=== PATIENT | female | born 1945 | race Caucasian/White ===

== ENCOUNTER 2020-05-26 14:22 | Emergency (ER) | payer MEDICARE, OTHER, SELFPAY ==
--- NOTE | 2020-05-26 | XR_ITS ---
EXAMINATION: XR third finger, LEFT CLINICAL INFORMATION: Foreign body COMPARISON: None TECHNIQUE: Three views of the left third finger. FINDINGS: 3 views of the left third finger demonstrate a radiopaque metallic staple spanning the third distal phalangeal joints within the volar soft tissues and with question extension of the more distal portion of the stable into the base of the distal phalanx. The staple does not involve the joint space. No definite fracture or dislocation is evident. XR/XR finger LT min 2V IMPRESSION: Metallic staple volar aspect of the third distal interphalangeal joint with question distal portion of staple possibly penetrating the bone base of the distal phalanx.
[2020-05-26 15:29] VITALS: BP 142/67; PULSE 56; RESP 18; TEMP 37; O2SAT 96; BMI 35.9
--- NOTE | 2020-05-26 15:56 | ED.SKABFB ---
HPI - Skin/Abscess/Foreign Bdy General Chief complaint: Recheck/Abnormal Lab/Rx Stated complaint: STAPLE IN FINGER Time Seen by Provider: 05/26/20 15:56 Source: patient Mode of arrival: ambulatory Limitations: no limitations History of Present Illness HPI narrative: 74 y/o female presenting with a staple stuck in her third left finger that happened earlier today after an accident with a staple gun while she was sewing. She presents with no active bleeding. She reports discomfort. Entire staple is in her finger. She does not think there are any additional fragments or more than 1 staple. complaint: foreign body Onset (ago): hour(s) (3) Related Data Previous Rx's Medication Instructions Recorded cephalexin [Keflex] 500 mg PO QID #40 cap 05/26/20 Allergies Allergy/AdvReac Type Severity Reaction Status Date / Time levofloxacin [From LEVAQUIN] AdvReac Mild flushed Verified 05/26/20 15:29 Review of Systems Review of Systems: Constitutional: No Fever, No Chills Cardiovascular: No Chest Pain, No SOB Respiratory: No Cough, No Sputum Gastrointestinal: No Nausea, No Vomiting, No Diarrhea, No abdominal Pain Musculoskeletal: + joint pain, No Myalgias Skin: No Skin Lesions, No rash Neuro: No Weakness, No Numbness Psych: No Anxiety/Panic, No Depression Heme/Lymph: No Bruising, No Lymphadenopathy PMFSH Past Medical History Attestation statement: The following information was validated with the patient. Medical History Diabetes HTN (hypertension) Thyroid activity decreased Social History Social History Smoking Status: Never smoker Use of substances other than those prescribed or required for medical reasons: No Advance Directives: No Advance Directives Information Provided: No Physical Exam Vital Signs: Vital Signs: Last Vital Signs Temp 98.6 F 05/26/20 15:29 Pulse 56 05/26/20 15:29 Resp 18 05/26/20 15:29 BP 142/67 H 05/26/20 15:29 Pulse Ox 96 05/26/20 15:29 Body Mass Index 35.9 Appearance: Alert. Oriented X3. No acute distress. HEENT: normal inspection CVS: Normal heart rate and rhythm. Pulses normal. Respiratory: No respiratory distress. Skin: Skin warm and dry. Normal skin color. Normal skin turgor. No rashes. Extremities: volar aspect of left 3rd digit with flat edge of metallic staple parallel to the skin at the DIP joint, no active bleeding. no surrouning erythema. NV intact. Neuro: Oriented X 3. No motor deficit. No sensory deficit. Course Course Course Narrative: 74 y/o female presents with a staple in her finger. XR shows Metallic staple volar aspect of the third distal interphalangeal joint with question distal portion of staple possibly penetrating the bone base of the distal phalanx. Staple was successfully removed. Repeat imaging pending. Tdap given. Reevaluation(s) Reevaluation #1: Repeat XR shows: Stable removed. No visible fracture or bone defect remaining Mild osteoarthritis Finger was soaked in hydrogen peroxide/saline mix. Will start on Keflex to prevent infection and have her follow up with PCP. Case was discussed with ortho for possible need for f/u with them vs hand surgery and they recommended f/u with PCP for wound monitoring. Stable for discharge. Patient counseled, all questions were answered. Procedures Foreign Body Removal Time Out Performed: no Site: left Description of foreign body: other (metallic staple ) Sedation/Analgesia: none Technique: removal with forceps Confirmed by:: direct visualization and radiograph Complications: none Post-procedure exam: awake, alert Neurovascular: normal distal pulse, normal capillary fill, distal light touch sensation intact, distal motor function normal and no signs of compartment syndrome Critical Care Time Critical Care Time Critical Care Time: No Discharge Plan Discharge Clinical Impression: Foreign body finger Patient Disposition: Home, Self-Care Instructions: Soft Tissue Foreign Body (ED), Puncture Wound (ED) Additional Instructions: X-rays show the staple was removed completely and there are no bone defect or fracture. Use topical bacitracin or triple antibiotic ointment to the wound 2 times per day. Take motrin and/or tylenol as needed for discomfort. Elevate hand/finger when able to help with pain. Monitor for signs of infection including swelling, redness, worsening pain or drainage of pus. Come back to the ER if you develop these. Case was discussed with Orthopedics and it is recommended that you follow up with your doctor to monitor the wound. Follow up with your doctor early next week for wound evaluation. Prescriptions: New cephalexin [Keflex] 500 mg capsule 500 mg PO QID Qty: 40 RF: 0
--- NOTE | 2020-05-26 16:42 | XR_ITS ---
EXAMINATION: XR FINGER, LEFT CLINICAL INFORMATION: Status post foreign body removal COMPARISON: X-rays of the left finger and hand performed earlier same day 3:45 PM TECHNIQUE: 3 views of the middle finger including AP view of the hand FINDINGS: The metallic staple has been removed. I do not see a fracture or visible bone defect. There is minimal scattered osteoarthritis of the interphalangeal joints and MCP joints manifested by small subchondral cysts and/or small marginal osteophytes. XR/XR finger LT min 2V IMPRESSION: Stable removed. No visible fracture or bone defect remaining Mild osteoarthritis
--- NOTE | 2020-05-26 17:00 | PC.NURSE ---
STAPLE WAS REMOVED BY PROVIDER. LEFT 3RD FINGER SOAKED IN HYDROGEN PEROXIDE. WAITING REPEAT XRAY RESULTS.
== END 2020-05-26 18:04 | disposition home or self-care (01) ==
PROVIDERS: Emergency Provider Internal Medicine; PCP Internal Medicine
DX: S61.243A Puncture wound with foreign body of left middle finger without damage to nail, initial encounter (principal); S60.413A Abrasion of left middle finger, initial encounter; M79.645 Pain in left finger(s); I10 Essential (primary) hypertension; E11.9 Type 2 diabetes mellitus without complications; Y28.8XXA Contact with other sharp object, undetermined intent, initial encounter; Y93.9 Activity, unspecified; Y92.009 Unspecified place in unspecified non-institutional (private) residence as the place of occurrence of the external cause; Y99.9 Unspecified external cause status; Z79.899 Other long term (current) drug therapy; Z23 Encounter for immunization
CPT/HCPCS: 10120; 73140; 90471; 90715; 99284

== ENCOUNTER 2020-08-22 07:34 | Emergency (ER) | payer MEDICARE, OTHER, SELFPAY ==
--- NOTE | ~2020-08-22 | US_ITS ---
EXAMINATION: US ABDOMEN LIMITED CLINICAL INFORMATION: Abdominal pain.. COMPARISON: Previous MRI and CT of the abdomen November 2019 TECHNIQUE: Real-time imaging of the right upper quadrant abdominal viscera. FINDINGS: PANCREAS: Normal. LIVER: Normal. The liver is normal in size. The liver contour is normal. Parenchymal echogenicity is normal. No focal hepatic lesion. There is intrahepatic biliary duct dilatation. This is similar to previous exams. GALLBLADDER: Surgically removed. COMMON BILE DUCT: Slightly dilated measuring 1 -1.3 cm in diameter. RIGHT KIDNEY: The right kidney appears slightly lobulated in contour and there is right renal cortical thinning. No hydronephrosis. No renal calculi or focal parenchymal lesions. The kidney measures 11 cm in maximum dimension. FREE FLUID: None. US/US abdomen limited IMPRESSION: Intra and extrahepatic biliary duct dilatation. This does not appear appreciably changed from previous CT and MRI November 2019. No common bile duct stone is seen.
--- NOTE | 2020-08-22 07:41 | ED_ITS ---
HPI - Abdominal Pain General Chief Complaint: Abdominal Pain Stated Complaint: abd pain Time Seen by Provider: 08/22/20 07:41 Source: patient Mode of arrival: ambulatory Limitations: no limitations History of Present Illness HPI narrative: Patient with epigastric pain states it feels like her prior gallstone attack. Patient has not had anything to eat in the last 4 days. 9 months ago she had ERCP and papilotomy MD elicited complaint: abdominal pain Pertinent past history: other (cholecystitisw) Onset (ago): day(s) Pain Consistency: intermittent Location: epigastric Severity: moderate Quality: stabbing Exacerbating factors: eating Associated symptoms: nausea and vomiting Related Data Previous Rx's Medication Instructions Recorded cephalexin [Keflex] 500 mg PO QID #40 cap 05/26/20 omeprazole 20 mg PO BID #30 cap 08/22/20 Allergies Allergy/AdvReac Type Severity Reaction Status Date / Time levofloxacin [From LEVAQUIN] AdvReac Mild flushed Verified 05/26/20 15:29 Review of Systems Constitutional: Reports no additional constitutional complaints Eyes: Reports no additional eye complaints Denies dizziness Cardiovascular: Reports no additional cardiovascular complaints Respiratory: Reports as per HPI Gastrointestinal: Reports no additional gastrointestinal complaints Genitourinary: Reports no additional female genitourinary complaints Musculoskeletal: Reports no additional musculoskeletal complaints Skin/Breast: Denies rash Denies dizziness and Denies Sensory deficit (Neuro) Psychiatric: Denies anxiety Physical Exam Vital Signs: Vital Signs: Last Vital Signs Temp 98 F 08/22/20 07:53 Pulse 72 08/22/20 07:53 Resp 18 08/22/20 07:53 BP 187/90 H 08/22/20 07:53 Pulse Ox 98 08/22/20 07:53 Body Mass Index 37.0 Const: Other: elderly in pain Nutritional Appearance: obese Orien tation/consciousness: oriented to person and patient oriented x3 Limitations: no limitations HENMT: Head: Yes normal to inspection Ears: external ears normal General nose exam: Normal external nose present Mouth: Normal oral and palatal mucosa present and oropharynx normal Throat: Yes posterior oropharynx normal Eyes: General: appearance normal, both eyes and all related structures Neck: Other: supple Neck: Yes normal visual inspection Chest: Chest palpation & inspection: normal inspection of the chest Resp: Auscultation: clear to auscultation bilaterally Cardio: Jugular venous distension: no JVD Rate: regular rate Rhythm: regular rhythm Heart sounds: S1 normal heart sound present and S2 normal heart sound present GI: Other: epigastric and right upper quadrant tenderness no guarding or rebound. Palpation (GI): Soft to palpation and No hepatosplenomegaly present Auscultation: normal bowel sounds : General: Yes no CVA tenderness Back/Spine/Pelvis: Back: no CVA tenderness Skin: General skin exam: no rashes or lesions noted Neuro: General: oriented to person and patient oriented x3 Cranial nerves: Yes CN's II-XII intact bilaterally Motor exam (neuro): 5/5 motor strength present throughout Sensory Exam: No Sensory deficit (Neuro) Extrem: General: Yes normal to inspection Psych: Appearance: grossly normal Course Course Course Narrative: discussed with Dr. Kingston will increase omeprazole BID and will follow up expected to have Biliary obstruction MDM - Abdominal Pain MDM Narrative Medical decision making narrative: concerned about biliary obstruction, gastritis, hepatitis. Labs normal ultrasound shows mild biliary diliation which is expected Differential Diagnosis Differential diagnosis: Likely abdominal pain, gastritis and peptic ulcer disease Lab Data Result diagrams: 08/22/20 08:02 08/22/20 08:02 Labs: Lab Results 08/22/20 08/22/20 08/22/20 Range/Units 08:02 08:02 10:39 WBC 7.7 (4.8-10.8) X10*3/uL RBC 4.34 (4.20-5.50) X10*6/uL Hgb 13.3 (12.0-16.0) g/dl Hct 41.1 (37-47) % MCV 94.7 (80-98) fL MCH 30.6 (27.0-33.0) pg MCHC 32.4 (31.0-35.0) g/dl RDW 12.5 (11.0-16.0) % Plt Count 249 (160-400) X10*3/uL MPV 10.2 (9.4-12.3) fL Immature Gran % (Auto) 0.3 (0.0-0.4) % Neut % (Auto) 63.0 (45-73) % Lymph % (Auto) 26.4 (20-40) % [place] % (Auto) 8.5 (2-11) % Eos % (Auto) 1.4 (0-4) % Baso % (Auto) 0.4 (0-2) % Lymph # (Auto) 2.0 (1.2-4.9) X10*3/uL [place] # (Auto) 0.7 (0.1-1.2) X10*3/uL Eos # (Auto) 0.1 (0.0-0.4) X10*3/uL Baso # (Auto) 0.0 (0.0-0.2) X10*3/uL Abs Immat Gran (auto) 0.02 (0.00-0.03) X10*3/uL Absolute Neuts (auto) 4.9 (2.0-8.3) X10*3/uL Absolute Nucleated RBC 0.000 (0.0-0.012) X10*3/uL Nucleated RBC % (auto) 0.0 (0.0-0.2) /100WBC Sodium 138 (135-145) mmol/L Potassium 5.4 H (3.3-5.1) mmol/L Chloride 98 (96-108) mmol/L Carbon Dioxide 28 (22-29) mmol/L Anion Gap 17 (12-20) BUN 23 H (9-16) mg/dL Creatinine 1.63 H (0.5-1.4) mg/dL Estim Creat Clear Calc 29.9 Estimated GFR 31 Random Glucose 209 H (60-115) mg/dL Calcium 9.2 (8.4-10.2) mg/dL Total Bilirubin 0.5 (0.0-1.0) mg/dL Direct Bilirubin 0.2 (0.0-0.5) mg/dL AST 9 (5-31) U/L ALT 11 (0-31) U/L Alkaline Phosphatase 113 (39-117) U/L Troponin I High Sens 5.9 (<3.5-17.0) ng/L Total Protein 7.3 (6.5-8.0) g/dL Albumin 4.1 (3.5-5.0) g/dL Lipase 13 (8-78) U/L ECG Data Attestation: I personally reviewed and interpreted this ECG as follows: Interpretation: sinus 70, new LBBB, flipped ts I and AVL and V6 Discharge Plan Discharge Clinical Impression: Abdominal pain Qualifiers: Abdominal location: right upper quadrant Qualified Code(s): R10.11 - Right upper quadrant pain Gastritis Qualifiers: Gastritis type: unspecified gastritis Chronicity: chronic Gastritis bleeding: without bleeding Qualified Code(s): K29.50 - Unspecified chronic gastritis without bleeding Patient Disposition: Home, Self-Care Instructions: Abdominal Pain (ED) Prescriptions: New omeprazole 20 mg capsule,delayed release(DR/EC) 20 mg PO BID Qty: 30 RF: 0 No Action cephalexin [Keflex] 500 mg capsule 500 mg PO QID Qty: 40 RF: 0 Referrals: [place] Raymundo MD [Primary Care Provider] - 2 days [facility] Past Medical History Medical History Diabetes HTN (hypertension) Thyroid activity decreased Social History Social History Alcohol intake: never Smoking Status: Never smoker Use of substances other than those prescribed or required for medical reasons: No Advance Directives: Yes Advance Directives Information Provided: Yes Advance Directives on File: No
[2020-08-22 07:53] VITALS: BP 187/90; PULSE 72; RESP 18; TEMP 36.6; O2SAT 98; BMI 37.0
--- NOTE | 2020-08-22 08:01 | ECG_ITS ---
Test Reason : EPIGASTRIC PAIN Blood Pressure : / mmHG Vent. Rate : 073 BPM Atrial Rate : 073 BPM P-R Int : 176 ms QRS Dur : 138 ms QT Int : 442 ms P-R-T Axes : 044 -09 139 degrees QTc Int : 486 ms Normal sinus rhythm Left bundle branch block Abnormal ECG When compared with ECG of 24-JUL-2017 19:16, MT interval has decreased Left bundle branch block is now Present Borderline criteria for Anterior infarct are no longer Present Referred By: Jovan Simons Electronically Signed By:COLUMBA ASIF MD
[2020-08-22 08:07] LABS: MANUAL DIFF FLAG NO
[2020-08-22 08:09] LABS: Basophils Percent Auto 0.4 % (0-2); Eosinophils Absolute Auto 0.1 X10*3/uL (0.0-0.4); Eosinophils Percent Auto 1.4 % (0-4); Hematocrit 41.1 % (37-47); Hemoglobin 13.3 g/dl (12.0-16.0); Imm Gran Abs Auto 0.02 X10*3/uL (0.00-0.03); Imm Gran Pct Auto 0.3 % (0.0-0.4); Lymphocytes Percent Auto 26.4 % (20-40); Mean Corpuscular HGB Conc 32.4 g/dl (31.0-35.0); Mean Corpuscular Hemoglobin 30.6 pg (27.0-33.0); Mean Corpuscular Volume 94.7 fL (80-98); Mean Platelet Volume 10.2 fL (9.4-12.3); Monocytes Absolute Auto 0.7 X10*3/uL (0.1-1.2); Monocytes Percent Auto 8.5 % (2-11); Neutrophils Absolute Auto 4.9 X10*3/uL (2.0-8.3); Platelet Count 249 X10*3/uL (160-400); Red Blood Count 4.34 X10*6/uL (4.20-5.50); Red Cell Distribution Width 12.5 % (11.0-16.0); White Blood Count 7.7 X10*3/uL (4.8-10.8)
[2020-08-22] MEDS: Pantoprazole Sodium 40 MG/10 ML VIAL IVPUSH (08:12)
[2020-08-22] MEDS: ondansetron HCL 4 MG/2 ML VIAL IVPUSH ×2 (08:12→13:45)
[2020-08-22] MEDS: 0.9 % Sodium Chloride 1,000 ML 125 ML IVCONT (08:12)
--- NOTE | 2020-08-22 08:18 | PC.NURSE ---
iv established, blood labs obtained and sent, seen by provider, ekg completed. placed on tele, hr appears regular. medicated per emar. wctm.
[2020-08-22 08:33] LABS: Alanine Aminotransferase 11 U/L (0-31); Albumin Level 4.1 g/dL (3.5-5.0); Alkaline Phosphatase 113 U/L (39-117); Anion Gap 17 (12-20); Aspartate Amino Transferase 9 U/L (5-31); Bilirubin Direct 0.2 mg/dL (0.0-0.5); Bilirubin Total 0.5 mg/dL (0.0-1.0); Blood Urea Nitrogen 23 mg/dL (9-16); Calcium 9.2 mg/dL (8.4-10.2); Carbon Dioxide 28 mmol/L (22-29); Chloride 98 mmol/L (96-108); Creatinine Clr Calc Pharmacy 29.9; Estimated Glomerular Filt Rate 31; Glucose Random 209 mg/dL (60-115); Lipase 13 U/L (8-78); Potassium 5.4 mmol/L (3.3-5.1); Sodium 138 mmol/L (135-145); Total Protein 7.3 g/dL (6.5-8.0)
[2020-08-22] MEDS: Lidocaine HCl Viscous 2 % 15 ML SOLUTION MUCOUS MEM (08:41)
[2020-08-22] MEDS: PHENobarb/Hyoscy/Atropine/Scop 10 ML ELIXIR PO (08:41)
[2020-08-22] MEDS: Magnesium Hydrox/Alum Hydrox 30 ML ORAL.SUSP PO (08:42)
[2020-08-22 11:18] LABS: Troponin-I High Sensitivity 5.9 ng/L (<3.5-17.0)
== END 2020-08-22 13:58 | disposition home or self-care (01) ==
PROVIDERS: Emergency Provider Emergency Medicine; PCP Internal Medicine
DX: K29.50 Unspecified chronic gastritis without bleeding (principal); R10.11 Right upper quadrant pain; E11.9 Type 2 diabetes mellitus without complications; I10 Essential (primary) hypertension; Z79.899 Other long term (current) drug therapy
CPT/HCPCS: 36415; 76705; 80048; 80076; 83690; 84484; 85025; 93005; 96365; 96375; 96376; 99284; J2405

== ENCOUNTER 2020-08-28 08:33 | Outpatient (REF) | payer MEDICARE, OTHER, SELFPAY ==
--- NOTE | ~2020-08-28 | MR_ITS ---
EXAMINATION: MR ABDOMEN WITHOUT CONTRAST CLINICAL INFORMATION: Epigastric abdominal pain. History choledocholithiasis. COMPARISON: Ultrasound abdomen 04/21/2021, MR abdomen 16/09/2019, CT abdomen 12/19/2019 TECHNIQUE: MR abdomen is performed without gadolinium contrast. Additional MRCP sequences performed with additional maximum intensity projection MIP images generated on the MR workstation and uploaded to PACS. FINDINGS: LUNG BASES: The visualized lung bases are unremarkable. LIVER, GALLBLADDER, AND BILIARY TREE: The liver is normal in size, smooth in contour, and normal in signal. No focal hepatic lesion or biliary ductal dilatation is present. There has been prior cholecystectomy. The common hepatic duct and common bile duct are smooth in caliber and show no intraluminal filling defects. Common duct measures 1.0 cm compared with prior measurement 1.3 cm on MR 12/20/2019. PANCREAS: Normal in size and contour and signal. Normal pancreatic duct. SPLEEN: Unremarkable. ADRENAL GLANDS: Unremarkable. KIDNEYS AND URETERS: The kidneys are normal in size and shape. No hydronephrosis. No perinephric stranding. GASTROINTESTINAL TRACT: No bowel obstruction. No ascites or fluid collection. ABDOMINAL WALL: No significant hernia is appreciated. LYMPH NODES: No lymphadenopathy. VASCULAR: Unremarkable. OSSEOUS STRUCTURES: Degenerative disc changes lower lumbar spine L3-L4 through L5-S1. MR/MR abdomen wo con IMPRESSION: 1. Prior cholecystectomy. No biliary ductal dilatation or choledocholithiasis. 2. Pancreas unremarkable. 3. No hydronephrosis. 4. No ascites or fluid collection.
== END 2020-08-28 08:34 | disposition home or self-care (01) ==
LOC: HO.MRI 08:33
PROVIDERS: Visit Provider Internal Medicine
DX: R10.13 Epigastric pain (principal); K83.8 Other specified diseases of biliary tract
CPT/HCPCS: 74181

== ENCOUNTER 2020-09-24 10:23 | Day surgery (SDC) | payer MEDICARE, OTHER, SELFPAY ==
[2020-09-24 10:55] VITALS: BP 161/68; PULSE 70; RESP 18; TEMP 36.5; O2SAT 97; BMI 37.7; BMI 38.2
[2020-09-24] MEDS: Lactated Ringers 1,000 ML 50 ML IV (11:19)
[2020-09-24 11:48] LABS: Glucose, Whole Blood 110 mg/dL (60-115)
--- NOTE | 2020-09-24 12:29 | P.CONAN_ITS ---
[facility] Past Medical History Medical History Diabetes HTN (hypertension) Thyroid activity decreased Social History Social History Alcohol intake: never Smoking Status: Never smoker Second Hand Smoke Exposure: No Use of substances other than those prescribed or required for medical reasons: No Advance Directives: No Advance Directives Information Provided: Yes Recently lost weight without trying: No Meds Allergies Allergy/AdvReac Type Severity Reaction Status Date / Time levofloxacin [From LEVAQUIN] AdvReac Mild flushed Verified 05/26/20 15:29 Active Medications: Current Medications Generic Name Dose Route Start Last Admin Trade Name Freq PRN Reason Stop Dose Admin Lactated Ringer's 1,000 mls @ 50 mls/hr 09/24/20 07:30 09/24/20 11:19 Lr IV 50 mls/hr .Q20H YADY Administration Sodium Biphosphate/Sodium Phosphate 133 ml 09/24/20 06:04 Sodium Phosphate,[place]-Dibasic 133 Ml Enema PA ONCE PRN Poor Colonoscopy Prep Results Exam Exam Date and Time: September 24, 2020 1229 Height,Weight and Vital Signs: Height 5 ft Weight 88.904 kg Last Vital Signs Temp 97.7 F 09/24/20 10:55 Pulse 70 09/24/20 10:55 Resp 18 09/24/20 10:55 BP 161/68 H 09/24/20 10:55 Pulse Ox 97 09/24/20 10:55 Pertinent Lab Results Pertinent Lab Results: Laboratory Tests 09/24/20 11:03 POC Glucose 110 Airway Mallampati Class: II (Edentulous) TM Dist: >3cm Neck ROM: Full Heart: RRR Lungs: CtAcBL Assessment and Plan Assessment Anesthesia Assessment: Anesthesia Plan Discussed and Chart Reviewed Final Anesthetic Review NPO: Yes (Sip water with medicine) ASA Class: III Final Preanesthetic Review: No Changes in Pt Med Stat and Consent Obtained/Reviewed Patient Risk: Intermediate Procedure Risk: Intermediate Anesthetic Plan Anesthetic Plan: MAC: Disposition: Standard PACU
[2020-09-24 13:40] VITALS: BP 128/54; PULSE 62; RESP 16; TEMP 36.6; O2SAT 96
--- NOTE | 2020-09-24 13:46 | PM.OP ---
Brief Operative Note Date of Service: 09/24/20 Pre-op diagnosis: GERD,Screening Post-op diagnosis: other (Hiatal hernia, Gastritis, Colon polyp, Diverticulosis) Procedure: EGD with biopsy, Colonoscopy to the cecum and TI with biopsy and removal of polyp Surgeon: Carlo Da Silva Anesthesia: MAC Estimated blood loss (mL): 4.0 Pathology: other (A. Gastric antrum B. Colon polyp at 40cm) Condition: stable Disposition: PACU
[2020-09-24 13:55] VITALS: BP 145/56; PULSE 62; RESP 16; O2SAT 96
--- NOTE | 2020-09-24 14:07 | OP_ITS ---
SURGEON: Carlo Da Silva MD INDICATIONS: The patient presents for evaluation of abdominal discomfort, gastroesophageal reflux, and colorectal cancer screening. Full consent has been obtained from her for this, including risks of bleeding and perforation. PREOPERATIVE DIAGNOSIS: POSTOPERATIVE DIAGNOSIS: PROCEDURE PERFORMED: Esophagogastroduodenoscopy with biopsies, and colonoscopy to the cecum and terminal ileum with biopsy and removal of polyp. ESTIMATED BLOOD LOSS: COMPLICATIONS: ANESTHESIA: Monitored anesthesia care. ASSISTANTS: SPECIMENS: PREOPERATIVE DIAGNOSES: Gastroesophageal reflux, abdominal pain, colorectal cancer screening. POSTOPERATIVE DIAGNOSES: Gastroesophageal reflux, abdominal pain, colorectal cancer screening, gastritis, hiatal hernia, colon polyp, diverticulosis and internal hemorrhoids. DESCRIPTION OF PROCEDURE: The patient was placed in the left lateral decubitus position. The Olympus video gastroscope was passed in the posterior oropharynx and upper esophagus under direct vision. The scope was passed slowly into the distal esophagus. The gastroesophageal junction appeared normal at 35 cm. There was no sign of any esophagitis nor Cervantes's mucosa. The scope was entered into the stomach. There was a small hiatal hernia. The scope was advanced to the pylorus and the duodenum was cannulated to the descending portion. The duodenum including the bulb appeared normal without mass or ulceration. The scope was withdrawn back into the stomach. The gastric antrum and body had diffuse changes of a gastritis with some erythema and edema, but no erosions or ulceration. There was good peristalsis. Biopsies were obtained. The scope was retroflexed visualizing the proximal stomach carefully, which had similar changes of gastritis with some erythema and edema, but no ulceration nor mass. The scope was straightened out and withdrawn back into the esophagus. The esophageal mucosa appeared normal. The scope was withdrawn from the patient. She was turned around for the colonoscopy. The digital rectal exam revealed no abnormalities. The Olympus video pediatric colonoscope was entered into the rectum and advanced easily to the cecum. Once in the cecum, I did identify normal-appearing cecal pouch with appendiceal orifice and a normal-appearing ileocecal valve. The terminal ileum was cannulated and appeared normal. The scope was withdrawn back in the colon. The entire cecum and ileocecal valve appeared normal. The scope was slowly withdrawn assessing all mucosal surfaces carefully. Preparation was excellent. At 40 cm, was a flat approximately 4 or 5 mm polyp, which was biopsied and removed. I did not visualize any other polyps, colitis, nor angiodysplasia. There was a moderate amount of sigmoid diverticulosis. In the rectum, scope was retroflexed visualizing small internal hemorrhoids, but no other pathology. The rectal mucosa appeared normal. The scope was straightened out and withdrawn from the patient. She tolerated the procedure well and was returned to the recovery area in stable condition. IMPRESSION: 1. Small hiatal hernia. 2. Gastritis. 3. Small colon polyp. 4. Diverticulosis. 5. Internal hemorrhoids. PLAN: The results of the pathology will be checked. Even if the colon polyp is a tubular adenoma, I do not think she will need any further screening colonoscopies given her age and these minimal findings. She was advised not to use any aspirin and NSAIDs for 1 week. She was advised to continue her daily omeprazole for relief of reflux. If Helicobacter pylori is present in the gastric biopsies, we would then decide whether that needs to be treated depending upon her clinical course. However at this point, she is doing well on omeprazole and reports that her previous abdominal discomfort and reflux are much improved. MD BRYAN Worthington/VANESSA / [phone]
[2020-09-24 14:13] VITALS: BP 169/60; PULSE 64; RESP 16; TEMP 36.6; O2SAT 96
[2020-09-24] MEDS: oxyCODONE HCl Immed Release 5 MG TABLET PO (14:17)
--- NOTE | 2020-09-24 14:28 | P.EN_ITS ---
Event Note Date of Service: 09/24/20 Event Note: GI-EGD-Full note dictated Findings: 1. Severe erosive esophagitis involving the lower 50% of the esophagus. Biopsied at 25cm. 2. Gastritis-antrum biopsied x 3 3. Small hiatal hernia Rec: Start po PPI BID for 2 months and then QD [facility]. 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 F/U labs in AM. Resume diet today. D/W . Thanks
--- NOTE | 2020-09-24 14:32 | PM.OP ---
Brief Operative Note Date of Service: 09/24/20 Pre-op diagnosis: UGI bleed Post-op diagnosis: other (Severe erosive esophagitis, Gastritis, Hiatal hernia) Procedure: EGD with biopsies Surgeon: Carlo Da Silva Anesthesia: MAC Estimated blood loss (mL): 5.0 Pathology: other (A. Gastric antrum B. Esophagus at 25cm) Condition: stable Disposition: PACU
== END 2020-09-24 14:44 | disposition home or self-care (01) ==
PROVIDERS: PCP Internal Medicine; Visit Provider Internal Medicine
PROC: (CPT 45380; principal; 2020-09-24 11:30)
DX: Z12.11 Encounter for screening for malignant neoplasm of colon (principal); K51.40 Inflammatory polyps of colon without complications; K57.30 Diverticulosis of large intestine without perforation or abscess without bleeding; K64.8 Other hemorrhoids; K21.9 Gastro-esophageal reflux disease without esophagitis; K29.50 Unspecified chronic gastritis without bleeding; K44.9 Diaphragmatic hernia without obstruction or gangrene; I10 Essential (primary) hypertension; E11.9 Type 2 diabetes mellitus without complications; Z88.1 Allergy status to other antibiotic agents; Z79.899 Other long term (current) drug therapy
CPT/HCPCS: 45380; 43239; 82947; 88305; 88342

== ENCOUNTER 2022-07-31 10:12 | Outpatient (REF) | payer MEDICARE, OTHER, SELFPAY ==
--- NOTE | ~2022-07-31 | XR_ITS ---
EXAMINATION: XR CERVICAL SPINE CLINICAL INFORMATION: Neck pain. COMPARISON: None. TECHNIQUE: 3 views of the cervical spine were obtained. FINDINGS: At the C4-C5 level, there is moderate to severe disc space narrowing with endplate osteophytes indicative of moderate to severe degenerative disc disease. There is also Grade 1 retrolisthesis of C4 on C5 related to this degenerative change. Possible facet arthrosis. C5-C6: Moderate degenerative disc changes with endplate osteophytes and disc-space narrowing. No definite facet arthrosis. Remaining disc spaces otherwise normal with vertebral body height normal throughout. Vertebral bodies normally aligned except for the C4-C5 level. Surrounding bone and soft tissues otherwise unremarkable. XR/XR cervical spine 3V IMPRESSION: Spondylosis of the cervical spine with degenerative disc disease most prominent at the C4-C5 level where there is also Grade 1 retrolisthesis.
--- NOTE | ~2022-07-31 | XR_ITS ---
EXAMINATION: XR LUMBOSACRAL SPINE CLINICAL INFORMATION: Lumbago with sciatica. COMPARISON: Prior imaging examinations including most recent CT scan of the abdomen and pelvis November 2019 and x-rays lumbar sacral spine September 2012. TECHNIQUE: Three views of the lumbosacral spine. FINDINGS: There is advanced degenerative disc changes at L3-L4 L4-L5 and L5-S1 with marked endplate osteophytes, subchondral sclerosis, and variable disc space narrowing. Postsurgical changes are also noted posteriorly at the L4-L5 level, unchanged overlying the spinous processes. There is associated Grade 1 anterolisthesis at L4-L5 and L5-S1 levels, unchanged. Additional mild degenerative disc changes present within the remaining lumbar sacral spine manifested by endplate osteophytes without disc space narrowing. There is no fracture or bone lesion. Prominent arterial calcification noted in the abdomen including the aorta and branch vessels. 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 Progression compared with the prior x-ray September 2012.
[2022-07-31 14:08] LABS: Hematocrit 34.9 % (37.0-47.0); Hemoglobin 10.7 g/dl (12.0-16.0); Mean Corpuscular HGB Conc 30.7 g/dl (31.0-35.0); Mean Corpuscular Hemoglobin 29.2 pg (27.0-33.0); Mean Corpuscular Volume 95.4 fL (80.0-98.0); Platelet Count 256 X10*3/uL (160-400); Red Blood Count 3.66 X10*6/uL (4.20-5.50); Red Cell Distribution Width 14.1 % (11.0-16.0); White Blood Count 7.5 X10*3/uL (4.8-10.8)
[2022-07-31 14:41] LABS: Anion Gap 14 (12-20); Blood Urea Nitrogen 42 mg/dL (9-16); Calcium 8.5 mg/dL (8.4-10.2); Carbon Dioxide 33 mmol/L (22-29); Chloride 99 mmol/L (96-108); Estimated Glomerular Filt Rate 20; Iron 61 mcg/dL (30-160); Percent Iron Saturation 19 % (15-50); Phosphorus 3.8 mg/dL (2.7-4.5); Potassium 3.7 mmol/L (3.3-5.1); Sodium 142 mmol/L (135-145); Total Iron Binding Capacity 324 mcg/dL (228-428); Unsaturated Iron Binding 263 ug/dL
[2022-07-31 14:57] LABS: Vitamin D 25-OH Total 9.4 ng/mL (>30)
[2022-08-04 15:44] LABS: Calcium (PTHI) 8.7 mg/dL (8.6-10.4); PTHI 238 pg/mL (16-77)
== END 2022-07-31 10:13 | disposition home or self-care (01) ==
LOC: HO.HMGCX 10:12
PROVIDERS: Internal Medicine Nephrology; PCP Internal Medicine; Visit Provider Internal Medicine
DX: E11.21 Type 2 diabetes mellitus with diabetic nephropathy (principal); N18.4 Chronic kidney disease, stage 4 (severe); M54.40 Lumbago with sciatica, unspecified side
CPT/HCPCS: 36415; 72040; 72100; 80051; 82306; 82310; 82565; 83540; 83970; 84100; 84520; 85027

== ENCOUNTER 2022-10-07 11:12 | Emergency (ER) | payer MEDICARE, OTHER, SELFPAY ==
[2022-10-07 11:35] VITALS: BP 179/61; PULSE 68; RESP 18; TEMP 36.8; O2SAT 95; BMI 38.2
--- NOTE | 2022-10-07 11:35 | ED.GENADULT ---
HPI - General Adult General Chief complaint: General Medical <BON Neely - Last Filed: 10/11/22 10:59> Stated complaint: Blocked ears/Upper abd pain/Unable to urinate <BON Neely - Last Filed: 10/11/22 10:59> Time Seen by Provider: 10/07/22 12:47 <BON Neely - Last Filed: 10/11/22 10:59> Source: patient <Jovan Simons MD - Last Filed: 10/07/22 14:01> Mode of arrival: ambulatory <Jovan Simons MD - Last Filed: 10/07/22 14:01> Limitations: no limitations <Jovan Simons MD - Last Filed: 10/07/22 14:01> History of Present Illness HPI narrative: patient with abdominal pain, difficulty urinating for 5 days, She feels the urge to urinate but she can't pee. <Jovan Simons MD - Last Filed: 10/07/22 14:01> Related Data Home medications: Previous Rx's Medication Instructions Recorded cephalexin 500 mg capsule (Keflex) 500 mg PO QID #40 caps 05/26/20 omeprazole 20 mg capsule,delayed 20 mg PO BID #30 caps 08/22/20 release ondansetron HCl 4 mg tablet 4 mg PO Q8H PRN nausea and 08/22/20 (Zofran) vomiting #10 tabs cephalexin 500 mg capsule 500 mg PO Q6H 7 days #28 caps 10/07/22 polymyxin B sulfate 10,000 1 drp ophthalmic (eye) QID 7 days 10/09/22 unit-trimethoprim 1 mg/mL eye #10 mL drops (Polytrim) <BON Neely - Last Filed: 10/11/22 10:59> Allergies/adverse reactions: Allergies Allergy/AdvReac Type Severity Reaction Status Date / Time levofloxacin [From LEVAQUIN] AdvReac Mild flushed Verified 10/09/22 10:50 <BON Neely - Last Filed: 10/11/22 10:59> Review of Systems Review of Systems: Yes all other systems are reviewed and are negative <Jovan Simons MD - Last Filed: 10/07/22 14:01> Gastrointestinal: Gastrointestinal: Reports abdominal pain <Jovan Simons MD - Last Filed: 10/07/22 14:01> Comments: inability to urinate <Jovan Simons MD - Last Filed: 10/07/22 14:01> [facility] Past Medical History Medical History: Medical History Diabetes HTN (hypertension) Thyroid activity decreased <BON Neely - Last Filed: 10/11/22 10:59> Social History Social History: Social History Alcohol intake: never Patient Tobacco Use Status: Never used Tobacco Second Hand Smoke Exposure: No Advance Directives Date on File: 08/22/20 <BON Neely - Last Filed: 10/11/22 10:59> Physical Exam ED Vital Signs: Vital Signs - 24 hr 10/07/22 11:35 Temperature 98.3 F Pulse Rate 68 Respiratory Rate 18 Blood Pressure 179/61 H Pulse Oximetry 95 Oxygen Delivery Method Room Air BMI result Body Mass Index 38.2 <BON Neely - Last Filed: 10/11/22 10:59> Vital Signs - 24 hr 10/07/22 11:35 Temperature 98.3 F Pulse Rate 68 Respiratory Rate 18 Blood Pressure 179/61 H Pulse Oximetry 95 Oxygen Delivery Method Room Air BMI result Body Mass Index 38.2 <Jovan Simons MD - Last Filed: 10/07/22 14:01> Const Other: elderly obese female <Jovan Simons MD - Last Filed: 10/07/22 14:01> General: healthy appearing <Jovan Simons MD - Last Filed: 10/07/22 14:01> Orientation/consciousness: oriented to person and patient oriented x3 <Jovan Simons MD - Last Filed: 10/07/22 14:01> Limitations: no limitations <Jovan Simons MD - Last Filed: 10/07/22 14:01> HENMT Other: bilateral cloudy TM Effusion right greater than left no erythema <Jovan Simons MD - Last Filed: 10/07/22 14:01> Head: Yes normal to inspection <Jovan Simons MD - Last Filed: 10/07/22 14:01> General nose exam: Normal external nose present <Jovan Simons MD - Last Filed: 10/07/22 14:01> Mouth: Normal oral and palatal mucosa present and oropharynx normal <Jovan Simons MD - Last Filed: 10/07/22 14:01> Throat: Yes posterior oropharynx normal <Jovan Simons MD - Last Filed: 10/07/22 14:01> Eyes General: appearance normal, both eyes and all related structures <Jovan Simons MD - Last Filed: 10/07/22 14:01> Neck Neck: Yes normal visual inspection <Jovan Simons MD - Last Filed: 10/07/22 14:01> Chest Chest palpation & inspection: normal inspection of the chest <Jovan Simons MD - Last Filed: 10/07/22 14:01> Resp Auscultation: clear to auscultation bilaterally <Jovan Simons MD - Last Filed: 10/07/22 14:01> Cardio Jugular venous distension: no JVD <Jovan Simons MD - Last Filed: 10/07/22 14:01> Rate: regular rate <Jovan Simons MD - Last Filed: 10/07/22 14:01> Rhythm: regular rhythm <Jovan Simons MD - Last Filed: 10/07/22 14:01> Heart sounds: S1 normal heart sound present and S2 normal heart sound present <Jovan Simons MD - Last Filed: 10/07/22 14:01> GI Other: soft diffusely tender <Jovan Simons MD - Last Filed: 10/07/22 14:01> Palpation (GI): Soft to palpation, Tenderness to palpation present (GI) and No hepatosplenomegaly present <Jovna Simons MD - Last Filed: 10/07/22 14:01> Auscultation: normal bowel sounds <Jovan Simons MD - Last Filed: 10/07/22 14:01> General: Yes no CVA tenderness <Jovan Simons MD - Last Filed: 10/07/22 14:01> Back/Spine/Pelvis Back: no CVA tenderness <Jovan Simons MD - Last Filed: 10/07/22 14:01> Skin General skin exam: no rashes or lesions noted <Jovan Simons MD - Last Filed: 10/07/22 14:01> Neuro General: oriented to person and patient oriented x3 <Jovan Simons MD - Last Filed: 10/07/22 14:01> Cranial nerves: Yes CN's II-XII intact bilaterally <Jovan Simons MD - Last Filed: 10/07/22 14:01> Motor exam (neuro): 5/5 motor strength present throughout <Jovan Simons MD - Last Filed: 10/07/22 14:01> Extrem General: Yes normal to inspection <Jovan Simons MD - Last Filed: 10/07/22 14:01> Psych Appearance: grossly normal <Jovan Simons MD - Last Filed: 10/07/22 14:01> Course Course Course Narrative: RME--77yo Fw/PMHx DM, HTN, c/o blocked ears x5 days with decreased hearing. Also reports difficulty urinating with decreased stream x5 days, w/ diffuse abdominal discomfort. Denies fever, nausea/vomiting, dysuria/hematuria Abdomen soft diffusely tender on exam. Bilateral ears with effusion behind TMs > right EKG, labs, UA, bladder scan ordered <BON Neely - Last Filed: 10/11/22 10:59> Reevaluation(s) Reevaluation #1: soft nonfocal nonsurgical abdomen, ua infected, will dc on keflex <Jovan Simons MD - Last Filed: 10/07/22 14:01> Time: 13:52 <Jovan Simons MD - Last Filed: 10/07/22 14:01> Medications Administered Discontinued Medications Generic Name Dose Route Start Last Admin Trade Name Freq PRN Reason Stop Dose Admin Sodium Chloride 250 mls @ 999 mls/hr 10/07/22 13:15 10/07/22 13:31 Ns IV 10/07/22 13:30 999 mls/hr .Q16M YADY Administration Ceftriaxone Sodium 1 gm/ 50 mls @ 100 mls/hr 10/07/22 13:15 10/07/22 13:31 Sodium Chloride IV 10/07/22 13:44 100 mls/hr ONCE ONE Administration <BON Neely - Last Filed: 10/11/22 10:59> Medications Administered Discontinued Medications Generic Name Dose Route Start Last Admin Trade Name Juveq PRN Reason Stop Dose Admin Sodium Chloride 250 mls @ 999 mls/hr 10/07/22 13:15 10/07/22 13:31 Ns IV 10/07/22 13:30 999 mls/hr .Q16M YADY Administration Ceftriaxone Sodium 1 gm/ 50 mls @ 100 mls/hr 10/07/22 13:15 10/07/22 13:31 Sodium Chloride IV 10/07/22 13:44 100 mls/hr ONCE ONE Administration <Jovan Simons MD - Last Filed: 10/07/22 14:01> Medical Decision Making Differential Diagnosis Differential Diagnoses: The differential diagnosis associated with the presentation includes (urinary retention, renal failure, UTI, cystitis were all considered) <Jovan Simons MD - Last Filed: 10/07/22 14:01> Admission/Observation Consideration of admission/observation: Escalation of care including admission/observation considered (In this elderly female with abdominal pain and inability to urinate, admission was considered. ) <Jovan Simons MD - Last Filed: 10/07/22 14:01> Lab Data MDM Lab Attestation statement: I reviewed the patient's lab results. <Jovan Simons MD - Last Filed: 10/07/22 14:01> Result Diagrams: 10/07/22 11:56 10/07/22 11:56 <BON Neely - Last Filed: 10/11/22 10:59> Labs: Lab Results 10/07/22 10/07/22 10/07/22 Range/Units 11:56 11:56 12:32 WBC 4.8 (4.8-10.8) X10*3/uL RBC 4.00 L (4.20-5.50) X10*6/uL Hgb 11.9 L (12.0-16.0) g/dl Hct 37.2 (37.0-47.0) % MCV 93.0 (80.0-98.0) fL MCH 29.8 (27.0-33.0) pg MCHC 32.0 (31.0-35.0) g/dl RDW 14.5 (11.0-16.0) % Plt Count 228 (160-400) X10*3/uL MPV 10.8 (9.4-12.3) fL Immature Gran % (Auto) 0.4 (0.0-0.4) % Neut % (Auto) 62.0 (45-73) % Lymph % (Auto) 23.8 (20-40) % [place] % (Auto) 8.8 (2-11) % Eos % (Auto) 4.0 (0-4) % Baso % (Auto) 1.0 (0-2) % Lymph # (Auto) 1.1 L (1.2-4.9) X10*3/uL [place] # (Auto) 0.4 (0.1-1.2) X10*3/uL Eos # (Auto) 0.2 (0.0-0.4) X10*3/uL Baso # (Auto) 0.1 (0.0-0.2) X10*3/uL Abs Immat Gran (auto) 0.02 (0.00-0.03) X10*3/uL Absolute Neuts (auto) 3.0 (2.0-8.3) x10*3/uL Absolute Nucleated RBC 0.000 (0.0-0.012) X10*3/uL Nucleated RBC % (auto) 0.0 (0.0-0.2) /100WBC Sodium 143 (135-145) mmol/L Potassium 4.4 (3.3-5.1) mmol/L Chloride 108 (96-108) mmol/L Carbon Dioxide 29 (22-29) mmol/L Anion Gap 10 L (12-20) BUN 12 (9-16) mg/dL Creatinine 1.62 H (0.5-1.4) mg/dL Estim Creat Clear Calc 29.8 Estimated GFR 31 Random Glucose 127 H (60-115) mg/dL Calcium 8.8 (8.4-10.2) mg/dL Magnesium 2.2 (1.6-2.6) mg/dL Total Bilirubin 0.8 (0.0-1.0) mg/dL Direct Bilirubin 0.2 (0.0-0.5) mg/dL AST 9 (5-31) U/L ALT 8 (0-31) U/L Alkaline Phosphatase 112 (39-117) U/L Total Protein 7.1 (6.5-8.0) g/dL Albumin 3.8 (3.5-5.0) g/dL Lipase 9 (8-78) U/L Urine Color Yellow Urine Appearance Turbid Urine pH 6.5 (5.0-9.0) Ur Specific [place] 1.015 (1.005-1.025) Urine Protein 300 (3+) H (Neg-Trace) mg/dL Urine Glucose (UA) Negative (Negative) mg/dL Urine Ketones Trace (Negative) mg/dL Urine Blood Trace H (Negative) Urine Nitrite Positive H (Negative) Ur Leukocyte Esterase Moderate (2+) H (Negative) Urine RBC 0-2 (0-2) /HPF Urine WBC >50 H (0-5) /HPF Ur Squamous Epith Cells >20 (0-2) /HPF Urine Bacteria 4+ (None Seen) Hyaline Casts 0-2 (0-2) /LPF <BON Neely - Last Filed: 10/11/22 10:59> Lab Results 10/07/22 10/07/22 10/07/22 Range/Units 11:56 11:56 12:32 WBC 4.8 (4.8-10.8) X10*3/uL RBC 4.00 L (4.20-5.50) X10*6/uL Hgb 11.9 L (12.0-16.0) g/dl Hct 37.2 (37.0-47.0) % MCV 93.0 (80.0-98.0) fL MCH 29.8 (27.0-33.0) pg MCHC 32.0 (31.0-35.0) g/dl RDW 14.5 (11.0-16.0) % Plt Count 228 (160-400) X10*3/uL MPV 10.8 (9.4-12.3) fL Immature Gran % (Auto) 0.4 (0.0-0.4) % Neut % (Auto) 62.0 (45-73) % Lymph % (Auto) 23.8 (20-40) % [place] % (Auto) 8.8 (2-11) % Eos % (Auto) 4.0 (0-4) % Baso % (Auto) 1.0 (0-2) % Lymph # (Auto) 1.1 L (1.2-4.9) X10*3/uL [place] # (Auto) 0.4 (0.1-1.2) X10*3/uL Eos # (Auto) 0.2 (0.0-0.4) X10*3/uL Baso # (Auto) 0.1 (0.0-0.2) X10*3/uL Abs Immat Gran (auto) 0.02 (0.00-0.03) X10*3/uL Absolute Neuts (auto) 3.0 (2.0-8.3) x10*3/uL Absolute Nucleated RBC 0.000 (0.0-0.012) X10*3/uL Nucleated RBC % (auto) 0.0 (0.0-0.2) /100WBC Sodium 143 (135-145) mmol/L Potassium 4.4 (3.3-5.1) mmol/L Chloride 108 (96-108) mmol/L Carbon Dioxide 29 (22-29) mmol/L Anion Gap 10 L (12-20) BUN 12 (9-16) mg/dL Creatinine 1.62 H (0.5-1.4) mg/dL Estim Creat Clear Calc 29.8 Estimated GFR 31 Random Glucose 127 H (60-115) mg/dL Calcium 8.8 (8.4-10.2) mg/dL Magnesium 2.2 (1.6-2.6) mg/dL Total Bilirubin 0.8 (0.0-1.0) mg/dL Direct Bilirubin 0.2 (0.0-0.5) mg/dL AST 9 (5-31) U/L ALT 8 (0-31) U/L Alkaline Phosphatase 112 (39-117) U/L Total Protein 7.1 (6.5-8.0) g/dL Albumin 3.8 (3.5-5.0) g/dL Lipase 9 (8-78) U/L Urine Color Yellow Urine Appearance Turbid Urine pH 6.5 (5.0-9.0) Ur Specific [place] 1.015 (1.005-1.025) Urine Protein 300 (3+) H (Neg-Trace) mg/dL Urine Glucose (UA) Negative (Negative) mg/dL Urine Ketones Trace (Negative) mg/dL Urine Blood Trace H (Negative) Urine Nitrite Positive H (Negative) Ur Leukocyte Esterase Moderate (2+) H (Negative) Urine RBC 0-2 (0-2) /HPF Urine WBC >50 H (0-5) /HPF Ur Squamous Epith Cells >20 (0-2) /HPF Urine Bacteria 4+ (None Seen) Hyaline Casts 0-2 (0-2) /LPF <Jovan Simons MD - Last Filed: 10/07/22 14:01> Independent Interpretation I performed an independent interpretation of an: Ultrasound (bedside ultrasound revealed collapsed bladder) <Jovan Smions MD - Last Filed: 10/07/22 14:01> Tests considered The following testing was considered but not selected: Considered obtaining CT of abdomen but the abdomen was soft, no fever or WBC elevation, and urine revealed a UTI <Jovan Simons MD - Last Filed: 10/07/22 14:01> Discharge Plan Discharge Clinical Impression: Urinary tract infection <BON Neely - Last Filed: 10/11/22 10:59> Patient Disposition: Home, Self-Care <BON Neely - Last Filed: 10/11/22 10:59> Instructions: Urinary Tract Infection in Women (DC) <BON Neely - Last Filed: 10/11/22 10:59> Prescriptions: New cephalexin 500 mg capsule 500 mg PO Q6H 7 Days Qty: 28 0RF No Action cephalexin [Keflex] 500 mg capsule 500 mg PO QID Qty: 40 0RF omeprazole 20 mg capsule,delayed release(DR/EC) 20 mg PO BID Qty: 30 0RF ondansetron HCl [Zofran] 4 mg tablet 4 mg PO Q8H PRN (Reason: nausea and vomiting) Qty: 10 0RF polymyxin B sulf-trimethoprim [Polytrim] 10,000 unit- 1 mg/mL drops 1 drp ophthalmic (eye) QID 7 Days Qty: 10 0RF Rx Instructions: while awake; do not exceed 6 doses in 24 hours <BON Neely - Last Filed: 10/11/22 10:59> Referrals: Berlin Raymundo MD [Primary Care Provider] - 5 days <BON Neely - Last Filed: 10/11/22 10:59> Interventions: ED Discharge Assessment Last Done: 10/07/22 14:36 <BON Neely - Last Filed: 10/11/22 10:59> Discharge Date/Time: 10/07/22 14:37 <BON Neely - Last Filed: 10/11/22 10:59>
--- NOTE | 2022-10-07 11:37 | ECG_ITS ---
Test Reason : epigastric pain Blood Pressure : / mmHG Vent. Rate : 069 BPM Atrial Rate : 069 BPM P-R Int : 180 ms QRS Dur : 138 ms QT Int : 436 ms P-R-T Axes : 025 000 103 degrees QTc Int : 467 ms Normal sinus rhythm Left bundle branch block Abnormal ECG When compared with ECG of 22-AUG-2020 07:42, No significant change was found Referred By: Mari Her Electronically Signed By:COLUMBA ASIF MD
[2022-10-07 12:01] LABS: MANUAL DIFF FLAG NO
[2022-10-07 12:02] LABS: Basophils Absolute Auto 0.1 X10*3/uL (0.0-0.2); Eosinophils Absolute Auto 0.2 X10*3/uL (0.0-0.4); Hematocrit 37.2 % (37.0-47.0); Hemoglobin 11.9 g/dl (12.0-16.0); Imm Gran Abs Auto 0.02 X10*3/uL (0.00-0.03); Imm Gran Pct Auto 0.4 % (0.0-0.4); Lymphocytes Absolute Auto 1.1 X10*3/uL (1.2-4.9); Lymphocytes Percent Auto 23.8 % (20-40); Mean Corpuscular Hemoglobin 29.8 pg (27.0-33.0); Mean Platelet Volume 10.8 fL (9.4-12.3); Monocytes Absolute Auto 0.4 X10*3/uL (0.1-1.2); Monocytes Percent Auto 8.8 % (2-11); Platelet Count 228 X10*3/uL (160-400); Red Cell Distribution Width 14.5 % (11.0-16.0); White Blood Count 4.8 X10*3/uL (4.8-10.8)
[2022-10-07 12:26] LABS: Alanine Aminotransferase 8 U/L (0-31); Albumin Level 3.8 g/dL (3.5-5.0); Alkaline Phosphatase 112 U/L (39-117); Anion Gap 10 (12-20); Aspartate Amino Transferase 9 U/L (5-31); Bilirubin Direct 0.2 mg/dL (0.0-0.5); Bilirubin Total 0.8 mg/dL (0.0-1.0); Blood Urea Nitrogen 12 mg/dL (9-16); Calcium 8.8 mg/dL (8.4-10.2); Carbon Dioxide 29 mmol/L (22-29); Chloride 108 mmol/L (96-108); Creatinine Clr Calc Pharmacy 29.8; Estimated Glomerular Filt Rate 31; Glucose Random 127 mg/dL (60-115); Lipase 9 U/L (8-78); Magnesium 2.2 mg/dL (1.6-2.6); Potassium 4.4 mmol/L (3.3-5.1); Sodium 143 mmol/L (135-145); Total Protein 7.1 g/dL (6.5-8.0)
[2022-10-07 12:43] LABS: Appearance Urine Turbid; Color Urine Yellow; Glucose Urine UA Negative (Negative); Leukocyte Esterase Urine Moderate (2+) (Negative); Nitrite Urine Positive (Negative); PH 6.5 (5.0-9.0); Specific Gravity - Urine 1.015 (1.005-1.025); UMIC TRIGGER UACC YES; Urine Blood Trace (Negative); Urine Ketones Trace mg/dL (Negative); Urine Protein 300 (3+) mg/dL (Neg-Trace)
[2022-10-07 13:06] LABS: Bacteria Urine 4+ (None Seen); Hyaline Casts Urine 0-2 /LPF (0-2); RBC Urine 0-2 /HPF (0-2); Squamous Epithelial Cell Urine >20 /HPF (0-2); UACC Culture Trigger YES; WBC Urine >50 /HPF (0-5)
[2022-10-07] MEDS: cefTRIAXone sodium 1 GM in 0.9 % Sodium Chloride 50 ML IV (13:31)
[2022-10-07] MEDS: 0.9 % Sodium Chloride 250 ML 999 ML IV (13:31)
== END 2022-10-07 14:37 | disposition home or self-care (01) ==
PROVIDERS: Physician Assistant; Emergency Provider Emergency Medicine; PCP Internal Medicine
DX: N39.0 Urinary tract infection, site not specified (principal); R10.13 Epigastric pain; R94.31 Abnormal electrocardiogram [ECG] [EKG]; Z79.899 Other long term (current) drug therapy
CPT/HCPCS: 36415; 51798; 80048; 80076; 81001; 83690; 83735; 85025; 87086; 87088; 87186; 93005; 96374; 99284; J0696

== ENCOUNTER 2022-10-11 13:31 | Outpatient (REF) | payer MEDICARE, OTHER, SELFPAY | END 2022-10-11 13:32 | disposition home or self-care (01) | LOC: HO.LNP 13:31 | PROVIDERS: Visit Provider Physician Assistant | DX: N39.0 Urinary tract infection, site not specified (principal) | CPT/HCPCS: 87086 ==

== ENCOUNTER 2022-10-17 08:15 | Inpatient (IN) | payer MEDICARE, SELFPAY ==
[2022-10-17] VITALS (19 sets, daily range): BP systolic 117–185; BP diastolic 45–95; PULSE 50–107; RESP 12–24; TEMP 35.1–37.9; O2SAT 90–98; BMI 38.7
--- NOTE | ~2022-10-17 | XR_ITS ---
EXAMINATION: XR CHEST CLINICAL INFORMATION: CHF COMPARISON: Previous chest x-ray from yesterday TECHNIQUE: Frontal view of the chest was obtained. FINDINGS: The cardiac silhouette is enlarged but stable. There is pulmonary venous redistribution, bibasilar perihilar airspace disease and small bilateral pleural effusions. Findings are consistent with CHF. This is slightly increased from yesterday's exam. There are degenerative changes of the spine. XR/XR chest 1V IMPRESSION: CHF slightly increased from yesterday's exam.
--- NOTE | ~2022-10-17 | NM_ITS ---
EXAMINATION: NM LUNG IMAGE PERFUSION CLINICAL INFORMATION: Rule out PE. Hypoxia and elevated d-dimer COMPARISON: None available. TECHNIQUE: Following intravenous administration of 4 mCi of 99m Tc MAA, limited images through the chest were obtained. During the exam patient's O2 sats dropped in patient extremely short of breath. Exam was terminated and patient was rushed back to ER. Ventilation study was not performed. FINDINGS: A limited perfusion imaging there is normal flow seen to all segments of the both lungs without any segmental or nonsegmental perfusion defect. NM/NM pul perfusion IMPRESSION: Limited exam but no perfusion defects seen.
--- NOTE | ~2022-10-17 | XR_ITS ---
EXAMINATION: XR ABDOMEN KUB CLINICAL INDICATION: Abdominal pain. COMPARISON: Abdominal MRI dated 08/28/2020. TECHNIQUE: AP view of the abdomen. FINDINGS: There is a nonobstructive bowel gas pattern. Mild to moderate stool seen within the colon distally to the rectum. A Chan catheter is noted in place. Mild to moderate multilevel degenerative changes are seen in the thoracolumbar spine. Fusion hardware at L4-L5 appears intact without abnormality. XR/XR KUB IMPRESSION: 1. Nonobstructive bowel gas pattern. 2. Mild to moderate colonic stool burden.
--- NOTE | ~2022-10-17 | FL_ITS ---
EXAMINATION: XR BARIUM SWALLOW CLINICAL INFORMATION: Dysphagia. Globus sensation. COMPARISON: 09/05/2019 TECHNIQUE: Modified barium swallow with speech pathologist. FINDINGS: Patient swallowed multiple consistencies including a thin liquid. No nasopharyngeal reflux or tracheal aspiration was identified. No laryngeal penetration. FLUOROSCOPY TIME: 0.5 minutes DOSE AREA PRODUCT: 0.474 Gy-cm2 (fox-centimeter squared) FL/FL barium swallow modified IMPRESSION: No significant abnormality identified. Please refer to speech pathologist's report for details.
--- NOTE | ~2022-10-17 | US_ITS ---
EXAMINATION: US ABDOMEN LIMITED CLINICAL INFORMATION: Severe abdominal pain. COMPARISON: CT of the abdomen and pelvis from earlier the same day, MR of the abdomen August 2020 and ultrasound of the abdomen July 2020 TECHNIQUE: Real-time imaging of the right upper quadrant abdominal viscera. Doppler evaluation of the main portal vein. FINDINGS: PANCREAS: Normal. LIVER: Normal. The liver is normal in size. The liver contour is normal. Parenchymal echogenicity is normal. No focal hepatic lesion. There is no intrahepatic biliary duct dilatation seen. The main portal vein is patent with appropriate hepatopedal flow GALLBLADDER: Surgically removed COMMON BILE DUCT: Normal in caliber measuring 0.8 cm in diameter. RIGHT KIDNEY: Normal. No hydronephrosis. No renal calculi or focal parenchymal lesions. The kidney measures 11.3 cm in maximum dimension. FREE FLUID: None. US/US abdomen limited IMPRESSION: Unremarkable right upper quadrant ultrasound. The main portal vein is patent with appropriate hepatopedal flow
--- NOTE | ~2022-10-17 | XR_ITS ---
EXAMINATION: XR CHEST CLINICAL INFORMATION: Shortness of breath COMPARISON: Previous chest x-ray from yesterday TECHNIQUE: Frontal view of the chest was obtained. FINDINGS: The cardiac silhouette is enlarged. There is pulmonary venous redistribution. There may be airspace disease at the left lung base. There is no significant pleural effusion. There is no pneumothorax. There are degenerative changes of the spine. XR/XR chest 1V IMPRESSION: Enlarged cardiac silhouette and pulmonary venous redistribution. Question left base airspace disease. Differential would include asymmetric distribution of pulmonary edema and pneumonia.
--- NOTE | ~2022-10-17 | XR_ITS ---
EXAMINATION: XR HIP, RIGHT CLINICAL INFORMATION: Pain. COMPARISON: No similar priors. TECHNIQUE: Two views of the right hip. FINDINGS: No acute fractures or subluxation. 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 Scattered atherosclerotic disease. Chan catheter noted. XR/XR hip RT min 2V IMPRESSION: No acute fractures or subluxation. 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
--- NOTE | ~2022-10-17 | CT_ITS ---
EXAMINATION: CT CHEST without contrast., CT of the ABDOMEN AND PELVIS WITHOUT CONTRAST CLINICAL INFORMATION: Abdominal pain. Shortness of breath. COMPARISON: Chest x-ray 10/20/2022. MR abdomen 08/28/2020 TECHNIQUE: Multidetector volumetric CT imaging of the chest, abdomen and pelvis was obtained without intravenous or oral contrast. Coronal and sagittal reformatted images are performed at CT scanner [This CT examination was performed using dose optimization techniques as appropriate, variously including the following: *Automated exposure control *Adjustment of mA and/or kV according to patient size (this includes techniques or standardized protocols for targeted exams where dose is matched to indication/reason for exam; i.e. extremities or head) *Use of iterative reconstruction technique] DLP: 858 mGy-cm. FINDINGS: CT CHEST: Lungs: Bibasilar airspace opacities with air bronchograms. Small calcified granuloma posterior left upper lobe. No suspicious lung nodule. Mediastinum: No mediastinal mass or significant lymphadenopathy. Heart size is normal. Moderate volume of coronary calcification. Vascular calcifications of aorta and origin of great vessels. There is no aneurysm. Thyroid is unremarkable. Pleura: There is no pleural effusion. No pleural mass or thickening. Axilla: No lymphadenopathy. CT ABDOMEN AND PELVIS: Liver, Gallbladder and Biliary Tree: The liver is normal in size, shape, and attenuation. No focal hepatic lesion or biliary ductal dilatation is present. The gallbladder is unremarkable with no evidence of radiopaque gallstones, gallbladder wall thickening, or obvious pericholecystic inflammatory changes. Pancreas: No acute change of the pancreas. No mass. No pancreatic duct dilatation. Spleen: Spleen normal in size and contour. No focal lesion. Small calcified granuloma within the spleen. Adrenal Glands: Adrenal glands are normal in size. No focal mass. Kidneys and Ureters: 1.2 cm hyperdense lesion upper pole right kidney. Coronal image 54/111 series 5. This is not apparent on the prior MR or ultrasound exam of 2020. This is likely a proteinaceous or hemorrhagic cyst. 1 mm calcification upper pole left kidney may be a nonobstructive stone versus vascular calcification. No hydronephrosis. No hydroureter. Bladder: Chan catheter within the bladder. Bladder is empty. Gastrointestinal Tract: Numerous diverticula of the sigmoid colon. Focal bowel wall thickening and pericolonic edema at the proximal sigmoid colon suggestive of a mild diverticulitis. No perforation or abscess. No bowel obstruction. Moderate volume of stool in the colon. The appendix is nonvisualized. Mesentery: No focal inflammation. No free fluid. No free air. Abdominal Wall: No significant hernia is appreciated. Lymph Nodes: Normal. Vascular: Atherosclerotic vascular calcifications of the abdomen and pelvis. There is no aneurysm. Pelvic Viscera: Unremarkable. Osseous Structures: Multilevel degenerative spondylosis spine. Orthopedic staple at the posterior elements L4-L5. CT/CT abdomen pelvis wo IV con IMPRESSION: CT CHEST: Bibasilar airspace opacities. CT ABDOMEN PELVIS: 1. Mild diverticulitis of the sigmoid colon. 2. Chan catheter within the bladder.
--- NOTE | ~2022-10-17 | XR_ITS ---
EXAMINATION: XR CHEST CLINICAL INFORMATION: Chest pain, dyspnea and hypoxia. COMPARISON: 03/01/2019 TECHNIQUE: Frontal view of the chest was obtained. FINDINGS: Cardiac leads overlie the chest. Lung volumes are low. Small pleural effusions with hazy basilar opacities. Central vascular prominence. No significant interstitial change. No pneumothorax. The cardiomediastinal silhouette is prominent, unchanged. XR/XR chest 1V IMPRESSION: Small pleural effusions with hazy basilar opacities. Central vascular prominence without significant interstitial change.
--- NOTE | ~2022-10-17 | XR_ITS ---
EXAMINATION: XR CHEST CLINICAL INFORMATION: Hypoxia COMPARISON: 10/17/2022 TECHNIQUE: Frontal view of the chest was obtained. FINDINGS: Lung volumes are low. Bibasilar opacities appear to correspond atelectasis. Possible trace left pleural effusion. No pneumothorax. Cardiac silhouette remains enlarged, unchanged. Mild pulmonary venous congestion. No appreciable pulmonary edema. Degenerative spondylosis in the thoracic spine. No acute osseous findings. XR/XR chest 1V IMPRESSION: Low lung volumes with bibasilar atelectasis and possible trace left pleural effusion, unchanged. Superimposed consolidation cannot be excluded. Enlarged cardiac silhouette with pulmonary venous congestion. No appreciable pulmonary edema.
--- NOTE | 2022-10-17 08:28 | ECG_ITS ---
Test Reason : sob Blood Pressure : / mmHG Vent. Rate : 083 BPM Atrial Rate : 087 BPM P-R Int : 000 ms QRS Dur : 134 ms QT Int : 390 ms P-R-T Axes : 000 000 161 degrees QTc Int : 458 ms Normal sinus rhythm with frequent Premature atrial complexes Left bundle branch block Abnormal ECG When compared with ECG of 07-OCT-2022 11:49, Premature atrial complexes present Referred By: Dex Gan Electronically Signed By:SOPHIE BERNARD
--- NOTE | 2022-10-17 08:48 | ED.SOB ---
HPI - SOB/Dyspnea General Chief Complaint: Weakness Stated Complaint: Weakness, diarrhea, SOB per EMS Time Seen by Provider: 10/17/22 08:17 Source: patient and EMS Mode of arrival: EMS Limitations: no limitations History of Present Illness HPI Narrative: 77-year-old female who presents emergency department for evaluation of shortness of breath. The patient states she has been sick for approximately 1 week. She states she has felt hot and cold believes that she had a fever at home. She has noted rhinorrhea but no cough. She states she feels like she has a sore throat and occasionally she feels like her throat is closing. She feels short of breath and has been having dyspnea on exertion. She had nausea with no vomiting. She states that her shortness of breath was getting worse therefore she called an ambulance. [employer] vital signs revealed an elevated blood pressure of 149/51, elevated heart rate 107, elevated respiratory of 24. Patient's O2 saturation was 91% on room air. In the emergency department the patient's O2 saturation dropped to 86% on room air. Patient was initially placed on oxygen via nasal cannula then changed to an OxyMask. The patient was seen in the emergency department on 10/07/2022 for urinary tract infection. She did grow E coli greater than 100,000 colony-forming units which was pansensitive. She was started on Keflex. She was then seen at the urgent care clinic on 10/11/2022 for difficulty opening her eyes and eye swelling. Unclear if these findings were acute but she was diagnosed with a possible allergic reaction and her Keflex. Urinalysis was negative, Keflex was stopped and she was not restarted on antibiotics. Urine culture from 10/11/2022 grew no significant organisms. Related Data Home Medications Medication Instructions Recorded Confirmed amlodipine 10 mg tablet 10 mg PO DAILY 10/11/22 10/17/22 gabapentin 400 mg capsule 400 mg PO TID 10/11/22 10/17/22 glimepiride 4 mg tablet 4 mg PO DAILY 10/11/22 10/17/22 levothyroxine 50 mcg tablet 50 mcg PO DAILY 10/11/22 10/17/22 metoprolol succinate 25 mg 25 mg PO DAILY 10/11/22 10/17/22 tablet,extended release 24 hr oxycodone 10 mg tablet 10 mg PO QID PRN Pain (Scale Score 10/11/22 10/17/22 4-6) pioglitazone 30 mg tablet 30 mg PO DAILY 10/11/22 10/17/22 torsemide 20 mg tablet 40 mg PO BID 10/11/22 10/17/22 diphenhydramine HCl 25 mg capsule 25 mg DAILY PRN Allergic Symptoms 10/17/22 10/17/22 (Benadryl) prednisone 10 mg tablet See Taper PO DAILY 10/17/22 10/17/22 Previous Rx's Medication Instructions Recorded omeprazole 20 mg capsule,delayed 20 mg PO BID #30 caps 08/22/20 release Allergies Allergy/AdvReac Type Severity Reaction Status Date / Time levofloxacin [From LEVAQUIN] AdvReac Mild flushed Verified 10/11/22 11:12 Review of Systems Review of Systems: Yes all other systems are reviewed and are negative [facility] Past Medical History [facility] Narrative: Social history: The patient does live with her brother and sister. She denies tobacco, alcohol and drug use. Medical History (Updated 10/17/22 @ 16:13 by BON Barber) CKD (chronic kidney disease), stage IV Diabetes Diastolic CHF HTN (hypertension) Spinal stenosis Thyroid activity decreased Family History Family History (Updated 10/17/22 @ 16:13 by BON Braber) Other Diabetes Social History Social History Alcohol intake: never Patient Tobacco Use Status: Never used Tobacco Smoked in Last 30 Days: No Second Hand Smoke Exposure: No Use of substances other than those prescribed or required for medical reasons: No Advance Directives: Yes Advance Directives on File: Yes Advance Directives Date on File: 08/22/20 Physical Exam Vital Signs: Vital Signs: Last Vital Signs Temp 99.9 F 10/17/22 16:35 Pulse 76 10/17/22 16:35 Resp 14 10/17/22 16:35 BP 151/57 H 10/17/22 16:11 Pulse Ox 98 10/17/22 16:35 O2 Del Method Oxymask 10/17/22 16:35 O2 Flow Rate 5 10/17/22 16:35 Oxygen Flow Rate 4 10/17/22 08:24 BMI result Body Mass Index 38.7 Const: Other: Awake, alert, female patient, appears anxious, does not appear to be in distress HEENT: Head: Yes normal to inspection, Yes normocephalic and Yes atraumatic Ears: external ears normal General nose exam: Normal external nose present Face and sinus: Yes normal facial exam Mouth: Normal oral and palatal mucosa present Throat: Yes posterior oropharynx normal Eyes: General: appearance normal, both eyes and all related structures Pupils: Equal, round and reactive pupils present Neck: Neck: Yes normal visual inspection, Yes no lymphadenopathy, Yes trachea midline and Yes supple Chest: Chest palpation & inspection: normal inspection of the chest and normal palpation of entire chest wall Resp: Effort & Inspection: normal respiratory effort and able to speak in complete sentences Auscultation: clear to auscultation bilaterally Cardio: Rate: regular rate Rhythm: regular rhythm Heart sounds: S1 normal heart sound present, S2 normal heart sound present and no murmurs GI: Inspection: Yes normal to inspection Palpation (GI): Soft to palpation, nontender and no guarding Auscultation: normal bowel sounds : General: Yes no CVA tenderness Back/Spine/Pelvis: Back: no CVA tenderness Skin: General skin exam: no rashes or lesions noted Neuro: Cranial nerves: Yes CN's II-XII intact bilaterally and Yes Equal, round and reactive pupils present Cognition (Neuro): normal cognition Motor exam (neuro): 5/5 motor strength present throughout Extrem: General: Yes normal to inspection Psych: Appearance: grossly normal Speech and movement: Normal speech and movement present Affect: Anxious affect present Attitude: cooperative Thought content: Normal thought content present Medications Administered Generic Name Dose Route Start Last Admin Trade Name Freq PRN Reason Stop Dose Admin Sodium Chloride 3 ml 10/17/22 16:00 10/17/22 16:18 0.9 % Sodium Chloride Flush 3 Ml Syringe IVFLUSH 3 ml QSHIFT YADY Administration Discontinued Medications Generic Name Dose Route Start Last Admin Trade Name Freq PRN Reason Stop Dose Admin Bumetanide 1 mg 10/17/22 11:09 10/17/22 11:28 Bumetanide 1 Mg/4 Ml Vial IVPUSH 10/17/22 11:10 1 mg ONCE ONE Administration Protocol Lactated Ringer's 1,000 mls @ 999 mls/hr 10/17/22 08:30 10/17/22 11:32 Lr IV 10/17/22 09:30 Infused .Q1H1M YADY Infusion Ceftriaxone Sodium 1 gm/ 50 mls @ 100 mls/hr 10/17/22 09:09 10/17/22 10:21 Sodium Chloride IV 10/17/22 09:38 Infused ONCE ONE Infusion Azithromycin 500 mg/ Sodium 250 mls @ 125 mls/hr 10/17/22 09:09 10/17/22 12:01 Chloride IV 10/17/22 11:08 Infused ONCE ONE Infusion Ketorolac Tromethamine 15 mg 10/17/22 08:28 10/17/22 08:49 Ketorolac Tromethamine 15 Mg/Ml Vial IVPUSH 10/17/22 08:29 15 mg ONCE STA Administration Ondansetron HCl 4 mg 10/17/22 08:28 10/17/22 08:49 Ondansetron Hcl 4 Mg/2 Ml Vial IVPUSH 10/17/22 08:29 4 mg ONCE ONE Administration Medical Decision Making Medical Decision Making MDM Narrative: 77-year-old female who presents emergency department for evaluation of feeling sick for approximately 1 week with intermittent diarrhea, subjective fever, rhinorrhea, sore throat shortness of breath nausea with no vomiting. Patient was seen in the emergency department for 04/2023 diagnosed with UTI in grew E coli, she was treated with Keflex but was seen in the urgent care clinic on 10/11/2022 for possible allergic reaction-she states that she was having difficulty opening her eyes and had prior eyes open to see. Her Keflex was stopped for possible allergic reaction. She had a repeat urinalysis which is negative and repeat urine culture was negative. Given her description of her symptoms I do not think that she had allergic reaction. The patient was found to be hypoxic here in the emergency department and on a Venti mask her O2 saturations 91%. Her lung exam however is clear. She has trace pitting edema bilaterally symmetric. I did order laboratory evaluation to include CBC, CMP, BNP, lipase, lactic acid, PT/INR, PTT, D-dimer, influenza, COVID-19, C diff, GI panel, blood cultures x2. Patient was complaining of throat and right hip pain and was given Toradol 15 mg IV and Zofran 4 mg IV for her nausea. 0914: Patient's WBC count was elevated 16,800. Chest x-ray revealed blurring of the left diaphragm compared to the right which may be consistent with pneumonia. Patient was ordered to get a ceftriaxone 1 g IV and Zithromax 500 mg IV. 1001: My interpretation patient's laboratory evaluation as follows: WBC elevated 16,800, anemia with an H&H of 10.4 and 32-chronic. D-dimer elevated 373. BUN creatinine elevated above baseline 60 and 2.96. BNP elevated 246. Urinalysis negative. COVID and influenza negative. Lactic acid normal 1.1. Patient's elevated BUN creatinine suggests that she is pre renal therefore I did order lactated Ringer's x1 L. my impression is that the patient has pneumonia and cardiomegaly however elevated D-dimer is concerning and I will order a V/Q scan to rule out PE. I did discuss the patient over tiger text with the covering hospitalist, Dr. Crocker. 1100: The patient was at nuclear medicine and received her injection, according to nursing she was lying down and became short of breath and unresponsive, her O2 saturation dropped 72% on OxyMask at 5 L. her oxygen was increased to 15 L and she was brought back to the emergency department. On 15 L in the OxyMask her O2 saturation is now 90%. I did discuss patient's presentation with the digital performance analyst, Dr. Handley. Given her orthopnea with worsening hypoxia he felt the patient most likely had pulmonary edema. He recommended Bumex 1 mg IV. I will stop the patient has IV fluids as well. An ABG will be obtained at the patient's retaining CO2 and we will place her on CPAP. 1703: Patient was evaluated by the intensive who recommended the patient be admitted to the hospital service. I did discuss patient's presentation with Dr. Crocker. The patient was kept in the emergency department on CPAP and she improved. She is currently on an OxyMask 5 L, she is resting comfortably. She has diuresed approximately 500 cc of urine. Differential Diagnosis Differential diagnosis includes but is not limited to pneumonia, congestive heart failure, pulmonary embolism, bronchitis, urinary tract infection Consult Healthcare Provider Management of the patient was discussed with: Hospitalist Lab Data [facility] Lab Attestation statement: I reviewed the patient's lab results. Please see LEORA 10/17/22 08:45 10/17/22 08:45 Labs: Lab Results 10/17/22 10/17/22 10/17/22 Range/Units 08:45 08:45 08:45 WBC 16.8 H (4.8-10.8) X10*3/uL RBC 3.49 L (4.20-5.50) X10*6/uL Hgb 10.4 L (12.0-16.0) g/dl Hct 32.0 L (37.0-47.0) % MCV 91.7 (80.0-98.0) fL MCH 29.8 (27.0-33.0) pg MCHC 32.5 (31.0-35.0) g/dl RDW 15.0 (11.0-16.0) % Plt Count 185 (160-400) X10*3/uL MPV 11.5 (9.4-12.3) fL Immature Gran % (Auto) 0.8 H (0.0-0.4) % Neut % (Auto) 80.2 H (45-73) % Lymph % (Auto) 11.7 L (20-40) % Mccracken % (Auto) 6.6 (2-11) % Eos % (Auto) 0.5 (0-4) % Baso % (Auto) 0.2 (0-2) % Lymph # (Auto) 2.0 (1.2-4.9) X10*3/uL Mccracken # (Auto) 1.1 (0.1-1.2) X10*3/uL Eos # (Auto) 0.1 (0.0-0.4) X10*3/uL Baso # (Auto) 0.0 (0.0-0.2) X10*3/uL Abs Immat Gran (auto) 0.13 H (0.00-0.03) X10*3/uL Absolute Neuts (auto) 13.5 H (2.0-8.3) x10*3/uL Absolute Nucleated RBC 0.000 (0.0-0.012) X10*3/uL Nucleated RBC % (auto) 0.0 (0.0-0.2) /100WBC PT 11.6 (10.0-13.1) SEC INR 1.0 (0.9-1.1) APTT 28.5 (26.0-36.4) SEC D-Dimer High Sensitivty 373 NG/ML O2 Saturation % ABG pH at Pt Temp (7.35-7.45) ABG pCO2 at Pt Temp (32-45) mmHg ABG pO2 at Pt Temp (83-108) mmHg ABG HCO3 (22-26) mmol/L ABG Base Excess (Actual) mmol/L Sodium 138 (135-145) mmol/L Potassium 5.1 (3.3-5.1) mmol/L Chloride 99 (96-108) mmol/L Carbon Dioxide 26 (22-29) mmol/L Anion Gap 18 (12-20) BUN 60 H (9-16) mg/dL Creatinine 2.96 H (0.5-1.4) mg/dL Estim Creat Clear Calc 16.4 Estimated GFR 15 Random Glucose 202 H (60-115) mg/dL Lactic Acid (0.5-2.0) mmol/L Calcium 7.9 L D (8.4-10.2) mg/dL Total Bilirubin 0.6 (0.0-1.0) mg/dL AST 16 (5-31) U/L ALT 10 (0-31) U/L Alkaline Phosphatase 119 H (39-117) U/L Troponin I High Sens (<3.5-17.0) ng/L B-Natriuretic Peptide (<100) pg/mL Total Protein 7.0 (6.5-8.0) g/dL Albumin 3.7 (3.5-5.0) g/dL Lipase 17 (8-78) U/L Procalcitonin 0.04 ng/mL TSH 0.59 (0.32-4.0) uIU/mL Urine Color Urine Appearance Urine pH (5.0-9.0) Ur Specific [place] (1.005-1.025) Urine Protein (Neg-Trace) mg/dL Urine Glucose (UA) (Negative) mg/dL Urine Ketones (Negative) mg/dL Urine Blood (Negative) Urine Nitrite (Negative) Ur Leukocyte Esterase (Negative) COVID-19 (IBRAHIMA) (Negative) COVID-19 Clin Com Influenza Type A (JAH) (Negative) Influenza Type B (JAH) (Negative) Influenza A & B Note 10/17/22 10/17/22 10/17/22 Range/Units 08:45 08:45 08:45 WBC (4.8-10.8) X10*3/uL RBC (4.20-5.50) X10*6/uL Hgb (12.0-16.0) g/dl Hct (37.0-47.0) % MCV (80.0-98.0) fL MCH (27.0-33.0) pg MCHC (31.0-35.0) g/dl RDW (11.0-16.0) % Plt Count (160-400) X10*3/uL MPV (9.4-12.3) fL Immature Gran % (Auto) (0.0-0.4) % Neut % (Auto) (45-73) % Lymph % (Auto) (20-40) % Mccracken % (Auto) (2-11) % Eos % (Auto) (0-4) % Baso % (Auto) (0-2) % Lymph # (Auto) (1.2-4.9) X10*3/uL Mccracken # (Auto) (0.1-1.2) X10*3/uL Eos # (Auto) (0.0-0.4) X10*3/uL Baso # (Auto) (0.0-0.2) X10*3/uL Abs Immat Gran (auto) (0.00-0.03) X10*3/uL Absolute Neuts (auto) (2.0-8.3) x10*3/uL Absolute Nucleated RBC (0.0-0.012) X10*3/uL Nucleated RBC % (auto) (0.0-0.2) /100WBC PT (10.0-13.1) SEC INR (0.9-1.1) APTT (26.0-36.4) SEC D-Dimer High Sensitivty NG/ML O2 Saturation % ABG pH at Pt Temp (7.35-7.45) ABG pCO2 at Pt Temp (32-45) mmHg ABG pO2 at Pt Temp (83-108) mmHg ABG HCO3 (22-26) mmol/L ABG Base Excess (Actual) mmol/L Sodium (135-145) mmol/L Potassium (3.3-5.1) mmol/L Chloride (96-108) mmol/L Carbon Dioxide (22-29) mmol/L Anion Gap (12-20) BUN (9-16) mg/dL Creatinine (0.5-1.4) mg/dL Estim Creat Clear Calc Estimated GFR Random Glucose (60-115) mg/dL Lactic Acid 1.1 (0.5-2.0) mmol/L Calcium (8.4-10.2) mg/dL Total Bilirubin (0.0-1.0) mg/dL AST (5-31) U/L ALT (0-31) U/L Alkaline Phosphatase (39-117) U/L Troponin I High Sens 11.5 (<3.5-17.0) ng/L B-Natriuretic Peptide 246 H (<100) pg/mL Total Protein (6.5-8.0) g/dL Albumin (3.5-5.0) g/dL Lipase (8-78) U/L Procalcitonin ng/mL TSH (0.32-4.0) uIU/mL Urine Color Urine Appearance Urine pH (5.0-9.0) Ur Specific [place] (1.005-1.025) Urine Protein (Neg-Trace) mg/dL Urine Glucose (UA) (Negative) mg/dL Urine Ketones (Negative) mg/dL Urine Blood (Negative) Urine Nitrite (Negative) Ur Leukocyte Esterase (Negative) COVID-19 (IBRAHIMA) (Negative) COVID-19 Clin Com Influenza Type A (JAH) (Negative) Influenza Type B (JAH) (Negative) Influenza A & B Note 10/17/22 10/17/22 10/17/22 Range/Units 08:45 08:45 09:21 WBC (4.8-10.8) X10*3/uL RBC (4.20-5.50) X10*6/uL Hgb (12.0-16.0) g/dl Hct (37.0-47.0) % MCV (80.0-98.0) fL MCH (27.0-33.0) pg MCHC (31.0-35.0) g/dl RDW (11.0-16.0) % Plt Count (160-400) X10*3/uL MPV (9.4-12.3) fL Immature Gran % (Auto) (0.0-0.4) % Neut % (Auto) (45-73) % Lymph % (Auto) (20-40) % Mccracken % (Auto) (2-11) % Eos % (Auto) (0-4) % Baso % (Auto) (0-2) % Lymph # (Auto) (1.2-4.9) X10*3/uL Mccracken # (Auto) (0.1-1.2) X10*3/uL Eos # (Auto) (0.0-0.4) X10*3/uL Baso # (Auto) (0.0-0.2) X10*3/uL Abs Immat Gran (auto) (0.00-0.03) X10*3/uL Absolute Neuts (auto) (2.0-8.3) x10*3/uL Absolute Nucleated RBC (0.0-0.012) X10*3/uL Nucleated RBC % (auto) (0.0-0.2) /100WBC PT (10.0-13.1) SEC INR (0.9-1.1) APTT (26.0-36.4) SEC D-Dimer High Sensitivty NG/ML O2 Saturation % ABG pH at Pt Temp (7.35-7.45) ABG pCO2 at Pt Temp (32-45) mmHg ABG pO2 at Pt Temp (83-108) mmHg ABG HCO3 (22-26) mmol/L ABG Base Excess (Actual) mmol/L Sodium (135-145) mmol/L Potassium (3.3-5.1) mmol/L Chloride (96-108) mmol/L Carbon Dioxide (22-29) mmol/L Anion Gap (12-20) BUN (9-16) mg/dL Creatinine (0.5-1.4) mg/dL Estim Creat Clear Calc Estimated GFR Random Glucose (60-115) mg/dL Lactic Acid (0.5-2.0) mmol/L Calcium (8.4-10.2) mg/dL Total Bilirubin (0.0-1.0) mg/dL AST (5-31) U/L ALT (0-31) U/L Alkaline Phosphatase (39-117) U/L Troponin I High Sens (<3.5-17.0) ng/L B-Natriuretic Peptide (<100) pg/mL Total Protein (6.5-8.0) g/dL Albumin (3.5-5.0) g/dL Lipase (8-78) U/L Procalcitonin ng/mL TSH (0.32-4.0) uIU/mL Urine Color Yellow Urine Appearance Clear Urine pH 5.5 (5.0-9.0) Ur Specific [place] 1.020 (1.005-1.025) Urine Protein Negative (Neg-Trace) mg/dL Urine Glucose (UA) Negative (Negative) mg/dL Urine Ketones Negative (Negative) mg/dL Urine Blood Negative (Negative) Urine Nitrite Negative (Negative) Ur Leukocyte Esterase Negative (Negative) COVID-19 (IBRAHIMA) Negative (Negative) COVID-19 Clin Com See Note Influenza Type A (JAH) Negative (Negative) Influenza Type B (JAH) Negative (Negative) Influenza A & B Note See Note 10/17/22 Range/Units 11:16 WBC (4.8-10.8) X10*3/uL RBC (4.20-5.50) X10*6/uL Hgb (12.0-16.0) g/dl Hct (37.0-47.0) % MCV (80.0-98.0) fL MCH (27.0-33.0) pg MCHC (31.0-35.0) g/dl RDW (11.0-16.0) % Plt Count (160-400) X10*3/uL MPV (9.4-12.3) fL Immature Gran % (Auto) (0.0-0.4) % Neut % (Auto) (45-73) % Lymph % (Auto) (20-40) % Mccracken % (Auto) (2-11) % Eos % (Auto) (0-4) % Baso % (Auto) (0-2) % Lymph # (Auto) (1.2-4.9) X10*3/uL Mccracken # (Auto) (0.1-1.2) X10*3/uL Eos # (Auto) (0.0-0.4) X10*3/uL Baso # (Auto) (0.0-0.2) X10*3/uL Abs Immat Gran (auto) (0.00-0.03) X10*3/uL Absolute Neuts (auto) (2.0-8.3) x10*3/uL Absolute Nucleated RBC (0.0-0.012) X10*3/uL Nucleated RBC % (auto) (0.0-0.2) /100WBC PT (10.0-13.1) SEC INR (0.9-1.1) APTT (26.0-36.4) SEC D-Dimer High Sensitivty NG/ML O2 Saturation 95.0 % ABG pH at Pt Temp 7.34 L (7.35-7.45) ABG pCO2 at Pt Temp 55 H (32-45) mmHg ABG pO2 at Pt Temp 78 L (83-108) mmHg ABG HCO3 29 H (22-26) mmol/L ABG Base Excess (Actual) 3.2 mmol/L Sodium (135-145) mmol/L Potassium (3.3-5.1) mmol/L Chloride (96-108) mmol/L Carbon Dioxide (22-29) mmol/L Anion Gap (12-20) BUN (9-16) mg/dL Creatinine (0.5-1.4) mg/dL Estim Creat Clear Calc Estimated GFR Random Glucose (60-115) mg/dL Lactic Acid (0.5-2.0) mmol/L Calcium (8.4-10.2) mg/dL Total Bilirubin (0.0-1.0) mg/dL AST (5-31) U/L ALT (0-31) U/L Alkaline Phosphatase (39-117) U/L Troponin I High Sens (<3.5-17.0) ng/L B-Natriuretic Peptide (<100) pg/mL Total Protein (6.5-8.0) g/dL Albumin (3.5-5.0) g/dL Lipase (8-78) U/L Procalcitonin ng/mL TSH (0.32-4.0) uIU/mL Urine Color Urine Appearance Urine pH (5.0-9.0) Ur Specific [place] (1.005-1.025) Urine Protein (Neg-Trace) mg/dL Urine Glucose (UA) (Negative) mg/dL Urine Ketones (Negative) mg/dL Urine Blood (Negative) Urine Nitrite (Negative) Ur Leukocyte Esterase (Negative) COVID-19 (IBRAHIMA) (Negative) COVID-19 Clin Com Influenza Type A (JAH) (Negative) Influenza Type B (JAH) (Negative) Influenza A & B Note Independent Interpretation I performed an independent interpretation of an: Plain X-Ray Interpretation: My impression of the patient's chest x-ray is left lower lobe infiltrate secondary to loss of diaphragm and cardiomegaly Radiology Impression Discussion of test interpretation with radiology: I have reviewed the radiologist's reading. Radiologist Impression: /XR chest 1V IMPRESSION: Small pleural effusions with hazy basilar opacities. Central vascular prominence without significant interstitial change. Dictated By:Kian Roberts MD Independent Historian Clinical information obtained from an independent historian. History obtained from or confirmed by: EMS External Record Review External record reviewed: Inpatient record Critical Care Time Critical Care Time Critical Care Time: Yes Total Critical Care Time: 80 Attestation: Critical Care: The patient was critically ill with a high probability of imminent or life threatening deterioration. I spent greater than 30 minutes of discontinuous time evaluating the patient,delivering critical care at the bedside, discussing and evaluating pertinent data with consultants. Critical care time does not include time spent performing separately billable procedures or teaching. Total time spent performing critical care was 80 minutes. Discharge Plan Discharge Clinical Impression: Pneumonia, Hypoxic, Acute kidney injury Patient Disposition: Admitted As Inpatient
[2022-10-17] MEDS: Ketorolac Tromethamine 15 MG/ML VIAL IVPUSH (08:49)
[2022-10-17] MEDS: ondansetron HCL 4 MG/2 ML VIAL IVPUSH (08:49)
[2022-10-17 08:54] LABS: Basophils Percent Auto 0.2 % (0-2); Eosinophils Absolute Auto 0.1 X10*3/uL (0.0-0.4); Eosinophils Percent Auto 0.5 % (0-4); Hemoglobin 10.4 g/dl (12.0-16.0); Imm Gran Abs Auto 0.13 X10*3/uL (0.00-0.03); Imm Gran Pct Auto 0.8 % (0.0-0.4); Lymphocytes Percent Auto 11.7 % (20-40); MANUAL DIFF FLAG NO; Mean Corpuscular HGB Conc 32.5 g/dl (31.0-35.0); Mean Corpuscular Hemoglobin 29.8 pg (27.0-33.0); Mean Corpuscular Volume 91.7 fL (80.0-98.0); Mean Platelet Volume 11.5 fL (9.4-12.3); Monocytes Absolute Auto 1.1 X10*3/uL (0.1-1.2); Monocytes Percent Auto 6.6 % (2-11); Neutrophils Absolute Auto 13.5 x10*3/uL (2.0-8.3); Neutrophils Percent Auto 80.2 % (45-73); Platelet Count 185 X10*3/uL (160-400); Red Blood Count 3.49 X10*6/uL (4.20-5.50); White Blood Count 16.8 X10*3/uL (4.8-10.8)
[2022-10-17 09:00] LABS: Prothrombin Time 11.6 SEC (10.0-13.1)
[2022-10-17 09:03] LABS: Partial Thromboplastin Time 28.5 SEC (26.0-36.4)
[2022-10-17 09:11] LABS: COVID-19 Test Negative (Negative); IDNOW Serial# BCCEAD1C; Lactic Acid 1.1 mmol/L (0.5-2.0)
[2022-10-17 09:13] LABS: IDNOW Serial# 08D9AD1C; Influenza A Negative (Negative); Influenza B2 Negative (Negative)
[2022-10-17 09:18] LABS: Troponin-I High Sensitivity 11.5 ng/L (<3.5-17.0)
[2022-10-17 09:19] LABS: B Type Natriuretic Peptide 246 pg/mL (<100); D Dimer High Sensitivity 373 NG/ML
[2022-10-17 09:22] LABS: Alanine Aminotransferase 10 U/L (0-31); Albumin Level 3.7 g/dL (3.5-5.0); Alkaline Phosphatase 119 U/L (39-117); Anion Gap 18 (12-20); Aspartate Amino Transferase 16 U/L (5-31); Bilirubin Total 0.6 mg/dL (0.0-1.0); Blood Urea Nitrogen 60 mg/dL (9-16); Calcium 7.9 mg/dL (8.4-10.2); Carbon Dioxide 26 mmol/L (22-29); Chloride 99 mmol/L (96-108); Creatinine Clr Calc Pharmacy 16.4; Estimated Glomerular Filt Rate 15; Glucose Random 202 mg/dL (60-115); Lipase 17 U/L (8-78); Potassium 5.1 mmol/L (3.3-5.1); Sodium 138 mmol/L (135-145)
[2022-10-17] MEDS: cefTRIAXone sodium 1 GM in 0.9 % Sodium Chloride 50 ML IV (09:22)
--- NOTE | 2022-10-17 09:24 | PC.NURSE ---
will hold order until BNP resulted given pt SOB, cough and hypoxia - MD Gan made aware and oK with plan
[2022-10-17 09:41] LABS: Appearance Urine Clear; Color Urine Yellow; Glucose Urine UA Negative (Negative); Leukocyte Esterase Urine Negative (Negative); Nitrite Urine Negative (Negative); PH 5.5 (5.0-9.0); Urine Blood Negative (Negative); Urine Ketones Negative (Negative); Urine Protein Negative (Neg-Trace)
[2022-10-17] MEDS: Azithromycin 500 MG in 0.9 % Sodium Chloride 250 ML 125 MG IV (09:41)
[2022-10-17] MEDS: Lactated Ringers 1,000 ML 999 ML IV (09:42)
--- NOTE | 2022-10-17 11:05 | PC.NURSE ---
pt brought over to [employer]. pt unable to tolerate being flat for the scans, was able to complete two of the 4 scans. pt desat to low 80s. increased O2 via oxymask to 15L, pt continued to desat,, at this time she reached 72%, I informed [employer] techs that the imaging needed to be discontinued and we needed to get her off the stable immediately. pt became unresponsive for a brief period of time. moved pt onto stretcher and sat her upright, pt regained consciousness, educated on slow deep breaths. moved pt back to the ER . once sitting upright pt began to stabilize, remaining on 15L oxymask pt SaO2 around 92%, increased work of breathing. MD devine informed of event and at bedside to evaluate pt.
[2022-10-17 11:26] LABS: ABG Base Excess 3.2 mmol/L; ABG HCO3 29 mmol/L (22-26); ABG pCO2 55 mmHg (32-45); ABG pH 7.34 (7.35-7.45); ABG pO2 78 mmHg (83-108)
[2022-10-17 11:26] LABS: ABG Refer to POC result
[2022-10-17] MEDS: Bumetanide 1 MG/4 ML VIAL IVPUSH (11:28)
--- NOTE | 2022-10-17 11:36 | PC.NURSE ---
pt received approx 200cc of LR before MD order to d/c fluid infusion
--- NOTE | 2022-10-17 11:44 | PHA.MEDREC ---
Pharmacy Consult ? Medication Reconciliation Pharmacy has completed the medication reconciliation. Pt came in with list of meds but is unable to answer questions at this time. I confirmed dosing on prednisone and date of warehouse order picker with pharmacy.
--- NOTE | 2022-10-17 11:46 | PC.NURSE ---
respiratory at bedside, pt changed from oxymask to cpap
--- NOTE | 2022-10-17 12:44 | PC.NURSE ---
20G in L forearm infiltrated. removed. no new line plced at this time. pt with functioning 20G in RAC. pt placed on a periwick.
--- NOTE | 2022-10-17 13:57 | PM.CCN ---
Critical Care Event Note Summary Date of Service: 10/17/22 Code activated: No Narrative: 77-year-old lady with underlying diastolic dysfunction, obesity, hypertension, diabetes mellitus, hypothyroidism being evaluated for admission for dyspnea and hypoxia which appear to be secondary to exacerbation of underlying chronic diastolic congestive heart failure, now with pulmonary edema, lower extremity edema, acute kidney injury likely secondary to poor forward flow perfusion with symptomatic improvement after administration of IV Bumex in the emergency room. Currently on my exam on CPAP of 12/ 40% with O2 sat of 99%, normal hemodynamics, awake and answering appropriately. Agree with further IV diuresis, appears to be able to be switched from CPAP down to high-flow or regular cannula. consider fully placement. At this time does not require intensive care level of services. Please notify for re-evaluation, if patient's condition changes. Critical Care Time (minutes): 0
--- NOTE | 2022-10-17 16:05 | P.HPHOSP_ITS ---
History of Present Illness Date of Service: 10/17/22 Attending physician on admission: Berlin Crocker Chief Complaint: shortness of breath this is a 77-year-old female with history of diastolic CHF, diabetes, hypertension who presents to the emergency department with shortness of breath. She states that her shortness of breath has been ongoing for greater than 1 week, stating possibly ongoing for over a month. Sometimes she notices worsening shortness of breath on ambulation and sometimes she notices it at night while she is sleeping. She denies any associated cough, fever, chills. She has intermittent lower extremity edema. She does report following a low- sodium diet but does not weigh herself on a daily basis. she denies any abdominal pain, chest pain. In the emergency department initially her oxygen saturation dropped to 86% on room air and she was placed on nasal cannula and then changed over to OxyMask. While in nuclear Medicine getting V/Q scan her oxygen saturation was noted to dip into the 70s at which point she briefly lost consciousness. When she was sat up her oxygen saturation improved and she woke up. ABG was obtained which showed elevated pCO2 of 55 at which time she was placed on BiPAP. She was given a dose of IV Bumex for probable pulmonary edema. She was seen and evaluated by asphalt tamper who switched her over to CPAP and felt she could safely be admitted to the medical floor. Chest x-ray shows small pleural effusions with hazy basilar opacities, central vascular prominence without significant interstitial change. Lab work significant for BNP of 246, leukocytosis of 16.8, creatinine of 2.96. Lactic acid negative. in addition to Bumex she received IV antibiotics for possibility of pneumonia. She will be admitted to the hospital for further management of acute respiratory failure. Review of Systems Review of Systems: Yes all other systems are reviewed and are negative Constitutional: Constitutional: Denies chills and Denies fever(s) Cardiovascular: Cardiovascular: Denies chest pain, Denies palpitations and Reports dyspnea Respiratory: Respiratory: Denies cough and Reports dyspnea Gastrointestinal: Gastrointestinal: Denies abdominal pain, Denies nausea and Denies vomiting Endocrine: Endocrine: Denies palpitations [facility] Medical History (Updated 10/17/22 @ 16:13 by BON Barber) CKD (chronic kidney disease), stage IV Diabetes Diastolic CHF HTN (hypertension) Spinal stenosis Thyroid activity decreased Family History (Updated 10/17/22 @ 16:13 by BON Barber) Other Diabetes Social History Alcohol intake: never Patient Tobacco Use Status: Never used Tobacco Second Hand Smoke Exposure: No Advance Directives Date on File: 08/22/20 Meds Allergies Allergy/AdvReac Type Severity Reaction Status Date / Time levofloxacin [From LEVAQUIN] AdvReac Mild flushed Verified 10/11/22 11:12 Active Medications: Current Medications Acetaminophen (Acetaminophen 325 Mg Tablet) 650 mg PO Q6H PRN PRN Reason: Pain, Mild (Pain Scale 1-3) Bumetanide (Bumetanide 1 Mg/4 Ml Vial) 1 mg IVPUSH BID@0900,1700 [facility]; Protocol Docusate Sodium (Docusate Sodium 100 Mg Capsule) 100 mg PO DAILY PRN PRN Reason: Constipation Heparin Sodium (Porcine) (Heparin Sodium,Porcine 5,000 Unit/Ml Vial) 5,000 unit SUBCUT Q12H [facility] Levothyroxine Sodium (Levothyroxine Sodium 50 Mcg Tablet) 50 mcg PO DAILY@0630 [facility] Metoprolol Succinate (Metoprolol Succinate Er 25 Mg Tab.Er.24h) 25 mg PO DAILY [facility]; Protocol Omeprazole (Omeprazole 20 Mg Capsule.Dr) 20 mg PO BID@0630,1630 [facility] Sodium Chloride (0.9 % Sodium Chloride Flush 3 Ml Syringe) 3 ml IVFLUSH QSHIFT [facility] Home Medications Medication Instructions Recorded Confirmed Last Taken Type amlodipine 10 mg tablet 10 mg PO DAILY 10/11/22 10/17/22 Unknown History gabapentin 400 mg capsule 400 mg PO TID 10/11/22 10/17/22 Unknown History glimepiride 4 mg tablet 4 mg PO DAILY 10/11/22 10/17/22 Unknown History levothyroxine 50 mcg tablet 50 mcg PO DAILY 10/11/22 10/17/22 Unknown History metoprolol succinate 25 mg 25 mg PO DAILY 10/11/22 10/17/22 Unknown History tablet,extended release 24 hr oxycodone 10 mg tablet 10 mg PO QID PRN Pain (Scale Score 10/11/22 10/17/22 Unknown History 4-6) pioglitazone 30 mg tablet 30 mg PO DAILY 10/11/22 10/17/22 Unknown History torsemide 20 mg tablet 40 mg PO BID 10/11/22 10/17/22 Unknown History diphenhydramine HCl 25 mg capsule 25 mg DAILY PRN Allergic Symptoms 10/17/22 10/17/22 Unknown History (Benadryl) prednisone 10 mg tablet See Taper PO DAILY 10/17/22 10/17/22 Unknown History Physical Exam Vital Signs and Narrative: Vital Signs: Last Vital Signs Temp 95.2 F L 10/17/22 14:49 Pulse 74 10/17/22 14:00 Resp 12 10/17/22 14:00 BP 148/55 H 10/17/22 14:00 Pulse Ox 96 10/17/22 14:00 O2 Del Method BiPAP 10/17/22 14:00 O2 Flow Rate 5 10/17/22 10:05 Oxygen Flow Rate 4 10/17/22 08:24 BMI result Body Mass Index 38.7 Const: Other: resting comfortably, intermittently crying Nutritional Appearance: overweight Orientation/consciousness: patient oriented x3 Resp: Other: decreased respiratory effort on CPAP Effort & Inspection: able to speak in complete sentences Cardio: Rate: regular rate Heart sounds: S1 normal heart sound present and S2 normal heart sound present GI: Inspection: No distended Palpation (GI): Soft to palpation and nontender Neuro: General: patient oriented x3 and CN's II-XI intact bilaterally Extrem: Other: able to move all extremities spontaneously General: Yes no pedal edema Results Labs 10/17/22 08:45 10/17/22 08:45 Labs: Laboratory Results - last 24 hr 10/17/22 10/17/22 10/17/22 08:45 08:45 08:45 MCV 91.7 MCH 29.8 MCHC 32.5 RDW 15.0 Plt Count 185 MPV 11.5 Immature Gran % (Auto) 0.8 H Neut % (Auto) 80.2 H Lymph % (Auto) 11.7 L [place] % (Auto) 6.6 Eos % (Auto) 0.5 Baso % (Auto) 0.2 Lymph # (Auto) 2.0 [place] # (Auto) 1.1 Eos # (Auto) 0.1 Baso # (Auto) 0.0 Abs Immat Gran (auto) 0.13 H Absolute Neuts (auto) 13.5 H Absolute Nucleated RBC 0.000 Nucleated RBC % (auto) 0.0 PT 11.6 INR 1.0 APTT 28.5 D-Dimer High Sensitivty 373 O2 Saturation ABG pH at Pt Temp ABG pCO2 at Pt Temp ABG pO2 at Pt Temp ABG HCO3 ABG Base Excess (Actual) Anion Gap 18 Estim Creat Clear Calc 16.4 Estimated GFR 15 Random Glucose 202 H Lactic Acid Calcium 7.9 L D Total Bilirubin 0.6 AST 16 ALT 10 Alkaline Phosphatase 119 H Troponin I High Sens B-Natriuretic Peptide Total Protein 7.0 Albumin 3.7 Lipase 17 Urine Color Urine Appearance Urine pH Ur Specific [place] Urine Protein Urine Glucose (UA) Urine Ketones Urine Blood Urine Nitrite Ur Leukocyte Esterase COVID-19 (IBRAHIMA) COVID-19 Clin Com Influenza Type A (JAH) Influenza Type B (JAH) Influenza A & B Note 10/17/22 10/17/22 10/17/22 08:45 08:45 08:45 MCV MCH MCHC RDW Plt Count MPV Immature Gran % (Auto) Neut % (Auto) Lymph % (Auto) [place] % (Auto) Eos % (Auto) Baso % (Auto) Lymph # (Auto) [place] # (Auto) Eos # (Auto) Baso # (Auto) Abs Immat Gran (auto) Absolute Neuts (auto) Absolute Nucleated RBC Nucleated RBC % (auto) PT INR APTT D-Dimer High Sensitivty O2 Saturation ABG pH at Pt Temp ABG pCO2 at Pt Temp ABG pO2 at Pt Temp ABG HCO3 ABG Base Excess (Actual) Anion Gap Estim Creat Clear Calc Estimated GFR Random Glucose Lactic Acid 1.1 Calcium Total Bilirubin AST ALT Alkaline Phosphatase Troponin I High Sens 11.5 B-Natriuretic Peptide 246 H Total Protein Albumin Lipase Urine Color Urine Appearance Urine pH Ur Specific [place] Urine Protein Urine Glucose (UA) Urine Ketones Urine Blood Urine Nitrite Ur Leukocyte Esterase COVID-19 (IBRAHIMA) COVID-19 Clin Com Influenza Type A (JAH) Influenza Type B (JAH) Influenza A & B Note 10/17/22 10/17/22 10/17/22 08:45 08:45 09:21 MCV MCH MCHC RDW Plt Count MPV Immature Gran % (Auto) Neut % (Auto) Lymph % (Auto) [place] % (Auto) Eos % (Auto) Baso % (Auto) Lymph # (Auto) [place] # (Auto) Eos # (Auto) Baso # (Auto) Abs Immat Gran (auto) Absolute Neuts (auto) Absolute Nucleated RBC Nucleated RBC % (auto) PT INR APTT D-Dimer High Sensitivty O2 Saturation ABG pH at Pt Temp ABG pCO2 at Pt Temp ABG pO2 at Pt Temp ABG HCO3 ABG Base Excess (Actual) Anion Gap Estim Creat Clear Calc Estimated GFR Random Glucose Lactic Acid Calcium Total Bilirubin AST ALT Alkaline Phosphatase Troponin I High Sens B-Natriuretic Peptide Total Protein Albumin Lipase Urine Color Yellow Urine Appearance Clear Urine pH 5.5 Ur Specific [place] 1.020 Urine Protein Negative Urine Glucose (UA) Negative Urine Ketones Negative Urine Blood Negative Urine Nitrite Negative Ur Leukocyte Esterase Negative COVID-19 (IBRAHIMA) Negative COVID-19 Clin Com See Note Influenza Type A (JAH) Negative Influenza Type B (JAH) Negative Influenza A & B Note See Note 10/17/22 11:16 MCV MCH MCHC RDW Plt Count MPV Immature Gran % (Auto) Neut % (Auto) Lymph % (Auto) [place] % (Auto) Eos % (Auto) Baso % (Auto) Lymph # (Auto) [place] # (Auto) Eos # (Auto) Baso # (Auto) Abs Immat Gran (auto) Absolute Neuts (auto) Absolute Nucleated RBC Nucleated RBC % (auto) PT INR APTT D-Dimer High Sensitivty O2 Saturation 95.0 ABG pH at Pt Temp 7.34 L ABG pCO2 at Pt Temp 55 H ABG pO2 at Pt Temp 78 L ABG HCO3 29 H ABG Base Excess (Actual) 3.2 Anion Gap Estim Creat Clear Calc Estimated GFR Random Glucose Lactic Acid Calcium Total Bilirubin AST ALT Alkaline Phosphatase Troponin I High Sens B-Natriuretic Peptide Total Protein Albumin Lipase Urine Color Urine Appearance Urine pH Ur Specific [place] Urine Protein Urine Glucose (UA) Urine Ketones Urine Blood Urine Nitrite Ur Leukocyte Esterase COVID-19 (IBRAHIMA) COVID-19 Clin Com Influenza Type A (JAH) Influenza Type B (JAH) Influenza A & B Note Imaging Radiologist's Impressions: Impressions Chest X-Ray 10/17/22 09:04 IMPRESSION: Small pleural effusions with hazy basilar opacities. Central vascular prominence without significant interstitial change. Pulmonary Perfusion Imaging 10/17/22 11:00 IMPRESSION: Limited exam but no perfusion defects seen. Assessment and Plan (1) Hypoxic: Status: Acute (2) Acute kidney injury superimposed on CKD: Status: Acute Plan This is a 77-year-old female with history of HFpEF, T2DM, HTN, CKD 3/4, chronic back/neck pain secondary to spinal stenosis who presents to the emergency department with complaints of shortness of breath found to have acute respiratory failure secondary to CHF acute respiratory failure with hypoxia / hypercarbia likely secondary to acute on chronic diastolic CHF Placed on cpap, now down to 5L oxymask procalcitonin low, less likely infection. flu/RSV/covid negative. leukocytosis likely reactive. received empiric abx in ED, will hold off for now acute on chronic HFpEF hold baseline torsemide, treat with IV bumex Chan for accurate Is&Os, low sodium diet cardiology eval KEILA on CKD 4 r/t congestion from CHF follow renal function nephrology consult HTN continue metoprolol, norvasc Morbid obesity BMI 38.8 weight loss encouraged T2DM hold glimepiride, pioglitazone SSI, POCs, ADA diet hypothyroid continue synthroid chronic pain decrease gabapentin dose due to renal dysfunction gerd continue omeprazole dvt ppx -heparin code status - Full code patient will likely require 2 midnight stay in the hospital for management of respiratory failure, CHF requiring IV diuresis, specialist consultation Time Spent With Patient Time: Total time managing care of this patient today ____ minutes. Quality Stroke Does the patient have a stroke diagnosis?: No VTE Prior VTE?: No VTE Risk Level:: Medical - moderate - high VTE Device Contraindication: N/A - Device Ordered VTE Drug Contraindication: N/A - Med Ordered
[2022-10-17 16:15] LABS: Procalcitonin 0.04 ng/mL
[2022-10-17] MEDS: 0.9 % Sodium Chloride Flush 3 ML SYRINGE IVFLUSH ×2 (16:18→20:51)
[2022-10-17 16:45] LABS: TSH reflex Free T4 0.59 uIU/mL (0.32-4.0)
[2022-10-17] MEDS: oxyCODONE HCl Immed Release 5 MG TABLET 10 MG PO (17:23)
[2022-10-17] MEDS: Omeprazole 20 MG CAPSULE.DR PO (17:24)
[2022-10-17] MEDS: Acetaminophen 325 MG TABLET 650 MG PO (17:24)
[2022-10-17 18:07] LABS: Glucose, Whole Blood 262 mg/dL (60-115)
[2022-10-17] MEDS: Heparin Sodium,Porcine 5,000 UNIT/ML VIAL 5000 UNIT SUBCUT (18:19)
--- NOTE | 2022-10-17 19:55 | PC.NURSE ---
report given to Silke NAYLOR
[2022-10-17 20:40] LABS: Glucose, Whole Blood 176 mg/dL (60-115)
[2022-10-17] MEDS: Insulin Lispro 100 UNIT/ML 3 ML VIAL SUBCUT (20:50)
[2022-10-17] MEDS: Gabapentin 100 MG CAPSULE 200 MG PO (20:50)
[2022-10-18] VITALS (8 sets, daily range): BP systolic 137–180; BP diastolic 57–71; PULSE 66–89; RESP 16–20; TEMP 36.3–37.5; O2SAT 84–95
--- NOTE | 2022-10-18 | ECG_ITS ---
Test Reason : chest pain Blood Pressure : / mmHG Vent. Rate : 088 BPM Atrial Rate : 000 BPM P-R Int : 000 ms QRS Dur : 138 ms QT Int : 378 ms P-R-T Axes : 000 -04 159 degrees QTc Int : 457 ms Normal sinus rhythm with frequent Premature atrial complexes Left bundle branch block Abnormal ECG No significant changes when compared with the previous EKG of 17 october 2022 Referred By: Sher Pink Electronically Signed By:SOPHIE BERNARD
--- NOTE | 2022-10-18 00:19 | PM.EVENT ---
Event Note Date of Service: 10/18/22 Event Note: complaining of chest pain, will get ekg, trop, nitro Time Spent With Patient Time: Total time managing care of this patient today ____ minutes.
[2022-10-18] MEDS: Nitroglycerin 0.4 MG TAB.SUBL SUBLINGUAL (00:35)
[2022-10-18 00:58] LABS: Troponin-I High Sensitivity 13.9 ng/L (<3.5-17.0)
[2022-10-18] MEDS: oxyCODONE HCl Immed Release 5 MG TABLET 10 MG PO ×2 (03:53→12:49)
[2022-10-18] MEDS: Heparin Sodium,Porcine 5,000 UNIT/ML VIAL 5000 UNIT SUBCUT ×2 (05:01→19:35)
[2022-10-18] MEDS: Omeprazole 20 MG CAPSULE.DR PO ×2 (05:02→16:38)
[2022-10-18] MEDS: Levothyroxine Sodium 50 MCG TABLET PO (05:02)
[2022-10-18 05:07] LABS: Hematocrit 30.9 % (37.0-47.0); Hemoglobin 10.1 g/dl (12.0-16.0); Mean Corpuscular HGB Conc 32.7 g/dl (31.0-35.0); Mean Corpuscular Hemoglobin 29.4 pg (27.0-33.0); Mean Corpuscular Volume 89.8 fL (80.0-98.0); Mean Platelet Volume 11.4 fL (9.4-12.3); Platelet Count 176 X10*3/uL (160-400); Red Blood Count 3.44 X10*6/uL (4.20-5.50); White Blood Count 14.8 X10*3/uL (4.8-10.8)
[2022-10-18] MEDS: Furosemide 40 MG/4 ML VIAL IVPUSH (05:07)
[2022-10-18] MEDS: Morphine Sulfate 2 MG/ML CARTRIDGE 1 MG IVPUSH ×2 (05:07→23:32)
[2022-10-18 05:09] LABS: Venous Blood Gas Refer to POC result
[2022-10-18 05:10] LABS: VBG Base Excess 9.5 mmol/L; VBG HCO3 34 mmol/L (22-26); VBG pCO2 47 mmHg; VBG pH 7.46 (7.32-7.43); VBG pO2 62 mmHg
[2022-10-18 05:26] LABS: Anion Gap 16 (12-20); Blood Urea Nitrogen 60 mg/dL (9-16); Calcium 7.8 mg/dL (8.4-10.2); Carbon Dioxide 26 mmol/L (22-29); Chloride 104 mmol/L (96-108); Estimated Glomerular Filt Rate 18; Glucose Random 103 mg/dL (60-115); Potassium 4.4 mmol/L (3.3-5.1); Sodium 142 mmol/L (135-145)
--- NOTE | 2022-10-18 07:20 | PC.NURSE ---
P - Patient complaining of chest pain during overnight shift. I - Patient assessed. Described pain as 10/10 chest pain located in epigastric area. MD made aware and EKG obtained showing atrial fibrillation. Patient given one dose of SL Nitro with some relief. E - Later in the morning Patient was noted to be desatting 88% and stating that she can't breathe. Titrated oxymask from 5L to 7L. Respiratory at bedside. MD order for ABGs, IV lasix, and IV morphine. Vitals improved to HR 80's, O2 95%. Patient to see cardiology. Oncoming RN aware.
[2022-10-18 07:33] LABS: Glucose, Whole Blood 109 mg/dL (60-115)
[2022-10-18 08:10] LABS: B Type Natriuretic Peptide 355 pg/mL (<100)
[2022-10-18] MEDS: 0.9 % Sodium Chloride Flush 3 ML SYRINGE IVFLUSH ×2 (08:56→21:30)
[2022-10-18] MEDS: Furosemide 200 MG in 0.9 % Sodium Chloride 80 ML IVCONT (08:56)
[2022-10-18] MEDS: Gabapentin 100 MG CAPSULE 200 MG PO ×3 (09:33→19:53)
[2022-10-18] MEDS: amLODIPine Besylate 10 MG TABLET PO (09:33)
[2022-10-18] MEDS: Metoprolol Succinate ER 25 MG TAB.ER.24H PO (09:33)
[2022-10-18 09:41] LABS: Troponin-I High Sensitivity 23.4 ng/L (<3.5-17.0)
--- NOTE | 2022-10-18 09:50 | PC.NURSE ---
pt relatedd to justowriter operator that occasionally when she eats/drinks it feels like it comes back up and she then has trouble breathing. This has been happening for a while. Gum Worker related this to provider
--- NOTE | 2022-10-18 10:00 | HO.PM.IMPN ---
Subjective Subjective Date of Service: 10/18/22 Interval History: seen and examined this morning follow up for sob reporting chest heaviness and shortness of breath no abdominal pain. no cough Review of Systems Review of Systems: Yes all other systems are reviewed and are negative Constitutional Constitutional: Denies chills and Denies fever(s) Cardiovascular Cardiovascular: Reports chest pain, Denies palpitations and Reports dyspnea Respiratory Respiratory: Denies cough and Reports dyspnea Gastrointestinal Gastrointestinal: Denies abdominal pain, Denies nausea and Denies vomiting Endocrine Endocrine: Denies palpitations Physical Exam Vital Signs: Vital Signs: Last Vital Signs Temp 98.0 F 10/18/22 07:25 Pulse 84 10/18/22 07:25 Resp 20 10/18/22 07:25 BP 137/66 10/18/22 07:25 Pulse Ox 91 L 10/18/22 08:37 O2 Del Method Oxymask 10/18/22 08:37 O2 Flow Rate 11 10/18/22 08:37 Oxygen Flow Rate 4 10/17/22 08:24 BMI result Body Mass Index 38.7 Const: Other: anxious General: alert and awake Nutritional Appearance: overweight Orientation/consciousness: patient oriented x3 Resp: Other: decreased respiratory effort, bilateral rales Cardio: Rate: regular rate Heart sounds: S1 normal heart sound present and S2 normal heart sound present GI: Inspection: No distended Palpation (GI): Soft to palpation and nontender Neuro: General: patient oriented x3 and CN's II-XI intact bilaterally Extrem: Other: trace leg edema Objective Data Active Medications Acetaminophen (Acetaminophen 325 Mg Tablet) 650 mg PO Q6H PRN PRN Reason: Pain, Mild (Pain Scale 1-3) Last Admin: 10/17/22 17:24 Dose: 650 mg Documented By: MICHELE Amlodipine Besylate (Amlodipine Besylate 10 Mg Tablet) 10 mg PO DAILY [facility]; Protocol Last Admin: 10/18/22 09:33 Dose: 10 mg Documented By: MONICA Docusate Sodium (Docusate Sodium 100 Mg Capsule) 100 mg PO DAILY PRN PRN Reason: Constipation Gabapentin (Gabapentin 100 Mg Capsule) 200 mg PO TID [facility] Last Admin: 10/18/22 09:33 Dose: 200 mg Documented By: MONICA Glucose (Glucose Gel 15 Gm Gel..Gram.) 15 gm PO Q15M PRN; Protocol PRN Reason: per Hypoglycemia Standing Ord. Heparin Sodium (Porcine) (Heparin Sodium,Porcine 5,000 Unit/Ml Vial) 5,000 unit SUBCUT Q12H [facility] Last Admin: 10/18/22 05:01 Dose: 5,000 unit Documented By: JEWELL Dextrose (D10) 250 mls @ 750 mls/hr IV Q15M PRN; Protocol PRN Reason: per Hypoglycemia Standing Ord. Furosemide 200 mg/ Sodium (Chloride) 100 mls @ 2.5 mls/hr IVCONT .Q24H [facility] Last Admin: 10/18/22 08:56 Dose: 5 mg/hr, 2.5 mls/hr Documented By: MONICA Insulin Human Lispro (Insulin Lispro 100 Unit/Ml 3 Ml Vial) 0 unit SUBCUT QIDACHS [facility]; Protocol Last Admin: 10/18/22 07:38 Dose: Not Given Documented By: MONICA Non-Admin Reason: No Insulin Coverage Levothyroxine Sodium (Levothyroxine Sodium 50 Mcg Tablet) 50 mcg PO DAILY@0630 [facility] Last Admin: 10/18/22 05:02 Dose: 50 mcg Documented By: JEWELL Metoprolol Succinate (Metoprolol Succinate Er 25 Mg Tab.Er.24h) 25 mg PO DAILY [facility]; Protocol Last Admin: 10/18/22 09:33 Dose: 25 mg Documented By: MONICA Omeprazole (Omeprazole 20 Mg Capsule.Dr) 20 mg PO BID@0630,1630 [facility] Last Admin: 10/18/22 05:02 Dose: 20 mg Documented By: JEWELL Oxycodone HCl (Oxycodone Hcl Immed Release 5 Mg Tablet) 10 mg PO Q6H PRN PRN Reason: Pain (Scale Score 4-6) Sodium Chloride (0.9 % Sodium Chloride Flush 3 Ml Syringe) 3 ml IVFLUSH QSHIFT [facility] Last Admin: 10/18/22 08:56 Dose: 3 ml Documented By: MONICA Labs 10/18/22 05:02 10/18/22 05:02 Labs: Laboratory Results - last 24 hr 10/17/22 10/17/22 10/17/22 08:45 11:16 18:01 MCV MCH MCHC RDW Plt Count MPV Absolute Nucleated RBC Nucleated RBC % (auto) O2 Saturation 95.0 ABG pH at Pt Temp 7.34 L ABG pCO2 at Pt Temp 55 H ABG pO2 at Pt Temp 78 L ABG HCO3 29 H ABG Base Excess (Actual) 3.2 VBG pH VBG pCO2 VBG pO2 VBG HCO3 VBG O2 Saturation VBG Base Excess Anion Gap Estim Creat Clear Calc Estimated GFR POC Glucose 262 H Random Glucose Calcium Troponin I High Sens B-Natriuretic Peptide Procalcitonin 0.04 TSH 0.59 10/17/22 10/18/22 10/18/22 20:34 00:29 05:02 MCV 89.8 MCH 29.4 MCHC 32.7 RDW 15.0 Plt Count 176 MPV 11.4 Absolute Nucleated RBC 0.000 Nucleated RBC % (auto) 0.0 O2 Saturation ABG pH at Pt Temp ABG pCO2 at Pt Temp ABG pO2 at Pt Temp ABG HCO3 ABG Base Excess (Actual) VBG pH VBG pCO2 VBG pO2 VBG HCO3 VBG O2 Saturation VBG Base Excess Anion Gap Estim Creat Clear Calc Estimated GFR POC Glucose 176 H Random Glucose Calcium Troponin I High Sens 13.9 B-Natriuretic Peptide Procalcitonin TSH 10/18/22 10/18/22 10/18/22 05:02 05:02 05:03 MCV MCH MCHC RDW Plt Count MPV Absolute Nucleated RBC Nucleated RBC % (auto) O2 Saturation ABG pH at Pt Temp ABG pCO2 at Pt Temp ABG pO2 at Pt Temp ABG HCO3 ABG Base Excess (Actual) VBG pH 7.46 H VBG pCO2 47 VBG pO2 62 VBG HCO3 34 H VBG O2 Saturation 93.0 VBG Base Excess 9.5 Anion Gap 16 Estim Creat Clear Calc 19.0 Estimated GFR 18 POC Glucose Random Glucose 103 Calcium 7.8 L Troponin I High Sens B-Natriuretic Peptide 355 H Procalcitonin TSH 10/18/22 10/18/22 07:24 09:03 MCV MCH MCHC RDW Plt Count MPV Absolute Nucleated RBC Nucleated RBC % (auto) O2 Saturation ABG pH at Pt Temp ABG pCO2 at Pt Temp ABG pO2 at Pt Temp ABG HCO3 ABG Base Excess (Actual) VBG pH VBG pCO2 VBG pO2 VBG HCO3 VBG O2 Saturation VBG Base Excess Anion Gap Estim Creat Clear Calc Estimated GFR POC Glucose 109 Random Glucose Calcium Troponin I High Sens 23.4 H D B-Natriuretic Peptide Procalcitonin TSH Assessment and Plan (1) Acute kidney injury superimposed on CKD: Status: Acute (2) Acute respiratory failure with hypoxia and hypercapnia: Status: Acute (3) Acute on chronic diastolic CHF (congestive heart failure): Status: Acute Plan This is a 77-year-old female with history of HFpEF, T2DM, HTN, CKD 3/4, chronic back/neck pain secondary to spinal stenosis who presents to the emergency department with complaints of shortness of breath found to have acute respiratory failure secondary to CHF acute respiratory failure with hypoxia / hypercarbia likely secondary to acute on chronic diastolic CHF procalcitonin low, less likely infection. flu/RSV/covid negative. leukocytosis likely reactive. received empiric abx in ED, will hold off for now acute on chronic HFpEF hold baseline torsemide, will transition to lasix drip Chan for accurate Is&Os seen by cardiology KEILA on CKD 4 r/t congestion from CHF, should improve with diuresis follow renal function nephrology consult HTN continue metoprolol, norvasc Morbid obesity BMI 38.8 weight loss encouraged T2DM hold glimepiride, pioglitazone SSI, POCs, ADA diet hypothyroid continue synthroid chronic pain renally dose gabapentin dose due to renal dysfunction initially started on lower dose of baseline oxycodone, pt complaining of pain will increase back to home dose; monitor for sedation gerd continue omeprazole Morbid obesity bmi 38.8 weight loss encouraged dvt ppx -heparin code status - Full code patient requires ongoing stay in the hospital for management of respiratory failure, CHF requiring IV diuresis, specialist consultation, close monitoring of respiratory status Time Spent With Patient Time: Total time managing care of this patient today ____ minutes. Quality Stroke Does the patient have a stroke diagnosis?: No VTE Prior VTE?: No VTE Risk Level:: Medical - moderate - high VTE Device Contraindication: N/A - Device Ordered VTE Drug Contraindication: N/A - Med Ordered
--- NOTE | 2022-10-18 10:48 | PM.CNCAR ---
History of Present Illness History of Present Illness Date of Service: 10/18/22 Chief complaint: respiratory failure Narrative: This is a cardiology consultation regarding congestive heart failure. Patient has history of diastolic congestive heart failure, hypertension, diabetes and chronic kidney disease. It seems that she does not do too much at baseline. Looks frail to me. She does have shortness of breath off and on but more recently for the last few days. Intermittent leg swelling. Because of shortness of breath, she was seen in the emergency room. She was found to be hypoxic and required supplemental oxygen. Then apparently she was about to get a V/Q scan and then O2 sats went into the 70s at which time she briefly lost consciousness. Then subsequently improved. Any case, she was when she was admitted for further care. At this time, she still has some shortness of breath and curled up in bed. Remains on supplemental oxygen. Denies any chest pain. According to patient, denies any clear cardiac history like coronary disease or myocardial infarction anything else. Listed diastolic CHF only. Review of Systems Review of Systems: Yes all other systems are reviewed and are negative Constitutional: Constitutional: Reports as per HPI and Reports no additional constitutional complaints Eyes: Eyes: Reports as per HPI and Denies no additional eye complaints ENT: Denies system reviewed and no additional complaints, except as documented and Reports as per HPI Cardiovascular: Cardiovascular: Reports as per HPI, Reports no additional cardiovascular complaints, Denies acrocyanosis, Denies cool extremities, Denies chest pain, Denies leg edema, Denies lightheadedness, Denies palpitations and Reports dyspnea Respiratory: Respiratory: Reports as per HPI, Denies no additional respiratory complaints and Reports dyspnea Gastrointestinal: Gastrointestinal: Reports as per HPI and Denies no additional gastrointestinal complaints Genitourinary: Genitourinary: Reports as per HPI Musculoskeletal: Musculoskeletal: Reports no additional musculoskeletal complaints and Reports as per HPI Integumentary/Breasts: Skin/Breast: Reports system reviewed and no additional complaints, except as docu Neurologic: Reports system reviewed and no additional complaints, except as documented and Reports as per HPI Psychiatric: Psychiatric: Reports no additional psychiatric complaints and Reports as per HPI Endocrine: Endocrine: Reports no additional endocrine complaints, Reports as per HPI and Denies palpitations Hematologic/Lymphatic: Hematologic/Lymphatic: Reports no additional hematologic/lymphatic complaints and Reports as per HPI Allergic/Immunologic: Allergic/Immunologic: Reports no additional allergic/immunologic complaints and Reports as per [facility] Past Medical History Medical History (Updated 10/18/22 @ 10:02 by BON Barber) CKD (chronic kidney disease), stage IV Diabetes Diastolic CHF HTN (hypertension) Spinal stenosis Thyroid activity decreased Family History Family History (Updated 10/17/22 @ 16:13 by BON Barber) Other Diabetes Social History Social History Household Members: Spouse Housing: House Do you presently have visiting nurse or other home services: No Alcohol intake: never Patient Tobacco Use Status: Never used Tobacco Smoked in Last 30 Days: No Second Hand Smoke Exposure: No Use of substances other than those prescribed or required for medical reasons: No Currently Displaying Signs/Symptoms of Drug Intoxication Withdrawal: No Have you been hit, kicked, punched, or otherwise hurt by someone within the past year? If so, by whom?: No Do you feel safe in your current relationship?: Yes Is there a partner from a previous relationship who is making you feel unsafe now?: No Are you made to feel afraid or neglected: No Advance Directives: Yes Advance Directives on File: Yes Advance Directives Date on File: 08/22/20 Do you have thoughts of harming others: None Do you have a plan to hurt others: No Plan Recently lost weight without trying: No Eating poorly because of decreased appetite: No Nutrition Risks: No Nutritional Risk Patient : No : No Poor oral hygiene: No Meds Allergies Allergy/AdvReac Type Severity Reaction Status Date / Time levofloxacin [From LEVAQUIN] AdvReac Mild flushed Verified 10/11/22 11:12 Active Medications: Current Medications Acetaminophen (Acetaminophen 325 Mg Tablet) 650 mg PO Q6H PRN PRN Reason: Pain, Mild (Pain Scale 1-3) Last Admin: 10/17/22 17:24 Dose: 650 mg Amlodipine Besylate (Amlodipine Besylate 10 Mg Tablet) 10 mg PO DAILY [facility]; Protocol Last Admin: 10/18/22 09:33 Dose: 10 mg Docusate Sodium (Docusate Sodium 100 Mg Capsule) 100 mg PO DAILY PRN PRN Reason: Constipation Gabapentin (Gabapentin 100 Mg Capsule) 200 mg PO TID [facility] Last Admin: 04/22/23 09:33 Dose: 200 mg Glucose (Glucose Gel 15 Gm Gel..Gram.) 15 gm PO Q15M PRN; Protocol PRN Reason: per Hypoglycemia Standing Ord. Heparin Sodium (Porcine) (Heparin Sodium,Porcine 5,000 Unit/Ml Vial) 5,000 unit SUBCUT Q12H [facility] Last Admin: 10/18/22 05:01 Dose: 5,000 unit Dextrose (D10) 250 mls @ 750 mls/hr IV Q15M PRN; Protocol PRN Reason: per Hypoglycemia Standing Ord. Furosemide 200 mg/ Sodium (Chloride) 100 mls @ 2.5 mls/hr IVCONT .Q24H [facility] Last Admin: 10/18/22 08:56 Dose: 5 mg/hr, 2.5 mls/hr Insulin Human Lispro (Insulin Lispro 100 Unit/Ml 3 Ml Vial) 0 unit SUBCUT QIDACHS [facility]; Protocol Last Admin: 10/18/22 07:38 Dose: Not Given Levothyroxine Sodium (Levothyroxine Sodium 50 Mcg Tablet) 50 mcg PO DAILY@0630 [facility] Last Admin: 10/18/22 05:02 Dose: 50 mcg Metoprolol Succinate (Metoprolol Succinate Er 25 Mg Tab.Er.24h) 25 mg PO DAILY [facility]; Protocol Last Admin: 10/18/22 09:33 Dose: 25 mg Omeprazole (Omeprazole 20 Mg Capsule.Dr) 20 mg PO BID@0630,1630 [facility] Last Admin: 10/18/22 05:02 Dose: 20 mg Oxycodone HCl (Oxycodone Hcl Immed Release 5 Mg Tablet) 10 mg PO Q6H PRN PRN Reason: Pain (Scale Score 4-6) Sodium Chloride (0.9 % Sodium Chloride Flush 3 Ml Syringe) 3 ml IVFLUSH QSHIFT [facility] Last Admin: 10/18/22 08:56 Dose: 3 ml Home Medications Medication Instructions Recorded Confirmed Last Taken Type amlodipine 10 mg tablet 10 mg PO DAILY 10/11/22 10/17/22 Unknown History gabapentin 400 mg capsule 400 mg PO TID 10/11/22 10/17/22 Unknown History glimepiride 4 mg tablet 4 mg PO DAILY 10/11/22 10/17/22 Unknown History levothyroxine 50 mcg tablet 50 mcg PO DAILY 10/11/22 10/17/22 Unknown History metoprolol succinate 25 mg 25 mg PO DAILY 10/11/22 10/17/22 Unknown History tablet,extended release 24 hr oxycodone 10 mg tablet 10 mg PO QID PRN Pain (Scale Score 10/11/22 10/17/22 Unknown History 4-6) pioglitazone 30 mg tablet 30 mg PO DAILY 10/11/22 10/17/22 Unknown History torsemide 20 mg tablet 40 mg PO BID 10/11/22 10/17/22 Unknown History diphenhydramine HCl 25 mg capsule 25 mg DAILY PRN Allergic Symptoms 10/17/22 10/17/22 Unknown History (Benadryl) prednisone 10 mg tablet See Taper PO DAILY 10/17/22 10/17/22 Unknown History Physical Exam Vital Signs: Vital Signs: Last Vital Signs Temp 98.0 F 10/18/22 07:25 Pulse 84 10/18/22 07:25 Resp 20 10/18/22 07:25 BP 137/66 10/18/22 07:25 Pulse Ox 91 L 10/18/22 08:37 O2 Del Method Oxymask 10/18/22 08:37 O2 Flow Rate 11 10/18/22 08:37 Oxygen Flow Rate 4 10/17/22 08:24 BMI result Body Mass Index 38.7 Const: General: comfortable, no acute distress, ill appearing, lethargic and tired appearing Orientation/consciousness: patient oriented x3 and lethargic HEENT: Other: Unremarkable Head: Yes normal to inspection Neck: Neck: Yes normal visual inspection Chest: Chest palpation & inspection: normal inspection of the chest Resp: Auscultation: crackles Cardio: Palpation: normal PMI Heart sounds: S1 normal heart sound present, S2 normal heart sound present, no gallops, Murmur heart sound present systolic III/ and no rubs GI: Palpation (GI): Soft to palpation Back/Spine/Pelvis: Other: unremarkable Skin: General skin exam: no rashes or lesions noted Neuro: General: patient oriented x3 Extrem: Other: some hand swelling, but LE ok. The General: Yes normal to inspection Psych: Mental Status: mental status grossly normal Objective Labs and Meds 10/18/22 05:02 10/18/22 05:02 Lab results: Laboratory Results - last 24 hr 10/17/22 10/17/22 10/17/22 08:45 11:16 18:01 WBC RBC Hgb Hct MCV MCH MCHC RDW Plt Count MPV Absolute Nucleated RBC Nucleated RBC % (auto) O2 Saturation 95.0 ABG pH at Pt Temp 7.34 L ABG pCO2 at Pt Temp 55 H ABG pO2 at Pt Temp 78 L ABG HCO3 29 H ABG Base Excess (Actual) 3.2 VBG pH VBG pCO2 VBG pO2 VBG HCO3 VBG O2 Saturation VBG Base Excess Sodium Potassium Chloride Carbon Dioxide Anion Gap BUN Creatinine Estim Creat Clear Calc Estimated GFR POC Glucose 262 H Random Glucose Calcium Troponin I High Sens B-Natriuretic Peptide Procalcitonin 0.04 TSH 0.59 10/17/22 10/18/22 10/18/22 20:34 00:29 05:02 WBC 14.8 H RBC 3.44 L Hgb 10.1 L Hct 30.9 L MCV 89.8 MCH 29.4 MCHC 32.7 RDW 15.0 Plt Count 176 MPV 11.4 Absolute Nucleated RBC 0.000 Nucleated RBC % (auto) 0.0 O2 Saturation ABG pH at Pt Temp ABG pCO2 at Pt Temp ABG pO2 at Pt Temp ABG HCO3 ABG Base Excess (Actual) VBG pH VBG pCO2 VBG pO2 VBG HCO3 VBG O2 Saturation VBG Base Excess Sodium Potassium Chloride Carbon Dioxide Anion Gap BUN Creatinine Estim Creat Clear Calc Estimated GFR POC Glucose 176 H Random Glucose Calcium Troponin I High Sens 13.9 B-Natriuretic Peptide Procalcitonin TSH 10/18/22 10/18/22 10/18/22 05:02 05:02 05:03 WBC RBC Hgb Hct MCV MCH MCHC RDW Plt Count MPV Absolute Nucleated RBC Nucleated RBC % (auto) O2 Saturation ABG pH at Pt Temp ABG pCO2 at Pt Temp ABG pO2 at Pt Temp ABG HCO3 ABG Base Excess (Actual) VBG pH 7.46 H VBG pCO2 47 VBG pO2 62 VBG HCO3 34 H VBG O2 Saturation 93.0 VBG Base Excess 9.5 Sodium 142 Potassium 4.4 Chloride 104 Carbon Dioxide 26 Anion Gap 16 BUN 60 H Creatinine 2.55 H Estim Creat Clear Calc 19.0 Estimated GFR 18 POC Glucose Random Glucose 103 Calcium 7.8 L Troponin I High Sens B-Natriuretic Peptide 355 H Procalcitonin TSH 10/18/22 10/18/22 07:24 09:03 WBC RBC Hgb Hct MCV MCH MCHC RDW Plt Count MPV Absolute Nucleated RBC Nucleated RBC % (auto) O2 Saturation ABG pH at Pt Temp ABG pCO2 at Pt Temp ABG pO2 at Pt Temp ABG HCO3 ABG Base Excess (Actual) VBG pH VBG pCO2 VBG pO2 VBG HCO3 VBG O2 Saturation VBG Base Excess Sodium Potassium Chloride Carbon Dioxide Anion Gap BUN Creatinine Estim Creat Clear Calc Estimated GFR POC Glucose 109 Random Glucose Calcium Troponin I High Sens 23.4 H D B-Natriuretic Peptide Procalcitonin TSH ECG Interpretation: EKG with sinus rhythm at 83/Min; left bundle-branch block pattern; frequent PACs. Imaging Radiologist's impression: Impressions Pulmonary Perfusion Imaging 10/17/22 11:00 IMPRESSION: Limited exam but no perfusion defects seen. Assessment and Plan (1) Acute on chronic diastolic CHF (congestive heart failure): Status: Acute (2) Acute respiratory failure with hypoxia and hypercapnia: Status: Acute (3) Acute kidney injury superimposed on CKD: Status: Acute Plan Labs reviewed. BUN is 60. Creatinine is 2.5. High sensitivity troponin 13 and 23. Cardiac BNP is 246 and 355. Chest x-ray shows small pleural effusions with hazy basilar opacities. Central vascular prominence. No significant interstitial change. At the current time, agree with IV diuretics for presumed diastolic congestive heart failure/acute on chronic renal failure. We can get an echocardiogram as the last study from 2019. At that time, showed preserved LVEF and grade 2 diastolic dysfunction. Will follow up with you. Discussed with Elaine York. Time Spent With Patient Time: Total time managing care of this patient today ____ minutes. Procedures Date of Service Date of Service: 10/18/22
[2022-10-18 11:09] LABS: Glucose, Whole Blood 153 mg/dL (60-115)
[2022-10-18 16:09] LABS: Glucose, Whole Blood 134 mg/dL (60-115)
--- NOTE | 2022-10-18 17:40 | PC.NURSE ---
pt c/o her bladder feeling full and had pain in suprapubic and lower abdominal area. It was noted that pt had very little output in her singh. travel writer bladder scanned pt and had a result of 300 mL. Upon examination of pt's singh it was found that the bladder was un inflated and the catheter was no longer inserted properly. Burn Out Scarfing Operator inserted a new 16 Fr singh. Some urine was noted upon insertion, but no further output. Pt continued to states she felt like she had to pee. DAYDAY Ryder assisted with insertion of a second singh with similar result. travel writer then contacted BON York who suggested a renal ultrasound, and then spoke with Dr. Hdz. later, approx 1800, pt voided, requiring bed change. Singh was removed and purewick used instead. will continue to monitor
--- NOTE | 2022-10-18 18:08 | P.EN_ITS ---
Agree with below. Discuss the staff in detail. Monitor I/o closely Added CT of abdomen since abdomen is looking soft, nondistended , no rebound or guarding. Has some suprapubic tenderness and and questionable left lower quadrant tenderness. She is passing gases She said she has poor appetite for some time,? Unclear when was the last BM Event Note Date of Service: 10/18/22 Event Note: Nurse called for question of urinary retention, pt was seen -- by that time folley came out and pt urinated on pad on bed. Pt then complaing of lower abdominal discomfort in suprapubic/left lower quadrant. Pt does not know when last time had bowel movement, but passing flatus regularly. Patient denies fever, chills, nausea, vomiting, diarrhea. Physical exam revealed mild suprapubic and left-sided abdominal tenderness with no rebound tenderness or guarding. Will get CT of abdomen and pelvis without contrast. Time Spent With Patient Time: Total time managing care of this patient today ____ minutes.
[2022-10-18] MEDS: Acetaminophen 325 MG TABLET 650 MG PO (19:49)
[2022-10-18 20:00] LABS: Glucose, Whole Blood 132 mg/dL (60-115)
--- NOTE | 2022-10-18 21:06 | PC.NURSE ---
pt refused CT donya juarez notified i asked pt twice she said she cant be lying down on that table . she also said she dosnt have pain in abdomen but feels like she needs to empty something will monitor for pain
--- NOTE | 2022-10-18 23:50 | PM.EVENT ---
Event Note Date of Service: 10/18/22 Event Note: patient with increasing resp distress, hypoxia, given bumex 1mg iv, morphine, cxr, d/w icu will transfer for CPAP and further diuresis Time Spent With Patient Time: Total time managing care of this patient today ____ minutes.
[2022-10-19] VITALS (19 sets, daily range): BP systolic 108–181; BP diastolic 40–81; PULSE 67–102; RESP 11–24; TEMP 36.3–37.4; O2SAT 85–99; BMI 38.5
--- NOTE | 2022-10-19 00:08 | PM.CCPN ---
Subjective Subjective Date of Service: 10/19/22 Critical Care Time (minutes): 45 Comment: The patient is a 77-year-old? female with underlying diastolic dysfunction, obesity, hypertension, diabetes mellitus, hypothyroidism admitted for dyspnea and hypoxia secondary to exacerbation of underlying chronic diastolic congestive heart failure, with pulmonary edema, lower extremity edema, acute kidney injury likely secondary to poor forward flow perfusion with initial symptomatic improvement after diuresis.? Currently on my exam on oxyMask at 7 L with O2 sat of 92%, dyspneic with accessory muscle use, normal hemodynamics, awake and anxious but answering appropriately. The patient was transferred? to ICU with increasing respiratory distress and hypoxia for CPAP and further diuresis. Physical Exam Vital Signs: Vital Signs: Last Vital Signs Temp 97.3 F 10/18/22 23:35 Pulse 84 10/18/22 23:35 Resp 20 10/18/22 23:35 BP 145/70 H 10/18/22 23:35 Pulse Ox 92 10/18/22 23:35 O2 Del Method Oxymask 10/18/22 19:59 O2 Flow Rate 7 10/18/22 23:35 Oxygen Flow Rate 4 10/17/22 08:24 BMI result Body Mass Index 38.7 Const: General: alert, acute distress moderate and anxious Nutritional Appearance: obese Orientation/consciousness: patient oriented x3 (answering appropriately.) HEENT: Head: Yes normocephalic and Yes atraumatic General nose exam: Normal external nose present (Nares patent, septum midline, sinuses nontender bilaterally.) Mouth: Normal oral and palatal mucosa present (No thrush, tongue in midline, mucosa moist.) Throat: Yes other (No erythema, no exudate.) Neck: Neck: Yes supple (no thyromegaly, trachea midline.) Carotids: normal carotid upstroke Resp: Auscultation: crackles Cardio: Jugular venous distension: no JVD Rate: regular rate Rhythm: abnormal rhythm with ectopic beats Heart sounds: no gallops, no murmurs and no rubs Peripheral pulses: Peripheral pulses 2+ throughout GI: Palpation (GI): Soft to palpation (nondistended.) and Tenderness to palpation present (GI) Neuro: General: patient oriented x3 (answering appropriately.) Extrem: General: Yes full ROM, Yes capillary refill normal and Yes edema Psych: Affect: normal affect Attitude: cooperative Objective Data Labs 10/18/22 05:02 04/22/23 05:02 Labs: Laboratory Results - last 24 hr 10/18/22 10/18/22 10/18/22 00:29 05:02 05:02 WBC 14.8 H RBC 3.44 L Hgb 10.1 L Hct 30.9 L MCV 89.8 MCH 29.4 MCHC 32.7 RDW 15.0 Plt Count 176 MPV 11.4 Absolute Nucleated RBC 0.000 Nucleated RBC % (auto) 0.0 VBG pH VBG pCO2 VBG pO2 VBG HCO3 VBG O2 Saturation VBG Base Excess Sodium 142 Potassium 4.4 Chloride 104 Carbon Dioxide 26 Anion Gap 16 BUN 60 H Creatinine 2.55 H Estim Creat Clear Calc 19.0 Estimated GFR 18 POC Glucose Random Glucose 103 Calcium 7.8 L Troponin I High Sens 13.9 B-Natriuretic Peptide 10/18/22 10/18/22 10/18/22 05:02 05:03 07:24 WBC RBC Hgb Hct MCV MCH MCHC RDW Plt Count MPV Absolute Nucleated RBC Nucleated RBC % (auto) VBG pH 7.46 H VBG pCO2 47 VBG pO2 62 VBG HCO3 34 H VBG O2 Saturation 93.0 VBG Base Excess 9.5 Sodium Potassium Chloride Carbon Dioxide Anion Gap BUN Creatinine Estim Creat Clear Calc Estimated GFR POC Glucose 109 Random Glucose Calcium Troponin I High Sens B-Natriuretic Peptide 355 H 10/18/22 10/18/22 10/18/22 09:03 11:05 15:34 WBC RBC Hgb Hct MCV MCH MCHC RDW Plt Count MPV Absolute Nucleated RBC Nucleated RBC % (auto) VBG pH VBG pCO2 VBG pO2 VBG HCO3 VBG O2 Saturation VBG Base Excess Sodium Potassium Chloride Carbon Dioxide Anion Gap BUN Creatinine Estim Creat Clear Calc Estimated GFR POC Glucose 153 H 134 H Random Glucose Calcium Troponin I High Sens 23.4 H D B-Natriuretic Peptide 10/18/22 19:56 WBC RBC Hgb Hct MCV MCH MCHC RDW Plt Count MPV Absolute Nucleated RBC Nucleated RBC % (auto) VBG pH VBG pCO2 VBG pO2 VBG HCO3 VBG O2 Saturation VBG Base Excess Sodium Potassium Chloride Carbon Dioxide Anion Gap BUN Creatinine Estim Creat Clear Calc Estimated GFR POC Glucose 132 H Random Glucose Calcium Troponin I High Sens B-Natriuretic Peptide Microbiology Microbiology Results: Microbiology 10/17/22 08:57 Blood - Venous Blood Culture - Preliminary No growth after 24 hours. 10/17/22 08:45 Blood - Venous Blood Culture - Preliminary No growth after 24 hours. Progress Note: A&P Assessment and plan (1) Acute on chronic diastolic CHF (congestive heart failure): Status: Acute (2) Acute respiratory failure with hypoxia and hypercapnia: Status: Acute (3) Hypoxic: Status: Acute (4) Acute kidney injury superimposed on CKD: Status: Acute (5) Acute kidney injury: Status: Acute Plan This is a 77-year-old female with history of HFpEF, T2DM, HTN, CKD 3/4,? chronic back/neck pain secondary to spinal stenosis who was transferred to ICU from the medical telemetry floor with increasing respiratory distress and hypoxia for CPAP and further diuresis. Neuro: ? No acute issues. Cardiac: ? Acute CHF exacerbation.? Baseline torsemide held.? Change Lasix drip to Bumex drip. ? Close hemodynamic monitoring. Chan for accurate I?s and O?s. Pulmonary:? ? Acute respiratory failure with hypoxia likely secondary to acute on chronic diastolic CHF. ? CXR. CPAP.? Renal:? KEILA on CKD 4.? Likely related to congestion from CHF.? Should improve with diuresis.? Check electrolytes. Monitor renal indices and urine output. Nephrology service care appreciated. Endo:? No acute issues.?? GI:? No acute issues. ID:? No acute issues Heme/Onc:? No acute issues. Psych: No acute issues. Prophylaxis:? Heparin, PPI Diet:? NPO? Quality Stroke Does the patient have a stroke diagnosis?: No VTE Prior VTE?: No VTE Risk Level:: Medical - moderate - high VTE Device Contraindication: N/A - Device Ordered VTE Drug Contraindication: N/A - Med Ordered
--- NOTE | 2022-10-19 00:13 | PC.NURSE ---
pt o2 sat is 89-90 % . pt also states she can't breathe. md notified . order received to give 2 mg of morphine chest x-ray, and and give 1 mg of bumex and ICU TO EVAL. pt for posssible bipap. TURBO OPERATOR from ICU came to see pt and transferred to ICU. REPORT GIVEN TO Marc NAYOLR
[2022-10-19] MEDS: Bumetanide 1 MG/4 ML VIAL 0.5 MG IVPUSH (00:31)
[2022-10-19 00:32] LABS: VBG Base Excess 10.2 mmol/L; VBG HCO3 35 mmol/L (22-26); VBG pCO2 50 mmHg; VBG pH 7.45 (7.32-7.43); VBG pO2 53 mmHg
[2022-10-19 00:40] LABS: Venous Blood Gas Refer to POC result
[2022-10-19 00:56] LABS: Anion Gap 14 (12-20); Blood Urea Nitrogen 55 mg/dL (9-16); Calcium 8.2 mg/dL (8.4-10.2); Carbon Dioxide 32 mmol/L (22-29); Chloride 102 mmol/L (96-108); Glucose Random 106 mg/dL (60-115); Potassium 4.1 mmol/L (3.3-5.1); Sodium 144 mmol/L (135-145)
[2022-10-19 01:03] LABS: Creatinine Clr Calc Pharmacy 19.4; Estimated Glomerular Filt Rate 19
[2022-10-19] MEDS: Bumetanide 25 MG in Container,Empty 0 ML IVCONT ×2 (01:14→08:04)
[2022-10-19] MEDS: Morphine Sulfate 2 MG/ML CARTRIDGE 1 MG IVPUSH ×5 (02:21→20:40)
[2022-10-19] MEDS: ondansetron HCL 4 MG/2 ML VIAL IVPUSH (04:34)
--- NOTE | 2022-10-19 05:01 | PC.NURSE ---
TRANSFERRED FROM MEDICAL TELEMETRY TO [facility]-1 APPROX 12AM..AWAKE..ALERT AND CONVERSANT...ORIENTED X3 BUT OCCASIONAL VAGUE COMMENTS...ANXIOUS...02 8 L/M VIA MASK..SAO2 88-89%...LUNGS WITH DIFFUSE CRACKLES....RESPIRATIONS LABOURED..RT PRESENT AND PLACED ON BIPAP 12/6 AND FIO2 40%....ARGUELLES PLACED PER PUMP HOUSE OPERATOR...DESAT TO 86-87% WITH LYING FLAT FOR ARGUELLES..FIO2 TO 60%...550ml YELLOW URINE OBTAINED ON INSERTION...BUMEX 0.5 MG IVP X1 AND BUMEX DRIP STARTED 0.5 MG/HR...BP STABLE...MONTOR NSR WITH FREQUENT PAC'S TO ATRIAL FIB WITH CONTROLLED HR..ARGUELLES DRAINING LARGE AMOUNTS yellow urine...PREVIOUSLY NAUSEOUS...MEDICATED WITH ZOFRAN X1 PER PUMP HOUSE OPERATOR..DOZED AFTERWARDS...AWAKE THIS AM 5AM...RECURRANCE OF NAUSEA---NO EMESIS...BIPAP MASK OFF AND PLACED O2 5 L/M CANNULA...SAO2 96-97%..NO WORK OF BREATHING...BIPAP ON STANDBY PER ICU PUMP HOUSE OPERATOR...C/O ABDOMINAL AND CHRONIC BACK PAIN...MEDICATED WITH PRN MORPHINE
[2022-10-19 05:33] LABS: VBG Base Excess 17.6 mmol/L; VBG HCO3 43 mmol/L (22-26); VBG pCO2 54 mmHg; VBG pH 7.51 (7.32-7.43); VBG pO2 47 mmHg
[2022-10-19 05:34] LABS: Hematocrit 34.3 % (37.0-47.0); Hemoglobin 11.1 g/dl (12.0-16.0); Mean Corpuscular HGB Conc 32.4 g/dl (31.0-35.0); Mean Corpuscular Hemoglobin 29.1 pg (27.0-33.0); Mean Platelet Volume 11.4 fL (9.4-12.3); Platelet Count 213 X10*3/uL (160-400); Red Blood Count 3.81 X10*6/uL (4.20-5.50); Red Cell Distribution Width 15.1 % (11.0-16.0); Venous Blood Gas Refer to POC result; White Blood Count 15.3 X10*3/uL (4.8-10.8)
[2022-10-19] MEDS: Heparin Sodium,Porcine 5,000 UNIT/ML VIAL 5000 UNIT SUBCUT ×2 (05:37→17:17)
[2022-10-19 05:57] LABS: Anion Gap 17 (12-20); Blood Urea Nitrogen 55 mg/dL (9-16); Calcium 8.3 mg/dL (8.4-10.2); Carbon Dioxide 30 mmol/L (22-29); Chloride 102 mmol/L (96-108); Creatinine Clr Calc Pharmacy 20.3; Estimated Glomerular Filt Rate 20; Glucose Random 101 mg/dL (60-115); Potassium 4.2 mmol/L (3.3-5.1); Sodium 145 mmol/L (135-145)
[2022-10-19 06:01] LABS: Albumin Level 3.5 g/dL (3.5-5.0); Magnesium 2.2 mg/dL (1.6-2.6); Phosphorus 4.1 mg/dL (2.7-4.5)
[2022-10-19 07:29] LABS: Glucose, Whole Blood 99 mg/dL (60-115)
[2022-10-19] MEDS: Metoprolol Succinate ER 25 MG TAB.ER.24H PO (07:48)
[2022-10-19] MEDS: Acetaminophen 325 MG TABLET 650 MG PO ×2 (07:48→14:17)
[2022-10-19] MEDS: amLODIPine Besylate 10 MG TABLET PO (07:49)
[2022-10-19] MEDS: Gabapentin 100 MG CAPSULE 200 MG PO (07:49)
[2022-10-19] MEDS: Albumin Human 25 % 100 ML IV ×3 (10:17→22:37)
--- NOTE | 2022-10-19 11:24 | MHC.CM.PN ---
CM attempted x2 to meet with Patient at bedside but she has not yet arrived to [facility]/room 484. CM phoned /Hesham @ [phone], but he refused to answer any questions and hung up the phone before CM could address IMM. It appears that Patient lives in a house with her and PCP appears to be Dr. Berlin Raymundo. DC plan appears to tentatively be home vs str pending pt eval; CM has initiated and will follow for dc planning.
--- NOTE | 2022-10-19 11:40 | P.PNCA_ITS ---
Subjective Subjective Date of Service: 10/19/22 Interval history: Patient states that she is feeling better. Overnight, it seems that she moved to ICU for respiratory distress. Then switched to Bumex drip. Currently, she states she is okay. Shortness of breath is improved. Review of Systems Review of Systems Yes all other systems are reviewed and are negative Constitutional: Reports as per HPI and Reports no additional constitutional complaints Eyes: Reports as per HPI and Denies no additional eye complaints Denies system reviewed and no additional complaints, except as documented and Reports as per HPI Cardiovascular: Reports as per HPI, Reports no additional cardiovascular complaints, Denies acrocyanosis, Denies cool extremities, Denies chest pain, Denies leg edema, Denies lightheadedness, Denies palpitations and Reports dyspnea Respiratory: Reports as per HPI, Denies no additional respiratory complaints and Reports dyspnea Gastrointestinal: Reports as per HPI and Denies no additional gastrointestinal complaints Genitourinary: Reports as per HPI Musculoskeletal: Reports no additional musculoskeletal complaints and Reports as per HPI Skin/Breast: Reports system reviewed and no additional complaints, except as docu Reports system reviewed and no additional complaints, except as documented and Reports as per HPI Psychiatric: Reports no additional psychiatric complaints and Reports as per HPI Endocrine: Reports no additional endocrine complaints, Reports as per HPI and Denies palpitations Hematologic/Lymphatic: Reports no additional hematologic/lymphatic complaints and Reports as per HPI Allergic/Immunologic: Reports no additional allergic/immunologic complaints and Reports as per HPI Physical Exam Vital Signs: Last Vital Signs Temp 97.5 F 10/19/22 09:00 Pulse 75 10/19/22 10:00 Resp 14 10/19/22 10:00 BP 132/46 L 10/19/22 10:00 Pulse Ox 94 10/19/22 10:00 O2 Del Method Nasal Cannula, Mechanical Ventilation 10/19/22 10:00 O2 Flow Rate 4 10/19/22 10:00 Oxygen Flow Rate 4 10/17/22 08:24 BMI result Body Mass Index 38.5 Const General: comfortable, no acute distress, ill appearing, lethargic and tired appearing Orientation/consciousness: patient oriented x3 and lethargic HEENT Other: Unremarkable Head: Yes normal to inspection Neck Neck: Yes normal visual inspection Chest Chest palpation & inspection: normal inspection of the chest Resp Auscultation: crackles Cardio Palpation: normal PMI Heart sounds: S1 normal heart sound present, S2 normal heart sound present, no gallops, Murmur heart sound present systolic III/ and no rubs GI Palpation (GI): Soft to palpation Back/Spine/Pelvis Other: unremarkable Skin General skin exam: no rashes or lesions noted Neuro General: patient oriented x3 Extrem Other: some hand swelling, but LE ok. The General: Yes normal to inspection Psych Mental Status: mental status grossly normal Objective Labs and Meds 10/19/22 05:24 10/19/22 05:24 Lab results: Laboratory Results - last 24 hr 10/18/22 10/18/22 10/19/22 15:34 19:56 00:23 WBC RBC Hgb Hct MCV MCH MCHC RDW Plt Count MPV Absolute Nucleated RBC Nucleated RBC % (auto) VBG pH 7.45 H VBG pCO2 50 VBG pO2 53 VBG HCO3 35 H VBG O2 Saturation 82.0 VBG Base Excess 10.2 Sodium Potassium Chloride Carbon Dioxide Anion Gap BUN Creatinine Estim Creat Clear Calc Estimated GFR POC Glucose 134 H 132 H Random Glucose Calcium Phosphorus Magnesium Albumin 10/19/22 10/19/22 10/19/22 00:24 05:24 05:24 WBC 15.3 H RBC 3.81 L Hgb 11.1 L Hct 34.3 L MCV 90.0 MCH 29.1 MCHC 32.4 RDW 15.1 Plt Count 213 MPV 11.4 Absolute Nucleated RBC 0.000 Nucleated RBC % (auto) 0.0 VBG pH VBG pCO2 VBG pO2 VBG HCO3 VBG O2 Saturation VBG Base Excess Sodium 144 145 Potassium 4.1 4.2 Chloride 102 102 Carbon Dioxide 32 H 30 H Anion Gap 14 17 BUN 55 H 55 H Creatinine 2.50 H 2.39 H Estim Creat Clear Calc 19.4 20.3 Estimated GFR 19 20 POC Glucose Random Glucose 106 101 Calcium 8.2 L 8.3 L Phosphorus Magnesium Albumin 10/19/22 10/19/22 10/19/22 05:24 05:25 07:26 WBC RBC Hgb Hct MCV MCH MCHC RDW Plt Count MPV Absolute Nucleated RBC Nucleated RBC % (auto) VBG pH 7.51 H VBG pCO2 54 VBG pO2 47 VBG HCO3 43 H VBG O2 Saturation 75.0 VBG Base Excess 17.6 Sodium Potassium Chloride Carbon Dioxide Anion Gap BUN Creatinine Estim Creat Clear Calc Estimated GFR POC Glucose 99 Random Glucose Calcium Phosphorus 4.1 Magnesium 2.2 Albumin 3.5 Imaging Radiologist's impression: Impressions Chest X-Ray 10/18/22 23:43 IMPRESSION: Low lung volumes with bibasilar atelectasis and possible trace left pleural effusion, unchanged. Superimposed consolidation cannot be excluded. Enlarged cardiac silhouette with pulmonary venous congestion. No appreciable pulmonary edema. Progress Note: A&P Assessment and plan (1) Acute on chronic diastolic CHF (congestive heart failure): Status: Acute (2) Acute respiratory failure with hypoxia and hypercapnia: Status: Acute (3) Acute kidney injury superimposed on CKD: Status: Acute Plan High sensitivity troponin 13 and 23. Cardiac BNP is 246 and 355. Creatinine 2. 39. BUN is 55. Events overnight discussed with marine radio installer and servicer. Currently on IV Bumex drip and agree with that. Based on input/output data, she is -3.2 L. Overall, she probably has acute on chronic diastolic heart failure/acute on chronic CKD. We will plan on echocardiogram tomorrow. In a prior study from 2019, she had preserved EF and grade 2 diastolic dysfunction. Once she is total euvolemic, then we can plan on ischemia workup probably as an outpatient. She is fairly frail and has CKD as well which will complicate workup. Will follow up with you. Discussed with Elaine York/. Time Spent With Patient Time: Total time managing care of this patient today 55 minutes. This includes time spent in review of chart, laboratory data, imaging studies, review of telemetry, counseling patient, discussion with hospitalist, marine radio installer and servicer, documentation, coordination of care. Progress Note: Quality Stroke Does the patient have a stroke diagnosis?: No Procedures Date of Service Date of Service: 10/19/22
--- NOTE | 2022-10-19 11:55 | P.EN_ITS ---
Event Note Date of Service: 10/19/22 Event Note: for respiratory failure secondary to CHF. He had increasing respiratory distress overnight and was transferred to ICU and placed on bipap. Transitioned from Lasix drip to Bumex drip with improvement in diuresis as well as oxygen requirements. downgraded back to [facility] this morning. Continue Bumex drip, monitor I's and O's Chan replaced overnight echo pending Cardiology following Time Spent With Patient Time: Total time managing care of this patient today ____ minutes.
[2022-10-19 12:12] LABS: Glucose, Whole Blood 183 mg/dL (60-115)
[2022-10-19] MEDS: Insulin Lispro 100 UNIT/ML 3 ML VIAL SUBCUT ×2 (12:35→21:08)
--- NOTE | 2022-10-19 13:49 | PC.NURSE ---
PT WEANED TO 4L N/C AND SATTING APPROPRIATELY, DESATTING WITH EXERTION IN THE HIGH 80S BUT RECOVERS QUICK. PT CONTINUES TO BE ON BUMEX GTT, GOOD URINE OUPUT. ON TELE, CONTINUES TO BE SR WITH FREQUENT PACS, IN AND OUT OF AFIB WITH BBB, UNCHANGED AND MD AWARE. PLAN TO DOWNDRADE TO MEDTELE PER MD. PT RECEIVED PRN PAIN MEDS PER ORDER FOR BACK PAIN. PT BATHED AND REPOSITIONED EVERY 2 HRS AND NEEDED. FAMILY VISITED AT BEDSIDE, UPDATED WITH PLAN OF CARE AND ALL QUESTIONS ANSWERED. REPORT GIVEN TO RECEIVING RN ON FLOOR WHO WILL CONTINUE TO MONITOR. PT LEFT THE UNIT IN BED WITH STAFF AT APPROXIMATELY 1330.
[2022-10-19 15:48] LABS: Troponin-I High Sensitivity 19.7 ng/L (<3.5-17.0)
--- NOTE | 2022-10-19 15:49 | P.CONNP_ITS ---
History of Present Illness Reason for Consult Consult date: 10/19/22 Chief Complaint Chief complaint: respiratory failure History of Present Illness Narrative: 77-year-old female with CKD presented to the emergency department with shortn ess of breath which has been progressively getting worse with lower extremity edema.? In the emergency department initially her oxygen saturation dropped to 86% on room air and she was placed on nasal cannula and then changed over to OxyMask.? While in nuclear Medicine getting V/Q scan her oxygen saturation was noted to dip into the 70s at which point she briefly lost consciousness.? When she was sat up her oxygen saturation improved and she woke up.? ABG was obtained which showed elevated pCO2 of 55 at which time she was placed on BiPAP.? She was given a dose of IV Bumex for pulmonary edema.? Her serum creatinine was 2.96.? She was admitted to the hospital for further management . Nephrology has been consulted to assist in her clinical care Review of Systems Review of Systems Yes all other systems are reviewed and are negative PMF Past Medical History Medical History (Updated 10/18/22 @ 10:02 by BON Barber) CKD (chronic kidney disease), stage IV Diabetes Diastolic CHF HTN (hypertension) Spinal stenosis Thyroid activity decreased Family History Family History (Updated 10/17/22 @ 16:13 by BON Barber) Other Diabetes Social History Social History Household Members: Spouse Housing: House Do you presently have visiting nurse or other home services: No Alcohol intake: never Patient Tobacco Use Status: Never used Tobacco Smoked in Last 30 Days: No Second Hand Smoke Exposure: No Use of substances other than those prescribed or required for medical reasons: No Currently Displaying Signs/Symptoms of Drug Intoxication Withdrawal: No Have you been hit, kicked, punched, or otherwise hurt by someone within the past year? If so, by whom?: No Do you feel safe in your current relationship?: Yes Is there a partner from a previous relationship who is making you feel unsafe now?: No Are you made to feel afraid or neglected: No Advance Directives: Yes Advance Directives on File: Yes Advance Directives Date on File: 08/22/20 Do you have thoughts of harming others: None Do you have a plan to hurt others: No Plan Recently lost weight without trying: No Eating poorly because of decreased appetite: No Nutrition Risks: No Nutritional Risk Patient : No : No Poor oral hygiene: No service: No Current occupational status: retired Meds Allergies Allergy/AdvReac Type Severity Reaction Status Date / Time levofloxacin [From LEVAQUIN] AdvReac Mild flushed Verified 10/11/22 11:12 Active Medications: Current Medications Acetaminophen (Acetaminophen 325 Mg Tablet) 650 mg PO Q6H PRN PRN Reason: Pain, Mild (Pain Scale 1-3) Last Admin: 10/19/22 14:17 Dose: 650 mg Docusate Sodium (Docusate Sodium 100 Mg Capsule) 100 mg PO DAILY PRN PRN Reason: Constipation Glucose (Glucose Gel 15 Gm Gel..Gram.) 15 gm PO Q15M PRN; Protocol PRN Reason: per Hypoglycemia Standing Ord. Heparin Sodium (Porcine) (Heparin Sodium,Porcine 5,000 Unit/Ml Vial) 5,[address] [facility] Last Admin: 10/19/22 05:37 Dose: 5,000 unit Hydroxyzine HCl (Hydroxyzine Hcl 25 Mg Tablet) 12.5 mg PO Q8H PRN PRN Reason: anxiety Dextrose (D10) 250 mls @ 750 mls/hr IV Q15M PRN; Protocol PRN Reason: per Hypoglycemia Standing Ord. Bumetanide 25 mg/ IV (Miscellaneous Supplies) 100 mls @ 2 mls/hr IVCONT .Q24H [facility] Last Admin: 10/19/22 08:04 Dose: 0.5 mg/hr, 2 mls/hr Albumin Human (Kedbumin 25 %) 100 mls @ 100 mls/hr IV Q6H [facility] Stop: 10/20/22 04:59 Last Infusion: 10/19/22 11:20 Dose: Infused Insulin Human Lispro (Insulin Lispro 100 Unit/Ml 3 Ml Vial) [address] [facility]; Protocol Last Admin: 10/19/22 12:35 Dose: 2 unit Levothyroxine Sodium (Levothyroxine Sodium 50 Mcg Tablet) 50 mcg PO DAILY@0630 [facility] Last Admin: 10/19/22 05:30 Dose: Not Given Morphine Sulfate (Morphine Sulfate 2 Mg/Ml Cartridge) 1 mg IVPUSH Q3H PRN; Protocol PRN Reason: sob Last Admin: 10/19/22 14:57 Dose: 1 mg Omeprazole (Omeprazole 20 Mg Capsule.Dr) 20 mg PO BID@0630,1630 [facility] Last Admin: 10/19/22 05:30 Dose: Not Given Pantoprazole Sodium (Pantoprazole Sodium 40 Mg/10 Ml Vial) 40 mg IVPUSH DAILY@0630 [facility] Sodium Chloride (0.9 % Sodium Chloride Flush 3 Ml Syringe) [address] [facility] Last Admin: 10/19/22 07:48 Dose: Not Given Home Medications Medication Instructions Recorded Confirmed Last Taken Type amlodipine 10 mg tablet 10 mg PO DAILY 10/11/22 10/17/22 Unknown History gabapentin 400 mg capsule 400 mg PO TID 10/11/22 10/17/22 Unknown History glimepiride 4 mg tablet 4 mg PO DAILY 10/11/22 10/17/22 Unknown History levothyroxine 50 mcg tablet 50 mcg PO DAILY 10/11/22 10/17/22 Unknown History metoprolol succinate 25 mg 25 mg PO DAILY 10/11/22 10/17/22 Unknown History tablet,extended release 24 hr oxycodone 10 mg tablet 10 mg PO QID PRN Pain (Scale Score 10/11/22 10/17/22 Unknown History 4-6) pioglitazone 30 mg tablet 30 mg PO DAILY 10/11/22 10/17/22 Unknown History torsemide 20 mg tablet 40 mg PO BID 10/11/22 10/17/22 Unknown History diphenhydramine HCl 25 mg capsule 25 mg DAILY PRN Allergic Symptoms 10/17/22 10/17/22 Unknown History (Benadryl) prednisone 10 mg tablet See Taper PO DAILY 10/17/22 10/17/22 Unknown History Physical Exam Vital Signs: Last Vital Signs Temp 98.6 F 10/19/22 15:07 Pulse 89 10/19/22 15:07 Resp 18 10/19/22 15:07 BP 154/71 H 10/19/22 15:07 Pulse Ox 90 L 10/19/22 15:07 O2 Del Method Oxymask 10/19/22 15:07 O2 Flow Rate 3 10/19/22 15:07 Oxygen Flow Rate 4 10/17/22 08:24 BMI result Body Mass Index 38.5 Const General: cooperative Eyes EOM: EOMs intact bilaterally Resp Auscultation: diminished lung sounds Cardio Rate: regular rate GI Palpation (GI): Soft to palpation Skin General skin exam: no rashes or lesions noted Neuro General: moves all extremities Results Lab Results 10/19/22 05:24 10/19/22 05:24 Lab results: Chemistry 10/17/22 10/18/22 10/19/22 08:45 05:02 00:24 Sodium 138 142 144 Potassium 5.1 4.4 4.1 Carbon Dioxide 26 26 32 H BUN 60 H 60 H 55 H Creatinine 2.96 H 2.55 H 2.50 H Calcium 7.9 L D 7.8 L 8.2 L Phosphorus 10/19/22 10/19/22 05:24 05:24 Sodium 145 Potassium 4.2 Carbon Dioxide 30 H BUN 55 H Creatinine 2.39 H Calcium 8.3 L Phosphorus 4.1 Hematology 10/17/22 10/18/22 10/19/22 08:45 05:02 05:24 WBC 16.8 H 14.8 H 15.3 H Hgb 10.4 L 10.1 L 11.1 L Plt Count 185 176 213 Urinalysis 10/17/22 09:21 Urine Color Yellow Urine Appearance Clear Urine pH 5.5 Ur Specific [place] 1.020 Urine Protein Negative Urine Glucose (UA) Negative Urine Ketones Negative Urine Blood Negative Urine Nitrite Negative Ur Leukocyte Esterase Negative Assessment and Plan (1) Acute kidney injury superimposed on CKD: Status: Acute Plan Has CKD 3b at baseline Currently KEILA due to CRS Hypervolemic- responding to diuresis No ACEI/ARB/NSAID's for now No reason to suspect AIN/GN/Obstructive uropathy Continue current supportive care for now; Labs AM Procedures Date of Service Date of Service: 10/19/22
[2022-10-19 15:51] LABS: Glucose, Whole Blood 152 mg/dL (60-115)
[2022-10-19] MEDS: 0.9 % Sodium Chloride Flush 3 ML SYRINGE IVFLUSH (17:15)
[2022-10-19] MEDS: Pantoprazole Sodium 40 MG/10 ML VIAL IVPUSH (17:15)
[2022-10-19] MEDS: Milk of Magnesia 30 ML ORAL.SUSP 15 ML PO (17:15)
[2022-10-19 20:11] LABS: Glucose, Whole Blood 224 mg/dL (60-115)
--- NOTE | 2022-10-19 23:12 | PC.NURSE ---
pt required more oxygen via oxymask , now she is on 10 liters and setting 88%. pt is c/o sob, RT was notified and DR Pink was notified
--- NOTE | 2022-10-19 23:45 | PM.EVENT ---
Event Note Date of Service: 10/19/22 Event Note: patient with sob, increasing o2 requirements again, crackles, d/w icu, will give 1mg bumex, keep on tele and use nocturnal cpap Time Spent With Patient Time: Total time managing care of this patient today ____ minutes.
[2022-10-19] MEDS: Bumetanide 1 MG/4 ML VIAL IVPUSH (23:53)
--- NOTE | 2022-10-19 23:56 | PC.NURSE ---
Respiratory therapist put CPAP on pt as per DR Joesph verde
[2022-10-20] VITALS (11 sets, daily range): BP systolic 136–148; BP diastolic 60–76; PULSE 70–94; RESP 16–25; TEMP 36.1–36.9; O2SAT 88–97; BMI 38.0
[2022-10-20] MEDS: 0.9 % Sodium Chloride Flush 3 ML SYRINGE IVFLUSH ×3 (00:04→17:52)
[2022-10-20] MEDS: Morphine Sulfate 2 MG/ML CARTRIDGE 1 MG IVPUSH ×4 (01:25→19:48)
[2022-10-20] MEDS: Albumin Human 25 % 100 ML IV (04:32)
[2022-10-20] MEDS: Heparin Sodium,Porcine 5,000 UNIT/ML VIAL 5000 UNIT SUBCUT ×2 (05:57→17:51)
[2022-10-20] MEDS: Pantoprazole Sodium 40 MG/10 ML VIAL IVPUSH (05:58)
--- NOTE | 2022-10-20 07:00 | CA_ITS ---
Transthoracic Echocardiogram Patient (Last, First, Middle): Hannah Alexis, Gender: Female Date of : 1945 Age: 77 Procedure Date: 10/20/2022 Procedure Type: Transthoracic Echocardiogram Location: [facility] [place] Height: 152.4 cm Weight: 88. kg BSA: 1.84 m2 Heart Rate: 81 bpm BP: 145 / 64 mmHg Private Equity Associate: SEMAJ Referring MD: Elaine CROCKETT Symptoms: chf Study Quality: Adequate/Definity ECG Rhythm: Sinus Conclusions: - Normal left ventricular size and systolic function. There is moderately increased left ventricular wall thickness. The visually estimated ejection fraction is between 60-65%. - Elevated filling pressures. - Mildly increased right ventricular cavity size. There is normal right ventricular systolic function. - The left atrium is mildly dilated. The right atrium is mildly dilated. - There is mild aortic valve stenosis. - There is mild to moderate mitral valve regurgitation. - There is moderate tricuspid valve regurgitation. The right ventricular systolic pressure is 70 mmHg. Significantly elevated right atrial pressure. Severe pulmonary hypertension is present. Findings Procedure Information Contrast agent, definity, is being given per protocol without apparent complications. Left Ventricle Normal left ventricular size and systolic function. There is moderately increased left ventricular wall thickness. The visually estimated ejection fraction is between 60-65%. There is no evidence of regional wall motion abnormalities. Abnormal diastolic function is noted. Spectral Doppler is indicative of a pseudonormal filling pattern. Elevated filling pressures. Right Ventricle Mildly increased right ventricular cavity size. There is normal right ventricular systolic function. Atria The left atrium is mildly dilated. The right atrium is mildly dilated. Aortic Valve There is a normal trileaflet aortic valve. There is mild calcification of the aortic valve. There is mild aortic valve stenosis. There is no aortic valve regurgitation. Mitral Valve Normal mitral valve structure and function. There is mild to moderate mitral valve regurgitation. There is no mitral valve stenosis. Pulmonic Valve Normal pulmonic valve structure and function. There is no pulmonic valve regurgitation. Tricuspid Valve Normal tricuspid valve structure. There is moderate tricuspid valve regurgitation. The right ventricular systolic pressure is 70 mmHg. Significantly elevated right atrial pressure. Severe pulmonary hypertension is present. Great Vessels All visible segments of the aorta are normal in size. Venous The inferior vena cava is dilated and collapses less than 50% with inspiration. Pericardium/Pleural Prominent epicardial adipose tissue noted. There is no evidence of pericardial effusion. Measurements 2D Linear Measurements IVSd: 1.20 0.6-0.9/0.6-1.0 cm LVIDd: 4.64 3.9-5.3/4.2-5.9 cm LVIDd Index: 2.52 2.4-3.2/2.2-3.1 cm/m2 LVIDs: 2.29 2.0-3.6 cm LVPWd: 1.23 0.7-1.1 cm LA Diam: 3.90 2.7-3.8/3.0-4.0 cm LAIDs Index: 2.12 1.5-2.3 cm/m2 LV Mass: 263.64 67-162/88-224 g LV Mass Index: 143.28 43-95/49-115 g/m2 LVOT Diam: 1.80 3.0+(-)1.3 cm 2D Systolic Function EF 4C: 53.00 >55% EF 2C: 61.50 >55% EF BiP: 56.90 >55% Mitral Valve MV Pk E: 1.48 MV PK A: 1.19 MV Decel Time: 183.00 E/A: 1.20 E'Lateral: 8.70 E'Medial: 4.79 E/E' Med: 30.90 E/E' Lat: 17.00 PHT: 54.00 MVA PHT: 4.07 Decel Bowman: 8.07 Aortic Valve AoV Pk Gordon: 2.15 AoV Mn Gordon: 1.52 AoV VTI: 0.47 AoV Pk Grad: 18.00 Aov Mn Grad: 10.00 [place]ON Cont.VTI: 1.91 LVOT LVOT Pk Gordon: 1.46 LVOT Mn Gordon: 1.06 LVOT VTI: 0.36 LVOT Pk Grad: 9.00 LVOT Mn Grad: 5.00 LVOT Diam: 1.80 LVOT Area: 2.54 Diastolic Function MV Pk E: 1.48 MV Pk A: 1.19 E/A: 1.20 E'Medial: 4.79 E/E' Med: 30.90 E' Laterial: 8.70 E/E' Lat: 17.00 Right Ventricle TAPSE (mm): 21.70 TVS' Gordon: 11.30 Tricuspid Valve TR Pk Gordon: 3.72 TR Pk Grad: 55.00 RA Press: 15.00 RVSP: 70.00 Great Vessels Aorta Sinus of Valsalva: 2.90 2.0-3.5 cm Ao Asc: 3.10 2.1-3.4 cm Pulmonary Valve PV Pk Gordon: 1.42 Peak PV Grad: 8.00 Updated in Other Vendor System with Status of Final Taye Florez MD electronically signed on 10/20/2022 1:19:47 PM with status of Final
[2022-10-20 07:57] LABS: Glucose, Whole Blood 133 mg/dL (60-115)
--- NOTE | 2022-10-20 08:37 | PC.RT ---
appx 7:15 this am, pt bipap was alarming non stop . I walked in room and pt have ripped off mask and hermouth was full of vomit. No suction cannister available or tubing that goes from the suction to the cannister. Suction was then set up and pt suctioned via mouth. 02 sats were 70% while pt ripped off mask and following sxn. pt was placed on 10 liters oxymask and RN aware. pt sats came up to mid 90 s and no resp distress noted. Will discuss this matter with Director of Med-Tele and supervisor cook room aware as well.
--- NOTE | 2022-10-20 10:48 | P.PNIM_ITS ---
Subjective Subjective Date of Service: 10/20/22 Interval History: seen and examined this morning follow up for sob reporting chest heaviness and shortness of breath continuously Review of Systems Review of Systems: Yes all other systems are reviewed and are negative Constitutional Constitutional: Denies chills and Denies fever(s) Cardiovascular Cardiovascular: Reports chest pain, Denies palpitations and Reports dyspnea Respiratory Respiratory: Denies cough and Reports dyspnea Gastrointestinal Gastrointestinal: Denies abdominal pain, Denies nausea and Denies vomiting Endocrine Endocrine: Denies palpitations Physical Exam Vital Signs: Vital Signs: Last Vital Signs Temp 98.1 F 10/20/22 07:48 Pulse 94 10/20/22 07:48 Resp 18 10/20/22 07:48 BP 148/76 H 10/20/22 07:48 Pulse Ox 95 10/20/22 07:48 O2 Del Method Oxymask 10/20/22 07:48 O2 Flow Rate 10 10/20/22 07:48 FiO2 95 10/20/22 07:48 Oxygen Flow Rate 4 10/17/22 08:24 BMI result Body Mass Index 38.0 Appearing in no acute distress lung sounds are clear to auscultation, clear heart regular rate rhythm, clear S1, S2 positive bowel sounds, abdomen is soft, nontender neuro patient is alert x3, no focal deficits Objective Data Active Medications Acetaminophen (Acetaminophen 325 Mg Tablet) 650 mg PO Q6H PRN PRN Reason: Pain, Mild (Pain Scale 1-3) Last Admin: 10/19/22 14:17 Dose: 650 mg Documented By: JOVANA Docusate Sodium (Docusate Sodium 100 Mg Capsule) 100 mg PO DAILY PRN PRN Reason: Constipation Glucose (Glucose Gel 15 Gm Gel..Gram.) 15 gm PO Q15M PRN; Protocol PRN Reason: per Hypoglycemia Standing Ord. Heparin Sodium (Porcine) (Heparin Sodium,Porcine 5,000 Unit/Ml Vial) 5,000 unit SUBCUT Q12H YADY Last Admin: 10/20/22 05:57 Dose: 5,000 unit Documented By: LENNY Hydroxyzine HCl (Hydroxyzine Hcl 25 Mg Tablet) 12.5 mg PO Q8H PRN PRN Reason: anxiety Dextrose (D10) 250 mls @ 750 mls/hr IV Q15M PRN; Protocol PRN Reason: per Hypoglycemia Standing Ord. Bumetanide 25 mg/ IV (Miscellaneous Supplies) 100 mls @ 2 mls/hr IVCONT .Q24H [facility] Last Admin: 10/19/22 08:04 Dose: 0.5 mg/hr, 2 mls/hr Documented By: LINDA Insulin Human Lispro (Insulin Lispro 100 Unit/Ml 3 Ml Vial) 0 unit SUBCUT QIDACHS [facility]; Protocol Last Admin: 10/20/22 08:20 Dose: Not Given Documented By: BARRY Non-Admin Reason: No Insulin Coverage Isosorbide Mononitrate (Isosorbide Mononitrate 30 Mg Tab.Er.24h) 30 mg PO DAILY [facility]; Protocol Levothyroxine Sodium (Levothyroxine Sodium 50 Mcg Tablet) 50 mcg PO DAILY@0630 [facility] Last Admin: 10/20/22 06:02 Dose: Not Given Documented By: LENNY Non-Admin Reason: Patient Refused Morphine Sulfate (Morphine Sulfate 2 Mg/Ml Cartridge) 1 mg IVPUSH Q3H PRN; Protocol PRN Reason: sob Last Admin: 10/20/22 08:25 Dose: 1 mg Documented By: BARRY Omeprazole (Omeprazole 20 Mg Capsule.Dr) 20 mg PO BID@0630,1630 [facility] Last Admin: 10/20/22 06:02 Dose: Not Given Documented By: LENNY Non-Admin Reason: Patient Refused Pantoprazole Sodium (Pantoprazole Sodium 40 Mg/10 Ml Vial) 40 mg IVPUSH DAILY@ 0630 [facility] Last Admin: 10/20/22 05:58 Dose: 40 mg Documented By: LENNY Sodium Chloride (0.9 % Sodium Chloride Flush 3 Ml Syringe) 3 ml IVFLUSH QSHIFT [facility] Last Admin: 10/20/22 08:26 Dose: 3 ml Documented By: BARRY Labs 10/19/22 05:24 10/19/22 05:24 Labs: Laboratory Results - last 24 hr 10/19/22 10/19/22 10/19/22 12:08 15:00 15:06 POC Glucose 183 H 152 H Troponin I High Sens 19.7 H 10/19/22 10/20/22 20:07 07:51 POC Glucose 224 H 133 H Troponin I High Sens Microbiology Microbiology Results: Microbiology 10/17/22 08:57 Blood Culture - Preliminary Blood - Venous No growth after 48 hours. 10/17/22 08:45 Blood Culture - Preliminary Blood - Venous No growth after 48 hours. Assessment and Plan (1) Acute kidney injury superimposed on CKD: Status: Acute (2) Acute respiratory failure with hypoxia and hypercapnia: Status: Acute (3) Acute on chronic diastolic CHF (congestive heart failure): Status: Acute Plan This is a 77-year-old female with history of HFpEF, T2DM, HTN, CKD 3/4, chronic back/neck pain secondary to spinal stenosis who presents to the emergency department with complaints of shortness of breath found to have acute respiratory failure secondary to CHF Acute respiratory failure with hypoxia / hypercarbia likely secondary to acute on chronic diastolic CHF flu/RSV/covid negative. leukocytosis likely reactive. received empiric abx in ED, will hold off for now on Bumex drip, increased to 1 mg /hr Chan for accurate Is&Os seen by cardiology>increased isosorbide to 60mg daily, metolazone x1 Echocardiogram with EF 60-65% with severe pulmonary hypertension Abdominal pain possible chronic mesenteric ischemia vs acute lung issues causing worsening distress Procalcitonin increased from previous chest CT and abdominal CT pending KEILA on CKD 4 r/t congestion from CHF, should improve with diuresis follow renal function nephrology following Added isosorbide daily Constipation Had bowel movement overnight Continue bowel regimen HTN continue metoprolol, norvasc Morbid obesity BMI 38.8 weight loss encouraged T2DM hold glimepiride, pioglitazone SSI, POCs, ADA diet hypothyroid continue synthroid chronic pain renally dose gabapentin dose due to renal dysfunction initially started on lower dose of baseline oxycodone, pt complaining of pain will increase back to home dose; monitor for sedation gerd continue omeprazole Morbid obesity bmi 38.8 Discussed importance of weight management as this may be contributing to worsening of other comorbidities dvt ppx -heparin code status - Full code attending Dr. Alford patient requires ongoing stay in the hospital for management of respiratory failure, CHF requiring IV diuresis, specialist consultation, close monitoring of respiratory status Time Spent With Patient Time: Total time managing care of this patient today ____ minutes. Quality Stroke Does the patient have a stroke diagnosis?: No VTE Prior VTE?: No VTE Risk Level:: Medical - moderate - high VTE Device Contraindication: N/A - Device Ordered VTE Drug Contraindication: N/A - Med Ordered
--- NOTE | 2022-10-20 10:59 | PM.PNNEP ---
Subjective Subjective Date of Service: 10/20/22 Interval history: seen and examined this morning. Events noted; All recent data reviewed Physical Exam Vital Signs: Vital Signs: Last Vital Signs Temp 98.1 F 10/20/22 07:48 Pulse 94 10/20/22 07:48 Resp 18 10/20/22 07:48 BP 148/76 H 10/20/22 07:48 Pulse Ox 95 10/20/22 07:48 O2 Del Method Oxymask 10/20/22 07:48 O2 Flow Rate 10 10/20/22 07:48 FiO2 95 10/20/22 07:48 Oxygen Flow Rate 4 10/17/22 08:24 BMI result Body Mass Index 38.0 Const: General: cooperative Orientation/consciousness: patient oriented x3 Eyes: EOM: EOMs intact bilaterally Neck: Neck: Yes supple Resp: Auscultation: diminished lung sounds Cardio: Rate: regular rate GI: Palpation (GI): Soft to palpation Neuro: General: patient oriented x3 and moves all extremities Objective Data Labs 10/19/22 05:24 10/19/22 05:24 Labs: Laboratory Results - last 24 hr 10/19/22 10/19/22 10/19/22 12:08 15:00 15:06 POC Glucose 183 H 152 H Troponin I High Sens 19.7 H 10/19/22 10/20/22 20:07 07:51 POC Glucose 224 H 133 H Troponin I High Sens Microbiology Microbiology Results: Microbiology 10/17/22 08:57 Blood - Venous Blood Culture - Preliminary No growth after 48 hours. 10/17/22 08:45 Blood - Venous Blood Culture - Preliminary No growth after 48 hours. Procedures Date of Service Date of Service: 10/20/22 Assessment & Plan Assessment and plan (1) Acute kidney injury superimposed on CKD: Status: Acute Assessment and Plan: Has CKD 3b at baseline Currently KEILA due to CRS Hypervolemic- responding to diuresis- will increase bumex to 1 mg/hr No ACEI/ARB/NSAID's for now; Added Isosrbide 30 mg daily No reason to suspect AIN/GN/Obstructive uropathy ? Has mesentric ischemia- will need contrast imaging but @ risk for YUMIKO Continue rets of current supportive care for now; Labs AM Progress Note: Quality Stroke Does the patient have a stroke diagnosis?: No
[2022-10-20 11:04] LABS: B Type Natriuretic Peptide 1129 pg/mL (<100)
[2022-10-20 11:14] LABS: Anion Gap 17 (12-20); Blood Urea Nitrogen 60 mg/dL (9-16); Calcium 9.1 mg/dL (8.4-10.2); Carbon Dioxide 34 mmol/L (22-29); Chloride 100 mmol/L (96-108); Creatinine Clr Calc Pharmacy 18.7; Estimated Glomerular Filt Rate 18; Glucose Random 126 mg/dL (60-115); Potassium 3.7 mmol/L (3.3-5.1); Sodium 147 mmol/L (135-145)
[2022-10-20 11:23] LABS: Procalcitonin 0.43 ng/mL
[2022-10-20] MEDS: Isosorbide Mononitrate 30 MG TAB.ER.24H PO ×2 (11:41→17:51)
[2022-10-20 11:54] LABS: Glucose, Whole Blood 151 mg/dL (60-115)
--- NOTE | 2022-10-20 13:21 | PM.PNCARD ---
Subjective Subjective Date of Service: 10/20/22 Interval history: Seen and examined at bedside. Complaining of throat discomfort as well as severe epigastric pain. Physical Exam Vital Signs: Last Vital Signs Temp 98.5 F 10/20/22 11:42 Pulse 81 10/20/22 11:42 Resp 18 10/20/22 11:42 BP 147/73 H 10/20/22 11:42 Pulse Ox 88 L 10/20/22 11:42 O2 Del Method Oxymask 10/20/22 11:42 O2 Flow Rate 11 10/20/22 11:42 FiO2 95 10/20/22 07:48 Oxygen Flow Rate 4 10/17/22 08:24 BMI result Body Mass Index 38.0 GENERAL APPEARANCE: Distressed due to pain. Technique. NECK: no carotid bruit, + jugular venous distention. SKIN: no suspicious lesions, warm and dry. HEART: no murmurs, regular rate and rhythm. LUNGS: Crackles at bases. ABDOMEN: soft, tenderness in the epigastrium. No rigidity. EXTREMITIES: + edema. PERIPHERAL PULSES: equal. NEUROLOGIC: No gross deficits, AAO X 3 Objective Labs and Meds 10/19/22 05:24 10/20/22 10:09 Lab results: Laboratory Results - last 24 hr 10/19/22 10/19/22 10/19/22 15:00 15:06 20:07 Sodium Potassium Chloride Carbon Dioxide Anion Gap BUN Creatinine Estim Creat Clear Calc Estimated GFR POC Glucose 152 H 224 H Random Glucose Calcium Troponin I High Sens 19.7 H B-Natriuretic Peptide Procalcitonin 10/20/22 10/20/22 10/20/22 07:51 10:09 10:09 Sodium 147 H Potassium 3.7 Chloride 100 Carbon Dioxide 34 H Anion Gap 17 BUN 60 H Creatinine 2.57 H Estim Creat Clear Calc 18.7 Estimated GFR 18 POC Glucose 133 H Random Glucose 126 H Calcium 9.1 D Troponin I High Sens B-Natriuretic Peptide 1129 H Procalcitonin 0.43 10/20/22 11:46 Sodium Potassium Chloride Carbon Dioxide Anion Gap BUN Creatinine Estim Creat Clear Calc Estimated GFR POC Glucose 151 H Random Glucose Calcium Troponin I High Sens B-Natriuretic Peptide Procalcitonin Imaging Radiologist's impression: Impressions Chest X-Ray 10/19/22 15:20 IMPRESSION: Enlarged cardiac silhouette and pulmonary venous redistribution. Question left base airspace disease. Differential would include asymmetric distribution of pulmonary edema and pneumonia. KUB X-Ray 10/19/22 15:20 IMPRESSION: 1. Nonobstructive bowel gas pattern. 2. Mild to moderate colonic stool burden. Progress Note: A&P Assessment and plan (1) Acute on chronic diastolic CHF (congestive heart failure): Status: Acute Plan [age] year female with acute on chronic diastolic heart failure. Clinically she is in heart failure and overloaded. Continue the Bumex drip. Adding metolazone 5 mg x1. Monitor electrolytes closely. She is complaining of severe epigastric pain and is tender in the epigastrium. She is quite distressed. I think she needs GI input. Start PPI. Appears to be quite sick currently. She is hypoxic and on supplemental oxygen. Her PA pressure was severely elevated on the echocardiogram. Increasing isosorbide to 60 mg once daily. We will follow along with you. Time Spent With Patient Time: Total time managing care of this patient today __30__ minutes. Progress Note: Quality Stroke Does the patient have a stroke diagnosis?: No Procedures Date of Service Date of Service: 10/20/22
--- NOTE | 2022-10-20 13:34 | MHC.CM.PN ---
EMR REVIEWED, PT'S BUMETADINE DRIP INCREASED, PLAN FOR ECCHO AND CHEST CT, NO PLAN FOR D/C AT THIS TIME, CM WILL CONT TO FOLLOW D/C NEEDS.
[2022-10-20] MEDS: LORazepam 2 MG/ML VIAL 0.25 MG IVPUSH (14:35)
--- NOTE | 2022-10-20 15:18 | MHC.SL.SWA ---
Speech Pathologist Impression: Risk of Aspiration Due to: Medically Fragile Poor PO Intake Weak Cough Dysphasia Diet Status: Upgrade Liquid Consistency and Strategies for Safe Swallow: Liquid Intake Recommendation: Thin Liquid Intake Strategies: Small Sips Solid Food Consistency: Dietary Recommendations: Pureed (NDD1) Additional Modifications to Solid Foods: Oral Medication Intake: Crushed with Puree Please contact the pharmacy regarding appropriate crushable or liquid drug formulations that are available whenever modified delivery is recommended. Compensatory Strategies and Precautions to be Taken for Safe Swallow: Sitting Upright (90 deg) Liquids from Straw Small Bites and Sips Alternate Liquids/Solids Rate of Ingestion Change Supervision While Eating and Drinking for Safe Swallow: Total Assistance (1:1) Foods to Avoid: Hard to chew foods, and mixed consistencies (i.e., soups, cereal w/ milk, fruit cups, etc.) Swallowing Recommended Treatments: Compens. Strategy Educat. Recommendation for Speech: Inpatient Speech Therapy Comment: Frequency/Duration: Date Range for Service Req: Timeline to reassess: Senior Business Analyst Clinican/Clinical Fellow: No Supervisory Statement: I have reviewed and agree with the student/clinical fellow's documentation: N/A Speech Language Pathologist: Nino Elizondo M.A., CCC-STUNTMAN
[2022-10-20] MEDS: Bumetanide 25 MG in Container,Empty 0 ML 4 MG IVCONT (15:58)
--- NOTE | 2022-10-20 16:21 | PM.EVENT ---
Event Note Date of Service: 10/20/22 Event Note: GI Consult-History from patient, her 2 sisters at the bedside, and the EMR Imp: Abdominal pain with associated diffuse tenderness on her exam, but without rebound, guarding, or mass. Admitting labs were nonrevealing re: LFT's and lipase, although her WBC count is somewhat elevated. Her EGD and Colonoscopy in 2020 were nonrevealing as well. Her plain KUB was c/w some constipation. Her CT of the abdomen was just done. She has a history of choledocholithiasis removed by ERCP in 2019 as well. Diff dx: Abdominal pain due to constipation and other medical issues. R/O recurrent CBD stone, mesenteric ischemia. Rec: Check follow up labs for the AM. Check CT findings. Continue PPI. If labs and CT are nonrevealing I would then treat her supportively with maintaining a good bowel regimen, diet as tolerated, and observation. D/W patient and her sisters in detail. Thanks. Time Spent With Patient Time: Total time managing care of this patient today ____ minutes.
[2022-10-20 16:35] LABS: Lactic Acid 0.7 mmol/L (0.5-2.0)
--- NOTE | 2022-10-20 16:35 | PM.EVENT ---
Event Note Date of Service: 10/20/22 Event Note: patient calm and sleeping after abd ct. no c/o pain at this time. Time Spent With Patient Time: Total time managing care of this patient today ____ minutes.
[2022-10-20 16:42] LABS: Anion Gap 18 (12-20); Blood Urea Nitrogen 65 mg/dL (9-16); Calcium 8.7 mg/dL (8.4-10.2); Carbon Dioxide 32 mmol/L (22-29); Chloride 99 mmol/L (96-108); Creatinine Clr Calc Pharmacy 17.2; Estimated Glomerular Filt Rate 16; Glucose Random 224 mg/dL (60-115); Sodium 145 mmol/L (135-145)
[2022-10-20 16:58] LABS: Glucose, Whole Blood 207 mg/dL (60-115)
[2022-10-20] MEDS: metOLazone 5 MG TABLET PO (17:51)
[2022-10-20] MEDS: Insulin Lispro 100 UNIT/ML 3 ML VIAL SUBCUT ×2 (17:51→21:32)
[2022-10-20] MEDS: Omeprazole 20 MG CAPSULE.DR PO (17:51)
[2022-10-20] MEDS: Piperacillin Sodium/Tazobactam 4.5 GM in 0.9 % Sodium Chloride 100 ML IV (18:07)
[2022-10-20] MEDS: Doxycycline Hyclate 100 MG in 0.9 % Sodium Chloride 250 ML 166.67 MG IV (19:48)
[2022-10-20 21:17] LABS: Glucose, Whole Blood 221 mg/dL (60-115)
[2022-10-20] MEDS: polyethylene glycoL 3350 17 GM POWD.PACK PO (21:32)
[2022-10-20 23:36] LABS: CDiff Gene PCR POSITIVE (Negative)
[2022-10-21] VITALS (12 sets, daily range): BP systolic 139–177; BP diastolic 65–80; PULSE 66–100; RESP 18–26; TEMP 36.2–36.8; O2SAT 90–98; BMI 36.9
[2022-10-21 00:28] LABS: CDIFF Internal ctrl Dots and bkg OK (V); CDiff Toxin Negative (Negative)
--- NOTE | 2022-10-21 01:57 | CONS_ITS ---
DATE OF SERVICE: 10/20/2022 REASON FOR CONSULTATION: Abdominal pain. HISTORY OF PRESENT ILLNESS: This has been obtained from the patient and her 2 sisters who are at her bedside, as well as from the medical record. The patient is a 77-year-old female, known to me from previous office visits. I last saw her in August 2020, at which time, she was having some upper abdominal pain, reflux, and constipation. Subsequent to that visit, she did undergo an upper endoscopy and colonoscopy. Her colonoscopy was unremarkable other than a small inflammatory polyp. The upper endoscopy revealed only a hiatal hernia and some mild gastritis, but with biopsies negative for H pylori. There was no ulcer disease. She does have a distant history of cholecystectomy and had an episode of choledocholithiasis in November 2019. She had an ERCP and sphincterotomy at that time with removal of the common duct stone with Dr. Kingston. Due to that history and her abdominal pain, she underwent a MRCP in 2020 that was negative for any sign of choledocholithiasis or biliary obstruction. Imaging studies had shown some dilated intrahepatic ducts, but again, there was no sign of any choledocholithiasis on the MRI. I have not seen her since August 2020. She does have multiple medical problems and was brought in here due primarily to shortness of breath. However, she was having some intermittent abdominal pain at home, which is rather diffuse and can be quite severe. She described some nausea, but no vomiting. She has occasional diarrhea, but there has been no report of melena nor hematochezia. There has been no report of jaundice. She has been afebrile here in the hospital. Her appetite has been diminished. She did just return from a CT scan. CURRENT MEDICATIONS: Include acetaminophen, Bumex, Colace, subcu heparin, hydroxyzine p.r.n., insulin, isosorbide, morphine p.r.n., omeprazole 20 mg b.i.d., IV pantoprazole 40 mg daily, and MiraLax. PAST MEDICAL HISTORY: Diabetes mellitus. Hypertension. Sleep apnea. Kidney stones. Colonoscopy and upper endoscopy in 2020 as described above, as well as nonrevealing colonoscopy in 2009 and a nonrevealing upper endoscopy in 2012. Choledocholithiasis as above in 2019 with removal by ERCP. Medical problems also include congestive heart failure, renal insufficiency, spinal stenosis, and hypothyroidism. PAST SURGICAL HISTORY: Include back surgery, cholecystectomy, and tubal ligation. PAST SOCIAL HISTORY: She lives with her sisters. She does not smoke nor use any alcohol. FAMILY HISTORY: Noncontributory. REVIEW OF SYSTEMS: CONSTITUTIONAL: She has been feeling anorectic and somewhat weak at home. SKIN: Without rash. No pruritus. CARDIAC: No chest pain. PULMONARY: No coughing or hemoptysis. GI: As above. URINARY: No reported dysuria, no hematuria. NEUROLOGIC: No headache or seizures. PSYCHIATRIC: Negative. PHYSICAL EXAMINATION: GENERAL: The patient is an elderly, alert female with a CPAP mask on and resting comfortably. SKIN: Warm and dry. Anicteric sclerae. Moist mucous membranes. NECK: Supple without lymphadenopathy. CHEST: Reveals diminished breath sounds bilaterally. CARDIAC: Normal S1 and S2. ABDOMEN: Soft, normal bowel sounds and nondistended. However, there is some tenderness diffusely, which seems to be quite superficial in nature. There was no palpable mass. EXTREMITIES: No edema. NEUROLOGIC: She seems to be alert and answers some questions appropriately. LABORATORY DATA: White blood cell count 15.3 yesterday, 14.8 the day before. Hemoglobin 11.1, MCV 90, platelets 230,000. PT 11.6 with INR 1.0. Sodium 147, potassium 3.7, chloride 100, CO2 of 34, BUN 60, creatinine 2.6, glucose 126, calcium 9.1. Her labs on October 17 showed incompletely normal liver profile except for an alk phos of 119. Lipase was normal at 17, albumin 3.7. COVID was negative. Abdominal x-ray from October 19 described some evidence of constipation but without any sign of bowel obstruction nor free air. A chest x-ray from today showed some CHF appearing slightly increased from yesterday's exam. CT of the chest and abdomen were done but are currently pending as far as the report is concerned. IMPRESSION: Given the patient's clinical history, as well as her previous workup in 2020, her current abdominal complaints may be related to some component of constipation and tenderness on that basis. She does not appear to be toxic from a GI standpoint. Her normal LFTs and lipase from several days ago would tend to go against any type of acute pancreatitis or biliary process. I doubt this represents peptic ulcer disease given the location of her pain rather diffusely and some tenderness. At this point, it will be important to check the results of her CT scan. Assuming that it does not show any significant abnormalities, I would treat things supportively with being sure that her bowel movements are regular and she does not become more constipated. If the CT scan is suggestive of some biliary disease such as a recurrent common duct stone, she may then need either MRCP for further confirmation or ERCP for therapeutic relief. I shall order laboratories for the morning including repeat LFTs and lipase. This has been discussed with the patient and her family. They are comfortable with this plan. Thank you for this consultation. MD BRYAN Worthington/VANESSA / [id number] MTDD
[2022-10-21] MEDS: Levothyroxine Sodium 50 MCG TABLET PO (06:22)
[2022-10-21] MEDS: Omeprazole 20 MG CAPSULE.DR PO ×2 (06:22→16:29)
[2022-10-21] MEDS: Piperacillin Sodium/Tazobactam 4.5 GM in 0.9 % Sodium Chloride 100 ML IV ×2 (06:22→21:15)
[2022-10-21] MEDS: Heparin Sodium,Porcine 5,000 UNIT/ML VIAL 5000 UNIT SUBCUT ×2 (06:22→18:35)
[2022-10-21] MEDS: Pantoprazole Sodium 40 MG/10 ML VIAL IVPUSH (06:22)
[2022-10-21 07:33] LABS: Glucose, Whole Blood 132 mg/dL (60-115)
[2022-10-21 07:43] LABS: MANUAL DIFF FLAG NO
[2022-10-21 07:50] LABS: Basophils Percent Auto 0.3 % (0-2); Eosinophils Absolute Auto 0.2 X10*3/uL (0.0-0.4); Eosinophils Percent Auto 1.7 % (0-4); Hematocrit 29.7 % (37.0-47.0); Hemoglobin 9.6 g/dl (12.0-16.0); Imm Gran Abs Auto 0.06 X10*3/uL (0.00-0.03); Imm Gran Pct Auto 0.4 % (0.0-0.4); Mean Corpuscular HGB Conc 32.3 g/dl (31.0-35.0); Mean Corpuscular Hemoglobin 29.8 pg (27.0-33.0); Mean Corpuscular Volume 92.2 fL (80.0-98.0); Mean Platelet Volume 11.5 fL (9.4-12.3); Monocytes Absolute Auto 1.1 X10*3/uL (0.1-1.2); Monocytes Percent Auto 7.8 % (2-11); Neutrophils Absolute Auto 11.6 x10*3/uL (2.0-8.3); Neutrophils Percent Auto 82.8 % (45-73); Platelet Count 228 X10*3/uL (160-400); Red Blood Count 3.22 X10*6/uL (4.20-5.50); Red Cell Distribution Width 14.6 % (11.0-16.0)
[2022-10-21 07:54] LABS: ABG Base Excess 7.4 mmol/L; ABG HCO3 33 mmol/L (22-26); ABG pCO2 52 mmHg (32-45); ABG pO2 89 mmHg (83-108)
[2022-10-21] MEDS: Doxycycline Hyclate 100 MG in 0.9 % Sodium Chloride 250 ML 166.67 MG IV ×2 (07:57→18:34)
[2022-10-21 07:59] LABS: Lactic Acid 0.6 mmol/L (0.5-2.0)
--- NOTE | 2022-10-21 08:44 | PM.CNGS ---
History of Present Illness Consult details Consult date: 10/21/22 Narrative: Patient evaluated for nonspecific upper abdominal pain. She claims that she has had this pain for many weeks time. It comes and goes it is unrelated to meals. She had a bowel movement yesterday, which she thinks was loose.. She is not hungry. Her shortness of breath persists. Very poor historian. Chart was reviewed and patient evaluated. Patient has a plethora of comorbidities and inter- current medical problems. Patient is status post cholecystectomy as well as ERCP and the past. White blood cell count 14 PMFSH Past Medical History Medical History (Updated 10/21/22 @ 08:48 by Easton Hartley MD) CKD (chronic kidney disease), stage IV Diabetes Diastolic CHF HTN (hypertension) Spinal stenosis Thyroid activity decreased Family History Family History (Updated 10/17/22 @ 16:13 by BON Barber) Other Diabetes Social History Social History Household Members: Spouse Housing: House Do you presently have visiting nurse or other home services: No Alcohol intake: never Patient Tobacco Use Status: Never used Tobacco Smoked in Last 30 Days: No Second Hand Smoke Exposure: No Use of substances other than those prescribed or required for medical reasons: No Currently Displaying Signs/Symptoms of Drug Intoxication Withdrawal: No Have you been hit, kicked, punched, or otherwise hurt by someone within the past year? If so, by whom?: No Do you feel safe in your current relationship?: Yes Is there a partner from a previous relationship who is making you feel unsafe now?: No Are you made to feel afraid or neglected: No Advance Directives: Yes Advance Directives on File: Yes Advance Directives Date on File: 08/22/20 Do you have thoughts of harming others: None Do you have a plan to hurt others: No Plan Recently lost weight without trying: No Eating poorly because of decreased appetite: No Nutrition Risks: No Nutritional Risk Patient : No : No Poor oral hygiene: No service: No Current occupational status: retired Meds Allergies Allergy/AdvReac Type Severity Reaction Status Date / Time levofloxacin [From LEVAQUIN] AdvReac Mild flushed Verified 10/11/22 11:12 Active Medications: Current Medications Acetaminophen (Acetaminophen 325 Mg Tablet) 650 mg PO Q6H PRN PRN Reason: Pain, Mild (Pain Scale 1-3) Last Admin: 10/19/22 14:17 Dose: 650 mg Docusate Sodium (Docusate Sodium 100 Mg Capsule) 100 mg PO DAILY PRN PRN Reason: Constipation Glucose (Glucose Gel 15 Gm Gel..Gram.) 15 gm PO Q15M PRN; Protocol PRN Reason: per Hypoglycemia Standing Ord. Heparin Sodium (Porcine) (Heparin Sodium,Porcine 5,000 Unit/Ml Vial) 5,000 unit SUBCUT Q12H [facility] Last Admin: 10/21/22 06:22 Dose: 5,000 unit Hydroxyzine HCl (Hydroxyzine Hcl 25 Mg Tablet) 12.5 mg PO Q8H PRN PRN Reason: anxiety Dextrose (D10) 250 mls @ 750 mls/hr IV Q15M PRN; Protocol PRN Reason: per Hypoglycemia Standing Ord. Bumetanide 25 mg/ IV (Miscellaneous Supplies) 100 mls @ 4 mls/hr IVCONT .Q24H [facility] Last Admin: 10/20/22 15:58 Dose: 1 mg/hr, 4 mls/hr Piperacillin Sod/Tazobactam (Sod 4.5 gm/ Sodium Chloride) 100 mls @ 200 mls/hr IV Q12H [facility] Last Infusion: 10/21/22 08:03 Dose: Infused Doxycycline Hyclate 100 mg/ (Sodium Chloride) 250 mls @ 166.67 mls/hr IV Q12H [facility] Last Admin: 10/21/22 07:57 Dose: 166.67 mls/hr Insulin Human Lispro (Insulin Lispro 100 Unit/Ml 3 Ml Vial) 0 unit SUBCUT QIDACHS [facility]; Protocol Last Admin: 10/21/22 07:39 Dose: Not Given Isosorbide Mononitrate (Isosorbide Mononitrate 60 Mg Tab.Er.24h) 60 mg PO DAILY [facility]; Protocol Levothyroxine Sodium (Levothyroxine Sodium 50 Mcg Tablet) 50 mcg PO DAILY@0630 [facility] Last Admin: 10/21/22 06:22 Dose: 50 mcg Lorazepam (Lorazepam 2 Mg/Ml Vial) 0.25 mg IVPUSH Q6H PRN PRN Reason: anxiety Morphine Sulfate (Morphine Sulfate 2 Mg/Ml Cartridge) 1 mg IVPUSH Q3H PRN; Protocol PRN Reason: sob Last Admin: 10/20/22 19:48 Dose: 1 mg Omeprazole (Omeprazole 20 Mg Capsule.Dr) 20 mg PO BID@0630,1630 [facility] Last Admin: 10/21/22 06:22 Dose: 20 mg Ondansetron HCl (Ondansetron Hcl 4 Mg/2 Ml Vial) 4 mg IVPUSH Q6H PRN PRN Reason: Nausea and Vomiting Pantoprazole Sodium (Pantoprazole Sodium 40 Mg/10 Ml Vial) 40 mg IVPUSH DAILY@0630 [facility] Last Admin: 10/21/22 06:22 Dose: 40 mg Polyethylene Glycol (Polyethylene Glycol 3350 17 Gm Powd.Pack) 17 gm PO BID [facility] Last Admin: 10/20/22 21:32 Dose: 17 gm Sodium Chloride (0.9 % Sodium Chloride Flush 3 Ml Syringe) 3 [facility] Last Admin: 10/20/22 21:54 Dose: Not Given Home Medications Medication Instructions Recorded Confirmed Last Taken Type amlodipine 10 mg tablet 10 mg PO DAILY 10/11/22 10/17/22 Unknown History gabapentin 400 mg capsule 400 mg PO TID 10/11/22 10/17/22 Unknown History glimepiride 4 mg tablet 4 mg PO DAILY 10/11/22 10/17/22 Unknown History levothyroxine 50 mcg tablet 50 mcg PO DAILY 10/11/22 10/17/22 Unknown History metoprolol succinate 25 mg 25 mg PO DAILY 10/11/22 10/17/22 Unknown History tablet,extended release 24 hr oxycodone 10 mg tablet 10 mg PO QID PRN Pain (Scale Score 10/11/22 10/17/22 Unknown History 4-6) pioglitazone 30 mg tablet 30 mg PO DAILY 10/11/22 10/17/22 Unknown History torsemide 20 mg tablet 40 mg PO BID 10/11/22 10/17/22 Unknown History diphenhydramine HCl 25 mg capsule 25 mg DAILY PRN Allergic Symptoms 10/17/22 10/17/22 Unknown History (Benadryl) prednisone 10 mg tablet See Taper PO DAILY 10/17/22 10/17/22 Unknown History Physical Exam Vital Signs: Vital Signs: Last Vital Signs Temp 97.4 F 10/21/22 07:23 Pulse 71 10/21/22 07:23 Resp 20 10/21/22 07:23 BP 177/74 H 10/21/22 07:23 Pulse Ox 95 10/21/22 07:23 O2 Del Method Oxymask 10/21/22 07:23 O2 Flow Rate 11 10/21/22 07:23 FiO2 40 10/21/22 03:44 Oxygen Flow Rate 4 10/17/22 08:24 BMI result Body Mass Index 36.9 GI: Other: Corpulent soft abdomen. Epigastric tenderness. No evidence and any guarding, rebound or rigidity. CT scan and ultrasound; minimal findings Results Labs 10/21/22 07:36 10/20/22 16:18 Labs: Abnormal lab results 10/20/22 10/20/22 10/20/22 Range/Units 10:09 10:09 11:46 WBC (4.8-10.8) X10*3/uL RBC (4.20-5.50) X10*6/uL Hgb (12.0-16.0) g/dl Hct (37.0-47.0) % Neut % (Auto) (45-73) % Lymph % (Auto) (20-40) % Lymph # (Auto) (1.2-4.9) X10*3/uL Abs Immat Gran (auto) (0.00-0.03) X10*3/uL Absolute Neuts (auto) (2.0-8.3) x10*3/uL ABG pCO2 at Pt Temp (32-45) mmHg ABG HCO3 (22-26) mmol/L Sodium 147 H (135-145) mmol/L Carbon Dioxide 34 H (22-29) mmol/L BUN 60 H (9-16) mg/dL Creatinine 2.57 H (0.5-1.4) mg/dL POC Glucose 151 H (60-115) mg/dL Random Glucose 126 H (60-115) mg/dL B-Natriuretic Peptide 1129 H (<100) pg/mL C. difficile Tox B Gene (Negative) 10/20/22 10/20/22 10/20/22 Range/Units 16:18 16:27 21:12 WBC (4.8-10.8) X10*3/uL RBC (4.20-5.50) X10*6/uL Hgb (12.0-16.0) g/dl Hct (37.0-47.0) % Neut % (Auto) (45-73) % Lymph % (Auto) (20-40) % Lymph # (Auto) (1.2-4.9) X10*3/uL Abs Immat Gran (auto) (0.00-0.03) X10*3/uL Absolute Neuts (auto) (2.0-8.3) x10*3/uL ABG pCO2 at Pt Temp (32-45) mmHg ABG HCO3 (22-26) mmol/L Sodium (135-145) mmol/L Carbon Dioxide 32 H (22-29) mmol/L BUN 65 H (9-16) mg/dL Creatinine 2.80 H (0.5-1.4) mg/dL POC Glucose 207 H 221 H (60-115) mg/dL Random Glucose 224 H (60-115) mg/dL B-Natriuretic Peptide (<100) pg/mL C. difficile Tox B Gene (Negative) 10/20/22 10/21/22 10/21/22 Range/Units 22:17 07:29 07:36 WBC 14.0 H (4.8-10.8) X10*3/uL RBC 3.22 L (4.20-5.50) X10*6/uL Hgb 9.6 L (12.0-16.0) g/dl Hct 29.7 L (37.0-47.0) % Neut % (Auto) 82.8 H (45-73) % Lymph % (Auto) 7.0 L (20-40) % Lymph # (Auto) 1.0 L (1.2-4.9) X10*3/uL Abs Immat Gran (auto) 0.06 H (0.00-0.03) X10*3/uL Absolute Neuts (auto) 11.6 H (2.0-8.3) x10*3/uL ABG pCO2 at Pt Temp (32-45) mmHg ABG HCO3 (22-26) mmol/L Sodium (135-145) mmol/L Carbon Dioxide (22-29) mmol/L BUN (9-16) mg/dL Creatinine (0.5-1.4) mg/dL POC Glucose 132 H (60-115) mg/dL Random Glucose (60-115) mg/dL B-Natriuretic Peptide (<100) pg/mL C. difficile Tox B Gene POSITIVE A* (Negative) 10/21/22 Range/Units 07:47 WBC (4.8-10.8) X10*3/uL RBC (4.20-5.50) X10*6/uL Hgb (12.0-16.0) g/dl Hct (37.0-47.0) % Neut % (Auto) (45-73) % Lymph % (Auto) (20-40) % Lymph # (Auto) (1.2-4.9) X10*3/uL Abs Immat Gran (auto) (0.00-0.03) X10*3/uL Absolute Neuts (auto) (2.0-8.3) x10*3/uL ABG pCO2 at Pt Temp 52 H (32-45) mmHg ABG HCO3 33 H (22-26) mmol/L Sodium (135-145) mmol/L Carbon Dioxide (22-29) mmol/L BUN (9-16) mg/dL Creatinine (0.5-1.4) mg/dL POC Glucose (60-115) mg/dL Random Glucose (60-115) mg/dL B-Natriuretic Peptide (<100) pg/mL C. difficile Tox B Gene (Negative) Short CBC 10/21/22 Range/Units 07:36 WBC 14.0 H (4.8-10.8) X10*3/uL Hgb 9.6 L (12.0-16.0) g/dl Hct 29.7 L (37.0-47.0) % Plt Count 228 (160-400) X10*3/uL BMP 10/20/22 10/20/22 10:09 16:18 Sodium 147 H 145 Potassium 3.7 4.0 Chloride 100 99 Carbon Dioxide 34 H 32 H BUN 60 H 65 H Creatinine 2.57 H 2.80 H Calcium 9.1 D 8.7 Urine 10/17/22 Range/Units 09:21 Urine Color Yellow Urine Appearance Clear Urine pH 5.5 (5.0-9.0) Ur Specific [place] 1.020 (1.005-1.025) Urine Protein Negative (Neg-Trace) mg/dL Urine Glucose (UA) Negative (Negative) mg/dL All other labs normal. Assessment and Plan (1) Epigastric abdominal pain: Status: Acute Plan Abdominal pain of ill-defined etiology. Patient is a very extremely poor operative candidate should that eventually be warranted. Current plan is to continue conservative therapy will serial exams and labs. Agree with GI evaluation. Further interventions will be directed by the patient's clinical course. Time Spent With Patient Time: Total time managing care of this patient today ____ minutes. Procedures Date of Service Date of Service: 10/21/22
[2022-10-21 09:06] LABS: Alanine Aminotransferase 10 U/L (0-31); Alkaline Phosphatase 89 U/L (39-117); Amylase 36 U/L (28-100); Aspartate Amino Transferase 14 U/L (5-31); Bilirubin Direct 0.2 mg/dL (0.0-0.5); Bilirubin Total 0.6 mg/dL (0.0-1.0); Lipase 22 U/L (8-78); Total Protein 6.5 g/dL (6.5-8.0)
[2022-10-21] MEDS: Isosorbide Mononitrate 60 MG TAB.ER.24H PO (09:21)
[2022-10-21] MEDS: Morphine Sulfate 2 MG/ML CARTRIDGE 1 MG IVPUSH ×4 (09:41→21:18)
[2022-10-21 10:17] LABS: ABG Refer to POC result
--- NOTE | 2022-10-21 11:39 | PM.PNNEP ---
Subjective Subjective Date of Service: 10/21/22 Interval history: Events noted; All recent data reviewed; On CPAP Physical Exam Vital Signs: Vital Signs: Last Vital Signs Temp 97.3 F 10/21/22 11:26 Pulse 73 10/21/22 11:26 Resp 18 10/21/22 11:26 BP 145/66 H 10/21/22 11:26 Pulse Ox 95 10/21/22 11:26 O2 Del Method CPAP 10/21/22 11:26 O2 Flow Rate 22 10/21/22 11:26 FiO2 99 10/21/22 11:26 Oxygen Flow Rate 4 10/17/22 08:24 BMI result Body Mass Index 36.9 Const: General: no acute distress Eyes: EOM: EOMs intact bilaterally Resp: Auscultation: diminished lung sounds Cardio: Rate: regular rate GI: Palpation (GI): Soft to palpation Neuro: General: moves all extremities Objective Data Labs 10/21/22 07:36 10/20/22 16:18 Labs: Laboratory Results - last 24 hr 10/20/22 10/20/22 10/20/22 11:46 16:18 16:18 WBC RBC Hgb Hct MCV MCH MCHC RDW Plt Count MPV Immature Gran % (Auto) Neut % (Auto) Lymph % (Auto) [place] % (Auto) Eos % (Auto) Baso % (Auto) Lymph # (Auto) [place] # (Auto) Eos # (Auto) Baso # (Auto) Abs Immat Gran (auto) Absolute Neuts (auto) Absolute Nucleated RBC Nucleated RBC % (auto) O2 Saturation ABG pH at Pt Temp ABG pCO2 at Pt Temp ABG pO2 at Pt Temp ABG HCO3 ABG Base Excess (Actual) Sodium 145 Potassium 4.0 Chloride 99 Carbon Dioxide 32 H Anion Gap 18 BUN 65 H Creatinine 2.80 H Estim Creat Clear Calc 17.2 Estimated GFR 16 POC Glucose 151 H Random Glucose 224 H Lactic Acid 0.7 Calcium 8.7 Total Bilirubin Direct Bilirubin AST ALT Alkaline Phosphatase Total Protein Albumin Amylase Lipase C. difficile Tox B Gene C. difficile Toxin A&B C. difficile Interpret 10/20/22 10/20/22 10/20/22 16:27 21:12 22:17 WBC RBC Hgb Hct MCV MCH MCHC RDW Plt Count MPV Immature Gran % (Auto) Neut % (Auto) Lymph % (Auto) [place] % (Auto) Eos % (Auto) Baso % (Auto) Lymph # (Auto) [place] # (Auto) Eos # (Auto) Baso # (Auto) Abs Immat Gran (auto) Absolute Neuts (auto) Absolute Nucleated RBC Nucleated RBC % (auto) O2 Saturation ABG pH at Pt Temp ABG pCO2 at Pt Temp ABG pO2 at Pt Temp ABG HCO3 ABG Base Excess (Actual) Sodium Potassium Chloride Carbon Dioxide Anion Gap BUN Creatinine Estim Creat Clear Calc Estimated GFR POC Glucose 207 H 221 H Random Glucose Lactic Acid Calcium Total Bilirubin Direct Bilirubin AST ALT Alkaline Phosphatase Total Protein Albumin Amylase Lipase C. difficile Tox B Gene POSITIVE A* C. difficile Toxin A&B Negative C. difficile Interpret SEE NOTE 10/21/22 10/21/22 10/21/22 07:29 07:36 07:36 WBC 14.0 H RBC 3.22 L Hgb 9.6 L Hct 29.7 L MCV 92.2 MCH 29.8 MCHC 32.3 RDW 14.6 Plt Count 228 MPV 11.5 Immature Gran % (Auto) 0.4 Neut % (Auto) 82.8 H Lymph % (Auto) 7.0 L [place] % (Auto) 7.8 Eos % (Auto) 1.7 Baso % (Auto) 0.3 Lymph # (Auto) 1.0 L [place] # (Auto) 1.1 Eos # (Auto) 0.2 Baso # (Auto) 0.0 Abs Immat Gran (auto) 0.06 H Absolute Neuts (auto) 11.6 H Absolute Nucleated RBC 0.000 Nucleated RBC % (auto) 0.0 O2 Saturation ABG pH at Pt Temp ABG pCO2 at Pt Temp ABG pO2 at Pt Temp ABG HCO3 ABG Base Excess (Actual) Sodium Potassium Chloride Carbon Dioxide Anion Gap BUN Creatinine Estim Creat Clear Calc Estimated GFR POC Glucose 132 H Random Glucose Lactic Acid Calcium Total Bilirubin 0.6 Direct Bilirubin 0.2 AST 14 ALT 10 Alkaline Phosphatase 89 Total Protein 6.5 Albumin 4.0 Amylase 36 Lipase 22 C. difficile Tox B Gene C. difficile Toxin A&B C. difficile Interpret 10/21/22 10/21/22 07:36 07:47 WBC RBC Hgb Hct MCV MCH MCHC RDW Plt Count MPV Immature Gran % (Auto) Neut % (Auto) Lymph % (Auto) [place] % (Auto) Eos % (Auto) Baso % (Auto) Lymph # (Auto) [place] # (Auto) Eos # (Auto) Baso # (Auto) Abs Immat Gran (auto) Absolute Neuts (auto) Absolute Nucleated RBC Nucleated RBC % (auto) O2 Saturation 96.0 ABG pH at Pt Temp 7.40 ABG pCO2 at Pt Temp 52 H ABG pO2 at Pt Temp 89 ABG HCO3 33 H ABG Base Excess (Actual) 7.4 Sodium Potassium Chloride Carbon Dioxide Anion Gap BUN Creatinine Estim Creat Clear Calc Estimated GFR POC Glucose Random Glucose Lactic Acid 0.6 Calcium Total Bilirubin Direct Bilirubin AST ALT Alkaline Phosphatase Total Protein Albumin Amylase Lipase C. difficile Tox B Gene C. difficile Toxin A&B C. difficile Interpret Microbiology Microbiology Results: Microbiology 10/17/22 08:57 Blood - Venous Blood Culture - Preliminary No growth after 48 hours. 10/17/22 08:45 Blood - Venous Blood Culture - Preliminary No growth after 48 hours. Procedures Date of Service Date of Service: 10/21/22 Assessment & Plan Assessment and plan (1) Acute kidney injury superimposed on CKD: Status: Acute Assessment and Plan: Has CKD 3b at baseline; Currently KEILA due to CRS/PNA Hypervolemic- responding to diuresis No ACEI/ARB/NSAID's for now No reason to suspect AIN/GN/Obstructive uropathy Continue rest of current supportive care for now; Labs AM Progress Note: Quality Stroke Does the patient have a stroke diagnosis?: No
[2022-10-21 11:48] LABS: Glucose, Whole Blood 171 mg/dL (60-115)
--- NOTE | 2022-10-21 12:42 | P.PNCA_ITS ---
Subjective Subjective Date of Service: 10/21/22 Interval history: Seen examined at bedside. On CPAP and feeling better. Continues to have abdominal pain and tenderness. GI is following her. Telemetry is showing that she has been in and out of atrial fibrillation. Physical Exam Vital Signs: Last Vital Signs Temp 97.3 F 10/21/22 11:26 Pulse 73 10/21/22 11:26 Resp 18 10/21/22 11:26 BP 145/66 H 10/21/22 11:26 Pulse Ox 95 10/21/22 11:26 O2 Del Method CPAP 10/21/22 11:26 O2 Flow Rate 22 10/21/22 11:26 FiO2 99 10/21/22 11:26 Oxygen Flow Rate 4 10/17/22 08:24 BMI result Body Mass Index 36.9 GENERAL APPEARANCE: Comfortable. On CPAP. NECK: no carotid bruit, + jugular venous distention. SKIN: no suspicious lesions, warm and dry. HEART: no murmurs, regular rate and rhythm. LUNGS: Crackles at bases. ABDOMEN: soft, tenderness in the epigastrium. No rigidity. EXTREMITIES: + edema. PERIPHERAL PULSES: equal. NEUROLOGIC: No gross deficits, AAO X 3 Objective Labs and Meds 10/21/22 07:36 10/20/22 16:18 Lab results: Laboratory Results - last 24 hr 10/20/22 10/20/22 10/20/22 16:18 16:18 16:27 WBC RBC Hgb Hct MCV MCH MCHC RDW Plt Count MPV Immature Gran % (Auto) Neut % (Auto) Lymph % (Auto) [place] % (Auto) Eos % (Auto) Baso % (Auto) Lymph # (Auto) [place] # (Auto) Eos # (Auto) Baso # (Auto) Abs Immat Gran (auto) Absolute Neuts (auto) Absolute Nucleated RBC Nucleated RBC % (auto) O2 Saturation ABG pH at Pt Temp ABG pCO2 at Pt Temp ABG pO2 at Pt Temp ABG HCO3 ABG Base Excess (Actual) Sodium 145 Potassium 4.0 Chloride 99 Carbon Dioxide 32 H Anion Gap 18 BUN 65 H Creatinine 2.80 H Estim Creat Clear Calc 17.2 Estimated GFR 16 POC Glucose 207 H Random Glucose 224 H Lactic Acid 0.7 Calcium 8.7 Total Bilirubin Direct Bilirubin AST ALT Alkaline Phosphatase Total Protein Albumin Amylase Lipase C. difficile Tox B Gene C. difficile Toxin A&B C. difficile Interpret 10/20/22 10/20/22 10/21/22 21:12 22:17 07:29 WBC RBC Hgb Hct MCV MCH MCHC RDW Plt Count MPV Immature Gran % (Auto) Neut % (Auto) Lymph % (Auto) [place] % (Auto) Eos % (Auto) Baso % (Auto) Lymph # (Auto) [place] # (Auto) Eos # (Auto) Baso # (Auto) Abs Immat Gran (auto) Absolute Neuts (auto) Absolute Nucleated RBC Nucleated RBC % (auto) O2 Saturation ABG pH at Pt Temp ABG pCO2 at Pt Temp ABG pO2 at Pt Temp ABG HCO3 ABG Base Excess (Actual) Sodium Potassium Chloride Carbon Dioxide Anion Gap BUN Creatinine Estim Creat Clear Calc Estimated GFR POC Glucose 221 H 132 H Random Glucose Lactic Acid Calcium Total Bilirubin Direct Bilirubin AST ALT Alkaline Phosphatase Total Protein Albumin Amylase Lipase C. difficile Tox B Gene POSITIVE A* C. difficile Toxin A&B Negative C. difficile Interpret SEE NOTE 10/21/22 10/21/22 10/21/22 07:36 07:36 07:36 WBC 14.0 H RBC 3.22 L Hgb 9.6 L Hct 29.7 L MCV 92.2 MCH 29.8 MCHC 32.3 RDW 14.6 Plt Count 228 MPV 11.5 Immature Gran % (Auto) 0.4 Neut % (Auto) 82.8 H Lymph % (Auto) 7.0 L [place] % (Auto) 7.8 Eos % (Auto) 1.7 Baso % (Auto) 0.3 Lymph # (Auto) 1.0 L [place] # (Auto) 1.1 Eos # (Auto) 0.2 Baso # (Auto) 0.0 Abs Immat Gran (auto) 0.06 H Absolute Neuts (auto) 11.6 H Absolute Nucleated RBC 0.000 Nucleated RBC % (auto) 0.0 O2 Saturation ABG pH at Pt Temp ABG pCO2 at Pt Temp ABG pO2 at Pt Temp ABG HCO3 ABG Base Excess (Actual) Sodium Potassium Chloride Carbon Dioxide Anion Gap BUN Creatinine Estim Creat Clear Calc Estimated GFR POC Glucose Random Glucose Lactic Acid 0.6 Calcium Total Bilirubin 0.6 Direct Bilirubin 0.2 AST 14 ALT 10 Alkaline Phosphatase 89 Total Protein 6.5 Albumin 4.0 Amylase 36 Lipase 22 C. difficile Tox B Gene C. difficile Toxin A&B C. difficile Interpret 10/21/22 10/21/22 07:47 11:45 WBC RBC Hgb Hct MCV MCH MCHC RDW Plt Count MPV Immature Gran % (Auto) Neut % (Auto) Lymph % (Auto) [place] % (Auto) Eos % (Auto) Baso % (Auto) Lymph # (Auto) [place] # (Auto) Eos # (Auto) Baso # (Auto) Abs Immat Gran (auto) Absolute Neuts (auto) Absolute Nucleated RBC Nucleated RBC % (auto) O2 Saturation 96.0 ABG pH at Pt Temp 7.40 ABG pCO2 at Pt Temp 52 H ABG pO2 at Pt Temp 89 ABG HCO3 33 H ABG Base Excess (Actual) 7.4 Sodium Potassium Chloride Carbon Dioxide Anion Gap BUN Creatinine Estim Creat Clear Calc Estimated GFR POC Glucose 171 H Random Glucose Lactic Acid Calcium Total Bilirubin Direct Bilirubin AST ALT Alkaline Phosphatase Total Protein Albumin Amylase Lipase C. difficile Tox B Gene C. difficile Toxin A&B C. difficile Interpret Imaging Radiologist's impression: Impressions Hip X-Ray 10/20/22 13:13 IMPRESSION: No acute fractures or subluxation. 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 Chest X-Ray 10/20/22 14:00 IMPRESSION: CHF slightly increased from yesterday's exam. Abdomen/Pelvis CT 10/20/22 15:00 IMPRESSION: CT CHEST: Bibasilar airspace opacities. CT ABDOMEN PELVIS: 1. Mild diverticulitis of the sigmoid colon. 2. Chan catheter within the bladder. Chest CT 10/20/22 15:00 IMPRESSION: CT CHEST: Bibasilar airspace opacities. CT ABDOMEN PELVIS: 1. Mild diverticulitis of the sigmoid colon. 2. Chan catheter within the bladder. Abdomen Ultrasound 10/20/22 19:10 IMPRESSION: Unremarkable right upper quadrant ultrasound. The main portal vein is patent with appropriate hepatopedal flow Progress Note: A&P Assessment and plan (1) Acute on chronic diastolic CHF (congestive heart failure): Status: Acute (2) PAF (paroxysmal atrial fibrillation): Status: Acute Plan Pleasant 77 year female presenting with respiratory distress due to congestive heart failure. Chest x-ray yesterday has shown significant worsening of congestive heart failure. She has been off and on on CPAP. Diuresing Bumex drip and as needed metolazone 5 mg. Increase the isosorbide mononitrate to 60 mg once a day. Blood pressure control is reasonable. She is on antibiotics. She has been in and out of atrial fibrillation. No obvious concerning signs picked up on the abdominal workup. Liver enzymes are normal. Given the fact that she is in and out of AFib obstructing her on amiodarone 400 mg twice a day. If there is no concern for bleeding that she should be started on apixaban for anticoagulation. Thank you for allowing me to participate in the care of your patient. Please feel free to contact me if you have any questions. Time Spent With Patient Time: Total time managing care of this patient today ____ minutes. Progress Note: Quality Stroke Does the patient have a stroke diagnosis?: No Procedures Date of Service Date of Service: 10/21/22
--- NOTE | 2022-10-21 13:19 | MHC.SPEECHCO ---
Pt on hold for QA TESTER services due to gastrointestinal distress. Will continue to follow for potential diet advancement.
[2022-10-21] MEDS: vancomycin HCL 125 MG CAPSULE 250 MG PO ×2 (13:48→18:43)
[2022-10-21] MEDS: metOLazone 5 MG TABLET PO (13:48)
--- NOTE | 2022-10-21 14:12 | HO.PM.IMPN ---
Subjective Subjective Date of Service: 10/21/22 Interval History: seen and examined this morning follow up for sob reporting chest heaviness and shortness of breath continuously Review of Systems Review of Systems: Yes all other systems are reviewed and are negative Constitutional Constitutional: Denies chills and Denies fever(s) Cardiovascular Cardiovascular: Reports chest pain, Denies palpitations and Reports dyspnea Respiratory Respiratory: Denies cough and Reports dyspnea Gastrointestinal Gastrointestinal: Denies abdominal pain, Denies nausea and Denies vomiting Endocrine Endocrine: Denies palpitations Physical Exam Vital Signs: Vital Signs: Last Vital Signs Temp 97.3 F 10/21/22 11:26 Pulse 73 10/21/22 11:26 Resp 18 10/21/22 11:26 BP 145/66 H 10/21/22 11:26 Pulse Ox 95 10/21/22 11:26 O2 Del Method CPAP 10/21/22 11:26 O2 Flow Rate 22 10/21/22 11:26 FiO2 99 10/21/22 11:26 Oxygen Flow Rate 4 10/17/22 08:24 BMI result Body Mass Index 36.9 Appearing in no acute distress lung sounds are clear to auscultation heart regular rate rhythm, clear S1, S2 positive bowel sounds, abdomen is soft, nontender neuro patient is alert x3, no focal deficits Objective Data Active Medications Acetaminophen (Acetaminophen 325 Mg Tablet) 650 mg PO Q6H PRN PRN Reason: Pain, Mild (Pain Scale 1-3) Last Admin: 10/19/22 14:17 Dose: 650 mg Documented By: JOVANA Amiodarone HCl (Amiodarone Hcl 200 Mg Tablet) 400 mg PO TID [facility] Docusate Sodium (Docusate Sodium 100 Mg Capsule) 100 mg PO DAILY PRN PRN Reason: Constipation Glucose (Glucose Gel 15 Gm Gel..Gram.) 15 gm PO Q15M PRN; Protocol PRN Reason: per Hypoglycemia Standing Ord. Heparin Sodium (Porcine) (Heparin Sodium,Porcine 5,000 Unit/Ml Vial) 5,000 unit SUBCUT Q12H [facility] Last Admin: 10/21/22 06:22 Dose: 5,000 unit Documented By: ARCELIA Hydroxyzine HCl (Hydroxyzine Hcl 25 Mg Tablet) 12.5 mg PO Q8H PRN PRN Reason: anxiety Dextrose (D10) 250 mls @ 750 mls/hr IV Q15M PRN; Protocol PRN Reason: per Hypoglycemia Standing Ord. Bumetanide 25 mg/ IV (Miscellaneous Supplies) 100 mls @ 4 mls/hr IVCONT .Q24H [facility] Last Admin: 10/20/22 15:58 Dose: 1 mg/hr, 4 mls/hr Documented By: BARRY Piperacillin Sod/Tazobactam (Sod 4.5 gm/ Sodium Chloride) 100 mls @ 200 mls/hr IV Q12H [facility] Last Infusion: 10/21/22 08:03 Dose: 0 mls/hr Documented By: BARRY Doxycycline Hyclate 100 mg/ (Sodium Chloride) 250 mls @ 166.67 mls/hr IV Q12H [facility] Last Infusion: 10/21/22 10:49 Dose: 0 mls/hr Documented By: BARRY Insulin Human Lispro (Insulin Lispro 100 Unit/Ml 3 Ml Vial) 0 unit SUBCUT QIDACHS [facility]; Protocol Last Admin: 10/21/22 12:43 Dose: Not Given Documented By: BARRY Non-Admin Reason: No Insulin Coverage Isosorbide Mononitrate (Isosorbide Mononitrate 60 Mg Tab.Er.24h) 60 mg PO DAILY [facility]; Protocol Last Admin: 10/21/22 09:21 Dose: 60 mg Documented By: BARRY Levothyroxine Sodium (Levothyroxine Sodium 50 Mcg Tablet) 50 mcg PO DAILY@0630 [facility] Last Admin: 10/21/22 06:22 Dose: 50 mcg Documented By: ARCELIA Lorazepam (Lorazepam 2 Mg/Ml Vial) 0.25 mg IVPUSH Q6H PRN PRN Reason: anxiety Morphine Sulfate (Morphine Sulfate 2 Mg/Ml Cartridge) 1 mg IVPUSH Q3H PRN; Protocol PRN Reason: sob Last Admin: 10/21/22 13:45 Dose: 1 mg Documented By: BARRY Omeprazole (Omeprazole 20 Mg Capsule.Dr) 20 mg PO BID@0630,1630 [facility] Last Admin: 10/21/22 06:22 Dose: 20 mg Documented By: ARCELIA Ondansetron HCl (Ondansetron Hcl 4 Mg/2 Ml Vial) 4 mg IVPUSH Q6H PRN PRN Reason: Nausea and Vomiting Pantoprazole Sodium (Pantoprazole Sodium 40 Mg/10 Ml Vial) 40 mg IVPUSH DAILY@0630 [facility] Last Admin: 10/21/22 06:22 Dose: 40 mg Documented By: ARCELIA Polyethylene Glycol (Polyethylene Glycol 3350 17 Gm Powd.Pack) 17 gm PO BID [facility] Last Admin: 10/21/22 10:17 Dose: Not Given Documented By: BARRY Non-Admin Reason: Patient Refused Sodium Chloride (0.9 % Sodium Chloride Flush 3 Ml Syringe) 3 ml IVFLUSH QSHIFT [facility] Last Admin: 10/21/22 09:19 Dose: Not Given Documented By: BARRY Non-Admin Reason: IV Running Vancomycin HCl (Vancomycin Hcl 125 Mg Capsule) 250 mg PO Q6H [facility] Last Admin: 10/21/22 13:48 Dose: 250 mg Documented By: BARRY Labs 10/21/22 07:36 10/20/22 16:18 Labs: Laboratory Results - last 24 hr 10/20/22 10/20/22 10/20/22 16:18 16:18 16:27 MCV MCH MCHC RDW Plt Count MPV Immature Gran % (Auto) Neut % (Auto) Lymph % (Auto) [place] % (Auto) Eos % (Auto) Baso % (Auto) Lymph # (Auto) [place] # (Auto) Eos # (Auto) Baso # (Auto) Abs Immat Gran (auto) Absolute Neuts (auto) Absolute Nucleated RBC Nucleated RBC % (auto) O2 Saturation ABG pH at Pt Temp ABG pCO2 at Pt Temp ABG pO2 at Pt Temp ABG HCO3 ABG Base Excess (Actual) Anion Gap 18 Estim Creat Clear Calc 17.2 Estimated GFR 16 POC Glucose 207 H Random Glucose 224 H Lactic Acid 0.7 Calcium 8.7 Total Bilirubin Direct Bilirubin AST ALT Alkaline Phosphatase Total Protein Albumin Amylase Lipase C. difficile Tox B Gene C. difficile Toxin A&B C. difficile Interpret 10/20/22 10/20/22 10/21/22 21:12 22:17 07:29 MCV MCH MCHC RDW Plt Count MPV Immature Gran % (Auto) Neut % (Auto) Lymph % (Auto) [place] % (Auto) Eos % (Auto) Baso % (Auto) Lymph # (Auto) [place] # (Auto) Eos # (Auto) Baso # (Auto) Abs Immat Gran (auto) Absolute Neuts (auto) Absolute Nucleated RBC Nucleated RBC % (auto) O2 Saturation ABG pH at Pt Temp ABG pCO2 at Pt Temp ABG pO2 at Pt Temp ABG HCO3 ABG Base Excess (Actual) Anion Gap Estim Creat Clear Calc Estimated GFR POC Glucose 221 H 132 H Random Glucose Lactic Acid Calcium Total Bilirubin Direct Bilirubin AST ALT Alkaline Phosphatase Total Protein Albumin Amylase Lipase C. difficile Tox B Gene POSITIVE A* C. difficile Toxin A&B Negative C. difficile Interpret SEE NOTE 10/21/22 10/21/22 10/21/22 07:36 07:36 07:36 MCV 92.2 MCH 29.8 MCHC 32.3 RDW 14.6 Plt Count 228 MPV 11.5 Immature Gran % (Auto) 0.4 Neut % (Auto) 82.8 H Lymph % (Auto) 7.0 L [place] % (Auto) 7.8 Eos % (Auto) 1.7 Baso % (Auto) 0.3 Lymph # (Auto) 1.0 L [place] # (Auto) 1.1 Eos # (Auto) 0.2 Baso # (Auto) 0.0 Abs Immat Gran (auto) 0.06 H Absolute Neuts (auto) 11.6 H Absolute Nucleated RBC 0.000 Nucleated RBC % (auto) 0.0 O2 Saturation ABG pH at Pt Temp ABG pCO2 at Pt Temp ABG pO2 at Pt Temp ABG HCO3 ABG Base Excess (Actual) Anion Gap Estim Creat Clear Calc Estimated GFR POC Glucose Random Glucose Lactic Acid 0.6 Calcium Total Bilirubin 0.6 Direct Bilirubin 0.2 AST 14 ALT 10 Alkaline Phosphatase 89 Total Protein 6.5 Albumin 4.0 Amylase 36 Lipase 22 C. difficile Tox B Gene C. difficile Toxin A&B C. difficile Interpret 10/21/22 10/21/22 07:47 11:45 MCV MCH MCHC RDW Plt Count MPV Immature Gran % (Auto) Neut % (Auto) Lymph % (Auto) [place] % (Auto) Eos % (Auto) Baso % (Auto) Lymph # (Auto) [place] # (Auto) Eos # (Auto) Baso # (Auto) Abs Immat Gran (auto) Absolute Neuts (auto) Absolute Nucleated RBC Nucleated RBC % (auto) O2 Saturation 96.0 ABG pH at Pt Temp 7.40 ABG pCO2 at Pt Temp 52 H ABG pO2 at Pt Temp 89 ABG HCO3 33 H ABG Base Excess (Actual) 7.4 Anion Gap Estim Creat Clear Calc Estimated GFR POC Glucose 171 H Random Glucose Lactic Acid Calcium Total Bilirubin Direct Bilirubin AST ALT Alkaline Phosphatase Total Protein Albumin Amylase Lipase C. difficile Tox B Gene C. difficile Toxin A&B C. difficile Interpret Assessment and Plan (1) Acute kidney injury superimposed on CKD: Status: Acute (2) Acute respiratory failure with hypoxia and hypercapnia: Status: Acute (3) Acute on chronic diastolic CHF (congestive heart failure): Status: Acute Plan This is a 77-year-old female with history of HFpEF, T2DM, HTN, CKD 3/4, chronic back/neck pain secondary to spinal stenosis who presents to the emergency department with complaints of shortness of breath found to have acute respiratory failure secondary to CHF Cdiff gene pos, A&B negative will treat in light off diarrhea Vancomycin oral 10 days HFpEF normal EF severe pulm HTN continue Bumex 1mg/hr monitor I&O weights cardio following Colitis, extensive with abd pain. Ischemic vs infectious in light of cdiff GI following normal abd doppler elevated procalcitonin started on Zosyn keep NPO for now may need to consider alternative nutrition if patient remains unable to eat due to pain seen by general surgery, no surgical intervention required at this time, rec> serial exams and labs Acute respiratory failure with hypoxia / hypercarbia likely secondary bilateral pna, CHF flu/RSV/covid negative. increased isosorbide to 60mg daily, s/p metolazone x1 Intermittent BiPAP, oxymask normal ABG continue Zosyn and Doxycycline KEILA on CKD 4 r/t congestion from CHF, should improve with diuresis follow renal function no alejandra/arb or nsaids as per nephro nephrology following Added isosorbide daily labile mood ativan prn for anxiety Constipation. having diarrhea hold bowel reg HTN continue metoprolol, norvasc T2DM SSI, ADA diet hypothyroid continue synthroid chronic pain renally dose gabapentin dose due to renal dysfunction pain management Gerd continue omeprazole Morbid obesity bmi 36.9 Discussed importance of weight management as this may be contributing to worsening of other comorbidities dvt ppx -heparin code status - Full code attending Dr. Alford patient requires ongoing stay in the hospital for management of respiratory failure, CHF requiring IV diuresis, specialist consultation, close monitoring of respiratory status Time Spent With Patient Time: Total time managing care of this patient today ____ minutes. Quality Stroke Does the patient have a stroke diagnosis?: No VTE Prior VTE?: No VTE Risk Level:: Medical - moderate - high VTE Device Contraindication: N/A - Device Ordered VTE Drug Contraindication: N/A - Med Ordered
[2022-10-21] MEDS: Bumetanide 25 MG in Container,Empty 0 ML 4 MG IVCONT (16:26)
[2022-10-21] MEDS: 0.9 % Sodium Chloride Flush 3 ML SYRINGE IVFLUSH ×2 (16:27→21:16)
[2022-10-21] MEDS: Amiodarone HCL 200 MG TABLET 400 MG PO ×2 (16:27→21:14)
[2022-10-21 16:35] LABS: Glucose, Whole Blood 180 mg/dL (60-115)
[2022-10-21] MEDS: Insulin Lispro 100 UNIT/ML 3 ML VIAL SUBCUT (17:06)
[2022-10-21 19:01] LABS: Anion Gap 19 (12-20); Blood Urea Nitrogen 75 mg/dL (9-16); Calcium 8.8 mg/dL (8.4-10.2); Carbon Dioxide 31 mmol/L (22-29); Chloride 99 mmol/L (96-108); Creatinine Clr Calc Pharmacy 15.6; Estimated Glomerular Filt Rate 15; Glucose Fasting 159 mg/dL (60-99); Potassium 3.1 mmol/L (3.3-5.1); Sodium 146 mmol/L (135-145)
[2022-10-21 20:54] LABS: Glucose, Whole Blood 148 mg/dL (60-115)
[2022-10-21] MEDS: polyethylene glycoL 3350 17 GM POWD.PACK PO (21:14)
[2022-10-21] MEDS: LORazepam 2 MG/ML VIAL 1 MG IVPUSH (23:27)
[2022-10-22] VITALS (12 sets, daily range): BP systolic 128–189; BP diastolic 40–80; PULSE 68–84; RESP 14–24; TEMP 36–37.2; O2SAT 90–97; BMI 37.4
[2022-10-22] MEDS: vancomycin HCL 125 MG CAPSULE 250 MG PO ×4 (01:56→21:05)
[2022-10-22] MEDS: Pantoprazole Sodium 40 MG/10 ML VIAL IVPUSH (05:37)
[2022-10-22] MEDS: Piperacillin Sodium/Tazobactam 4.5 GM in 0.9 % Sodium Chloride 100 ML IV ×2 (05:37→17:20)
[2022-10-22] MEDS: Heparin Sodium,Porcine 5,000 UNIT/ML VIAL 5000 UNIT SUBCUT ×2 (05:44→17:21)
[2022-10-22] MEDS: Omeprazole 20 MG CAPSULE.DR PO ×2 (05:44→15:45)
[2022-10-22] MEDS: Levothyroxine Sodium 50 MCG TABLET PO (05:44)
[2022-10-22] MEDS: Doxycycline Hyclate 100 MG in 0.9 % Sodium Chloride 250 ML 166.67 MG IV ×2 (07:03→18:05)
[2022-10-22 07:43] LABS: Glucose, Whole Blood 148 mg/dL (60-115)
[2022-10-22 08:03] LABS: MANUAL DIFF FLAG NO
[2022-10-22 08:12] LABS: Basophils Percent Auto 0.3 % (0-2); Eosinophils Absolute Auto 0.2 X10*3/uL (0.0-0.4); Eosinophils Percent Auto 1.9 % (0-4); Hematocrit 30.2 % (37.0-47.0); Hemoglobin 9.6 g/dl (12.0-16.0); Imm Gran Abs Auto 0.13 X10*3/uL (0.00-0.03); Imm Gran Pct Auto 1.3 % (0.0-0.4); Lymphocytes Percent Auto 9.9 % (20-40); Mean Corpuscular HGB Conc 31.8 g/dl (31.0-35.0); Mean Corpuscular Hemoglobin 29.3 pg (27.0-33.0); Mean Corpuscular Volume 92.1 fL (80.0-98.0); Mean Platelet Volume 11.3 fL (9.4-12.3); Monocytes Absolute Auto 0.7 X10*3/uL (0.1-1.2); Monocytes Percent Auto 6.5 % (2-11); Neutrophils Percent Auto 80.1 % (45-73); Platelet Count 227 X10*3/uL (160-400); Red Blood Count 3.28 X10*6/uL (4.20-5.50); Red Cell Distribution Width 14.6 % (11.0-16.0)
[2022-10-22 08:26] LABS: Lactic Acid 0.4 mmol/L (0.5-2.0)
[2022-10-22 08:31] LABS: Alanine Aminotransferase 10 U/L (0-31); Albumin Level 3.9 g/dL (3.5-5.0); Alkaline Phosphatase 81 U/L (39-117); Aspartate Amino Transferase 12 U/L (5-31); Bilirubin Direct 0.2 mg/dL (0.0-0.5); Bilirubin Total 0.6 mg/dL (0.0-1.0); Total Protein 6.6 g/dL (6.5-8.0)
[2022-10-22 08:34] LABS: B Type Natriuretic Peptide 248 pg/mL (<100); Blood Urea Nitrogen 78 mg/dL (9-16); Calcium 8.5 mg/dL (8.4-10.2); Creatinine Clr Calc Pharmacy 14.5; Estimated Glomerular Filt Rate 14; Glucose Random 159 mg/dL (60-115)
[2022-10-22] MEDS: Morphine Sulfate 2 MG/ML CARTRIDGE 1 MG IVPUSH ×4 (08:47→21:55)
[2022-10-22] MEDS: 0.9 % Sodium Chloride Flush 3 ML SYRINGE IVFLUSH ×2 (08:47→21:17)
[2022-10-22 08:48] LABS: Anion Gap 23 (12-20); Carbon Dioxide 29 mmol/L (22-29); Chloride 98 mmol/L (96-108); Potassium 2.8 mmol/L (3.3-5.1); Sodium 147 mmol/L (135-145)
[2022-10-22] MEDS: hydrOXYzine HCL 25 MG TABLET 12.5 MG PO (08:57)
[2022-10-22] MEDS: Isosorbide Mononitrate 60 MG TAB.ER.24H PO (08:59)
[2022-10-22] MEDS: Amiodarone HCL 200 MG TABLET 400 MG PO ×2 (09:03→21:06)
[2022-10-22] MEDS: Potassium Chloride Packet 20 MEQ PACKET 40 MEQ PO ×2 (10:29→21:05)
[2022-10-22] MEDS: Potassium Chloride/H20 10 MEQ/100 ML PIGGYBACK 100 MEQ IV ×2 (10:29→12:13)
--- NOTE | 2022-10-22 10:37 | PM.PNGS ---
Subjective Subjective Date of Service: 10/22/22 Interval history: Patient still semi arousable but states that her abdominal pain is better. She had 1 bout of loose stool yesterday. She is currently NPO. WBC down to 10 Physical Exam Vital Signs: Vital Signs: Last Vital Signs Temp 99.0 F 10/22/22 07:14 Pulse 70 10/22/22 07:14 Resp 20 10/22/22 07:14 BP 172/70 H 10/22/22 07:14 Pulse Ox 94 10/22/22 09:20 O2 Del Method Oxymask 10/22/22 09:20 O2 Flow Rate 6 10/22/22 09:20 FiO2 40 10/22/22 03:39 Oxygen Flow Rate 4 10/17/22 08:24 BMI result Body Mass Index 36.9 GI: Other: Abdomen is soft with mild epigastric tenderness. No evidence of guarding, rebound, or rigidity. Objective Data Active Medications Acetaminophen (Acetaminophen 325 Mg Tablet) 650 mg PO Q6H PRN PRN Reason: Pain, Mild (Pain Scale 1-3) Last Admin: 10/19/22 14:17 Dose: 650 mg Documented By: JOVANA Amiodarone HCl (Amiodarone Hcl 200 Mg Tablet) 400 mg PO TID [facility] Last Admin: 10/22/22 09:03 Dose: 400 mg Documented By: DARLENE Docusate Sodium (Docusate Sodium 100 Mg Capsule) 100 mg PO DAILY PRN PRN Reason: Constipation Glucose (Glucose Gel 15 Gm Gel..Gram.) 15 gm PO Q15M PRN; Protocol PRN Reason: per Hypoglycemia Standing Ord. Heparin Sodium (Porcine) (Heparin Sodium,Porcine 5,000 Unit/Ml Vial) 5,000 unit SUBCUT Q12H [facility] Last Admin: 10/22/22 05:44 Dose: 5,000 unit Documented By: ARCELIA Hydroxyzine HCl (Hydroxyzine Hcl 25 Mg Tablet) 12.5 mg PO Q8H PRN PRN Reason: anxiety Last Admin: 10/22/22 08:57 Dose: 12.5 mg Documented By: DARLENE Dextrose (D10) 250 mls @ 750 mls/hr IV Q15M PRN; Protocol PRN Reason: per Hypoglycemia Standing Ord. Bumetanide 25 mg/ IV (Miscellaneous Supplies) 100 mls @ 4 mls/hr IVCONT .Q24H [facility] Last Infusion: 10/22/22 10:23 Dose: 0 mg/hr, 0 mls/hr Documented By: DARLENE Piperacillin Sod/Tazobactam (Sod 4.5 gm/ Sodium Chloride) 100 mls @ 200 mls/hr IV Q12H [facility] Last Infusion: 10/22/22 07:09 Dose: 0 mls/hr Documented By: ARCELIA Doxycycline Hyclate 100 mg/ (Sodium Chloride) 250 mls @ 166.67 mls/hr IV Q12H [facility] Last Infusion: 10/22/22 08:47 Dose: 0 mls/hr Documented By: DARLENE Potassium Chloride (Potassium Chloride/H20) 10 meq in 100 mls @ 100 mls/hr IV Q1H [facility] Stop: 10/22/22 11:44 Last Admin: 10/22/22 10:29 Dose: 100 mls/hr Documented By: DARLENE Insulin Human Lispro (Insulin Lispro 100 Unit/Ml 3 Ml Vial) 0 unit SUBCUT QIDACHS [facility]; Protocol Last Admin: 10/22/22 07:44 Dose: Not Given Documented By: DARLENE Non-Admin Reason: No Insulin Coverage Isosorbide Mononitrate (Isosorbide Mononitrate 60 Mg Tab.Er.24h) 60 mg PO DAILY [facility]; Protocol Last Admin: 10/22/22 08:59 Dose: 60 mg Documented By: DARLENE Levothyroxine Sodium (Levothyroxine Sodium 50 Mcg Tablet) 50 mcg PO DAILY@0630 [facility] Last Admin: 10/22/22 05:44 Dose: 50 mcg Documented By: ARCELIA Lorazepam (Lorazepam 2 Mg/Ml Vial) 0.25 mg IVPUSH Q6H PRN PRN Reason: anxiety Morphine Sulfate (Morphine Sulfate 2 Mg/Ml Cartridge) 1 mg IVPUSH Q3H PRN; Protocol PRN Reason: sob Last Admin: 10/22/22 08:47 Dose: 1 mg Documented By: DARLENE Omeprazole (Omeprazole 20 Mg Capsule.) 20 mg PO BID@0630,1630 [facility] Last Admin: 10/22/22 05:44 Dose: 20 mg Documented By: ARCELIA Ondansetron HCl (Ondansetron Hcl 4 Mg/2 Ml Vial) 4 mg IVPUSH Q6H PRN PRN Reason: Nausea and Vomiting Pantoprazole Sodium (Pantoprazole Sodium 40 Mg/10 Ml Vial) 40 mg IVPUSH DAILY@0630 [facility] Last Admin: 10/22/22 05:37 Dose: 40 mg Documented By: ARCELIA Polyethylene Glycol (Polyethylene Glycol 3350 17 Gm Powd.Pack) 17 gm PO BID [facility] Last Admin: 10/22/22 08:42 Dose: Not Given Documented By: DARLENE Non-Admin Reason: loose stool Potassium Chloride (Potassium Chloride Packet 20 Meq Packet) 40 meq PO BID [facility] Stop: 10/22/22 21:01 Last Admin: 10/22/22 10:29 Dose: 40 meq Documented By: DARLENE Sodium Chloride (0.9 % Sodium Chloride Flush 3 Ml Syringe) 3 ml IVFLUSH QSHIFT [facility] Last Admin: 10/22/22 08:47 Dose: 3 ml Documented By: DARLENE Vancomycin HCl (Vancomycin Hcl 125 Mg Capsule) 250 mg PO Q6H [facility] Stop: 10/31/22 12:59 Last Admin: 10/22/22 08:57 Dose: 250 mg Documented By: DARLENE Labs 10/22/22 07:57 10/22/22 07:57 Labs: Laboratory Results - last 24 hr 10/21/22 10/21/22 10/21/22 11:45 16:30 18:32 MCV MCH MCHC RDW Plt Count MPV Immature Gran % (Auto) Neut % (Auto) Lymph % (Auto) [place] % (Auto) Eos % (Auto) Baso % (Auto) Lymph # (Auto) [place] # (Auto) Eos # (Auto) Baso # (Auto) Abs Immat Gran (auto) Absolute Neuts (auto) Absolute Nucleated RBC Nucleated RBC % (auto) Anion Gap 19 Estim Creat Clear Calc 15.6 Estimated GFR 15 POC Glucose 171 H 180 H Random Glucose Fasting Glucose 159 H Lactic Acid Calcium 8.8 Total Bilirubin Direct Bilirubin AST ALT Alkaline Phosphatase B-Natriuretic Peptide Total Protein Albumin 10/21/22 10/22/22 10/22/22 20:50 07:35 07:57 MCV 92.1 MCH 29.3 MCHC 31.8 RDW 14.6 Plt Count 227 MPV 11.3 Immature Gran % (Auto) 1.3 H Neut % (Auto) 80.1 H Lymph % (Auto) 9.9 L [place] % (Auto) 6.5 Eos % (Auto) 1.9 Baso % (Auto) 0.3 Lymph # (Auto) 1.0 L [place] # (Auto) 0.7 Eos # (Auto) 0.2 Baso # (Auto) 0.0 Abs Immat Gran (auto) 0.13 H Absolute Neuts (auto) 8.0 Absolute Nucleated RBC 0.000 Nucleated RBC % (auto) 0.0 Anion Gap Estim Creat Clear Calc Estimated GFR POC Glucose 148 H 148 H Random Glucose Fasting Glucose Lactic Acid Calcium Total Bilirubin Direct Bilirubin AST ALT Alkaline Phosphatase B-Natriuretic Peptide Total Protein Albumin 10/22/22 10/22/22 10/22/22 07:57 07:57 07:57 MCV MCH MCHC RDW Plt Count MPV Immature Gran % (Auto) Neut % (Auto) Lymph % (Auto) [place] % (Auto) Eos % (Auto) Baso % (Auto) Lymph # (Auto) [place] # (Auto) Eos # (Auto) Baso # (Auto) Abs Immat Gran (auto) Absolute Neuts (auto) Absolute Nucleated RBC Nucleated RBC % (auto) Anion Gap 23 H Estim Creat Clear Calc 14.5 Estimated GFR 14 POC Glucose Random Glucose 159 H Fasting Glucose Lactic Acid 0.4 L Calcium 8.5 Total Bilirubin 0.6 Direct Bilirubin 0.2 AST 12 ALT 10 Alkaline Phosphatase 81 B-Natriuretic Peptide Total Protein 6.6 Albumin 3.9 10/22/22 07:57 MCV MCH MCHC RDW Plt Count MPV Immature Gran % (Auto) Neut % (Auto) Lymph % (Auto) [place] % (Auto) Eos % (Auto) Baso % (Auto) Lymph # (Auto) [place] # (Auto) Eos # (Auto) Baso # (Auto) Abs Immat Gran (auto) Absolute Neuts (auto) Absolute Nucleated RBC Nucleated RBC % (auto) Anion Gap Estim Creat Clear Calc Estimated GFR POC Glucose Random Glucose Fasting Glucose Lactic Acid Calcium Total Bilirubin Direct Bilirubin AST ALT Alkaline Phosphatase B-Natriuretic Peptide 248 H Total Protein Albumin Procedures Date of Service Date of Service: 10/22/22 Progress Note: A&P Assessment and plan (1) Epigastric abdominal pain: Status: Acute Plan Upper abdominal pain of ill-defined etiology. Patient clinically stable. At this time, no acute surgical issues. Consider p.o. liquids and advance as tolerated. Will follow-up p.r.n. Time Spent With Patient Time: Total time managing care of this patient today ____ minutes. Quality Stroke Does the patient have a stroke diagnosis?: No VTE Prior VTE?: No VTE Risk Level:: Medical - moderate - high VTE Device Contraindication: N/A - Device Ordered VTE Drug Contraindication: N/A - Med Ordered
--- NOTE | 2022-10-22 10:51 | PM.PNNEP ---
Subjective Subjective Date of Service: 10/22/22 Interval history: Seen AM. Feels improved. D/W Cards Physical Exam Vital Signs: Vital Signs: Last Vital Signs Temp 99.0 F 10/22/22 07:14 Pulse 70 10/22/22 07:14 Resp 20 10/22/22 07:14 BP 172/70 H 10/22/22 07:14 Pulse Ox 94 10/22/22 09:20 O2 Del Method Oxymask 10/22/22 09:20 O2 Flow Rate 6 10/22/22 09:20 FiO2 40 10/22/22 03:39 Oxygen Flow Rate 4 10/17/22 08:24 BMI result Body Mass Index 36.9 Const: General: no acute distress Eyes: EOM: EOMs intact bilaterally Neck: Neck: Yes supple Resp: Auscultation: diminished lung sounds Cardio: Rate: regular rate GI: Palpation (GI): Soft to palpation Neuro: General: moves all extremities Objective Data Labs 10/22/22 07:57 10/22/22 07:57 Labs: Laboratory Results - last 24 hr 10/21/22 10/21/22 10/21/22 11:45 16:30 18:32 WBC RBC Hgb Hct MCV MCH MCHC RDW Plt Count MPV Immature Gran % (Auto) Neut % (Auto) Lymph % (Auto) [place] % (Auto) Eos % (Auto) Baso % (Auto) Lymph # (Auto) [place] # (Auto) Eos # (Auto) Baso # (Auto) Abs Immat Gran (auto) Absolute Neuts (auto) Absolute Nucleated RBC Nucleated RBC % (auto) Sodium 146 H Potassium 3.1 L D Chloride 99 Carbon Dioxide 31 H Anion Gap 19 BUN 75 H Creatinine 3.01 H Estim Creat Clear Calc 15.6 Estimated GFR 15 POC Glucose 171 H 180 H Random Glucose Fasting Glucose 159 H Lactic Acid Calcium 8.8 Total Bilirubin Direct Bilirubin AST ALT Alkaline Phosphatase B-Natriuretic Peptide Total Protein Albumin 10/21/22 10/22/22 10/22/22 20:50 07:35 07:57 WBC 10.0 RBC 3.28 L Hgb 9.6 L Hct 30.2 L MCV 92.1 MCH 29.3 MCHC 31.8 RDW 14.6 Plt Count 227 MPV 11.3 Immature Gran % (Auto) 1.3 H Neut % (Auto) 80.1 H Lymph % (Auto) 9.9 L [place] % (Auto) 6.5 Eos % (Auto) 1.9 Baso % (Auto) 0.3 Lymph # (Auto) 1.0 L [place] # (Auto) 0.7 Eos # (Auto) 0.2 Baso # (Auto) 0.0 Abs Immat Gran (auto) 0.13 H Absolute Neuts (auto) 8.0 Absolute Nucleated RBC 0.000 Nucleated RBC % (auto) 0.0 Sodium Potassium Chloride Carbon Dioxide Anion Gap BUN Creatinine Estim Creat Clear Calc Estimated GFR POC Glucose 148 H 148 H Random Glucose Fasting Glucose Lactic Acid Calcium Total Bilirubin Direct Bilirubin AST ALT Alkaline Phosphatase B-Natriuretic Peptide Total Protein Albumin 10/22/22 10/22/22 10/22/22 07:57 07:57 07:57 WBC RBC Hgb Hct MCV MCH MCHC RDW Plt Count MPV Immature Gran % (Auto) Neut % (Auto) Lymph % (Auto) [place] % (Auto) Eos % (Auto) Baso % (Auto) Lymph # (Auto) [place] # (Auto) Eos # (Auto) Baso # (Auto) Abs Immat Gran (auto) Absolute Neuts (auto) Absolute Nucleated RBC Nucleated RBC % (auto) Sodium 147 H Potassium 2.8 L Chloride 98 Carbon Dioxide 29 Anion Gap 23 H BUN 78 H Creatinine 3.24 H Estim Creat Clear Calc 14.5 Estimated GFR 14 POC Glucose Random Glucose 159 H Fasting Glucose Lactic Acid 0.4 L Calcium 8.5 Total Bilirubin 0.6 Direct Bilirubin 0.2 AST 12 ALT 10 Alkaline Phosphatase 81 B-Natriuretic Peptide Total Protein 6.6 Albumin 3.9 10/22/22 07:57 WBC RBC Hgb Hct MCV MCH MCHC RDW Plt Count MPV Immature Gran % (Auto) Neut % (Auto) Lymph % (Auto) [place] % (Auto) Eos % (Auto) Baso % (Auto) Lymph # (Auto) [place] # (Auto) Eos # (Auto) Baso # (Auto) Abs Immat Gran (auto) Absolute Neuts (auto) Absolute Nucleated RBC Nucleated RBC % (auto) Sodium Potassium Chloride Carbon Dioxide Anion Gap BUN Creatinine Estim Creat Clear Calc Estimated GFR POC Glucose Random Glucose Fasting Glucose Lactic Acid Calcium Total Bilirubin Direct Bilirubin AST ALT Alkaline Phosphatase B-Natriuretic Peptide 248 H Total Protein Albumin Microbiology Microbiology Results: Microbiology 10/17/22 08:57 Blood - Venous Blood Culture - Preliminary No growth after 48 hours. 10/17/22 08:45 Blood - Venous Blood Culture - Preliminary No growth after 48 hours. Procedures Date of Service Date of Service: 10/22/22 Assessment & Plan Assessment and plan (1) Acute kidney injury superimposed on CKD: Status: Acute Assessment and Plan: Has CKD 3b at baseline; Currently KEILA due to CRS/PNA Hypervolemic- responding to diuresis-C/W current dose of diuretics No ACEI/ARB/NSAID's for now No reason to suspect AIN/GN/Obstructive uropathy Continue rest of current supportive care for now; Labs AM Progress Note: Quality Stroke Does the patient have a stroke diagnosis?: No
--- NOTE | 2022-10-22 10:54 | P.PNNP_ITS ---
Subjective Subjective Date of Service: 10/22/22 Interval history: Seen AM. Feels improved. D/W Cards Physical Exam Vital Signs: Vital Signs: Last Vital Signs Temp 99.0 F 10/22/22 07:14 Pulse 70 10/22/22 07:14 Resp 20 10/22/22 07:14 BP 172/70 H 10/22/22 07:14 Pulse Ox 94 10/22/22 09:20 O2 Del Method Oxymask 10/22/22 09:20 O2 Flow Rate 6 10/22/22 09:20 FiO2 40 10/22/22 03:39 Oxygen Flow Rate 4 10/17/22 08:24 BMI result Body Mass Index 36.9 Objective Data Labs 10/22/22 07:57 10/22/22 07:57 Labs: Laboratory Results - last 24 hr 10/21/22 10/21/22 10/21/22 11:45 16:30 18:32 WBC RBC Hgb Hct MCV MCH MCHC RDW Plt Count MPV Immature Gran % (Auto) Neut % (Auto) Lymph % (Auto) [place] % (Auto) Eos % (Auto) Baso % (Auto) Lymph # (Auto) [place] # (Auto) Eos # (Auto) Baso # (Auto) Abs Immat Gran (auto) Absolute Neuts (auto) Absolute Nucleated RBC Nucleated RBC % (auto) Sodium 146 H Potassium 3.1 L D Chloride 99 Carbon Dioxide 31 H Anion Gap 19 BUN 75 H Creatinine 3.01 H Estim Creat Clear Calc 15.6 Estimated GFR 15 POC Glucose 171 H 180 H Random Glucose Fasting Glucose 159 H Lactic Acid Calcium 8.8 Total Bilirubin Direct Bilirubin AST ALT Alkaline Phosphatase B-Natriuretic Peptide Total Protein Albumin 10/21/22 10/22/22 10/22/22 20:50 07:35 07:57 WBC 10.0 RBC 3.28 L Hgb 9.6 L Hct 30.2 L MCV 92.1 MCH 29.3 MCHC 31.8 RDW 14.6 Plt Count 227 MPV 11.3 Immature Gran % (Auto) 1.3 H Neut % (Auto) 80.1 H Lymph % (Auto) 9.9 L [place] % (Auto) 6.5 Eos % (Auto) 1.9 Baso % (Auto) 0.3 Lymph # (Auto) 1.0 L [place] # (Auto) 0.7 Eos # (Auto) 0.2 Baso # (Auto) 0.0 Abs Immat Gran (auto) 0.13 H Absolute Neuts (auto) 8.0 Absolute Nucleated RBC 0.000 Nucleated RBC % (auto) 0.0 Sodium Potassium Chloride Carbon Dioxide Anion Gap BUN Creatinine Estim Creat Clear Calc Estimated GFR POC Glucose 148 H 148 H Random Glucose Fasting Glucose Lactic Acid Calcium Total Bilirubin Direct Bilirubin AST ALT Alkaline Phosphatase B-Natriuretic Peptide Total Protein Albumin 10/22/22 10/22/22 10/22/22 07:57 07:57 07:57 WBC RBC Hgb Hct MCV MCH MCHC RDW Plt Count MPV Immature Gran % (Auto) Neut % (Auto) Lymph % (Auto) [place] % (Auto) Eos % (Auto) Baso % (Auto) Lymph # (Auto) [place] # (Auto) Eos # (Auto) Baso # (Auto) Abs Immat Gran (auto) Absolute Neuts (auto) Absolute Nucleated RBC Nucleated RBC % (auto) Sodium 147 H Potassium 2.8 L Chloride 98 Carbon Dioxide 29 Anion Gap 23 H BUN 78 H Creatinine 3.24 H Estim Creat Clear Calc 14.5 Estimated GFR 14 POC Glucose Random Glucose 159 H Fasting Glucose Lactic Acid 0.4 L Calcium 8.5 Total Bilirubin 0.6 Direct Bilirubin 0.2 AST 12 ALT 10 Alkaline Phosphatase 81 B-Natriuretic Peptide Total Protein 6.6 Albumin 3.9 10/22/22 07:57 WBC RBC Hgb Hct MCV MCH MCHC RDW Plt Count MPV Immature Gran % (Auto) Neut % (Auto) Lymph % (Auto) [place] % (Auto) Eos % (Auto) Baso % (Auto) Lymph # (Auto) [place] # (Auto) Eos # (Auto) Baso # (Auto) Abs Immat Gran (auto) Absolute Neuts (auto) Absolute Nucleated RBC Nucleated RBC % (auto) Sodium Potassium Chloride Carbon Dioxide Anion Gap BUN Creatinine Estim Creat Clear Calc Estimated GFR POC Glucose Random Glucose Fasting Glucose Lactic Acid Calcium Total Bilirubin Direct Bilirubin AST ALT Alkaline Phosphatase B-Natriuretic Peptide 248 H Total Protein Albumin Microbiology Microbiology Results: Microbiology 10/17/22 08:45 Blood - Venous Blood Culture - Final No growth after 5 days. 10/17/22 08:57 Blood - Venous Blood Culture - Preliminary No growth after 48 hours. Procedures Date of Service Date of Service: 10/22/22 Assessment & Plan Assessment and plan (1) Acute kidney injury superimposed on CKD: Status: Acute Assessment and Plan: Has CKD 3b at baseline; Currently KEILA due to CRS/PNA Hypervolemic- responding to diuresis- C/W current dose of diuretics No ACEI/ARB/NSAID's for now No reason to suspect AIN/GN/Obstructive uropathy Continue rest of current supportive care for now; Labs AM Time Spent With Patient Time: . Progress Note: Quality Stroke Does the patient have a stroke diagnosis?: No
[2022-10-22 11:59] LABS: Glucose, Whole Blood 173 mg/dL (60-115)
--- NOTE | 2022-10-22 12:05 | MHC.SLORD ---
Addendum entered and electronically signed by TANIYA Rye 10/22/22 17:31: Per RN, pt reporting globus sensation when administered pills. Original Note: Addendum entered and electronically signed by Carmelina Price MA, [facility] 10/22/22 16:27: D.S. Original Note: Speech Language Pathology Order Status: 10/20 [facility] diet recommendation: pureed solids (NDD1) and thin liquids. Recommendation held d/t GI distress. Per check in w/ RN and PA, pt is currently advanced to clear liquid diet. [facility] to re-evaluate diet once pt is cleared to advance to solids.
[2022-10-22] MEDS: Insulin Lispro 100 UNIT/ML 3 ML VIAL SUBCUT ×2 (12:12→17:20)
--- NOTE | 2022-10-22 12:20 | PM.PNCARD ---
Subjective Subjective Date of Service: 10/22/22 Interval history: Seen examined at bedside. Feeling better. Abdominal pain is improving. Telemetry is showing sinus rhythm. Physical Exam Vital Signs: Last Vital Signs Temp 98.2 F 10/22/22 11:25 Pulse 76 10/22/22 11:25 Resp 20 10/22/22 11:25 BP 160/60 H 10/22/22 12:07 Pulse Ox 92 10/22/22 11:25 O2 Del Method Oxymask 10/22/22 11:25 O2 Flow Rate 6 10/22/22 11:25 FiO2 40 10/22/22 03:39 Oxygen Flow Rate 4 10/17/22 08:24 BMI result Body Mass Index 37.4 GENERAL APPEARANCE: Comfortable. On face mask. NECK: no carotid bruit, no significant jugular venous distention. SKIN: no suspicious lesions, warm and dry. HEART: no murmurs, regular rate and rhythm. LUNGS: Few crackles at bases. ABDOMEN: soft, tenderness in the epigastrium-mild. No rigidity. EXTREMITIES: no edema. PERIPHERAL PULSES: equal. NEUROLOGIC: No gross deficits, AAO X 3 Objective Labs and Meds 10/22/22 07:57 10/22/22 07:57 Lab results: Laboratory Results - last 24 hr 10/21/22 10/21/22 10/21/22 16:30 18:32 20:50 WBC RBC Hgb Hct MCV MCH MCHC RDW Plt Count MPV Immature Gran % (Auto) Neut % (Auto) Lymph % (Auto) [place] % (Auto) Eos % (Auto) Baso % (Auto) Lymph # (Auto) [place] # (Auto) Eos # (Auto) Baso # (Auto) Abs Immat Gran (auto) Absolute Neuts (auto) Absolute Nucleated RBC Nucleated RBC % (auto) Sodium 146 H Potassium 3.1 L D Chloride 99 Carbon Dioxide 31 H Anion Gap 19 BUN 75 H Creatinine 3.01 H Estim Creat Clear Calc 15.6 Estimated GFR 15 POC Glucose 180 H 148 H Random Glucose Fasting Glucose 159 H Lactic Acid Calcium 8.8 Total Bilirubin Direct Bilirubin AST ALT Alkaline Phosphatase B-Natriuretic Peptide Total Protein Albumin 10/22/22 10/22/22 10/22/22 07:35 07:57 07:57 WBC 10.0 RBC 3.28 L Hgb 9.6 L Hct 30.2 L MCV 92.1 MCH 29.3 MCHC 31.8 RDW 14.6 Plt Count 227 MPV 11.3 Immature Gran % (Auto) 1.3 H Neut % (Auto) 80.1 H Lymph % (Auto) 9.9 L [place] % (Auto) 6.5 Eos % (Auto) 1.9 Baso % (Auto) 0.3 Lymph # (Auto) 1.0 L [place] # (Auto) 0.7 Eos # (Auto) 0.2 Baso # (Auto) 0.0 Abs Immat Gran (auto) 0.13 H Absolute Neuts (auto) 8.0 Absolute Nucleated RBC 0.000 Nucleated RBC % (auto) 0.0 Sodium 147 H Potassium 2.8 L Chloride 98 Carbon Dioxide 29 Anion Gap 23 H BUN 78 H Creatinine 3.24 H Estim Creat Clear Calc 14.5 Estimated GFR 14 POC Glucose 148 H Random Glucose 159 H Fasting Glucose Lactic Acid Calcium 8.5 Total Bilirubin Direct Bilirubin AST ALT Alkaline Phosphatase B-Natriuretic Peptide Total Protein Albumin 10/22/22 10/22/22 10/22/22 07:57 07:57 07:57 WBC RBC Hgb Hct MCV MCH MCHC RDW Plt Count MPV Immature Gran % (Auto) Neut % (Auto) Lymph % (Auto) [place] % (Auto) Eos % (Auto) Baso % (Auto) Lymph # (Auto) [place] # (Auto) Eos # (Auto) Baso # (Auto) Abs Immat Gran (auto) Absolute Neuts (auto) Absolute Nucleated RBC Nucleated RBC % (auto) Sodium Potassium Chloride Carbon Dioxide Anion Gap BUN Creatinine Estim Creat Clear Calc Estimated GFR POC Glucose Random Glucose Fasting Glucose Lactic Acid 0.4 L Calcium Total Bilirubin 0.6 Direct Bilirubin 0.2 AST 12 ALT 10 Alkaline Phosphatase 81 B-Natriuretic Peptide 248 H Total Protein 6.6 Albumin 3.9 10/22/22 11:53 WBC RBC Hgb Hct MCV MCH MCHC RDW Plt Count MPV Immature Gran % (Auto) Neut % (Auto) Lymph % (Auto) [place] % (Auto) Eos % (Auto) Baso % (Auto) Lymph # (Auto) [place] # (Auto) Eos # (Auto) Baso # (Auto) Abs Immat Gran (auto) Absolute Neuts (auto) Absolute Nucleated RBC Nucleated RBC % (auto) Sodium Potassium Chloride Carbon Dioxide Anion Gap BUN Creatinine Estim Creat Clear Calc Estimated GFR POC Glucose 173 H Random Glucose Fasting Glucose Lactic Acid Calcium Total Bilirubin Direct Bilirubin AST ALT Alkaline Phosphatase B-Natriuretic Peptide Total Protein Albumin Progress Note: A&P Assessment and plan (1) PAF (paroxysmal atrial fibrillation): Status: Acute (2) Acute on chronic diastolic CHF (congestive heart failure): Status: Acute (3) Acute kidney injury superimposed on CKD: Status: Acute Plan Pleasant 77-year-old female with diastolic heart failure. She is improving with diuretics. Her creatinine is slightly worse today and she has hypokalemia. Avoid further metolazone. I discussed with Nephrology and they are in favor of continuing IV diuretics today and potentially transition to oral tomorrow. Monitor potassium closely. Blood pressure is elevated. Add amlodipine 2.5 mg once a day and titrate based on blood pressure. Paroxysmal atrial fibrillation-she is on amiodarone 400 mg b.i.d.. Continue for next 7 days and then transition to 200 mg daily. She should be anticoagulated if there is no obvious bleeding concerns or surgical interventions planned. Thank you for allowing me to participate in the care of your patient. Please feel free to contact me if you have any questions. Time Spent With Patient Time: Total time managing care of this patient today ____ minutes. Progress Note: Quality Stroke Does the patient have a stroke diagnosis?: No Procedures Date of Service Date of Service: 10/22/22
--- NOTE | 2022-10-22 12:56 | MHC.CM.PN ---
EMR REVIEWED, PER SURGICAL NOTE PT AND ORDERS PT ADVANCED TO CLEAR LIQUID DIET, NO PLAN FOR D/C AT THIS TIME, ANTIC PT WILL NEED PT EVAL AND POSSIBLE STR ONCE MEDICALLY CLEARED, CM WILL CONT TO FOLLOW D/C NEEDS.
[2022-10-22] MEDS: Bumetanide 25 MG in Container,Empty 0 ML 4 MG IVCONT (13:39)
[2022-10-22] MEDS: Acetaminophen 325 MG TABLET 650 MG PO (13:39)
--- NOTE | 2022-10-22 14:18 | MHC.CM.PN ---
CM MET W/PT AND PT'S AT BEDSIDE TO DISCUSS ANTIC NEED FOR STR, PT'S REPORTS THEY WOULD PREFER [facility] HOWEVER IS AWARE PT MAY NOT BE OFFERED BEDS AT EITHER OF THOSE FACILITIES, REFERRALS PLACED VIA [facility].
--- NOTE | 2022-10-22 14:34 | HO.PM.IMPN ---
Subjective Subjective Date of Service: 10/22/22 Interval History: seen and examined this morning follow up for respiratory failure, chf, colitis reporting shortness of breath, reports improvement in abdominal pain Review of Systems Review of Systems: Yes all other systems are reviewed and are negative Constitutional Constitutional: Denies chills and Denies fever(s) ENT Ears, Nose, Mouth, and Throat: Denies dizziness Cardiovascular Cardiovascular: Denies chest pain, Denies palpitations and Reports dyspnea Respiratory Respiratory: Reports cough and Reports dyspnea Gastrointestinal Gastrointestinal: Reports abdominal pain and Denies vomiting Neurologic Neurologic: Denies dizziness Endocrine Endocrine: Denies palpitations Physical Exam Vital Signs: Vital Signs: Last Vital Signs Temp 98.2 F 10/22/22 11:25 Pulse 76 10/22/22 11:25 Resp 20 10/22/22 11:25 BP 160/60 H 10/22/22 12:07 Pulse Ox 92 10/22/22 11:25 O2 Del Method Oxymask 10/22/22 11:25 O2 Flow Rate 6 10/22/22 11:25 FiO2 40 10/22/22 03:39 Oxygen Flow Rate 4 10/17/22 08:24 BMI result Body Mass Index 37.4 Const: Other: somewhat anxious General: alert and awake Nutritional Appearance: overweight Orientation/consciousness: oriented to person and oriented to place Resp: Other: basilar crackles; decreased respiratory effort Cardio: Rate: regular rate Heart sounds: S1 normal heart sound present and S2 normal heart sound present GI: Other: some epigastric discomfort Palpation (GI): Soft to palpation Neuro: Other: no focal deficits appreciated General: oriented to person and oriented to place Extrem: Other: no leg edema Objective Data Active Medications Acetaminophen (Acetaminophen 325 Mg Tablet) 650 mg PO Q6H PRN PRN Reason: Pain, Mild (Pain Scale 1-3) Last Admin: 10/22/22 13:39 Dose: 650 mg Documented By: DARLENE Amiodarone HCl (Amiodarone Hcl 200 Mg Tablet) 400 mg PO BID YADY Docusate Sodium (Docusate Sodium 100 Mg Capsule) 100 mg PO DAILY PRN PRN Reason: Constipation Glucose (Glucose Gel 15 Gm Gel..Gram.) 15 gm PO Q15M PRN; Protocol PRN Reason: per Hypoglycemia Standing Ord. Heparin Sodium (Porcine) (Heparin Sodium,Porcine 5,000 Unit/Ml Vial) 5,000 unit SUBCUT Q12H [facility] Last Admin: 10/22/22 05:44 Dose: 5,000 unit Documented By: ARCELIA Dextrose (D10) 250 mls @ 750 mls/hr IV Q15M PRN; Protocol PRN Reason: per Hypoglycemia Standing Ord. Bumetanide 25 mg/ IV (Miscellaneous Supplies) 100 mls @ 4 mls/hr IVCONT .Q24H [facility] Last Admin: 10/22/22 13:39 Dose: 1 mg/hr, 4 mls/hr Documented By: DARLENE Piperacillin Sod/Tazobactam (Sod 4.5 gm/ Sodium Chloride) 100 mls @ 200 mls/hr IV Q12H [facility] Last Infusion: 10/22/22 07:09 Dose: 0 mls/hr Documented By: ARCELIA Doxycycline Hyclate 100 mg/ (Sodium Chloride) 250 mls @ 166.67 mls/hr IV Q12H [facility] Last Infusion: 10/22/22 08:47 Dose: 0 mls/hr Documented By: DARLENE Insulin Human Lispro (Insulin Lispro 100 Unit/Ml 3 Ml Vial) 0 unit SUBCUT QIDACHS [facility]; Protocol Last Admin: 10/22/22 12:12 Dose: 2 unit Documented By: DARLENE Isosorbide Mononitrate (Isosorbide Mononitrate 60 Mg Tab.Er.24h) 60 mg PO DAILY [facility]; Protocol Last Admin: 10/22/22 08:59 Dose: 60 mg Documented By: DARLENE Levothyroxine Sodium (Levothyroxine Sodium 50 Mcg Tablet) 50 mcg PO DAILY@0630 [facility] Last Admin: 10/22/22 05:44 Dose: 50 mcg Documented By: ARCELIA Lorazepam (Lorazepam 2 Mg/Ml Vial) 0.25 mg IVPUSH Q6H PRN PRN Reason: anxiety Morphine Sulfate (Morphine Sulfate 2 Mg/Ml Cartridge) 1 mg IVPUSH Q3H PRN; Protocol PRN Reason: sob Last Admin: 10/22/22 12:12 Dose: 1 mg Documented By: DARLENE Omeprazole (Omeprazole 20 Mg Capsule.Dr) 20 mg PO BID@0630,1630 [facility] Last Admin: 10/22/22 05:44 Dose: 20 mg Documented By: ARCELIA Ondansetron HCl (Ondansetron Hcl 4 Mg/2 Ml Vial) 4 mg IVPUSH Q6H PRN PRN Reason: Nausea and Vomiting Pantoprazole Sodium (Pantoprazole Sodium 40 Mg/10 Ml Vial) 40 mg IVPUSH DAILY@0630 [facility] Last Admin: 10/22/22 05:37 Dose: 40 mg Documented By: ARCELIA Polyethylene Glycol (Polyethylene Glycol 3350 17 Gm Powd.Pack) 17 gm PO BID [facility] Last Admin: 10/22/22 08:42 Dose: Not Given Documented By: DARLENE Non-Admin Reason: loose stool Potassium Chloride (Potassium Chloride Packet 20 Meq Packet) 40 meq PO BID [facility] Stop: 10/22/22 21:01 Last Admin: 10/22/22 10:29 Dose: 40 meq Documented By: DARLENE Sodium Chloride (0.9 % Sodium Chloride Flush 3 Ml Syringe) 3 ml IVFLUSH QSHIFT [facility] Last Admin: 10/22/22 08:47 Dose: 3 ml Documented By: DARLENE Vancomycin HCl (Vancomycin Hcl 125 Mg Capsule) 250 mg PO Q6H [facility] Stop: 10/31/22 12:59 Last Admin: 10/22/22 13:39 Dose: 250 mg Documented By: DARLENE Labs 10/22/22 07:57 10/22/22 07:57 Labs: Laboratory Results - last 24 hr 10/21/22 10/21/22 10/21/22 16:30 18:32 20:50 MCV MCH MCHC RDW Plt Count MPV Immature Gran % (Auto) Neut % (Auto) Lymph % (Auto) Ritchie % (Auto) Eos % (Auto) Baso % (Auto) Lymph # (Auto) Ritchie # (Auto) Eos # (Auto) Baso # (Auto) Abs Immat Gran (auto) Absolute Neuts (auto) Absolute Nucleated RBC Nucleated RBC % (auto) Anion Gap 19 Estim Creat Clear Calc 15.6 Estimated GFR 15 POC Glucose 180 H 148 H Random Glucose Fasting Glucose 159 H Lactic Acid Calcium 8.8 Total Bilirubin Direct Bilirubin AST ALT Alkaline Phosphatase B-Natriuretic Peptide Total Protein Albumin 10/22/22 10/22/22 10/22/22 07:35 07:57 07:57 MCV 92.1 MCH 29.3 MCHC 31.8 RDW 14.6 Plt Count 227 MPV 11.3 Immature Gran % (Auto) 1.3 H Neut % (Auto) 80.1 H Lymph % (Auto) 9.9 L Ritchie % (Auto) 6.5 Eos % (Auto) 1.9 Baso % (Auto) 0.3 Lymph # (Auto) 1.0 L Ritchie # (Auto) 0.7 Eos # (Auto) 0.2 Baso # (Auto) 0.0 Abs Immat Gran (auto) 0.13 H Absolute Neuts (auto) 8.0 Absolute Nucleated RBC 0.000 Nucleated RBC % (auto) 0.0 Anion Gap 23 H Estim Creat Clear Calc 14.5 Estimated GFR 14 POC Glucose 148 H Random Glucose 159 H Fasting Glucose Lactic Acid Calcium 8.5 Total Bilirubin Direct Bilirubin AST ALT Alkaline Phosphatase B-Natriuretic Peptide Total Protein Albumin 10/22/22 10/22/22 10/22/22 07:57 07:57 07:57 MCV MCH MCHC RDW Plt Count MPV Immature Gran % (Auto) Neut % (Auto) Lymph % (Auto) Ritchie % (Auto) Eos % (Auto) Baso % (Auto) Lymph # (Auto) Ritchie # (Auto) Eos # (Auto) Baso # (Auto) Abs Immat Gran (auto) Absolute Neuts (auto) Absolute Nucleated RBC Nucleated RBC % (auto) Anion Gap Estim Creat Clear Calc Estimated GFR POC Glucose Random Glucose Fasting Glucose Lactic Acid 0.4 L Calcium Total Bilirubin 0.6 Direct Bilirubin 0.2 AST 12 ALT 10 Alkaline Phosphatase 81 B-Natriuretic Peptide 248 H Total Protein 6.6 Albumin 3.9 10/22/22 11:53 MCV MCH MCHC RDW Plt Count MPV Immature Gran % (Auto) Neut % (Auto) Lymph % (Auto) Ritchie % (Auto) Eos % (Auto) Baso % (Auto) Lymph # (Auto) Ritchie # (Auto) Eos # (Auto) Baso # (Auto) Abs Immat Gran (auto) Absolute Neuts (auto) Absolute Nucleated RBC Nucleated RBC % (auto) Anion Gap Estim Creat Clear Calc Estimated GFR POC Glucose 173 H Random Glucose Fasting Glucose Lactic Acid Calcium Total Bilirubin Direct Bilirubin AST ALT Alkaline Phosphatase B-Natriuretic Peptide Total Protein Albumin Microbiology Microbiology Results: Microbiology 10/17/22 08:57 Blood Culture - Final Blood - Venous No growth after 5 days. 10/17/22 08:45 Blood Culture - Final Blood - Venous No growth after 5 days. Assessment and Plan (1) PAF (paroxysmal atrial fibrillation): Status: Acute (2) Acute on chronic diastolic CHF (congestive heart failure): Status: Acute (3) Acute kidney injury superimposed on CKD: Status: Acute (4) Acute respiratory failure with hypoxia and hypercapnia: Status: Acute Plan This is a 77-year-old female with history of HFpEF, T2DM, HTN, CKD 3/4, chronic back/neck pain secondary to spinal stenosis who presents to the emergency department with complaints of shortness of breath found to have acute respiratory failure secondary to CHF Cdiff gene pos, A&B negative will treat in light off diarrhea Vancomycin oral 10 days Acute respiratory failure with hypoxia / hypercarbia secondary bilateral pna, CHF flu/RSV/covid negative. Intermittent BiPAP, oxymask normal ABG acute on chronic HFpEF echo 10/20/22 normal EF, severe pulm HTN continue Bumex 1mg/hr increased isosorbide to 60mg daily, s/p metolazone x1 monitor I&O weights cardio following BNP trending down Colitis, extensive with abd pain. Ischemic vs infectious in light of cdiff GI following normal abd doppler elevated procalcitonin started on Zosyn may need to consider alternative nutrition if patient remains unable to eat due to pain seen by general surgery, no surgical intervention required at this time will trial clear liquids Bilateral pneumonia continue Zosyn and Doxycycline started 10/20 blood cultures negative KEILA on CKD 4 r/t congestion from CHF, should improve with diuresis follow renal function no alejandra/arb or nsaids as per nephro nephrology following paroxysmal atrial fibrillation now in sinus started on amiodarone 400 mg bid for 7 days, then change to 200 mg daily consider AC with apixiban hypokalemia k 2.8 replace and follow levels check magnesium labile mood ativan prn for anxiety Constipation. having diarrhea hold bowel reg HTN home dose of metoprolol and norvasc d/c in ICU was previously on norvasc 10, cards rec to resume 2.5 and uptitrate continue imdur T2DM SSI, ADA diet hypothyroid continue synthroid chronic pain gabapentin and home dose of oxycodone d/c during ICU stay receiving IV morphine for abdominal pain Gerd continue omeprazole Morbid obesity bmi 36.9 weight loss encouraged dvt ppx -heparin code status - Full code attending Dr. Alford patient requires ongoing stay in the hospital for management of respiratory failure, CHF requiring IV diuresis, specialist consultation, close monitoring of respiratory status Time Spent With Patient Time: Total time managing care of this patient today ____ minutes. Quality Stroke Does the patient have a stroke diagnosis?: No VTE Prior VTE?: No VTE Risk Level:: Medical - moderate - high VTE Device Contraindication: N/A - Device Ordered VTE Drug Contraindication: N/A - Med Ordered
[2022-10-22] MEDS: amLODIPine Besylate 2.5 MG TABLET PO (15:45)
[2022-10-22] MEDS: LORazepam 2 MG/ML VIAL 0.25 MG IVPUSH ×2 (15:45→21:55)
[2022-10-22 16:46] LABS: Glucose, Whole Blood 165 mg/dL (60-115)
[2022-10-22 17:13] LABS: Magnesium 2.3 mg/dL (1.6-2.6)
[2022-10-22 21:01] LABS: Glucose, Whole Blood 82 mg/dL (60-115)
[2022-10-22] MEDS: guaiFENesin LA 600 MG TAB.ER.12H PO (21:05)
[2022-10-23] VITALS (9 sets, daily range): BP systolic 118–172; BP diastolic 58–74; PULSE 67–81; RESP 17–22; TEMP 36.1–37.2; O2SAT 91–99
[2022-10-23] MEDS: vancomycin HCL 125 MG CAPSULE 250 MG PO ×4 (00:08→20:36)
[2022-10-23] MEDS: Heparin Sodium,Porcine 5,000 UNIT/ML VIAL 5000 UNIT SUBCUT (04:56)
[2022-10-23] MEDS: Pantoprazole Sodium 40 MG/10 ML VIAL IVPUSH (04:56)
[2022-10-23] MEDS: Levothyroxine Sodium 50 MCG TABLET PO (04:56)
[2022-10-23] MEDS: Omeprazole 20 MG CAPSULE.DR PO ×2 (04:56→16:58)
[2022-10-23] MEDS: Morphine Sulfate 2 MG/ML CARTRIDGE 1 MG IVPUSH ×4 (05:01→21:08)
[2022-10-23] MEDS: LORazepam 2 MG/ML VIAL 0.25 MG IVPUSH ×3 (05:01→20:37)
[2022-10-23] MEDS: Doxycycline Hyclate 100 MG in 0.9 % Sodium Chloride 250 ML 166.67 MG IV ×2 (05:04→18:39)
[2022-10-23] MEDS: Piperacillin Sodium/Tazobactam 4.5 GM in 0.9 % Sodium Chloride 100 ML IV ×2 (06:37→18:38)
[2022-10-23 07:17] LABS: Glucose, Whole Blood 98 mg/dL (60-115)
[2022-10-23 07:21] LABS: Anion Gap 15 (12-20); Blood Urea Nitrogen 79 mg/dL (9-16); Calcium 8.5 mg/dL (8.4-10.2); Carbon Dioxide 33 mmol/L (22-29); Chloride 101 mmol/L (96-108); Creatinine Clr Calc Pharmacy 13.3; Estimated Glomerular Filt Rate 12; Glucose Random 91 mg/dL (60-115); Potassium 3.3 mmol/L (3.3-5.1); Sodium 146 mmol/L (135-145)
[2022-10-23] MEDS: Acetaminophen 325 MG TABLET 650 MG PO (09:22)
[2022-10-23] MEDS: Isosorbide Mononitrate 60 MG TAB.ER.24H PO (09:23)
[2022-10-23] MEDS: amLODIPine Besylate 2.5 MG TABLET PO (09:23)
[2022-10-23] MEDS: Amiodarone HCL 200 MG TABLET 400 MG PO ×2 (09:23→20:37)
[2022-10-23] MEDS: guaiFENesin LA 600 MG TAB.ER.12H PO (09:23)
[2022-10-23] MEDS: 0.9 % Sodium Chloride Flush 3 ML SYRINGE IVFLUSH ×2 (09:23→20:38)
--- NOTE | 2022-10-23 10:21 | P.PNCA_ITS ---
Subjective Subjective Date of Service: 10/23/22 Interval history: Seen examined at bedside. Still on face mask but saying her breathing is improving. Still has epigastric pain but improving overall. Continues to be on Bumex drip. Physical Exam Vital Signs: Last Vital Signs Temp 97.3 F 10/23/22 07:07 Pulse 70 10/23/22 07:07 Resp 18 10/23/22 07:07 BP 136/74 10/23/22 07:07 Pulse Ox 91 L 10/23/22 07:07 O2 Del Method Oxymask 10/23/22 07:07 O2 Flow Rate 4 10/23/22 07:07 FiO2 40 10/22/22 23:46 Oxygen Flow Rate 4 10/17/22 08:24 BMI result Body Mass Index 37.4 GENERAL APPEARANCE: Comfortable. On face mask. NECK: no carotid bruit, no significant jugular venous distention. SKIN: no suspicious lesions, warm and dry. HEART: no murmurs, regular rate and rhythm. LUNGS: Few crackles at bases. ABDOMEN: soft, tenderness in the epigastrium-mild. No rigidity. EXTREMITIES: no edema. PERIPHERAL PULSES: equal. NEUROLOGIC: No gross deficits, AAO X 3 Objective Labs and Meds 10/22/22 07:57 10/23/22 06:30 Lab results: Laboratory Results - last 24 hr 10/22/22 10/22/22 10/22/22 07:57 11:53 16:42 Sodium Potassium Chloride Carbon Dioxide Anion Gap BUN Creatinine Estim Creat Clear Calc Estimated GFR POC Glucose 173 H 165 H Random Glucose Calcium Magnesium 2.3 10/22/22 10/23/22 10/23/22 20:54 06:30 07:11 Sodium 146 H Potassium 3.3 Chloride 101 Carbon Dioxide 33 H Anion Gap 15 BUN 79 H Creatinine 3.57 H Estim Creat Clear Calc 13.3 Estimated GFR 12 POC Glucose 82 98 Random Glucose 91 Calcium 8.5 Magnesium Progress Note: A&P Assessment and plan (1) PAF (paroxysmal atrial fibrillation): Status: Acute (2) Acute on chronic diastolic CHF (congestive heart failure): Status: Acute Plan 77-year-old female with diastolic heart failure and advanced kidney issues who presented with hypoxic respiratory failure in the setting of congestive heart failure. She also had paroxysmal atrial fibrillation. She was started on amiodarone and has been in sinus rhythm mostly. Apixaban 5 mg b.i.d. was also added to her regimen. Has diuresed well and overall by my examination appears to be euvolemic now. She has been transitioned to oral torsemide. She is also on antibiotics currently. Amiodarone should be continued at 400 mg b.i.d. for 10 days and then should be changed to 200 mg once a day. She should be on long- term anticoagulation with apixaban because she has risk of developing atrial fibrillation and is high risk for stroke. Thank you for allowing me to participate in the care of your patient. Please feel free to contact me if you have any questions. Time Spent With Patient Time: Total time managing care of this patient today ____ minutes. Progress Note: Quality Stroke Does the patient have a stroke diagnosis?: No Procedures Date of Service Date of Service: 10/23/22
--- NOTE | 2022-10-23 10:25 | PM.PNNEP ---
Subjective Subjective Date of Service: 10/23/22 Interval history: seen and examined this morning. Emotionally labile. All recent data reviewed Physical Exam Vital Signs: Vital Signs: Last Vital Signs Temp 97.3 F 10/23/22 07:07 Pulse 70 10/23/22 07:07 Resp 18 10/23/22 07:07 BP 136/74 10/23/22 07:07 Pulse Ox 91 L 10/23/22 07:07 O2 Del Method Oxymask 10/23/22 07:07 O2 Flow Rate 4 10/23/22 07:07 FiO2 40 10/22/22 23:46 Oxygen Flow Rate 4 10/17/22 08:24 BMI result Body Mass Index 37.4 Const: General: no acute distress Eyes: EOM: EOMs intact bilaterally Resp: Auscultation: diminished lung sounds Cardio: Rate: regular rate GI: Palpation (GI): Soft to palpation Skin: General skin exam: no rashes or lesions noted Neuro: General: moves all extremities Objective Data Labs 10/22/22 07:57 10/23/22 06:30 Labs: Laboratory Results - last 24 hr 10/22/22 10/22/22 10/22/22 07:57 11:53 16:42 Sodium Potassium Chloride Carbon Dioxide Anion Gap BUN Creatinine Estim Creat Clear Calc Estimated GFR POC Glucose 173 H 165 H Random Glucose Calcium Magnesium 2.3 10/22/22 10/23/22 10/23/22 20:54 06:30 07:11 Sodium 146 H Potassium 3.3 Chloride 101 Carbon Dioxide 33 H Anion Gap 15 BUN 79 H Creatinine 3.57 H Estim Creat Clear Calc 13.3 Estimated GFR 12 POC Glucose 82 98 Random Glucose 91 Calcium 8.5 Magnesium Microbiology Microbiology Results: Microbiology 10/17/22 08:57 Blood - Venous Blood Culture - Final No growth after 5 days. 10/17/22 08:45 Blood - Venous Blood Culture - Final No growth after 5 days. Procedures Date of Service Date of Service: 10/23/22 Assessment & Plan Assessment and plan (1) Acute kidney injury superimposed on CKD: Status: Acute Assessment and Plan: Has CKD 3b at baseline; Currently KEILA due to CRS/PNA Hypervolemic- responded to IV diuresis Shall switch to PO torsemide 40 mg bid today No ACEI/ARB/NSAID's for now No reason to suspect AIN/GN/Obstructive uropathy Continue rest of current supportive care for now; Labs AM Progress Note: Quality Stroke Does the patient have a stroke diagnosis?: No
--- NOTE | 2022-10-23 11:09 | P.PNIM_ITS ---
Subjective Subjective Date of Service: 10/23/22 Interval History: seen and examined this morning Follow-up for respiratory failure,CHF, pneumonia, C diff still emotionally labile, frequently crying says that her abdominal pain is getting better Review of Systems Review of Systems: Yes all other systems are reviewed and are negative Constitutional Constitutional: Denies chills and Denies fever(s) Cardiovascular Cardiovascular: Denies chest pain, Denies palpitations and Denies dyspnea Respiratory Respiratory: Denies dyspnea Gastrointestinal Gastrointestinal: Reports abdominal pain, Denies nausea and Denies vomiting Endocrine Endocrine: Denies palpitations Physical Exam Vital Signs: Vital Signs: Last Vital Signs Temp 97.3 F 10/23/22 07:07 Pulse 70 10/23/22 07:07 Resp 18 10/23/22 07:07 BP 136/74 10/23/22 07:07 Pulse Ox 91 L 10/23/22 07:07 O2 Del Method Oxymask 10/23/22 07:07 O2 Flow Rate 4 10/23/22 07:07 FiO2 40 10/22/22 23:46 Oxygen Flow Rate 4 10/17/22 08:24 BMI result Body Mass Index 37.4 Const: Other: somewhat anxious General: alert and awake Nutritional Appearance: overweight Luis Fernando entation/consciousness: patient oriented x3 Resp: Other: decreased respiratory effort, diminished breath sounds Effort & Inspection: able to speak in complete sentences, no respiratory distress and no use of accessory muscles Cardio: Rate: regular rate Heart sounds: S1 normal heart sound present and S2 normal heart sound present GI: Other: some epigastric discomfort Inspection: No distended Palpation (GI): Soft to palpation and nontender Neuro: Other: no focal deficits appreciated General: patient oriented x3, moves all extremities and CN's II-XI intact bilaterally Extrem: Other: no leg edema General: Yes no pedal edema Objective Data Active Medications Acetaminophen (Acetaminophen 325 Mg Tablet) 650 mg PO Q6H PRN PRN Reason: Pain, Mild (Pain Scale 1-3) Last Admin: 10/23/22 09:22 Dose: 650 mg Documented By: JOSE Amiodarone HCl (Amiodarone Hcl 200 Mg Tablet) 400 mg PO BID YADY Last Admin: 10/23/22 09:23 Dose: 400 mg Documented By: JOSE Amlodipine Besylate (Amlodipine Besylate 2.5 Mg Tablet) 2.5 mg PO DAILY [facility]; Protocol Last Admin: 10/23/22 09:23 Dose: 2.5 mg Documented By: JOSE Apixaban (Apixaban 5 Mg Tablet) 5 mg PO BID [facility] Docusate Sodium (Docusate Sodium 100 Mg Capsule) 100 mg PO DAILY PRN PRN Reason: Constipation Glucose (Glucose Gel 15 Gm Gel..Gram.) 15 gm PO Q15M PRN; Protocol PRN Reason: per Hypoglycemia Standing Ord. Guaifenesin (Guaifenesin La 600 Mg Tab.Er.12h) 600 mg PO BID [facility] Last Admin: 10/23/22 09:23 Dose: 600 mg Documented By: JOSE Dextrose (D10) 250 mls @ 750 mls/hr IV Q15M PRN; Protocol PRN Reason: per Hypoglycemia Standing Ord. Piperacillin Sod/Tazobactam (Sod 4.5 gm/ Sodium Chloride) 100 mls @ 200 mls/hr IV Q12H [facility] Last Infusion: 10/23/22 08:11 Dose: 0 mls/hr Documented By: JOSE Doxycycline Hyclate 100 mg/ (Sodium Chloride) 250 mls @ 166.67 mls/hr IV Q12H [facility] Last Infusion: 10/23/22 06:48 Dose: 0 mls/hr Documented By: KELLI Insulin Human Lispro (Insulin Lispro 100 Unit/Ml 3 Ml Vial) 0 unit SUBCUT QIDACHS [facility]; Protocol Last Admin: 10/23/22 08:57 Dose: Not Given Documented By: JOSE Non-Admin Reason: No Insulin Coverage Isosorbide Mononitrate (Isosorbide Mononitrate 60 Mg Tab.Er.24h) 60 mg PO DAILY [facility]; Protocol Last Admin: 10/23/22 09:23 Dose: 60 mg Documented By: JOSE Levothyroxine Sodium (Levothyroxine Sodium 50 Mcg Tablet) 50 mcg PO DAILY@0630 [facility] Last Admin: 10/23/22 04:56 Dose: 50 mcg Documented By: KELLI Lorazepam (Lorazepam 2 Mg/Ml Vial) 0.25 mg IVPUSH Q6H PRN PRN Reason: anxiety Last Admin: 10/23/22 05:01 Dose: 0.25 mg Documented By: KELLI Morphine Sulfate (Morphine Sulfate 2 Mg/Ml Cartridge) 1 mg IVPUSH Q3H PRN; Protocol PRN Reason: sob Last Admin: 10/23/22 05:01 Dose: 1 mg Documented By: KELLI Omeprazole (Omeprazole 20 Mg Capsule.) 20 mg PO BID@0630,1630 [facility] Last Admin: 10/23/22 04:56 Dose: 20 mg Documented By: KELLI Ondansetron HCl (Ondansetron Hcl 4 Mg/2 Ml Vial) 4 mg IVPUSH Q6H PRN PRN Reason: Nausea and Vomiting Pantoprazole Sodium (Pantoprazole Sodium 40 Mg/10 Ml Vial) 40 mg IVPUSH DAILY@0630 [facility] Last Admin: 10/23/22 04:56 Dose: 40 mg Documented By: KELLI Polyethylene Glycol (Polyethylene Glycol 3350 17 Gm Powd.Pack) 17 gm PO BID [facility] Last Admin: 10/22/22 08:42 Dose: Not Given Documented By: DARLENE Non-Admin Reason: loose stool Sodium Chloride (0.9 % Sodium Chloride Flush 3 Ml Syringe) 3 ml IVFLUSH QSHIFT [facility] Last Admin: 10/23/22 09:23 Dose: 3 ml Documented By: JOSE Torsemide (Torsemide 20 Mg Tablet) 40 mg PO BID [facility]; Protocol Vancomycin HCl (Vancomycin Hcl 125 Mg Capsule) 250 mg PO Q6H [facility] Stop: 10/31/22 12:59 Last Admin: 10/23/22 06:35 Dose: 250 mg Documented By: KELLI Labs 10/22/22 07:57 10/23/22 06:30 Labs: Laboratory Results - last 24 hr 10/22/22 10/22/22 10/22/22 07:57 11:53 16:42 Anion Gap Estim Creat Clear Calc Estimated GFR POC Glucose 173 H 165 H Random Glucose Calcium Magnesium 2.3 10/22/22 10/23/22 10/23/22 20:54 06:30 07:11 Anion Gap 15 Estim Creat Clear Calc 13.3 Estimated GFR 12 POC Glucose 82 98 Random Glucose 91 Calcium 8.5 Magnesium Microbiology Microbiology Results: Microbiology 10/17/22 08:57 Blood Culture - Final Blood - Venous No growth after 5 days. 10/17/22 08:45 Blood Culture - Final Blood - Venous No growth after 5 days. Assessment and Plan (1) PAF (paroxysmal atrial fibrillation): Status: Acute (2) Acute on chronic diastolic CHF (congestive heart failure): Status: Acute (3) Acute respiratory failure with hypoxia and hypercapnia: Status: Acute (4) Acute kidney injury superimposed on CKD: Status: Acute Plan This is a 77-year-old female with history of HFpEF, T2DM, HTN, CKD 3/4, chronic back/neck pain secondary to spinal stenosis who presents to the emergency department with complaints of shortness of breath found to have acute respiratory failure secondary to CHF Cdiff gene pos, A&B negative will treat in light off diarrhea Vancomycin oral 10 days Acute respiratory failure with hypoxia / hypercarbia secondary bilateral pna, CHF flu/RSV/covid negative. Intermittent BiPAP, oxymask normal ABG acute on chronic HFpEF echo 10/20/22 normal EF, severe pulm HTN Neg >5L to date. BNP trending down stop Bumex drip, transition back to home torsemide 40 bid increased isosorbide to 60mg daily cardio following Colitis, extensive with abd pain. Ischemic vs infectious in light of cdiff GI following normal abd doppler elevated procalcitonin continue Zosyn seen by general surgery, no surgical intervention required at this time will trial clear liquids Bilateral pneumonia continue Zosyn and Doxycycline started 10/20 blood cultures negative KEILA on CKD 4 Cardiorenal follow renal function no alejandra/arb or nsaids as per nephro nephrology following paroxysmal atrial fibrillation now in sinus started on amiodarone 400 mg bid for 10 days, then change to 200 mg daily AC with Eliquis hypokalemia k 2.8 replace and follow levels check magnesium labile mood ativan prn for anxiety Constipation. having diarrhea hold bowel reg HTN home dose of metoprolol and norvasc d/c in ICU was previously on norvasc 10, cards rec to resume 2.5, increase to 5mg continue imdur T2DM SSI, ADA diet hypothyroid continue synthroid chronic pain gabapentin and home dose of oxycodone d/c during ICU stay receiving IV morphine for abdominal pain Gerd continue omeprazole Morbid obesity bmi 36.9 weight loss encouraged dvt ppx - Eliquis code status - Full code attending Dr. Alford patient requires ongoing stay in the hospital for management of respiratory failure, CHF requiring IV diuresis, specialist consultation, close monitoring of respiratory status Time Spent With Patient Time: Total time managing care of this patient today ____ minutes. Quality Stroke Does the patient have a stroke diagnosis?: No VTE Prior VTE?: No VTE Risk Level:: Medical - moderate - high VTE Device Contraindication: N/A - Device Ordered VTE Drug Contraindication: N/A - Med Ordered
[2022-10-23 11:23] LABS: Glucose, Whole Blood 93 mg/dL (60-115)
[2022-10-23] MEDS: Potassium Chloride Packet 20 MEQ PACKET 40 MEQ PO (12:49)
--- NOTE | 2022-10-23 13:29 | MHC.SL.SWA ---
Speech Pathologist Impression: Risk of Aspiration Due to: Medically Fragile Poor PO Intake Weak Cough Dysphasia Diet Status: Liquid Consistency and Strategies for Safe Swallow: Liquid Intake Recommendation: Thin Liquid Intake Strategies: Small Sips Solid Food Consistency: Dietary Recommendations: Pureed (NDD1) Additional Modifications to Solid Foods: Oral Medication Intake: Crushed with Puree Please contact the pharmacy regarding appropriate crushable or liquid drug formulations that are available whenever modified delivery is recommended. Compensatory Strategies and Precautions to be Taken for Safe Swallow: Sitting Upright (90 deg) Liquids from Straw Small Bites and Sips Alternate Liquids/Solids Rate of Ingestion Change Supervision While Eating and Drinking for Safe Swallow: Total Assistance (1:1) Foods to Avoid: Hard to chew foods, and mixed consistencies (i.e., soups, cereal w/ milk, fruit cups, etc.) Swallowing Recommended Treatments: Compens. Strategy Educat. Recommendation for Speech: Inpatient Speech Therapy Comment: Patient currently on clear liquid diet secondary to GI concerns. Patient was seen this am, with patient presenting as lethargic but requesting ice chips. Patient had oxymask on, which was briefly removed to provide patient with ice chips. Patient managed ice chips well, allowing them to dissolve and producing timely swallow on water residual. Patient was given six trials of ice chips without incident. When patient is ready to advance from Clear Liquids, recommend Puree (NDD1) with Thin liquids, pills crushed in puree. Frequency/Duration: Date Range for Service Req: Timeline to reassess: Roof Shingler Clinican/Clinical Fellow: No Supervisory Statement: I have reviewed and agree with the student/clinical fellow's documentation: N/A Speech Language Pathologist: Claudia Vásquez M.A., CCC-SOFTWARE COMPUTER SPECIALIST
[2022-10-23 15:49] LABS: Glucose, Whole Blood 154 mg/dL (60-115)
[2022-10-23 20:20] LABS: Glucose, Whole Blood 158 mg/dL (60-115)
[2022-10-23] MEDS: Insulin Lispro 100 UNIT/ML 3 ML VIAL SUBCUT (20:36)
[2022-10-23] MEDS: Torsemide 20 MG TABLET 40 MG PO (20:37)
[2022-10-23] MEDS: Apixaban 5 MG TABLET PO (20:37)
[2022-10-24] MEDS: LORazepam 2 MG/ML VIAL 0.25 MG IVPUSH ×4 (02:42→22:04)
[2022-10-24] MEDS: Morphine Sulfate 2 MG/ML CARTRIDGE 1 MG IVPUSH ×5 (02:43→22:03)
[2022-10-24] MEDS: vancomycin HCL 125 MG CAPSULE 250 MG PO ×4 (02:44→18:41)
[2022-10-24 03:15] VITALS: BP 164/72; PULSE 67; RESP 20; TEMP 36.6; O2SAT 97
[2022-10-24] MEDS: Doxycycline Hyclate 100 MG in 0.9 % Sodium Chloride 250 ML 166.67 MG IV ×2 (05:16→17:45)
[2022-10-24] MEDS: Piperacillin Sodium/Tazobactam 4.5 GM in 0.9 % Sodium Chloride 100 ML IV ×2 (05:17→17:46)
[2022-10-24] MEDS: Pantoprazole Sodium 40 MG/10 ML VIAL IVPUSH (05:20)
[2022-10-24 05:23] LABS: Hematocrit 30.1 % (37.0-47.0); Hemoglobin 9.9 g/dl (12.0-16.0); Mean Corpuscular HGB Conc 32.9 g/dl (31.0-35.0); Mean Corpuscular Hemoglobin 29.6 pg (27.0-33.0); Mean Corpuscular Volume 89.9 fL (80.0-98.0); Mean Platelet Volume 10.5 fL (9.4-12.3); Platelet Count 248 X10*3/uL (160-400); Red Blood Count 3.35 X10*6/uL (4.20-5.50); Red Cell Distribution Width 14.6 % (11.0-16.0); White Blood Count 7.8 X10*3/uL (4.8-10.8)
[2022-10-24] MEDS: Omeprazole 20 MG CAPSULE.DR PO (05:27)
[2022-10-24] MEDS: Levothyroxine Sodium 50 MCG TABLET PO (05:27)
[2022-10-24 05:34] LABS: Anion Gap 19 (12-20); Blood Urea Nitrogen 82 mg/dL (9-16); Calcium 8.3 mg/dL (8.4-10.2); Carbon Dioxide 29 mmol/L (22-29); Chloride 99 mmol/L (96-108); Creatinine Clr Calc Pharmacy 12.2; Estimated Glomerular Filt Rate 11; Glucose Random 104 mg/dL (60-115); Potassium 3.2 mmol/L (3.3-5.1); Sodium 144 mmol/L (135-145)
[2022-10-24 06:00] VITALS: BMI 36.4
[2022-10-24 07:14] VITALS: BP 146/77; PULSE 65; RESP 18; TEMP 36.6; O2SAT 97
[2022-10-24 07:46] LABS: Glucose, Whole Blood 95 mg/dL (60-115)
[2022-10-24] MEDS: guaiFENesin LA 600 MG TAB.ER.12H PO ×2 (08:47→21:18)
[2022-10-24] MEDS: amLODIPine Besylate 5 MG TABLET PO (08:47)
[2022-10-24] MEDS: Apixaban 5 MG TABLET PO ×2 (08:47→21:19)
[2022-10-24] MEDS: Amiodarone HCL 200 MG TABLET 400 MG PO ×2 (08:47→21:18)
[2022-10-24] MEDS: Isosorbide Mononitrate 60 MG TAB.ER.24H PO (08:47)
[2022-10-24] MEDS: Torsemide 20 MG TABLET 40 MG PO ×2 (08:47→21:22)
[2022-10-24] MEDS: Potassium Chloride Packet 20 MEQ PACKET 40 MEQ PO (08:48)
[2022-10-24] MEDS: 0.9 % Sodium Chloride Flush 3 ML SYRINGE IVFLUSH ×3 (08:48→21:45)
--- NOTE | 2022-10-24 09:12 | PM.PNNEP ---
Subjective Subjective Date of Service: 10/24/22 Interval history: Events noted Chart reviewed Physical Exam Vital Signs: Vital Signs: Last Vital Signs Temp 97.8 F 10/24/22 07:14 Pulse 65 10/24/22 07:14 Resp 18 10/24/22 07:14 BP 146/77 H 10/24/22 07:14 Pulse Ox 97 10/24/22 07:14 O2 Del Method Oxymask 10/24/22 07:14 O2 Flow Rate 4 10/24/22 07:14 FiO2 40 10/23/22 23:41 Oxygen Flow Rate 4 10/17/22 08:24 BMI result Body Mass Index 36.4 Const: General: cooperative and no acute distress Orientation/consciousness: patient oriented x3 Eyes: EOM: EOMs intact bilaterally Neck: Neck: Yes supple Resp: Auscultation: diminished lung sounds Cardio: Rate: regular rate GI: Palpation (GI): Soft to palpation Skin: General skin exam: no rashes or lesions noted Neuro: General: patient oriented x3 and moves all extremities Objective Data Labs 10/24/22 05:10 10/24/22 05:10 Labs: Laboratory Results - last 24 hr 10/23/22 10/23/22 10/23/22 11:15 15:44 19:43 WBC RBC Hgb Hct MCV MCH MCHC RDW Plt Count MPV Absolute Nucleated RBC Nucleated RBC % (auto) Sodium Potassium Chloride Carbon Dioxide Anion Gap BUN Creatinine Estim Creat Clear Calc Estimated GFR POC Glucose 93 154 H 158 H Random Glucose Calcium 10/24/22 10/24/22 10/24/22 05:10 05:10 07:42 WBC 7.8 RBC 3.35 L Hgb 9.9 L Hct 30.1 L MCV 89.9 MCH 29.6 MCHC 32.9 RDW 14.6 Plt Count 248 MPV 10.5 Absolute Nucleated RBC 0.000 Nucleated RBC % (auto) 0.0 Sodium 144 Potassium 3.2 L Chloride 99 Carbon Dioxide 29 Anion Gap 19 BUN 82 H Creatinine 3.89 H Estim Creat Clear Calc 12.2 Estimated GFR 11 POC Glucose 95 Random Glucose 104 Calcium 8.3 L Microbiology Microbiology Results: Microbiology 10/17/22 08:57 Blood - Venous Blood Culture - Final No growth after 5 days. 10/17/22 08:45 Blood - Venous Blood Culture - Final No growth after 5 days. Procedures Date of Service Date of Service: 10/24/22 Assessment & Plan Assessment and plan (1) Acute kidney injury superimposed on CKD: Status: Acute Assessment and Plan: Has CKD 3b at baseline; Currently KEILA due to CRS/PNA Hypervolemic- responded to IV diuresis Creatinine continues to increase. PO torsemide 40 mg bid No ACEI/ARB/NSAID's for now No reason to suspect AIN/GN/Obstructive uropathy [id number]. Replace as needed. Anemia Continue rest of current supportive care for now; Time Spent With Patient Time: Total time managing care of this patient today ____ minutes. Progress Note: Quality Stroke Does the patient have a stroke diagnosis?: No
--- NOTE | 2022-10-24 10:53 | MHC.CM.PN ---
EMR REVIEWED, PT REMAINS ON IV ABX, IV MORPHINE AND CLEAR LIQUIDS, PER HOSPITALIST ANTIC PT WILL REMAIN INPT THROUGH W/E, CATHERINE DEE FOLLOWING AND UPDATED VIA [facility], CM WILL CONT TO FOLLOW.
[2022-10-24 11:29] VITALS: BP 149/64; PULSE 65; RESP 20; TEMP 36.8; O2SAT 94
--- NOTE | 2022-10-24 11:40 | MHC.SL.SWA ---
Speech Pathologist Impression: Risk of aspiration, oropharyngeal dysphagia Risk of Aspiration Due to: Medically Fragile Poor PO Intake Weak Cough Dysphasia Diet Status: No change, pt remains on clear liquid diet at this time Liquid Consistency and Strategies for Safe Swallow: Liquid Intake Recommendation: Thin Liquid Intake Strategies: Small Sips Solid Food Consistency: Dietary Recommendations: Pureed (NDD1) (once cleared from clear liquids) Oral Medication Intake: Crushed with Puree Please contact the pharmacy regarding appropriate crushable or liquid drug formulations that are available whenever modified delivery is recommended. Compensatory Strategies and Precautions to be Taken for Safe Swallow: Sitting Upright (90 deg) Liquids from Straw Small Bites and Sips Alternate Liquids/Solids Rate of Ingestion Change Supervision While Eating and Drinking for Safe Swallow: Total Assistance (1:1) Foods to Avoid: Hard to chew foods, and mixed consistencies (i.e., soups, cereal w/ milk, fruit cups, etc.) Swallowing Recommended Treatments: Compens. Strategy Educat. Recommendation for Speech: Inpatient Speech Therapy Lift Manager Clinican/Clinical Fellow: No Supervisory Statement: I have reviewed and agree with the student/clinical fellow's documentation: N/A Speech Language Pathologist: Carmelina Price M.A., CCC-PLANNING DIVISION SUPERINTENDENT
[2022-10-24 11:41] LABS: Glucose, Whole Blood 172 mg/dL (60-115)
--- NOTE | 2022-10-24 12:39 | P.PNIM_ITS ---
Subjective Subjective Date of Service: 10/24/22 Interval History: seen and examined this morning follow up for respiratory failure, pneumonia appears much better this morning still reporting some epigastric abdominal discomfort but no lower abdominal pain. Reports decreased appetite. Having diarrhea. No nausea, vomiting some cough but no shortness of breath Review of Systems Review of Systems: Yes all other systems are reviewed and are negative Constitutional Constitutional: Denies chills and Denies fever(s) ENT Ears, Nose, Mouth, and Throat: Denies dizziness Cardiovascular Cardiovascular: Denies chest pain, Denies palpitations and Denies dyspnea Respiratory Respiratory: Reports cough and Denies dyspnea Gastrointestinal Gastrointestinal: Reports abdominal pain, Reports diarrhea and Denies vomiting Neurologic Neurologic: Denies dizziness Endocrine Endocrine: Denies palpitations Physical Exam Vital Signs: Vital Signs: Last Vital Signs Temp 98.3 F 10/24/22 11:29 Pulse 65 10/24/22 11:29 Resp 20 10/24/22 11:29 BP 149/64 H 10/24/22 11:29 Pulse Ox 94 10/24/22 11:29 O2 Del Method Oxymask 10/24/22 11:29 O2 Flow Rate 4 10/24/22 11:29 FiO2 40 10/23/22 23:41 Oxygen Flow Rate 4 10/17/22 08:24 BMI result Body Mass Index 36.4 Const: Other: somewhat anxious General: alert and awake Nutritional Appearance: overweight Orientation/consciousness: patient oriented x3 Resp: Other: decreased respiratory effort, diminished breath sounds Effort & Inspection: able to speak in complete sentences, no respiratory distress and no use of accessory muscles Cardio: Rate: regular rate Heart sounds: S1 normal heart sound present and S2 normal heart sound present GI: Other: some epigastric discomfort Inspection: No distended Palpation (GI): Soft to palpation, nontender and no guarding Skin: Other: some bruising left AC Neuro: Other: no focal deficits appreciated General: patient oriented x3, moves all extremities and CN's II-XI intact bilaterally Extrem: Other: no leg edema Objective Data Active Medications Acetaminophen (Acetaminophen 325 Mg Tablet) 650 mg PO Q6H PRN PRN Reason: Pain, Mild (Pain Scale 1-3) Last Admin: 10/23/22 09:22 Dose: 650 mg Documented By: JOSE Amiodarone HCl (Amiodarone Hcl 200 Mg Tablet) 400 mg PO BID [facility] Last Admin: 10/24/22 08:47 Dose: 400 mg Documented By: JOSE Amlodipine Besylate (Amlodipine Besylate 5 Mg Tablet) 5 mg PO DAILY [facility]; Protocol Last Admin: 10/24/22 08:47 Dose: 5 mg Documented By: JOSE Apixaban (Apixaban 5 Mg Tablet) 5 mg PO BID [facility] Last Admin: 10/24/22 08:47 Dose: 5 mg Documented By: JOSE Docusate Sodium (Docusate Sodium 100 Mg Capsule) 100 mg PO DAILY PRN PRN Reason: Constipation Glucose (Glucose Gel 15 Gm Gel..Gram.) 15 gm PO Q15M PRN; Protocol PRN Reason: per Hypoglycemia Standing Ord. Guaifenesin (Guaifenesin La 600 Mg Tab.Er.12h) 600 mg PO BID [facility] Last Admin: 10/24/22 08:47 Dose: 600 mg Documented By: JOSE Dextrose (D10) 250 mls @ 750 mls/hr IV Q15M PRN; Protocol PRN Reason: per Hypoglycemia Standing Ord. Piperacillin Sod/Tazobactam (Sod 4.5 gm/ Sodium Chloride) 100 mls @ 200 mls/hr IV Q12H [facility] Last Infusion: 10/24/22 06:11 Dose: 0 mls/hr Documented By: KELLI Doxycycline Hyclate 100 mg/ (Sodium Chloride) 250 mls @ 166.67 mls/hr IV Q12H [facility] Last Infusion: 10/24/22 07:30 Dose: 0 mls/hr Documented By: JOSE Insulin Human Lispro (Insulin Lispro 100 Unit/Ml 3 Ml Vial) 0 unit SUBCUT QIDACHS [facility]; Protocol Last Admin: 10/24/22 07:51 Dose: Not Given Documented By: JOSE Non-Admin Reason: No Insulin Coverage Isosorbide Mononitrate (Isosorbide Mononitrate 60 Mg Tab.Er.24h) 60 mg PO DAILY [facility]; Protocol Last Admin: 10/24/22 08:47 Dose: 60 mg Documented By: JOSE Levothyroxine Sodium (Levothyroxine Sodium 50 Mcg Tablet) 50 mcg PO DAILY@0630 [facility] Last Admin: 10/24/22 05:27 Dose: 50 mcg Documented By: KELLI Lorazepam (Lorazepam 2 Mg/Ml Vial) 0.25 mg IVPUSH Q6H PRN PRN Reason: anxiety Last Admin: 10/24/22 09:02 Dose: 0.25 mg Documented By: JOSE Morphine Sulfate (Morphine Sulfate 2 Mg/Ml Cartridge) 1 mg IVPUSH Q4H PRN; Protocol PRN Reason: Pain, Severe (Pain Scale 7-10) Last Admin: 10/24/22 09:03 Dose: 1 mg Documented By: JOSE Omeprazole (Omeprazole 20 Mg Capsule.) 20 mg PO BID@0630,1630 [facility] Last Admin: 10/24/22 05:27 Dose: 20 mg Documented By: KELLI Ondansetron HCl (Ondansetron Hcl 4 Mg/2 Ml Vial) 4 mg IVPUSH Q6H PRN PRN Reason: Nausea and Vomiting Pantoprazole Sodium (Pantoprazole Sodium 40 Mg/10 Ml Vial) 40 mg IVPUSH DAILY@0630 [facility] Last Admin: 10/24/22 05:20 Dose: 40 mg Documented By: KELLI Polyethylene Glycol (Polyethylene Glycol 3350 17 Gm Powd.Pack) 17 gm PO BID [facility] Last Admin: 10/22/22 08:42 Dose: Not Given Documented By: DARLENE Non-Admin Reason: loose stool Sodium Chloride (0.9 % Sodium Chloride Flush 3 Ml Syringe) [facility] Last Admin: 10/24/22 08:48 Dose: 3 ml Documented By: JOSE Torsemide (Torsemide 20 Mg Tablet) 40 mg PO BID [facility]; Protocol Last Admin: 10/24/22 08:47 Dose: 40 mg Documented By: JOSE Vancomycin HCl (Vancomycin Hcl 125 Mg Capsule) 250 mg PO Q6H [facility] Stop: 10/31/22 12:59 Last Admin: 10/24/22 08:46 Dose: 250 mg Documented By: JOSE Labs 10/24/22 05:10 10/24/22 05:10 Labs: Laboratory Results - last 24 hr 10/23/22 10/23/22 10/24/22 15:44 19:43 05:10 MCV MCH MCHC RDW Plt Count MPV Absolute Nucleated RBC Nucleated RBC % (auto) Anion Gap 19 Estim Creat Clear Calc 12.2 Estimated GFR 11 POC Glucose 154 H 158 H Random Glucose 104 Calcium 8.3 L 10/24/22 10/24/22 10/24/22 05:10 07:42 11:32 MCV 89.9 MCH 29.6 MCHC 32.9 RDW 14.6 Plt Count 248 MPV 10.5 Absolute Nucleated RBC 0.000 Nucleated RBC % (auto) 0.0 Anion Gap Estim Creat Clear Calc Estimated GFR POC Glucose 95 172 H Random Glucose Calcium Assessment and Plan (1) PAF (paroxysmal atrial fibrillation): Status: Acute (2) Epigastric abdominal pain: Status: Acute (3) Acute on chronic diastolic CHF (congestive heart failure): Status: Acute (4) Acute respiratory failure with hypoxia and hypercapnia: Status: Acute Plan This is a 77-year-old female with history of HFpEF, T2DM, HTN, CKD 3/4, chronic back/neck pain secondary to spinal stenosis who presents to the emergency department with complaints of shortness of breath found to have acute respiratory failure secondary to CHF Cdiff gene pos, A&B negative will treat in light off diarrhea Vancomycin oral 10 days Acute respiratory failure with hypoxia / hypercarbia secondary bilateral pna, CHF flu/RSV/covid negative. Intermittent BiPAP, oxymask normal ABG down to 4L oxymask acute on chronic HFpEF echo 10/20/22 normal EF, severe pulm HTN Neg >6L to date. BNP trending down stop Bumex drip, transition back to home torsemide 40 bid increased isosorbide to 60mg daily cardio following Colitis, extensive with abd pain. Ischemic vs infectious in light of cdiff GI following normal abd doppler elevated procalcitonin continue Zosyn seen by general surgery, no surgical intervention required at this time still having epigastric pain, lower abdominal pain improved - discussed with GI, IV PPI, trial regular diet. will recheck LFTs. Bilateral pneumonia continue Zosyn and Doxycycline started 10/20- likely 5-7days blood cultures negative KEILA on CKD 3b Cardiorenal. creatinine still elevated no alejandra/arb or nsaids as per nephro nephrology following follow BMP paroxysmal atrial fibrillation now in sinus started on amiodarone 400 mg bid for 10 days, then change to 200 mg daily per cardiology note AC with Eliquis hypokalemia k low replace and follow levels check magnesium labile mood ativan prn for anxiety HTN home dose of metoprolol and norvasc d/c in ICU was previously on norvasc 10, cards rec to resume 2.5, increase to 5mg continue imdur T2DM SSI, ADA diet seen by speech rec NDD1 for now hypothyroid continue synthroid chronic pain gabapentin and home dose of oxycodone d/c during ICU stay receiving IV morphine for abdominal pain Gerd continue omeprazole Morbid obesity bmi 36.9 weight loss encouraged dvt ppx - Eliquis code status - Full code attending Dr. Alford patient requires ongoing stay in the hospital for management of respiratory failure, CHF requiring IV diuresis, specialist consultation, close monitoring of respiratory status Time Spent With Patient Time: Total time managing care of this patient today ____ minutes. Quality Stroke Does the patient have a stroke diagnosis?: No VTE Prior VTE?: No VTE Risk Level:: Medical - moderate - high VTE Device Contraindication: N/A - Device Ordered VTE Drug Contraindication: N/A - Med Ordered
[2022-10-24] MEDS: Insulin Lispro 100 UNIT/ML 3 ML VIAL SUBCUT ×2 (12:55→21:18)
[2022-10-24 14:07] LABS: Alanine Aminotransferase 7 U/L (0-31); Albumin Level 3.5 g/dL (3.5-5.0); Alkaline Phosphatase 67 U/L (39-117); Aspartate Amino Transferase 10 U/L (5-31); Bilirubin Direct 0.2 mg/dL (0.0-0.5); Bilirubin Total 0.4 mg/dL (0.0-1.0); Lipase 78 U/L (8-78)
[2022-10-24] MEDS: Acetaminophen 325 MG TABLET 650 MG PO (14:35)
[2022-10-24 15:43] VITALS: BP 147/66; PULSE 89; RESP 18; TEMP 37.1; O2SAT 97
[2022-10-24 15:56] LABS: Glucose, Whole Blood 147 mg/dL (60-115)
[2022-10-24 19:50] VITALS: BP 154/70; PULSE 63; RESP 19; TEMP 37.1; O2SAT 97
[2022-10-24 20:16] LABS: Glucose, Whole Blood 176 mg/dL (60-115)
[2022-10-24] MEDS: Potassium Chloride Packet 20 MEQ PACKET PO (21:18)
[2022-10-25] VITALS (8 sets, daily range): BP systolic 135–168; BP diastolic 60–71; PULSE 58–65; RESP 15–20; TEMP 36.1–37.1; O2SAT 93–96; BMI 36.2
[2022-10-25] MEDS: vancomycin HCL 125 MG CAPSULE 250 MG PO ×4 (02:28→20:41)
[2022-10-25] MEDS: Morphine Sulfate 2 MG/ML CARTRIDGE 1 MG IVPUSH ×4 (04:08→21:13)
[2022-10-25] MEDS: LORazepam 2 MG/ML VIAL 0.25 MG IVPUSH ×3 (04:08→20:28)
[2022-10-25] MEDS: Levothyroxine Sodium 50 MCG TABLET PO (05:36)
[2022-10-25] MEDS: Piperacillin Sodium/Tazobactam 4.5 GM in 0.9 % Sodium Chloride 100 ML IV ×2 (05:37→18:06)
[2022-10-25] MEDS: Pantoprazole Sodium 40 MG/10 ML VIAL IVPUSH (05:37)
[2022-10-25] MEDS: Doxycycline Hyclate 100 MG in 0.9 % Sodium Chloride 250 ML 166.67 MG IV ×2 (05:47→18:18)
[2022-10-25 07:50] LABS: Anion Gap 20 (12-20); Blood Urea Nitrogen 91 mg/dL (9-16); Calcium 8.2 mg/dL (8.4-10.2); Carbon Dioxide 27 mmol/L (22-29); Chloride 99 mmol/L (96-108); Creatinine Clr Calc Pharmacy 10.2; Estimated Glomerular Filt Rate 9; Glucose Random 116 mg/dL (60-115); Sodium 143 mmol/L (135-145)
[2022-10-25 08:18] LABS: Glucose, Whole Blood 117 mg/dL (60-115)
[2022-10-25] MEDS: amLODIPine Besylate 5 MG TABLET PO (08:48)
[2022-10-25] MEDS: guaiFENesin LA 600 MG TAB.ER.12H PO ×2 (08:48→20:41)
[2022-10-25] MEDS: Apixaban 5 MG TABLET PO ×2 (08:49→20:41)
[2022-10-25] MEDS: Isosorbide Mononitrate 60 MG TAB.ER.24H PO (08:49)
[2022-10-25] MEDS: 0.9 % Sodium Chloride Flush 3 ML SYRINGE IVFLUSH ×3 (08:50→20:30)
[2022-10-25] MEDS: Amiodarone HCL 200 MG TABLET 400 MG PO ×2 (08:52→20:41)
[2022-10-25] MEDS: Torsemide 20 MG TABLET 40 MG PO ×2 (11:27→20:41)
[2022-10-25 12:02] LABS: Glucose, Whole Blood 135 mg/dL (60-115)
--- NOTE | 2022-10-25 13:49 | PM.PNNEP ---
Subjective Subjective Date of Service: 10/25/22 Interval history: Events noted Chart reviewed Physical Exam Vital Signs: Vital Signs: Last Vital Signs Temp 98.4 F 10/25/22 11:11 Pulse 62 10/25/22 11:11 Resp 20 10/25/22 11:11 BP 135/70 10/25/22 11:11 Pulse Ox 96 10/25/22 11:11 O2 Del Method Oxymask 10/25/22 11:11 O2 Flow Rate 4 10/25/22 11:11 FiO2 40 10/23/22 23:41 Oxygen Flow Rate 4 10/17/22 08:24 BMI result Body Mass Index 36.2 Const: General: cooperative and no acute distress Orientation/consciousness: patient oriented x3 Eyes: EOM: EOMs intact bilaterally Neck: Neck: Yes supple Resp: Auscultation: diminished lung sounds Cardio: Rate: regular rate GI: Palpation (GI): Soft to palpation Skin: General skin exam: no rashes or lesions noted Neuro: General: patient oriented x3 and moves all extremities Objective Data Labs 10/24/22 05:10 10/25/22 06:31 Labs: Laboratory Results - last 24 hr 10/24/22 10/24/22 10/24/22 05:10 15:40 19:49 Sodium Potassium Chloride Carbon Dioxide Anion Gap BUN Creatinine Estim Creat Clear Calc Estimated GFR POC Glucose 147 H 176 H Random Glucose Calcium Total Bilirubin 0.4 Direct Bilirubin 0.2 AST 10 ALT 7 Alkaline Phosphatase 67 Total Protein 6.0 L Albumin 3.5 Lipase 78 10/25/22 10/25/22 10/25/22 06:31 07:51 11:14 Sodium 143 Potassium 3.0 L Chloride 99 Carbon Dioxide 27 Anion Gap 20 BUN 91 H Creatinine 4.57 H* Estim Creat Clear Calc 10.2 Estimated GFR 9 POC Glucose 117 H 135 H Random Glucose 116 H Calcium 8.2 L Total Bilirubin Direct Bilirubin AST ALT Alkaline Phosphatase Total Protein Albumin Lipase Microbiology Microbiology Results: Microbiology 10/17/22 08:57 Blood - Venous Blood Culture - Final No growth after 5 days. 10/17/22 08:45 Blood - Venous Blood Culture - Final No growth after 5 days. Procedures Date of Service Date of Service: 10/25/22 Assessment & Plan Assessment and plan (1) Acute kidney injury superimposed on CKD: Status: Acute Assessment and Plan: Has CKD 3b at baseline; Currently KEILA due to CRS/PNA Hypervolemic- responded to IV diuresis Creatinine continues to increase. PO torsemide 40 mg bid No ACEI/ARB/NSAID's for now No reason to suspect AIN/GN/Obstructive uropathy Unqzzxdyomi-uxomixmj-[id number]. Replace as needed. Anemia Continue rest of current supportive care for now; Time Spent With Patient Time: Total time managing care of this patient today ____ minutes. Progress Note: Quality Stroke Does the patient have a stroke diagnosis?: No
--- NOTE | 2022-10-25 13:57 | P.PNIM_ITS ---
Subjective Subjective Date of Service: 10/25/22 Interval History: seen and examined this morning follow up for respiratory failure, pneumonia appears much better this morning still reporting some epigastric abdominal discomfort but no lower abdominal pain. Reports decreased appetite. Having diarrhea. No nausea, vomiting some cough but no shortness of breath Review of Systems Review of Systems: Yes all other systems are reviewed and are negative Constitutional Constitutional: Denies chills and Denies fever(s) ENT Ears, Nose, Mouth, and Throat: Denies dizziness Cardiovascular Cardiovascular: Denies chest pain, Denies palpitations and Denies dyspnea Respiratory Respiratory: Reports cough and Denies dyspnea Gastrointestinal Gastrointestinal: Reports abdominal pain, Reports diarrhea and Denies vomiting Neurologic Neurologic: Denies dizziness Endocrine Endocrine: Denies palpitations Physical Exam Vital Signs: Vital Signs: Last Vital Signs Temp 98.4 F 10/25/22 11:11 Pulse 62 10/25/22 11:11 Resp 20 10/25/22 11:11 BP 135/70 10/25/22 11:11 Pulse Ox 96 10/25/22 11:11 O2 Del Method Oxymask 10/25/22 11:11 O2 Flow Rate 4 10/25/22 11:11 FiO2 40 10/23/22 23:41 Oxygen Flow Rate 4 10/17/22 08:24 BMI result Body Mass Index 36.2 Appearing in no acute distress LS rhonchi heart regular rate rhythm, clear S1, S2 positive bowel sounds, abdomen is soft, nontender neuro patient is alert x3, no focal deficits Objective Data Active Medications Acetaminophen (Acetaminophen 325 Mg Tablet) 650 mg PO Q6H PRN PRN Reason: Pain, Mild (Pain Scale 1-3) Last Admin: 10/24/22 14:35 Dose: 650 mg Documented By: JOSE Amiodarone HCl (Amiodarone Hcl 200 Mg Tablet) 400 mg PO BID [facility] Last Admin: 10/25/22 08:52 Dose: 400 mg Documented By: SERVANDO Amlodipine Besylate (Amlodipine Besylate 5 Mg Tablet) 5 mg PO DAILY [facility]; Jose rotocol Last Admin: 10/25/22 08:48 Dose: 5 mg Documented By: SERVANDO Apixaban (Apixaban 5 Mg Tablet) 5 mg PO BID [facility] Last Admin: 10/25/22 08:49 Dose: 5 mg Documented By: SERVANDO Docusate Sodium (Docusate Sodium 100 Mg Capsule) 100 mg PO DAILY PRN PRN Reason: Constipation Glucose (Glucose Gel 15 Gm Gel..Gram.) 15 gm PO Q15M PRN; Protocol PRN Reason: per Hypoglycemia Standing Ord. Guaifenesin (Guaifenesin La 600 Mg Tab.Er.12h) 600 mg PO BID [facility] Last Admin: 10/25/22 08:48 Dose: 600 mg Documented By: SERVANDO Dextrose (D10) 250 mls @ 750 mls/hr IV Q15M PRN; Protocol PRN Reason: per Hypoglycemia Standing Ord. Piperacillin Sod/Tazobactam (Sod 4.5 gm/ Sodium Chloride) 100 mls @ 200 mls/hr IV Q12H [facility] Last Infusion: 10/25/22 06:25 Dose: 0 mls/hr Documented By: DELLA Doxycycline Hyclate 100 mg/ (Sodium Chloride) 250 mls @ 166.67 mls/hr IV Q12H [facility] Last Infusion: 10/25/22 09:04 Dose: 0 mls/hr Documented By: SERVANDO Insulin Human Lispro (Insulin Lispro 100 Unit/Ml 3 Ml Vial) 0 unit SUBCUT QIDACHS [facility]; Protocol Last Admin: 10/25/22 13:32 Dose: Not Given Documented By: SERVANDO Non-Admin Reason: No Insulin Coverage Isosorbide Mononitrate (Isosorbide Mononitrate 60 Mg Tab.Er.24h) 60 mg PO DAILY [facility]; Protocol Last Admin: 10/25/22 08:49 Dose: 60 mg Documented By: SERVANDO Levothyroxine Sodium (Levothyroxine Sodium 50 Mcg Tablet) 50 mcg PO DAILY@0630 [facility] Last Admin: 10/25/22 05:36 Dose: 50 mcg Documented By: DELLA Lorazepam (Lorazepam 2 Mg/Ml Vial) 0.25 mg IVPUSH Q6H PRN PRN Reason: anxiety Last Admin: 10/25/22 11:33 Dose: 0.25 mg Documented By: SERVANDO Morphine Sulfate (Morphine Sulfate 2 Mg/Ml Cartridge) 1 mg IVPUSH Q4H PRN; Protocol PRN Reason: Pain, Severe (Pain Scale 7-10) Last Admin: 10/25/22 09:02 Dose: 1 mg Documented By: SERVANDO Ondansetron HCl (Ondansetron Hcl 4 Mg/2 Ml Vial) 4 mg IVPUSH Q6H PRN PRN Reason: Nausea and Vomiting Pantoprazole Sodium (Pantoprazole Sodium 40 Mg/10 Ml Vial) 40 mg IVPUSH DAILY@0630 [facility] Last Admin: 10/25/22 05:37 Dose: 40 mg Documented By: DELLA Polyethylene Glycol (Polyethylene Glycol 3350 17 Gm Powd.Pack) 17 gm PO BID [facility] Last Admin: 10/22/22 08:42 Dose: Not Given Documented By: DARLENE Non-Admin Reason: loose stool Sodium Chloride (0.9 % Sodium Chloride Flush 3 Ml Syringe) 3 ml IVFLUSH QSHIFT [facility] Last Admin: 10/25/22 08:50 Dose: 3 ml Documented By: SERVANDO Torsemide (Torsemide 20 Mg Tablet) 40 mg PO BID [facility]; Protocol Last Admin: 10/25/22 11:27 Dose: 40 mg Documented By: SERVANDO Vancomycin HCl (Vancomycin Hcl 125 Mg Capsule) 250 mg PO Q6H [facility] Stop: 10/31/22 12:59 Last Admin: 10/25/22 13:38 Dose: 250 mg Documented By: SERVANDO Labs 10/24/22 05:10 10/25/22 06:31 Labs: Laboratory Results - last 24 hr 10/24/22 10/24/22 10/24/22 05:10 15:40 19:49 Anion Gap Estim Creat Clear Calc Estimated GFR POC Glucose 147 H 176 H Random Glucose Calcium Total Bilirubin 0.4 Direct Bilirubin 0.2 AST 10 ALT 7 Alkaline Phosphatase 67 Total Protein 6.0 L Albumin 3.5 Lipase 78 10/25/22 10/25/22 10/25/22 06:31 07:51 11:14 Anion Gap 20 Estim Creat Clear Calc 10.2 Estimated GFR 9 POC Glucose 117 H 135 H Random Glucose 116 H Calcium 8.2 L Total Bilirubin Direct Bilirubin AST ALT Alkaline Phosphatase Total Protein Albumin Lipase Assessment and Plan (1) PAF (paroxysmal atrial fibrillation): Status: Acute (2) Epigastric abdominal pain: Status: Acute (3) Acute on chronic diastolic CHF (congestive heart failure): Status: Acute (4) Acute respiratory failure with hypoxia and hypercapnia: Status: Acute Plan This is a 77-year-old female with history of HFpEF, T2DM, HTN, CKD 3/4, chronic back/neck pain secondary to spinal stenosis who presents to the emergency department with complaints of shortness of breath found to have acute respiratory failure secondary to CHF Cdiff gene pos, A&B negative will treat in light off diarrhea Vancomycin oral 10 days Acute respiratory failure with hypoxia / hypercarbia secondary bilateral pna, CHF flu/RSV/covid negative. Intermittent BiPAP, oxymask normal ABG down to 4L oxymask acute on chronic HFpEF echo 10/20/22 normal EF, severe pulm HTN Neg >6L to date. BNP trending down stop Bumex drip, transition back to home torsemide 40 bid increased isosorbide to 60mg daily cardio following Colitis, extensive with abd pain. Ischemic vs infectious in light of cdiff GI following normal abd doppler elevated procalcitonin continue Zosyn seen by general surgery, no surgical intervention required at this time still having epigastric pain, lower abdominal pain improved - discussed with GI, IV PPI, trial regular diet. will recheck LFTs. Bilateral pneumonia continue Zosyn and Doxycycline started 10/20- likely 5-7days blood cultures negative KEILA on CKD 3b 4.57 today Cardiorenal. creatinine still elevated no alejandra/arb or nsaids as per nephro nephrology following follow BMP paroxysmal atrial fibrillation now in sinus started on amiodarone 400 mg bid for 10 days, then change to 200 mg daily per cardiology note AC with Eliquis hypokalemia k low replace and follow levels check magnesium labile mood ativan prn for anxiety HTN home dose of metoprolol and norvasc d/c in ICU was previously on norvasc 10, cards rec to resume 2.5, increase to 5mg continue imdur T2DM SSI, ADA diet seen by speech rec NDD1 for now hypothyroid continue synthroid chronic pain gabapentin and home dose of oxycodone d/c during ICU stay receiving IV morphine for abdominal pain Gerd continue omeprazole Morbid obesity bmi 36.9 weight loss encouraged dvt ppx - Eliquis code status - Full code attending Dr. Hathaway patient requires ongoing stay in the hospital for management of respiratory failure, CHF requiring IV diuresis, specialist consultation, close monitoring of respiratory status Time Spent With Patient Time: Total time managing care of this patient today ____ minutes. Quality Stroke Does the patient have a stroke diagnosis?: No VTE Prior VTE?: No VTE Risk Level:: Medical - moderate - high VTE Device Contraindication: N/A - Device Ordered VTE Drug Contraindication: N/A - Med Ordered
[2022-10-25 16:05] LABS: Glucose, Whole Blood 173 mg/dL (60-115)
[2022-10-25] MEDS: Insulin Lispro 100 UNIT/ML 3 ML VIAL SUBCUT (16:55)
[2022-10-25] MEDS: Carbamide Peroxide 6.5% Otic 15 ML DRPBTL 5 DROP EAR-RIGHT (17:10)
[2022-10-25 19:58] LABS: Glucose, Whole Blood 125 mg/dL (60-115)
[2022-10-26] VITALS (8 sets, daily range): BP systolic 136–160; BP diastolic 62–88; PULSE 58–81; RESP 18–20; TEMP 36.1–36.8; O2SAT 94–98; BMI 37.4
[2022-10-26] MEDS: vancomycin HCL 125 MG CAPSULE 250 MG PO ×4 (00:28→18:05)
[2022-10-26] MEDS: Morphine Sulfate 2 MG/ML CARTRIDGE 1 MG IVPUSH ×5 (02:10→22:00)
[2022-10-26] MEDS: LORazepam 2 MG/ML VIAL 0.25 MG IVPUSH ×3 (03:36→17:36)
[2022-10-26] MEDS: Piperacillin Sodium/Tazobactam 4.5 GM in 0.9 % Sodium Chloride 100 ML IV (05:47)
[2022-10-26] MEDS: Levothyroxine Sodium 50 MCG TABLET PO (05:55)
[2022-10-26] MEDS: Doxycycline Hyclate 100 MG in 0.9 % Sodium Chloride 250 ML 166.67 MG IV (06:20)
[2022-10-26] MEDS: guaiFENesin LA 600 MG TAB.ER.12H PO (07:59)
[2022-10-26] MEDS: amLODIPine Besylate 5 MG TABLET PO (07:59)
[2022-10-26] MEDS: Isosorbide Mononitrate 60 MG TAB.ER.24H PO (07:59)
[2022-10-26] MEDS: Amiodarone HCL 200 MG TABLET 400 MG PO ×2 (07:59→20:52)
[2022-10-26] MEDS: Torsemide 20 MG TABLET 40 MG PO (07:59)
[2022-10-26] MEDS: Apixaban 5 MG TABLET PO (07:59)
[2022-10-26 08:18] LABS: Hematocrit 28.7 % (37.0-47.0); Hemoglobin 9.5 g/dl (12.0-16.0); Mean Corpuscular HGB Conc 33.1 g/dl (31.0-35.0); Mean Corpuscular Hemoglobin 29.9 pg (27.0-33.0); Mean Corpuscular Volume 90.3 fL (80.0-98.0); Mean Platelet Volume 11.1 fL (9.4-12.3); Platelet Count 233 X10*3/uL (160-400); Red Blood Count 3.18 X10*6/uL (4.20-5.50); Red Cell Distribution Width 14.2 % (11.0-16.0); White Blood Count 8.9 X10*3/uL (4.8-10.8)
[2022-10-26 08:46] LABS: Anion Gap 20 (12-20); Blood Urea Nitrogen 97 mg/dL (9-16); Calcium 8.2 mg/dL (8.4-10.2); Carbon Dioxide 28 mmol/L (22-29); Chloride 101 mmol/L (96-108); Creatinine Clr Calc Pharmacy 9.5; Estimated Glomerular Filt Rate 9; Glucose Random 100 mg/dL (60-115); Potassium 3.2 mmol/L (3.3-5.1); Sodium 146 mmol/L (135-145)
[2022-10-26 09:00] LABS: Glucose, Whole Blood 110 mg/dL (60-115)
--- NOTE | 2022-10-26 09:05 | P.PNIM_ITS ---
Subjective Subjective Date of Service: 10/26/22 Interval History: seen and examined this morning follow up for respiratory failure, pneumonia appears much better this morning Review of Systems Review of Systems: Yes all other systems are reviewed and are negative Constitutional Constitutional: Denies chills and Denies fever(s) ENT Ears, Nose, Mouth, and Throat: Denies dizziness Cardiovascular Cardiovascular: Denies chest pain, Denies palpitations and Denies dyspnea Respiratory Respiratory: Reports cough and Denies dyspnea Gastrointestinal Gastrointestinal: Reports abdominal pain, Reports diarrhea and Denies vomiting Neurologic Neurologic: Denies dizziness Endocrine Endocrine: Denies palpitations Physical Exam Vital Signs: Vital Signs: Last Vital Signs Temp 97.0 F 10/26/22 07:14 Pulse 60 10/26/22 07:14 Resp 20 10/26/22 07:14 BP 149/71 H 10/26/22 07:14 Pulse Ox 94 10/26/22 07:14 O2 Del Method Oxymask 10/26/22 07:14 O2 Flow Rate 4 10/26/22 07:14 FiO2 40 10/23/22 23:41 Oxygen Flow Rate 4 10/17/22 08:24 BMI result Body Mass Index 37.4 Appearing in no acute distress lung sounds are clear to auscultation heart regular rate rhythm, clear S1, S2 positive bowel sounds, abdomen is soft, nontender neuro patient is alert x3, no focal deficits Objective Data Active Medications Acetaminophen (Acetaminophen 325 Mg Tablet) 650 mg PO Q6H PRN PRN Reason: Pain, Mild (Pain Scale 1-3) Last Admin: 10/24/22 14:35 Dose: 650 mg Documented By: JOSE Amiodarone HCl (Amiodarone Hcl 200 Mg Tablet) 400 mg PO BID [facility] Last Admin: 10/26/22 07:59 Dose: 400 mg Documented By: MONICA Amlodipine Besylate (Amlodipine Besylate 5 Mg Tablet) 5 mg PO DAILY [facility]; Protocol Last Admin: 10/26/22 07:59 Dose: 5 mg Documented By: MONICA Apixaban (Apixaban 5 Mg Tablet) 5 mg PO BID [facility] Last Admin: 10/26/22 07:59 Dose: 5 mg Documented By: MONICA Docusate Sodium (Docusate Sodium 100 Mg Capsule) 100 mg PO DAILY PRN PRN Reason: Constipation Glucose (Glucose Gel 15 Gm Gel..Gram.) 15 gm PO Q15M PRN; Protocol PRN Reason: per Hypoglycemia Standing Ord. Dextrose (D10) 250 mls @ 750 mls/hr IV Q15M PRN; Protocol PRN Reason: per Hypoglycemia Standing Ord. Doxycycline Hyclate 100 mg/ (Sodium Chloride) 250 mls @ 166.67 mls/hr IV Q12H [facility] Last Infusion: 10/26/22 08:07 Dose: 0 mls/hr Documented By: MONICA Sodium Chloride (Ns) 500 mls @ 50 mls/hr IVCONT .Q10H [facility] Insulin Human Lispro (Insulin Lispro 100 Unit/Ml 3 Ml Vial) 0 unit SUBCUT QIDACHS [facility]; Protocol Last Admin: 10/26/22 08:11 Dose: Not Given Documented By: MONICA Non-Admin Reason: No Insulin Coverage Isosorbide Mononitrate (Isosorbide Mononitrate 60 Mg Tab.Er.24h) 60 mg PO DAILY [facility]; Protocol Last Admin: 10/26/22 07:59 Dose: 60 mg Documented By: MONICA Levothyroxine Sodium (Levothyroxine Sodium 50 Mcg Tablet) 50 mcg PO DAILY@0630 [facility] Last Admin: 10/26/22 05:55 Dose: 50 mcg Documented By: LENNY Lorazepam (Lorazepam 2 Mg/Ml Vial) 0.25 mg IVPUSH Q6H PRN PRN Reason: anxiety Last Admin: 10/26/22 03:36 Dose: 0.25 mg Documented By: LENNY Morphine Sulfate (Morphine Sulfate 2 Mg/Ml Cartridge) 1 mg IVPUSH Q4H PRN; Protocol PRN Reason: Pain, Severe (Pain Scale 7-10) Last Admin: 10/26/22 08:04 Dose: 1 mg Documented By: MONICA Ondansetron HCl (Ondansetron Hcl 4 Mg/2 Ml Vial) 4 mg IVPUSH Q6H PRN PRN Reason: Nausea and Vomiting Polyethylene Glycol (Polyethylene Glycol 3350 17 Gm Powd.Pack) 17 gm PO BID [facility] Last Admin: 10/22/22 08:42 Dose: Not Given Documented By: DARLENE Non-Admin Reason: loose stool Sodium Chloride (0.9 % Sodium Chloride Flush 3 Ml Syringe) 3 ml IVFLUSH QSHIFT [facility] Last Admin: 10/25/22 20:30 Dose: 3 ml Documented By: WILLIAN Vancomycin HCl (Vancomycin Hcl 125 Mg Capsule) 250 mg PO Q6H [facility] Stop: 10/31/22 12:59 Last Admin: 10/26/22 07:59 Dose: 250 mg Documented By: MONICA Labs 10/26/22 08:02 10/26/22 08:02 Labs: Laboratory Results - last 24 hr 10/25/22 10/25/22 10/25/22 11:14 15:57 19:39 MCV MCH MCHC RDW Plt Count MPV Absolute Nucleated RBC Nucleated RBC % (auto) Anion Gap Estim Creat Clear Calc Estimated GFR POC Glucose 135 H 173 H 125 H Random Glucose Calcium 10/26/22 10/26/22 10/26/22 07:18 08:02 08:02 MCV 90.3 MCH 29.9 MCHC 33.1 RDW 14.2 Plt Count 233 MPV 11.1 Absolute Nucleated RBC 0.000 Nucleated RBC % (auto) 0.0 Anion Gap 20 Estim Creat Clear Calc 9.5 Estimated GFR 9 POC Glucose 110 Random Glucose 100 Calcium 8.2 L Assessment and Plan (1) PAF (paroxysmal atrial fibrillation): Status: Acute (2) Epigastric abdominal pain: Status: Acute (3) Acute on chronic diastolic CHF (congestive heart failure): Status: Acute (4) Acute respiratory failure with hypoxia and hypercapnia: Status: Acute Plan This is a 77-year-old female with history of HFpEF, T2DM, HTN, CKD 3/4, chronic back/neck pain secondary to spinal stenosis who presents to the emergency department with complaints of shortness of breath found to have acute respiratory failure secondary to CHF KEILA on CKD 3b. trending up , likely from overdiuresis Cardiorenal. creatinine still elevated no alejandra/arb or nsaids as per nephro nephrology following Hold diuretics, give back small amount of fluid Cdiff gene pos, A&B negative will treat in light off diarrhea Vancomycin oral 10 days Acute respiratory failure with hypoxia / hypercarbia secondary bilateral pna, CHF . Resolved flu/RSV/covid negative. s/p Intermittent BiPAP normal ABG down to 4L oxymask acute on chronic HFpEF. Resolved echo 10/20/22 normal EF, severe pulm HTN Neg >6L to date. s/p bumex drip increased isosorbide to 60mg daily cardio following Colitis, extensive with abd pain. Ischemic vs infectious in light of cdiff GI following normal abd doppler elevated procalcitonin continue Zosyn seen by general surgery, no surgical intervention required at this time still having epigastric pain, lower abdominal pain improved - discussed with GI, IV PPI, trial regular diet. will recheck LFTs. Bilateral pneumonia s/p Zosyn and Doxycycline blood cultures negative paroxysmal atrial fibrillation now in sinus started on amiodarone 400 mg bid for 10 days, then change to 200 mg daily per cardiology note AC with Eliquis hypokalemia k low replace and follow levels check magnesium labile mood ativan prn for anxiety HTN home dose of metoprolol and norvasc d/c in ICU was previously on norvasc 5mg continue imdur T2DM SSI, ADA diet seen by speech rec NDD1 for now hypothyroid continue synthroid chronic pain gabapentin and home dose of oxycodone d/c during ICU stay receiving IV morphine for abdominal pain Gerd continue omeprazole Morbid obesity bmi 37.4 weight loss encouraged dvt ppx - Eliquis code status - Full code attending Dr. Mag AYALA. OOB Bed to chair, PT evaluation pending patient requires ongoing stay in the hospital for management of respiratory failure, CHF requiring IV diuresis, specialist consultation, close monitoring of respiratory status Time Spent With Patient Time: Total time managing care of this patient today ____ minutes. Quality Stroke Does the patient have a stroke diagnosis?: No VTE Prior VTE?: No VTE Risk Level:: Medical - moderate - high VTE Device Contraindication: N/A - Device Ordered VTE Drug Contraindication: N/A - Med Ordered
[2022-10-26] MEDS: 0.9 % Sodium Chloride 500 ML 50 ML IVCONT ×2 (10:00→21:59)
[2022-10-26 12:01] LABS: Glucose, Whole Blood 145 mg/dL (60-115)
[2022-10-26] MEDS: Potassium Chloride ER 20 MEQ TAB.ER.PRT 40 MEQ PO (12:17)
--- NOTE | 2022-10-26 14:05 | PM.GIPN ---
Subjective Subjective Date of Service: 10/26/22 Interval History: at bedside. History from RN, patient, and EMR. Patient had a small amount of rectal bleeding with brown stool on a pad earlier today. She still c/o anorexia and upper abdominal discomfort.There has not been any vomiting. Critical Care Time (minutes): 0 Physical Exam Vital Signs: Vital Signs: Last Vital Signs Temp 97.0 F 10/26/22 11:24 Pulse 58 10/26/22 11:24 Resp 20 10/26/22 11:24 BP 136/64 10/26/22 11:24 Pulse Ox 97 10/26/22 11:24 O2 Del Method Oxymask 10/26/22 11:24 O2 Flow Rate 4 10/26/22 11:24 FiO2 40 10/23/22 23:41 Oxygen Flow Rate 4 10/17/22 08:24 BMI result Body Mass Index 37.4 Const: General: cooperative, comfortable, no acute distress and awake Eyes: Other: Anicteric sclerae GI: Other: Soft, +BS, Nondistended, Epigastric tenderness, no mass/rebound/guarding Objective Data Labs 10/26/22 08:02 10/26/22 08:02 Labs: Laboratory Results - last 24 hr 10/25/22 10/25/22 10/26/22 15:57 19:39 07:18 WBC RBC Hgb Hct MCV MCH MCHC RDW Plt Count MPV Absolute Nucleated RBC Nucleated RBC % (auto) Sodium Potassium Chloride Carbon Dioxide Anion Gap BUN Creatinine Estim Creat Clear Calc Estimated GFR POC Glucose 173 H 125 H 110 Random Glucose Calcium 10/26/22 10/26/22 10/26/22 08:02 08:02 11:27 WBC 8.9 RBC 3.18 L Hgb 9.5 L Hct 28.7 L MCV 90.3 MCH 29.9 MCHC 33.1 RDW 14.2 Plt Count 233 MPV 11.1 Absolute Nucleated RBC 0.000 Nucleated RBC % (auto) 0.0 Sodium 146 H Potassium 3.2 L Chloride 101 Carbon Dioxide 28 Anion Gap 20 BUN 97 H Creatinine 4.96 H* Estim Creat Clear Calc 9.5 Estimated GFR 9 POC Glucose 145 H Random Glucose 100 Calcium 8.2 L Microbiology Microbiology Results: Microbiology 10/17/22 08:57 Blood - Venous Blood Culture - Final No growth after 5 days. 10/17/22 08:45 Blood - Venous Blood Culture - Final No growth after 5 days. Procedures Date of Service Date of Service: 10/26/22 Progress Note: A&P Assessment and plan (1) Epigastric abdominal pain: Status: Acute Assessment and Plan: Imp: Her discomfort may be from gastritis--her EGD in 2020 did not show any significant pathology. Her labs and U/S here were negative for any biliary or pancreatic process. Rec: Resume PPI(I noticed that she has been off of that) and supportive care. Diet as tolerated. I don't think an upper endoscopy would be helpful at this time. Will add a trial of Carafate suspension as well. (2) Rectal bleeding: Status: Acute Assessment and Plan: Imp: I suspect her rectal bleeding may be from the colitis seen on her CT scan. She is on Eliquis as well. Her colonoscopy in 2020 was unremarkable. Her Hgb seems stable. Rec: Observe, consider holding Eliquis if need be, follow Hgb and recheck her PT/INR. I don't think a colonoscopy is needed at this time. (3) Anorexia: Status: Acute Assessment and Plan: Imp: I suspect her anorexia/nausea are due to her comorbidities, including that of worsening renal failure. Rec: Supportive care, PPI/Carafate as above. Time Spent With Patient Time: Total time managing care of this patient today ____ minutes. Quality Stroke Does the patient have a stroke diagnosis?: No VTE Prior VTE?: No VTE Risk Level:: Medical - moderate - high VTE Device Contraindication: N/A - Device Ordered VTE Drug Contraindication: N/A - Med Ordered
[2022-10-26] MEDS: Sucralfate Oral Suspension 1 GM/10 ML ORAL.SUSP PO ×2 (17:36→20:52)
[2022-10-26] MEDS: 0.9 % Sodium Chloride Flush 3 ML SYRINGE IVFLUSH ×2 (17:42→20:52)
[2022-10-26 18:16] LABS: Glucose, Whole Blood 174 mg/dL (60-115)
--- NOTE | 2022-10-26 19:26 | PM.PNNEP ---
Subjective Subjective Date of Service: 10/27/22 Interval history: at bedside. History from RN, patient, and EMR. Patient had a small amount of rectal bleeding with brown stool on a pad earlier today. She still c/o anorexia and upper abdominal discomfort.There has not been any vomiting. Physical Exam Vital Signs: Vital Signs: Last Vital Signs Temp 97.2 F 10/26/22 15:39 Pulse 63 10/26/22 15:39 Resp 20 10/26/22 15:39 BP 152/68 H 10/26/22 15:39 Pulse Ox 96 10/26/22 15:39 O2 Del Method Oxymask 10/26/22 15:39 O2 Flow Rate 4 10/26/22 15:39 FiO2 40 10/23/22 23:41 Oxygen Flow Rate 4 10/17/22 08:24 BMI result Body Mass Index 37.4 Const: General: cooperative and no acute distress Orientation/consciousness: patient oriented x3 Eyes: EOM: EOMs intact bilaterally Neck: Neck: Yes supple Resp: Auscultation: diminished lung sounds Cardio: Rate: regular rate GI: Palpation (GI): Soft to palpation Skin: General skin exam: no rashes or lesions noted Neuro: General: patient oriented x3 and moves all extremities Objective Data Labs 10/26/22 08:02 10/26/22 08:02 Labs: Laboratory Results - last 24 hr 10/25/22 10/26/22 10/26/22 19:39 07:18 08:02 WBC 8.9 RBC 3.18 L Hgb 9.5 L Hct 28.7 L MCV 90.3 MCH 29.9 MCHC 33.1 RDW 14.2 Plt Count 233 MPV 11.1 Absolute Nucleated RBC 0.000 Nucleated RBC % (auto) 0.0 Sodium Potassium Chloride Carbon Dioxide Anion Gap BUN Creatinine Estim Creat Clear Calc Estimated GFR POC Glucose 125 H 110 Random Glucose Calcium 10/26/22 10/26/22 10/26/22 08:02 11:27 15:57 WBC RBC Hgb Hct MCV MCH MCHC RDW Plt Count MPV Absolute Nucleated RBC Nucleated RBC % (auto) Sodium 146 H Potassium 3.2 L Chloride 101 Carbon Dioxide 28 Anion Gap 20 BUN 97 H Creatinine 4.96 H* Estim Creat Clear Calc 9.5 Estimated GFR 9 POC Glucose 145 H 174 H Random Glucose 100 Calcium 8.2 L Microbiology Microbiology Results: Microbiology 10/17/22 08:57 Blood - Venous Blood Culture - Final No growth after 5 days. 10/17/22 08:45 Blood - Venous Blood Culture - Final No growth after 5 days. Procedures Date of Service Date of Service: 10/26/22 Assessment & Plan Time Spent With Patient Time: Total time managing care of this patient today ____ minutes. Progress Note: Quality Stroke Does the patient have a stroke diagnosis?: No
[2022-10-26 19:57] LABS: Glucose, Whole Blood 161 mg/dL (60-115)
[2022-10-26] MEDS: Insulin Lispro 100 UNIT/ML 3 ML VIAL SUBCUT (20:50)
[2022-10-27] VITALS (7 sets, daily range): BP systolic 119–165; BP diastolic 41–59; PULSE 61–77; RESP 16–20; TEMP 36.4–36.9; O2SAT 92–97
[2022-10-27] MEDS: LORazepam 2 MG/ML VIAL 0.25 MG IVPUSH ×4 (00:05→22:14)
[2022-10-27] MEDS: vancomycin HCL 125 MG CAPSULE 250 MG PO ×4 (00:35→17:33)
[2022-10-27] MEDS: Morphine Sulfate 2 MG/ML CARTRIDGE 1 MG IVPUSH ×5 (02:21→22:13)
[2022-10-27 04:49] LABS: MANUAL DIFF FLAG NO
[2022-10-27 04:54] LABS: Basophils Absolute Auto 0.1 X10*3/uL (0.0-0.2); Basophils Percent Auto 0.6 % (0-2); Eosinophils Absolute Auto 0.3 X10*3/uL (0.0-0.4); Eosinophils Percent Auto 4.2 % (0-4); Hematocrit 27.6 % (37.0-47.0); Hemoglobin 9.1 g/dl (12.0-16.0); Imm Gran Pct Auto 3.7 % (0.0-0.4); Lymphocytes Absolute Auto 1.5 X10*3/uL (1.2-4.9); Lymphocytes Percent Auto 17.8 % (20-40); Mean Corpuscular Hemoglobin 29.4 pg (27.0-33.0); Mean Corpuscular Volume 89.3 fL (80.0-98.0); Mean Platelet Volume 11.6 fL (9.4-12.3); Monocytes Absolute Auto 0.6 X10*3/uL (0.1-1.2); Neutrophils Absolute Auto 5.5 x10*3/uL (2.0-8.3); Neutrophils Percent Auto 66.7 % (45-73); Platelet Count 229 X10*3/uL (160-400); Red Blood Count 3.09 X10*6/uL (4.20-5.50); Red Cell Distribution Width 14.5 % (11.0-16.0); White Blood Count 8.2 X10*3/uL (4.8-10.8)
[2022-10-27 04:59] LABS: INTERNATIONAL NORM RATIO 1.4 (0.9-1.1); Prothrombin Time 16.5 SEC (10.0-13.1)
[2022-10-27] MEDS: Levothyroxine Sodium 50 MCG TABLET PO (06:16)
[2022-10-27] MEDS: Omeprazole 20 MG CAPSULE.DR PO (06:16)
[2022-10-27 07:29] LABS: Glucose, Whole Blood 127 mg/dL (60-115)
[2022-10-27] MEDS: Isosorbide Mononitrate 60 MG TAB.ER.24H PO (08:23)
[2022-10-27] MEDS: Amiodarone HCL 200 MG TABLET 400 MG PO ×2 (08:23→19:59)
[2022-10-27] MEDS: amLODIPine Besylate 5 MG TABLET PO (08:23)
[2022-10-27] MEDS: Sucralfate Oral Suspension 1 GM/10 ML ORAL.SUSP PO ×4 (08:24→19:59)
[2022-10-27] MEDS: 0.9 % Sodium Chloride Flush 3 ML SYRINGE IVFLUSH ×3 (08:24→20:00)
[2022-10-27] MEDS: 0.9 % Sodium Chloride 500 ML 50 ML IVCONT ×2 (08:30→18:33)
--- NOTE | 2022-10-27 10:56 | P.PNNP_ITS ---
Subjective Subjective Date of Service: 10/27/22 Interval history: Events noted Physical Exam Vital Signs: Vital Signs: Last Vital Signs Temp 97.9 F 10/27/22 07:03 Pulse 61 10/27/22 07:03 Resp 16 10/27/22 07:03 BP 144/55 H 10/27/22 07:03 Pulse Ox 96 10/27/22 07:03 O2 Del Method Oxymask 10/27/22 07:03 O2 Flow Rate 4 10/27/22 07:03 FiO2 40 10/23/22 23:41 Oxygen Flow Rate 4 10/17/22 08:24 BMI result Body Mass Index 37.4 Const: General: cooperative and no acute distress Or ientation/consciousness: patient oriented x3 Eyes: EOM: EOMs intact bilaterally Neck: Neck: Yes supple Resp: Auscultation: diminished lung sounds Cardio: Rate: regular rate GI: Palpation (GI): Soft to palpation Skin: General skin exam: no rashes or lesions noted Neuro: General: patient oriented x3 and moves all extremities Objective Data Labs 10/27/22 04:02 10/26/22 08:02 Labs: Laboratory Results - last 24 hr 10/26/22 10/26/22 10/26/22 11:27 15:57 19:49 WBC RBC Hgb Hct MCV MCH MCHC RDW Plt Count MPV Immature Gran % (Auto) Neut % (Auto) Lymph % (Auto) [place] % (Auto) Eos % (Auto) Baso % (Auto) Lymph # (Auto) [place] # (Auto) Eos # (Auto) Baso # (Auto) Abs Immat Gran (auto) Absolute Neuts (auto) Absolute Nucleated RBC Nucleated RBC % (auto) PT INR POC Glucose 145 H 174 H 161 H 10/27/22 10/27/22 10/27/22 04:02 04:02 07:01 WBC 8.2 RBC 3.09 L Hgb 9.1 L Hct 27.6 L MCV 89.3 MCH 29.4 MCHC 33.0 RDW 14.5 Plt Count 229 MPV 11.6 Immature Gran % (Auto) 3.7 H Neut % (Auto) 66.7 Lymph % (Auto) 17.8 L [place] % (Auto) 7.0 Eos % (Auto) 4.2 H Baso % (Auto) 0.6 Lymph # (Auto) 1.5 [place] # (Auto) 0.6 Eos # (Auto) 0.3 Baso # (Auto) 0.1 Abs Immat Gran (auto) 0.30 H Absolute Neuts (auto) 5.5 Absolute Nucleated RBC 0.000 Nucleated RBC % (auto) 0.0 PT 16.5 H INR 1.4 H POC Glucose 127 H Microbiology Microbiology Results: Microbiology 10/17/22 08:57 Blood - Venous Blood Culture - Final No growth after 5 days. 10/17/22 08:45 Blood - Venous Blood Culture - Final No growth after 5 days. Procedures Date of Service Date of Service: 10/27/22 Assessment & Plan Assessment and plan (1) Acute kidney injury superimposed on CKD: Status: Acute Assessment and Plan: Has CKD 3b at baseline; Currently KEILA due to CRS/PNA Renal function continues to worsen Hold diuretics Creatinine continues to increase. Add D5W to correct hypernatremia No ACEI/ARB/NSAID's for now No reason to suspect AIN/GN/Obstructive uropathy [id number]. Replace as needed. Anemia No indication for dialysis yet Continue rest of current supportive care for now; Time Spent With Patient Time: Total time managing care of this patient today ____ minutes. Progress Note: Quality Stroke Does the patient have a stroke diagnosis?: No
[2022-10-27 11:27] LABS: Glucose, Whole Blood 151 mg/dL (60-115)
[2022-10-27 11:43] LABS: Anion Gap 17 (12-20); Blood Urea Nitrogen 96 mg/dL (9-16); Calcium 8.2 mg/dL (8.4-10.2); Carbon Dioxide 29 mmol/L (22-29); Chloride 103 mmol/L (96-108); Estimated Glomerular Filt Rate 10; Glucose Random 147 mg/dL (60-115); Potassium 3.3 mmol/L (3.3-5.1); Sodium 146 mmol/L (135-145)
--- NOTE | 2022-10-27 12:21 | MHC.SLORD ---
Speech Language Pathology Order Status: Pt refused PO trials this afternoon. Pt w/ ample food and liquids at bedside (juices, applesauce). [employer]ING [employer]PARTMENT [employer]PERVISOR provided pt with extra cups as requested. Pt has since been advanced from clear liquid diet, now on pureed food. STITCHING DEPARTMENT SUPERVISOR will continue to follow to monitor tolerance and re-assess for potential advancement.
--- NOTE | 2022-10-27 12:37 | HO.PM.IMPN ---
Subjective Subjective Date of Service: 10/27/22 Interval History: seen and examined this morning follow up for respiratory failure, pneumonia appears much better this morning Review of Systems Review of Systems: Yes all other systems are reviewed and are negative Constitutional Constitutional: Denies chills and Denies fever(s) ENT Ears, Nose, Mouth, and Throat: Denies dizziness Cardiovascular Cardiovascular: Denies chest pain, Denies palpitations and Denies dyspnea Respiratory Respiratory: Reports cough and Denies dyspnea Gastrointestinal Gastrointestinal: Reports abdominal pain, Reports diarrhea and Denies vomiting Neurologic Neurologic: Denies dizziness Endocrine Endocrine: Denies palpitations Physical Exam Vital Signs: Vital Signs: Last Vital Signs Temp 98.4 F 10/27/22 11:18 Pulse 65 10/27/22 11:18 Resp 20 10/27/22 11:18 BP 119/41 L 10/27/22 11:18 Pulse Ox 95 10/27/22 11:18 O2 Del Method Nasal Cannula 10/27/22 11:18 O2 Flow Rate 3 10/27/22 11:18 FiO2 40 10/23/22 23:41 Oxygen Flow Rate 4 10/17/22 08:24 BMI result Body Mass Index 37.4 Appearing in no acute distress lung sounds are clear to auscultation heart regular rate rhythm, clear S1, S2 positive bowel sounds, abdomen is soft, nontender neuro patient is alert x3, no focal deficits Labile emotions Objective Data Active Medications Acetaminophen (Acetaminophen 325 Mg Tablet) 650 mg PO Q6H PRN PRN Reason: Pain, Mild (Pain Scale 1-3) Last Admin: 10/24/22 14:35 Dose: 650 mg Documented By: JOSE Amiodarone HCl (Amiodarone Hcl 200 Mg Tablet) 400 mg PO BID COUNTS INCLUDE 234 BEDS AT THE [facility] Last Admin: 10/27/22 08:23 Dose: 400 mg Documented By: SEGUNDO Amlodipine Besylate (Amlodipine Besylate 5 Mg Tablet) 5 mg PO DAILY COUNTS INCLUDE 234 BEDS AT THE [facility]; Protocol Last Admin: 10/27/22 08:23 Dose: 5 mg Documented By: SEGUNDO Apixaban (Apixaban 5 Mg Tablet) 5 mg PO BID COUNTS INCLUDE 234 BEDS AT THE [facility] Last Admin: 10/26/22 07:59 Dose: 5 mg Documented By: SOLISPE Docusate Sodium (Docusate Sodium 100 Mg Capsule) 100 mg PO DAILY PRN PRN Reason: Constipation Glucose (Glucose Gel 15 Gm Gel..Gram.) 15 gm PO Q15M PRN; Protocol PRN Reason: per Hypoglycemia Standing Ord. Dextrose (D10) 250 mls @ 750 mls/hr IV Q15M PRN; Protocol PRN Reason: per Hypoglycemia Standing Ord. Sodium Chloride (Ns) 500 mls @ 50 mls/hr IVCONT .Q10H COUNTS INCLUDE 234 BEDS AT THE [facility] Last Admin: 10/27/22 08:30 Dose: 50 mls/hr Documented By: SEGUNDO Insulin Human Lispro (Insulin Lispro 100 Unit/Ml 3 Ml Vial) 0 unit SUBCUT QIDACHS COUNTS INCLUDE 234 BEDS AT THE [facility]; Protocol Last Admin: 10/27/22 11:34 Dose: Not Given Documented By: SEGUNDO Non-Admin Reason: No Insulin Coverage Isosorbide Mononitrate (Isosorbide Mononitrate 60 Mg Tab.Er.24h) 60 mg PO DAILY COUNTS INCLUDE 234 BEDS AT THE [facility]; Protocol Last Admin: 10/27/22 08:23 Dose: 60 mg Documented By: SEGUNDO Levothyroxine Sodium (Levothyroxine Sodium 50 Mcg Tablet) 50 mcg PO DAILY@629 COUNTS INCLUDE 234 BEDS AT THE [facility] Last Admin: 10/27/22 06:16 Dose: 50 mcg Documented By: KELLI Lorazepam (Lorazepam 2 Mg/Ml Vial) 0.25 mg IVPUSH Q6H PRN PRN Reason: anxiety Last Admin: 10/27/22 06:20 Dose: 0.25 mg Documented By: KELLI Morphine Sulfate (Morphine Sulfate 2 Mg/Ml Cartridge) 1 mg IVPUSH Q4H PRN; Protocol PRN Reason: Pain, Severe (Pain Scale 7-10) Last Admin: 10/27/22 11:08 Dose: 1 mg Documented By: SEGUNDO Omeprazole (Omeprazole 20 Mg Capsule.) 20 mg PO DAILY@0630 COUNTS INCLUDE 234 BEDS AT THE [facility] Last Admin: 10/27/22 06:16 Dose: 20 mg Documented By: KELLI Ondansetron HCl (Ondansetron Hcl 4 Mg/2 Ml Vial) 4 mg IVPUSH Q6H PRN PRN Reason: Nausea and Vomiting Polyethylene Glycol (Polyethylene Glycol 3350 17 Gm Powd.Pack) 17 gm PO BID COUNTS INCLUDE 234 BEDS AT THE [facility] Last Admin: 10/22/22 08:42 Dose: Not Given Documented By: DARLENE Non-Admin Reason: loose stool Sodium Chloride (0.9 % Sodium Chloride Flush 3 Ml Syringe) 3 ml IVFLUSH QSHIFT COUNTS INCLUDE 234 BEDS AT THE [facility] Last Admin: 10/27/22 08:24 Dose: 3 ml Documented By: SEGUNDO Sucralfate (Sucralfate Oral Suspension 1 Gm/10 Ml Oral.Susp) 1 gm PO QIDACHS COUNTS INCLUDE 234 BEDS AT THE [facility] Last Admin: 10/27/22 08:24 Dose: 1 gm Documented By: SEGUNDO Vancomycin HCl (Vancomycin Hcl 125 Mg Capsule) 250 mg PO Q6H COUNTS INCLUDE 234 BEDS AT THE [facility] Stop: 10/31/22 12:59 Last Admin: 10/27/22 08:23 Dose: 250 mg Documented By: SEGUNDO Labs 10/27/22 04:02 10/27/22 10:53 Labs: Laboratory Results - last 24 hr 10/26/22 10/26/22 10/27/22 15:57 19:49 04:02 MCV 89.3 MCH 29.4 MCHC 33.0 RDW 14.5 Plt Count 229 MPV 11.6 Immature Gran % (Auto) 3.7 H Neut % (Auto) 66.7 Lymph % (Auto) 17.8 L [place] % (Auto) 7.0 Eos % (Auto) 4.2 H Baso % (Auto) 0.6 Lymph # (Auto) 1.5 [place] # (Auto) 0.6 Eos # (Auto) 0.3 Baso # (Auto) 0.1 Abs Immat Gran (auto) 0.30 H Absolute Neuts (auto) 5.5 Absolute Nucleated RBC 0.000 Nucleated RBC % (auto) 0.0 PT INR Anion Gap Estim Creat Clear Calc Estimated GFR POC Glucose 174 H 161 H Random Glucose Calcium 10/27/22 10/27/22 10/27/22 04:02 07:01 10:53 MCV MCH MCHC RDW Plt Count MPV Immature Gran % (Auto) Neut % (Auto) Lymph % (Auto) [place] % (Auto) Eos % (Auto) Baso % (Auto) Lymph # (Auto) [place] # (Auto) Eos # (Auto) Baso # (Auto) Abs Immat Gran (auto) Absolute Neuts (auto) Absolute Nucleated RBC Nucleated RBC % (auto) PT 16.5 H INR 1.4 H Anion Gap 17 Estim Creat Clear Calc 15.0 Estimated GFR 10 POC Glucose 127 H Random Glucose 147 H Calcium 8.2 L 10/27/22 11:16 MCV MCH MCHC RDW Plt Count MPV Immature Gran % (Auto) Neut % (Auto) Lymph % (Auto) [place] % (Auto) Eos % (Auto) Baso % (Auto) Lymph # (Auto) [place] # (Auto) Eos # (Auto) Baso # (Auto) Abs Immat Gran (auto) Absolute Neuts (auto) Absolute Nucleated RBC Nucleated RBC % (auto) PT INR Anion Gap Estim Creat Clear Calc Estimated GFR POC Glucose 151 H Random Glucose Calcium Assessment and Plan (1) PAF (paroxysmal atrial fibrillation): Status: Acute (2) Epigastric abdominal pain: Status: Acute (3) Acute on chronic diastolic CHF (congestive heart failure): Status: Acute (4) Acute respiratory failure with hypoxia and hypercapnia: Status: Acute Plan This is a 77-year-old female with history of HFpEF, T2DM, HTN, CKD 3/4, chronic back/neck pain secondary to spinal stenosis who presents to the emergency department with complaints of shortness of breath found to have acute respiratory failure secondary to CHF Bloody stool One episode likely from colitis as per GI examination Hold eliquis for now stable HH carafate for persistent diarrhea PPI KEILA on CKD 3b. trending up , likely from overdiuresis Cardiorenal. creatinine still elevated no alejandra/arb or nsaids as per nephro nephrology following Hold diuretics, give back small amount of fluid Hypernatremia. 146 mild likely from overduresis monitor Cdiff gene pos, A&B negative persistent diarrhea Vancomycin oral 10 days (10/31/22) Acute respiratory failure with hypoxia / hypercarbia. resolved secondary bilateral pna, CHF . Resolved s/p Intermittent BiPAP normal ABG down to 1-2 LNC acute on chronic HFpEF. Resolved echo 10/20/22 normal EF, severe pulm HTN Neg >6L to date. s/p bumex drip increased isosorbide to 60mg daily cardio following Colitis, extensive with abd pain. Ischemic vs infectious in light of cdiff GI following normal abd doppler elevated procalcitonin s/p Zosyn seen by general surgery, no surgical intervention required at this time Bilateral pneumonia s/p Zosyn and Doxycycline blood cultures negative paroxysmal atrial fibrillation now in sinus started on amiodarone 400 mg bid for 10 days, then change to 200 mg daily per cardiology note AC with Eliquis hypokalemia k low replace and follow levels check magnesium labile mood ativan prn for anxiety HTN home dose of metoprolol and norvasc d/c in ICU was previously on norvasc 5mg continue imdur T2DM SSI, ADA diet seen by speech rec NDD1 for now hypothyroid continue synthroid chronic pain gabapentin and home dose of oxycodone d/c during ICU stay receiving IV morphine for abdominal pain Gerd continue omeprazole Morbid obesity bmi 37.4 weight loss encouraged dvt ppx - Eliquis code status - Full code attending Dr. Prashanth AYALA. OOB Bed to chair, PT evaluation pending patient requires ongoing stay in the hospital for management of respiratory failure, CHF requiring IV diuresis, specialist consultation, close monitoring of respiratory status Time Spent With Patient Time: Total time managing care of this patient today ____ minutes. Quality Stroke Does the patient have a stroke diagnosis?: No VTE Prior VTE?: No VTE Risk Level:: Medical - moderate - high VTE Device Contraindication: N/A - Device Ordered VTE Drug Contraindication: N/A - Med Ordered
--- NOTE | 2022-10-27 14:40 | MHC.CM.PN ---
EMR REVIEWED, PT'S DIET ADVANCED AND NOW ON PUREED CONSISTENCY, WORSENING KIDNEY FX, PT ON GENTE IV FLUIDS, DISPO PENDING PT EVAL AND PT EVAL PENDING AT TIME OF THIS NOTE, YEFRI'Shea ECHOLSW FOLLOWING AND UPDATED, CM WILL CONT TO FOLLOW D/C NEEDS.
[2022-10-27 16:40] LABS: Glucose, Whole Blood 181 mg/dL (60-115)
[2022-10-27] MEDS: Insulin Lispro 100 UNIT/ML 3 ML VIAL SUBCUT (17:33)
[2022-10-27 20:51] LABS: Glucose, Whole Blood 146 mg/dL (60-115)
[2022-10-28] MEDS: vancomycin HCL 125 MG CAPSULE 250 MG PO ×4 (00:18→17:17)
[2022-10-28] MEDS: ondansetron HCL 4 MG/2 ML VIAL IVPUSH (00:18)
[2022-10-28 03:12] VITALS: BP 150/52; PULSE 62; RESP 18; TEMP 36.6; O2SAT 97
[2022-10-28] MEDS: Omeprazole 20 MG CAPSULE.DR PO (04:37)
[2022-10-28] MEDS: Levothyroxine Sodium 50 MCG TABLET PO (04:38)
[2022-10-28] MEDS: Morphine Sulfate 2 MG/ML CARTRIDGE 1 MG IVPUSH ×2 (04:38→08:51)
[2022-10-28] MEDS: LORazepam 2 MG/ML VIAL 0.25 MG IVPUSH ×3 (04:38→23:00)
[2022-10-28] MEDS: 0.9 % Sodium Chloride 500 ML 50 ML IVCONT (05:17)
[2022-10-28 05:43] LABS: Hematocrit 27.9 % (37.0-47.0); Mean Corpuscular HGB Conc 32.3 g/dl (31.0-35.0); Mean Corpuscular Hemoglobin 28.5 pg (27.0-33.0); Mean Corpuscular Volume 88.3 fL (80.0-98.0); Mean Platelet Volume 11.5 fL (9.4-12.3); NRBC Pct Auto 0.3 /100WBC (0.0-0.2); Platelet Count 223 X10*3/uL (160-400); Red Blood Count 3.16 X10*6/uL (4.20-5.50); Red Cell Distribution Width 14.5 % (11.0-16.0); White Blood Count 7.7 X10*3/uL (4.8-10.8)
[2022-10-28 06:11] LABS: Anion Gap 18 (12-20); Blood Urea Nitrogen 88 mg/dL (9-16); Calcium 8.4 mg/dL (8.4-10.2); Carbon Dioxide 26 mmol/L (22-29); Chloride 105 mmol/L (96-108); Creatinine Clr Calc Pharmacy 18.8; Estimated Glomerular Filt Rate 13; Glucose Random 131 mg/dL (60-115); Potassium 3.3 mmol/L (3.3-5.1); Sodium 146 mmol/L (135-145)
[2022-10-28 07:20] VITALS: BP 149/65; PULSE 63; RESP 20; TEMP 36; O2SAT 99
[2022-10-28 07:39] LABS: Glucose, Whole Blood 200 mg/dL (60-115)
--- NOTE | 2022-10-28 08:39 | MHC.CM.PN ---
EMR REVIEWED, PT EVAL RECOMMENDING STR, CATHERINE DEE UPDATED AND CM AWAITING RESPONSE, CM WILL CONT TO FOLLOW D/C NEEDS.
[2022-10-28] MEDS: Insulin Lispro 100 UNIT/ML 3 ML VIAL SUBCUT ×2 (08:49→22:13)
[2022-10-28] MEDS: Amiodarone HCL 200 MG TABLET 400 MG PO ×2 (08:50→22:02)
[2022-10-28] MEDS: 0.9 % Sodium Chloride Flush 3 ML SYRINGE IVFLUSH ×2 (08:50→17:18)
[2022-10-28] MEDS: amLODIPine Besylate 5 MG TABLET PO (08:50)
[2022-10-28] MEDS: Sucralfate Oral Suspension 1 GM/10 ML ORAL.SUSP PO ×4 (08:50→22:01)
[2022-10-28] MEDS: Isosorbide Mononitrate 60 MG TAB.ER.24H PO (08:50)
--- NOTE | 2022-10-28 09:47 | P.PNIM_ITS ---
Subjective Subjective Date of Service: 10/28/22 Interval History: seen and examined this morning follow up for respiratory failure, pneumonia appears much better this morning crying often, feeling sad and depressed Review of Systems Review of Systems: Yes all other systems are reviewed and are negative Constitutional Constitutional: Denies chills and Denies fever(s) ENT Ears, Nose, Mouth, and Throat: Denies dizziness Cardiovascular Cardiovascular: Denies chest pain, Denies palpitations and Denies dyspnea Respiratory Respiratory: Reports cough and Denies dyspnea Gastrointestinal Gastrointestinal: Reports abdominal pain, Reports diarrhea and Denies vomiting Neurologic Neurologic: Denies dizziness Endocrine Endocrine: Denies palpitations Physical Exam Vital Signs: Vital Signs: Last Vital Signs Temp 96.8 F 10/28/22 07:20 Pulse 63 10/28/22 07:20 Resp 20 10/28/22 07:20 BP 149/65 H 10/28/22 07:20 Pulse Ox 99 10/28/22 07:20 O2 Del Method Oxymask 10/28/22 07:20 O2 Flow Rate 4 10/28/22 07:20 FiO2 40 10/23/22 23:41 Oxygen Flow Rate 4 10/17/22 08:24 BMI result Body Mass Index 0.1 Appearing in no acute distress lung sounds are clear to auscultation heart regular rate rhythm, clear S1, S2 positive bowel sounds, abdomen is soft, nontender neuro patient is alert x3, no focal deficits Objective Data Active Medications Acetaminophen (Acetaminophen 325 Mg Tablet) 650 mg PO Q6H PRN PRN Reason: Pain, Mild (Pain Scale 1-3) Last Admin: 10/24/22 14:35 Dose: 650 mg Documented By: JOSE Amiodarone HCl (Amiodarone Hcl 200 Mg Tablet) 400 mg PO BID [facility] Last Admin: 10/28/22 08:50 Dose: 400 mg Documented By: SEGUNDO Amlodipine Besylate (Amlodipine Besylate 5 Mg Tablet) 5 mg PO DAILY [facility]; Protocol Last Admin: 10/28/22 08:50 Dose: 5 mg Documented By: SEGUNDO Apixaban (Apixaban 5 Mg Tablet) 5 mg PO BID [facility] Last Admin: 10/26/22 07:59 Dose: 5 mg Documented By: SOLISTORI Docusate Sodium (Docusate Sodium 100 Mg Capsule) 100 mg PO DAILY PRN PRN Reason: Constipation Glucose (Glucose Gel 15 Gm Gel..Gram.) 15 gm PO Q15M PRN; Protocol PRN Reason: per Hypoglycemia Standing Ord. Dextrose (D10) 250 mls @ 750 mls/hr IV Q15M PRN; Protocol PRN Reason: per Hypoglycemia Standing Ord. Insulin Human Lispro (Insulin Lispro 100 Unit/Ml 3 Ml Vial) 0 unit SUBCUT QIDAS [facility]; Protocol Last Admin: 10/28/22 08:49 Dose: 2 unit Documented By: SEGUNDO Isosorbide Mononitrate (Isosorbide Mononitrate 60 Mg Tab.Er.24h) 60 mg PO DAILY [facility]; Protocol Last Admin: 10/28/22 08:50 Dose: 60 mg Documented By: SEGUNDO Levothyroxine Sodium (Levothyroxine Sodium 50 Mcg Tablet) 50 mcg PO DAILY@629 [facility] Last Admin: 10/28/22 04:38 Dose: 50 mcg Documented By: KELLI Lorazepam (Lorazepam 2 Mg/Ml Vial) 0.25 mg IVPUSH Q6H PRN PRN Reason: anxiety Last Admin: 10/28/22 04:38 Dose: 0.25 mg Documented By: KELLI Morphine Sulfate (Morphine Sulfate 2 Mg/Ml Cartridge) 1 mg IVPUSH Q4H PRN; Protocol PRN Reason: Pain, Severe (Pain Scale 8-10) Last Admin: 10/28/22 08:51 Dose: 1 mg Documented By: SEGUNDO Omeprazole (Omeprazole 20 Mg Capsule.Dr) 20 mg PO DAILY@629 [facility] Last Admin: 10/28/22 04:37 Dose: 20 mg Documented By: KELLI Ondansetron HCl (Ondansetron Hcl 4 Mg/2 Ml Vial) 4 mg IVPUSH Q6H PRN PRN Reason: Nausea and Vomiting Last Admin: 10/28/22 00:18 Dose: 4 mg Documented By: KELLI Sodium Chloride (0.9 % Sodium Chloride Flush 3 Ml Syringe) 3 ml IVFLUSH [facility] Last Admin: 10/28/22 08:50 Dose: 3 ml Documented By: SEGUNDO Sucralfate (Sucralfate Oral Suspension 1 Gm/10 Ml Oral.Susp) [facility] Last Admin: 10/28/22 08:50 Dose: 1 gm Documented By: SEGUNDO Vancomycin HCl (Vancomycin Hcl 125 Mg Capsule) 250 mg PO Q6H [facility] Stop: 10/31/22 12:59 Last Admin: 10/28/22 06:35 Dose: 250 mg Documented By: KELLI Labs 10/28/22 04:09 10/28/22 04:09 Labs: Laboratory Results - last 24 hr 10/27/22 10/27/22 10/27/22 10:53 11:16 16:31 MCV MCH MCHC RDW Plt Count MPV Absolute Nucleated RBC Nucleated RBC % (auto) Anion Gap 17 Estim Creat Clear Calc 15.0 Estimated GFR 10 POC Glucose 151 H 181 H Random Glucose 147 H Calcium 8.2 L 10/27/22 10/28/22 10/28/22 20:35 04:09 04:09 MCV 88.3 MCH 28.5 MCHC 32.3 RDW 14.5 Plt Count 223 MPV 11.5 Absolute Nucleated RBC 0.020 H Nucleated RBC % (auto) 0.3 H Anion Gap 18 Estim Creat Clear Calc 18.8 Estimated GFR 13 POC Glucose 146 H Random Glucose 131 H Calcium 8.4 10/28/22 07:20 MCV MCH MCHC RDW Plt Count MPV Absolute Nucleated RBC Nucleated RBC % (auto) Anion Gap Estim Creat Clear Calc Estimated GFR POC Glucose 200 H Random Glucose Calcium Assessment and Plan (1) PAF (paroxysmal atrial fibrillation): Status: Acute (2) Epigastric abdominal pain: Status: Acute (3) Acute on chronic diastolic CHF (congestive heart failure): Status: Acute (4) Acute respiratory failure with hypoxia and hypercapnia: Status: Acute Plan This is a 77-year-old female with history of HFpEF, T2DM, HTN, CKD 3/4, chronic back/neck pain secondary to spinal stenosis who presents to the emergency department with complaints of shortness of breath found to have acute respiratory failure secondary to CHF labile mood ativan prn for anxiety Psych consult Bloody stool. Resolved One episode likely from colitis as per GI examination Hold eliquis for now stable HH carafate for persistent diarrhea PPI KEILA on CKD 3b. trending down , likely from overdiuresis Cardiorenal. creatinine still elevated no alejandra/arb or nsaids as per nephro nephrology following Hold diuretics, give back small amount of fluid Hypernatremia. 146 mild likely from overduresis monitor Cdiff gene pos, A&B negative persistent diarrhea Vancomycin oral 10 days (10/31/22) Acute respiratory failure with hypoxia / hypercarbia. resolved secondary bilateral pna, CHF . Resolved s/p Intermittent BiPAP normal ABG down to 1-2 LNC acute on chronic HFpEF. Resolved echo 10/20/22 normal EF, severe pulm HTN Neg >6L to date. s/p bumex drip increased isosorbide to 60mg daily cardio following Colitis, extensive with abd pain. Ischemic vs infectious in light of cdiff GI following normal abd doppler elevated procalcitonin s/p Zosyn seen by general surgery, no surgical intervention required at this time Bilateral pneumonia s/p Zosyn and Doxycycline blood cultures negative paroxysmal atrial fibrillation now in sinus started on amiodarone 400 mg bid for 10 days, then change to 200 mg daily per cardiology note AC with Eliquis hypokalemia k low replace and follow levels check magnesium HTN home dose of metoprolol and norvasc d/c in ICU was previously on norvasc 5mg continue imdur T2DM SSI, ADA diet seen by speech rec NDD1 for now hypothyroid continue synthroid chronic pain gabapentin and home dose of oxycodone d/c during ICU stay receiving IV morphine for abdominal pain Gerd continue omeprazole Morbid obesity bmi 37.4 weight loss encouraged dvt ppx - Eliquis code status - Full code attending Dr. Prashanth AYALA. Encourage OOB Bed to chair, PT evaluation rec STR patient requires ongoing stay in the hospital for management of close monitoring of respiratory status, ongoing diarrhea and safe disposition Time Spent With Patient Time: Total time managing care of this patient today ____ minutes. Quality Stroke Does the patient have a stroke diagnosis?: No VTE Prior VTE?: No VTE Risk Level:: Medical - moderate - high VTE Device Contraindication: N/A - Device Ordered VTE Drug Contraindication: N/A - Med Ordered
--- NOTE | 2022-10-28 10:45 | PM.PNNEP ---
Subjective Subjective Date of Service: 10/29/22 Interval history: Event s noted Physical Exam Vital Signs: Vital Signs: Last Vital Signs Temp 96.8 F 10/28/22 07:20 Pulse 63 10/28/22 07:20 Resp 20 10/28/22 07:20 BP 149/65 H 10/28/22 07:20 Pulse Ox 99 10/28/22 07:20 O2 Del Method Oxymask 10/28/22 07:20 O2 Flow Rate 4 10/28/22 07:20 FiO2 40 10/23/22 23:41 Oxygen Flow Rate 4 10/17/22 08:24 BMI result Body Mass Index 0.1 Const: General: cooperative and no acute distress Orientation/consciousness: patient oriented x3 Eyes: EOM: EOMs intact bilaterally Neck: Neck: Yes supple Resp: Auscultation: diminished lung sounds Cardio: Rate: regular rate GI: Palpation (GI): Soft to palpation Skin: General skin exam: no rashes or lesions noted Neuro: General: patient oriented x3 and moves all extremities Objective Data Labs 10/28/22 04:09 10/28/22 04:09 Labs: Laboratory Results - last 24 hr 10/27/22 10/27/22 10/27/22 10:53 11:16 16:31 WBC RBC Hgb Hct MCV MCH MCHC RDW Plt Count MPV Absolute Nucleated RBC Nucleated RBC % (auto) Sodium 146 H Potassium 3.3 Chloride 103 Carbon Dioxide 29 Anion Gap 17 BUN 96 H Creatinine 4.45 H* Estim Creat Clear Calc 15.0 Estimated GFR 10 POC Glucose 151 H 181 H Random Glucose 147 H Calcium 8.2 L 10/27/22 10/28/22 10/28/22 20:35 04:09 04:09 WBC 7.7 RBC 3.16 L Hgb 9.0 L Hct 27.9 L MCV 88.3 MCH 28.5 MCHC 32.3 RDW 14.5 Plt Count 223 MPV 11.5 Absolute Nucleated RBC 0.020 H Nucleated RBC % (auto) 0.3 H Sodium 146 H Potassium 3.3 Chloride 105 Carbon Dioxide 26 Anion Gap 18 BUN 88 H Creatinine 3.47 H Estim Creat Clear Calc 18.8 Estimated GFR 13 POC Glucose 146 H Random Glucose 131 H Calcium 8.4 10/28/22 07:20 WBC RBC Hgb Hct MCV MCH MCHC RDW Plt Count MPV Absolute Nucleated RBC Nucleated RBC % (auto) Sodium Potassium Chloride Carbon Dioxide Anion Gap BUN Creatinine Estim Creat Clear Calc Estimated GFR POC Glucose 200 H Random Glucose Calcium Microbiology Microbiology Results: Microbiology 10/17/22 08:57 Blood - Venous Blood Culture - Final No growth after 5 days. 10/17/22 08:45 Blood - Venous Blood Culture - Final No growth after 5 days. Procedures Date of Service Date of Service: 10/28/22 Assessment & Plan Assessment and plan (1) Acute kidney injury superimposed on CKD: Status: Acute Assessment and Plan: Has CKD 3b at baseline; Currently KEILA due to CRS/PNA Renal function continues to worsen Hold diuretics Creatinine continues to increase. No ACEI/ARB/NSAID's for now No reason to suspect AIN/GN/Obstructive uropathy [id number]. Replace as needed. Anemia Can restart diuretics in 2- 3 days Continue rest of current supportive care for now; Time Spent With Patient Time: Total time managing care of this patient today ____ minutes. Progress Note: Quality Stroke Does the patient have a stroke diagnosis?: No
[2022-10-28 11:10] LABS: Glucose, Whole Blood 146 mg/dL (60-115)
[2022-10-28 11:41] VITALS: BP 133/51; PULSE 60; RESP 16; TEMP 36.4; O2SAT 94
[2022-10-28 15:19] VITALS: BP 153/51; PULSE 64; RESP 17; TEMP 36.8; O2SAT 95
[2022-10-28 15:39] LABS: Glucose, Whole Blood 136 mg/dL (60-115)
[2022-10-28 19:21] VITALS: BP 158/60; PULSE 67; RESP 17; TEMP 36.7; O2SAT 95
[2022-10-28 21:00] LABS: Glucose, Whole Blood 240 mg/dL (60-115)
[2022-10-28 22:16] LABS: Glucose, Whole Blood 216 mg/dL (60-115)
[2022-10-28] MEDS: Acetaminophen 325 MG TABLET 650 MG PO (23:10)
[2022-10-28 23:55] VITALS: BP 143/65; PULSE 63; RESP 16; TEMP 36.4; O2SAT 95
[2022-10-29] VITALS (8 sets, daily range): BP systolic 130–173; BP diastolic 62–74; PULSE 55–91; RESP 14–20; TEMP 35.7–36.8; O2SAT 94–97
[2022-10-29] MEDS: vancomycin HCL 125 MG CAPSULE 250 MG PO ×4 (02:05→19:21)
[2022-10-29] MEDS: Simethicone 80 MG TAB.CHEW PO (02:05)
[2022-10-29] MEDS: traMADoL HCL 50 MG TABLET PO (02:05)
[2022-10-29] MEDS: 0.9 % Sodium Chloride Flush 3 ML SYRINGE IVFLUSH ×3 (02:09→17:17)
[2022-10-29] MEDS: Levothyroxine Sodium 50 MCG TABLET PO (06:45)
[2022-10-29] MEDS: Omeprazole 20 MG CAPSULE.DR PO (06:45)
[2022-10-29 06:54] LABS: Anion Gap 15 (12-20); Blood Urea Nitrogen 68 mg/dL (9-16); Calcium 8.5 mg/dL (8.4-10.2); Carbon Dioxide 29 mmol/L (22-29); Chloride 105 mmol/L (96-108); Creatinine Clr Calc Pharmacy 25.1; Estimated Glomerular Filt Rate 18; Glucose Random 121 mg/dL (60-115); Sodium 146 mmol/L (135-145)
--- NOTE | 2022-10-29 07:10 | PC.NURSE ---
Pt alert and oriented x4, Very weak and weepy at times. she c/o crampy bloated abdominal pain9/10. She had tylenol x1 while awaiting further orders then Tramadol with patient sleeping with no s/s distress after both. Pt incontinent of liquid stool. buttocks pink and tender to cleansing. MD aware and flexiseal placed as ordered. Pt initially very anxious of flexi but was able to be soothed and pt allowed insertion. she tolerated well. tube patent and draining liquid brown stool. Purewick maintianed with clear yellow o/p. Heels floated and safety maintained.
[2022-10-29 08:06] LABS: Glucose, Whole Blood 127 mg/dL (60-115)
[2022-10-29] MEDS: Sucralfate Oral Suspension 1 GM/10 ML ORAL.SUSP PO ×4 (08:47→20:11)
[2022-10-29] MEDS: amLODIPine Besylate 5 MG TABLET PO (08:48)
[2022-10-29] MEDS: Isosorbide Mononitrate 60 MG TAB.ER.24H PO (08:48)
[2022-10-29] MEDS: Amiodarone HCL 200 MG TABLET 400 MG PO ×2 (08:48→20:11)
[2022-10-29] MEDS: Potassium Chloride Packet 20 MEQ PACKET 40 MEQ PO (08:48)
[2022-10-29] MEDS: LORazepam 2 MG/ML VIAL 0.25 MG IVPUSH (08:54)
--- NOTE | 2022-10-29 11:01 | PM.PNNEP ---
Subjective Subjective Date of Service: 10/30/22 Interval history: Event s noted Physical Exam Vital Signs: Vital Signs: Last Vital Signs Temp 97.7 F 10/29/22 07:34 Pulse 59 10/29/22 07:34 Resp 20 10/29/22 07:34 BP 173/74 H 10/29/22 07:34 Pulse Ox 97 10/29/22 07:34 O2 Del Method Nasal Cannula 10/29/22 07:34 O2 Flow Rate 2 10/29/22 07:34 FiO2 40 10/23/22 23:41 Oxygen Flow Rate 4 10/17/22 08:24 BMI result Body Mass Index 0.1 Const: General: cooperative and no acute distress Orientation/consciousness: patient oriented x3 Eyes: EOM: EOMs intact bilaterally Neck: Neck: Yes supple Resp: Auscultation: diminished lung sounds Cardio: Rate: regular rate GI: Palpation (GI): Soft to palpation Skin: General skin exam: no rashes or lesions noted Neuro: General: patient oriented x3 and moves all extremities Objective Data Labs 10/28/22 04:09 10/29/22 05:57 Labs: Laboratory Results - last 24 hr 10/28/22 10/28/22 10/28/22 11:01 15:21 19:23 Sodium Potassium Chloride Carbon Dioxide Anion Gap BUN Creatinine Estim Creat Clear Calc Estimated GFR POC Glucose 146 H 136 H 240 H Random Glucose Calcium 10/28/22 10/29/22 10/29/22 22:00 05:57 07:58 Sodium 146 H Potassium 3.0 L Chloride 105 Carbon Dioxide 29 Anion Gap 15 BUN 68 H Creatinine 2.60 H Estim Creat Clear Calc 25.1 Estimated GFR 18 POC Glucose 216 H 127 H Random Glucose 121 H Calcium 8.5 Microbiology Microbiology Results: Microbiology 10/17/22 08:57 Blood - Venous Blood Culture - Final No growth after 5 days. 10/17/22 08:45 Blood - Venous Blood Culture - Final No growth after 5 days. Procedures Date of Service Date of Service: 10/29/22 Assessment & Plan Assessment and plan (1) Acute kidney injury superimposed on CKD: Status: Acute Assessment and Plan: Has CKD 3b at baseline; Currently KEILA due to CRS/PNA Renal function continues to worsen Hold diuretics Creatinine continues to increase. No ACEI/ARB/NSAID's for now No reason to suspect AIN/GN/Obstructive uropathy Meaudiqubwt-[id number]. Replace as needed. Anemia Can restart diuretics in 2 days as indicated Continue rest of current supportive care for now; Time Spent With Patient Time: Total time managing care of this patient today ____ minutes. Progress Note: Quality Stroke Does the patient have a stroke diagnosis?: No
[2022-10-29 12:00] LABS: Glucose, Whole Blood 221 mg/dL (60-115)
--- NOTE | 2022-10-29 12:03 | P.PNIM_ITS ---
Subjective Subjective Date of Service: 10/29/22 Interval History: seen and examined this morning follow up for respiratory failure, pneumonia appears much better this morning crying often, feeling sad and depressed Review of Systems Review of Systems: Yes all other systems are reviewed and are negative Constitutional Constitutional: Denies chills and Denies fever(s) ENT Ears, Nose, Mouth, and Throat: Denies dizziness Cardiovascular Cardiovascular: Denies chest pain, Denies palpitations and Denies dyspnea Respiratory Respiratory: Reports cough and Denies dyspnea Gastrointestinal Gastrointestinal: Reports abdominal pain, Reports diarrhea and Denies vomiting Neurologic Neurologic: Denies dizziness Endocrine Endocrine: Denies palpitations Physical Exam Vital Signs: Vital Signs: Last Vital Signs Temp 98.3 F 10/29/22 11:34 Pulse 62 10/29/22 11:34 Resp 20 10/29/22 11:34 BP 159/68 H 10/29/22 11:34 Pulse Ox 95 10/29/22 11:34 O2 Del Method Nasal Cannula 10/29/22 11:34 O2 Flow Rate 2 10/29/22 11:34 FiO2 40 10/23/22 23:41 Oxygen Flow Rate 4 10/17/22 08:24 BMI result Body Mass Index 0.1 Appearing in no acute distress lung sounds are clear to auscultation heart regular rate rhythm, clear S1, S2 positive bowel sounds, abdomen is soft, nontender neuro patient is alert x3, no focal deficits Objective Data Active Medications Acetaminophen (Acetaminophen 325 Mg Tablet) 650 mg PO Q6H PRN PRN Reason: Pain, Mild (Pain Scale 1-3) Last Admin: 10/28/22 23:10 Dose: 650 mg Documented By: REJI Amiodarone HCl (Amiodarone Hcl 200 Mg Tablet) 400 mg PO BID [facility] Last Admin: 10/29/22 08:48 Dose: 400 mg Documented By: JOSE Amlodipine Besylate (Amlodipine Besylate 5 Mg Tablet) 5 mg PO DAILY [facility]; Protocol Last Admin: 10/29/22 08:48 Dose: 5 mg Documented By: JOSE Apixaban (Apixaban 5 Mg Tablet) 5 mg PO BID [facility] Last Admin: 10/26/22 07:59 Dose: 5 mg Documented By: MONICA Docusate Sodium (Docusate Sodium 100 Mg Capsule) 100 mg PO DAILY PRN PRN Reason: Constipation Glucose (Glucose Gel 15 Gm Gel..Gram.) 15 gm PO Q15M PRN; Protocol PRN Reason: per Hypoglycemia Standing Ord. Dextrose (D10) 250 mls @ 750 mls/hr IV Q15M PRN; Protocol PRN Reason: per Hypoglycemia Standing Ord. Insulin Human Lispro (Insulin Lispro 100 Unit/Ml 3 Ml Vial) 0 unit SUBCUT QIDAS [facility]; Protocol Last Admin: 10/29/22 08:24 Dose: Not Given Documented By: JOSE Non-Admin Reason: No Insulin Coverage Isosorbide Mononitrate (Isosorbide Mononitrate 60 Mg Tab.Er.24h) 60 mg PO DAILY [facility]; Protocol Last Admin: 10/29/22 08:48 Dose: 60 mg Documented By: JOSE Levothyroxine Sodium (Levothyroxine Sodium 50 Mcg Tablet) 50 mcg PO DAILY@629 [facility] Last Admin: 10/29/22 06:45 Dose: 50 mcg Documented By: REJI Lorazepam (Lorazepam 2 Mg/Ml Vial) 0.25 mg IVPUSH Q6H PRN PRN Reason: anxiety Last Admin: 10/29/22 08:54 Dose: 0.25 mg Documented By: JOSE Omeprazole (Omeprazole 20 Mg Capsule.) 20 mg PO DAILY@629 [facility] Last Admin: 10/29/22 06:45 Dose: 20 mg Documented By: REJI Ondansetron HCl (Ondansetron Hcl 4 Mg/2 Ml Vial) 4 mg IVPUSH Q6H PRN PRN Reason: Nausea and Vomiting Last Admin: 10/28/22 00:18 Dose: 4 mg Documented By: KELLI Sodium Chloride (0.9 % Sodium Chloride Flush 3 Ml Syringe) 3 ml IVFLUSH [facility] Last Admin: 10/29/22 08:56 Dose: 3 ml Documented By: JOSE Sucralfate (Sucralfate Oral Suspension 1 Gm/10 Ml Oral.Susp) 1 gm PO QIDAS [facility] Last Admin: 10/29/22 08:47 Dose: 1 gm Documented By: JOSE Vancomycin HCl (Vancomycin Hcl 125 Mg Capsule) 250 mg PO Q6H [facility] Stop: 10/31/22 12:59 Last Admin: 10/29/22 08:47 Dose: 250 mg Documented By: JOSE Labs 10/28/22 04:09 10/29/22 05:57 Labs: Laboratory Results - last 24 hr 10/28/22 10/28/22 10/28/22 15:21 19:23 22:00 Anion Gap Estim Creat Clear Calc Estimated GFR POC Glucose 136 H 240 H 216 H Random Glucose Calcium 10/29/22 10/29/22 10/29/22 05:57 07:58 11:34 Anion Gap 15 Estim Creat Clear Calc 25.1 Estimated GFR 18 POC Glucose 127 H 221 H Random Glucose 121 H Calcium 8.5 Assessment and Plan (1) PAF (paroxysmal atrial fibrillation): Status: Acute (2) Epigastric abdominal pain: Status: Acute (3) Acute on chronic diastolic CHF (congestive heart failure): Status: Acute (4) Acute respiratory failure with hypoxia and hypercapnia: Status: Acute Plan This is a 77-year-old female with history of HFpEF, T2DM, HTN, CKD 3/4, chronic back/neck pain secondary to spinal stenosis who presents to the emergency department with complaints of shortness of breath found to have acute respiratory failure secondary to CHF labile mood ativan prn for anxiety Psych consult pending Bloody stool. Resolved One episode likely from colitis as per GI examination Hold eliquis for now stable HH carafate for persistent diarrhea PPI KEILA on CKD 3b. trending down , likely from overdiuresis Cardiorenal. creatinine still elevated no alejandra/arb or nsaids as per nephro nephrology following Hold diuretics, give back small amount of fluid Hypernatremia. 146 mild likely from overduresis monitor Cdiff gene pos, A&B negative persistent diarrhea Vancomycin oral 10 days (10/31/22) Acute respiratory failure with hypoxia / hypercarbia. resolved secondary bilateral pna, CHF . Resolved s/p Intermittent BiPAP normal ABG down to 1-2 LNC acute on chronic HFpEF. Resolved echo 10/20/22 normal EF, severe pulm HTN Neg >6L to date. s/p bumex drip increased isosorbide to 60mg daily cardio following Colitis, extensive with abd pain. Ischemic vs infectious in light of cdiff GI following normal abd doppler elevated procalcitonin s/p Zosyn seen by general surgery, no surgical intervention required at this time Bilateral pneumonia s/p Zosyn and Doxycycline blood cultures negative paroxysmal atrial fibrillation now in sinus started on amiodarone 400 mg bid for 10 days, then change to 200 mg daily per cardiology note AC with Eliquis hypokalemia k low replace and follow levels check magnesium HTN home dose of metoprolol and norvasc d/c in ICU was previously on norvasc 5mg continue imdur T2DM SSI, ADA diet seen by speech rec NDD1 for now hypothyroid continue synthroid chronic pain gabapentin and home dose of oxycodone d/c during ICU stay receiving IV morphine for abdominal pain Gerd continue omeprazole Morbid obesity bmi 37.4 weight loss encouraged dvt ppx - Eliquis code status - Full code attending Dr. Prashanth AYALA. Encourage OOB Bed to chair, PT evaluation rec STR patient requires ongoing stay in the hospital for management of close monitoring of respiratory status, ongoing diarrhea and safe disposition Time Spent With Patient Time: Total time managing care of this patient today ____ minutes. Quality Stroke Does the patient have a stroke diagnosis?: No VTE Prior VTE?: No VTE Risk Level:: Medical - moderate - high VTE Device Contraindication: N/A - Device Ordered VTE Drug Contraindication: N/A - Med Ordered
[2022-10-29] MEDS: Acetaminophen 325 MG TABLET 650 MG PO (12:17)
[2022-10-29] MEDS: Insulin Lispro 100 UNIT/ML 3 ML VIAL SUBCUT ×3 (12:17→20:45)
--- NOTE | 2022-10-29 13:28 | P.CNPS_ITS ---
History of Present Illness Date of Service: 10/29/22 Chief Complaint: respiratory failure Reason for Consult: depression/anxiety HPI Narrative: per summary in medicine notes: This is a 77-year-old female with history of HFpEF, T2DM, HTN, CKD 3/4,? chronic back/neck pain secondary to spinal stenosis who presents to the emergency department with complaints of shortness of breath found to have acute respiratory failure secondary to CHF. pt was admitted on 10/17 and was subsequently found to have B/L PNA, c.diff colitis, KEILA. after 10 days of medical stabilization, consult placed for psych eval. pt had been expressed depression and anxiety and had been treated with PRN ativan up until psych consult. on interview, pt recounts her sequence of woes: 2020 - has NC 2020january 30 - her dog 2020february 04 - her 35 yo horse 2020 - her son from alcoholism 2021 - her mother, for whom she had been caring for the past 5 years, of alzheimer's dementia she reported dependable chronic pain of 8/10. she feels she is not listened to by doctors, either here or in the outpatient realm. she states she is depressed and anxious and is open to psychotherapy and medications. R/B of SSRIs discuss, pt agrees to start trial on zoloft 25 mg daily. Past Psychiatric History: hosp: none SA: none SIB: h/o slamming her hand int he door prior to teenage years after parental criticism. none since. trauma: denies outpt care: denies Medical Evaluation Reviewed: Yes [facility] Medical History (Updated 10/29/22 @ 15:53 by Mp Minor) CKD (chronic kidney disease), stage IV Diabetes Diastolic CHF HTN (hypertension) Spinal stenosis Thyroid activity decreased Family History: son - alcohol use disorder Social History: . Substance History: denies Trauma History: denies Diagnostics Vital Signs (24Hr): Vital Signs - 24 hr 10/28/22 15:19 10/28/22 19:21 10/28/22 23:55 Temperature 98.2 F 98.1 F 97.5 F Pulse Rate 64 67 63 Respiratory Rate 17 17 16 Blood Pressure 153/51 H 158/60 H 143/65 H Pulse Oximetry 95 95 95 Oxygen Delivery Method Nasal Cannula Nasal Cannula Nasal Cannula Oxygen Flow Rate 2 10/29/22 03:35 10/29/22 05:39 10/29/22 07:34 Temperature 98.0 F 96.2 F L 97.7 F Pulse Rate 60 91 59 Respiratory Rate 16 18 20 Blood Pressure 130/62 147/67 H 173/74 H Pulse Oximetry 97 94 97 Oxygen Delivery Method Nasal Cannula CPAP Nasal Cannula Oxygen Flow Rate 2 2 10/29/22 11:34 Temperature 98.3 F Pulse Rate 62 Respiratory Rate 20 Blood Pressure 159/68 H Pulse Oximetry 95 Oxygen Delivery Method Nasal Cannula Oxygen Flow Rate 2 BMI result Body Mass Index 0.1 Labs 10/28/22 04:09 10/29/22 05:57 Labs: Laboratory Results - last 48 hr 10/27/22 10/27/22 10/28/22 16:31 20:35 04:09 WBC 7.7 RBC 3.16 L Hgb 9.0 L Hct 27.9 L MCV 88.3 MCH 28.5 MCHC 32.3 RDW 14.5 Plt Count 223 MPV 11.5 Absolute Nucleated RBC 0.020 H Nucleated RBC % (auto) 0.3 H Sodium Potassium Chloride Carbon Dioxide Anion Gap BUN Creatinine Estim Creat Clear Calc Estimated GFR POC Glucose 181 H 146 H Random Glucose Calcium 10/28/22 10/28/22 10/28/22 04:09 07:20 11:01 WBC RBC Hgb Hct MCV MCH MCHC RDW Plt Count MPV Absolute Nucleated RBC Nucleated RBC % (auto) Sodium 146 H Potassium 3.3 Chloride 105 Carbon Dioxide 26 Anion Gap 18 BUN 88 H Creatinine 3.47 H Estim Creat Clear Calc 18.8 Estimated GFR 13 POC Glucose 200 H 146 H Random Glucose 131 H Calcium 8.4 10/28/22 10/28/22 10/28/22 15:21 19:23 22:00 WBC RBC Hgb Hct MCV MCH MCHC RDW Plt Count MPV Absolute Nucleated RBC Nucleated RBC % (auto) Sodium Potassium Chloride Carbon Dioxide Anion Gap BUN Creatinine Estim Creat Clear Calc Estimated GFR POC Glucose 136 H 240 H 216 H Random Glucose Calcium 10/29/22 10/29/22 10/29/22 05:57 07:58 11:34 WBC RBC Hgb Hct MCV MCH MCHC RDW Plt Count MPV Absolute Nucleated RBC Nucleated RBC % (auto) Sodium 146 H Potassium 3.0 L Chloride 105 Carbon Dioxide 29 Anion Gap 15 BUN 68 H Creatinine 2.60 H Estim Creat Clear Calc 25.1 Estimated GFR 18 POC Glucose 127 H 221 H Random Glucose 121 H Calcium 8.5 Imaging Radiology Impressions: ITS Impressions Chest X-Ray 10/17/22 09:04 IMPRESSION: Small pleural effusions with hazy basilar opacities. Central vascular prominence without significant interstitial change. Pulmonary Perfusion Imaging 10/17/22 11:00 IMPRESSION: Limited exam but no perfusion defects seen. Chest X-Ray 10/18/22 23:43 IMPRESSION: Low lung volumes with bibasilar atelectasis and possible trace left pleural effusion, unchanged. Superimposed consolidation cannot be excluded. Enlarged cardiac silhouette with pulmonary venous congestion. No appreciable pulmonary edema. Chest X-Ray 10/19/22 15:20 IMPRESSION: Enlarged cardiac silhouette and pulmonary venous redistribution. Question left base airspace disease. Differential would include asymmetric distribution of pulmonary edema and pneumonia. KUB X-Ray 10/19/22 15:20 IMPRESSION: 1. Nonobstructive bowel gas pattern. 2. Mild to moderate colonic stool burden. Hip X-Ray 10/20/22 13:13 IMPRESSION: No acute fractures or subluxation. 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 Chest X-Ray 10/20/22 14:00 IMPRESSION: CHF slightly increased from yesterday's exam. Abdomen/Pelvis CT 10/20/22 15:00 IMPRESSION: CT CHEST: Bibasilar airspace opacities. CT ABDOMEN PELVIS: 1. Mild diverticulitis of the sigmoid colon. 2. Chan catheter within the bladder. Chest CT 10/20/22 15:00 IMPRESSION: CT CHEST: Bibasilar airspace opacities. CT ABDOMEN PELVIS: 1. Mild diverticulitis of the sigmoid colon. 2. Chan catheter within the bladder. Abdomen Ultrasound 10/20/22 19:10 IMPRESSION: Unremarkable right upper quadrant ultrasound. The main portal vein is patent with appropriate hepatopedal flow Mental Status Exam Mental Status Exam Narrative: seen recumbent in hospital bed, rivas on. disheveled, but expected. cooperative. no PMA/PMR. speech nml rate, incr amount, nml loudness, nml latency. thoughts linear and logical. affect constricted, normo-intense, non- labile. mood crappy. denies SI/SIBI/HI/AVH. Medications Medications Current Medications Acetaminophen (Acetaminophen 325 Mg Tablet) 650 mg PO Q6H PRN PRN Reason: Pain, Mild (Pain Scale 1-3) Last Admin: 10/29/22 12:17 Dose: 650 mg Amiodarone HCl (Amiodarone Hcl 200 Mg Tablet) 400 mg PO BID [facility] Stop: 10/31/22 23:59 Last Admin: 10/29/22 08:48 Dose: 400 mg Amiodarone HCl (Amiodarone Hcl 200 Mg Tablet) 200 mg PO DAILY [facility] Amlodipine Besylate (Amlodipine Besylate 5 Mg Tablet) 5 mg PO DAILY [facility]; Protocol Last Admin: 10/29/22 08:48 Dose: 5 mg Apixaban (Apixaban 5 Mg Tablet) 5 mg PO BID [facility] Last Admin: 10/26/22 07:59 Dose: 5 mg Docusate Sodium (Docusate Sodium 100 Mg Capsule) 100 mg PO DAILY PRN PRN Reason: Constipation Glucose (Glucose Gel 15 Gm Gel..Gram.) 15 gm PO Q15M PRN; Protocol PRN Reason: per Hypoglycemia Standing Ord. Dextrose (D10) 250 mls @ 750 mls/hr IV Q15M PRN; Protocol PRN Reason: per Hypoglycemia Standing Ord. Insulin Human Lispro (Insulin Lispro 100 Unit/Ml 3 Ml Vial) 0 unit SUBCUT [facility]IDACHS [facility]; Protocol Last Admin: 10/29/22 12:17 Dose: 1 unit Isosorbide Mononitrate (Isosorbide Mononitrate 60 Mg Tab.Er.24h) 60 mg PO DAILY [facility]; Protocol Last Admin: 10/29/22 08:48 Dose: 60 mg Levothyroxine Sodium (Levothyroxine Sodium 50 Mcg Tablet) 50 mcg PO DAILY@629 [facility] Last Admin: 10/29/22 06:45 Dose: 50 mcg Lorazepam (Lorazepam 2 Mg/Ml Vial) 0.25 mg IVPUSH Q6H PRN PRN Reason: anxiety Last Admin: 10/29/22 08:54 Dose: 0.25 mg Omeprazole (Omeprazole 20 Mg Capsule.Dr) 20 mg PO DAILY@629 [facility] Last Admin: 10/29/22 06:45 Dose: 20 mg Ondansetron HCl (Ondansetron Hcl 4 Mg/2 Ml Vial) 4 mg IVPUSH Q6H PRN PRN Reason: Nausea and Vomiting Last Admin: 10/28/22 00:18 Dose: 4 mg Oxycodone HCl (Oxycodone Hcl Immed Release 5 Mg Tablet) 5 mg PO Q4H PRN PRN Reason: Pain, Mild (Pain Scale 1-3) Sodium Chloride (0.9 % Sodium Chloride Flush 3 Ml Syringe) 3 ml IVFLUSH [facility] Last Admin: 10/29/22 08:56 Dose: 3 ml Sucralfate (Sucralfate Oral Suspension 1 Gm/10 Ml Oral.Susp) 1 gm PO QIDACHS [facility] Last Admin: 10/29/22 12:17 Dose: 1 gm Vancomycin HCl (Vancomycin Hcl 125 Mg Capsule) 250 mg PO Q6H [facility] Stop: 10/31/22 12:59 Last Admin: 10/29/22 12:17 Dose: 250 mg Allergies Allergies Allergy/AdvReac Type Severity Reaction Status Date / Time levofloxacin [From LEVAQUIN] AdvReac Mild flushed Verified 10/11/22 11:12 Assessment & Plan Assessment & Plan (1) Depressive disorder: Status: Acute Code(s): F32.A - Depression, unspecified Plan treat anemia as a potential cause of depression. check B12/folate, TSH similarly. add sertraline 25 mg daily for depression and anxiety. refer for outpatient therapy and medication. Total time managing care of this patient today __90__ minutes.
--- NOTE | 2022-10-29 15:15 | MHC.CM.PN ---
EMR REVIEWED, PSYCH EVAL PENDING D/T LABILE/FREQ CRYING/ANXIETY/DEPRESSION, PT DECLINING PT X2 TODAY, [facility] REPORT THEY WILL REVIEW HOWEVER UNLIKELY TO TAKE PT AND REFERRAL EXPANDED, CM AWAITING BED OFFER AND WILL CONT TO FOLLOW D/C NEEDS.
[2022-10-29] MEDS: Sertraline HCL 25 MG TABLET PO (15:18)
[2022-10-29] MEDS: oxyCODONE HCl Immed Release 5 MG TABLET PO ×2 (15:18→20:13)
--- NOTE | 2022-10-29 15:38 | MHC.SL.SWA ---
Risk of Aspiration Due to: Medically Fragile Poor PO Intake Weak Cough Dysphasia Diet Status: No change Liquid Consistency and Strategies for Safe Swallow: Liquid Intake Recommendation: Thin Liquid Intake Strategies: Small Sips Solid Food Consistency: Dietary Recommendations: Pureed (NDD1) Additional Modifications to Solid Foods: Oral Medication Intake: Crushed with Puree Please contact the pharmacy regarding appropriate crushable or liquid drug formulations that are available whenever modified delivery is recommended. Compensatory Strategies and Precautions to be Taken for Safe Swallow: Sitting Upright (90 deg) Liquids from Straw Small Bites and Sips Alternate Liquids/Solids Rate of Ingestion Change Supervision While Eating and Drinking for Safe Swallow: Total Assistance (1:1) Foods to Avoid: Hard to chew foods, and mixed consistencies (i.e., soups, cereal w/ milk, fruit cups, etc.) Swallowing Recommended Treatments: Compens. Strategy Educat. Recommendation for Speech: Inpatient Speech Therapy Pt's present at bedside. Pt currently on NC. Per RN and ANALYSIS TESTER, pt continues to refuse puree solids for meals and only accepts liquids including Ensure. Pt and reports that prior to hospitalization she wasn't a big eater. Pt reports sometimes I would drink and it would come back up and sometimes I would eat and it got stuck. Pt agreeable to mention of magic cup. Pt requested sherbert then opted to rest rather than taking PO during ACCOUNTING ANALYST visit. Pts reported symptoms suspicious for reflux; more so LPR. Per chart review, no mention of reflux, however pt reports hx of reflux & taking reflux meds that sometimes don't work . Recommend pt continue with PUREE solids and THIN liquids. Recommend consultation with GI and ENT d/t reported s/s of reflux and upset stomach w/ PO. Pt may benefit from MBSS (inpatient vs. outpatient) d/t reported globus sensation. Frame Stripper And Crusher Clinican/Clinical Fellow: No Supervisory Statement: I have reviewed and agree with the student/clinical fellow's documentation: N/A Speech Language Pathologist: Salome Cardenas M.A., ACCOUNTING ANALYST
[2022-10-29 16:42] LABS: Glucose, Whole Blood 208 mg/dL (60-115)
[2022-10-29] MEDS: Apixaban 5 MG TABLET PO (20:11)
[2022-10-29 20:42] LABS: Glucose, Whole Blood 153 mg/dL (60-115)
[2022-10-29] MEDS: ondansetron HCL 4 MG/2 ML VIAL IVPUSH (22:30)
[2022-10-30] MEDS: vancomycin HCL 125 MG CAPSULE 250 MG PO ×4 (00:34→18:10)
[2022-10-30] MEDS: oxyCODONE HCl Immed Release 5 MG TABLET PO ×5 (00:34→22:31)
[2022-10-30] MEDS: LORazepam 2 MG/ML VIAL 0.25 MG IVPUSH ×2 (03:43→15:48)
[2022-10-30 03:50] VITALS: BP 172/73; PULSE 58; RESP 18; TEMP 36.6; O2SAT 97
[2022-10-30] MEDS: Levothyroxine Sodium 50 MCG TABLET PO (04:47)
[2022-10-30] MEDS: Sucralfate Oral Suspension 1 GM/10 ML ORAL.SUSP PO ×4 (06:34→21:36)
[2022-10-30] MEDS: Omeprazole 20 MG CAPSULE.DR PO (06:34)
[2022-10-30 07:12] LABS: Anion Gap 13 (12-20); Blood Urea Nitrogen 47 mg/dL (9-16); Calcium 8.6 mg/dL (8.4-10.2); Carbon Dioxide 30 mmol/L (22-29); Chloride 105 mmol/L (96-108); Creatinine Clr Calc Pharmacy 30.9; Estimated Glomerular Filt Rate 23; Glucose Random 174 mg/dL (60-115); Magnesium 1.8 mg/dL (1.6-2.6); Potassium 3.3 mmol/L (3.3-5.1); Sodium 145 mmol/L (135-145)
[2022-10-30 08:00] VITALS: BP 166/71; PULSE 57; RESP 18; TEMP 36.8; O2SAT 98
[2022-10-30 08:07] LABS: Glucose, Whole Blood 189 mg/dL (60-115)
[2022-10-30] MEDS: Insulin Lispro 100 UNIT/ML 3 ML VIAL SUBCUT ×4 (08:29→21:36)
[2022-10-30] MEDS: 0.9 % Sodium Chloride Flush 3 ML SYRINGE IVFLUSH ×3 (08:31→15:48)
[2022-10-30] MEDS: ondansetron HCL 4 MG/2 ML VIAL IVPUSH (08:34)
[2022-10-30] MEDS: Apixaban 5 MG TABLET PO ×2 (09:18→21:36)
[2022-10-30] MEDS: Amiodarone HCL 200 MG TABLET 400 MG PO ×2 (09:18→21:38)
[2022-10-30] MEDS: Isosorbide Mononitrate 60 MG TAB.ER.24H PO (09:18)
[2022-10-30] MEDS: Acetaminophen 325 MG TABLET 650 MG PO ×2 (09:18→15:48)
[2022-10-30] MEDS: Sertraline HCL 25 MG TABLET PO (09:18)
[2022-10-30] MEDS: amLODIPine Besylate 5 MG TABLET PO (09:18)
[2022-10-30 10:56] LABS: Hematocrit 27.1 % (37.0-47.0); Hemoglobin 8.8 g/dl (12.0-16.0); Mean Corpuscular HGB Conc 32.5 g/dl (31.0-35.0); Mean Corpuscular Volume 89.4 fL (80.0-98.0); Mean Platelet Volume 11.1 fL (9.4-12.3); NRBC Pct Auto 0.4 /100WBC (0.0-0.2); Platelet Count 196 X10*3/uL (160-400); Red Blood Count 3.03 X10*6/uL (4.20-5.50); Red Cell Distribution Width 14.4 % (11.0-16.0); White Blood Count 7.4 X10*3/uL (4.8-10.8)
--- NOTE | 2022-10-30 11:08 | PM.PNNEP ---
Subjective Subjective Date of Service: 10/30/22 Interval history: Events noted Still has diarrhea Physical Exam Vital Signs: Vital Signs: Last Vital Signs Temp 98.3 F 10/30/22 08:00 Pulse 57 10/30/22 08:00 Resp 18 10/30/22 08:00 BP 166/71 H 10/30/22 08:00 Pulse Ox 98 10/30/22 08:00 O2 Del Method Nasal Cannula 10/30/22 08:00 O2 Flow Rate 2 10/30/22 08:00 FiO2 40 10/23/22 23:41 Oxygen Flow Rate 4 10/17/22 08:24 BMI result Body Mass Index 0.1 Const: General: no acute distress Orientation/consciousness: patient oriented x3 Eyes: EOM: EOMs intact bilaterally Neck: Neck: Yes supple Resp: Auscultation: diminished lung sounds Cardio: Rate: regular rate GI: Palpation (GI): Soft to palpation Skin: General skin exam: no rashes or lesions noted Neuro: General: patient oriented x3 and moves all extremities Objective Data Labs 10/30/22 10:48 10/30/22 06:16 Labs: Laboratory Results - last 24 hr 10/29/22 10/29/22 10/29/22 11:34 16:39 20:32 WBC RBC Hgb Hct MCV MCH MCHC RDW Plt Count MPV Absolute Nucleated RBC Nucleated RBC % (auto) Sodium Potassium Chloride Carbon Dioxide Anion Gap BUN Creatinine Estim Creat Clear Calc Estimated GFR POC Glucose 221 H 208 H 153 H Random Glucose Calcium Magnesium 10/30/22 10/30/22 10/30/22 06:16 06:16 07:44 WBC RBC Hgb Hct MCV MCH MCHC RDW Plt Count MPV Absolute Nucleated RBC Nucleated RBC % (auto) Sodium Cancelled 145 Potassium Cancelled 3.3 Chloride Cancelled 105 Carbon Dioxide Cancelled 30 H Anion Gap Cancelled 13 BUN Cancelled 47 H Creatinine Cancelled 2.08 H Estim Creat Clear Calc Cancelled 30.9 Estimated GFR Cancelled 23 POC Glucose 189 H Random Glucose Cancelled 174 H Calcium Cancelled 8.6 Magnesium 1.8 10/30/22 10:48 WBC 7.4 RBC 3.03 L Hgb 8.8 L Hct 27.1 L MCV 89.4 MCH 29.0 MCHC 32.5 RDW 14.4 Plt Count 196 MPV 11.1 Absolute Nucleated RBC 0.030 H Nucleated RBC % (auto) 0.4 H Sodium Potassium Chloride Carbon Dioxide Anion Gap BUN Creatinine Estim Creat Clear Calc Estimated GFR POC Glucose Random Glucose Calcium Magnesium Microbiology Microbiology Results: Microbiology 10/17/22 08:57 Blood - Venous Blood Culture - Final No growth after 5 days. 10/17/22 08:45 Blood - Venous Blood Culture - Final No growth after 5 days. Procedures Date of Service Date of Service: 10/30/22 Assessment & Plan Assessment and plan (1) Acute kidney injury superimposed on CKD: Status: Acute Assessment and Plan: Has CKD 3b at baseline; Currently KEILA due to CRS/PNA Hold diuretics Creatinine continues to decrease after stopping torsemide No ACEI/ARB/NSAID's for now No reason to suspect AIN/GN/Obstructive uropathy [id number]. Replace as needed. Anemia Can restart diuretics after diarrhea resolves Continue rest of current supportive care for now; Time Spent With Patient Time: Total time managing care of this patient today ____ minutes. Progress Note: Quality Stroke Does the patient have a stroke diagnosis?: No
[2022-10-30 11:42] LABS: Glucose, Whole Blood 208 mg/dL (60-115)
[2022-10-30 11:47] VITALS: BP 136/60; PULSE 55; RESP 18; TEMP 36.3; O2SAT 92
[2022-10-30] MEDS: Loperamide HCl 2 MG CAPSULE PO ×2 (12:23→18:14)
--- NOTE | 2022-10-30 15:02 | HO.PM.IMPN ---
Subjective Subjective Date of Service: 10/30/22 Interval History: seen and examined this morning follow up for respiratory failure, pneumonia, chf, diarrhea feeling tired reporting intermittent globus sensation no sob, cough; still with some diarrhea Review of Systems Review of Systems: Yes all other systems are reviewed and are negative Constitutional Constitutional: Denies chills and Denies fever(s) Cardiovascular Cardiovascular: Denies chest pain, Denies palpitations and Denies dyspnea Respiratory Respiratory: Denies dyspnea Endocrine Endocrine: Denies palpitations Physical Exam Vital Signs: Vital Signs: Last Vital Signs Temp 97.4 F 10/30/22 11:47 Pulse 55 10/30/22 11:47 Resp 18 10/30/22 11:47 BP 136/60 10/30/22 11:47 Pulse Ox 92 10/30/22 11:47 O2 Del Method Nasal Cannula 10/30/22 11:47 O2 Flow Rate 2 10/30/22 11:47 FiO2 40 10/23/22 23:41 Oxygen Flow Rate 4 10/17/22 08:24 BMI result Body Mass Index 0.1 Const: Other: appears tired, but sitting up in bed, awake, alert Orientation/consciousness: patient oriented x3 Resp: Effort & Inspection: normal respiratory effort and able to speak in complete sentences Cardio: Rate: regular rate Heart sounds: S1 normal heart sound present and S2 normal heart sound present GI: Other: rectal tube in place Inspection: No distended Palpation (GI): Soft to palpation and nontender Neuro: General: patient oriented x3 and CN's II-XI intact bilaterally Extrem: General: Yes no pedal edema Objective Data Active Medications Acetaminophen (Acetaminophen 325 Mg Tablet) 650 mg PO Q6H PRN PRN Reason: Pain, Mild (Pain Scale 1-3) Last Admin: 10/30/22 09:18 Dose: 650 mg Documented By: ROCCO Amiodarone HCl (Amiodarone Hcl 200 Mg Tablet) 400 mg PO BID [facility] Stop: 10/31/22 23:59 Last Admin: 10/30/22 09:18 Dose: 400 mg Documented By: ROCCO Amiodarone HCl (Amiodarone Hcl 200 Mg Tablet) 200 mg PO DAILY [facility] Amlodipine Besylate (Amlodipine Besylate 5 Mg Tablet) 5 mg PO DAILY [facility]; Protocol Last Admin: 10/30/22 09:18 Dose: 5 mg Documented By: ROCCO Apixaban (Apixaban 5 Mg Tablet) 5 mg PO BID [facility] Last Admin: 10/30/22 09:18 Dose: 5 mg Documented By: ROCCO Artificial Tears (Artificial Tears 15 Ml Drops) 1 drop EYE-BOTH Q4H PRN PRN Reason: Dry Eyes Docusate Sodium (Docusate Sodium 100 Mg Capsule) 100 mg PO DAILY PRN PRN Reason: Constipation Glucose (Glucose Gel 15 Gm Gel..Gram.) 15 gm PO Q15M PRN; Protocol PRN Reason: per Hypoglycemia Standing Ord. Dextrose (D10) 250 mls @ 750 mls/hr IV Q15M PRN; Protocol PRN Reason: per Hypoglycemia Standing Ord. Insulin Human Lispro (Insulin Lispro 100 Unit/Ml 3 Ml Vial) 0 unit SUBCUT QIDACHS [facility]; Protocol Last Admin: 10/30/22 12:23 Dose: 4 unit Documented By: ROCCO Isosorbide Mononitrate (Isosorbide Mononitrate 60 Mg Tab.Er.24h) 60 mg PO DAILY [facility]; Protocol Last Admin: 10/30/22 09:18 Dose: 60 mg Documented By: ROCCO Levothyroxine Sodium (Levothyroxine Sodium 50 Mcg Tablet) 50 mcg PO DAILY@629 [facility] Last Admin: 10/30/22 04:47 Dose: 50 mcg Documented By: KWAKU Loperamide HCl (Loperamide Hcl 2 Mg Capsule) 2 mg PO Q6H PRN PRN Reason: Diarrhea Last Admin: 10/30/22 12:23 Dose: 2 mg Documented By: ROCCO Lorazepam (Lorazepam 2 Mg/Ml Vial) 0.25 mg IVPUSH Q6H PRN PRN Reason: anxiety Last Admin: 10/30/22 03:43 Dose: 0.25 mg Documented By: KWAKU Omeprazole (Omeprazole 20 Mg Capsule.) 20 mg PO DAILY@0630 [facility] Last Admin: 10/30/22 06:34 Dose: 20 mg Documented By: KWAKU Ondansetron HCl (Ondansetron Hcl 4 Mg/2 Ml Vial) 4 mg IVPUSH Q6H PRN PRN Reason: Nausea and Vomiting Last Admin: 10/30/22 08:34 Dose: 4 mg Documented By: ROCCO Oxycodone HCl (Oxycodone Hcl Immed Release 5 Mg Tablet) 5 mg PO Q4H PRN PRN Reason: Pain, Mild (Pain Scale 1-3) Last Admin: 10/30/22 09:18 Dose: 5 mg Documented By: ROCCO Sertraline HCl (Sertraline Hcl 25 Mg Tablet) 25 mg PO DAILY [facility] Last Admin: 10/30/22 09:18 Dose: 25 mg Documented By: ROCCO Sodium Chloride (0.9 % Sodium Chloride Flush 3 Ml Syringe) 3 ml IVFLUSH QSHIFT [facility] Last Admin: 10/30/22 12:23 Dose: 3 ml Documented By: ROCCO Sucralfate (Sucralfate Oral Suspension 1 Gm/10 Ml Oral.Susp) 1 gm PO QIDACHS [facility] Last Admin: 10/30/22 12:23 Dose: 1 gm Documented By: ROCCO Vancomycin HCl (Vancomycin Hcl 125 Mg Capsule) 250 mg PO Q6H [facility] Stop: 10/31/22 12:59 Last Admin: 10/30/22 12:23 Dose: 250 mg Documented By: ROCCO Labs 10/30/22 10:48 10/30/22 06:16 Labs: Laboratory Results - last 24 hr 10/29/22 10/29/22 10/30/22 16:39 20:32 06:16 MCV MCH MCHC RDW Plt Count MPV Absolute Nucleated RBC Nucleated RBC % (auto) Anion Gap Cancelled Estim Creat Clear Calc Cancelled Estimated GFR Cancelled POC Glucose 208 H 153 H Random Glucose Cancelled Calcium Cancelled Magnesium 10/30/22 10/30/22 10/30/22 06:16 07:44 10:48 MCV 89.4 MCH 29.0 MCHC 32.5 RDW 14.4 Plt Count 196 MPV 11.1 Absolute Nucleated RBC 0.030 H Nucleated RBC % (auto) 0.4 H Anion Gap 13 Estim Creat Clear Calc 30.9 Estimated GFR 23 POC Glucose 189 H Random Glucose 174 H Calcium 8.6 Magnesium 1.8 10/30/22 11:18 MCV MCH MCHC RDW Plt Count MPV Absolute Nucleated RBC Nucleated RBC % (auto) Anion Gap Estim Creat Clear Calc Estimated GFR POC Glucose 208 H Random Glucose Calcium Magnesium Assessment and Plan (1) Acute on chronic diastolic CHF (congestive heart failure): Status: Acute (2) Acute kidney injury superimposed on CKD: Status: Acute Plan This is a 77-year-old female with history of HFpEF, T2DM, HTN, CKD 3/4, chronic back/neck pain secondary to spinal stenosis who presents to the emergency department with complaints of shortness of breath found to have acute respiratory failure secondary to CHF labile mood ativan prn for anxiety seen by psych - started on sertraline dysphagia intermittent globus sensation chronic speech following MBSS pending Bloody stool. Resolved One episode likely from colitis as per GI examination carafate for persistent diarrhea PPI KEILA on CKD 3b. trending down, likely from overdiuresis creatinine still elevated no alejandra/arb or nsaids as per nephro nephrology following diuretics on hold Hypernatremia. resolved likely from overduresis Cdiff gene pos, A&B negative persistent diarrhea Vancomycin oral 10 days (end date 10/31/22) Acute respiratory failure with hypoxia / hypercarbia. resolved secondary bilateral pna, CHF . Resolved s/p Intermittent BiPAP normal ABG down to 2 LNC acute on chronic HFpEF. Resolved echo 10/20/22 normal EF, severe pulm HTN Neg >6L to date. s/p bumex drip increased isosorbide to 60mg daily cardio following on torsemide bid at baseline, on hold for now due to KEILA Colitis, extensive with abd pain. Ischemic vs infectious in light of cdiff GI following normal abd doppler elevated procalcitonin s/p Zosyn seen by general surgery, no surgical intervention required at this time Bilateral pneumonia s/p Zosyn and Doxycycline blood cultures negative paroxysmal atrial fibrillation now in sinus started on amiodarone 400 mg bid for 10 days, then change to 200 mg daily per cardiology note AC with Eliquis hypokalemia replace and follow levels check magnesium HTN home dose of metoprolol and norvasc d/c in ICU was previously on norvasc 10, now on 5 mg, up titrate prn continue imdur T2DM SSI, ADA diet seen by speech rec NDD1 for now hypothyroid continue synthroid chronic pain gabapentin d/c during ICU stay weaned off IV narcotics, prn oxycodone Gerd continue omeprazole Morbid obesity bmi 37.4 weight loss encouraged dvt ppx - Eliquis code status - Full code attending Dr. Prashanth AYALA. Encourage OOB Bed to chair, PT evaluation rec STR patient requires ongoing stay in the hospital for management of close monitoring of respiratory status, ongoing diarrhea and safe disposition Time Spent With Patient Time: Total time managing care of this patient today ____ minutes. Quality Stroke Does the patient have a stroke diagnosis?: No VTE Prior VTE?: No VTE Risk Level:: Medical - moderate - high VTE Device Contraindication: N/A - Device Ordered VTE Drug Contraindication: N/A - Med Ordered
[2022-10-30 15:47] VITALS: BP 144/63; PULSE 60; RESP 15; TEMP 36.1; O2SAT 97
[2022-10-30] MEDS: Magnesium Sulfate/D5W 1 GM/100 ML PIGGYBACK IV (16:02)
[2022-10-30 16:45] LABS: Glucose, Whole Blood 186 mg/dL (60-115)
--- NOTE | 2022-10-30 17:23 | MHC.SL.IMP ---
Date of Plan of Treatment: 10/20/22 Onset of Symptoms/Illness: 10/20/22 Date Treatment Started: 10/20/22 Admitting Diagnosis: Acute on chronic diastolic CHF, acute kidney injury superimposed on CKD Primary Speech & Language Diagnosis: R13.10 Dysphagia Reason for Today's Visit: 18494 Modified Barium Swallow Study Pre-evaluation Dietary Consistencies: Pureed (NDD1) Pre-evaluation Liquid Consistency: Thin Pre-evaluation Medication Administration: Crushed with Puree Medical History: Modified Barium Swallow Study Fluoroscopic Evaluation of Swallowing Function CPT Code 34951 Evaluation Year: 2022 Reason for Study: Pt reports difficulty swallowing. Referring Physician: Elaine CROCKETT Evaluating Clinician: Carmelina Price MA, CCC-RN ADVICE Study Number: 1 Patient Name: Hannah Alexis Status: Inpatient, Stretcher Age: 77 Gender: Female Medical History PMH includes, CKD, DM2, HTN, Spinal stenosis, and Decreased thyroid function. Current (pre-evaluation) Intake/Diet: Route: PO Diet Grade: Puree Liquid Consistencies: Thin Pre-Study Functional Oral Intake Scale (FOIS): 5- Total oral intake of multiple consistencies requiring special preparation Pain: None reported at time of study SUBJECTIVE: Pt reports difficulty swallowing, which started ?a very long time ago.? Pt denies odynophagia, reports that she feels ?things get lodged.? Pt also reports frequently choking on both solids and liquids. Pt stated she cannot drink a lot at one time because ?sooner or later it comes back up.? Oral Motor Exam Mouth Occlusion: Normal Oral-Facial Teeth Characteristics: Edentulous Oral-Facial Puff Cheeks Description: Reduced Strength Tongue Size: Normal Tongue Excursion Description: Normal Tongue Range of Movement Description: Normal Tongue Speed of Movement Description: Normal Tongue Strength of Movement (against opposing pressure): Normal Tongue Movement Characteristics: Normal/Absent Is patient able to manage secretions?: Yes Food and Liquid Trials: Oral Impairment: Lip Closure: 0=No labial escape Oral Impairment: Tongue Control During Bolus Hold: 1=Escape to lateral buccal cavity/floor of mouth (FOM) Oral Impairment: Bolus Preparation/Mastication: Did not test Oral Impairment: Bolus Transport/Lingual Motion: 2=Slowed tongue motion Oral Impairment: Oral Residue: 1=Trace residue lining oral structures Oral Impairment:Initiation of Pharyngeal Swallow: 1=Bolus head in valleculae Pharyngeal Impairment: Soft Palate Elevation: 0=No bolus between soft palate (SP)/pharyngeal wall (PW) Pharyngeal Impairment: Laryngeal Elevation: 1=Partial thyroid cartilage/arytenoids to epiglottic petiole movement Pharyngeal Impairment: Anterior Hyoid Excursion: 1=Partial anterior movement Pharyngeal Impairment: Epiglottic Movement: 0=Complete inversion Pharyngeal Impairment: Laryngeal Vestibular Closure:: 0=Complete: no air/contrast in laryngeal vestibule Pharyngeal Impairment: Pharyngeal Stripping Wave: 0=Present: complete Pharyngeal Impairment: Pharyngeal Contraction: Did not test Pharyngeal Impairment: Pharyngoesophageal Segment Openin=Complete distension and complete duration: no obstruction of flow Pharyngeal Impairment: Tongue Base (TB) Retraction: 2=Narrow column of contrast/air between TB and posterior PW Pharyngeal Impairment: Pharyngeal Residue: 0=Complete pharyngeal clearance Pharyngeal Impairment: Esophageal Clearance Upright Position: Did not test Impressions and Recommendations OBJECTIVE: Time-out: performed at 15:20 Evaluation Start: 15:10; Stop: 15:12 Patient Positioning: Seated 70-90 degrees Viewing Planes: LATERAL ONLY Contrast: MBSImP? Standardized Protocol using commercially prepared, standardized Barium viscosities, including: Varibar? THIN LIQUID (40% w/v, <15 cps) MBSImP ID: [id number] MBSImP Results: Lip closure for intraoral bolus containment resulted in no labial escape. Tongue control during bolus hold allowed bolus escape to the lateral buccal cavity/floor of mouth. Bolus preparation and mastication could not be assessed; solid not given due to logistical reasons or safety concerns unrelated to oral impairment. Bolus transport/lingual motion was with slowed tongue motion. Oral residue was a trace, lining oral structures. Initiation of the pharyngeal swallow occurred when the bolus head was in the valleculae. Soft palate elevation resulted in no bolus between the soft palate and the pharyngeal wall. Laryngeal elevation was decreased, with partial superior movement of the thyroid cartilage/partial approximation of the arytenoids to the epiglottic petiole. Anterior hyoid excursion demonstrated partial anterior movement. Epiglottic movement resulted in complete inversion. Laryngeal vestibular closure was complete, as indicated by no air or contrast within the laryngeal vestibule at the height of the swallow. Pharyngeal stripping wave was present and complete. Pharyngeal contraction could not be determined due to logistical reasons not related to physiologic impairment. Pharyngoesophageal segment opening was completely distended for complete duration with no obstruction of bolus flow. Tongue base retraction allowed a narrow column of contrast or air between the retracted tongue base and the posterior pharyngeal wall. Pharyngeal residue was not present. There was complete pharyngeal clearance. Esophageal clearance in the upright position could not be assessed due to logistical reasons not related to physiologic impairment. Oral Impairment Score: 4 (absence of score, component 3) Pharyngeal Impairment Score: 4 (absence of score, component 13) Esophageal Impairment Score: --- (absence of score, component 17) Laryngeal Penetration and Aspiration: Neither penetration nor aspiration was observed in today's study with Thin, Puree. ASSESSMENT: This exam was conducted by a multidisciplinary team, which included a speech pathologist, radiologist, and geothermal hvac technician. Pt was seated upright at 90 degrees for lateral view only. Pt trialed the following liquid and solid consistencies: teaspoon sips thin liquid barium, straw sips thin liquid barium, pureed solid (applesauce mixed with barium paste). Pt was offered ground consistency chicken salad, but refused, stating the texture was ?too hard.? Pt also refused barium pill tablet, as she gets her pills crushed or ?cut up.? There was good lip closure with no anterior spillage. When instructed to hold the bolus in her mouth, there was escape of trace liquid to the floor of mouth, but none posteriorly. Posterior lingual motion was mildly slowed. There was trace residue on the palate, tongue, and in the floor of mouth, which cleared with subsequent swallow. Pharyngeal swallow trigger was initiated as the bolus head reached the valleculae. There was no nasopharyngeal reflux. Partial laryngeal elevation. Complete laryngeal vestibular closure with no evidence of aspiration or penetration during this exam. There was complete pharyngeal clearance. Liquid Intake Recommendation: Thin Liquid Intake Strategies: Small Sips Dietary Recommendations: Pureed (NDD1) Medication Administration: Crushed with Puree Please contact the pharmacy regarding appropriate crushable or liquid drug formulations that are available whenever modified delivery is recommended. Compensatory Strategies Recommended: Sitting Upright (90 deg), Small Bites and Sips, Rate of Ingestion Change, Avoid Specific Foods (Hard solids d/t edentulous status) Supervision during eating and or drinking: Total Supervision (1:1) Recommended Treatments: Compens. Strategy Educat. Recommendation for Speech Therapy: NA:Typical Evaluation PLAN: Intake Recommendations: Route: PO Diet Grade: Puree Liquid Consistencies: Thin Post-Study Functional Oral Intake Scale (FOIS): 5- Total oral intake of multiple consistencies requiring special preparation No evidence of aspiration or penetration with trials of puree solid and thin liquid (by spoon and straw). Pt demonstrated good oral and pharyngeal clearance as well. Pt refused ground and regular texture trials during this exam, stating she ?could not do it.? Noted pt is edentulous and reportedly does not have dentures. Pt had previously declined more advanced textures beyond puree when evaluated by RN ADVICE at bedside as well. Pt reports she takes pills crushed or ?cut up.? Further ST intervention is not indicated at this time, as pt has been tolerating what appears to be the safest, least restrictive diet consistencies at this time, given her edentulous status and preference for liquids and soft solids. Recommend pt and care team to continue monitoring dysphagia. If there are any changes or further concern, RN ADVICE can be re-consulted, at which point a re-evaluation may be indicated. Pt complains of vomiting or bringing up/expectorating food and liquid, s/s which are more consistent with esophageal dysphagia or G.I. concern. Recommend further workup with G.I. Suggested Referrals: The patient might benefit from a referral to: Gastroenterology Indication for Referral: Further workup Therapy Recommendations: Therapy will be discontinued Clinician - Supplemental, Miscellaneous Communication: It is important to note MBSS objective studies are snapshots in time and Patient function might vary with factors such as time of day or concomitant medical conditions. For this reason, the final treatment plan for this patient should rest with their medical care team. Additional recommendations should be considered with the totality of the Patient in mind. Thank for the opportunity to participate in the care of this patient. If you have any questions about the content of this report, please contact the [facility] at [facility]. Education: Education regarding findings from today's study and plans for therapy were provided to Patient only through Verbal Instruction. Understanding was expressed by the Patient only. [employer]iner Clinician/Clinical Fellow: No Supervisory Statement: N/A Speech Language Pathologist: Carmelina Price M.A., [facility]-RN ADVICE
--- NOTE | 2022-10-30 17:31 | MHC.SLORD ---
Speech Language Pathology Order Status: [employer]RECTION [employer]ER [employer] communicated MBSS results w/ hospitalist via [place] Message.
[2022-10-30 19:39] LABS: Glucose, Whole Blood 209 mg/dL (60-115)
[2022-10-30 20:00] VITALS: BP 150/52; PULSE 54; RESP 15; TEMP 36.3; O2SAT 96
[2022-10-30 23:40] VITALS: BP 142/65; PULSE 57; RESP 20; TEMP 36.2; O2SAT 96
[2022-10-31] MEDS: vancomycin HCL 125 MG CAPSULE 250 MG PO ×2 (02:23→06:43)
[2022-10-31 03:03] VITALS: BP 162/72; PULSE 54; RESP 20; TEMP 36.1; O2SAT 96
[2022-10-31] MEDS: ondansetron HCL 4 MG/2 ML VIAL IVPUSH ×3 (04:12→19:02)
[2022-10-31] MEDS: oxyCODONE HCl Immed Release 5 MG TABLET PO ×3 (04:16→19:37)
[2022-10-31] MEDS: Levothyroxine Sodium 50 MCG TABLET PO (05:59)
[2022-10-31] MEDS: Omeprazole 20 MG CAPSULE.DR PO (06:43)
[2022-10-31 07:33] VITALS: BP 137/73; PULSE 58; RESP 20; TEMP 36.3; O2SAT 97
[2022-10-31 07:33] LABS: Anion Gap 16 (12-20); Blood Urea Nitrogen 41 mg/dL (9-16); Calcium 8.7 mg/dL (8.4-10.2); Carbon Dioxide 28 mmol/L (22-29); Chloride 103 mmol/L (96-108); Creatinine Clr Calc Pharmacy 33.5; Estimated Glomerular Filt Rate 24; Glucose Random 160 mg/dL (60-115); Potassium 3.5 mmol/L (3.3-5.1); Sodium 143 mmol/L (135-145)
[2022-10-31 07:51] LABS: Glucose, Whole Blood 166 mg/dL (60-115)
[2022-10-31] MEDS: Insulin Lispro 100 UNIT/ML 3 ML VIAL SUBCUT ×3 (09:08→22:30)
[2022-10-31] MEDS: amLODIPine Besylate 5 MG TABLET PO (09:09)
[2022-10-31] MEDS: Isosorbide Mononitrate 60 MG TAB.ER.24H PO (09:09)
[2022-10-31] MEDS: Sertraline HCL 25 MG TABLET PO (09:09)
[2022-10-31] MEDS: Sucralfate Oral Suspension 1 GM/10 ML ORAL.SUSP PO ×4 (09:09→22:30)
[2022-10-31] MEDS: Apixaban 5 MG TABLET PO ×2 (09:09→22:29)
[2022-10-31] MEDS: Amiodarone HCL 200 MG TABLET 400 MG PO ×2 (09:09→22:29)
[2022-10-31] MEDS: 0.9 % Sodium Chloride Flush 3 ML SYRINGE IVFLUSH ×3 (09:10→22:31)
[2022-10-31 12:11] LABS: Glucose, Whole Blood 225 mg/dL (60-115)
[2022-10-31] MEDS: Artificial Tears 15 ML DROPS 1 DROP EYE-BOTH (12:22)
[2022-10-31 12:43] VITALS: BP 146/45; PULSE 85; RESP 20; TEMP 37.2; O2SAT 96
--- NOTE | 2022-10-31 12:52 | HO.PM.IMPN ---
Subjective Subjective Date of Service: 10/31/22 Interval History: Seen and examined this morning Follow-up for multiple issues Still with liquid stool Not eating much but states that she is not a big eater at home? had MBSS yesterday and declined any solid food reporting eyelid heaviness, difficulty keeping eyes open. overall feeling better and denies sob, cough. Review of Systems Review of Systems: Yes all other systems are reviewed and are negative Constitutional Constitutional: Denies chills and Denies fever(s) ENT Ears, Nose, Mouth, and Throat: Denies dizziness Cardiovascular Cardiovascular: Denies chest pain, Denies palpitations and Denies dyspnea Respiratory Respiratory: Denies cough and Denies dyspnea Gastrointestinal Gastrointestinal: Reports diarrhea and Denies nausea Neurologic Neurologic: Denies dizziness Endocrine Endocrine: Denies palpitations Physical Exam Vital Signs: Vital Signs: Last Vital Signs Temp 98.9 F 10/31/22 12:43 Pulse 85 10/31/22 12:43 Resp 20 10/31/22 12:43 BP 146/45 H 10/31/22 12:43 Pulse Ox 96 10/31/22 12:43 O2 Del Method Room Air 10/31/22 12:43 O2 Flow Rate 3 10/31/22 07:33 FiO2 40 10/23/22 23:41 Oxygen Flow Rate 4 10/17/22 08:24 BMI result Body Mass Index 0.1 Const: General: comfortable, no acute distress, alert and awake Nutritional Appearance: overweight Orientation/consciousness: patient oriented x3 Eyes: Other: heavy eyelids Resp: Effort & Inspection: normal respiratory effort, able to speak in complete sentences, no respiratory distress and no use of accessory muscles Cardio: Rate: regular rate Heart sounds: S1 normal heart sound present and S2 normal heart sound present GI: Inspection: No distended Palpation (GI): Soft to palpation and nontender Neuro: Other: grossly non-focal General: patient oriented x3 Extrem: Other: Able to move all 4 extremities spontaneously General: Yes no pedal edema Objective Data Active Medications Acetaminophen (Acetaminophen 325 Mg Tablet) 650 mg PO Q6H PRN PRN Reason: Pain, Mild (Pain Scale 1-3) Last Admin: 10/30/22 15:48 Dose: 650 mg Documented By: ROCCO Amiodarone HCl (Amiodarone Hcl 200 Mg Tablet) 400 mg PO BID YADY Stop: 10/31/22 23:59 Last Admin: 10/31/22 09:09 Dose: 400 mg Documented By: BARRY Amiodarone HCl (Amiodarone Hcl 200 Mg Tablet) 200 mg PO DAILY [facility] Amlodipine Besylate (Amlodipine Besylate 5 Mg Tablet) 5 mg PO DAILY [facility]; Protocol Last Admin: 10/31/22 09:09 Dose: 5 mg Documented By: BARRY Apixaban (Apixaban 5 Mg Tablet) 5 mg PO BID [facility] Last Admin: 10/31/22 09:09 Dose: 5 mg Documented By: BARRY Artificial Tears (Artificial Tears 15 Ml Drops) 1 drop EYE-BOTH Q4H PRN PRN Reason: Dry Eyes Last Admin: 10/31/22 12:22 Dose: 1 drop Documented By: BARRY Docusate Sodium (Docusate Sodium 100 Mg Capsule) 100 mg PO DAILY PRN PRN Reason: Constipation Glucose (Glucose Gel 15 Gm Gel..Gram.) 15 gm PO Q15M PRN; Protocol PRN Reason: per Hypoglycemia Standing Ord. Dextrose (D10) 250 mls @ 750 mls/hr IV Q15M PRN; Protocol PRN Reason: per Hypoglycemia Standing Ord. Insulin Human Lispro (Insulin Lispro 100 Unit/Ml 3 Ml Vial) 0 unit SUBCUT QIDACHS [facility]; Protocol Last Admin: 10/31/22 12:22 Dose: 4 unit Documented By: BARRY Isosorbide Mononitrate (Isosorbide Mononitrate 60 Mg Tab.Er.24h) 60 mg PO DAILY [facility]; Protocol Last Admin: 10/31/22 09:09 Dose: 60 mg Documented By: BARRY Levothyroxine Sodium (Levothyroxine Sodium 50 Mcg Tablet) 50 mcg PO DAILY@0630 [facility] Last Admin: 10/31/22 05:59 Dose: 50 mcg Documented By: CHERYL Loperamide HCl (Loperamide Hcl 2 Mg Capsule) 2 mg PO Q6H PRN PRN Reason: Diarrhea Last Admin: 10/30/22 18:14 Dose: 2 mg Documented By: WADE-RIVLA Lorazepam (Lorazepam 2 Mg/Ml Vial) 0.25 mg IVPUSH Q8H PRN PRN Reason: anxiety Last Admin: 10/30/22 15:48 Dose: 0.25 mg Documented By: ROCCO Omeprazole (Omeprazole 20 Mg Capsule.Dr) 20 mg PO DAILY@0630 [facility] Last Admin: 10/31/22 06:43 Dose: 20 mg Documented By: CHERYL Ondansetron HCl (Ondansetron Hcl 4 Mg/2 Ml Vial) 4 mg IVPUSH Q6H PRN PRN Reason: Nausea and Vomiting Last Admin: 10/31/22 04:12 Dose: 4 mg Documented By: CHERYL Oxycodone HCl (Oxycodone Hcl Immed Release 5 Mg Tablet) 5 mg PO Q4H PRN PRN Reason: Pain, Mild (Pain Scale 1-3) Last Admin: 10/31/22 09:37 Dose: 5 mg Documented By: BARRY Sertraline HCl (Sertraline Hcl 25 Mg Tablet) 25 mg PO DAILY [facility] Last Admin: 10/31/22 09:09 Dose: 25 mg Documented By: BARRY Sodium Chloride (0.9 % Sodium Chloride Flush 3 Ml Syringe) [facility] Last Admin: 10/31/22 09:10 Dose: 3 ml Documented By: BARRY Sucralfate (Sucralfate Oral Suspension 1 Gm/10 Ml Oral.Susp) 1 gm PO QIDACHS [facility] Last Admin: 10/31/22 12:22 Dose: 1 gm Documented By: BARRY Vancomycin HCl (Vancomycin Hcl 125 Mg Capsule) 250 mg PO Q6H [facility] Stop: 10/31/22 12:59 Last Admin: 10/31/22 06:43 Dose: 250 mg Documented By: CHERYL Labs 10/30/22 10:48 10/31/22 06:44 Labs: Laboratory Results - last 24 hr 10/30/22 10/30/22 10/31/22 16:08 19:21 06:44 Anion Gap 16 Estim Creat Clear Calc 33.5 Estimated GFR 24 POC Glucose 186 H 209 H Random Glucose 160 H Calcium 8.7 10/31/22 10/31/22 07:36 12:08 Anion Gap Estim Creat Clear Calc Estimated GFR POC Glucose 166 H 225 H Random Glucose Calcium Assessment and Plan (1) Acute on chronic diastolic CHF (congestive heart failure): Status: Acute (2) Acute kidney injury superimposed on CKD: Status: Acute Plan This is a 77-year-old female with history of HFpEF, T2DM, HTN, CKD 3/4, chronic back/neck pain secondary to spinal stenosis who presents to the emergency department with complaints of shortness of breath found to have acute respiratory failure secondary to CHF labile mood ativan prn for anxiety seen by psych - started on sertraline dysphagia intermittent globus sensation - chronic speech following, patient declines to eat anything more then pureed texture MBSS done 10/30 without signs of aspiration or penetration Bloody stool. Resolved One episode likely from colitis as per GI examination carafate for persistent diarrhea PPI KEILA on CKD 3b. trending down, likely from overdiuresis creatinine improving no alejandra/arb or nsaids as per nephro nephrology following diuretics on hold until diarrhea improved Hypernatremia. resolved likely from overduresis Cdiff gene pos, A&B negative persistent diarrhea Vancomycin oral 10 days (end date 10/31/22) Acute respiratory failure with hypoxia / hypercarbia. resolved secondary bilateral pna, CHF . Resolved s/p Intermittent BiPAP normal ABG wean oxygen as tolerated acute on chronic HFpEF. Resolved echo 10/20/22 normal EF, severe pulm HTN s/p bumex drip increased isosorbide to 60mg daily cardio following on torsemide bid at baseline, on hold for now due to KEILA Colitis. Ischemic vs infectious in light of cdiff GI following normal abd doppler elevated procalcitonin s/p treatment with Zosyn seen by general surgery, no surgical intervention required Bilateral pneumonia s/p Zosyn and Doxycycline blood cultures negative paroxysmal atrial fibrillation now in sinus started on amiodarone 400 mg bid for 10 days, then change to 200 mg daily per cardiology note AC with Eliquis hypokalemia resolved HTN home dose of metoprolol and norvasc d/c in ICU was previously on norvasc 10, now on 5 mg, up titrate prn continue imdur T2DM SSI, ADA diet seen by speech rec NDD1 for now hypothyroid continue synthroid chronic pain gabapentin d/c during ICU stay weaned off IV narcotics, prn oxycodone (on oxy at baseline) Gerd continue omeprazole Morbid obesity bmi 37.4 weight loss encouraged dvt ppx - Eliquis code status - Full code attending Dr. Prashanth AYAAL. Encourage OOB Bed to chair, PT evaluation rec STR patient requires ongoing stay in the hospital for management of close monitoring of respiratory status, ongoing diarrhea and safe disposition Time Spent With Patient Time: Total time managing care of this patient today ____ minutes. Quality Stroke Does the patient have a stroke diagnosis?: No VTE Prior VTE?: No VTE Risk Level:: Medical - moderate - high VTE Device Contraindication: N/A - Device Ordered VTE Drug Contraindication: N/A - Med Ordered
--- NOTE | 2022-10-31 13:03 | P.CNNE_ITS ---
History of Present Illness Data of Consult Service Date: 10/31/22 Primary Care Provider: [place] Raymundo MD HPI Reason for consult: Droopy eyelids 77 years old woman with hypertension renal injury and depression, also atrial fibrillation, I was asked to see for droopy eyelids. She has been in the hospital for a while but this was noted recently. There was no change in her speech. She has been in the bed with generalized fatigue. Review of Systems Review of Systems: No recent surgery PMFSH Past Medical History Medical History (Updated 10/29/22 @ 15:53 by Mp Minor) CKD (chronic kidney disease), stage IV Diabetes Diastolic CHF HTN (hypertension) Spinal stenosis Thyroid activity decreased Family History Family History (Updated 10/17/22 @ 16:13 by BON Barber) Other Diabetes Social History Social History Household Members: Spouse Housing: House Do you presently have visiting nurse or other home services: No Alcohol intake: never Patient Tobacco Use Status: Never used Tobacco Smoked in Last 30 Days: No Second Hand Smoke Exposure: No Use of substances other than those prescribed or required for medical reasons: No Currently Displaying Signs/Symptoms of Drug Intoxication Withdrawal: No Have you been hit, kicked, punched, or otherwise hurt by someone within the past year? If so, by whom?: No Do you feel safe in your current relationship?: Yes Is there a partner from a previous relationship who is making you feel unsafe now?: No Are you made to feel afraid or neglected: No Advance Directives: Yes Advance Directives on File: Yes Advance Directives Date on File: 08/22/20 Do you have thoughts of harming others: None Do you have a plan to hurt others: No Plan Recently lost weight without trying: No Eating poorly because of decreased appetite: No Nutrition Risks: No Nutritional Risk Patient : No : No Poor oral hygiene: No service: No Current occupational status: retired Meds Allergies Allergy/AdvReac Type Severity Reaction Status Date / Time levofloxacin [From LEVAQUIN] AdvReac Mild flushed Verified 10/11/22 11:12 Active Medications: Current Medications Acetaminophen (Acetaminophen 325 Mg Tablet) 650 mg PO Q6H PRN PRN Reason: Pain, Mild (Pain Scale 1-3) Last Admin: 10/30/22 15:48 Dose: 650 mg Amiodarone HCl (Amiodarone Hcl 200 Mg Tablet) 400 mg PO BID [facility] Stop: 10/31/22 23:59 Last Admin: 10/31/22 09:09 Dose: 400 mg Amiodarone HCl (Amiodarone Hcl 200 Mg Tablet) 200 mg PO DAILY [facility] Amlodipine Besylate (Amlodipine Besylate 5 Mg Tablet) 5 mg PO DAILY [facility]; Protocol Last Admin: 10/31/22 09:09 Dose: 5 mg Apixaban (Apixaban 5 Mg Tablet) 5 mg PO BID [facility] Last Admin: 10/31/22 09:09 Dose: 5 mg Artificial Tears (Artificial Tears 15 Ml Drops) 1 drop EYE-BOTH Q4H PRN PRN Reason: Dry Eyes Last Admin: 10/31/22 12:22 Dose: 1 drop Docusate Sodium (Docusate Sodium 100 Mg Capsule) 100 mg PO DAILY PRN PRN Reason: Constipation Glucose (Glucose Gel 15 Gm Gel..Gram.) 15 gm PO Q15M PRN; Protocol PRN Reason: per Hypoglycemia Standing Ord. Dextrose (D10) 250 mls @ 750 mls/hr IV Q15M PRN; Protocol PRN Reason: per Hypoglycemia Standing Ord. Insulin Human Lispro (Insulin Lispro 100 Unit/Ml 3 Ml Vial) 0 unit SUBCUT QIDACHS [facility]; Protocol Last Admin: 10/31/22 12:22 Dose: 4 unit Isosorbide Mononitrate (Isosorbide Mononitrate 60 Mg Tab.Er.24h) 60 mg PO DAILY [facility]; Protocol Last Admin: 10/31/22 09:09 Dose: 60 mg Levothyroxine Sodium (Levothyroxine Sodium 50 Mcg Tablet) 50 mcg PO DAILY@0630 [facility] Last Admin: 10/31/22 05:59 Dose: 50 mcg Loperamide HCl (Loperamide Hcl 2 Mg Capsule) 2 mg PO Q6H PRN PRN Reason: Diarrhea Last Admin: 10/30/22 18:14 Dose: 2 mg Lorazepam (Lorazepam 2 Mg/Ml Vial) 0.25 mg IVPUSH Q8H PRN PRN Reason: anxiety Last Admin: 10/30/22 15:48 Dose: 0.25 mg Omeprazole (Omeprazole 20 Mg Capsule.Dr) 20 mg PO DAILY@0630 [facility] Last Admin: 10/31/22 06:43 Dose: 20 mg Ondansetron HCl (Ondansetron Hcl 4 Mg/2 Ml Vial) 4 mg IVPUSH Q6H PRN PRN Reason: Nausea and Vomiting Last Admin: 10/31/22 12:57 Dose: 4 mg Oxycodone HCl (Oxycodone Hcl Immed Release 5 Mg Tablet) 5 mg PO Q4H PRN PRN Reason: Pain, Mild (Pain Scale 1-3) Last Admin: 10/31/22 09:37 Dose: 5 mg Sertraline HCl (Sertraline Hcl 25 Mg Tablet) 25 mg PO DAILY [facility] Last Admin: 10/31/22 09:09 Dose: 25 mg Sodium Chloride (0.9 % Sodium Chloride Flush 3 Ml Syringe) 3 ml IVFLUSH QSHIFT [facility] Last Admin: 10/31/22 09:10 Dose: 3 ml Sucralfate (Sucralfate Oral Suspension 1 Gm/10 Ml Oral.Susp) 1 gm PO QIDACHS [facility] Last Admin: 10/31/22 12:22 Dose: 1 gm Home Medications Medication Instructions Recorded Confirmed Last Taken Type amlodipine 10 mg tablet 10 mg PO DAILY 10/11/22 10/17/22 Unknown History gabapentin 400 mg capsule 400 mg PO TID 10/11/22 10/17/22 Unknown History glimepiride 4 mg tablet 4 mg PO DAILY 10/11/22 10/17/22 Unknown History levothyroxine 50 mcg tablet 50 mcg PO DAILY 10/11/22 10/17/22 Unknown History metoprolol succinate 25 mg 25 mg PO DAILY 10/11/22 10/17/22 Unknown History tablet,extended release 24 hr oxycodone 10 mg tablet 10 mg PO QID PRN Pain (Scale Score 10/11/22 10/17/22 Unknown History 4-6) pioglitazone 30 mg tablet 30 mg PO DAILY 10/11/22 10/17/22 Unknown History torsemide 20 mg tablet 40 mg PO BID 10/11/22 10/17/22 Unknown History diphenhydramine HCl 25 mg capsule 25 mg DAILY PRN Allergic Symptoms 10/17/22 Unknown History (Benadryl) prednisone 10 mg tablet See Taper PO DAILY 10/17/22 10/17/22 Unknown History Physical Exam Vital Signs: Vital Signs: Last Vital Signs Temp 98.9 F 10/31/22 12:43 Pulse 85 10/31/22 12:43 Resp 20 10/31/22 12:43 BP 146/45 H 10/31/22 12:43 Pulse Ox 96 10/31/22 12:43 O2 Del Method Room Air 10/31/22 12:43 O2 Flow Rate 3 10/31/22 07:33 FiO2 40 10/23/22 23:41 Oxygen Flow Rate 4 10/17/22 08:24 BMI result Body Mass Index 0.1 Neuro: Other: She is alert and awake with normal spontaneity of speech fluency comprehension and irritable affect. When I arrived in the room the light was off. I turned the light on and she put her hands in front of her eyes and under her hand I could see that her eyes were open. When I asked her what is wrong with the your eyes, she took her hand away and her eyes were almost closed. When asked to open her eye she said that she could not. Eyes were slightly parted. Face otherwise was symmetrical. Speech was normal. Deep tendon reflexes are absent. Results Labs 10/30/22 10:48 10/31/22 06:44 Labs: BMP 10/31/22 06:44 Sodium 143 Potassium 3.5 Chloride 103 Carbon Dioxide 28 BUN 41 H Creatinine 2.01 H Calcium 8.7 Microbiology Microbiology Results: Microbiology 10/17/22 08:57 Blood - Venous Blood Culture - Final No growth after 5 days. 10/17/22 08:45 Blood - Venous Blood Culture - Final No growth after 5 days. Assessment and Plan (1) Depressive disorder: Status: Acute 77 years old woman I was asked to see for droopy eyelids. To my examination it seems more like conversion disorder than a neuromuscular disorder. In any case, [place]: Receptor binding, blocking, and modulating titers can be obtained to rule out myasthenia gravis. Time Spent With Patient Time: Total time managing care of this patient today ____ minutes. Procedures Date of Service Date of Service: 10/31/22
[2022-10-31] MEDS: LORazepam 2 MG/ML VIAL 0.25 MG IVPUSH (15:02)
--- NOTE | 2022-10-31 15:16 | MHC.CM.PN ---
[facility] OFFERING BED AND WILL GO FOR AUTH ONCE PT WORKS W/PT, PT DECLINED AGAIN TODAY AND CM WILL CONTACT P.T. TOMORROW TO REQUEST THEY SEE PT, CM WILL CONT TO FOLLOW.
[2022-10-31 15:32] VITALS: BP 148/60; PULSE 56; RESP 14; TEMP 36; O2SAT 96
[2022-10-31 15:40] LABS: Glucose, Whole Blood 169 mg/dL (60-115)
[2022-10-31 19:35] VITALS: BP 168/68; PULSE 60; RESP 16; TEMP 36; O2SAT 94
[2022-10-31 20:24] LABS: Glucose, Whole Blood 237 mg/dL (60-115)
[2022-11-01] VITALS (8 sets, daily range): BP systolic 128–170; BP diastolic 54–70; PULSE 55–62; RESP 16–20; TEMP 36.1–36.9; O2SAT 91–97
[2022-11-01] MEDS: ondansetron HCL 4 MG/2 ML VIAL IVPUSH ×4 (01:03→20:19)
[2022-11-01] MEDS: oxyCODONE HCl Immed Release 5 MG TABLET PO ×4 (03:43→17:21)
[2022-11-01] MEDS: Levothyroxine Sodium 50 MCG TABLET PO (05:04)
[2022-11-01] MEDS: Omeprazole 20 MG CAPSULE.DR PO (05:04)
[2022-11-01] MEDS: LORazepam 2 MG/ML VIAL 0.25 MG IVPUSH ×2 (06:22→20:54)
[2022-11-01 07:40] LABS: Glucose, Whole Blood 172 mg/dL (60-115)
[2022-11-01 08:21] LABS: Hemoglobin 9.6 g/dl (12.0-16.0); Mean Corpuscular Hemoglobin 29.3 pg (27.0-33.0); Mean Corpuscular Volume 91.5 fL (80.0-98.0); Mean Platelet Volume 11.6 fL (9.4-12.3); Platelet Count 228 X10*3/uL (160-400); Red Blood Count 3.28 X10*6/uL (4.20-5.50); Red Cell Distribution Width 14.5 % (11.0-16.0); White Blood Count 6.6 X10*3/uL (4.8-10.8)
[2022-11-01 08:33] LABS: Anion Gap 13 (12-20); Blood Urea Nitrogen 33 mg/dL (9-16); Calcium 8.6 mg/dL (8.4-10.2); Carbon Dioxide 29 mmol/L (22-29); Chloride 104 mmol/L (96-108); Creatinine Clr Calc Pharmacy 36.1; Estimated Glomerular Filt Rate 27; Glucose Random 168 mg/dL (60-115); Potassium 3.4 mmol/L (3.3-5.1); Sodium 143 mmol/L (135-145)
[2022-11-01] MEDS: Artificial Tears 15 ML DROPS 1 DROP EYE-BOTH ×2 (08:34→12:59)
[2022-11-01] MEDS: Sucralfate Oral Suspension 1 GM/10 ML ORAL.SUSP PO ×3 (08:34→20:55)
[2022-11-01] MEDS: Insulin Lispro 100 UNIT/ML 3 ML VIAL SUBCUT ×3 (08:34→20:54)
[2022-11-01] MEDS: Isosorbide Mononitrate 60 MG TAB.ER.24H PO (08:35)
[2022-11-01] MEDS: Apixaban 5 MG TABLET PO ×2 (08:35→20:55)
[2022-11-01] MEDS: Loperamide HCl 2 MG CAPSULE PO (08:35)
[2022-11-01] MEDS: Sertraline HCL 25 MG TABLET PO (08:35)
[2022-11-01] MEDS: amLODIPine Besylate 5 MG TABLET PO (08:35)
[2022-11-01] MEDS: Amiodarone HCL 200 MG TABLET PO (08:36)
[2022-11-01] MEDS: 0.9 % Sodium Chloride Flush 3 ML SYRINGE IVFLUSH ×3 (08:39→20:55)
[2022-11-01 11:17] LABS: Glucose, Whole Blood 245 mg/dL (60-115)
--- NOTE | 2022-11-01 12:03 | P.PNIM_ITS ---
Subjective Subjective Date of Service: 11/01/22 Interval History: Seen and examined this morning Follow-up for multiple issues Overall doing much better Still not eating much, still with some diarrhea Review of Systems Review of Systems: Yes all other systems are reviewed and are negative Constitutional Constitutional: Denies chills and Denies fever(s) ENT Ears, Nose, Mouth, and Throat: Denies dizziness Cardiovascular Cardiovascular: Denies chest pain, Denies palpitations and Denies dyspnea Respiratory Respiratory: Denies cough and Denies dyspnea Gastrointestinal Gastrointestinal: Denies abdominal pain Neurologic Neurologic: Denies dizziness Endocrine Endocrine: Denies palpitations Physical Exam Vital Signs: Vital Signs: Last Vital Signs Temp 97.7 F 11/01/22 11:50 Pulse 55 11/01/22 11:50 Resp 16 11/01/22 11:50 BP 148/68 H 11/01/22 11:50 Pulse Ox 93 11/01/22 11:50 O2 Del Method Nasal Cannula 11/01/22 11:50 O2 Flow Rate 3 11/01/22 11:50 FiO2 40 10/23/22 23:41 Oxygen Flow Rate 4 10/17/22 08:24 BMI result Body Mass Index 0.1 Const: General: comfortable, no acute distress, alert and awake Nutritional Appearance: overweight Orientation/consciousness: oriented to person, oriented to place and patient oriented x3 Resp: Other: decreased respiratory effort, diminished breath sounds Effort & Inspection: normal respiratory effort, able to speak in complete sentences, no respiratory distress and no use of accessory muscles Cardio: Rate: regular rate Heart sounds: S1 normal heart sound present and S2 normal heart sound present GI: Other: rectal tube in place Inspection: No distended Palpation (GI): Soft to palpation, nontender and no guarding Neuro: Other: grossly non-focal General: oriented to person, oriented to place, patient oriented x3, moves all extremities and CN's II-XI intact bilaterally Extrem: Other: Able to move all 4 extremities spontaneously General: Yes no pedal edema Objective Data Active Medications Acetaminophen (Acetaminophen 325 Mg Tablet) 650 mg PO Q6H PRN PRN Reason: Pain, Mild (Pain Scale 1-3) Last Admin: 10/30/22 15:48 Dose: 650 mg Documented By: ROCCO Amiodarone HCl (Amiodarone Hcl 200 Mg Tablet) 200 mg PO DAILY [facility] Last Admin: 11/01/22 08:36 Dose: 200 mg Documented By: CYN Amlodipine Besylate (Amlodipine Besylate 5 Mg Tablet) 5 mg PO DAILY [facility]; Pro tocol Last Admin: 11/01/22 08:35 Dose: 5 mg Documented By: CYN Apixaban (Apixaban 5 Mg Tablet) 5 mg PO BID [facility] Last Admin: 11/01/22 08:35 Dose: 5 mg Documented By: CYN Artificial Tears (Artificial Tears 15 Ml Drops) 1 drop EYE-BOTH Q4H PRN PRN Reason: Dry Eyes Last Admin: 11/01/22 08:34 Dose: 1 drop Documented By: CYN Docusate Sodium (Docusate Sodium 100 Mg Capsule) 100 mg PO DAILY PRN PRN Reason: Constipation Glucose (Glucose Gel 15 Gm Gel..Gram.) 15 gm PO Q15M PRN; Protocol PRN Reason: per Hypoglycemia Standing Ord. Dextrose (D10) 250 mls @ 750 mls/hr IV Q15M PRN; Protocol PRN Reason: per Hypoglycemia Standing Ord. Insulin Human Lispro (Insulin Lispro 100 Unit/Ml 3 Ml Vial) 0 unit SUBCUT QIDACHS [facility]; Protocol Last Admin: 11/01/22 11:56 Dose: 4 unit Documented By: CYN Isosorbide Mononitrate (Isosorbide Mononitrate 60 Mg Tab.Er.24h) 60 mg PO DAILY [facility]; Protocol Last Admin: 11/01/22 08:35 Dose: 60 mg Documented By: CYN Levothyroxine Sodium (Levothyroxine Sodium 50 Mcg Tablet) 50 mcg PO DAILY@629 [facility] Last Admin: 11/01/22 05:04 Dose: 50 mcg Documented By: KELLI Loperamide HCl (Loperamide Hcl 2 Mg Capsule) 2 mg PO Q6H PRN PRN Reason: Diarrhea Last Admin: 11/01/22 08:35 Dose: 2 mg Documented By: CYN Lorazepam (Lorazepam 2 Mg/Ml Vial) 0.25 mg IVPUSH Q8H PRN PRN Reason: anxiety Last Admin: 11/01/22 06:22 Dose: 0.25 mg Documented By: KELLI Omeprazole (Omeprazole 20 Mg Capsule.) 20 mg PO DAILY@30 [facility] Last Admin: 11/01/22 05:04 Dose: 20 mg Documented By: KELLI Ondansetron HCl (Ondansetron Hcl 4 Mg/2 Ml Vial) 4 mg IVPUSH Q6H PRN PRN Reason: Nausea and Vomiting Last Admin: 11/01/22 08:34 Dose: 4 mg Documented By: CYN Oxycodone HCl (Oxycodone Hcl Immed Release 5 Mg Tablet) 5 mg PO Q4H PRN PRN Reason: Pain, Mild (Pain Scale 1-3) Last Admin: 11/01/22 08:36 Dose: 5 mg Documented By: CYN Sertraline HCl (Sertraline Hcl 25 Mg Tablet) 25 mg PO DAILY [facility] Last Admin: 11/01/22 08:35 Dose: 25 mg Documented By: CYN Sodium Chloride (0.9 % Sodium Chloride Flush 3 Ml Syringe) 3 ml IVFLUSH QSHIFT [facility] Last Admin: 11/01/22 08:39 Dose: 3 ml Documented By: CYN Sucralfate (Sucralfate Oral Suspension 1 Gm/10 Ml Oral.Susp) 1 gm PO QIDACHS [facility] Last Admin: 11/01/22 11:56 Dose: 1 gm Documented By: CYN Labs 11/01/22 07:53 11/01/22 07:53 Labs: Laboratory Results - last 24 hr 10/31/22 10/31/22 10/31/22 12:08 15:35 19:32 MCV MCH MCHC RDW Plt Count MPV Absolute Nucleated RBC Nucleated RBC % (auto) Anion Gap Estim Creat Clear Calc Estimated GFR POC Glucose 225 H 169 H 237 H Random Glucose Calcium 11/01/22 11/01/22 11/01/22 07:08 07:53 07:53 MCV 91.5 MCH 29.3 MCHC 32.0 RDW 14.5 Plt Count 228 MPV 11.6 Absolute Nucleated RBC 0.000 Nucleated RBC % (auto) 0.0 Anion Gap 13 Estim Creat Clear Calc 36.1 Estimated GFR 27 POC Glucose 172 H Random Glucose 168 H Calcium 8.6 11/01/22 11:14 MCV MCH MCHC RDW Plt Count MPV Absolute Nucleated RBC Nucleated RBC % (auto) Anion Gap Estim Creat Clear Calc Estimated GFR POC Glucose 245 H Random Glucose Calcium Assessment and Plan (1) PAF (paroxysmal atrial fibrillation): Status: Acute (2) Diarrhea: Status: Acute Plan This is a 77-year-old female with history of HFpEF, T2DM, HTN, CKD 3/4, chronic back/neck pain secondary to spinal stenosis who presents to the emergency department with complaints of shortness of breath found to have acute respiratory failure secondary to CHF labile mood ativan prn for anxiety seen by psych - started on sertraline dysphagia intermittent globus sensation - chronic speech following, patient declines to eat anything more then pureed texture MBSS done 10/30 without signs of aspiration or penetration droopy eyelids seen by neuro -doesn't not feel that this represents MG Acetylcholine receptor antibodies pending Bloody stool. Resolved One episode likely from colitis as per GI examination carafate for persistent diarrhea PPI KEILA on CKD 3b. trending down, likely from overdiuresis creatinine improving no alejandra/arb or nsaids as per nephro nephrology following diuretics on hold until diarrhea improved Hypernatremia. resolved likely from overduresis Cdiff gene pos, A&B negative persistent diarrhea s/p Vancomycin oral 10 days (end date 10/31/22) Acute respiratory failure with hypoxia / hypercarbia. resolved secondary bilateral pna, CHF . Resolved s/p Intermittent BiPAP normal ABG wean oxygen as tolerated acute on chronic HFpEF. Resolved echo 10/20/22 normal EF, severe pulm HTN s/p bumex drip increased isosorbide to 60mg daily cardio following on torsemide bid at baseline, on hold for now due to KEILA Colitis. Ischemic vs infectious in light of cdiff GI following normal abd doppler elevated procalcitonin s/p treatment with Zosyn seen by general surgery, no surgical intervention required Bilateral pneumonia s/p Zosyn and Doxycycline blood cultures negative paroxysmal atrial fibrillation now in sinus started on amiodarone, finished loading dose, now on 200 mg daily AC with Eliquis hypokalemia resolved HTN home dose of metoprolol and norvasc d/c in ICU was previously on norvasc 10, now on 5 mg, up titrate prn continue imdur T2DM SSI, ADA diet seen by speech rec NDD1 for now hypothyroid continue synthroid chronic pain gabapentin d/c during ICU stay weaned off IV narcotics, prn oxycodone (on oxy at baseline) Gerd continue omeprazole Morbid obesity bmi 37.4 weight loss encouraged dvt ppx - Eliquis code status - Full code attending Dr. Wilder AYALA. Encourage OOB Bed to chair, PT evaluation rec STR - bed search underway patient requires ongoing stay in the hospital for management ongoing diarrhea and safe disposition Time Spent With Patient Time: Total time managing care of this patient today ____ minutes. Quality Stroke Does the patient have a stroke diagnosis?: No VTE Prior VTE?: No VTE Risk Level:: Medical - moderate - high VTE Device Contraindication: N/A - Device Ordered VTE Drug Contraindication: N/A - Med Ordered
--- NOTE | 2022-11-01 14:40 | PM.PNNEP ---
Subjective Subjective Date of Service: 11/01/22 Interval history: Seen and examined this PM Overall doing much better Still not eating much, still with some diarrhea Physical Exam Vital Signs: Vital Signs: Last Vital Signs Temp 97.7 F 11/01/22 11:50 Pulse 55 11/01/22 11:50 Resp 16 11/01/22 11:50 BP 148/68 H 11/01/22 11:50 Pulse Ox 93 11/01/22 11:50 O2 Del Method Nasal Cannula 11/01/22 11:50 O2 Flow Rate 3 11/01/22 11:50 FiO2 40 10/23/22 23:41 Oxygen Flow Rate 4 10/17/22 08:24 BMI result Body Mass Index 0.1 Const: General: comfortable, no acute distress, alert and awake Nutritional Appearance: overweight Orientation/consciousness: oriented to person, oriented to place and patient oriented x3 Resp: Other: decreased respiratory effort, diminished breath sounds Effort & Inspection: normal respiratory effort, able to speak in complete sentences, no respiratory distress and no use of accessory muscles Cardio: Rate: regular rate Heart sounds: S1 normal heart sound present and S2 normal heart sound present GI: Other: rectal tube in place Inspection: No distended Palpation (GI): Soft to palpation, nontender and no guarding Neuro: Other: grossly non-focal General: oriented to person, oriented to place, patient oriented x3, moves all extremities and CN's II-XI intact bilaterally Extrem: Other: Able to move all 4 extremities spontaneously General: Yes no pedal edema Objective Data Labs 11/01/22 07:53 11/01/22 07:53 Labs: Laboratory Results - last 24 hr 10/31/22 10/31/22 11/01/22 15:35 19:32 07:08 WBC RBC Hgb Hct MCV MCH MCHC RDW Plt Count MPV Absolute Nucleated RBC Nucleated RBC % (auto) Sodium Potassium Chloride Carbon Dioxide Anion Gap BUN Creatinine Estim Creat Clear Calc Estimated GFR POC Glucose 169 H 237 H 172 H Random Glucose Calcium 11/01/22 11/01/22 11/01/22 07:53 07:53 11:14 WBC 6.6 RBC 3.28 L Hgb 9.6 L Hct 30.0 L MCV 91.5 MCH 29.3 MCHC 32.0 RDW 14.5 Plt Count 228 MPV 11.6 Absolute Nucleated RBC 0.000 Nucleated RBC % (auto) 0.0 Sodium 143 Potassium 3.4 Chloride 104 Carbon Dioxide 29 Anion Gap 13 BUN 33 H Creatinine 1.80 H Estim Creat Clear Calc 36.1 Estimated GFR 27 POC Glucose 245 H Random Glucose 168 H Calcium 8.6 Microbiology Microbiology Results: Microbiology 10/17/22 08:57 Blood - Venous Blood Culture - Final No growth after 5 days. 10/17/22 08:45 Blood - Venous Blood Culture - Final No growth after 5 days. Procedures Date of Service Date of Service: 11/01/22 Assessment & Plan Assessment and plan (1) Acute kidney injury superimposed on CKD: Status: Acute Assessment and Plan: Has CKD 3b at baseline; Currently KEILA due to CRS/PNA Continue to hold diuretics Creatinine continues to decrease after stopping torsemide- now 1.8 No ACEI/ARB/NSAID's for now No reason to suspect AIN/GN/Obstructive uropathy [id number]. Replace as needed. Anemia Can restart diuretics after diarrhea resolves Continue rest of current supportive care for now; Time Spent With Patient Time: Total time managing care of this patient today ____ minutes. Progress Note: Quality Stroke Does the patient have a stroke diagnosis?: No
[2022-11-01 15:31] LABS: Glucose, Whole Blood 171 mg/dL (60-115)
[2022-11-01 20:43] LABS: Glucose, Whole Blood 243 mg/dL (60-115)
[2022-11-02 04:00] VITALS: BP 138/56; PULSE 71; RESP 18; TEMP 36.1; O2SAT 96
[2022-11-02] MEDS: ondansetron HCL 4 MG/2 ML VIAL IVPUSH ×2 (04:16→12:40)
[2022-11-02] MEDS: Artificial Tears 15 ML DROPS 1 DROP EYE-BOTH ×5 (04:17→21:10)
[2022-11-02] MEDS: Levothyroxine Sodium 50 MCG TABLET PO (05:05)
[2022-11-02] MEDS: Omeprazole 20 MG CAPSULE.DR PO (05:05)
[2022-11-02] MEDS: oxyCODONE HCl Immed Release 5 MG TABLET PO ×5 (05:55→21:08)
[2022-11-02 07:00] LABS: Anion Gap 13 (12-20); Blood Urea Nitrogen 35 mg/dL (9-16); Calcium 8.8 mg/dL (8.4-10.2); Carbon Dioxide 30 mmol/L (22-29); Chloride 101 mmol/L (96-108); Creatinine Clr Calc Pharmacy 33.7; Estimated Glomerular Filt Rate 25; Glucose Random 182 mg/dL (60-115); Potassium 3.6 mmol/L (3.3-5.1); Sodium 140 mmol/L (135-145)
[2022-11-02 07:44] VITALS: BP 161/70; PULSE 62; RESP 20; TEMP 36.5; O2SAT 93
[2022-11-02 08:04] LABS: Glucose, Whole Blood 182 mg/dL (60-115)
[2022-11-02] MEDS: Insulin Lispro 100 UNIT/ML 3 ML VIAL SUBCUT ×4 (08:11→21:08)
[2022-11-02] MEDS: Amiodarone HCL 200 MG TABLET PO (08:12)
[2022-11-02] MEDS: Apixaban 5 MG TABLET PO ×2 (08:12→20:57)
[2022-11-02] MEDS: 0.9 % Sodium Chloride Flush 3 ML SYRINGE IVFLUSH ×3 (08:13→21:11)
[2022-11-02] MEDS: Sucralfate Oral Suspension 1 GM/10 ML ORAL.SUSP PO ×3 (08:13→20:57)
[2022-11-02] MEDS: Sertraline HCL 25 MG TABLET PO (08:13)
[2022-11-02] MEDS: amLODIPine Besylate 5 MG TABLET PO (08:13)
[2022-11-02] MEDS: Isosorbide Mononitrate 60 MG TAB.ER.24H PO (08:13)
[2022-11-02] MEDS: Cholestyramine (With Sugar) 4 GM POWD.PACK 2 GM PO (08:14)
--- NOTE | 2022-11-02 10:47 | P.PNIM_ITS ---
Subjective Subjective Date of Service: 11/02/22 Interval History: seen and examined this morning follow up for chf, pneumonia didn't sleep well overnight, denies sob, cough still with diarrhea no significant abdominal pain Review of Systems Review of Systems: Yes all other systems are reviewed and are negative Constitutional Constitutional: Denies chills and Denies fever(s) Cardiovascular Cardiovascular: Denies chest pain, Denies palpitations and Denies dyspnea Respiratory Respiratory: Denies cough and Denies dyspnea Gastrointestinal Gastrointestinal: Denies abdominal pain Endocrine Endocrine: Denies palpitations Physical Exam Vital Signs: Vital Signs: Last Vital Signs Temp 97.7 F 11/02/22 07:44 Pulse 62 11/02/22 07:44 Resp 20 11/02/22 07:44 BP 161/70 H 11/02/22 07:44 Pulse Ox 93 11/02/22 07:44 O2 Del Method Room Air 11/02/22 07:44 O2 Flow Rate 3 11/01/22 11:50 FiO2 40 10/23/22 23:41 Oxygen Flow Rate 4 10/17/22 08:24 BMI result Body Mass Index 0.1 Const: Other: appears tired, but sitting up in bed, awake, alert General: comfortable, no acute distress, alert and awake Nutritional Appearance: overweight Orientation/consciousness: oriented to person, oriented to place and patient oriented x3 Resp: Effort & Inspection: normal respiratory effort, able to speak in complete sentences, no respiratory distress and no use of accessory muscles Cardio: Rate: regular rate Heart sounds: S1 normal heart sound present and S2 normal heart sound present GI: Other: rectal tube in place Inspection: No distended Palpation (GI): Soft to palpation, nontender and no guarding Skin: Other: some bruising left AC Neuro: Other: grossly non-focal General: oriented to person, oriented to place, patient oriented x3, moves all extremities and CN's II-XI intact bilaterally Objective Data Active Medications Acetaminophen (Acetaminophen 325 Mg Tablet) 650 mg PO Q6H PRN PRN Reason: Pain, Mild (Pain Scale 1-3) Last Admin: 10/30/22 15:48 Dose: 650 mg Documented By: ROCCO Amiodarone HCl (Amiodarone Hcl 200 Mg Tablet) 200 mg PO DAILY [facility] Last Admin: 11/02/22 08:12 Dose: 200 mg Documented By: CYN Amlodipine Besylate (Amlodipine Besylate 5 Mg Tablet) 5 mg PO DAILY [facility]; Protocol Last Admin: 11/02/22 08:13 Dose: 5 mg Documented By: CYN Apixaban (Apixaban 5 Mg Tablet) 5 mg PO BID [facility] Last Admin: 11/02/22 08:12 Dose: 5 mg Documented By: CYN Artificial Tears (Artificial Tears 15 Ml Drops) 1 drop EYE-BOTH Q4H PRN PRN Reason: Dry Eyes Last Admin: 11/02/22 09:29 Dose: 1 drop Documented By: CYN Cholestyramine Resin (Cholestyramine (With Sugar) 4 Gm Powd.Pack) 2 gm PO BIDWM [facility] Last Admin: 11/02/22 08:14 Dose: 2 gm Documented By: CYN Docusate Sodium (Docusate Sodium 100 Mg Capsule) 100 mg PO DAILY PRN PRN Reason: Constipation Glucose (Glucose Gel 15 Gm Gel..Gram.) 15 gm PO Q15M PRN; Protocol PRN Reason: per Hypoglycemia Standing Ord. Dextrose (D10) 250 mls @ 750 mls/hr IV Q15M PRN; Protocol PRN Reason: per Hypoglycemia Standing Ord. Insulin Human Lispro (Insulin Lispro 100 Unit/Ml 3 Ml Vial) 0 unit SUBCUT QIDACHS [facility]; Protocol Last Admin: 11/02/22 08:11 Dose: 2 unit Documented By: CYN Isosorbide Mononitrate (Isosorbide Mononitrate 60 Mg Tab.Er.24h) 60 mg PO DAILY [facility]; Protocol Last Admin: 11/02/22 08:13 Dose: 60 mg Documented By: CYN Levothyroxine Sodium (Levothyroxine Sodium 50 Mcg Tablet) 50 mcg PO DAILY@0630 [facility] Last Admin: 11/02/22 05:05 Dose: 50 mcg Documented By: KELLI Loperamide HCl (Loperamide Hcl 2 Mg Capsule) 2 mg PO Q6H [facility] Last Admin: 11/02/22 09:27 Dose: Not Given Documented By: CYN Non-Admin Reason: gave as PRN see KISHORE Lorazepam (Lorazepam 2 Mg/Ml Vial) 0.25 mg IVPUSH BID PRN PRN Reason: anxiety Last Admin: 11/01/22 20:54 Dose: 0.25 mg Documented By: KELLI Omeprazole (Omeprazole 20 Mg Capsule.Dr) 20 mg PO DAILY@0630 [facility] Last Admin: 11/02/22 05:05 Dose: 20 mg Documented By: KELLI Ondansetron HCl (Ondansetron Hcl 4 Mg/2 Ml Vial) 4 mg IVPUSH Q6H PRN PRN Reason: Nausea and Vomiting Last Admin: 11/02/22 04:16 Dose: 4 mg Documented By: KELLI Oxycodone HCl (Oxycodone Hcl Immed Release 5 Mg Tablet) 5 mg PO Q4H PRN PRN Reason: Pain, Mild (Pain Scale 1-3) Last Admin: 11/02/22 08:12 Dose: 5 mg Documented By: CYN Sertraline HCl (Sertraline Hcl 25 Mg Tablet) 25 mg PO DAILY [facility] Last Admin: 11/02/22 08:13 Dose: 25 mg Documented By: CYN Sodium Chloride (0.9 % Sodium Chloride Flush 3 Ml Syringe) 3 ml IVFLUSH QSHIFT [facility] Last Admin: 11/02/22 08:13 Dose: 3 ml Documented By: CYN Sucralfate (Sucralfate Oral Suspension 1 Gm/10 Ml Oral.Susp) 1 gm PO QIDACHS [facility] Last Admin: 11/02/22 08:13 Dose: 1 gm Documented By: CYN Labs 11/01/22 07:53 11/02/22 05:50 Labs: Laboratory Results - last 24 hr 11/01/22 11/01/22 11/01/22 11:14 15:20 20:40 Anion Gap Estim Creat Clear Calc Estimated GFR POC Glucose 245 H 171 H 243 H Random Glucose Calcium 11/02/22 11/02/22 05:50 07:45 Anion Gap 13 Estim Creat Clear Calc 33.7 Estimated GFR 25 POC Glucose 182 H Random Glucose 182 H Calcium 8.8 Assessment and Plan (1) Diarrhea: Status: Acute Plan This is a 77-year-old female with history of HFpEF, T2DM, HTN, CKD 3/4, chronic back/neck pain secondary to spinal stenosis who presents to the emergency department with complaints of shortness of breath found to have acute respiratory failure secondary to CHF Diarrhea Cdiff gene pos, A&B negative s/p Vancomycin oral 10 days (end date 10/31/22) imodium cholestyramine added remove rectal tube when improved labile mood ativan prn for anxiety seen by psych - started on sertraline dysphagia intermittent globus sensation - chronic speech following, patient declines to eat anything more then pureed texture MBSS done 10/30 without signs of aspiration or penetration droopy eyelids seen by neuro -doesn't not feel that this represents MG Acetylcholine receptor antibodies pending seems to be improving Bloody stool. Resolved One episode likely from colitis as per GI examination carafate for persistent diarrhea PPI KEILA on CKD 3b. trending down, likely from overdiuresis creatinine improving no alejandra/arb or nsaids as per nephro nephrology following diuretics on hold until diarrhea improved Hypernatremia. resolved likely from overduresis Acute respiratory failure with hypoxia / hypercarbia. resolved secondary bilateral pna, CHF . Resolved s/p Intermittent BiPAP normal ABG wean oxygen as tolerated acute on chronic HFpEF. Resolved echo 10/20/22 normal EF, severe pulm HTN s/p bumex drip increased isosorbide to 60mg daily cardio following on torsemide bid at baseline, on hold for now due to KEILA Colitis. s/p treatment with Zosyn seen by general surgery, no surgical intervention required Bilateral pneumonia s/p Zosyn and Doxycycline blood cultures negative paroxysmal atrial fibrillation now in sinus started on amiodarone, finished loading dose, now on 200 mg daily AC with Eliquis hypokalemia resolved HTN home dose of metoprolol and norvasc d/c in ICU was previously on norvasc 10, now on 5 mg continue imdur T2DM SSI, ADA diet seen by speech rec NDD1 for now hypothyroid continue synthroid chronic pain gabapentin d/c during ICU stay weaned off IV narcotics, prn oxycodone (on oxy at baseline) Gerd continue omeprazole Morbid obesity bmi 37.4 weight loss encouraged dvt ppx - Eliquis code status - Full code attending Dr. Lizzette AYALA. Encourage OOB Bed to chair, PT evaluation rec STR - bed search underway patient requires ongoing stay in the hospital for management ongoing diarrhea and safe disposition Time Spent With Patient Time: Total time managing care of this patient today ____ minutes. Quality Stroke Does the patient have a stroke diagnosis?: No VTE Prior VTE?: No VTE Risk Level:: Medical - moderate - high VTE Device Contraindication: N/A - Device Ordered VTE Drug Contraindication: N/A - Med Ordered
[2022-11-02 11:11] VITALS: BP 141/65; PULSE 57; RESP 20; TEMP 36.6; O2SAT 94
[2022-11-02 11:41] LABS: Glucose, Whole Blood 217 mg/dL (60-115)
[2022-11-02 15:46] VITALS: BP 137/65; PULSE 54; RESP 20; TEMP 36.2; O2SAT 95
[2022-11-02 16:25] LABS: Glucose, Whole Blood 161 mg/dL (60-115)
[2022-11-02] MEDS: Loperamide HCl 2 MG CAPSULE PO ×2 (16:54→20:57)
--- NOTE | 2022-11-02 18:00 | P.PNNP_ITS ---
Subjective Subjective Date of Service: 11/02/22 Interval history: seen and examined this morning follow up for chf, pneumonia didn't sleep well overnight, denies sob, cough still with diarrhea no significant abdominal pain Physical Exam 2 Vital Signs: Vital Signs: Last Vital Signs Temp 97.2 F 11/02/22 15:46 Pulse 54 11/02/22 15:46 Resp 20 11/02/22 15:46 BP 137/65 11/02/22 15:46 Pulse Ox 95 11/02/22 15:46 O2 Del Method Room Air 11/02/22 15:46 O2 Flow Rate 3 11/01/22 11:50 FiO2 40 10/23/22 23:41 Oxygen Flow Rate 4 10/17/22 08:24 BMI result Body Mass Index 0.1 Const: Other: appears tired, but sitting up in bed, awake, alert General: comfortable, no acute distress, alert and awake Nutritional Appearance: overweight Orientation/consciousness: oriented to person, oriented to place and patient oriented x3 Resp: Effort & Inspection: normal respiratory effort, able to speak in complete sentences, no respiratory distress and no use of accessory muscles Cardio: Rate: regular rate Heart sounds: S1 normal heart sound present and S2 normal heart sound present GI: Other: rectal tube in place Inspection: No distended Palpation (GI): Soft to palpation, nontender and no guarding Skin: Other: some bruising left AC Neuro: Other: grossly non-focal General: oriented to person, oriented to place, patient oriented x3, moves all extremities and CN's II-XI intact bilaterally Objective Data Labs 11/01/22 07:53 11/02/22 05:50 Labs: Laboratory Results - last 24 hr 11/01/22 11/02/22 11/02/22 20:40 05:50 07:45 Sodium 140 Potassium 3.6 Chloride 101 Carbon Dioxide 30 H Anion Gap 13 BUN 35 H Creatinine 1.93 H Estim Creat Clear Calc 33.7 Estimated GFR 25 POC Glucose 243 H 182 H Random Glucose 182 H Calcium 8.8 11/02/22 11/02/22 11:12 16:02 Sodium Potassium Chloride Carbon Dioxide Anion Gap BUN Creatinine Estim Creat Clear Calc Estimated GFR POC Glucose 217 H 161 H Random Glucose Calcium Microbiology Microbiology Results: Microbiology 10/17/22 08:57 Blood - Venous Blood Culture - Final No growth after 5 days. 10/17/22 08:45 Blood - Venous Blood Culture - Final No growth after 5 days. Procedures Date of Service Date of Service: 11/02/22 Assessment & Plan Assessment and plan (1) Acute kidney injury superimposed on CKD: Status: Acute Assessment and Plan: Has CKD 3b at baseline; Currently KEILA due to CRS/PNA Continue to hold diuretics Creatinine continues to decrease after stopping torsemide- now 1.8 No ACEI/ARB/NSAID's for now No reason to suspect AIN/GN/Obstructive uropathy [id number]. Replace as needed. Anemia Can restart diuretics after diarrhea resolves Continue rest of current supportive care for now; Time Spent With Patient Time: Total time managing care of this patient today ____ minutes. Progress Note: Quality Stroke Does the patient have a stroke diagnosis?: No
[2022-11-02 19:59] VITALS: BP 152/68; PULSE 53; RESP 20; TEMP 36.7; O2SAT 95
[2022-11-02] MEDS: Acetaminophen 325 MG TABLET 650 MG PO (20:57)
[2022-11-02 21:00] LABS: Glucose, Whole Blood 171 mg/dL (60-115)
[2022-11-02 23:31] VITALS: BP 145/67; PULSE 54; RESP 18; TEMP 36.6; O2SAT 91
[2022-11-03] MEDS: ondansetron HCL 4 MG/2 ML VIAL IVPUSH ×2 (03:45→17:03)
[2022-11-03 04:00] VITALS: BP 153/55; PULSE 55; RESP 20; TEMP 36.7; O2SAT 92
[2022-11-03] MEDS: Omeprazole 20 MG CAPSULE.DR PO (05:13)
[2022-11-03] MEDS: Levothyroxine Sodium 50 MCG TABLET PO (05:13)
[2022-11-03 07:27] VITALS: BP 155/69; PULSE 54; RESP 20; TEMP 36.4; O2SAT 94
[2022-11-03 07:57] LABS: Glucose, Whole Blood 197 mg/dL (60-115)
[2022-11-03] MEDS: Amiodarone HCL 200 MG TABLET PO (08:39)
[2022-11-03] MEDS: Artificial Tears 15 ML DROPS 1 DROP EYE-BOTH ×2 (08:39→12:37)
[2022-11-03] MEDS: Apixaban 5 MG TABLET PO ×2 (08:39→21:57)
[2022-11-03] MEDS: Isosorbide Mononitrate 60 MG TAB.ER.24H PO (08:39)
[2022-11-03] MEDS: amLODIPine Besylate 5 MG TABLET PO (08:39)
[2022-11-03] MEDS: Insulin Lispro 100 UNIT/ML 3 ML VIAL SUBCUT ×4 (08:40→21:58)
[2022-11-03] MEDS: 0.9 % Sodium Chloride Flush 3 ML SYRINGE IVFLUSH ×3 (08:40→21:54)
[2022-11-03] MEDS: oxyCODONE HCl Immed Release 5 MG TABLET PO ×2 (08:40→12:36)
[2022-11-03] MEDS: Loperamide HCl 2 MG CAPSULE PO (08:40)
[2022-11-03] MEDS: Sertraline HCL 25 MG TABLET PO (08:40)
[2022-11-03] MEDS: Sucralfate Oral Suspension 1 GM/10 ML ORAL.SUSP PO ×4 (08:40→21:58)
--- NOTE | 2022-11-03 09:57 | HO.PM.IMPN ---
Subjective Subjective Date of Service: 11/03/22 Interval History: seen and examined this morning follow up for chf, pneumonia, diarrhea still with diarrhea no significant abdominal pain Review of Systems Review of Systems: Yes all other systems are reviewed and are negative Constitutional Constitutional: Denies chills and Denies fever(s) Cardiovascular Cardiovascular: Denies chest pain, Denies palpitations and Denies dyspnea Respiratory Respiratory: Denies cough and Denies dyspnea Gastrointestinal Gastrointestinal: Denies abdominal pain Endocrine Endocrine: Denies palpitations Physical Exam Vital Signs: Vital Signs: Last Vital Signs Temp 97.6 F 11/03/22 07:27 Pulse 54 11/03/22 07:27 Resp 20 11/03/22 07:27 BP 155/69 H 11/03/22 07:27 Pulse Ox 94 11/03/22 07:27 O2 Del Method Room Air 11/03/22 07:27 O2 Flow Rate 3 11/01/22 11:50 FiO2 40 10/23/22 23:41 Oxygen Flow Rate 4 10/17/22 08:24 BMI result Body Mass Index 0.1 Appearing in no acute distress lung sounds are clear to auscultation heart regular rate rhythm, clear S1, S2 positive bowel sounds, abdomen is soft, nontender neuro patient is alert x3, no focal deficits Objective Data Active Medications Acetaminophen (Acetaminophen 325 Mg Tablet) 650 mg PO Q6H PRN PRN Reason: Pain, Mild (Pain Scale 1-3) Last Admin: 11/02/22 20:57 Dose: 650 mg Documented By: MARY Amiodarone HCl (Amiodarone Hcl 200 Mg Tablet) 200 mg PO DAILY [facility] Last Admin: 11/03/22 08:39 Dose: 200 mg Documented By: ESGUNDO Amlodipine Besylate (Amlodipine Besylate 5 Mg Tablet) 5 mg PO DAILY [facility]; Protocol Last Admin: 11/03/22 08:39 Dose: 5 mg Documented By: SEGUNDO Apixaban (Apixaban 5 Mg Tablet) 5 mg PO BID [facility] Last Admin: 11/03/22 08:39 Dose: 5 mg Documented By: SEGUNDO Artificial Tears (Artificial Tears 15 Ml Drops) 1 drop EYE-BOTH Q4H PRN PRN Reason: Dry Eyes Last Admin: 11/03/22 08:39 Dose: 1 drop Documented By: SEGUNDO Cholestyramine Resin (Cholestyramine (With Sugar) 4 Gm Powd.Pack) 2 gm PO BIDWM [facility] Last Admin: 11/03/22 08:41 Dose: Not Given Documented By: SEGUNDO Non-Admin Reason: Patient Refused Docusate Sodium (Docusate Sodium 100 Mg Capsule) 100 mg PO DAILY PRN PRN Reason: Constipation Glucose (Glucose Gel 15 Gm Gel..Gram.) 15 gm PO Q15M PRN; Protocol PRN Reason: per Hypoglycemia Standing Ord. Dextrose (D10) 250 mls @ 750 mls/hr IV Q15M PRN; Protocol PRN Reason: per Hypoglycemia Standing Ord. Insulin Human Lispro (Insulin Lispro 100 Unit/Ml 3 Ml Vial) 0 unit SUBCUT QIDACHS [facility]; Protocol Last Admin: 11/03/22 08:40 Dose: 2 unit Documented By: SEGUNDO Isosorbide Mononitrate (Isosorbide Mononitrate 60 Mg Tab.Er.24h) 60 mg PO DAILY [facility]; Protocol Last Admin: 11/03/22 08:39 Dose: 60 mg Documented By: SEGUNDO Levothyroxine Sodium (Levothyroxine Sodium 50 Mcg Tablet) 50 mcg PO DAILY@0630 [facility] Last Admin: 11/03/22 05:13 Dose: 50 mcg Documented By: MARY Loperamide HCl (Loperamide Hcl 2 Mg Capsule) 2 mg PO Q6H [facility] Last Admin: 11/03/22 08:40 Dose: 2 mg Documented By: SEGUNDO Lorazepam (Lorazepam 2 Mg/Ml Vial) 0.25 mg IVPUSH BID PRN PRN Reason: anxiety Last Admin: 11/01/22 20:54 Dose: 0.25 mg Documented By: KELLI Omeprazole (Omeprazole 20 Mg Capsule.Dr) 20 mg PO DAILY@0630 [facility] Last Admin: 11/03/22 05:13 Dose: 20 mg Documented By: MARY Ondansetron HCl (Ondansetron Hcl 4 Mg/2 Ml Vial) 4 mg IVPUSH Q6H PRN PRN Reason: Nausea and Vomiting Last Admin: 11/03/22 03:45 Dose: 4 mg Documented By: MARY Oxycodone HCl (Oxycodone Hcl Immed Release 5 Mg Tablet) 5 mg PO Q4H PRN PRN Reason: Pain, Mild (Pain Scale 1-3) Last Admin: 11/03/22 08:40 Dose: 5 mg Documented By: SEGUNDO Sertraline HCl (Sertraline Hcl 25 Mg Tablet) 25 mg PO DAILY [facility] Last Admin: 11/03/22 08:40 Dose: 25 mg Documented By: SEGUNDO Sodium Chloride (0.9 % Sodium Chloride Flush 3 Ml Syringe) 3 ml IVFLUSH QSHIFT [facility] Last Admin: 11/03/22 08:40 Dose: 3 ml Documented By: SEGUNDO Sucralfate (Sucralfate Oral Suspension 1 Gm/10 Ml Oral.Susp) 1 gm PO QIDACHS [facility] Last Admin: 11/03/22 08:40 Dose: 1 gm Documented By: SEGUNDO Labs 11/01/22 07:53 11/02/22 05:50 Labs: Laboratory Results - last 24 hr 11/02/22 11/02/22 11/02/22 11:12 16:02 20:23 POC Glucose 217 H 161 H 171 H 11/03/22 07:25 POC Glucose 197 H Assessment and Plan (1) Diarrhea: Status: Acute Plan This is a 77-year-old female with history of HFpEF, T2DM, HTN, CKD 3/4, chronic back/neck pain secondary to spinal stenosis who presents to the emergency department with complaints of shortness of breath found to have acute respiratory failure secondary to CHF Diarrhea Cdiff gene pos, A&B negative s/p Vancomycin oral 10 days (end date 10/31/22) increase imodium dose to 4mg Q6h cholestyramine added remove rectal tube when improved labile mood ativan prn for anxiety seen by psych - started on sertraline dysphagia intermittent globus sensation - chronic speech following, patient declines to eat anything more then pureed texture MBSS done 10/30 without signs of aspiration or penetration droopy eyelids seen by neuro -doesn't not feel that this represents MG Acetylcholine receptor antibodies pending seems to be improving Bloody stool. Resolved One episode likely from colitis as per GI examination carafate for persistent diarrhea PPI KEILA on CKD 3b. trending down, likely from overdiuresis creatinine improving no alejandra/arb or nsaids as per nephro nephrology following diuretics on hold until diarrhea improved Hypernatremia. resolved likely from overduresis Acute respiratory failure with hypoxia / hypercarbia. resolved secondary bilateral pna, CHF . Resolved s/p Intermittent BiPAP normal ABG wean oxygen as tolerated acute on chronic HFpEF. Resolved echo 10/20/22 normal EF, severe pulm HTN s/p bumex drip increased isosorbide to 60mg daily cardio following on torsemide bid at baseline, on hold for now due to KEILA Colitis. s/p treatment with Zosyn seen by general surgery, no surgical intervention required Bilateral pneumonia s/p Zosyn and Doxycycline blood cultures negative paroxysmal atrial fibrillation now in sinus started on amiodarone, finished loading dose, now on 200 mg daily AC with Eliquis hypokalemia resolved HTN home dose of metoprolol and norvasc d/c in ICU was previously on norvasc 10, now on 5 mg continue imdur T2DM SSI, ADA diet seen by speech rec NDD1 for now hypothyroid continue synthroid chronic pain gabapentin d/c during ICU stay weaned off IV narcotics, prn oxycodone (on oxy at baseline) Gerd continue omeprazole Morbid obesity bmi 37.4 weight loss encouraged dvt ppx - Eliquis code status - Full code attending Dr. Prashanth AYALA. Encourage OOB Bed to chair, PT evaluation rec STR - bed search underway patient requires ongoing stay in the hospital for management ongoing diarrhea and safe disposition Time Spent With Patient Time: Total time managing care of this patient today ____ minutes. Quality Stroke Does the patient have a stroke diagnosis?: No VTE Prior VTE?: No VTE Risk Level:: Medical - moderate - high VTE Device Contraindication: N/A - Device Ordered VTE Drug Contraindication: N/A - Med Ordered
[2022-11-03 10:58] VITALS: BP 151/66; PULSE 52; RESP 20; TEMP 36.7; O2SAT 95
[2022-11-03 11:46] LABS: Glucose, Whole Blood 224 mg/dL (60-115)
[2022-11-03 14:02] VITALS: BMI 37.5
--- NOTE | 2022-11-03 14:55 | MHC.CM.PN ---
EMR REVIEWED AND PER MD ROUNDS, PT WILL NEED STR. [facility] CAN OFFER PENDING AUTH AND REMOVAL OF RECTAL TUBE FOR 11/04, WILL CONTINUE TO FOLLOW FOR ANY CHANGE IN PLAN.
[2022-11-03] MEDS: Loperamide HCl 2 MG CAPSULE 4 MG PO ×2 (15:26→21:58)
[2022-11-03 16:00] VITALS: BP 136/63; PULSE 51; RESP 15; TEMP 36.6; O2SAT 95
[2022-11-03] MEDS: Cholestyramine (With Sugar) 4 GM POWD.PACK 2 GM PO (16:59)
[2022-11-03 17:09] LABS: Glucose, Whole Blood 162 mg/dL (60-115)
[2022-11-03 19:46] VITALS: BP 146/64; PULSE 53; RESP 14; TEMP 37.2; O2SAT 92
[2022-11-03 21:03] LABS: Glucose, Whole Blood 163 mg/dL (60-115)
[2022-11-04] VITALS (7 sets, daily range): BP systolic 125–159; BP diastolic 59–67; PULSE 53–82; RESP 14–20; TEMP 36.1–37.2; O2SAT 93–96; BMI 37.8
[2022-11-04] MEDS: oxyCODONE HCl Immed Release 5 MG TABLET PO ×4 (00:07→16:57)
[2022-11-04] MEDS: Loperamide HCl 2 MG CAPSULE 4 MG PO ×5 (04:34→20:41)
[2022-11-04] MEDS: Levothyroxine Sodium 50 MCG TABLET PO (06:06)
[2022-11-04] MEDS: Omeprazole 20 MG CAPSULE.DR PO (06:06)
[2022-11-04] MEDS: Artificial Tears 15 ML DROPS 1 DROP EYE-BOTH ×4 (06:06→20:42)
[2022-11-04 07:12] LABS: Glucose, Whole Blood 201 mg/dL (60-115)
[2022-11-04] MEDS: Insulin Lispro 100 UNIT/ML 3 ML VIAL SUBCUT ×4 (08:56→20:41)
[2022-11-04] MEDS: Amiodarone HCL 200 MG TABLET PO (08:57)
[2022-11-04] MEDS: Apixaban 5 MG TABLET PO ×2 (08:57→20:40)
[2022-11-04] MEDS: Sucralfate Oral Suspension 1 GM/10 ML ORAL.SUSP PO ×4 (08:57→20:40)
[2022-11-04] MEDS: Isosorbide Mononitrate 60 MG TAB.ER.24H PO (08:57)
[2022-11-04] MEDS: Sertraline HCL 25 MG TABLET PO (08:57)
[2022-11-04] MEDS: amLODIPine Besylate 5 MG TABLET PO (08:57)
[2022-11-04] MEDS: 0.9 % Sodium Chloride Flush 3 ML SYRINGE IVFLUSH ×3 (09:07→20:41)
[2022-11-04 11:13] LABS: Anion Gap 11 (12-20); Blood Urea Nitrogen 32 mg/dL (9-16); Calcium 8.5 mg/dL (8.4-10.2); Carbon Dioxide 31 mmol/L (22-29); Chloride 102 mmol/L (96-108); Creatinine Clr Calc Pharmacy 23.8; Estimated Glomerular Filt Rate 24; Glucose Random 221 mg/dL (60-115); Potassium 3.8 mmol/L (3.3-5.1); Sodium 140 mmol/L (135-145)
[2022-11-04 11:18] LABS: Glucose, Whole Blood 253 mg/dL (60-115)
--- NOTE | 2022-11-04 11:27 | HO.PM.IMPN ---
Subjective Subjective Date of Service: 11/04/22 Interval History: seen and examined this morning follow up for chf, pneumonia, diarrhea still with diarrhea no significant abdominal pain Review of Systems Review of Systems: Yes all other systems are reviewed and are negative Constitutional Constitutional: Denies chills and Denies fever(s) Cardiovascular Cardiovascular: Denies chest pain, Denies palpitations and Denies dyspnea Respiratory Respiratory: Denies cough and Denies dyspnea Gastrointestinal Gastrointestinal: Denies abdominal pain Endocrine Endocrine: Denies palpitations Physical Exam Vital Signs: Vital Signs: Last Vital Signs Temp 98.2 F 11/04/22 11:16 Pulse 53 11/04/22 11:16 Resp 20 11/04/22 11:16 BP 138/65 11/04/22 11:16 Pulse Ox 95 11/04/22 11:16 O2 Del Method Room Air 11/04/22 11:16 O2 Flow Rate 3 11/01/22 11:50 FiO2 40 10/23/22 23:41 Oxygen Flow Rate 4 10/17/22 08:24 BMI result Body Mass Index 37.8 Appearing in no acute distress LSCTA heart regular rate rhythm, clear S1, S2 positive bowel sounds, abdomen is soft, nontender neuro patient is alert x3, no focal deficits Rectal tube Objective Data Active Medications Acetaminophen (Acetaminophen 325 Mg Tablet) 650 mg PO Q6H PRN PRN Reason: Pain, Mild (Pain Scale 1-3) Last Admin: 11/02/22 20:57 Dose: 650 mg Documented By: MARY Amiodarone HCl (Amiodarone Hcl 200 Mg Tablet) 200 mg PO DAILY [facility] Last Admin: 11/04/22 08:57 Dose: 200 mg Documented By: BARRY Amlodipine Besylate (Amlodipine Besylate 5 Mg Tablet) 5 mg PO DAILY [facility]; Protocol Last Admin: 11/04/22 08:57 Dose: 5 mg Documented By: BARRY Apixaban (Apixaban 5 Mg Tablet) 5 mg PO BID [facility] Last Admin: 11/04/22 08:57 Dose: 5 mg Documented By: BARRY Artificial Tears (Artificial Tears 15 Ml Drops) 1 drop EYE-BOTH Q4H PRN PRN Reason: Dry Eyes Last Admin: 11/04/22 10:34 Dose: 1 drop Documented By: BARRY Cholestyramine Resin (Cholestyramine (With Sugar) 4 Gm Powd.Pack) 2 gm PO BIDWM [facility] Last Admin: 11/04/22 09:14 Dose: Not Given Documented By: BARRY Non-Admin Reason: Patient Refused Docusate Sodium (Docusate Sodium 100 Mg Capsule) 100 mg PO DAILY PRN PRN Reason: Constipation Glucose (Glucose Gel 15 Gm Gel..Gram.) 15 gm PO Q15M PRN; Protocol PRN Reason: per Hypoglycemia Standing Ord. Dextrose (D10) 250 mls @ 750 mls/hr IV Q15M PRN; Protocol PRN Reason: per Hypoglycemia Standing Ord. Insulin Human Lispro (Insulin Lispro 100 Unit/Ml 3 Ml Vial) 0 unit SUBCUT QIDACHS [facility]; Protocol Last Admin: 11/04/22 08:56 Dose: 4 unit Documented By: BARRY Isosorbide Mononitrate (Isosorbide Mononitrate 60 Mg Tab.Er.24h) 60 mg PO DAILY [facility]; Protocol Last Admin: 11/04/22 08:57 Dose: 60 mg Documented By: BARRY Levothyroxine Sodium (Levothyroxine Sodium 50 Mcg Tablet) 50 mcg PO DAILY@0630 [facility] Last Admin: 11/04/22 06:06 Dose: 50 mcg Documented By: NANCY Loperamide HCl (Loperamide Hcl 2 Mg Capsule) 4 mg PO Q6H [facility] Last Admin: 11/04/22 08:57 Dose: 4 mg Documented By: BARRY Lorazepam (Lorazepam 2 Mg/Ml Vial) 0.25 mg IVPUSH BID PRN PRN Reason: anxiety Last Admin: 11/01/22 20:54 Dose: 0.25 mg Documented By: KLELI Omeprazole (Omeprazole 20 Mg Capsule.Dr) 20 mg PO DAILY@0630 [facility] Last Admin: 11/04/22 06:06 Dose: 20 mg Documented By: NANCY Ondansetron HCl (Ondansetron Hcl 4 Mg/2 Ml Vial) 4 mg IVPUSH Q6H PRN PRN Reason: Nausea and Vomiting Last Admin: 11/03/22 17:03 Dose: 4 mg Documented By: DAVID Oxycodone HCl (Oxycodone Hcl Immed Release 5 Mg Tablet) 5 mg PO Q4H PRN PRN Reason: Pain, Mild (Pain Scale 1-3) Last Admin: 11/04/22 04:34 Dose: 5 mg Documented By: NANCY Sertraline HCl (Sertraline Hcl 25 Mg Tablet) 25 mg PO DAILY [facility] Last Admin: 11/04/22 08:57 Dose: 25 mg Documented By: ABRRY Sodium Chloride (0.9 % Sodium Chloride Flush 3 Ml Syringe) 3 ml IVFLUSH QSHIFT [facility] Last Admin: 11/04/22 09:07 Dose: 3 ml Documented By: BARRY Sucralfate (Sucralfate Oral Suspension 1 Gm/10 Ml Oral.Susp) 1 gm PO QIDACHS [facility] Last Admin: 11/04/22 08:57 Dose: 1 gm Documented By: BARRY Labs 11/01/22 07:53 11/04/22 08:20 Labs: Laboratory Results - last 24 hr 11/03/22 11/03/22 11/03/22 10:57 16:52 20:58 Anion Gap Estim Creat Clear Calc Estimated GFR POC Glucose 224 H 162 H 163 H Random Glucose Calcium 11/04/22 11/04/22 11/04/22 07:06 08:20 10:59 Anion Gap 11 L Estim Creat Clear Calc 23.8 Estimated GFR 24 POC Glucose 201 H 253 H Random Glucose 221 H Calcium 8.5 Assessment and Plan (1) Diarrhea: Status: Acute Plan This is a 77-year-old female with history of HFpEF, T2DM, HTN, CKD 3/4, chronic back/neck pain secondary to spinal stenosis who presents to the emergency department with complaints of shortness of breath found to have acute respiratory failure secondary to CHF Diarrhea Cdiff gene pos, A&B negative s/p Vancomycin oral 10 days (end date 10/31/22) increase imodium dose to 4mg Q4h cholestyramine added remove rectal tube when improved labile mood ativan prn for anxiety seen by psych - started on sertraline dysphagia intermittent globus sensation - chronic speech following, patient declines to eat anything more then pureed texture MBSS done 10/30 without signs of aspiration or penetration droopy eyelids seen by neuro -doesn't not feel that this represents MG Acetylcholine receptor antibodies pending seems to be improving Bloody stool. Resolved One episode likely from colitis as per GI examination carafate for persistent diarrhea PPI KEILA on CKD 3b. trending down, likely from overdiuresis creatinine improving no alejandra/arb or nsaids as per nephro nephrology following diuretics on hold until diarrhea improved Hypernatremia. resolved likely from overduresis Acute respiratory failure with hypoxia / hypercarbia. resolved secondary bilateral pna, CHF . Resolved s/p Intermittent BiPAP normal ABG wean oxygen as tolerated acute on chronic HFpEF. Resolved echo 10/20/22 normal EF, severe pulm HTN s/p bumex drip increased isosorbide to 60mg daily cardio following on torsemide bid at baseline, on hold for now due to KEILA Colitis. s/p treatment with Zosyn seen by general surgery, no surgical intervention required Bilateral pneumonia s/p Zosyn and Doxycycline blood cultures negative paroxysmal atrial fibrillation now in sinus started on amiodarone, finished loading dose, now on 200 mg daily AC with Eliquis hypokalemia resolved HTN home dose of metoprolol and norvasc d/c in ICU was previously on norvasc 10, now on 5 mg continue imdur T2DM SSI, ADA diet seen by speech rec NDD1 for now hypothyroid continue synthroid chronic pain gabapentin d/c during ICU stay weaned off IV narcotics, prn oxycodone (on oxy at baseline) Gerd continue omeprazole Morbid obesity bmi 37.4 weight loss encouraged dvt ppx - Eliquis code status - Full code attending Dr. Prashanth AYALA. Encourage OOB Bed to chair, PT evaluation rec STR - bed search underway patient requires ongoing stay in the hospital for management ongoing diarrhea and safe disposition Time Spent With Patient Time: Total time managing care of this patient today ____ minutes. Quality Stroke Does the patient have a stroke diagnosis?: No VTE Prior VTE?: No VTE Risk Level:: Medical - moderate - high VTE Device Contraindication: N/A - Device Ordered VTE Drug Contraindication: N/A - Med Ordered
--- NOTE | 2022-11-04 12:26 | MHC.CM.PN ---
EMR REVIEWED, PER HOSPITALIST PT NOT READY FOR D/C TO [facility], PLAN TO INCREASE IMMODIUM AND REMOVAL OF RECTAL TUBE, PT CANNOT TXFR TO SNF W/RECTAL TUBE IN PLACE, [facility] UPDATED AND CM WILL CONT TO FOLLOW D/C NEEDS.
[2022-11-04 14:04] LABS: CDiff Gene PCR NEGATIVE (Negative)
[2022-11-04 16:27] LABS: Glucose, Whole Blood 152 mg/dL (60-115)
[2022-11-04] MEDS: ondansetron HCL 4 MG/2 ML VIAL IVPUSH (18:26)
[2022-11-04 20:50] LABS: Glucose, Whole Blood 166 mg/dL (60-115)
--- NOTE | 2022-11-04 23:59 | PM.PNNEP ---
Subjective Subjective Date of Service: 11/04/22 Interval history: Seen and examined, events noted Physical Exam Vital Signs: Vital Signs: Last Vital Signs Temp 97.2 F 11/04/22 23:55 Pulse 82 11/04/22 23:55 Resp 18 11/04/22 23:55 BP 159/59 H 11/04/22 23:55 Pulse Ox 96 11/04/22 23:55 O2 Del Method Room Air 11/04/22 23:55 O2 Flow Rate 3 11/01/22 11:50 FiO2 40 10/23/22 23:41 Oxygen Flow Rate 4 10/17/22 08:24 BMI result Body Mass Index 37.8 Const: Other: appears tired, but sitting up in bed, awake, alert General: cooperative, comfortable, no acute distress, alert and awake Nutritional Appearance: overweight Orientation/consciousness: oriented to person, oriented to place and patient oriented x3 Eyes: EOM: EOMs intact bilaterally Neck: Neck: Yes supple Resp: Other: decreased respiratory effort, diminished breath sounds Effort & Inspection: normal respiratory effort, able to speak in complete sentences, no respiratory distress and no use of accessory muscles Auscultation: diminished lung sounds Cardio: Rate: regular rate Heart sounds: S1 normal heart sound present and S2 normal heart sound present GI: Other: rectal tube in place Inspection: No distended Palpation (GI): Soft to palpation, nontender and no guarding Skin: Other: some bruising left AC General skin exam: no rashes or lesions noted Neuro: Other: grossly non-focal General: oriented to person, oriented to place, patient oriented x3, moves all extremities and CN's II-XI intact bilaterally Extrem: Other: Able to move all 4 extremities spontaneously General: Yes no pedal edema Objective Data Labs 11/01/22 07:53 11/04/22 08:20 Labs: Laboratory Results - last 24 hr 11/04/22 11/04/22 11/04/22 07:06 08:20 10:59 Sodium 140 Potassium 3.8 Chloride 102 Carbon Dioxide 31 H Anion Gap 11 L BUN 32 H Creatinine 2.01 H Estim Creat Clear Calc 23.8 Estimated GFR 24 POC Glucose 201 H 253 H Random Glucose 221 H Calcium 8.5 C. difficile Tox B Gene 11/04/22 11/04/22 11/04/22 12:15 16:11 20:35 Sodium Potassium Chloride Carbon Dioxide Anion Gap BUN Creatinine Estim Creat Clear Calc Estimated GFR POC Glucose 152 H 166 H Random Glucose Calcium C. difficile Tox B Gene NEGATIVE Microbiology Microbiology Results: Microbiology 10/17/22 08:57 Blood - Venous Blood Culture - Final No growth after 5 days. 10/17/22 08:45 Blood - Venous Blood Culture - Final No growth after 5 days. Procedures Date of Service Date of Service: 11/05/22 Assessment & Plan Assessment and plan (1) Acute kidney injury superimposed on CKD: Status: Acute Assessment and Plan: - KEILA: resolved; c/wCRS decomp - CKD 3b: BSL SCr 1.5-2.0 range REC: cont to track renal func; r/s diuretics as diarrhea resolves Time Spent With Patient Time: Total time managing care of this patient today ____ minutes. Progress Note: Quality Stroke Does the patient have a stroke diagnosis?: No
[2022-11-05] MEDS: Loperamide HCl 2 MG CAPSULE 4 MG PO ×2 (00:18→08:13)
[2022-11-05] MEDS: oxyCODONE HCl Immed Release 5 MG TABLET PO ×4 (00:18→17:41)
[2022-11-05 04:00] VITALS: BP 159/63; PULSE 82; RESP 19; TEMP 36.2; O2SAT 96
[2022-11-05 06:00] VITALS: BMI 37.1
[2022-11-05] MEDS: Omeprazole 20 MG CAPSULE.DR PO (06:15)
[2022-11-05] MEDS: Levothyroxine Sodium 50 MCG TABLET PO (06:16)
[2022-11-05 07:36] VITALS: BP 165/70; PULSE 56; RESP 20; TEMP 36.5; O2SAT 98
[2022-11-05 07:37] LABS: Glucose, Whole Blood 234 mg/dL (60-115)
[2022-11-05] MEDS: Insulin Lispro 100 UNIT/ML 3 ML VIAL SUBCUT ×4 (08:13→20:10)
[2022-11-05] MEDS: amLODIPine Besylate 5 MG TABLET PO (08:14)
[2022-11-05] MEDS: Sertraline HCL 25 MG TABLET PO (08:14)
[2022-11-05] MEDS: Isosorbide Mononitrate 60 MG TAB.ER.24H PO (08:14)
[2022-11-05] MEDS: Sucralfate Oral Suspension 1 GM/10 ML ORAL.SUSP PO ×4 (08:14→20:10)
[2022-11-05] MEDS: Amiodarone HCL 200 MG TABLET PO (08:14)
[2022-11-05] MEDS: Apixaban 5 MG TABLET PO ×2 (08:14→20:10)
[2022-11-05] MEDS: 0.9 % Sodium Chloride Flush 3 ML SYRINGE IVFLUSH ×3 (08:21→20:13)
[2022-11-05 11:15] VITALS: BP 141/61; PULSE 55; RESP 20; TEMP 36.4; O2SAT 100
[2022-11-05 11:33] LABS: Glucose, Whole Blood 240 mg/dL (60-115)
--- NOTE | 2022-11-05 11:56 | P.PNIM_ITS ---
Subjective Subjective Date of Service: 11/05/22 Interval History: no breathing problems no chest pain off O2 continues to have watery diarrhea with rectal tube Review of Systems Review of Systems: Yes all other systems are reviewed and are negative Physical Exam Vital Signs: Vital Signs: Last Vital Signs Temp 97.5 F 11/05/22 11:15 Pulse 55 11/05/22 11:15 Resp 20 11/05/22 11:15 BP 141/61 H 11/05/22 11:15 Pulse Ox 100 11/05/22 11:15 O2 Del Method Room Air 11/05/22 11:15 O2 Flow Rate 3 11/01/22 11:50 FiO2 40 10/23/22 23:41 Oxygen Flow Rate 4 10/17/22 08:24 BMI result Body Mass Index 37.1 Gen: in no acute distress HEENT: sclera anicteric, moist mucus membranes Neck: supple Lungs: clear to auscultation bilaterally Heart: regular rate and rhythm, no murmurs Abd: soft, non-tender, non-distended, rectal tube with liquid brown stool Ext: no edema Skin: warm/well-perfused Neuro: alert and oriented x3, no focal findings Psych: appropriate affect Objective Data Active Medications Acetaminophen (Acetaminophen 325 Mg Tablet) 650 mg PO Q6H PRN PRN Reason: Pain, Mild (Pain Scale 1-3) Last Admin: 11/02/22 20:57 Dose: 650 mg Documented By: MARY Amiodarone HCl (Amiodarone Hcl 200 Mg Tablet) 200 mg PO DAILY [facility] Last Admin: 11/05/22 08:14 Dose: 200 mg Documented By: JOSE Amlodipine Besylate (Amlodipine Besylate 5 Mg Tablet) 5 mg PO DAILY [facility]; Protocol Last Admin: 11/05/22 08:14 Dose: 5 mg Documented By: JOSE Apixaban (Apixaban 5 Mg Tablet) 5 mg PO BID [facility] Last Admin: 11/05/22 08:14 Dose: 5 mg Documented By: JOSE Artificial Tears (Artificial Tears 15 Ml Drops) 1 drop EYE-BOTH Q4H PRN PRN Reason: Dry Eyes Last Admin: 11/04/22 20:42 Dose: 1 drop Documented By: CHERYL Cholestyramine Resin (Cholestyramine (With Sugar) 4 Gm Powd.Pack) 2 gm PO BIDWM [facility] Last Admin: 11/05/22 08:13 Dose: Not Given Documented By: JOSE Non-Admin Reason: Patient Refused Docusate Sodium (Docusate Sodium 100 Mg Capsule) 100 mg PO DAILY PRN PRN Reason: Constipation Glucose (Glucose Gel 15 Gm Gel..Gram.) 15 gm PO Q15M PRN; Protocol PRN Reason: per Hypoglycemia Standing Ord. Dextrose (D10) 250 mls @ 750 mls/hr IV Q15M PRN; Protocol PRN Reason: per Hypoglycemia Standing Ord. Insulin Human Lispro (Insulin Lispro 100 Unit/Ml 3 Ml Vial) 0 unit SUBCUT QIDACHS [facility]; Protocol Last Admin: 11/05/22 08:13 Dose: 4 unit Documented By: JOSE Isosorbide Mononitrate (Isosorbide Mononitrate 60 Mg Tab.Er.24h) 60 mg PO DAILY [facility]; Protocol Last Admin: 11/05/22 08:14 Dose: 60 mg Documented By: JOSE Levothyroxine Sodium (Levothyroxine Sodium 50 Mcg Tablet) 50 mcg PO DAILY@0630 [facility] Last Admin: 11/05/22 06:16 Dose: 50 mcg Documented By: CHERYL Loperamide HCl (Loperamide Hcl 2 Mg Capsule) 4 mg PO Q4H [facility] Last Admin: 11/05/22 08:13 Dose: 4 mg Documented By: JOSE Lorazepam (Lorazepam 2 Mg/Ml Vial) 0.25 mg IVPUSH BID PRN PRN Reason: anxiety Last Admin: 11/01/22 20:54 Dose: 0.25 mg Documented By: KELLI Omeprazole (Omeprazole 20 Mg Capsule.) 20 mg PO DAILY@0630 [facility] Last Admin: 11/05/22 06:15 Dose: 20 mg Documented By: CHERYL Ondansetron HCl (Ondansetron Hcl 4 Mg/2 Ml Vial) 4 mg IVPUSH Q6H PRN PRN Reason: Nausea and Vomiting Last Admin: 11/04/22 18:26 Dose: 4 mg Documented By: BROYuliet Oxycodone HCl (Oxycodone Hcl Immed Release 5 Mg Tablet) 5 mg PO Q4H PRN PRN Reason: Pain, Mild (Pain Scale 1-3) Last Admin: 11/05/22 06:17 Dose: 5 mg Documented By: CHERYL Sertraline HCl (Sertraline Hcl 25 Mg Tablet) 25 mg PO DAILY [facility] Last Admin: 11/05/22 08:14 Dose: 25 mg Documented By: JOSE Sodium Chloride (0.9 % Sodium Chloride Flush 3 Ml Syringe) 3 ml IVFLUSH QSHIFT [facility] Last Admin: 11/05/22 08:21 Dose: 3 ml Documented By: JOSE Sucralfate (Sucralfate Oral Suspension 1 Gm/10 Ml Oral.Susp) 1 gm PO QIDACHS [facility] Last Admin: 11/05/22 08:14 Dose: 1 gm Documented By: JOSE Labs 11/01/22 07:53 11/04/22 08:20 Labs: Laboratory Results - last 24 hr 11/04/22 11/04/22 11/04/22 12:15 16:11 20:35 POC Glucose 152 H 166 H C. difficile Tox B Gene NEGATIVE 11/05/22 11/05/22 07:30 11:14 POC Glucose 234 H 240 H C. difficile Tox B Gene Assessment and Plan (1) Diarrhea: Status: Acute Plan d#20 77yo F with chronic HFpEF, DM2, CKD 3/4, HTN, chronic back/neck pain from spinal stenosis presented with dyspnea, admitted for respiratory failure due to CHF exacerbation briefly in ICU 10/19 overnight for BiPAP support # diarrhea, persistent - initially Cdiff gene positive, A/B negative; got 10d of vancomycin until 10/31/22; repeat test yesterday negative - added cholestyramine and will switch loperamide to diphenoxylate/atropine - will d/c rectal tube as it was ordered 10/29/22; try to manage with antidiarrheals # labile mood - prn lorazepam, started on sertraline by Psych # chronic dysphagia with intermittent globus sensation - PROCEDURE WRITER following, pt declines to eat anything more than pureed texture despite MBSS done 10/30 without signs of aspiration or penetration # droopy eyelids - seen by Neuro, unliekly MG though ACh-R Ab pending; seems to be improving; ?c onversion # bloody stool, 1 episode, resolved - likely from colitis that was treated with 7d of pip-martha - continue PPI, sucralfate # KEILA/CKD3 - likely due to overdiuresis, SCr now back to baseline, avoid nephrotoxins, Nephrology following, continue to hold diuretics until diarrhea improved # hyperNa - resolved # acute respiratory failure with hypoxia + hypercarbia due to bilateral PNA + CHF exacerbation - resolved, s/p intermittent BiPAP # acute/chronic HFpEF - resolved s/p bumetanide gtt; torsemide held due to KEILA - TTE 10/20/22 normal EF, severe pulm HTN - continue isosorbid mononitrate # bilateral PNA - resolved, treated with 7d of pip-martha + doxy, BCx negative # paroxysmal AF - now sinus. started on amiodarone load, now on 200 mg daily maintenance - anticoagulated with apixaban # hypoK - repleted # HTN - continue amlodipine + isosorbide mononitrate # DM2 - correction-dose lispro # hypothyroidism - continue LT4 # chronic pain - gabapentin d/c'ed during ICU stay - weaned off IV narcotics, prn oxycodone (on oxycodone at baseline) # GERD - continue PPI, sucralfate # obesity - weight loss # VTE ppx: apixaban # dispo: plan STR at [facility] In my clinical judgment, the patient requires continued inpatient hospitalization for the following reasons: severe diarrhea, rectal tube- will try to manage without tube Time Spent With Patient Time: Total time managing care of this patient today __40__ minutes. Quality Stroke Does the patient have a stroke diagnosis?: No VTE Prior VTE?: No VTE Risk Level:: Medical - moderate - high VTE Device Contraindication: N/A - Device Ordered VTE Drug Contraindication: N/A - Med Ordered
[2022-11-05] MEDS: Diphenoxylate/Atrop 2.5/0.025 TABLET 2 TAB PO ×3 (13:34→20:10)
[2022-11-05 15:26] VITALS: BP 135/64; PULSE 52; RESP 13; TEMP 36.4; O2SAT 97
[2022-11-05 16:10] LABS: Glucose, Whole Blood 282 mg/dL (60-115)
[2022-11-05] MEDS: Artificial Tears 15 ML DROPS 1 DROP EYE-BOTH ×2 (17:38→20:13)
[2022-11-05 19:23] VITALS: BP 139/65; PULSE 53; RESP 14; TEMP 36.6; O2SAT 95
[2022-11-05 20:00] LABS: Glucose, Whole Blood 187 mg/dL (60-115)
[2022-11-06] VITALS: BP 139/66; PULSE 52; RESP 19; TEMP 36.3; O2SAT 96
[2022-11-06] MEDS: oxyCODONE HCl Immed Release 5 MG TABLET PO ×5 (00:12→20:46)
[2022-11-06 03:42] VITALS: BP 139/66; PULSE 52; RESP 19; TEMP 36.3; O2SAT 96
[2022-11-06 06:00] VITALS: BMI 37.3
[2022-11-06] MEDS: Omeprazole 20 MG CAPSULE.DR PO (06:13)
[2022-11-06] MEDS: Levothyroxine Sodium 50 MCG TABLET PO (06:13)
[2022-11-06 07:07] VITALS: BP 155/67; PULSE 58; RESP 20; TEMP 36.8; O2SAT 92
[2022-11-06 07:29] LABS: Glucose, Whole Blood 221 mg/dL (60-115)
[2022-11-06] MEDS: Insulin Lispro 100 UNIT/ML 3 ML VIAL SUBCUT ×3 (08:10→20:45)
[2022-11-06] MEDS: Sertraline HCL 25 MG TABLET PO (08:10)
[2022-11-06] MEDS: Apixaban 5 MG TABLET PO ×2 (08:10→20:46)
[2022-11-06] MEDS: Diphenoxylate/Atrop 2.5/0.025 TABLET 2 TAB PO ×4 (08:10→20:45)
[2022-11-06] MEDS: Sucralfate Oral Suspension 1 GM/10 ML ORAL.SUSP PO ×4 (08:10→20:46)
[2022-11-06] MEDS: Amiodarone HCL 200 MG TABLET PO (08:10)
[2022-11-06] MEDS: Isosorbide Mononitrate 60 MG TAB.ER.24H PO (08:10)
[2022-11-06] MEDS: amLODIPine Besylate 5 MG TABLET PO (08:10)
[2022-11-06] MEDS: 0.9 % Sodium Chloride Flush 3 ML SYRINGE IVFLUSH ×3 (08:11→20:47)
[2022-11-06] MEDS: Artificial Tears 15 ML DROPS 1 DROP EYE-BOTH ×2 (08:14→17:10)
[2022-11-06 11:11] VITALS: BP 141/64; PULSE 56; RESP 20; TEMP 36.7; O2SAT 96
[2022-11-06 11:36] LABS: Glucose, Whole Blood 138 mg/dL (60-115)
--- NOTE | 2022-11-06 15:51 | P.PNIM_ITS ---
Subjective Subjective Date of Service: 11/06/22 Interval History: seen and examined this morning follow up for multiple issues rectal tube removed this am overall feeling much better no sob, no abdominal pain diarrhea seems to be improving Review of Systems Review of Systems: Yes all other systems are reviewed and are negative Constitutional Constitutional: Denies chills and Denies fever(s) Cardiovascular Cardiovascular: Denies chest pain, Denies palpitations and Denies dyspnea Respiratory Respiratory: Denies cough and Denies dyspnea Gastrointestinal Gastrointestinal: Denies abdominal pain and Reports diarrhea Endocrine Endocrine: Denies palpitations Physical Exam Vital Signs: Vital Signs: Last Vital Signs Temp 98.1 F 11/06/22 11:11 Pulse 56 11/06/22 11:11 Resp 20 11/06/22 11:11 BP 141/64 H 11/06/22 11:11 Pulse Ox 96 11/06/22 11:11 O2 Del Method Room Air 11/06/22 11:11 O2 Flow Rate 3 11/01/22 11:50 FiO2 40 10/23/22 23:41 Oxygen Flow Rate 4 10/17/22 08:24 BMI result Body Mass Index 37.3 Const: General: comfortable, no acute distress, alert and awake Nutritional Appearance: overweight Orientation/consciousness: patient oriented x3 Resp: Effort & Inspection: normal respiratory effort, able to speak in complete sentences, no respiratory distress and no use of accessory muscles Cardio: Rate: regular rate Heart sounds: S1 normal heart sound present and S2 normal heart sound present GI: Inspection: No distended Palpation (GI): Soft to palpation, nontender and no guarding Neuro: General: patient oriented x3, moves all extremities and CN's II-XI intact bilaterally Extrem: Other: Able to move all 4 extremities spontaneously General: Yes no pedal edema Objective Data Active Medications Acetaminophen (Acetaminophen 325 Mg Tablet) 650 mg PO Q6H PRN PRN Reason: Pain, Mild (Pain Scale 1-3) Last Admin: 11/02/22 20:57 Dose: 650 mg Documented By: MARY Amiodarone HCl (Amiodarone Hcl 200 Mg Tablet) 200 mg PO DAILY [facility] Last Admin: 11/06/22 08:10 Dose: 200 mg Documented By: JOSE Amlodipine Besylate (Amlodipine Besylate 5 Mg Tablet) 5 mg PO DAILY [facility]; Protocol Last Admin: 11/06/22 08:10 Dose: 5 mg Documented By: JOSE Apixaban (Apixaban 5 Mg Tablet) 5 mg PO BID [facility] Last Admin: 11/06/22 08:10 Dose: 5 mg Documented By: JOSE Artificial Tears (Artificial Tears 15 Ml Drops) 1 drop EYE-BOTH Q4H PRN PRN Reason: Dry Eyes Last Admin: 11/06/22 08:14 Dose: 1 drop Documented By: JOSE Cholestyramine Resin (Cholestyramine (With Sugar) 4 Gm Powd.Pack) 2 gm PO BIDWM [facility] Last Admin: 11/06/22 08:11 Dose: Not Given Documented By: JOSE Non-Admin Reason: Patient Refused Diphenoxylate HCl/Atropine (Diphenoxylate/Atrop 2.5/0.025 Tablet) 2 tab PO QID [facility] Last Admin: 11/06/22 12:18 Dose: 2 tab Documented By: JOSE Docusate Sodium (Docusate Sodium 100 Mg Capsule) 100 mg PO DAILY PRN PRN Reason: Constipation Glucose (Glucose Gel 15 Gm Gel..Gram.) 15 gm PO Q15M PRN; Protocol PRN Reason: per Hypoglycemia Standing Ord. Dextrose (D10) 250 mls @ 750 mls/hr IV Q15M PRN; Protocol PRN Reason: per Hypoglycemia Standing Ord. Insulin Human Lispro (Insulin Lispro 100 Unit/Ml 3 Ml Vial) 0 unit SUBCUT QIDACHS [facility]; Protocol Last Admin: 11/06/22 11:46 Dose: Not Given Documented By: JOSE Non-Admin Reason: No Insulin Coverage Isosorbide Mononitrate (Isosorbide Mononitrate 60 Mg Tab.Er.24h) 60 mg PO DAILY [facility]; Protocol Last Admin: 11/06/22 08:10 Dose: 60 mg Documented By: JOSE Levothyroxine Sodium (Levothyroxine Sodium 50 Mcg Tablet) 50 mcg PO DAILY@0630 [facility] Last Admin: 11/06/22 06:13 Dose: 50 mcg Documented By: CHERYL Omeprazole (Omeprazole 20 Mg Capsule.Dr) 20 mg PO DAILY@0630 [facility] Last Admin: 11/06/22 06:13 Dose: 20 mg Documented By: CHERYL Ondansetron HCl (Ondansetron Hcl 4 Mg/2 Ml Vial) 4 mg IVPUSH Q6H PRN PRN Reason: Nausea and Vomiting Last Admin: 11/04/22 18:26 Dose: 4 mg Documented By: BARRY Oxycodone HCl (Oxycodone Hcl Immed Release 5 Mg Tablet) 5 mg PO Q4H PRN PRN Reason: Pain, Mild (Pain Scale 1-3) Last Admin: 11/06/22 15:03 Dose: 5 mg Documented By: JOSE Sertraline HCl (Sertraline Hcl 25 Mg Tablet) 25 mg PO DAILY [facility] Last Admin: 11/06/22 08:10 Dose: 25 mg Documented By: JOSE Sodium Chloride (0.9 % Sodium Chloride Flush 3 Ml Syringe) 3 ml IVFLUSH QSHIFT [facility] Last Admin: 11/06/22 15:05 Dose: 3 ml Documented By: JOSE Sucralfate (Sucralfate Oral Suspension 1 Gm/10 Ml Oral.Susp) 1 gm PO QIDACHS [facility] Last Admin: 11/06/22 12:18 Dose: 1 gm Documented By: JOSE Labs 11/01/22 07:53 11/04/22 08:20 Labs: Laboratory Results - last 24 hr 11/05/22 11/05/22 11/06/22 16:02 19:53 07:05 POC Glucose 282 H 187 H 221 H 11/06/22 11:09 POC Glucose 138 H Assessment and Plan (1) Diarrhea: Status: Acute Plan 77yo F with chronic HFpEF, DM2, CKD 3/4, HTN, chronic back/neck pain from spinal stenosis presented with dyspnea, admitted for respiratory failure due to CHF exacerbation briefly in ICU 10/19 overnight for BiPAP support # diarrhea, persistent - initially Cdiff gene positive, A/B negative; got 10d of vancomycin until 10/31/22; repeat test yesterday negative - added cholestyramine and will switch loperamide to diphenoxylate/atropine - d/c rectal tube as it was ordered 10/29/22; try to manage with antidiarrheals # labile mood - prn lorazepam, started on sertraline by Psych # chronic dysphagia with intermittent globus sensation - SCHEDULE SUPERVISOR following, pt declines to eat anything more than pureed texture despite MBSS done 10/30 without signs of aspiration or penetration # droopy eyelids - seen by Neuro, unliekly MG though ACh-R Ab pending; seems to be improving; ?conversion # bloody stool, 1 episode, resolved - likely from colitis that was treated with 7d of pip-martha - continue PPI, sucralfate # KEILA/CKD3 - likely due to overdiuresis, SCr now back to baseline, avoid nephrotoxins, Nephrology following, continue to hold diuretics until diarrhea improved # hyperNa - resolved # acute respiratory failure with hypoxia + hypercarbia due to bilateral PNA + CHF exacerbation - resolved, s/p intermittent BiPAP # acute/chronic HFpEF - resolved s/p bumetanide gtt; torsemide held due to KEILA - TTE 10/20/22 normal EF, severe pulm HTN - continue isosorbid mononitrate # bilateral PNA - resolved, treated with 7d of pip-martha + doxy, BCx negative # paroxysmal AF - now sinus. started on amiodarone load, now on 200 mg daily maintenance - anticoagulated with apixaban # hypoK - repleted # HTN - continue amlodipine + isosorbide mononitrate # DM2 - correction-dose lispro # hypothyroidism - continue LT4 # chronic pain - gabapentin d/c'ed during ICU stay - weaned off IV narcotics, prn oxycodone (on oxycodone at baseline) # GERD - continue PPI, sucralfate # obesity - weight loss # VTE ppx: apixaban # dispo: plan [facility] In my clinical judgment, the patient requires continued inpatient hospitalization for the following reasons: severe diarrhea, rectal tube- will try to manage without tube Time Spent With Patient Time: Total time managing care of this patient today ____ minutes. Quality Stroke Does the patient have a stroke diagnosis?: No VTE Prior VTE?: No VTE Risk Level:: Medical - moderate - high VTE Device Contraindication: N/A - Device Ordered VTE Drug Contraindication: N/A - Med Ordered
[2022-11-06 16:00] VITALS: BP 137/63; PULSE 56; RESP 20; TEMP 35.9; O2SAT 94
[2022-11-06 16:27] LABS: Glucose, Whole Blood 178 mg/dL (60-115)
[2022-11-06 19:16] VITALS: BP 149/67; PULSE 54; RESP 20; TEMP 36; O2SAT 97
[2022-11-06 20:02] LABS: Glucose, Whole Blood 208 mg/dL (60-115)
[2022-11-06] MEDS: ondansetron HCL 4 MG/2 ML VIAL IVPUSH (20:45)
--- NOTE | 2022-11-06 23:34 | PM.PNNEP ---
Subjective Subjective Date of Service: 11/06/22 Interval history: Seen and examied, events noted Physical Exam Vital Signs: Vital Signs: Last Vital Signs Temp 96.8 F 11/06/22 19:16 Pulse 54 11/06/22 19:16 Resp 20 11/06/22 19:16 BP 149/67 H 11/06/22 19:16 Pulse Ox 97 11/06/22 19:16 O2 Del Method Room Air 11/06/22 19:16 O2 Flow Rate 3 11/01/22 11:50 FiO2 40 10/23/22 23:41 Oxygen Flow Rate 4 10/17/22 08:24 BMI result Body Mass Index 37.3 Const: Other: appears tired, but sitting up in bed, awake, alert General: cooperative, comfortable, no acute distress, alert and awake Nutritional Appearance: overweight Orientation/consciousness: oriented to person, oriented to place and patient oriented x3 Eyes: EOM: EOMs intact bilaterally Neck: Neck: Yes supple Resp: Other: decreased respiratory effort, diminished breath sounds Effort & Inspection: normal respiratory effort, able to speak in complete sentences, no respiratory distress and no use of accessory muscles Auscultation: diminished lung sounds Cardio: Rate: regular rate Heart sounds: S1 normal heart sound present and S2 normal heart sound present GI: Other: rectal tube in place Inspection: No distended Palpation (GI): Soft to palpation, nontender and no guarding Skin: Other: some bruising left AC General skin exam: no rashes or lesions noted Neuro: Other: grossly non-focal General: oriented to person, oriented to place, patient oriented x3, moves all extremities and CN's II-XI intact bilaterally Extrem: Other: Able to move all 4 extremities spontaneously General: Yes no pedal edema Objective Data Labs 11/01/22 07:53 11/04/22 08:20 Labs: Laboratory Results - last 24 hr 11/06/22 11/06/22 11/06/22 07:05 11:09 16:22 POC Glucose 221 H 138 H 178 H 11/06/22 19:54 POC Glucose 208 H Microbiology Microbiology Results: Microbiology 10/17/22 08:57 Blood - Venous Blood Culture - Final No growth after 5 days. 10/17/22 08:45 Blood - Venous Blood Culture - Final No growth after 5 days. Procedures Date of Service Date of Service: 11/06/22 Assessment & Plan Assessment and plan (1) Acute kidney injury superimposed on CKD: Status: Acute Assessment and Plan: - KEILA: resolved; c/wCRS decomp - CKD 3b: BSL SCr 1.5-2.0 range REC: no new recs except recheck renal labs; cont to track renal func; r/s diuretics as diarrhea resolves Time Spent With Patient Time: Total time managing care of this patient today ____ minutes. Progress Note: Quality Stroke Does the patient have a stroke diagnosis?: No
[2022-11-07] VITALS: BP 152/67; PULSE 55; RESP 18; TEMP 37.1; O2SAT 93
[2022-11-07 03:56] VITALS: BP 161/71; PULSE 60; RESP 19; TEMP 36.1; O2SAT 94
[2022-11-07] MEDS: Omeprazole 20 MG CAPSULE.DR PO (06:00)
[2022-11-07] MEDS: Levothyroxine Sodium 50 MCG TABLET PO (06:00)
[2022-11-07 07:38] LABS: Glucose, Whole Blood 194 mg/dL (60-115)
[2022-11-07 07:52] VITALS: BP 155/69; PULSE 58; RESP 20; TEMP 37.2; O2SAT 93
[2022-11-07] MEDS: Diphenoxylate/Atrop 2.5/0.025 TABLET 2 TAB PO ×3 (09:07→16:37)
[2022-11-07] MEDS: Sucralfate Oral Suspension 1 GM/10 ML ORAL.SUSP PO ×2 (09:07→14:01)
[2022-11-07] MEDS: Isosorbide Mononitrate 60 MG TAB.ER.24H PO (09:07)
[2022-11-07] MEDS: amLODIPine Besylate 5 MG TABLET PO (09:07)
[2022-11-07] MEDS: Apixaban 5 MG TABLET PO (09:08)
[2022-11-07] MEDS: Insulin Lispro 100 UNIT/ML 3 ML VIAL SUBCUT ×3 (09:08→16:39)
[2022-11-07] MEDS: Amiodarone HCL 200 MG TABLET PO (09:08)
[2022-11-07] MEDS: Sertraline HCL 25 MG TABLET PO (09:08)
[2022-11-07] MEDS: 0.9 % Sodium Chloride Flush 3 ML SYRINGE IVFLUSH (09:09)
[2022-11-07] MEDS: oxyCODONE HCl Immed Release 5 MG TABLET PO ×2 (09:19→14:01)
--- NOTE | 2022-11-07 09:21 | PC.NURSE ---
Patient rufused morning MARA Lawton stated she doesnt like how it makes er feel
[2022-11-07 11:29] LABS: Glucose, Whole Blood 167 mg/dL (60-115)
[2022-11-07 11:41] VITALS: BP 148/65; PULSE 56; RESP 19; TEMP 37.2; O2SAT 94
--- NOTE | 2022-11-07 14:03 | P.PNIM_ITS ---
Subjective Subjective Date of Service: 11/07/22 Interval History: seen and examined this morning follow up for diarrhea feeling better everyday. diarrhea improving. no specific complaints Review of Systems Review of Systems: Yes all other systems are reviewed and are negative Constitutional Constitutional: Denies chills and Denies fever(s) Cardiovascular Cardiovascular: Denies chest pain, Denies palpitations and Denies dyspnea Respiratory Respiratory: Denies cough and Denies dyspnea Gastrointestinal Gastrointestinal: Denies nausea and Denies vomiting Endocrine Endocrine: Denies palpitations Physical Exam Vital Signs: Vital Signs: Last Vital Signs Temp 99.0 F 11/07/22 11:41 Pulse 56 11/07/22 11:41 Resp 19 11/07/22 11:41 BP 148/65 H 11/07/22 11:41 Pulse Ox 94 11/07/22 11:41 O2 Del Method Room Air 11/07/22 11:41 O2 Flow Rate 3 11/01/22 11:50 FiO2 40 10/23/22 23:41 Oxygen Flow Rate 4 10/17/22 08:24 BMI result Body Mass Index 37.3 Const: General: comfortable, no acute distress, alert and awake Nutritional Appearance: overweight Orientation/consciousness: patient oriented x3 Resp: Other: decreased respiratory effort, diminished breath sounds Effort & Inspection: normal respiratory effort, able to speak in complete se ntences, no respiratory distress and no use of accessory muscles Cardio: Rate: regular rate Heart sounds: S1 normal heart sound present and S2 normal heart sound present GI: Inspection: No distended Palpation (GI): Soft to palpation, nontender and no guarding Skin: Other: some bruising left AC Neuro: Other: grossly non-focal General: patient oriented x3, moves all extremities and CN's II-XI intact bilaterally Extrem: Other: Able to move all 4 extremities spontaneously General: Yes no pedal edema Objective Data Active Medications Acetaminophen (Acetaminophen 325 Mg Tablet) 650 mg PO Q6H PRN PRN Reason: Pain, Mild (Pain Scale 1-3) Last Admin: 11/02/22 20:57 Dose: 650 mg Documented By: MARY Amiodarone HCl (Amiodarone Hcl 200 Mg Tablet) 200 mg PO DAILY [facility] Last Admin: 11/07/22 09:08 Dose: 200 mg Documented By: MELVIN Amlodipine Besylate (Amlodipine Besylate 5 Mg Tablet) 5 mg PO DAILY [facility]; Protocol Last Admin: 11/07/22 09:07 Dose: 5 mg Documented By: MELVIN Apixaban (Apixaban 5 Mg Tablet) 5 mg PO BID [facility] Last Admin: 11/07/22 09:08 Dose: 5 mg Documented By: MELVIN Artificial Tears (Artificial Tears 15 Ml Drops) 1 drop EYE-BOTH Q4H PRN PRN Reason: Dry Eyes Last Admin: 11/06/22 17:10 Dose: 1 drop Documented By: JOSE Cholestyramine Resin (Cholestyramine (With Sugar) 4 Gm Powd.Pack) 2 gm PO BIDWM [facility] Last Admin: 11/07/22 09:21 Dose: Not Given Documented By: MELVIN Non-Admin Reason: Patient Refused Diphenoxylate HCl/Atropine (Diphenoxylate/Atrop 2.5/0.025 Tablet) 2 tab PO QID [facility] Last Admin: 11/07/22 13:59 Dose: 2 tab Documented By: MELVIN Docusate Sodium (Docusate Sodium 100 Mg Capsule) 100 mg PO DAILY PRN PRN Reason: Constipation Glucose (Glucose Gel 15 Gm Gel..Gram.) 15 gm PO Q15M PRN; Protocol PRN Reason: per Hypoglycemia Standing Ord. Dextrose (D10) 250 mls @ 750 mls/hr IV Q15M PRN; Protocol PRN Reason: per Hypoglycemia Standing Ord. Insulin Human Lispro (Insulin Lispro 100 Unit/Ml 3 Ml Vial) 0 unit SUBCUT QIDACHS [facility]; Protocol Last Admin: 11/07/22 14:01 Dose: 2 unit Documented By: MELVIN Isosorbide Mononitrate (Isosorbide Mononitrate 60 Mg Tab.Er.24h) 60 mg PO DAILY [facility]; Protocol Last Admin: 11/07/22 09:07 Dose: 60 mg Documented By: MELVIN Levothyroxine Sodium (Levothyroxine Sodium 50 Mcg Tablet) 50 mcg PO DAILY@629 [facility] Last Admin: 11/07/22 06:00 Dose: 50 mcg Documented By: ARCELIA Omeprazole (Omeprazole 20 Mg Capsule.) 20 mg PO DAILY@629 [facility] Last Admin: 11/07/22 06:00 Dose: 20 mg Documented By: ARCELIA Ondansetron HCl (Ondansetron Hcl 4 Mg/2 Ml Vial) 4 mg IVPUSH Q6H PRN PRN Reason: Nausea and Vomiting Last Admin: 11/06/22 20:45 Dose: 4 mg Documented By: ARCELIA Oxycodone HCl (Oxycodone Hcl Immed Release 5 Mg Tablet) 5 mg PO Q4H PRN PRN Reason: Pain, Mild (Pain Scale 1-3) Last Admin: 11/07/22 14:01 Dose: 5 mg Documented By: MELVIN Sertraline HCl (Sertraline Hcl 25 Mg Tablet) 25 mg PO DAILY [facility] Last Admin: 11/07/22 09:08 Dose: 25 mg Documented By: MELVIN Sodium Chloride (0.9 % Sodium Chloride Flush 3 Ml Syringe) 3 ml IVFLUSH QSHIFT [facility] Last Admin: 11/07/22 09:09 Dose: 3 ml Documented By: MELVIN Sucralfate (Sucralfate Oral Suspension 1 Gm/10 Ml Oral.Susp) 1 gm PO QIDACHS [facility] Last Admin: 11/07/22 14:01 Dose: 1 gm Documented By: MELVIN Labs 11/01/22 07:53 11/04/22 08:20 Labs: Laboratory Results - last 24 hr 11/06/22 11/06/22 11/07/22 16:22 19:54 07:26 POC Glucose 178 H 208 H 194 H 11/07/22 11:20 POC Glucose 167 H Assessment and Plan (1) Diarrhea: Status: Acute Plan 77yo F with chronic HFpEF, DM2, CKD 3/4, HTN, chronic back/neck pain from spinal stenosis presented with dyspnea, admitted for respiratory failure due to CHF exacerbation briefly in ICU 10/19 overnight for BiPAP support # diarrhea. improving - initially Cdiff gene positive, A/B negative; got 10d of vancomycin until 10/31/22; repeat test negative - added cholestyramine and will switch loperamide to diphenoxylate/atropine # labile mood - prn lorazepam, started on sertraline by Psych # chronic dysphagia with intermittent globus sensation - SPINE SPECIALIST following, pt declines to eat anything more than pureed texture despite MBSS done 10/30 without signs of aspiration or penetration # droopy eyelids - seen by Neuro, unliekly MG though ACh-R Ab pending; ?conversion improving # bloody stool, 1 episode, resolved - likely from colitis that was treated with 7d of pip-martha - continue PPI, sucralfate # KEILA/CKD3 - likely due to overdiuresis, SCr now back to baseline, avoid nephrotoxins, Nephrology following, continue to hold diuretics until diarrhea improved # hyperNa - resolved # acute respiratory failure with hypoxia + hypercarbia due to bilateral PNA + CHF exacerbation - resolved, s/p intermittent BiPAP # acute/chronic HFpEF - resolved s/p bumetanide gtt; torsemide held due to KEILA - TTE 10/20/22 normal EF, severe pulm HTN - continue isosorbid mononitrate # bilateral PNA - resolved, treated with 7d of pip-martha + doxy, BCx negative # paroxysmal AF - now sinus. started on amiodarone load, now on 200 mg daily maintenance - anticoagulated with apixaban # hypoK - repleted # HTN - continue amlodipine + isosorbide mononitrate # DM2 - correction-dose lispro # hypothyroidism - continue LT4 # chronic pain - gabapentin d/c'ed during ICU stay - weaned off IV narcotics, prn oxycodone (on oxycodone at baseline) # GERD - continue PPI, sucralfate # obesity - weight loss # VTE ppx: apixaban # dispo: plan STR attending - dr. hidalgo In my clinical judgment, the patient requires continued inpatient hospitalizatio n for the following reasons: placement Time Spent With Patient Time: Total time managing care of this patient today ____ minutes. Quality Stroke Does the patient have a stroke diagnosis?: No VTE Prior VTE?: No VTE Risk Level:: Medical - moderate - high VTE Device Contraindication: N/A - Device Ordered VTE Drug Contraindication: N/A - Med Ordered
--- NOTE | 2022-11-07 14:12 | MHC.CM.PN ---
PT MEDICALLY CLEARED FOR D/C TO STR AT [facility] PENDING INSURANCE AUTH, PT WILL NEED [facility] FOR [facility] D/T [facility] INSURANCE.
--- NOTE | 2022-11-07 14:39 | PM.DS ---
DS: Providers Provider Date of Service: 11/07/22 Date of admission: 10/17/22 15:30 Date of discharge: 11/07/22 Primary care physician: [place] Raymundo MD Consults: 10/17/22 15:36 Consult to Cardiology Routine Consulting Provider: [facility] Cardiovascular Services Reason for consultation: chf Has provider been notified: No 10/20/22 12:30 Consult to Gastroenterology Routine Consulting Provider: Carlo Da Silva Reason for consultation: abdominal pain Has provider been notified: No 10/21/22 07:38 Consult to General Surgery Routine Consulting Provider: [facility] General Surgeons Reason for consultation: severe abdominal pain 10/26/22 10:39 Consult to Gastroenterology Routine Consulting Provider: Carlo Da Silva Reason for consultation: bloody stool 10/28/22 09:46 Consult to Psychiatry Routine Consulting Provider: Psych Covering Reason for consultation: depression, anxiety 10/31/22 11:15 Consult to Neurology Routine Consulting Provider: [facility] Reason for consultation: drooping eyelids; fatigue Has provider been notified: No Attending physician on discharge: Cordell Alford Discharging clinician: Elaine York DS: Diagnosis Discharge Diagnosis (1) Diarrhea: Status: Acute (2) Rectal bleeding: Status: Acute (3) Depressive disorder: Status: Acute (4) PAF (paroxysmal atrial fibrillation): Status: Acute (5) Epigastric abdominal pain: Status: Acute (6) Acute on chronic diastolic CHF (congestive heart failure): Status: Acute (7) Acute respiratory failure with hypoxia and hypercapnia: Status: Acute (8) Acute kidney injury superimposed on CKD: Status: Acute (9) Pneumonia: Status: Acute (10) Acute kidney injury: Status: Acute DS: Summary Hospital Course Hospital Course: From H&P on day of admission this is a 77-year-old female with history of diastolic CHF, diabetes, hypertension who presents to the emergency department with shortness of breath.? She states that her shortness of breath has been ongoing for greater than 1 week, stating possibly ongoing for over a month. ? Sometimes she notices worsening shortness of breath on ambulation and sometimes she notices it at night while she is sleeping.? She denies any associated cough, fever, chills.? She has intermittent lower extremity edema.? She does report following a low-sodium diet but does not weigh herself on a daily basis.? she denies any abdominal pain, chest pain. In the emergency department initially her oxygen saturation dropped to 86% on room air and she was placed on nasal cannula and then changed over to OxyMask.? While in nuclear Medicine getting V/Q scan her oxygen saturation was noted to dip into the 70s at which point she briefly lost consciousness.? When she was sat up her oxygen saturation improved and she woke up.? ABG was obtained which showed elevated pCO2 of 55 at which time she was placed on BiPAP.? She was given a dose of IV Bumex for probable pulmonary edema.? She was seen and evaluated by caustic loader who switched her over to CPAP and felt she could safely be admitted to the medical floor.? Chest x-ray shows small pleural effusions with hazy basilar opacities, central vascular prominence without significant interstitial change.? Lab work significant for BNP of 246, leukocytosis of 16.8, creatinine of 2.96.? Lactic acid negative.? in addition to Bumex she received IV antibiotics for possibility of pneumonia. ? She will be admitted to the hospital for further management of acute respiratory failure. 77yo F with chronic HFpEF, DM2, CKD 3/4, HTN, chronic back/neck pain from spinal stenosis presented with dyspnea, admitted for respiratory failure due to CHF exacerbation briefly in ICU 10/19 overnight for BiPAP support acute respiratory failure with hypoxia + hypercarbia due to bilateral PNA + CHF exacerbation. resolved, s/p intermittent BiPAP and bumetanide gtt. seen by cardiology. TTE 10/20/22 normal EF, severe pulm HTN. started on isosorbide mononitrate. will need outpatient cardiology follow up. for bilateral PNA she completed course of antibiotics. Blood cultures remain negative. KEILA/CKD3 - likely due to overdiuresis, SCr now back to baseline, avoid nephrotoxins, Nephrology following. Recommend to repeat creatinine on Thursday and resume home dose of torsemide if renal function remains stable, with a creatinine around 2 or less. diarrhea. initially Cdiff gene positive, A/B negative; got 10d of vancomycin and repeat test negative. persistent diarrhea therefor added cholestyramine and diphenoxylate/atropine with significant improvement. labile mood. seen by psych and started on sertraline with improvement in symptoms chronic dysphagia with intermittent globus sensation - PARTICIPANT ADMINISTRATOR following, pt declines to eat anything more than pureed texture despite MBSS done 10/30 without signs of aspiration or penetration droopy eyelids- seen by Neuro, unlikely MG though ACh-R Ab pending; resolved ?conversion. eyes open without issue today bloody stool, 1 episode, resolved. likely from colitis that was treated with 7d of pip-martha hyperNa/hypokalemia - resolved paroxysmal AF. new diagnosis during hospitalization. now sinus.? started on amiodarone load, now on 200 mg daily maintenance and anticoagulated with apixaban HTN. bp stable continue amlodipine + isosorbide mononitrate DM2 - correction-dose lispro. home oral medications have been on hold. may need to be resumed as appetite/po intake improve hypothyroidism- continue LT4 chronic pain - gabapentin d/c'ed during ICU stay. weaned off IV narcotics, continue prn oxycodone, dose reduced from baseline GERD- continue PPI, sucralfate recommend outpatient follow up with PCP anticipate less then 30 day stay at SNF Time Spent with Patient Time attestation: Total time managing care of this patient today ____ minutes. Discharge coordination time: Greater than 30 minutes Quality: Safe Use of Opioids Does Pt have an Active Cancer Diagnosis on the Problem List?: No Quality: Stroke Does the patient have a stroke diagnosis?: No Physical Exam Vital Signs: Vital Signs: Last Vital Signs Temp 99.0 F 11/07/22 11:41 Pulse 56 11/07/22 11:41 Resp 19 11/07/22 11:41 BP 148/65 H 11/07/22 11:41 Pulse Ox 94 11/07/22 11:41 O2 Del Method Room Air 11/07/22 11:41 O2 Flow Rate 3 11/01/22 11:50 FiO2 40 10/23/22 23:41 Oxygen Flow Rate 4 10/17/22 08:24 BMI result Body Mass Index 37.3 Const: General: comfortable, no acute distress, alert and awake Nutritional Appearance: overweight Orientation/consciousness: patient oriented x3 Resp: Effort & Inspection: normal respiratory effort, able to speak in complete sentences, no respiratory distress and no use of accessory muscles Cardio: Rate: regular rate Heart sounds: S1 normal heart sound present and S2 normal heart sound present GI: Inspection: No distended Palpation (GI): Soft to palpation, nontender and no guarding Skin: Other: some bruising left AC Neuro: Other: grossly non-focal General: patient oriented x3, moves all extremities and CN's II-XI intact bilaterally Extrem: Other: Able to move all 4 extremities spontaneously General: Yes no pedal edema DS: Data Data Completed and Pending Labs on day of discharge: Laboratory Results - last 24 hr 11/06/22 11/06/22 11/07/22 16:22 19:54 07:26 POC Glucose 178 H 208 H 194 H 11/07/22 11:20 POC Glucose 167 H Discharge Plan Discharge Anticipated Discharge Date/Time: 11/07/22 17:00 Patient Disposition: Xfer SNF Discharge Diagnosis: cdif bilateral pneumonia acute on chronic diastolic CHF KEILA on CKD3 rectal bleeding acute respiratory failure Referrals: [facility] [Outside] - 1 Day (SHORT TERM REHAB) [place] Raymundo MD [Primary Care Provider] - 1 Week Taye Florez MD [Physician] - 1 Week Discharge Medications: New Eliquis 5 mg Tablet 5 mg PO BID 30 Days Qty: 60 0RF amiodarone 200 mg Tablet 200 mg PO DAILY 30 Days Qty: 30 0RF amlodipine 5 mg Tablet 5 mg PO DAILY 30 Days Qty: 30 0RF Protocol: Hold for SBP< HOLD for SBP < : 90 cholestyramine (with sugar) 4 gram Powder In Packet 2 g PO BIDWM 30 Days Qty: 60 0RF isosorbide mononitrate 60 mg Tablet Extended Release 24 Hr 60 mg PO DAILY 30 Days Qty: 30 0RF Protocol: Hold for SBP< HOLD for SBP < : 90 oxycodone 5 mg Tablet 5 mg PO Q6H PRN (Reason: pain, severe) Qty: 20 0RF Rx Instructions: Partial Fill upon patient request. sertraline 25 mg Tablet 25 mg PO DAILY 30 Days Qty: 30 0RF diphenoxylate-atropine 2.5-0.025 mg Tablet 2 tab PO QID Qty: 10 0RF sucralfate 100 mg/mL Suspension 1 g PO QIDACHS Qty: 200 0RF insulin lispro [Humalog U-100 Insulin] 100 unit/mL Solution See Protocol subcut QIDACHS Qty: 10 0RF Protocol: Insulin Correction Scale Less than or equal to 110 ---- Give (units): 0 111 to 150 Give (units): 0 151 to 200 Give (units): 2 201 to 250 Give (units): 4 251 to 300 Give (units): 6 301 to 350 Give (units): 8 Greater than 350 Give (units): 10 Call MD if Blood Glucose > : 350 Continued omeprazole 20 mg capsule,delayed release(DR/EC) 20 mg PO BID Qty: 30 0RF diphenhydramine HCl [Benadryl] 25 mg Capsule 25 mg DAILY PRN (Reason: Allergic Symptoms) levothyroxine 50 mcg tablet 50 mcg PO DAILY Held torsemide 20 mg tablet 40 mg PO BID Hold Instructions: repeat BMP on Thursday. Resume Torsemide if renal function ok Discontinued prednisone 10 mg tablet See Taper PO DAILY Taper: Prednisone 30 mg daily for 3 Days and 0 Hour 20 mg daily for 3 Days and 0 Hour 10 mg daily for 3 Days and 0 Hour Rx Instructions: START ON 10/11/22 pioglitazone 30 mg tablet 30 mg PO DAILY amlodipine 10 mg tablet 10 mg PO DAILY gabapentin 400 mg capsule 400 mg PO TID metoprolol succinate 25 mg tablet extended release 24 hr 25 mg PO DAILY glimepiride 4 mg tablet 4 mg PO DAILY oxycodone 10 mg tablet 10 mg PO QID PRN (Reason: Pain (Scale Score 4-6)) Discharge Orders: Discharge Order (Routine); Ordered 11/07/22 Ordered By: Elaine York Activity on Discharge: As tolerated Stand Alone Forms: Patient Portal Discharge page Care Plan Goals: see below Health Concerns: cdif s/p treatment pneumonia s/p treatment CHF s/p diuresis KEILA on CKD Plan of Treatment: recommend repeat BMP on Thursday to renal function resume torsemide if renal function remains stable, creatinine around 2 or under monitor fluid status and renal function periodically will need outpatient follow up with cardiology diarrhea continues to improve, discontinue lomotil and cholestyramine when appropriate for diabetes cover with sliding scale. oral medications have been on hold during hospitalization. may need to be resumed as appetite/po intake improves will need to schedule outpatient follow up with PCP Assessment: see discharge summary
[2022-11-07 15:29] LABS: Glucose, Whole Blood 178 mg/dL (60-115)
[2022-11-07 15:37] VITALS: BP 135/63; PULSE 54; RESP 18; TEMP 36.5; O2SAT 94
[2022-11-07 17:11] LABS: COVID-19 Test Negative (Negative); IDNOW Serial# 08D9AD1C
[2022-11-09 15:03] LABS: Acetylcholine Receptor Binding 1.87 nmol/L
== END 2022-11-07 17:30 | disposition skilled nursing facility (03) | DRG 291 ==
LOC: HO.ED 10:08 → HO.EDOVER 16:02 → HO.IMC 18:46 → HO.ICU 10-19 00:26 → HO.IMC 10-19 09:40
PROVIDERS: Family Medicine; Internal Medicine; Nurse Practitioner Acute Care; Nurse Practitioner Family; Admitting Provider Physician Assistant Medical; Emergency Provider Emergency Medicine Emergency Medical Services; PCP Internal Medicine; Visit Provider Physician Assistant Medical
DX: I13.0 Hypertensive heart and chronic kidney disease with heart failure and stage 1 through stage 4 chronic kidney disease, or unspecified chronic kidney disease (principal); I50.33 Acute on chronic diastolic (congestive) heart failure; J96.02 Acute respiratory failure with hypercapnia; J96.01 Acute respiratory failure with hypoxia; A04.72 Enterocolitis due to Clostridium difficile, not specified as recurrent; N17.9 Acute kidney failure, unspecified; E87.0 Hyperosmolality and hypernatremia; E66.01 Morbid (severe) obesity due to excess calories; K21.9 Gastro-esophageal reflux disease without esophagitis; G89.29 Other chronic pain; K59.00 Constipation, unspecified; I48.0 Paroxysmal atrial fibrillation; F41.9 Anxiety disorder, unspecified; E03.9 Hypothyroidism, unspecified; I27.20 Pulmonary hypertension, unspecified; F32.A Depression, unspecified; D63.1 Anemia in chronic kidney disease; R13.10 Dysphagia, unspecified; E87.6 Hypokalemia; Z68.38 Body mass index [BMI] 38.0-38.9, adult; D64.9 Anemia, unspecified; N18.32 Chronic kidney disease, stage 3b; E11.22 Type 2 diabetes mellitus with diabetic chronic kidney disease; Z20.822 Contact with and (suspected) exposure to COVID-19; Z79.01 Long term (current) use of anticoagulants; Z79.890 Hormone replacement therapy; Z79.899 Other long term (current) drug therapy
CPT/HCPCS: 36415; 36600; 71045; 71250; 73502; 74018; 74176; 74230; 76705; 78580; 80048; 80053; 80076; 81003; 82040; 82150; 82803; 82947; 83519; 83605; 83690; 83735; 83880; 84100; 84145; 84443; 84484; 85025; 85027; 85379; 85610; 85730; 87040; 87324; 87493; 87502; 87635; 92526; 92610; 92611; 93005; 93306; 94660; 97110; 97162; 97530; 99285; A9540; C1758; J0456; J0696; J1643; J1885; J1940; J2060; J2270; J2405; J2543; J3475; P9047; Q9957

== ENCOUNTER → 2022-11-27 08:04 | Outpatient (BNVA) | payer MEDICARE, SELFPAY | PROVIDERS: PCP Internal Medicine; Visit Provider Internal Medicine | DX: I50.32 Chronic diastolic (congestive) heart failure (principal); I48.0 Paroxysmal atrial fibrillation; I08.1 Rheumatic disorders of both mitral and tricuspid valves; I27.20 Pulmonary hypertension, unspecified; Z79.01 Long term (current) use of anticoagulants | CPT/HCPCS: 93005; 99212 ==

== ENCOUNTER → 2022-12-15 10:21 | Outpatient (REF) | payer MEDICARE, SELFPAY ==
--- NOTE | ~2022-12-15 | NM_ITS ---
Myocardial perfusion study Indication: Chronic diastolic heart failure to evaluate for myocardial ischemia Technique: The patient was brought in for a Lexiscan perfusion study on 12/15/2022. Patient performed low-level exercise and was injected 0.4 mg of Lexiscan intravenously. Within a minute of injection, 30 mCi of sestamibi was given intravenously. Images were obtained using the SPECT gamma camera. Images were obtained in supine position. Resting perfusion study was performed on 12/16/2022. Patient was administered 30 mCi of sestamibi intravenously at rest. Images were then obtained in supine position. Images obtained with and without CT attenuation. Total DLP 129 mGy-cm. Images were processed with the software and compared side to side in short axis, horizontal long axis and vertical long axis views. Findings: The stress perfusion study showed small area of mildly reduced uptake in the inferoapical wall of the LV myocardium with a very focal finding on non attenuated images. Attenuated corrected images show mildly reduced uptake in the inferoapical of the LV myocardium. Gating was not performed due to atrial fibrillation. LV cavity is normal in size. Resting study shows non attenuated images show improved uptake in the inferoapical wall of the LV myocardium. Attenuated corrected images are suboptimal with diffuse knee reduced uptake in the anterior wall of the LV myocardium. Gating at rest was not performed. The findings are consistent with equivocal for small area of mild intensity reversible defect in the inferoapical wall.. NM/NM cardiolite stress test Impression: 1. Myocardial perfusion imaging study shows possible small area of mild intensity ischemia 2. Gated LVEF is not obtained 3. Transient ischemic dilatation not present EKG is nondiagnostic for ischemia
--- NOTE | 2022-12-15 10:23 | CA_ITS ---
Acquisition Time: 2022-12-15 11:10:35 Total Exercise Time: 00:02:00 Test Indications: CHF Medications: AMIOARONE AMLODIPINE ELIQUIS HUMALOG Protocol: LEXISCAN Max HR: 092 BPM 63% of Pred: 145 BPM Max BP: 138/052 mmHG Max Work Load: 1.0 METS Pharmacological stress test with Lexiscan injection, while sitting, without anginal symptoms, with frequent PACs ( with some EKGs looking like possible atrial flutter), with normotensive response to injection, with nondiagnostic EKG for ischemia. Nuclear images pending. Test reviewed with Dr Baron. Referred By: Jeremie Barber Overread By: PHONG ÁLVAREZ
--- NOTE | 2022-12-15 10:23 | HM_ITS ---
Conclusion: 1. Patient was monitored for total period of 3 days 2. Baseline was normal sinus with average heart of 64 beats per minute 3. Baseline bundle-branch block noted with no significant pauses greater than 2.5 seconds 4. Frequent PACs with total burden of 15.8% with multiple short burst longest 3 beats 5. No patient reported events MTDD
[2022-12-15 11:16] LABS: Glucose, Whole Blood 104 mg/dL (60-115)
== END ==
LOC: HO.CARD 10:21
PROVIDERS: PCP Internal Medicine; Visit Provider Internal Medicine
DX: I50.32 Chronic diastolic (congestive) heart failure (principal); I48.0 Paroxysmal atrial fibrillation
CPT/HCPCS: 78452; 82947; 93017; 93242; A9500; J0280; J2785

== ENCOUNTER 2022-12-16 13:20 | Inpatient (IN) | payer MEDICARE, OTHER, SELFPAY ==
[2022-12-16] VITALS (8 sets, daily range): BP systolic 111–167; BP diastolic 43–70; PULSE 40–85; RESP 13–18; TEMP 36.1–36.9; O2SAT 90–98; BMI 38.9
--- NOTE | ~2022-12-16 | XR_ITS ---
EXAMINATION: XR CHEST CLINICAL INFORMATION: SOB, hypoxia Patient has a heart monitor PACS at she is unable to remove COMPARISON: Chest 10/20/2022 TECHNIQUE: AP upright portable view of the chest was obtained. 1456 hour FINDINGS: There is stable enlargement of the cardiac silhouette. Pulmonary vascular redistribution is again seen. Previously noted bibasilar opacities have resolved. Likely small left pleural effusion. No acute osseous abnormality. XR/XR chest 1V IMPRESSION: Mild CHF with interval resolution of previously noted bibasilar opacities.
--- NOTE | ~2022-12-16 | US_ITS ---
EXAMINATION: US VENOUS ULTRASOUND WITH DOPPLER LOWER EXTREMITY, BILATERAL CLINICAL INFORMATION: Swelling and tenderness COMPARISON: None available. TECHNIQUE: Ultrasound of the deep veins is performed from the hip to the calf with compression sonography and color and pulse Doppler assessment. Spectral analysis with color-flow imaging is performed. FINDINGS: RIGHT: There is normal venous compression and respiratory variation and augmented flow. The visualized common femoral vein, superficial femoral vein, profunda femoral vein, popliteal vein, and the trifurcation region shows no evidence of deep venous thrombosis. There is no significant popliteal fossa cyst. LEFT: There is normal venous compression and respiratory variation and augmented flow. The visualized common femoral vein, superficial femoral vein, profunda femoral vein, popliteal vein, and the trifurcation region shows no evidence of deep venous thrombosis. There is no significant popliteal fossa cyst. US/US venous duplex LE BI IMPRESSION: No DVT demonstrated in the bilateral lower extremity.
--- NOTE | 2022-12-16 14:10 | ECG_ITS ---
Test Reason : weakness Blood Pressure : / mmHG Vent. Rate : 063 BPM Atrial Rate : 000 BPM P-R Int : 000 ms QRS Dur : 138 ms QT Int : 470 ms P-R-T Axes : 000 015 038 degrees QTc Int : 480 ms Normal sinus rhythm Premature atrial complexes Left bundle branch block Abnormal ECG When compared with ECG of 18-OCT-2022 00:16, No significant changes seen Referred By: Mari Her Electronically Signed By:SOPHIE BERNARD
--- NOTE | 2022-12-16 14:27 | ED.WEAKNESS ---
HPI - Weakness General Chief complaint: Weakness Stated complaint: WEAKNESS,BRADYCARDIA PER EMS Time Seen by Provider: 12/16/22 13:44 Source: patient, EMS, RN notes reviewed and old records reviewed Mode of arrival: EMS Limitations: no limitations History of Present Illness HPI Narrative: 77 year old female with a PMHx of pulmonary HTN, paroxysmal atrial fibrillation on Eliquis, CHF w/HFpEF, recently discharged from our facility on 11/07/2022 for acute respiratory failure secondary to CHF & b/l PNA requiring 1 night in the ICU with intermittent BiPAP and Bumex drip, presenting to the ED complaining of progressing weakness for the last week w/increasing bilateral LE edema and exertional SOB. Patient was bradycardic upon arrival per EMS. Admits to diffuse abdominal pain, worsening dyspnea, occasional dry cough, lightheadedness, chills and myalgias. Denies CP, recent falls, headache, nausea, vomiting, diarrhea, or fever. No other acute concerns at this time. MD Complaint: generalized weakness Onset (ago): week(s) Related Data Home Medications Medication Instructions Recorded Confirmed levothyroxine 50 mcg tablet 50 mcg PO DAILY@0600 10/11/22 12/16/22 diphenhydramine HCl 25 mg capsule 25 mg DAILY PRN Allergic Symptoms 10/17/22 12/16/22 (Benadryl) docusate sodium 100 mg capsule 100 mg PO DAILY PRN Constipation 11/27/22 12/16/22 (Colace) metoclopramide HCl 5 mg tablet 5 mg PO QID 11/27/22 11/27/22 acetaminophen 325 mg tablet 650 mg PO Q6H PRN Pain 12/16/22 12/16/22 (Tylenol) dapagliflozin propanediol 10 mg 10 mg PO DAILY 12/16/22 tablet (Farxiga) oxycodone 10 mg tablet 10 mg PO QID PRN Pain 12/16/22 12/16/22 sucralfate 1 gram tablet 1 g PO QID 12/16/22 12/16/22 trazodone 50 mg tablet 50 - 100 mg PO BEDTIME 12/16/22 Previous Rx's Medication Instructions Recorded omeprazole 20 mg capsule,delayed 20 mg PO BID #30 caps 08/22/20 release amlodipine 5 mg tablet 5 mg PO DAILY 30 days #30 tabs 11/07/22 apixaban 5 mg tablet (Eliquis) 5 mg PO BID 30 days #60 tabs 11/07/22 insulin lispro 100 unit/mL See Protocol subcut QIDACHS #10 mL 11/07/22 subcutaneous solution (Humalog U-100 Insulin) sertraline 25 mg tablet 25 mg PO DAILY 30 days #30 tabs 11/07/22 amiodarone 200 mg tablet 200 mg PO DAILY 30 days #90 tabs 12/05/22 isosorbide mononitrate 60 mg 60 mg PO DAILY 30 days #90 tabs 12/05/22 tablet,extended release 24 hr Allergies Allergy/AdvReac Type Severity Reaction Status Date / Time levofloxacin [From LEVAQUIN] AdvReac Mild flushed Verified 11/27/22 08:31 Review of Systems Review of Systems: Constitutional: No Fever, + Chills ENT/Mouth: No Nasal Congestion, No Sinus Pain, No Hoarseness, No sore throat, No Rhinorrhea, No Swallowing Difficulty Cardiovascular: No Chest Pain, + SOB, +exertional dyspnea Respiratory: + Occasional Cough, No Sputum, No Wheezing Gastrointestinal: No Nausea, No Vomiting, No Diarrhea, No Constipation, + diffuse abdominal pain Genitourinary: No Dysuria, No Urinary Frequency, No Hematuria, No Urinary Incontinence/retention, No Urgency, No Flank Pain Musculoskeletal: No joint pain, + Myalgias, + LE edema Skin: No Skin Lesions, No rash Neuro: + generalized Weakness, No Numbness, No Paresthesias Yes all other systems are reviewed and are negative Constitutional: Constitutional: Reports as per [facility] Past Medical History Attestation statement: The following information was validated with the patient. Source: old records reviewed Medical History CKD (chronic kidney disease), stage IV Depressive disorder Diabetes Diastolic CHF HTN (hypertension) PAF (paroxysmal atrial fibrillation) Spinal stenosis Thyroid activity decreased Family History Family History Other Diabetes Social History Social History Household Members: Spouse Housing: House Do you presently have visiting nurse or other home services: No Alcohol intake: never Patient Tobacco Use Status: Never used Tobacco Smoked in Last 30 Days: No Second Hand Smoke Exposure: No Use of substances other than those prescribed or required for medical reasons: No Advance Directives: Yes Advance Directives on File: Yes Advance Directives Date on File: 08/22/20 service: No Current occupational status: retired Physical Exam Vital Signs: Vital Signs: Last Vital Signs Temp 97.5 F 12/16/22 16:03 Pulse 60 12/16/22 16:03 Resp 14 12/16/22 16:03 BP 138/47 L 12/16/22 16:03 Pulse Ox 96 12/16/22 16:03 O2 Del Method Nasal Cannula 12/16/22 16:03 O2 Flow Rate 2 12/16/22 16:03 BMI result Body Mass Index 38.9 Const: General: cooperative, no acute distress, alert and awake Orientation/consciousness: patient oriented x3 Limitations: no limitations HEENT: Head: Yes normal to inspection and Yes atraumatic Ears: hearing grossly normal bilaterally General nose exam: Normal external nose present Face and sinus: Yes normal facial exam Eyes: General: appearance normal, both eyes and all related structures EOM: EOMs intact bilaterally Neck: Neck: Yes normal visual inspection and Yes no meningeal signs Resp: Effort & Inspection: normal respiratory effort and no respiratory distress Auscultation: crackles bilateral at the base (slight) Cardio: Rate: regular rate Heart sounds: S1 normal heart sound present and S2 normal heart sound present GI: Inspection: Yes normal to inspection Palpation (GI): Soft to palpation, nontender, no guarding and not rigid Skin: Rashes: no rashes Wounds: no wounds Neuro: General: patient oriented x3, tone normal and no meningeal signs Gait exam (Neuro): Normal gait present Extrem: General: Yes normal to inspection and Yes edema (2+ bilaterally) Course Course Course Narrative: -1545--no leukocytosis. H&H lower than baseline > patient denies melena, brbpr > will obtain occult stool -mildly hyperkalemic to 5.3 > 5g Lokelma given, chronic CKD (better than prior). BNP 209, chronically elevated US venous duplex LE BI IMPRESSION: No DVT demonstrated in the bilateral lower extremity. XR chest 1V IMPRESSION: Mild CHF with interval resolution of previously noted bibasilar opacities. > 40 mg IV Lasix ordered. Plan to admit for further management Medical Decision Making Medical Decision Making [facility] Narrative: 77 year old female with a PMHx of pulmonary HTN, paroxysmal atrial fibrillation on Eliquis, CHF w/HFpEF, recently discharged from our facility on 11/07/2022 for acute respiratory failure secondary to CHF & b/l PNA requiring 1 night in the ICU with intermittent BiPAP and Bumex drip, presenting to the ED complaining of progressing weakness for the last week w/increasing bilateral LE edema and exertional SOB. On exam satting 90% on RA, increased to 94% on 2 L NC, bibasilar crackles noted, 2+ bilateral pitting edema with tenderness. Abdomen soft/nontender. Concern for CHF exacerbation. Rule out pneumonia. Lower suspicion for DVT/PE as patient is anticoagulated. Unlikely dissection. Low suspicion for severe sepsis at this time Plan: EKG, labs, UA, CXR, venous duplex ultrasound, anticipate admission Please refer to course for remaining clinical decision making, interpretation of labs/imaging results, and discussions with consultants and/or family members. Differential Diagnosis Differential Diagnoses: The differential diagnosis associated with the presentation includes As above Admission/Observation Consideration of admission/observation: Escalation of care including admission/observation considered Consult Healthcare Provider Management of the patient was discussed with: Hospitalist Lab Data [facility] Lab Attestation statement: I reviewed the patient's lab results. 12/16/22 14:46 12/16/22 14:46 Labs: Lab Results 12/16/22 12/16/22 12/16/22 Range/Units 14:46 14:46 14:46 WBC 6.4 (4.8-10.8) X10*3/uL RBC 2.86 L (4.20-5.50) X10*6/uL Hgb 8.1 L (12.0-16.0) g/dl Hct 26.1 L (37.0-47.0) % MCV 91.3 (80.0-98.0) fL MCH 28.3 (27.0-33.0) pg MCHC 31.0 (31.0-35.0) g/dl RDW 16.0 (11.0-16.0) % Plt Count 215 (160-400) X10*3/uL MPV 10.3 (9.4-12.3) fL Immature Gran % (Auto) 0.3 (0.0-0.4) % Neut % (Auto) 69.5 (45-73) % Lymph % (Auto) 16.8 L (20-40) % Archer % (Auto) 10.8 (2-11) % Eos % (Auto) 2.3 (0-4) % Baso % (Auto) 0.3 (0-2) % Lymph # (Auto) 1.1 L (1.2-4.9) X10*3/uL Archer # (Auto) 0.7 (0.1-1.2) X10*3/uL Eos # (Auto) 0.2 (0.0-0.4) X10*3/uL Baso # (Auto) 0.0 (0.0-0.2) X10*3/uL Abs Immat Gran (auto) 0.02 (0.00-0.03) X10*3/uL Absolute Neuts (auto) 4.5 (2.0-8.3) x10*3/uL Absolute Nucleated RBC 0.000 (0.0-0.012) X10*3/uL Nucleated RBC % (auto) 0.0 (0.0-0.2) /100WBC PT 20.6 H (10.0-13.1) SEC INR 1.8 H (0.9-1.1) VBG pH (7.32-7.43) VBG pCO2 mmHg VBG pO2 mmHg VBG HCO3 (22-26) mmol/L VBG O2 Saturation % VBG Base Excess mmol/L Sodium 141 (135-145) mmol/L Potassium 5.3 H D (3.3-5.1) mmol/L Chloride 108 (96-108) mmol/L Carbon Dioxide 26 (22-29) mmol/L Anion Gap 12 (12-20) BUN 29 H (9-16) mg/dL Creatinine 1.44 H (0.5-1.4) mg/dL Estim Creat Clear Calc 33.7 Estimated GFR 35 POC Glucose (60-115) mg/dL Random Glucose 160 H (60-115) mg/dL Calcium 8.1 L (8.4-10.2) mg/dL Magnesium 2.0 (1.6-2.6) mg/dL Total Bilirubin 0.3 (0.0-1.0) mg/dL Direct Bilirubin 0.1 (0.0-0.5) mg/dL AST 6 (5-31) U/L ALT 7 (0-31) U/L Alkaline Phosphatase 95 (39-117) U/L Troponin I High Sens (<3.5-17.0) ng/L B-Natriuretic Peptide (<100) pg/mL Total Protein 5.5 L (6.5-8.0) g/dL Albumin 3.0 L (3.5-5.0) g/dL COVID-19 (IBRAHIMA) (Negative) COVID-19 Clin Com 12/16/22 12/16/22 12/16/22 Range/Units 14:46 14:46 14:47 WBC (4.8-10.8) X10*3/uL RBC (4.20-5.50) X10*6/uL Hgb (12.0-16.0) g/dl Hct (37.0-47.0) % MCV (80.0-98.0) fL MCH (27.0-33.0) pg MCHC (31.0-35.0) g/dl RDW (11.0-16.0) % Plt Count (160-400) X10*3/uL MPV (9.4-12.3) fL Immature Gran % (Auto) (0.0-0.4) % Neut % (Auto) (45-73) % Lymph % (Auto) (20-40) % Archer % (Auto) (2-11) % Eos % (Auto) (0-4) % Baso % (Auto) (0-2) % Lymph # (Auto) (1.2-4.9) X10*3/uL Archer # (Auto) (0.1-1.2) X10*3/uL Eos # (Auto) (0.0-0.4) X10*3/uL Baso # (Auto) (0.0-0.2) X10*3/uL Abs Immat Gran (auto) (0.00-0.03) X10*3/uL Absolute Neuts (auto) (2.0-8.3) x10*3/uL Absolute Nucleated RBC (0.0-0.012) X10*3/uL Nucleated RBC % (auto) (0.0-0.2) /100WBC PT (10.0-13.1) SEC INR (0.9-1.1) VBG pH (7.32-7.43) VBG pCO2 mmHg VBG pO2 mmHg VBG HCO3 (22-26) mmol/L VBG O2 Saturation % VBG Base Excess mmol/L Sodium (135-145) mmol/L Potassium (3.3-5.1) mmol/L Chloride (96-108) mmol/L Carbon Dioxide (22-29) mmol/L Anion Gap (12-20) BUN (9-16) mg/dL Creatinine (0.5-1.4) mg/dL Estim Creat Clear Calc Estimated GFR POC Glucose (60-115) mg/dL Random Glucose (60-115) mg/dL Calcium (8.4-10.2) mg/dL Magnesium (1.6-2.6) mg/dL Total Bilirubin (0.0-1.0) mg/dL Direct Bilirubin (0.0-0.5) mg/dL AST (5-31) U/L ALT (0-31) U/L Alkaline Phosphatase (39-117) U/L Troponin I High Sens 5.5 D (<3.5-17.0) ng/L B-Natriuretic Peptide 209 H (<100) pg/mL Total Protein (6.5-8.0) g/dL Albumin (3.5-5.0) g/dL COVID-19 (IBRAHIMA) Negative (Negative) COVID-19 Clin Com See Note 12/16/22 12/16/22 Range/Units 14:50 15:55 WBC (4.8-10.8) X10*3/uL RBC (4.20-5.50) X10*6/uL Hgb (12.0-16.0) g/dl Hct (37.0-47.0) % MCV (80.0-98.0) fL MCH (27.0-33.0) pg MCHC (31.0-35.0) g/dl RDW (11.0-16.0) % Plt Count (160-400) X10*3/uL MPV (9.4-12.3) fL Immature Gran % (Auto) (0.0-0.4) % Neut % (Auto) (45-73) % Lymph % (Auto) (20-40) % Archer % (Auto) (2-11) % Eos % (Auto) (0-4) % Baso % (Auto) (0-2) % Lymph # (Auto) (1.2-4.9) X10*3/uL Archer # (Auto) (0.1-1.2) X10*3/uL Eos # (Auto) (0.0-0.4) X10*3/uL Baso # (Auto) (0.0-0.2) X10*3/uL Abs Immat Gran (auto) (0.00-0.03) X10*3/uL Absolute Neuts (auto) (2.0-8.3) x10*3/uL Absolute Nucleated RBC (0.0-0.012) X10*3/uL Nucleated RBC % (auto) (0.0-0.2) /100WBC PT (10.0-13.1) SEC INR (0.9-1.1) VBG pH 7.38 (7.32-7.43) VBG pCO2 53 mmHg VBG pO2 32 mmHg VBG HCO3 32 H (22-26) mmol/L VBG O2 Saturation 50.0 % VBG Base Excess 6.1 mmol/L Sodium (135-145) mmol/L Potassium (3.3-5.1) mmol/L Chloride (96-108) mmol/L Carbon Dioxide (22-29) mmol/L Anion Gap (12-20) BUN (9-16) mg/dL Creatinine (0.5-1.4) mg/dL Estim Creat Clear Calc Estimated GFR POC Glucose 146 H (60-115) mg/dL Random Glucose (60-115) mg/dL Calcium (8.4-10.2) mg/dL Magnesium (1.6-2.6) mg/dL Total Bilirubin (0.0-1.0) mg/dL Direct Bilirubin (0.0-0.5) mg/dL AST (5-31) U/L ALT (0-31) U/L Alkaline Phosphatase (39-117) U/L Troponin I High Sens (<3.5-17.0) ng/L B-Natriuretic Peptide (<100) pg/mL Total Protein (6.5-8.0) g/dL Albumin (3.5-5.0) g/dL COVID-19 (IBRAHIMA) (Negative) COVID-19 Clin Com Independent Interpretation I performed an independent interpretation of an: EKG (EKG AFib at a rate of 63. QTC 480. No STEMI.) Radiology Impression Discussion of test interpretation with radiology: I have reviewed the radiologist's reading. External Record Review External record reviewed: Inpatient record, Office record, Outpatient record, Prior outpatient labs, Prior outpatient radiology, Primary care record and Outside ED record Tests considered The following testing was considered but not selected: As above Critical Care Time Critical Care Time Critical Care Time: Yes Total Critical Care Time: 35 Attestation: I have personally provided critical care time exclusive of time spent on separately billable procedures. Time includes review of lab data, radiology results, discussion with consultants, and monitoring for potential decompensation. Intervention performed as documented. Discharge Plan Discharge Clinical Impression: Congestive heart failure, Hypoxia, Chronic kidney disease (CKD) Patient Disposition: Admitted As Inpatient
[2022-12-16 14:57] LABS: VBG Base Excess 6.1 mmol/L; VBG HCO3 32 mmol/L (22-26); VBG pCO2 53 mmHg; VBG pH 7.38 (7.32-7.43); VBG pO2 32 mmHg
[2022-12-16 14:58] LABS: Venous Blood Gas Refer to POC result
[2022-12-16 15:03] LABS: MANUAL DIFF FLAG NO
[2022-12-16 15:05] LABS: Basophils Percent Auto 0.3 % (0-2); Eosinophils Absolute Auto 0.2 X10*3/uL (0.0-0.4); Eosinophils Percent Auto 2.3 % (0-4); Hematocrit 26.1 % (37.0-47.0); Hemoglobin 8.1 g/dl (12.0-16.0); Imm Gran Abs Auto 0.02 X10*3/uL (0.00-0.03); Imm Gran Pct Auto 0.3 % (0.0-0.4); Lymphocytes Absolute Auto 1.1 X10*3/uL (1.2-4.9); Lymphocytes Percent Auto 16.8 % (20-40); Mean Corpuscular Hemoglobin 28.3 pg (27.0-33.0); Mean Corpuscular Volume 91.3 fL (80.0-98.0); Mean Platelet Volume 10.3 fL (9.4-12.3); Monocytes Absolute Auto 0.7 X10*3/uL (0.1-1.2); Monocytes Percent Auto 10.8 % (2-11); Neutrophils Absolute Auto 4.5 x10*3/uL (2.0-8.3); Neutrophils Percent Auto 69.5 % (45-73); Platelet Count 215 X10*3/uL (160-400); Red Blood Count 2.86 X10*6/uL (4.20-5.50); White Blood Count 6.4 X10*3/uL (4.8-10.8)
--- NOTE | 2022-12-16 15:05 | PC.NURSE ---
Ultrasound at bedside.
[2022-12-16 15:19] LABS: INTERNATIONAL NORM RATIO 1.8 (0.9-1.1); Prothrombin Time 20.6 SEC (10.0-13.1)
[2022-12-16 15:23] LABS: Alanine Aminotransferase 7 U/L (0-31); Alkaline Phosphatase 95 U/L (39-117); Anion Gap 12 (12-20); Aspartate Amino Transferase 6 U/L (5-31); Bilirubin Direct 0.1 mg/dL (0.0-0.5); Bilirubin Total 0.3 mg/dL (0.0-1.0); Blood Urea Nitrogen 29 mg/dL (9-16); Calcium 8.1 mg/dL (8.4-10.2); Carbon Dioxide 26 mmol/L (22-29); Chloride 108 mmol/L (96-108); Creatinine Clr Calc Pharmacy 33.7; Estimated Glomerular Filt Rate 35; Glucose Random 160 mg/dL (60-115); Potassium 5.3 mmol/L (3.3-5.1); Sodium 141 mmol/L (135-145); Total Protein 5.5 g/dL (6.5-8.0)
[2022-12-16 15:30] LABS: Troponin-I High Sensitivity 5.5 ng/L (<3.5-17.0)
[2022-12-16 15:35] LABS: B Type Natriuretic Peptide 209 pg/mL (<100)
[2022-12-16 16:00] LABS: Glucose, Whole Blood 146 mg/dL (60-115)
[2022-12-16 16:12] LABS: COVID-19 Test Negative (Negative); IDNOW Serial# 08D9AD1C
[2022-12-16 16:40] LABS: OBS Int Ctl Valid YES; OBS1 POSITIVE (NEGATIVE)
--- NOTE | 2022-12-16 16:46 | PHA.MEDREC ---
Pharmacy Consult ? Medication Reconciliation Pharmacy has completed the medication reconciliation. Spoke to patient to confirm meds.
--- NOTE | 2022-12-16 16:50 | PM.IMHP ---
History of Present Illness Date of Service: 12/16/22 Chief Complaint: Shortness of breath 77-year-old female with history of HFpEF, diabetes, pulmonary HTN, T2DM, chronic back/neck pain secondary to spinal stenosis, paroxysmal atrial fibrillation on eliquis, hypertension who presents to the emergency department with shortness of breath. She was recently hospitalized between October and November 10, 2022 with CHF, and PNA complicated by acute respiratory failure and required ICU level of with BiPAP use and diuretic drip. She is back to the ED with increasing weakness, RAMIREZ, sob and increased leg edema, weight gain, dry cough. CXR shows pulmonary edema, leg US show no DVT. [facility] Medical History CKD (chronic kidney disease), stage IV Depressive disorder Diabetes Diastolic CHF HTN (hypertension) PAF (paroxysmal atrial fibrillation) Spinal stenosis Thyroid activity decreased Family History Other Diabetes Social History Household Members: Spouse and Family Housing: House Do you presently have visiting nurse or other home services: Yes Alcohol intake: never Patient Tobacco Use Status: Never used Tobacco Smoked in Last 30 Days: No Second Hand Smoke Exposure: No Use of substances other than those prescribed or required for medical reasons: No Currently Displaying Signs/Symptoms of Drug Intoxication Withdrawal: No Have you been hit, kicked, punched, or otherwise hurt by someone within the past year? If so, by whom?: No Do you feel safe in your current relationship?: Yes Is there a partner from a previous relationship who is making you feel unsafe now?: No Are you made to feel afraid or neglected: No Advance Directives: Yes Advance Directives on File: Yes Advance Directives Date on File: 08/22/20 Do you have thoughts of harming others: None Do you have a plan to hurt others: No Plan Nutrition Risks: Difficulty swallowing Patient : No service: No Current occupational status: retired Meds Allergies Allergy/AdvReac Type Severity Reaction Status Date / Time levofloxacin [From LEVAQUIN] AdvReac Mild flushed Verified 11/27/22 08:31 Active Medications: Current Medications Amiodarone HCl (Amiodarone Hcl 200 Mg Tablet) 200 mg PO DAILY [facility] Amlodipine Besylate (Amlodipine Besylate 5 Mg Tablet) 5 mg PO DAILY [facility]; Protocol Apixaban (Apixaban 5 Mg Tablet) 5 mg PO BID [facility] Diphenhydramine HCl (Diphenhydramine Hcl 25 Mg Capsule) 25 mg PO DAILY PRN PRN Reason: Allergic Symptoms Docusate Sodium (Docusate Sodium 100 Mg Capsule) 100 mg PO DAILY PRN PRN Reason: Constipation Insulin Human Lispro (Insulin Lispro 100 Unit/Ml 3 Ml Vial) 0 unit SUBCUT QIDACHS [facility]; Protocol Isosorbide Mononitrate (Isosorbide Mononitrate 60 Mg Tab.Er.24h) 60 mg PO DAILY [facility]; Protocol Levothyroxine Sodium (Levothyroxine Sodium 50 Mcg Tablet) 50 mcg PO DAILY@0600 [facility] Omeprazole (Omeprazole 20 Mg Capsule.Dr) 20 mg PO BID [facility] Sucralfate (Sucralfate 1 Gm Tablet) 1 gm PO QID [facility] Home Medications Medication Instructions Recorded Confirmed Last Taken Type levothyroxine 50 mcg tablet 50 mcg PO DAILY@0600 10/11/22 12/16/22 12/16/22 06:00 History diphenhydramine HCl 25 mg capsule 25 mg DAILY PRN Allergic Symptoms 10/17/22 12/16/22 Unknown History (Benadryl) docusate sodium 100 mg capsule 100 mg PO DAILY PRN Constipation 11/27/22 12/16/22 Unknown History (Colace) metoclopramide HCl 5 mg tablet 5 mg PO QID 11/27/22 12/16/22 12/16/22 09:00 History acetaminophen 325 mg tablet 650 mg PO Q6H PRN Pain 12/16/22 12/16/22 Unknown History (Tylenol) oxycodone 10 mg tablet 10 mg PO QID PRN Pain 12/16/22 12/16/22 Unknown History sucralfate 1 gram tablet 1 g PO QID 12/16/22 12/16/22 12/16/22 09:00 History trazodone 50 mg tablet 50 - 100 mg PO BEDTIME PRN Insomnia 12/16/22 12/16/22 Unknown History Physical Exam Vital Signs and Narrative: Vital Signs: Last Vital Signs Temp 97.5 F 12/16/22 16:03 Pulse 60 12/16/22 16:03 Resp 14 12/16/22 16:03 BP 138/47 L 12/16/22 16:03 Pulse Ox 96 12/16/22 16:03 O2 Del Method Nasal Cannula 12/16/22 16:03 O2 Flow Rate 2 12/16/22 16:03 BMI result Body Mass Index 38.9 Const: Other: Constitutional: Alert, in no distress, overweight. Mental Status: Oriented to person, place and time. Eyes: Pupils are equal, round and reactive to light. Ear, Nose and Throat: Oropharynx clear, mucous membranes moist. Ears and nose without eformities. Trachea midline. Respiratory: Clear to auscultation. No wheezing, rales or rhonchi. Cardiovascular: S1 S2, iregular iregular, 3+ pedal edam Gastrointestinal: Abdomen soft, non-tender, non-distended. Normal bowel sounds.? Neurologic: Cranial nerves II-XII grossly intact. No focal neurological deficits. Moves all extremities spontaneously.? Skin: No rashes or lesions.? Musculoskeletal: No cyanosis or clubbing. Psychiatric: Normal mood and affect? Results Labs 12/16/22 14:46 12/16/22 14:46 Labs: Laboratory Results - last 24 hr 12/16/22 12/16/22 12/16/22 14:46 14:46 14:46 MCV 91.3 MCH 28.3 MCHC 31.0 RDW 16.0 Plt Count 215 MPV 10.3 Immature Gran % (Auto) 0.3 Neut % (Auto) 69.5 Lymph % (Auto) 16.8 L Bea[place]gard % (Auto) 10.8 Eos % (Auto) 2.3 Baso % (Auto) 0.3 Lymph # (Auto) 1.1 L [place]gard # (Auto) 0.7 Eos # (Auto) 0.2 Baso # (Auto) 0.0 Abs Immat Gran (auto) 0.02 Absolute Neuts (auto) 4.5 Absolute Nucleated RBC 0.000 Nucleated RBC % (auto) 0.0 PT 20.6 H INR 1.8 H VBG pH VBG pCO2 VBG pO2 VBG HCO3 VBG O2 Saturation VBG Base Excess Anion Gap 12 Estim Creat Clear Calc 33.7 Estimated GFR 35 POC Glucose Random Glucose 160 H Calcium 8.1 L Magnesium 2.0 Total Bilirubin 0.3 Direct Bilirubin 0.1 AST 6 ALT 7 Alkaline Phosphatase 95 Troponin I High Sens B-Natriuretic Peptide Total Protein 5.5 L Albumin 3.0 L Stool Occult Blood COVID-19 (IBRAHIMA) COVID-19 [employer] Com 12/16/22 12/16/22 12/16/22 14:46 14:46 14:47 MCV MCH MCHC RDW Plt Count MPV Immature Gran % (Auto) Neut % (Auto) Lymph % (Auto) Bea[place]gard % (Auto) Eos % (Auto) Baso % (Auto) Lymph # (Auto) [place] # (Auto) Eos # (Auto) Baso # (Auto) Abs Immat Gran (auto) Absolute Neuts (auto) Absolute Nucleated RBC Nucleated RBC % (auto) PT INR VBG pH VBG pCO2 VBG pO2 VBG HCO3 VBG O2 Saturation VBG Base Excess Anion Gap Estim Creat Clear Calc Estimated GFR POC Glucose Random Glucose Calcium Magnesium Total Bilirubin Direct Bilirubin AST ALT Alkaline Phosphatase Troponin I High Sens 5.5 D B-Natriuretic Peptide 209 H Total Protein Albumin Stool Occult Blood COVID-19 (IBRAHIMA) Negative COVID-19 [facility] See Note 12/16/22 12/16/22 12/16/22 14:50 15:55 16:27 MCV MCH MCHC RDW Plt Count MPV Immature Gran % (Auto) Neut % (Auto) Lymph % (Auto) Bea[place]gard % (Auto) Eos % (Auto) Baso % (Auto) Lymph # (Auto) [place] # (Auto) Eos # (Auto) Baso # (Auto) Abs Immat Gran (auto) Absolute Neuts (auto) Absolute Nucleated RBC Nucleated RBC % (auto) PT INR VBG pH 7.38 VBG pCO2 53 VBG pO2 32 VBG HCO3 32 H VBG O2 Saturation 50.0 VBG Base Excess 6.1 Anion Gap Estim Creat Clear Calc Estimated GFR POC Glucose 146 H Random Glucose Calcium Magnesium Total Bilirubin Direct Bilirubin AST ALT Alkaline Phosphatase Troponin I High Sens B-Natriuretic Peptide Total Protein Albumin Stool Occult Blood POSITIVE COVID-19 (IBRAHIMA) COVID-19 [facility] Radiologist's Impressions: Impressions Chest X-Ray 12/16/22 14:56 IMPRESSION: Mild CHF with interval resolution of previously noted bibasilar opacities. Venous Duplex 12/16/22 15:20 IMPRESSION: No DVT demonstrated in the bilateral lower extremity. Assessment and Plan (1) Congestive heart failure: Status: Acute Plan ? 77-year-old female with history of HFpEF, T2DM, HTN, CKD 3/4,? chronic back/neck pain secondary to spinal stenosis who presents to the emergency department with complaints of shortness of breath, fatigue and found to have acute on chronic heart failure acute on chronic HFpEF--Treat with IV Laisx 40 bid, follow I/O, low sodium diet, if not improving cardiology eval. CKD --stable, HTN continue metoprolol, norvasc Morbid obesity BMI 38.8 weight loss encouraged T2DM hold glimepiride, pioglitazone SSI, POCs, ADA diet hypothyroid continue synthroid chronic pain continue gabapentin gerd continue omeprazole dvt ppx -eliquis code status - Full code patient requires at least 2 midnight stay in the hospital for management of respiratory failure, CHF requiring IV diuresis, Time Spent With Patient Time: Total time managing care of this patient today ____ minutes. Quality Stroke Does the patient have a stroke diagnosis?: No VTE Prior VTE?: No VTE Risk Level:: Medical - moderate - high VTE Device Contraindication: Treatment Not Indicated VTE Drug Contraindication: N/A - Med Ordered
[2022-12-16 17:43] LABS: Glucose, Whole Blood 128 mg/dL (60-115)
[2022-12-16] MEDS: Sucralfate 1 GM TABLET PO ×2 (17:48→21:41)
[2022-12-16] MEDS: Sodium Zirconium Cyclosilicate 5 GM POWD.PACK PO (17:48)
[2022-12-16] MEDS: Furosemide 40 MG/4 ML VIAL IVPUSH (17:48)
[2022-12-16 18:36] LABS: Appearance Urine Clear; Color Urine Yellow; Glucose Urine UA Negative (Negative); Leukocyte Esterase Urine Negative (Negative); Nitrite Urine Negative (Negative); UMIC TRIGGER UACC YES; Urine Blood Negative (Negative); Urine Ketones Negative (Negative); Urine Protein 30 (1+) mg/dL (Neg-Trace)
[2022-12-16 18:43] LABS: Bacteria Urine None Seen (None Seen); Hyaline Casts Urine 0-2 /LPF (0-2); RBC Urine 0-2 /HPF (0-2); Squamous Epithelial Cell Urine 0-2 /HPF (0-2); WBC Urine 0-5 /HPF (0-5)
[2022-12-16 19:47] LABS: Glucose, Whole Blood 139 mg/dL (60-115)
[2022-12-16] MEDS: ondansetron HCL 4 MG/2 ML VIAL IVPUSH (19:48)
[2022-12-16] MEDS: oxyCODONE HCl Immed Release 5 MG TABLET 10 MG PO (19:48)
[2022-12-16] MEDS: Apixaban 5 MG TABLET PO (21:41)
--- NOTE | 2022-12-16 21:57 | MHC.CM.PN ---
IMM 12/16. A&Ox4. Very pleasant woman. Lives with and 2 sisters in her home. Uses a wheeled walker and rollator. Has [employer] weekly through [facility]-but hasn't come for 3 weeks. Has [facility]. D/C from [facility] 2 weeks ago. Has [facility] for SN, PT, OT and [employer] for showers. Was at [facility] from 10/17-11/07 for resp failure. Unvaccinated. No HCP on file. HCP reviewed, completed and signed. Copies given. Uploaded into [facility] Port and [facility] Expanse. HCP#1/ Hesham Alexis ([phone]) and HCP#2/niece Christina Rios. Thrive assessment-concerns regarding utilities and food. 413 CARES given. Contact information for [facility], [facility] and [employer] fuel assistance. D/C plan: Home with existing services. Referral placed in Care Port. CM will follow for discharge planning.
[2022-12-17] VITALS (7 sets, daily range): BP systolic 106–174; BP diastolic 50–69; PULSE 56–74; RESP 16–20; TEMP 36.2–36.6; O2SAT 93–98
[2022-12-17] MEDS: oxyCODONE HCl Immed Release 5 MG TABLET 10 MG PO ×4 (02:20→22:31)
[2022-12-17] MEDS: 0.9 % Sodium Chloride Flush 3 ML SYRINGE IVFLUSH ×4 (02:21→19:49)
[2022-12-17] MEDS: ondansetron HCL 4 MG/2 ML VIAL IVPUSH ×2 (03:20→22:12)
[2022-12-17 06:01] LABS: Anion Gap 11 (12-20); Blood Urea Nitrogen 26 mg/dL (9-16); Calcium 8.1 mg/dL (8.4-10.2); Carbon Dioxide 29 mmol/L (22-29); Chloride 104 mmol/L (96-108); Creatinine Clr Calc Pharmacy 32.4; Estimated Glomerular Filt Rate 34; Glucose Random 143 mg/dL (60-115); Sodium 140 mmol/L (135-145)
[2022-12-17] MEDS: Levothyroxine Sodium 50 MCG TABLET PO (06:16)
[2022-12-17] MEDS: Omeprazole 20 MG CAPSULE.DR PO ×2 (06:16→16:29)
[2022-12-17 08:25] LABS: Glucose, Whole Blood 128 mg/dL (60-115)
--- NOTE | 2022-12-17 08:43 | P.PNIM_ITS ---
Subjective Subjective Date of Service: 12/17/22 Interval History: f/u on heart failure interval history: i feel better and wondering why I was not on water pill Physical Exam Vital Signs: Vital Signs: Last Vital Signs Temp 97.4 F 12/17/22 07:20 Pulse 62 12/17/22 07:20 Resp 20 12/17/22 07:20 BP 130/60 12/17/22 07:20 Pulse Ox 96 12/17/22 07:20 O2 Del Method Nasal Cannula 12/17/22 07:20 O2 Flow Rate 2 12/17/22 07:20 BMI result Body Mass Index 38.9 Const: Other: General: AO X 3, no acute distress Resp: CTA bilateral CVS: S1,S2,iregular iregular, 2 +pedal edema GI: +BS, NT, no distention Skin: No rash Neuro: motor grossly intact Psych: appropriate affect Objective Data Active Medications Acetaminophen (Acetaminophen 325 Mg Tablet) 650 mg PO Q6H PRN PRN Reason: Pain, Mild (Pain Scale 1-3) Amiodarone HCl (Amiodarone Hcl 200 Mg Tablet) 200 mg PO DAILY COUNT INCLUDES THE [facility] Amlodipine Besylate (Amlodipine Besylate 5 Mg Tablet) 5 mg PO DAILY COUNT INCLUDES THE [facility]; Protocol Apixaban (Apixaban 5 Mg Tablet) 5 mg PO BID COUNT INCLUDES THE [facility] Last Admin: 12/16/22 21:41 Dose: 5 mg Documented By: DORA Dextrose (Dextrose 50 % 25 Gm/50 Ml Syringe) 25 gm IVPUSH Q15M PRN; Protocol PRN Reason: per Hypoglycemia Standing Ord. Diphenhydramine HCl (Diphenhydramine Hcl 25 Mg Capsule) 25 mg PO DAILY PRN PRN Reason: Allergic Symptoms Docusate Sodium (Docusate Sodium 100 Mg Capsule) 100 mg PO DAILY PRN PRN Reason: Constipation Furosemide (Furosemide 40 Mg/4 Ml Vial) 40 mg IVPUSH BID@0900,1800 COUNT INCLUDES THE [facility]; Protocol Glucose (Glucose Gel 15 Gm Gel..Gram.) 15 gm PO Q15M PRN; Protocol PRN Reason: per Hypoglycemia Standing Ord. Insulin Human Lispro (Insulin Lispro 100 Unit/Ml 3 Ml Vial) 0 unit SUBCUT QIDACHS COUNT INCLUDES THE [facility]; Protocol Last Admin: 12/16/22 21:37 Dose: Not Given Documented By: DORA Non-Admin Reason: See Note Comments: poc 139 Insulin Human Lispro (Insulin Lispro 100 Unit/Ml 3 Ml Vial) 0 unit SUBCUT QIDACHS COUNT INCLUDES THE [facility]; Protocol Isosorbide Mononitrate (Isosorbide Mononitrate 60 Mg Tab.Er.24h) 60 mg PO DAILY COUNT INCLUDES THE [facility]; Protocol Levothyroxine Sodium (Levothyroxine Sodium 50 Mcg Tablet) 50 mcg PO DAILY@0600 COUNT INCLUDES THE [facility] Last Admin: 12/17/22 06:16 Dose: 50 mcg Documented By: KELLI Omeprazole (Omeprazole 20 Mg Capsule.Dr) 20 mg PO BID@0630,1630 COUNT INCLUDES THE [facility] Last Admin: 12/17/22 06:16 Dose: 20 mg Documented By: KELLI Ondansetron HCl (Ondansetron Hcl 4 Mg/2 Ml Vial) 4 mg IVPUSH Q8H PRN PRN Reason: Nausea and Vomiting Last Admin: 12/17/22 03:20 Dose: 4 mg Documented By: KELLI Sodium Chloride (0.9 % Sodium Chloride Flush 3 Ml Syringe) 3 ml IVFLUSH QSHIFT COUNT INCLUDES THE [facility] Last Admin: 12/17/22 02:21 Dose: 3 ml Documented By: KELLI Sucralfate (Sucralfate 1 Gm Tablet) 1 gm PO QID COUNT INCLUDES THE [facility] Last Admin: 12/16/22 21:41 Dose: 1 gm Documented By: DORA Labs 12/16/22 14:46 12/17/22 05:21 Labs: Laboratory Results - last 24 hr 12/16/22 12/16/22 12/16/22 14:46 14:46 14:46 MCV 91.3 MCH 28.3 MCHC 31.0 RDW 16.0 Plt Count 215 MPV 10.3 Immature Gran % (Auto) 0.3 Neut % (Auto) 69.5 Lymph % (Auto) 16.8 L Travis % (Auto) 10.8 Eos % (Auto) 2.3 Baso % (Auto) 0.3 Lymph # (Auto) 1.1 L Travis # (Auto) 0.7 Eos # (Auto) 0.2 Baso # (Auto) 0.0 Abs Immat Gran (auto) 0.02 Absolute Neuts (auto) 4.5 Absolute Nucleated RBC 0.000 Nucleated RBC % (auto) 0.0 PT 20.6 H INR 1.8 H VBG pH VBG pCO2 VBG pO2 VBG HCO3 VBG O2 Saturation VBG Base Excess Anion Gap 12 Estim Creat Clear Calc 33.7 Estimated GFR 35 POC Glucose Random Glucose 160 H Calcium 8.1 L Magnesium 2.0 Total Bilirubin 0.3 Direct Bilirubin 0.1 AST 6 ALT 7 Alkaline Phosphatase 95 Troponin I High Sens B-Natriuretic Peptide Total Protein 5.5 L Albumin 3.0 L Urine Color Urine Appearance Urine pH Ur Specific [place] Urine Protein Urine Glucose (UA) Urine Ketones Urine Blood Urine Nitrite Ur Leukocyte Esterase Urine RBC Urine WBC Ur Squamous Epith Cells Urine Bacteria Hyaline Casts Stool Occult Blood COVID-19 ([facility]HIMA) COVID-19 Clin Com 12/16/22 12/16/22 12/16/22 14:46 14:46 14:47 MCV MCH MCHC RDW Plt Count MPV Immature Gran % (Auto) Neut % (Auto) Lymph % (Auto) Travis % (Auto) Eos % (Auto) Baso % (Auto) Lymph # (Auto) Travis # (Auto) Eos # (Auto) Baso # (Auto) Abs Immat Gran (auto) Absolute Neuts (auto) Absolute Nucleated RBC Nucleated RBC % (auto) PT INR VBG pH VBG pCO2 VBG pO2 VBG HCO3 VBG O2 Saturation VBG Base Excess Anion Gap Estim Creat Clear Calc Estimated GFR POC Glucose Random Glucose Calcium Magnesium Total Bilirubin Direct Bilirubin AST ALT Alkaline Phosphatase Troponin I High Sens 5.5 D B-Natriuretic Peptide 209 H Total Protein Albumin Urine Color Urine Appearance Urine pH Ur Specific [place] Urine Protein Urine Glucose (UA) Urine Ketones Urine Blood Urine Nitrite Ur Leukocyte Esterase Urine RBC Urine WBC Ur Squamous Epith Cells Urine Bacteria Hyaline Casts Stool Occult Blood COVID-19 ([facility]RAHIMA) Negative COVID-19 Clin Com See Note 12/16/22 12/16/22 12/16/22 14:50 15:55 16:27 MCV MCH MCHC RDW Plt Count MPV Immature Gran % (Auto) Neut % (Auto) Lymph % (Auto) Travis % (Auto) Eos % (Auto) Baso % (Auto) Lymph # (Auto) Travis # (Auto) Eos # (Auto) Baso # (Auto) Abs Immat Gran (auto) Absolute Neuts (auto) Absolute Nucleated RBC Nucleated RBC % (auto) PT INR VBG pH 7.38 VBG pCO2 53 VBG pO2 32 VBG HCO3 32 H VBG O2 Saturation 50.0 VBG Base Excess 6.1 Anion Gap Estim Creat Clear Calc Estimated GFR POC Glucose 146 H Random Glucose Calcium Magnesium Total Bilirubin Direct Bilirubin AST ALT Alkaline Phosphatase Troponin I High Sens B-Natriuretic Peptide Total Protein Albumin Urine Color Urine Appearance Urine pH Ur Specific [place] Urine Protein Urine Glucose (UA) Urine Ketones Urine Blood Urine Nitrite Ur Leukocyte Esterase Urine RBC Urine WBC Ur Squamous Epith Cells Urine Bacteria Hyaline Casts Stool Occult Blood POSITIVE COVID-19 ([facility]IMA) COVID-19 Clin Com 12/16/22 12/16/22 12/16/22 17:36 18:24 19:42 MCV MCH MCHC RDW Plt Count MPV Immature Gran % (Auto) Neut % (Auto) Lymph % (Auto) Travis % (Auto) Eos % (Auto) Baso % (Auto) Lymph # (Auto) Travis # (Auto) Eos # (Auto) Baso # (Auto) Abs Immat Gran (auto) Absolute Neuts (auto) Absolute Nucleated RBC Nucleated RBC % (auto) PT INR VBG pH VBG pCO2 VBG pO2 VBG HCO3 VBG O2 Saturation VBG Base Excess Anion Gap Estim Creat Clear Calc Estimated GFR POC Glucose 128 H 139 H Random Glucose Calcium Magnesium Total Bilirubin Direct Bilirubin AST ALT Alkaline Phosphatase Troponin I High Sens B-Natriuretic Peptide Total Protein Albumin Urine Color Yellow Urine Appearance Clear Urine pH 5.0 Ur Specific [place] 1.020 Urine Protein 30 (1+) H Urine Glucose (UA) Negative Urine Ketones Negative Urine Blood Negative Urine Nitrite Negative Ur Leukocyte Esterase Negative Urine RBC 0-2 Urine WBC 0-5 Ur Squamous Epith Cells 0-2 Urine Bacteria None Seen Hyaline Casts 0-2 Stool Occult Blood COVID-19 ([facility]RAHIMA) COVID-19 [facility] Com 12/17/22 12/17/22 05:21 08:22 MCV MCH MCHC RDW Plt Count MPV Immature Gran % (Auto) Neut % (Auto) Lymph % (Auto) Travis % (Auto) Eos % (Auto) Baso % (Auto) Lymph # (Auto) Travis # (Auto) Eos # (Auto) Baso # (Auto) Abs Immat Gran (auto) Absolute Neuts (auto) Absolute Nucleated RBC Nucleated RBC % (auto) PT INR VBG pH VBG pCO2 VBG pO2 VBG HCO3 VBG O2 Saturation VBG Base Excess Anion Gap 11 L Estim Creat Clear Calc 32.4 Estimated GFR 34 POC Glucose 128 H Random Glucose 143 H Calcium 8.1 L Magnesium Total Bilirubin Direct Bilirubin AST ALT Alkaline Phosphatase Troponin I High Sens B-Natriuretic Peptide Total Protein Albumin Urine Color Urine Appearance Urine pH Ur Specific [place] Urine Protein Urine Glucose (UA) Urine Ketones Urine Blood Urine Nitrite Ur Leukocyte Esterase Urine RBC Urine WBC Ur Squamous Epith Cells Urine Bacteria Hyaline Casts Stool Occult Blood COVID-19 ([facility]HIMA) COVID-19 Clin Com Assessment and Plan (1) Congestive heart failure: Status: Acute Plan ? 77-year-old female with history of HFpEF, T2DM, HTN, CKD 3/4,? chronic back/neck pain secondary to spinal stenosis who presents to the emergency department with complaints of shortness of breath, fatigue and found to have acute on chronic heart failure acute on chronic HFpEF--Treat with IV Laisx 40 bid, follow I/O, low sodium diet, if not improving cardiology eval. CKD 4 --stable, HTN continue metoprolol, norvasc Morbid obesity BMI 38.8 weight loss encouraged T2DM hold glimepiride, pioglitazone SSI, POCs, ADA diet hypOthyroid continue synthroid chronic pain continue gabapentin gerd continue omeprazole weakness: pt eval before dc dvt ppx -eliquis code status - Full code Need for inpatient: CHF requiring IV diuresis and monitoring for response Time Spent With Patient Time: Total time managing care of this patient today ____ minutes. Quality Stroke Does the patient have a stroke diagnosis?: No VTE Prior VTE?: No VTE Risk Level:: Medical - moderate - high VTE Device Contraindication: Treatment Not Indicated VTE Drug Contraindication: N/A - Med Ordered
[2022-12-17] MEDS: Apixaban 5 MG TABLET PO ×2 (09:43→19:49)
[2022-12-17] MEDS: Acetaminophen 325 MG TABLET 650 MG PO (09:43)
[2022-12-17] MEDS: Sucralfate 1 GM TABLET PO ×4 (09:43→19:49)
[2022-12-17] MEDS: Isosorbide Mononitrate 60 MG TAB.ER.24H PO (09:43)
[2022-12-17] MEDS: Furosemide 40 MG/4 ML VIAL IVPUSH ×2 (09:43→17:33)
[2022-12-17] MEDS: amLODIPine Besylate 5 MG TABLET PO (09:44)
[2022-12-17] MEDS: Metoclopramide HCl 5 MG TABLET PO ×4 (10:16→19:49)
[2022-12-17 11:12] LABS: Glucose, Whole Blood 170 mg/dL (60-115)
[2022-12-17] MEDS: Insulin Lispro 100 UNIT/ML 3 ML VIAL SUBCUT (12:34)
--- NOTE | 2022-12-17 15:14 | MHC.CM.PN ---
EMR REVIEWED AND PER MD ROUNDS, PT IS NOT MEDICALLY CLEARED FOR DC (IV DIURETICS/CHF MANAGEMENT) CM WILL CONTINUE TO FOLLOW FOR DC PLAN/NEEDS.
[2022-12-17 17:00] LABS: Glucose, Whole Blood 77 mg/dL (60-115)
[2022-12-17 19:56] LABS: Glucose, Whole Blood 213 mg/dL (60-115)
[2022-12-18] VITALS (8 sets, daily range): BP systolic 130–163; BP diastolic 50–80; PULSE 66–79; RESP 15–20; TEMP 36.2–36.9; O2SAT 87–98
[2022-12-18] MEDS: Acetaminophen 325 MG TABLET 650 MG PO ×2 (01:48→09:06)
--- NOTE | 2022-12-18 03:26 | PC.NURSE ---
Pt states she woke up feeling shaky. No tremors noted. Refused Insulin coverage last night because she states she plummets in am. POC checked, 116. HR, 70's. Will continue to monitor.
[2022-12-18 03:28] LABS: Glucose, Whole Blood 116 mg/dL (60-115)
[2022-12-18] MEDS: oxyCODONE HCl Immed Release 5 MG TABLET 10 MG PO ×3 (05:51→16:51)
[2022-12-18] MEDS: Omeprazole 20 MG CAPSULE.DR PO ×2 (05:52→16:51)
[2022-12-18] MEDS: Levothyroxine Sodium 50 MCG TABLET PO (05:52)
[2022-12-18 07:08] LABS: Glucose, Whole Blood 101 mg/dL (60-115)
--- NOTE | 2022-12-18 08:51 | P.PNIM_ITS ---
Subjective Subjective Date of Service: 12/18/22 Interval History: f/u on heart failure interval history: feels much better, leg are much less swollen, noted bradycardia Physical Exam Vital Signs: Vital Signs: Last Vital Signs Temp 97.8 F 12/18/22 07:25 Pulse 79 12/18/22 07:25 Resp 20 12/18/22 07:25 BP 130/50 L 12/18/22 07:25 Pulse Ox 98 12/18/22 07:25 O2 Del Method Nasal Cannula 12/18/22 07:25 O2 Flow Rate 1 12/18/22 07:25 BMI result Body Mass Index 38.9 Const: Other: General: AO X 3, no acute distress Resp: CTA bilateral CVS: S1,S2,iregular iregular, 2 +pedal edema GI: +BS, NT, no distention Skin: No rash Neuro: motor grossly intact Psych: appropriate affect Objective Data Active Medications Acetaminophen (Acetaminophen 325 Mg Tablet) 650 mg PO Q6H PRN PRN Reason: Pain, Mild (Pain Scale 1-3) Last Admin: 12/18/22 01:48 Dose: 650 mg Documented By: TIMO Amiodarone HCl (Amiodarone Hcl 200 Mg Tablet) 200 mg PO DAILY [facility] Last Admin: 12/17/22 09:44 Dose: Not Given Documented By: SORIN Non-Admin Reason: Physician Held Med Amlodipine Besylate (Amlodipine Besylate 5 Mg Tablet) 5 mg PO DAILY [facility]; Protocol Last Admin: 12/17/22 09:44 Dose: 5 mg Documented By: SORIN Apixaban (Apixaban 5 Mg Tablet) 5 mg PO BID [facility] Last Admin: 12/17/22 19:49 Dose: 5 mg Documented By: RAY Dextrose (Dextrose 50 % 25 Gm/50 Ml Syringe) 25 gm IVPUSH Q15M PRN; Protocol PRN Reason: per Hypoglycemia Standing Ord. Diphenhydramine HCl (Diphenhydramine Hcl 25 Mg Capsule) 25 mg PO DAILY PRN PRN Reason: Allergic Symptoms Docusate Sodium (Docusate Sodium 100 Mg Capsule) 100 mg PO DAILY PRN PRN Reason: Constipation Furosemide (Furosemide 40 Mg/4 Ml Vial) 40 mg IVPUSH BID@0900,1800 [facility]; Protocol Last Admin: 12/17/22 17:33 Dose: 40 mg Documented By: SORIN Glucose (Glucose Gel 15 Gm Gel..Gram.) 15 gm PO Q15M PRN; Protocol PRN Reason: per Hypoglycemia Standing Ord. Insulin Human Lispro (Insulin Lispro 100 Unit/Ml 3 Ml Vial) 0 unit SUBCUT [facility]; Protocol Last Admin: 12/18/22 08:32 Dose: Not Given Documented By: BRIE Non-Admin Reason: No Insulin Coverage Insulin Human Lispro (Insulin Lispro 100 Unit/Ml 3 Ml Vial) 0 unit SUBCUT [facility]; Protocol Last Admin: 12/17/22 19:49 Dose: Not Given Documented By: RAY Non-Admin Reason: Patient Refused Isosorbide Mononitrate (Isosorbide Mononitrate 60 Mg Tab.Er.24h) 60 mg PO DAILY [facility]; Protocol Last Admin: 12/17/22 09:43 Dose: 60 mg Documented By: SORIN Levothyroxine Sodium (Levothyroxine Sodium 50 Mcg Tablet) 50 mcg PO DAILY@0600 [facility] Last Admin: 12/18/22 05:52 Dose: 50 mcg Documented By: RAY Metoclopramide HCl (Metoclopramide Hcl 5 Mg Tablet) 5 mg PO QID [facility] Last Admin: 12/17/22 19:49 Dose: 5 mg Documented By: RAY Omeprazole (Omeprazole 20 Mg Capsule.Dr) 20 mg PO BID@0630,1630 [facility] Last Admin: 12/18/22 05:52 Dose: 20 mg Documented By: RAY Ondansetron HCl (Ondansetron Hcl 4 Mg/2 Ml Vial) 4 mg IVPUSH Q8H PRN PRN Reason: Nausea and Vomiting Last Admin: 12/17/22 22:12 Dose: 4 mg Documented By: RAY Oxycodone HCl (Oxycodone Hcl Immed Release 5 Mg Tablet) 10 mg PO QID PRN PRN Reason: Pain, Severe (Pain Scale 7-10) Last Admin: 12/18/22 05:51 Dose: 10 mg Documented By: RAY Sodium Chloride (0.9 % Sodium Chloride Flush 3 Ml Syringe) [facility] Last Admin: 12/17/22 19:49 Dose: 3 ml Documented By: RAY Sucralfate (Sucralfate 1 Gm Tablet) 1 gm PO QID [facility] Last Admin: 12/17/22 19:49 Dose: 1 gm Documented By: RAY Trazodone HCl (Trazodone Hcl 50 Mg Tablet) 50 - 100 mg PO BEDTIME PRN PRN Reason: Insomnia Labs 12/16/22 14:46 12/17/22 05:21 Labs: Laboratory Results - last 24 hr 12/17/22 12/17/22 12/17/22 11:05 16:36 19:42 POC Glucose 170 H 77 213 H 12/18/22 12/18/22 03:23 07:01 POC Glucose 116 H 101 Assessment and Plan (1) Congestive heart failure: Status: Acute Plan ? 77-year-old female with history of HFpEF, T2DM, HTN, CKD 3/4,? chronic back/neck pain secondary to spinal stenosis who presents to the emergency department with complaints of shortness of breath, fatigue and found to have acute on chronic heart failure acute on chronic HFpEF--much improved with IV Lasix, change to oral Lasix. Bradycardia in setting of aifb on amio--hold amio. Cardiology consult CKD 4 --stable, HTN continue metoprolol, norvasc Morbid obesity BMI 38.8 weight loss encouraged T2DM hold glimepiride, pioglitazone SSI, POCs, ADA diet hypOthyroid continue synthroid chronic pain continue gabapentin gerd continue omeprazole weakness: pt eval before dc dvt ppx -eliquis code status - Full code PT eval Need for inpatient: CHF requiring IV diuresis and monitoring for response Time Spent With Patient Time: Total time managing care of this patient today ____ minutes. Quality Stroke Does the patient have a stroke diagnosis?: No VTE Prior VTE?: No VTE Risk Level:: Medical - moderate - high VTE Device Contraindication: Treatment Not Indicated VTE Drug Contraindication: N/A - Med Ordered
[2022-12-18] MEDS: Isosorbide Mononitrate 60 MG TAB.ER.24H PO (09:06)
[2022-12-18] MEDS: Sucralfate 1 GM TABLET PO ×4 (09:06→20:38)
[2022-12-18] MEDS: amLODIPine Besylate 5 MG TABLET PO (09:06)
[2022-12-18] MEDS: Metoclopramide HCl 5 MG TABLET PO ×4 (09:06→20:38)
[2022-12-18] MEDS: 0.9 % Sodium Chloride Flush 3 ML SYRINGE IVFLUSH ×3 (09:06→20:39)
[2022-12-18] MEDS: Apixaban 5 MG TABLET PO ×2 (09:06→20:38)
[2022-12-18 09:23] LABS: Anion Gap 13 (12-20); Blood Urea Nitrogen 26 mg/dL (9-16); Calcium 8.6 mg/dL (8.4-10.2); Carbon Dioxide 32 mmol/L (22-29); Chloride 100 mmol/L (96-108); Creatinine Clr Calc Pharmacy 31.4; Estimated Glomerular Filt Rate 33; Glucose Random 118 mg/dL (60-115); Potassium 4.4 mmol/L (3.3-5.1); Sodium 141 mmol/L (135-145)
--- NOTE | 2022-12-18 09:57 | PM.CNCAR ---
History of Present Illness History of Present Illness Date of Service: 12/18/22 Chief complaint: Heart Failure Narrative: This is a cardiology consultation regarding congestive heart failure. Multiple medical comorbidities including diastolic heart failure, hypertension, diabetes, paroxysmal atrial fibrillation. Recent hospitalization with pneumonia, congestive heart failure and respiratory failure requiring ICU level of care with BiPAP and diuretic drip. Currently, she is readmitted stating that her whole body swollen up. She has again been put on diuretics for heart failure and states that getting slowly better. She was also having some breathing issues on arrival but improved now. No angina. Review of Systems Review of Systems: Yes all other systems are reviewed and are negative Constitutional: Constitutional: Reports as per HPI and Reports no additional constitutional complaints Eyes: Eyes: Reports as per HPI and Denies no additional eye complaints ENT: Denies system reviewed and no additional complaints, except as documented and Reports as per HPI Cardiovascular: Cardiovascular: Reports as per HPI, Reports no additional cardiovascular complaints, Denies acrocyanosis, Denies cool extremities, Denies chest pain, Reports leg edema, Denies lightheadedness, Denies palpitations and Reports dyspnea Respiratory: Respiratory: Reports as per HPI, Denies no additional respiratory complaints and Reports dyspnea Gastrointestinal: Gastrointestinal: Reports as per HPI and Denies no additional gastrointestinal complaints Genitourinary: Genitourinary: Reports as per HPI Musculoskeletal: Musculoskeletal: Reports no additional musculoskeletal complaints and Reports as per HPI Integumentary/Breasts: Skin/Breast: Reports system reviewed and no additional complaints, except as docu Neurologic: Reports system reviewed and no additional complaints, except as documented and Reports as per HPI Psychiatric: Psychiatric: Reports no additional psychiatric complaints and Reports as per HPI Endocrine: Endocrine: Reports no additional endocrine complaints, Reports as per HPI and Denies palpitations Hematologic/Lymphatic: Hematologic/Lymphatic: Reports no additional hematologic/lymphatic complaints and Reports as per HPI Allergic/Immunologic: Allergic/Immunologic: Reports no additional allergic/immunologic complaints and Reports as per HPI PMF Past Medical History Medical History CKD (chronic kidney disease), stage IV Depressive disorder Diabetes Diastolic CHF HTN (hypertension) PAF (paroxysmal atrial fibrillation) Spinal stenosis Thyroid activity decreased Family History Family History Other Diabetes Social History Social History Household Members: Spouse and Family Housing: House Do you presently have visiting nurse or other home services: Yes Alcohol intake: never Patient Tobacco Use Status: Never used Tobacco Smoked in Last 30 Days: No Second Hand Smoke Exposure: No Use of substances other than those prescribed or required for medical reasons: No Currently Displaying Signs/Symptoms of Drug Intoxication Withdrawal: No Have you been hit, kicked, punched, or otherwise hurt by someone within the past year? If so, by whom?: No Do you feel safe in your current relationship?: Yes Is there a partner from a previous relationship who is making you feel unsafe now?: No Are you made to feel afraid or neglected: No Advance Directives: Yes Advance Directives on File: Yes Advance Directives Date on File: 08/22/20 Do you have thoughts of harming others: None Do you have a plan to hurt others: No Plan Nutrition Risks: Difficulty swallowing Patient : No service: No Current occupational status: retired [employer] Allergies Allergy/AdvReac Type Severity Reaction Status Date / Time levofloxacin [From LEVAQUIN] AdvReac Mild flushed Verified 11/27/22 08:31 Active Medications: Current Medications Acetaminophen (Acetaminophen 325 Mg Tablet) 650 mg PO Q6H PRN PRN Reason: Pain, Mild (Pain Scale 1-3) Last Admin: 12/18/22 09:06 Dose: 650 mg Amlodipine Besylate (Amlodipine Besylate 5 Mg Tablet) 5 mg PO DAILY [facility]; Protocol Last Admin: 12/18/22 09:06 Dose: 5 mg Apixaban (Apixaban 5 Mg Tablet) 5 mg PO BID [facility] Last Admin: 12/18/22 09:06 Dose: 5 mg Dextrose (Dextrose 50 % 25 Gm/50 Ml Syringe) 25 gm IVPUSH Q15M PRN; Protocol PRN Reason: per Hypoglycemia Standing Ord. Diphenhydramine HCl (Diphenhydramine Hcl 25 Mg Capsule) 25 mg PO DAILY PRN PRN Reason: Allergic Symptoms Docusate Sodium (Docusate Sodium 100 Mg Capsule) 100 mg PO DAILY PRN PRN Reason: Constipation Glucose (Glucose Gel 15 Gm Gel..Gram.) 15 gm PO Q15M PRN; Protocol PRN Reason: per Hypoglycemia Standing Ord. Insulin Human Lispro (Insulin Lispro 100 Unit/Ml 3 Ml Vial) 0 unit SUBCUT QIDACHS [facility]; Protocol Last Admin: 12/18/22 08:32 Dose: Not Given Insulin Human Lispro (Insulin Lispro 100 Unit/Ml 3 Ml Vial) 0 unit SUBCUT QIDAS [facility]; Protocol Last Admin: 12/18/22 09:03 Dose: Not Given Isosorbide Mononitrate (Isosorbide Mononitrate 60 Mg Tab.Er.24h) 60 mg PO DAILY [facility]; Protocol Last Admin: 12/18/22 09:06 Dose: 60 mg Levothyroxine Sodium (Levothyroxine Sodium 50 Mcg Tablet) 50 mcg PO DAILY@0600 [facility] Last Admin: 12/18/22 05:52 Dose: 50 mcg Metoclopramide HCl (Metoclopramide Hcl 5 Mg Tablet) 5 mg PO QID [facility] Last Admin: 12/18/22 09:06 Dose: 5 mg Omeprazole (Omeprazole 20 Mg Capsule.Dr) 20 mg PO BID@0630,1630 [facility] Last Admin: 12/18/22 05:52 Dose: 20 mg Ondansetron HCl (Ondansetron Hcl 4 Mg/2 Ml Vial) 4 mg IVPUSH Q8H PRN PRN Reason: Nausea and Vomiting Last Admin: 12/17/22 22:12 Dose: 4 mg Oxycodone HCl (Oxycodone Hcl Immed Release 5 Mg Tablet) 10 mg PO QID PRN PRN Reason: Pain, Severe (Pain Scale 7-10) Last Admin: 12/18/22 05:51 Dose: 10 mg Sodium Chloride (0.9 % Sodium Chloride Flush 3 Ml Syringe) [facility] Last Admin: 12/18/22 09:06 Dose: 3 ml Sucralfate (Sucralfate 1 Gm Tablet) 1 gm PO QID [facility] Last Admin: 12/18/22 09:06 Dose: 1 gm Trazodone HCl (Trazodone Hcl 50 Mg Tablet) 50 - 100 mg PO BEDTIME PRN PRN Reason: Insomnia Home Medications Medication Instructions Recorded Confirmed Last Taken Type levothyroxine 50 mcg tablet 50 mcg PO DAILY@0600 10/11/22 12/16/22 12/16/22 06:00 History diphenhydramine HCl 25 mg capsule 25 mg DAILY PRN Allergic Symptoms 10/17/22 12/16/22 Unknown History (Benadryl) docusate sodium 100 mg capsule 100 mg PO DAILY PRN Constipation 11/27/22 12/16/22 Unknown History (Colace) metoclopramide HCl 5 mg tablet 5 mg PO QID 11/27/22 12/16/22 12/16/22 09:00 History acetaminophen 325 mg tablet 650 mg PO Q6H PRN Pain 12/16/22 12/16/22 Unknown History (Tylenol) oxycodone 10 mg tablet 10 mg PO QID PRN Pain 12/16/22 12/16/22 Unknown History sucralfate 1 gram tablet 1 g PO QID 12/16/22 12/16/22 12/16/22 09:00 History trazodone 50 mg tablet 50 - 100 mg PO BEDTIME PRN Insomnia 12/16/22 12/16/22 Unknown History Physical Exam Vital Signs: Vital Signs: Last Vital Signs Temp 97.8 F 12/18/22 07:25 Pulse 79 12/18/22 07:25 Resp 20 12/18/22 07:25 BP 130/50 L 12/18/22 07:25 Pulse Ox 98 12/18/22 07:25 O2 Del Method Nasal Cannula 12/18/22 07:25 O2 Flow Rate 1 12/18/22 07:25 BMI result Body Mass Index 38.9 Const: General: comfortable and no acute distress Orientation/consciousness: patient oriented x3 HEENT: Other: Unremarkable Head: Yes normal to inspection Neck: Neck: Yes normal visual inspection Chest: Chest palpation & inspection: normal inspection of the chest Resp: Auscultation: crackles Cardio: Palpation: normal PMI Heart sounds: S1 normal heart sound present, S2 normal heart sound present, no gallops, no murmurs and no rubs GI: Palpation (GI): Soft to palpation Back/Spine/Pelvis: Other: unremarkable Skin: General skin exam: no rashes or lesions noted Neuro: General: patient oriented x3 Extrem: Other: 1+ edema General: Yes normal to inspection Psych: Mental Status: mental status grossly normal Objective Labs and Meds 12/16/22 14:46 12/18/22 08:13 Lab results: Laboratory Results - last 24 hr 12/17/22 12/17/22 12/17/22 11:05 16:36 19:42 Sodium Potassium Chloride Carbon Dioxide Anion Gap BUN Creatinine Estim Creat Clear Calc Estimated GFR POC Glucose 170 H 77 213 H Random Glucose Calcium 12/18/22 12/18/22 12/18/22 03:23 07:01 08:13 Sodium 141 Potassium 4.4 Chloride 100 Carbon Dioxide 32 H Anion Gap 13 BUN 26 H Creatinine 1.55 H Estim Creat Clear Calc 31.4 Estimated GFR 33 POC Glucose 116 H 101 Random Glucose 118 H Calcium 8.6 D ECG Interpretation: EKG shows sinus rhythm at 63/Min; left bundle-branch block pattern; premature atrial contractions. Assessment and Plan (1) Acute on chronic heart failure with preserved ejection fraction (HFpEF): Status: Acute (2) Pulmonary hypertension: Status: Acute (3) PAF (paroxysmal atrial fibrillation): Status: Acute Plan In the recent echocardiogram, LVEF 60-65%. Elevated left-sided filling pressures. Mild aortic stenosis and [id number] mitral regurgitation and moderate tricuspid regurgitation. Severe pulmonary hypertension. Probably all related to left-sided dysfunction. It appears that she had perfusion imaging study on 12/15 but do not see any reports yet. Hence not sure if it actually got completed. In the labs, creatinine is 1.55; BUN is 26. Cardiac BNP is 209. In September, as much as 1129. High sensitivity troponin is 5.5. Going back on her labs, she has been as much as 4.96 in September. Hence overall creatinine is actually better now than before. Chest x-ray with mild heart failure. Based on documentation, it seems that she was on IV Lasix but now getting change to oral medications. She was on amiodarone but being held because of bradycardia. Based on input output data, she has negative 1800 cc. Volume overload could be some combination of congestive heart failure as well as from renal failure and she also has low albumin. With regard to the question of bradycardia, I do see some very brief bradycardia episodes but nothing profound. Average heart rates are actually okay. Okay to continue amiodarone. Time Spent With Patient Time: Total time managing care of this patient today ____ minutes. Procedures Date of Service Date of Service: 12/18/22
[2022-12-18 11:24] LABS: Glucose, Whole Blood 199 mg/dL (60-115)
[2022-12-18] MEDS: Insulin Lispro 100 UNIT/ML 3 ML VIAL SUBCUT ×2 (12:08→16:52)
[2022-12-18] MEDS: LORazepam 2 MG/ML VIAL 1 MG IVPUSH (14:30)
[2022-12-18 16:29] LABS: Glucose, Whole Blood 166 mg/dL (60-115)
[2022-12-18 20:18] LABS: Glucose, Whole Blood 206 mg/dL (60-115)
--- NOTE | 2022-12-18 20:45 | PC.NURSE ---
Pt was desatting to mid 80s while sleeping, asymptomatic, Pt placed on 2l n/c and O2 up to 97.%.
[2022-12-19] MEDS: oxyCODONE HCl Immed Release 5 MG TABLET 10 MG PO ×2 (00:17→08:02)
[2022-12-19 03:16] VITALS: BP 156/67; PULSE 73; RESP 18; TEMP 36.4; O2SAT 96
[2022-12-19] MEDS: Omeprazole 20 MG CAPSULE.DR PO (05:20)
[2022-12-19] MEDS: Levothyroxine Sodium 50 MCG TABLET PO (05:20)
[2022-12-19 07:08] LABS: Glucose, Whole Blood 153 mg/dL (60-115)
[2022-12-19 07:35] VITALS: BP 150/60; PULSE 77; RESP 20; TEMP 36.4; O2SAT 98
[2022-12-19] MEDS: Insulin Lispro 100 UNIT/ML 3 ML VIAL SUBCUT (08:00)
[2022-12-19] MEDS: Apixaban 5 MG TABLET PO (08:01)
[2022-12-19] MEDS: polyethylene glycoL 3350 17 GM POWD.PACK PO (08:01)
[2022-12-19] MEDS: Docusate Sodium 100 MG CAPSULE PO (08:01)
[2022-12-19] MEDS: ondansetron HCL 4 MG/2 ML VIAL IVPUSH (08:01)
[2022-12-19] MEDS: Sucralfate 1 GM TABLET PO (08:01)
[2022-12-19] MEDS: amLODIPine Besylate 5 MG TABLET PO (08:01)
[2022-12-19] MEDS: Acetaminophen 325 MG TABLET 650 MG PO (08:01)
[2022-12-19] MEDS: Isosorbide Mononitrate 60 MG TAB.ER.24H PO (08:02)
[2022-12-19] MEDS: Metoclopramide HCl 5 MG TABLET PO (08:02)
[2022-12-19] MEDS: Furosemide 40 MG TABLET PO (08:02)
[2022-12-19] MEDS: 0.9 % Sodium Chloride Flush 3 ML SYRINGE IVFLUSH (08:02)
--- NOTE | 2022-12-19 09:50 | P.DS_ITS ---
DS: Providers Provider Date of Service: 12/19/22 Date of admission: 12/16/22 17:36 Primary care physician: Berlin Raymundo MD Consults: 12/18/22 08:38 Consult to Cardiology Routine Consulting [place] [facility] [place] Reason for consultation: Daniel SSS, on amio Has provider been notified: Yes DS: Diagnosis Discharge Diagnosis (1) Acute on chronic heart failure with preserved ejection fraction (HFpEF): Status: Acute (2) Pulmonary hypertension: Status: Acute (3) PAF (paroxysmal atrial fibrillation): Status: Acute DS: Summary Hospital Course Hospital Course: Chief Complaint: Shortness of breath 77-year-old female with history of HFpEF, diabetes, pulmonary HTN, T2DM,? chronic back/neck pain secondary to spinal stenosis,?paroxysmal atrial fibrillation on eliquis,?hypertension who presents to the emergency department with shortness of breath. She was recently hospitalized between October and? November 10, 2022 with? CHF, and PNA complicated by acute respiratory failure and required ICU level of with BiPAP use and diuretic drip. She is back to the ED with increasing weakness,? RAMIREZ, sob and increased leg edema, weight gain, dry cough. CXR shows pulmonary edema, leg US show no DVT. Hospital course: Patient was admitted for exacerbation of heart failure in the absence of maintenance diuretics at home. She was treated with IV diuretics (lasix) with significant improvement in her symptoms and leg edema over several days. She was noted to have periods of bradycardia but without sinus pauses, she was seen by cardiology and will be maintained on amiodarone for atrial fibrilation control a this time. Time Spent with Patient Time attestation: Total time managing care of this patient today ____ minutes. Discharge coordination time: Greater than 30 minutes Quality: Safe Use of Opioids Does Pt have an Active Cancer Diagnosis on the Problem List?: No Quality: Stroke Does the patient have a stroke diagnosis?: No Physical Exam Vital Signs: Vital Signs: Last Vital Signs Temp 97.5 F 12/19/22 07:35 Pulse 77 12/19/22 07:35 Resp 20 12/19/22 07:35 BP 150/60 H 12/19/22 07:35 Pulse Ox 98 12/19/22 07:35 O2 Del Method Room Air 12/19/22 07:35 O2 Flow Rate 2 12/19/22 03:16 BMI result Body Mass Index 38.9 DS: Data Data Completed and Pending Completed studies during hospitalization [Text1]: Procedures Assistance with Respiratory Ventilation, Less than 24 Consecutive Hours, Continuous Positive Airway Pressure (10/17/22) Labs on day of discharge: Laboratory Results - last 24 hr 12/18/22 12/18/22 12/18/22 11:15 16:25 19:53 POC Glucose 199 H 166 H 206 H 12/19/22 07:01 POC Glucose 153 H Discharge Plan Discharge Anticipated Discharge Date/Time: 12/19/22 09:45 Patient Disposition: Home Health Service Discharge Diagnosis: Heart failure exacerbation Referrals: [facility] [Outside] - 1 Week Berlin Raymundo MD [Primary Care Provider] - 1 Week Discharge Medications: New furosemide [Lasix] 40 mg tablet 40 mg PO QAM Qty: 30 0RF Continued amiodarone 200 mg tablet 200 mg PO DAILY 30 Days Qty: 90 1RF isosorbide mononitrate 60 mg tablet extended release 24 hr 60 mg PO DAILY 30 Days Qty: 90 1RF Protocol: Hold for SBP< HOLD for SBP < : 90 omeprazole 20 mg capsule,delayed release(DR/EC) 20 mg PO BID Qty: 30 0RF diphenhydramine HCl [Benadryl] 25 mg Capsule 25 mg DAILY PRN (Reason: Allergic Symptoms) Eliquis 5 mg Tablet 5 mg PO BID 30 Days Qty: 60 0RF amlodipine 5 mg Tablet 5 mg PO DAILY 30 Days Qty: 30 0RF Protocol: Hold for SBP< HOLD for SBP < : 90 insulin lispro [Humalog U-100 Insulin] 100 unit/mL Solution See Protocol subcut QIDACHS Qty: 10 0RF Protocol: Insulin Correction Scale Less than or equal to 110 ---- Give (units): 0 111 to 150 Give (units): 0 151 to 200 Give (units): 2 201 to 250 Give (units): 4 251 to 300 Give (units): 6 301 to 350 Give (units): 8 Greater than 350 Give (units): 10 Call MD if Blood Glucose > : 350 trazodone 50 mg tablet 50 - 100 mg PO BEDTIME PRN (Reason: Insomnia) sucralfate 1 gram tablet 1 g PO QID oxycodone 10 mg tablet 10 mg PO QID PRN (Reason: Pain) acetaminophen [Tylenol] 325 mg Tablet 650 mg PO Q6H PRN (Reason: Pain) levothyroxine 50 mcg tablet 50 mcg PO DAILY@0600 metoclopramide HCl 5 mg tablet 5 mg PO QID docusate sodium [Colace] 100 mg capsule 100 mg PO DAILY PRN (Reason: Constipation) Discharge Orders: Discharge Order (Routine); Ordered 12/19/22 Ordered By: Balbir Hathaway Diet: Low salt diet Activity on Discharge: As tolerated Stand Alone Forms: Patient Portal Discharge page Care Plan Goals: recovery from heart failure Health Concerns: heart failure Plan of Treatment: you were treaed for heart failure with diuretics (water medication) and have improve and you will be going taking more diuretic (lasix) everyday, you need to keep an eye on your water intake to n more than 1500 cc a day, and weight yourself daily or several times and if your weight go up 2Ib in a day, call your doctor Assessment: as above
--- NOTE | 2022-12-19 09:54 | MHC.CM.PN ---
Patient has been medically cleared for dc to home today, with services. Patient is active with [facility], who has been notified of today's dc. IMM to be addressed with Patient.
--- NOTE | 2022-12-19 09:54 | W.MHC.F2F ---
Service Date Service Date: 12/19/22 Encounter Date of encounter: 12/19/22 Reasons for Services Signs and symptoms assessed: shortness of breath due to heart failure Reason for intermediate: CV/CP assess and/or care and medication treatment Homebound: Leaving the home is medically contraindicated at this time without the asist of a device and/or another person due th the listed conditions above and below. Reason homebound: shortness of breath with minimal effort Homebound supporting statement: homebound due to heart failure causing shortness of breath at rest and with exertion and therefore needs the assistance of another person Certification: Based on the above findings, I certify that this patient is confined to the home and needs intermittent intermediate care, physical therapy and/or speech therapy, or continues to need occupational therapy. The patient is under my care, and I have initiated the establishment of the plan of care. The patient will be followed by a physician who will periodically review the plan of care. Time Spent With Patient Time: Total time managing care of this patient today ____ minutes.
[2022-12-19 11:00] VITALS: BP 140/60; PULSE 77; RESP 20; TEMP 36.3; O2SAT 93
[2022-12-19 11:01] LABS: Glucose, Whole Blood 105 mg/dL (60-115)
--- NOTE | 2022-12-19 11:09 | PM.PNCARD ---
Subjective Subjective Date of Service: 12/19/22 Interval history: Patient states that she is feeling okay. No new complaints. Breathing seems improved. Less swelling. Review of Systems Review of Systems Yes all other systems are reviewed and are negative Constitutional: Reports as per HPI and Reports no additional constitutional complaints Eyes: Reports as per HPI and Denies no additional eye complaints Denies system reviewed and no additional complaints, except as documented and Reports as per HPI Cardiovascular: Reports as per HPI, Reports no additional cardiovascular complaints, Denies acrocyanosis, Denies cool extremities, Denies chest pain, Denies leg edema, Denies lightheadedness, Denies palpitations and Denies dyspnea Respiratory: Reports as per HPI, Denies no additional respiratory complaints and Denies dyspnea Gastrointestinal: Reports as per HPI and Denies no additional gastrointestinal complaints Genitourinary: Reports as per HPI Musculoskeletal: Reports no additional musculoskeletal complaints and Reports as per HPI Skin/Breast: Reports system reviewed and no additional complaints, except as docu Reports system reviewed and no additional complaints, except as documented and Reports as per HPI Psychiatric: Reports no additional psychiatric complaints and Reports as per HPI Endocrine: Reports no additional endocrine complaints, Reports as per HPI and Denies palpitations Hematologic/Lymphatic: Reports no additional hematologic/lymphatic complaints and Reports as per HPI Allergic/Immunologic: Reports no additional allergic/immunologic complaints and Reports as per HPI Physical Exam Vital Signs: Last Vital Signs Temp 97.4 F 12/19/22 11:00 Pulse 77 12/19/22 11:00 Resp 20 12/19/22 11:00 BP 140/60 H 12/19/22 11:00 Pulse Ox 93 12/19/22 11:00 O2 Del Method Room Air 12/19/22 11:00 O2 Flow Rate 2 12/19/22 03:16 BMI result Body Mass Index 38.9 Const General: comfortable and no acute distress Orientation/consciousness: patient oriented x3 HEENT Other: Unremarkable Head: Yes normal to inspection Neck Neck: Yes normal visual inspection Chest Chest palpation & inspection: normal inspection of the chest Resp Auscultation: clear to auscultation bilaterally Cardio Palpation: normal PMI Heart sounds: S1 normal heart sound present, S2 normal heart sound present, no gallops, no murmurs and no rubs GI Palpation (GI): Soft to palpation Back/Spine/Pelvis Other: unremarkable Skin General skin exam: no rashes or lesions noted Neuro General: patient oriented x3 Extrem Other: Trace edema. General: Yes normal to inspection Psych Mental Status: mental status grossly normal Objective Labs and Meds 12/16/22 14:46 12/18/22 08:13 Lab results: Laboratory Results - last 24 hr 12/18/22 12/18/22 12/18/22 11:15 16:25 19:53 POC Glucose 199 H 166 H 206 H 12/19/22 12/19/22 07:01 10:54 POC Glucose 153 H 105 Progress Note: A&P Assessment and plan (1) Acute on chronic heart failure with preserved ejection fraction (HFpEF): Status: Acute (2) Pulmonary hypertension: Status: Acute (3) PAF (paroxysmal atrial fibrillation): Status: Acute Plan In the recent echocardiogram, LVEF 60-65%. Elevated left-sided filling pressures. Mild aortic stenosis and [id number] mitral regurgitation and moderate tricuspid regurgitation. Severe pulmonary hypertension. Probably all related to left-sided dysfunction. Based on input/output chart, -2.3 L. Creatinine 1.5. BUN is 26. Cardiac BNP is 209. In September, as much as 1129. High sensitivity troponin is 5.5. Going back on her labs, she has been as much as 4.96 in September. Hence overall creatinine is actually better now than before. Chest x-ray with mild heart failure. Volume overload could be some combination of congestive heart failure as well as from renal failure and she also has low albumin. She was on IV Lasix but now on oral Lasix. There is also history of paroxysmal atrial fibrillation she was on amiodarone. There is a question of bradycardia and hence is being held. Telemetry reviewed. Mostly she has sinus rhythm with some PACs. Transient bradycardia probably but nothing profound. Okay to resume as there is a fairly significant risk of going back into atrial fibrillation. Continue with anticoagulation. Discussed with Dr. Hathaway. Time Spent With Patient Time: Total time managing care of this patient today 45 minutes. This includes time spent in review of chart, laboratory data, imaging studies, review of telemetry, counseling patient, discussion with hospitalist, RN, documentation, coordination of care. Progress Note: Quality Stroke Does the patient have a stroke diagnosis?: No Procedures Date of Service Date of Service: 12/19/22
== END 2022-12-19 12:37 | disposition home health service (06) | DRG 291 ==
LOC: HO.ED 16:37 → HO.EDOVER 17:49 → HO.IMC 21:11
PROVIDERS: Physician Assistant; Admitting Provider Internal Medicine; Emergency Provider Emergency Medicine Emergency Medical Services; PCP Internal Medicine; Visit Provider Internal Medicine
DX: I13.0 Hypertensive heart and chronic kidney disease with heart failure and stage 1 through stage 4 chronic kidney disease, or unspecified chronic kidney disease (principal); I50.33 Acute on chronic diastolic (congestive) heart failure; N18.4 Chronic kidney disease, stage 4 (severe); E11.22 Type 2 diabetes mellitus with diabetic chronic kidney disease; E87.5 Hyperkalemia; I48.0 Paroxysmal atrial fibrillation; E66.01 Morbid (severe) obesity due to excess calories; E03.9 Hypothyroidism, unspecified; G89.29 Other chronic pain; I08.3 Combined rheumatic disorders of mitral, aortic and tricuspid valves; K21.9 Gastro-esophageal reflux disease without esophagitis; I27.22 Pulmonary hypertension due to left heart disease; R00.1 Bradycardia, unspecified; Z68.38 Body mass index [BMI] 38.0-38.9, adult; Z20.822 Contact with and (suspected) exposure to COVID-19; Z79.4 Long term (current) use of insulin; Z79.01 Long term (current) use of anticoagulants; Z79.890 Hormone replacement therapy; Z79.899 Other long term (current) drug therapy
CPT/HCPCS: 36415; 71045; 80048; 80076; 81001; 82272; 82803; 82947; 83735; 83880; 84484; 85025; 85610; 87635; 93005; 93970; 97161; 99285; J1940; J2060; J2405

== ENCOUNTER 2023-01-09 13:35 | Outpatient (REF) | payer MEDICARE, OTHER, SELFPAY ==
--- NOTE | ~2023-01-09 | XR_ITS ---
EXAMINATION: XR ABDOMEN COMPLETE CLINICAL INDICATION: ? CONSTIPATION WITH OVERFLOW INCONTINENCE COMPARISON: 10/20/22 CT abd/pelvis. TECHNIQUE: 3 views of the abdomen. FINDINGS: The bowel gas pattern is normal with no evidence of ileus or obstruction. No unusual soft tissue calcifications are noted. No acute osseous abnormalities. XR/XR abdomen min 2V IMPRESSION: The bowel gas pattern is normal with no evidence of ileus or obstruction.
== END 2023-01-09 13:36 | disposition home or self-care (01) ==
LOC: HO.HMGCX 13:35
PROVIDERS: PCP Internal Medicine; Visit Provider Internal Medicine
DX: K59.09 Other constipation (principal)
CPT/HCPCS: 74019

== ENCOUNTER 2023-01-09 21:28 | Emergency (ER) | payer MEDICARE, SELFPAY ==
[2023-01-09 21:52] VITALS: BP 102/66; PULSE 75; RESP 17; TEMP 36.3; O2SAT 95; BMI 31.9
[2023-01-09 22:24] LABS: MANUAL DIFF FLAG NO
[2023-01-09 22:26] LABS: Basophils Percent Auto 0.4 % (0-2); Eosinophils Absolute Auto 0.1 X10*3/uL (0.0-0.4); Eosinophils Percent Auto 1.7 % (0-4); Hematocrit 27.9 % (37.0-47.0); Hemoglobin 8.8 g/dl (12.0-16.0); Imm Gran Abs Auto 0.02 X10*3/uL (0.00-0.03); Imm Gran Pct Auto 0.3 % (0.0-0.4); Lymphocytes Absolute Auto 0.9 X10*3/uL (1.2-4.9); Lymphocytes Percent Auto 13.2 % (20-40); Mean Corpuscular HGB Conc 31.5 g/dl (31.0-35.0); Mean Corpuscular Hemoglobin 27.2 pg (27.0-33.0); Mean Corpuscular Volume 86.1 fL (80.0-98.0); Mean Platelet Volume 10.1 fL (9.4-12.3); Monocytes Absolute Auto 0.8 X10*3/uL (0.1-1.2); Monocytes Percent Auto 10.6 % (2-11); Neutrophils Absolute Auto 5.3 x10*3/uL (2.0-8.3); Neutrophils Percent Auto 73.8 % (45-73); Platelet Count 270 X10*3/uL (160-400); Red Blood Count 3.24 X10*6/uL (4.20-5.50); Red Cell Distribution Width 15.3 % (11.0-16.0); White Blood Count 7.1 X10*3/uL (4.8-10.8)
[2023-01-09 22:41] LABS: Anion Gap 13 (12-20); Blood Urea Nitrogen 31 mg/dL (9-16); Calcium 8.2 mg/dL (8.4-10.2); Carbon Dioxide 27 mmol/L (22-29); Chloride 101 mmol/L (96-108); Creatinine Clr Calc Pharmacy 28.6; Estimated Glomerular Filt Rate 29; Glucose Random 171 mg/dL (60-115); Potassium 3.8 mmol/L (3.3-5.1); Sodium 137 mmol/L (135-145)
== END 2023-01-10 02:02 | disposition left against medical advice (07) ==
PROVIDERS: Emergency Provider Emergency Medicine; PCP Internal Medicine
DX: R19.7 Diarrhea, unspecified (principal); E86.0 Dehydration; R53.1 Weakness; Z79.899 Other long term (current) drug therapy
CPT/HCPCS: 36415; 80048; 85025; 99281; 99283

== ENCOUNTER 2023-01-10 13:17 | Emergency (ER) | payer MEDICARE, SELFPAY ==
--- NOTE | ~2023-01-10 | CT_ITS ---
EXAMINATION: CT ABDOMEN AND PELVIS WITHOUT CONTRAST CLINICAL INFORMATION: Abdominal pain and diarrhea. COMPARISON: None available. TECHNIQUE: Multidetector volumetric imaging was performed from the superior aspect of the liver through the pubic symphysis. Sagittal and coronal reformatted images were obtained on the technologist's workstation. This CT examination was performed using dose optimization techniques as appropriate, variously including the following: *Automated exposure control *Adjustment of mA and/or kV according to patient size (this includes techniques or standardized protocols for targeted exams where dose is matched to indication/reason for exam; i.e. extremities or head) *Use of iterative reconstruction technique DLP: 602 mGy-cm FINDINGS: LUNG BASES: The visualized lung bases are unremarkable. LIVER, GALLBLADDER, AND BILIARY TREE: The liver is normal in size, shape, and attenuation. No focal hepatic lesion or biliary ductal dilatation is present. The gallbladder is not visualized. PANCREAS: Unremarkable. SPLEEN: Spleen is normal size with punctate calcifications. ADRENAL GLANDS: Unremarkable. KIDNEYS AND URETERS: The kidneys are normal in size, shape, and attenuation. No hydronephrosis, hydroureter, or calculi seen. No perinephric stranding. BLADDER: Unremarkable. GASTROINTESTINAL TRACT: There is scattered stool, gas and diverticula seen throughout the colon without distention. Nonspecific mild thickening of sigmoid colon seen but no pericolic fat stranding visualized. The small bowel loops are normal caliber. Appendix is normal caliber. No free air or free fluid seen. ABDOMINAL WALL: No significant hernia is appreciated. LYMPH NODES: The noted lymph nodes or mass seen. VASCULAR: Mild osteoarthritic changes of abdominal aorta without aneurysmal dilatation. PELVIC VISCERA: No free air or free fluid. The uterus is anteverted and unremarkable. OSSEOUS STRUCTURES: There is grade 1 anterolisthesis L4 over L5. There is metallic interspinous stabilizing the L4-L5 vertebra. Degenerative disc changes L5-S1, L4-L5 and L3-L4 disc levels are noted. CT/CT abdomen pelvis wo IV con IMPRESSION: 1. No acute intra-abdominal process seen. 2. Diffuse colonic diverticulosis without diverticulitis. Mild constipation. 3. Grade 1 anterolisthesis L4 over L5 with degenerative disc changes L3-L4, L4-L5 and L5-S1 disc levels. Fleischner guidelines were followed.
[2023-01-10 13:19] VITALS: BP 115/37; BP 122/76; PULSE 70; PULSE 82; RESP 18; TEMP 36.7; O2SAT 93; O2SAT 98; BMI 35.1
--- NOTE | 2023-01-10 13:36 | ECG_ITS ---
Test Reason : CHEST PAIN Blood Pressure : / mmHG Vent. Rate : 067 BPM Atrial Rate : 067 BPM P-R Int : 202 ms QRS Dur : 144 ms QT Int : 486 ms P-R-T Axes : 068 -08 129 degrees QTc Int : 513 ms Sinus rhythm with Premature atrial complexes Left bundle branch block Abnormal ECG When compared with ECG of 16-DEC-2022 14:18, No significant change was found Referred By: Hilda Perdomo Electronically Signed By:COLUMBA ASIF MD
--- NOTE | 2023-01-10 13:53 | ED_ITS ---
HPI - Abdominal Pain General Chief Complaint: Abdominal Pain Stated Complaint: MULTIPLE COMPLAINTS Time Seen by Provider: 01/10/23 13:35 Source: patient Mode of arrival: EMS History of Present Illness HPI narrative: This is a 77-year-old female who arrives via EMS with complaints of stool leakage, diarrhea, since without associated fever, chills, nausea, vomiting and denies any dysuria, shortness of breath or chest pain. Patient states that this morning she has began having lower abdominal discomfort in both the right and left quadrants. She denies any recent antibiotic use. Related Data Home Medications Medication Instructions Recorded Confirmed levothyroxine 50 mcg tablet 50 mcg PO DAILY@0600 10/11/22 12/16/22 diphenhydramine HCl 25 mg capsule 25 mg DAILY PRN Allergic Symptoms 10/17/22 12/16/22 (Benadryl) docusate sodium 100 mg capsule 100 mg PO DAILY PRN Constipation 11/27/22 12/16/22 (Colace) metoclopramide HCl 5 mg tablet 5 mg PO QID 11/27/22 12/16/22 acetaminophen 325 mg tablet 650 mg PO Q6H PRN Pain 12/16/22 12/16/22 (Tylenol) oxycodone 10 mg tablet 10 mg PO QID PRN Pain 12/16/22 12/16/22 sucralfate 1 gram tablet 1 g PO QID 12/16/22 12/16/22 trazodone 50 mg tablet 50 - 100 mg PO BEDTIME PRN Insomnia 12/16/22 12/16/22 Previous Rx's Medication Instructions Recorded omeprazole 20 mg capsule,delayed 20 mg PO BID #30 caps 08/22/20 release amlodipine 5 mg tablet 5 mg PO DAILY 30 days #30 tabs 11/07/22 apixaban 5 mg tablet (Eliquis) 5 mg PO BID 30 days #60 tabs 11/07/22 insulin lispro 100 unit/mL See Protocol subcut QIDACHS #10 mL 11/07/22 subcutaneous solution (Humalog U-100 Insulin) amiodarone 200 mg tablet 200 mg PO DAILY 30 days #90 tabs 12/05/22 isosorbide mononitrate 60 mg 60 mg PO DAILY 30 days #90 tabs 12/05/22 tablet,extended release 24 hr furosemide 40 mg tablet (Lasix) 40 mg PO QAM #30 tabs 12/19/22 Allergies Allergy/AdvReac Type Severity Reaction Status Date / Time levofloxacin [From LEVAQUIN] AdvReac Mild flushed Verified 11/27/22 08:31 Review of Systems Review of Systems Pertinent positives and negatives as stated in HPI [facility] Past Medical History Source: nursing notes reviewed Medical History CKD (chronic kidney disease), stage IV Congestive heart failure Depressive disorder Diabetes Diastolic CHF HTN (hypertension) PAF (paroxysmal atrial fibrillation) Spinal stenosis Thyroid activity decreased Family History Family History Other Diabetes Social History Social History Household Members: Spouse and Family Housing: House Do you presently have visiting nurse or other home services: Yes Alcohol intake: never Patient Tobacco Use Status: Never used Tobacco Second Hand Smoke Exposure: No Advance Directives: Yes Advance Directives on File: Yes Advance Directives Date on File: 12/16/22 service: No Current occupational status: retired Physical Exam ED Vital Signs: Vital Signs - 24 hr 01/10/23 13:19 Temperature 98.0 F Pulse Rate 70 Respiratory Rate 18 Blood Pressure 115/37 L Pulse Oximetry 93 Oxygen Delivery Method Room Air BMI result Body Mass Index 35.1 VITAL SIGNS: Reviewed. GENERAL: Elevated BMI, elderly, Well developed, well nourished, in no acute distress. HEAD: Normocephalic/atraumatic EYES: PERRLA, EOMI EARS: Ext canals without abnormality NOSE: Nares patent bilateral OROPHARYNX: no oral lesions noted, posterior pharynx clear NECK: Supple, no adenopathy LUNGS: Normal breath sounds. No adventitious sounds or accessory muscle use. SpO2<93> CARDIOVASCULAR: Regular rate and rhythm without noted murmurs, no JVD but trace lower extremity edema. ABDOMEN: Soft, discomfort noted on palpation to lower abdomen, non-distended with bowel sounds. MUSCULOSKELETAL: No tenderness, deformities, or effusions noted on gross inspection. EXTREMITIES: No cyanosis, clubbing or edema. SKIN: Inspection of the skin reveals no rashes NEUROLOGIC: Alert and oriented x 4. Strength and sensation to light touch were grossly intact x 4. Medical Decision Making Medical Decision Making MDM Narrative: 1357: 77-year-old female with history and clinical presentation, DDX: Overflow constipation, diverticulitis, cystitis, appendicitis. I reviewed all investigations, hematologic indices demonstrates chronically stable anemia without leukocytosis and mild left shift, INR consistent with use of chronic anticoagulation. Chemistry indices demonstrate a chronically stable CKD, and other values are chronically stable. Patient will be straight cath for urinalysis and if those results are negative she can be discharged with instructions follow-up with her primary care provider on Thursday morning. Signed out to DR Campo - f/andrea MCCLOUD Differential Diagnosis Differential Diagnoses: The differential diagnosis associated with the presentation includes Please see the discussion above Admission/Observation Consideration of admission/observation: Escalation of care including a dmission/observation considered Lab Data [facility] Lab Attestation statement: I reviewed the patient's lab results. Please see the discussion above 01/10/23 13:58 01/10/23 13:58 Labs: Lab Results 01/10/23 01/10/23 01/10/23 Range/Units 13:58 13:58 13:58 WBC 6.4 (4.8-10.8) X10*3/uL RBC 3.07 L (4.20-5.50) X10*6/uL Hgb 8.4 L (12.0-16.0) g/dl Hct 26.3 L (37.0-47.0) % MCV 85.7 (80.0-98.0) fL MCH 27.4 (27.0-33.0) pg MCHC 31.9 (31.0-35.0) g/dl RDW 15.2 (11.0-16.0) % Plt Count 268 (160-400) X10*3/uL MPV 10.9 (9.4-12.3) fL Immature Gran % (Auto) 0.2 (0.0-0.4) % Neut % (Auto) 73.7 H (45-73) % Lymph % (Auto) 12.7 L (20-40) % Kimble % (Auto) 11.0 (2-11) % Eos % (Auto) 1.9 (0-4) % Baso % (Auto) 0.5 (0-2) % Lymph # (Auto) 0.8 L (1.2-4.9) X10*3/uL Kimble # (Auto) 0.7 (0.1-1.2) X10*3/uL Eos # (Auto) 0.1 (0.0-0.4) X10*3/uL Baso # (Auto) 0.0 (0.0-0.2) X10*3/uL Abs Immat Gran (auto) 0.01 (0.00-0.03) X10*3/uL Absolute Neuts (auto) 4.7 (2.0-8.3) x10*3/uL Absolute Nucleated RBC 0.000 (0.0-0.012) X10*3/uL Nucleated RBC % (auto) 0.0 (0.0-0.2) /100WBC PT 19.3 H (10.0-13.1) SEC INR 1.6 H (0.9-1.1) Sodium 141 (135-145) mmol/L Potassium 3.9 (3.3-5.1) mmol/L Chloride 104 (96-108) mmol/L Carbon Dioxide 29 (22-29) mmol/L Anion Gap 12 (12-20) BUN 28 H (9-16) mg/dL Creatinine 1.54 H (0.5-1.4) mg/dL Estim Creat Clear Calc 29.8 Estimated GFR 33 POC Glucose (60-115) mg/dL Random Glucose 131 H (60-115) mg/dL Calcium 8.3 L (8.4-10.2) mg/dL Total Bilirubin 0.3 (0.0-1.0) mg/dL AST 9 (5-31) U/L ALT 9 (0-31) U/L Alkaline Phosphatase 85 (39-117) U/L Total Protein 5.5 L (6.5-8.0) g/dL Albumin 3.1 L (3.5-5.0) g/dL 01/10/23 Range/Units 16:03 WBC (4.8-10.8) X10*3/uL RBC (4.20-5.50) X10*6/uL Hgb (12.0-16.0) g/dl Hct (37.0-47.0) % MCV (80.0-98.0) fL MCH (27.0-33.0) pg MCHC (31.0-35.0) g/dl RDW (11.0-16.0) % Plt Count (160-400) X10*3/uL MPV (9.4-12.3) fL Immature Gran % (Auto) (0.0-0.4) % Neut % (Auto) (45-73) % Lymph % (Auto) (20-40) % Kimble % (Auto) (2-11) % Eos % (Auto) (0-4) % Baso % (Auto) (0-2) % Lymph # (Auto) (1.2-4.9) X10*3/uL Kimble # (Auto) (0.1-1.2) X10*3/uL Eos # (Auto) (0.0-0.4) X10*3/uL Baso # (Auto) (0.0-0.2) X10*3/uL Abs Immat Gran (auto) (0.00-0.03) X10*3/uL Absolute Neuts (auto) (2.0-8.3) x10*3/uL Absolute Nucleated RBC (0.0-0.012) X10*3/uL Nucleated RBC % (auto) (0.0-0.2) /100WBC PT (10.0-13.1) SEC INR (0.9-1.1) Sodium (135-145) mmol/L Potassium (3.3-5.1) mmol/L Chloride (96-108) mmol/L Carbon Dioxide (22-29) mmol/L Anion Gap (12-20) BUN (9-16) mg/dL Creatinine (0.5-1.4) mg/dL Estim Creat Clear Calc Estimated GFR POC Glucose 109 (60-115) mg/dL Random Glucose (60-115) mg/dL Calcium (8.4-10.2) mg/dL Total Bilirubin (0.0-1.0) mg/dL AST (5-31) U/L ALT (0-31) U/L Alkaline Phosphatase (39-117) U/L Total Protein (6.5-8.0) g/dL Albumin (3.5-5.0) g/dL Independent Interpretation I performed an independent interpretation of an: EKG Interpretation: Sinus rhythm with PACs, HR-67, LBB at baseline, no STEMI, [place] within normal limits, QRS-144, QTC -513 Radiology Impression Radiologist Impression: No colitis or diverticulitis, otherwise my interpretation is in agreement with radiology's impression. External Record Review External record reviewed: Outpatient record and Prior outpatient labs Chronic Conditions Patient?s care impacted by: Diabetes and Hypertension Discharge Plan Discharge Clinical Impression: Diarrhea Patient Disposition: Still a Patient Instructions: Nutrition Tips for Relief of Diarrhea (ED), Acute Diarrhea (ED) Additional Instructions: 1. Resume all home medications as prescribed. 2. Continue to drink plenty of fluids. Review the recommendations for dietary changes that you can implement. 3. Follow-up with your primary care provider on Thursday morning. Return to the ER for any worsening symptoms. Prescriptions: No Action amiodarone 200 mg tablet 200 mg PO DAILY 30 Days Qty: 90 1RF isosorbide mononitrate 60 mg tablet extended release 24 hr 60 mg PO DAILY 30 Days Qty: 90 1RF Protocol: Hold for SBP< HOLD for SBP < : 90 omeprazole 20 mg capsule,delayed release(DR/EC) 20 mg PO BID Qty: 30 0RF diphenhydramine HCl [Benadryl] 25 mg Capsule 25 mg DAILY PRN (Reason: Allergic Symptoms) Eliquis 5 mg Tablet 5 mg PO BID 30 Days Qty: 60 0RF amlodipine 5 mg Tablet 5 mg PO DAILY 30 Days Qty: 30 0RF Protocol: Hold for SBP< HOLD for SBP < : 90 insulin lispro [Humalog U-100 Insulin] 100 unit/mL Solution See Protocol subcut QIDACHS Qty: 10 0RF Protocol: Insulin Correction Scale Less than or equal to 110 ---- Give (units): 0 111 to 150 Give (units): 0 151 to 200 Give (units): 2 201 to 250 Give (units): 4 251 to 300 Give (units): 6 301 to 350 Give (units): 8 Greater than 350 Give (units): 10 Call MD if Blood Glucose > : 350 trazodone 50 mg tablet 50 - 100 mg PO BEDTIME PRN (Reason: Insomnia) sucralfate 1 gram tablet 1 g PO QID oxycodone 10 mg tablet 10 mg PO QID PRN (Reason: Pain) acetaminophen [Tylenol] 325 mg Tablet 650 mg PO Q6H PRN (Reason: Pain) furosemide [Lasix] 40 mg tablet 40 mg PO QAM Qty: 30 0RF levothyroxine 50 mcg tablet 50 mcg PO DAILY@0600 metoclopramide HCl 5 mg tablet 5 mg PO QID docusate sodium [Colace] 100 mg capsule 100 mg PO DAILY PRN (Reason: Constipation)
[2023-01-10 14:03] LABS: MANUAL DIFF FLAG NO
[2023-01-10 14:04] LABS: Basophils Percent Auto 0.5 % (0-2); Eosinophils Absolute Auto 0.1 X10*3/uL (0.0-0.4); Eosinophils Percent Auto 1.9 % (0-4); Hematocrit 26.3 % (37.0-47.0); Hemoglobin 8.4 g/dl (12.0-16.0); Imm Gran Abs Auto 0.01 X10*3/uL (0.00-0.03); Imm Gran Pct Auto 0.2 % (0.0-0.4); Lymphocytes Absolute Auto 0.8 X10*3/uL (1.2-4.9); Lymphocytes Percent Auto 12.7 % (20-40); Mean Corpuscular HGB Conc 31.9 g/dl (31.0-35.0); Mean Corpuscular Hemoglobin 27.4 pg (27.0-33.0); Mean Corpuscular Volume 85.7 fL (80.0-98.0); Mean Platelet Volume 10.9 fL (9.4-12.3); Monocytes Absolute Auto 0.7 X10*3/uL (0.1-1.2); Neutrophils Absolute Auto 4.7 x10*3/uL (2.0-8.3); Neutrophils Percent Auto 73.7 % (45-73); Platelet Count 268 X10*3/uL (160-400); Red Blood Count 3.07 X10*6/uL (4.20-5.50); Red Cell Distribution Width 15.2 % (11.0-16.0); White Blood Count 6.4 X10*3/uL (4.8-10.8)
[2023-01-10 14:11] LABS: INTERNATIONAL NORM RATIO 1.6 (0.9-1.1); Prothrombin Time 19.3 SEC (10.0-13.1)
[2023-01-10 14:17] LABS: Alanine Aminotransferase 9 U/L (0-31); Albumin Level 3.1 g/dL (3.5-5.0); Alkaline Phosphatase 85 U/L (39-117); Anion Gap 12 (12-20); Aspartate Amino Transferase 9 U/L (5-31); Bilirubin Total 0.3 mg/dL (0.0-1.0); Blood Urea Nitrogen 28 mg/dL (9-16); Calcium 8.3 mg/dL (8.4-10.2); Carbon Dioxide 29 mmol/L (22-29); Chloride 104 mmol/L (96-108); Creatinine Clr Calc Pharmacy 29.8; Estimated Glomerular Filt Rate 33; Glucose Random 131 mg/dL (60-115); Potassium 3.9 mmol/L (3.3-5.1); Sodium 141 mmol/L (135-145); Total Protein 5.5 g/dL (6.5-8.0)
[2023-01-10 16:08] LABS: Glucose, Whole Blood 109 mg/dL (60-115)
[2023-01-10 16:36] VITALS: BP 144/59; PULSE 68; RESP 20; TEMP 36.9; O2SAT 94
--- NOTE | 2023-01-10 17:25 | PC.NURSE ---
straight cath done as ordered, clear yellow urine noted in catheter bag. pt tolerated well. incontinent care done.
[2023-01-10 18:05] LABS: Appearance Urine Clear; Color Urine Yellow; Glucose Urine UA Negative (Negative); Leukocyte Esterase Urine Trace (Negative); Nitrite Urine Negative (Negative); PH 5.5 (5.0-9.0); UMIC TRIGGER UACC YES; Urine Blood Negative (Negative); Urine Ketones Negative (Negative); Urine Protein Negative (Neg-Trace)
[2023-01-10 18:30] VITALS: BP 144/50; PULSE 73; RESP 18; TEMP 36.8; O2SAT 93
[2023-01-10 18:38] LABS: Bacteria Urine 3+ (None Seen); RBC Urine 0-2 /HPF (0-2); Squamous Epithelial Cell Urine 0-2 /HPF (0-2); WBC Urine 0-5 /HPF (0-5)
[2023-01-10] MEDS: Loperamide HCl 2 MG CAPSULE PO (19:40)
[2023-01-10 21:30] VITALS: BP 153/53; PULSE 69; RESP 14; TEMP 36.8; O2SAT 94
--- NOTE | 2023-01-10 21:49 | PC.NURSE ---
this rn contacted pt for ride home. pt awaiting for to pick pt up
--- NOTE | 2023-01-10 22:26 | PC.NURSE ---
pt utilized wheelchair at discharge. pt calm and cooperative. iv removed at discharge. pt discharged to waiting room to await ride from . given discharge packet. pt verbalized understanding of discharge plan
[2023-01-11 10:34] LABS: Adenovirus F 40/41 Not Detected (Not Detect.); Astrovirus Not Detected (Not Detect.); Campylobacter Not Detected (Not Detect.); Cryptosporidium Not Detected (Not Detect.); Cyclospora cayetanensis Not Detected (Not Detect.); E. coli EAEC Not Detected (Not Detect.); E. coli EPEC Not Detected (Not Detect.); E. coli ETEC Not Detected (Not Detect.); E. coli STEC Not Detected (Not Detect.); Entamoeba histolytica Not Detected (Not Detect.); Giardia lamblia Not Detected (Not Detect.); Norovirus GI/GII Not Detected (Not Detect.); Plesiomonas shigelloides Not Detected (Not Detect.); Rotavirus A Not Detected (Not Detect.); Salmonella Not Detected (Not Detect.); Sapovirus Not Detected (Not Detect.); Shigella sp./EIEC Not Detected (Not Detect.); Vibrio Not Detected (Not Detect.); Vibrio Cholerae Not Detected (Not Detect.); Yersinia enterocolitica Not Detected (Not Detect.)
== END 2023-01-10 22:30 | disposition home or self-care (01) ==
PROVIDERS: Student in an Organized Health Care Education/Training Program; Emergency Provider Emergency Medicine
DX: R19.7 Diarrhea, unspecified (principal); R10.32 Left lower quadrant pain; R10.31 Right lower quadrant pain; E11.22 Type 2 diabetes mellitus with diabetic chronic kidney disease; I13.0 Hypertensive heart and chronic kidney disease with heart failure and stage 1 through stage 4 chronic kidney disease, or unspecified chronic kidney disease; N18.4 Chronic kidney disease, stage 4 (severe); I50.32 Chronic diastolic (congestive) heart failure; I48.0 Paroxysmal atrial fibrillation; E66.9 Obesity, unspecified; Z68.35 Body mass index [BMI] 35.0-35.9, adult; Z79.01 Long term (current) use of anticoagulants; Z79.4 Long term (current) use of insulin; Z79.899 Other long term (current) drug therapy
CPT/HCPCS: 36415; 51701; 74176; 80053; 81001; 82947; 85025; 85610; 87507; 93005; 99284

== ENCOUNTER → 2023-01-10 13:36 | Outpatient (BNV) | payer MEDICARE, SELFPAY | PROVIDERS: Emergency Provider Emergency Medicine; Visit Provider Internal Medicine Cardiovascular Disease | DX: I49.1 Atrial premature depolarization (principal) | CPT/HCPCS: 93010 ==

== ENCOUNTER 2023-02-12 23:57 | Emergency (ER) | payer MEDICARE, SELFPAY ==
--- NOTE | ~2023-02-12 | XR_ITS ---
EXAMINATION: XR CHEST CLINICAL INFORMATION: Shortness of breath. Chest pain. COMPARISON: 12/16/2022 TECHNIQUE: Frontal view of the chest was obtained. FINDINGS: Cardiac leads overlie the chest. Additional tubing over the right neck. The lungs are well expanded. There is no focal consolidation, edema, or effusion. No pneumothorax. The cardiomediastinal silhouette is within normal limits of size with a calcified aorta. No acute osseous abnormality. XR/XR chest 1V IMPRESSION: No acute pulmonary disease.
[2023-02-13] VITALS: BP 126/44; BP 139/80; PULSE 60; PULSE 80; RESP 16; TEMP 36.4; O2SAT 95; O2SAT 97; BMI 35.7
--- NOTE | 2023-02-13 | ECG_ITS ---
Test Reason : CP/SOB Blood Pressure : / mmHG Vent. Rate : 076 BPM Atrial Rate : 000 BPM P-R Int : 000 ms QRS Dur : 154 ms QT Int : 448 ms P-R-T Axes : 000 001 156 degrees QTc Int : 504 ms Normal sinus rhythm with PAC's Left bundle branch block Abnormal ECG When compared with ECG of 10-JAN-2023 13:45, T wave amplitude has increased in Anterior leads Referred By: Generic ED Physician Electronically Signed By:JIN NUNEZ
[2023-02-13 00:41] LABS: MANUAL DIFF FLAG NO
[2023-02-13 00:43] LABS: Basophils Percent Auto 0.4 % (0-2); Eosinophils Percent Auto 0.4 % (0-4); Hematocrit 24.1 % (37.0-47.0); Hemoglobin 7.8 g/dl (12.0-16.0); Imm Gran Abs Auto 0.02 X10*3/uL (0.00-0.03); Imm Gran Pct Auto 0.2 % (0.0-0.4); Lymphocytes Percent Auto 12.4 % (20-40); Mean Corpuscular HGB Conc 32.4 g/dl (31.0-35.0); Mean Corpuscular Hemoglobin 26.3 pg (27.0-33.0); Mean Corpuscular Volume 81.1 fL (80.0-98.0); Mean Platelet Volume 11.4 fL (9.4-12.3); Monocytes Percent Auto 12.6 % (2-11); Neutrophils Absolute Auto 6.1 x10*3/uL (2.0-8.3); Platelet Count 308 X10*3/uL (160-400); Red Blood Count 2.97 X10*6/uL (4.20-5.50); Red Cell Distribution Width 16.2 % (11.0-16.0); White Blood Count 8.2 X10*3/uL (4.8-10.8)
[2023-02-13 00:49] LABS: VBG Base Excess -1.2 mmol/L; VBG HCO3 24 mmol/L (22-26); VBG pCO2 41 mmHg; VBG pH 7.36 (7.32-7.43); VBG pO2 68 mmHg
[2023-02-13 00:52] LABS: Venous Blood Gas Refer to POC result
[2023-02-13 01:11] LABS: Alanine Aminotransferase 15 U/L (0-31); Albumin Level 2.1 g/dL (3.5-5.0); Alkaline Phosphatase 97 U/L (39-117); Anion Gap 12 (12-20); Aspartate Amino Transferase 9 U/L (5-31); Bilirubin Direct < 0.2 mg/dL (0.0-0.5); Bilirubin Total 0.2 mg/dL (0.0-1.0); Blood Urea Nitrogen 76 mg/dL (9-16); Calcium 7.6 mg/dL (8.4-10.2); Carbon Dioxide 25 mmol/L (22-29); Chloride 104 mmol/L (96-108); Creatinine Clr Calc Pharmacy 19.6; Estimated Glomerular Filt Rate 20; Glucose Random 211 mg/dL (60-115); Potassium 4.9 mmol/L (3.3-5.1); Sodium 136 mmol/L (135-145); Total Protein 4.1 g/dL (6.5-8.0)
--- NOTE | 2023-02-13 01:28 | ED.SOB ---
HPI - SOB/Dyspnea General Chief Complaint: Dyspnea Stated Complaint: sob with cp Time Seen by Provider: 02/13/23 01:28 Source: patient Mode of arrival: EMS Limitations: no limitations History of Present Illness HPI Narrative: 77-year-old female with history of HFpEF, diabetes, pulmonary HTN, T2DM,? chronic back/neck pain secondary to spinal stenosis,?paroxysmal atrial fibrillation on Eliquis ,?hypertension just discharged home on 12/19 when she was admitted for acute respiratory failure requiring ICU admission and BiPAP comes back as she started feeling shortness of breath again when ambulates and also noticed increased leg swelling. Patient lives with her who is elderly and sick does not have much help at home looking for some help at home or rehab patient did complain about chest tightness and pain into the right side of the chest in the whole body to the RN but none to myself Related Data Home Medications Medication Instructions Recorded Confirmed levothyroxine 50 mcg tablet 50 mcg PO DAILY@0600 10/11/22 12/16/22 diphenhydramine HCl 25 mg capsule 25 mg DAILY PRN Allergic Symptoms 10/17/22 12/16/22 (Benadryl) docusate sodium 100 mg capsule 100 mg PO DAILY PRN Constipation 11/27/22 12/16/22 (Colace) metoclopramide HCl 5 mg tablet 5 mg PO QID 11/27/22 12/16/22 acetaminophen 325 mg tablet 650 mg PO Q6H PRN Pain 12/16/22 12/16/22 (Tylenol) oxycodone 10 mg tablet 10 mg PO QID PRN Pain 12/16/22 12/16/22 sucralfate 1 gram tablet 1 g PO QID 12/16/22 12/16/22 trazodone 50 mg tablet 50 - 100 mg PO BEDTIME PRN Insomnia 12/16/22 12/16/22 Previous Rx's Medication Instructions Recorded omeprazole 20 mg capsule,delayed 20 mg PO BID #30 caps 08/22/20 release amlodipine 5 mg tablet 5 mg PO DAILY 30 days #30 tabs 11/07/22 apixaban 5 mg tablet (Eliquis) 5 mg PO BID 30 days #60 tabs 11/07/22 insulin lispro 100 unit/mL See Protocol subcut QIDACHS #10 mL 11/07/22 subcutaneous solution (Humalog U-100 Insulin) amiodarone 200 mg tablet 200 mg PO DAILY 30 days #90 tabs 12/05/22 isosorbide mononitrate 60 mg 60 mg PO DAILY 30 days #90 tabs 12/05/22 tablet,extended release 24 hr furosemide 40 mg tablet (Lasix) 40 mg PO QAM #30 tabs 12/19/22 Allergies Allergy/AdvReac Type Severity Reaction Status Date / Time levofloxacin [From LEVAQUIN] AdvReac Mild flushed Verified 02/13/23 00:25 Review of Systems Review of Systems: Yes all other systems are reviewed and are negative PMFSH Past Medical History Medical History CKD (chronic kidney disease), stage IV Congestive heart failure Depressive disorder Diabetes Diastolic CHF HTN (hypertension) PAF (paroxysmal atrial fibrillation) Spinal stenosis Thyroid activity decreased Family History Family History Other Diabetes Social History Social History Household Members: Spouse and Family Housing: House Do you presently have visiting nurse or other home services: Yes Alcohol intake: never Patient Tobacco Use Status: Never used Tobacco Second Hand Smoke Exposure: No Advance Directives: Yes Advance Directives on File: Yes Advance Directives Date on File: 12/16/22 service: No Current occupational status: retired Physical Exam Vital Signs: Vital Signs: Last Vital Signs Temp 98.1 F 02/13/23 05:50 Pulse 64 02/13/23 05:50 Resp 17 02/13/23 05:50 BP 110/49 L 02/13/23 05:50 Pulse Ox 98 02/13/23 05:50 O2 Del Method Room Air 02/13/23 05:50 BMI result Body Mass Index 35.7 Appearance: Alert. Oriented X3. No acute distress. Eyes: PERRLA, No Nystagmus ENT: Pharynx normal. Oral Mucosa moist Neck: Normal inspection. Neck supple. CVS: Irregularly irregular cardiac rhythm. Pulses normal. Respiratory: No respiratory distress. Equal air entry bilateral, no wheezing/rales/rhonchi Abdomen: Soft and nontender. Bowel sounds are present, no mass palpable, no CVA tenderness Skin: Skin warm and dry. Normal skin color. Normal skin turgor. Extremities: 3+ lower extremity edema. No calf tenderness Neuro: Oriented X 3. No motor deficit. No sensory deficit.No cerebellar signs , cranial nerves II-XII intact Medications Administered Discontinued Medications Generic Name Dose Route Start Last Admin Trade Name Freq PRN Reason Stop Dose Admin Furosemide 60 mg 02/13/23 02:43 02/13/23 03:19 Furosemide 100 Mg/10 Ml Vial IVPUSH 02/13/23 02:44 60 mg ONCE ONE Administration Protocol Medical Decision Making Medical Decision Making [facility] Narrative: Patient saturating 95% on ambulation at room air does not have much help at home would like to go to rehab,consult case management Lab Data MDM Lab Attestation statement: I reviewed the patient's lab results. 02/13/23 00:36 02/13/23 00:36 Labs: Lab Results 02/13/23 02/13/23 02/13/23 Range/Units 00:36 00:36 00:36 WBC 8.2 (4.8-10.8) X10*3/uL RBC 2.97 L (4.20-5.50) X10*6/uL Hgb 7.8 L (12.0-16.0) g/dl Hct 24.1 L (37.0-47.0) % MCV 81.1 (80.0-98.0) fL MCH 26.3 L (27.0-33.0) pg MCHC 32.4 (31.0-35.0) g/dl RDW 16.2 H (11.0-16.0) % Plt Count 308 (160-400) X10*3/uL MPV 11.4 (9.4-12.3) fL Immature Gran % (Auto) 0.2 (0.0-0.4) % Neut % (Auto) 74.0 H (45-73) % Lymph % (Auto) 12.4 L (20-40) % Winn % (Auto) 12.6 H (2-11) % Eos % (Auto) 0.4 (0-4) % Baso % (Auto) 0.4 (0-2) % Lymph # (Auto) 1.0 L (1.2-4.9) X10*3/uL Winn # (Auto) 1.0 (0.1-1.2) X10*3/uL Eos # (Auto) 0.0 (0.0-0.4) X10*3/uL Baso # (Auto) 0.0 (0.0-0.2) X10*3/uL Abs Immat Gran (auto) 0.02 (0.00-0.03) X10*3/uL Absolute Neuts (auto) 6.1 (2.0-8.3) x10*3/uL Absolute Nucleated RBC 0.000 (0.0-0.012) X10*3/uL Nucleated RBC % (auto) 0.0 (0.0-0.2) /100WBC VBG pH (7.32-7.43) VBG pCO2 mmHg VBG pO2 mmHg VBG HCO3 (22-26) mmol/L VBG O2 Saturation % VBG Base Excess mmol/L Sodium 136 (135-145) mmol/L Potassium 4.9 D (3.3-5.1) mmol/L Chloride 104 (96-108) mmol/L Carbon Dioxide 25 (22-29) mmol/L Anion Gap 12 (12-20) BUN 76 H (9-16) mg/dL Creatinine 2.36 H (0.5-1.4) mg/dL Estim Creat Clear Calc 19.6 Estimated GFR 20 Random Glucose 211 H (60-115) mg/dL Calcium 7.6 L D (8.4-10.2) mg/dL Total Bilirubin 0.2 (0.0-1.0) mg/dL Direct Bilirubin < 0.2 (0.0-0.5) mg/dL AST 9 (5-31) U/L ALT 15 (0-31) U/L Alkaline Phosphatase 97 (39-117) U/L Troponin I High Sens 27.0 H D (<3.5-17.0) ng/L B-Natriuretic Peptide (<100) pg/mL Total Protein 4.1 L (6.5-8.0) g/dL Albumin 2.1 L (3.5-5.0) g/dL 02/13/23 02/13/23 Range/Units 00:36 00:39 WBC (4.8-10.8) X10*3/uL RBC (4.20-5.50) X10*6/uL Hgb (12.0-16.0) g/dl Hct (37.0-47.0) % MCV (80.0-98.0) fL MCH (27.0-33.0) pg MCHC (31.0-35.0) g/dl RDW (11.0-16.0) % Plt Count (160-400) X10*3/uL MPV (9.4-12.3) fL Immature Gran % (Auto) (0.0-0.4) % Neut % (Auto) (45-73) % Lymph % (Auto) (20-40) % Winn % (Auto) (2-11) % Eos % (Auto) (0-4) % Baso % (Auto) (0-2) % Lymph # (Auto) (1.2-4.9) X10*3/uL Winn # (Auto) (0.1-1.2) X10*3/uL Eos # (Auto) (0.0-0.4) X10*3/uL Baso # (Auto) (0.0-0.2) X10*3/uL Abs Immat Gran (auto) (0.00-0.03) X10*3/uL Absolute Neuts (auto) (2.0-8.3) x10*3/uL Absolute Nucleated RBC (0.0-0.012) X10*3/uL Nucleated RBC % (auto) (0.0-0.2) /100WBC VBG pH 7.36 (7.32-7.43) VBG pCO2 41 mmHg VBG pO2 68 mmHg VBG HCO3 24 (22-26) mmol/L VBG O2 Saturation 91.0 % VBG Base Excess -1.2 mmol/L Sodium (135-145) mmol/L Potassium (3.3-5.1) mmol/L Chloride (96-108) mmol/L Carbon Dioxide (22-29) mmol/L Anion Gap (12-20) BUN (9-16) mg/dL Creatinine (0.5-1.4) mg/dL Estim Creat Clear Calc Estimated GFR Random Glucose (60-115) mg/dL Calcium (8.4-10.2) mg/dL Total Bilirubin (0.0-1.0) mg/dL Direct Bilirubin (0.0-0.5) mg/dL AST (5-31) U/L ALT (0-31) U/L Alkaline Phosphatase (39-117) U/L Troponin I High Sens (<3.5-17.0) ng/L B-Natriuretic Peptide 90 (<100) pg/mL Total Protein (6.5-8.0) g/dL Albumin (3.5-5.0) g/dL Independent Interpretation I performed an independent interpretation of an: EKG Interpretation: Atrial fibrillation with ventricular rate 76 beats per minute LBB. Block no acute ST-T change Discharge Plan Discharge Clinical Impression: Chronic heart failure with preserved ejection fraction (HFpEF), PAF (paroxysmal atrial fibrillation), Chronic kidney disease (CKD) Patient Disposition: Still a Patient Prescriptions: No Action amiodarone 200 mg tablet 200 mg PO DAILY 30 Days Qty: 90 1RF isosorbide mononitrate 60 mg tablet extended release 24 hr 60 mg PO DAILY 30 Days Qty: 90 1RF Protocol: Hold for SBP< HOLD for SBP < : 90 omeprazole 20 mg capsule,delayed release(DR/EC) 20 mg PO BID Qty: 30 0RF diphenhydramine HCl [Benadryl] 25 mg Capsule 25 mg DAILY PRN (Reason: Allergic Symptoms) Eliquis 5 mg Tablet 5 mg PO BID 30 Days Qty: 60 0RF amlodipine 5 mg Tablet 5 mg PO DAILY 30 Days Qty: 30 0RF Protocol: Hold for SBP< HOLD for SBP < : 90 insulin lispro [Humalog U-100 Insulin] 100 unit/mL Solution See Protocol subcut QIDACHS Qty: 10 0RF Protocol: Insulin Correction Scale Less than or equal to 110 ---- Give (units): 0 111 to 150 Give (units): 0 151 to 200 Give (units): 2 201 to 250 Give (units): 4 251 to 300 Give (units): 6 301 to 350 Give (units): 8 Greater than 350 Give (units): 10 Call MD if Blood Glucose > : 350 trazodone 50 mg tablet 50 - 100 mg PO BEDTIME PRN (Reason: Insomnia) sucralfate 1 gram tablet 1 g PO QID oxycodone 10 mg tablet 10 mg PO QID PRN (Reason: Pain) acetaminophen [Tylenol] 325 mg Tablet 650 mg PO Q6H PRN (Reason: Pain) furosemide [Lasix] 40 mg tablet 40 mg PO QAM Qty: 30 0RF levothyroxine 50 mcg tablet 50 mcg PO DAILY@0600 metoclopramide HCl 5 mg tablet 5 mg PO QID docusate sodium [Colace] 100 mg capsule 100 mg PO DAILY PRN (Reason: Constipation)
[2023-02-13 01:44] LABS: B Type Natriuretic Peptide 90 pg/mL (<100)
--- NOTE | 2023-02-13 01:53 | MHC.EDTECH ---
Assisted pt to ambulate for ambulatory oxygen saturation. Patients oxygen saturation down to 82% while walking and back up to 96% with rest. Provider Christiano made aware.
--- NOTE | 2023-02-13 02:49 | MHC.EDTECH ---
Assisted pt to ambulate for ambulatory oxygen saturation. Patients oxygen saturation 95%
--- NOTE | 2023-02-13 02:52 | PC.NURSE ---
Ambulatory oxygen trial attempted once more per Shahid SILVA. Pt with oxygen saturation of 95%. However pt states she is concerned about about going home because she is feeling weaker at home and not able to get around as well at home. Pt initially was refusing facility placement but now agreeable to seeing case management and PT for rehab placement if she can get into [facility]. Provider made aware. Plan for Lasix and PT/CM consult.
--- NOTE | 2023-02-13 03:16 | PC.NURSE ---
Purewick applied per EDTA
[2023-02-13 03:17] VITALS: BP 121/44; PULSE 64; RESP 16; O2SAT 99
[2023-02-13] MEDS: Furosemide 100 MG/10 ML VIAL 60 MG IVPUSH (03:19)
[2023-02-13 05:50] VITALS: BP 110/49; PULSE 64; RESP 17; TEMP 36.7; O2SAT 98
[2023-02-13 07:19] VITALS: BP 114/46; PULSE 72; RESP 12; TEMP 37.1; O2SAT 96
--- NOTE | 2023-02-13 07:22 | PC.NURSE ---
Pt stated she has no chest pain at this time, c/o back pain, stated she takes scheduled pain medication, Pt offered to reposition at this time and yes that helps sometimes. Pt repositioned and stated that feels better. call panda with in reach.
--- NOTE | 2023-02-13 10:00 | PHA.MEDREC ---
Pharmacy Consult ? Medication Reconciliation Pharmacy has completed the medication reconciliation. Adalberto, clinical internal affairs investigator, spoke with patient. Pateint confirmed medications. Was not sure if they were on Farxiga. I called [facility] who reported patient does not take Farxiga. Inga Mason, PharmD
--- NOTE | 2023-02-13 11:19 | MHC.CM.PN ---
Addendum entered by Maryellen Cunningham 02/13/23 15:49: INSURANCE AUTH OBTAINED BY CATHERINE DEE. BLS TRANSPORT BOOKED FOR 6 PM VIA [facility]. RN AWARE. STILL UNABLE TO REACH CHRISTIANNE VIA TELEPHONE. MD AWARE THE SNF IS REQUESTING SCRIPT FOR NARCOTIC. Addendum entered by Maryellen Cunningham 02/13/23 14:59: UNABLE TO LEAVE A MESSAGE FOR HCP/, NO ANSWERING MACHINE, WILL CONTINUE TO TRY TO REACH. Addendum entered by Maryellen Cunningham 02/13/23 14:54: CATHERINE DEE [facility] HAS OFFERED A STR BED PENDING INSURANCE AUTH. THEY WILL START THE AUTH PROCESS WITH LARRY. RN UPDATED. HCP/ MADE AWARE. CM WILL CONTINUE TO FOLLOW FOR INSURANCE APPROVAL. Addendum entered by Maryellen Cunningham 02/13/23 13:58: P.T. IS RECOMMENDING STR, REFERRALS SENT TO SNF'S CONTRACTED WITH HER INSURANCE, AWAITING RESPONSES. Original Note: CM RECEIVED CM CONSULT IN ED. MET WITH PT AT BEDSIDE. PT LIVES WITH . USES WALKER/CANE NEEDED. LATELY SHE FEELS LIKE SHE NEEDS WALKER ALL THE TIME. PT IS CURRENTLY ACTIVE WITH [facility] FOR P.T. PT FEELS SHE WILL NEED REHAB TO GET STRONGER. AWAITING P.T. EVAL TO DETERMINE DISPOSITION. +HCP ON FILE. NO COVID [facility] PCP DR. KETURAH JUAREZ. WILL NEED BLS TRANSPORT.
[2023-02-13 13:18] VITALS: BP 114/46; PULSE 72; O2SAT 96
--- NOTE | 2023-02-13 14:29 | MHC.EDTECH ---
assumed care of this patient. patient was dry and clean. patient was able to take a few steps with a 2 assist to the bed in her room. patient is comfortable and asked for the remote.
--- NOTE | 2023-02-13 14:57 | MHC.EDTECH ---
reconnected patients purewick for patient to use.
[2023-02-13 15:38] LABS: Glucose, Whole Blood 180 mg/dL (60-115)
[2023-02-13 16:36] LABS: Glucose, Whole Blood 155 mg/dL (60-115)
[2023-02-13] MEDS: Insulin Lispro 100 UNIT/ML 3 ML VIAL SUBCUT (17:40)
[2023-02-13] MEDS: Metoclopramide HCl 5 MG TABLET PO (17:47)
--- NOTE | 2023-02-13 19:12 | PC.NURSE ---
Patient picked up by EMS for transport to [facility] (per report) @ 19:10. Patient left in stable condition with all belongings, discharge paperwork, and her paper prescription.
== END 2023-02-13 19:10 | disposition skilled nursing facility (03) ==
PROVIDERS: Emergency Medicine; Internal Medicine; Emergency Provider Emergency Medicine Emergency Medical Services; PCP Physician Assistant
DX: R06.00 Dyspnea, unspecified (principal); E11.22 Type 2 diabetes mellitus with diabetic chronic kidney disease; I13.0 Hypertensive heart and chronic kidney disease with heart failure and stage 1 through stage 4 chronic kidney disease, or unspecified chronic kidney disease; N18.9 Chronic kidney disease, unspecified; I50.33 Acute on chronic diastolic (congestive) heart failure; I48.0 Paroxysmal atrial fibrillation; Z79.01 Long term (current) use of anticoagulants; Z79.899 Other long term (current) drug therapy; Z79.4 Long term (current) use of insulin
CPT/HCPCS: 36415; 71045; 80048; 80076; 82803; 82947; 83880; 84484; 85025; 93005; 96374; 97162; 99285; J1940

== ENCOUNTER 2023-03-03 12:20 | Outpatient (AMB) | payer MEDICARE, SELFPAY ==
[2023-03-03 12:31] VITALS: BP 72/42; PULSE 86; BMI 33.2
--- NOTE | 2023-03-03 12:31 | MHC.OFFVIS ---
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 Accompanied by: Self / Same As Patient Allergies levofloxacin [From LEVAQUIN] Adverse Reaction (Mild, Verified 03/03/23 12:34) flushed Medication List - Last Reconciled 03/03/23 by Jeremie Barber MD acetaminophen (Tylenol) 650 mg PO Q6H PRN amiodarone 200 mg PO DAILY 30 days amlodipine 5 mg See Protocol PO DAILY 30 days apixaban (Eliquis) 5 mg PO BID 30 days buspirone 5 mg PO TID diphenhydramine HCl (Benadryl) 25 mg DAILY PRN docusate sodium (Colace) 100 mg PO DAILY PRN ferrous sulfate (Iron (ferrous sulfate)) 325 mg PO DAILY furosemide (Lasix) 40 mg PO DAILY insulin lispro (Humalog U-100 Insulin) See Protocol units subcut QIDACHS isosorbide mononitrate ER 60 mg See Protocol PO DAILY 30 days levothyroxine 50 mcg PO DAILY@0600 mecobalamin (vitamin B12) 1,000 mcg PO DAILY ondansetron HCl 4 mg PO Q8H oxycodone 10 mg PO QID PRN oxycodone 10 mg PO QID PRN potassium chloride ER 10 mEq PO BID sucralfate 1 g PO QID trazodone 50 - 150 mg PO BEDTIME PRN HPI HPI Comments History of Present Illness Details Hannah returns for follow-up. She carries a diagnosis of diastolic congestive heart failure as well as pulmonary hypertension. Overall, looks frail and does not feel too good. She states she gets dizzy intermittently. Blood pressure has been checked several times and remains quite low today. Otherwise, she also has chronic kidney disease. is also here for the appointment. [facility] Medical History CKD (chronic kidney disease), stage IV Congestive heart failure Depressive disorder Diabetes Diastolic CHF HTN (hypertension) PAF (paroxysmal atrial fibrillation) Spinal stenosis Thyroid activity decreased Family History Other Diabetes Social History Household Members: Spouse and Family Housing: House Do you presently have visiting nurse or other home services: Yes Alcohol intake: never Patient Tobacco Use Status: Never used Tobacco Second Hand Smoke Exposure: No Advance Directives Date on File: 12/16/22 service: No Current occupational status: retired Review of Systems Const Denies weakness ENT Denies dizziness Card Denies chest pain, Denies chest pain with activity, Denies syncope, Denies rapid heart rate, Denies pedal edema, Denies edema, Denies leg edema, Denies lightheadedness, Denies palpitations, Denies dyspnea, Denies dyspnea on exertion and Denies orthopnea Resp Denies cough, Denies dyspnea and Denies dyspnea on exertion GI Denies hematochezia and Denies change in stool character Musc Denies abnormal gait, Denies muscle cramps, Denies muscle weakness, Denies numbness, Denies radiating pain into limb and Denies tingling Neuro Denies abnormal gait, Denies dizziness, Denies syncope, Denies numbness, Denies tingling and Denies weakness Endo Denies palpitations Physical Exam Vital Signs: Last Vital Signs Pulse 86 03/03/23 12:31 BP 72/42 L 03/03/23 12:31 BMI result Body Mass Index 33.2 Const Other: Frail General: comfortable, no acute distress, ill appearing and tired appearing Orientation/consciousness: patient oriented x3 HEENT Other: Unremarkable Head: Yes normal to inspection Neck Neck: Yes normal visual inspection Chest Chest palpation & inspection: normal inspection of the chest Resp Other: Reduced breath sounds but there is also difficulty auscultation. Cardio Palpation: normal PMI Heart sounds: S1 normal heart sound present, S2 normal heart sound present, no gallops, no murmurs and no rubs GI Palpation (GI): Soft to palpation Back/Spine/Pelvis Other: unremarkable Skin General skin exam: no rashes or lesions noted Neuro General: patient oriented x3 Extrem Other: 1 +swelling bilateral. General: Yes normal to inspection Psych Mental Status: mental status grossly normal Office Procedures EKG Details: EKG with sinus rhythm at 85/Min; sinus arrhythmia and possibly some PACs. Left bundle-branch block pattern. [id number], Complete Assessment & Plan Assessment & Plan (1) Hypotension: Code(s): I95.9 - Hypotension, unspecified Plan: Blood pressure quite 72/42 mm Hg. Check several times and remains low. Will need ER evaluation for the same. Patient agreeable. Also discussed with aspirin. (2) Chronic heart failure with preserved ejection fraction (HFpEF): Code(s): I50.32 - Chronic diastolic (congestive) heart failure Plan: Volume status difficult to assess. Remains on a small dose of diuretic per list but she also has history of significant renal dysfunction. Will need fresh labs before deciding further. (3) PAF (paroxysmal atrial fibrillation): Code(s): I48.0 - Paroxysmal atrial fibrillation Plan: Currently on amiodarone/Eliquis. In EKG, sinus rhythm today. (4) Pulmonary hypertension: Code(s): I27.20 - Pulmonary hypertension, unspecified Plan: Significant pulmonary hypertension noted on the recent echocardiogram. RVSP was 70 mm Hg. Likely all from left heart dysfunction. Seems too frail for any hemodynamic workup. Plan Informed ER physician and sending to ER for further evaluation. Patient taken by wheelchair. Medications: Discontinued furosemide 40 mg PO QAM 30 tabs 0RF prednisone 10 mg PO DAILY 9 days 18 tabs 0RF T78.40XA - Allergy, unspecified, initial encounter Coding Level of Care Code Est Pt Level 5 (10159) Diagnoses Hypotension I95.9 Chronic heart failure with preserved ejection fraction (HFpEF) I50.32 PAF (paroxysmal atrial fibrillation) I48.0 Pulmonary hypertension I27.20 CPT Codes EKG - CPT: 04859-[id number], Complete ([id number])
== END 2023-03-03 13:09 | disposition home or self-care (01) ==
PROVIDERS: PCP Physician Assistant; Referring Provider Physician Assistant; Visit Provider Internal Medicine
DX: I95.9 Hypotension, unspecified (principal); I50.32 Chronic diastolic (congestive) heart failure; I48.0 Paroxysmal atrial fibrillation; I27.20 Pulmonary hypertension, unspecified
CPT/HCPCS: 93010; 99215

== ENCOUNTER → 2023-03-03 12:20 | Outpatient (BNVA) | payer MEDICARE, SELFPAY | PROVIDERS: PCP Physician Assistant; Referring Provider Physician Assistant; Visit Provider Internal Medicine | DX: I50.32 Chronic diastolic (congestive) heart failure (principal); I95.9 Hypotension, unspecified; I48.0 Paroxysmal atrial fibrillation; I27.20 Pulmonary hypertension, unspecified; Z79.01 Long term (current) use of anticoagulants; Z79.899 Other long term (current) drug therapy | CPT/HCPCS: 93005; 99212 ==

== ENCOUNTER 2023-03-03 13:12 | Inpatient (IN) | payer MEDICARE, OTHER, SELFPAY ==
[2023-03-03] VITALS (10 sets, daily range): BP systolic 90–137; BP diastolic 37–61; PULSE 52–75; RESP 15–19; TEMP 36.3–37.1; O2SAT 94–98; BMI 30.8
--- NOTE | ~2023-03-03 | XR_ITS ---
EXAMINATION: XR CHEST CLINICAL INFORMATION: Chest pain COMPARISON: Chest x-ray February 13, 2023 TECHNIQUE: Frontal view of the chest was obtained. FINDINGS: Cardiac silhouette is normal in size. The lungs are well aerated. There is no lobar consolidation. No pleural effusion or pneumothorax. Degenerative changes of the spine. XR/XR chest 1V IMPRESSION: No acute pulmonary pathology.
--- NOTE | 2023-03-03 13:13 | ECG_ITS ---
Test Reason : bradycardia Blood Pressure : / mmHG Vent. Rate : 071 BPM Atrial Rate : 071 BPM P-R Int : 000 ms QRS Dur : 146 ms QT Int : 470 ms P-R-T Axes : 000 -02 149 degrees QTc Int : 510 ms Undetermined rhythm Left bundle branch block Abnormal ECG When compared with ECG of 13-FEB-2023 00:15, Current undetermined rhythm precludes rhythm comparison, needs review Referred By: Generic ED Physician Electronically Signed By:JIN NUNEZ
--- NOTE | 2023-03-03 13:25 | PC.NURSE ---
Patient arrived from cardiology with complaints of low BP, sob, and dizziness. Patient reports the walk to the office was difficult for her and she has difficulty with long distances. Reports lightheaded with exertion since October. no sob at rest, nsr on monitor, bp 105//41. Reports feeling nauseous for the last few days. States chest pain started with exertion after walking into office.
--- NOTE | 2023-03-03 13:33 | ED_ITS ---
HPI - General Adult General Chief complaint: General Medical Stated complaint: Bradycardia Time Seen by Provider: 03/03/23 13:22 Source: patient and family Mode of arrival: wheelchair Limitations: no limitations History of Present Illness HPI narrative: Patient comes to the emergency room via wheelchair from the cardiology office. Patient reports that yesterday she was discharged from rehab. She has been at home for 1 day. Today, patient had an appointment with her transcribing operator head Dr. Barber. Patient states that she has been complaining of shortness of breath with exertion and lightheadedness for several weeks. Today, when she got to the cardiology office, vitals were checked, blood pressure was in the low 70s. Patient states that this is a sensation she has been feeling for several weeks, takes her several minutes to recuperate. Patient states she has a bit of pressure that gets worse with exertion but no significant pain. Related Data Home Medications Medication Instructions Recorded Confirmed levothyroxine 50 mcg tablet 50 mcg PO DAILY@0600 10/11/22 03/03/23 diphenhydramine HCl 25 mg capsule 25 mg DAILY PRN Allergic Symptoms 10/17/22 03/03/23 (Benadryl) docusate sodium 100 mg capsule 100 mg PO DAILY PRN Constipation 11/27/22 03/03/23 (Colace) acetaminophen 325 mg tablet 650 mg PO Q6H PRN Pain 12/16/22 03/03/23 (Tylenol) oxycodone 10 mg tablet 10 mg PO QID PRN Pain 12/16/22 03/03/23 sucralfate 1 gram tablet 1 g PO QID 12/16/22 03/03/23 furosemide 40 mg tablet (Lasix) 40 mg PO DAILY 02/13/23 03/03/23 potassium chloride 10 mEq 10 meq PO BID 02/13/23 03/03/23 tablet,extended release buspirone 5 mg tablet 5 mg PO TID 03/03/23 03/03/23 ferrous sulfate 325 mg (65 mg 325 mg PO DAILY 03/03/23 03/03/23 iron) tablet (Iron (ferrous sulfate)) mecobalamin (vitamin B12) 1,000 1,000 mcg PO DAILY 03/03/23 03/03/23 mcg lozenges ondansetron HCl 4 mg tablet 4 mg PO Q8H 03/03/23 03/03/23 trazodone 50 mg tablet 50 - 150 mg PO BEDTIME PRN 03/03/23 03/03/23 Previous Rx's Medication Instructions Recorded amlodipine 5 mg tablet 5 mg PO DAILY 30 days #30 tabs 11/07/22 apixaban 5 mg tablet (Eliquis) 5 mg PO BID 30 days #60 tabs 11/07/22 insulin lispro 100 unit/mL See Protocol subcut QIDACHS #10 mL 11/07/22 subcutaneous solution (Humalog U-100 Insulin) amiodarone 200 mg tablet 200 mg PO DAILY 30 days #90 tabs 12/05/22 isosorbide mononitrate 60 mg 60 mg PO DAILY 30 days #90 tabs 12/05/22 tablet,extended release 24 hr oxycodone 10 mg tablet 10 mg PO QID PRN pain #30 tabs 02/13/23 Allergies Allergy/AdvReac Type Severity Reaction Status Date / Time levofloxacin [[facility] AdvReac Mild flushed Verified 03/03/23 12:34 Review of Systems Review of Systems: Constitutional : No Weight loss, No Fever, No Chills, No Night Sweats, No Fatigue, No Malaise ENT/Mouth : No Hearing loss, No Ear Pain, No Nasal Congestion, No Sinus Pain, No Hoarseness, No sore throat, No Rhinorrhea, No Swallowing Difficulty Eyes: No Eye Pain, No Swelling, No Redness, No Foreign Body, No Discharge, No Vision Changes Cardiovascular : Complaining of chest pressure with dyspnea on exertion and worsening lower extremity edema Respiratory : No Cough, No Sputum, No Wheezing, No Smoke Exposure, No Dyspnea Gastrointestinal : No Nausea, No Vomiting, No Diarrhea, No Constipation, No abdominal Pain, No Hematochezia, No Melena Genitourinary : no irregular bleeding, No Dysuria, No Urinary Frequency, No Hematuria, No Urinary Incontinence, No Urgency, No Flank Pain, No Urinary Flow Changes, No Hesitancy Musculoskeletal : No joint pain, No Myalgias, No Joint Swelling Skin : No Skin Lesions, No rash Neuro : No Weakness, No Numbness, No Paresthesias, No Loss of Consciousness, No Dizziness, No Headache Psych : No Anxiety/Panic, No Depression, No SI/HI/AH/VH, No Social Issues, Heme/Lymph: No Bruising, No Bleeding,No Lymphadenopathy Endocrine : No Polyuria, No Polydipsia, No Temperature Intolerance [facility] Past Medical History Medical History CKD (chronic kidney disease), stage IV Congestive heart failure Depressive disorder Diabetes Diastolic CHF HTN (hypertension) PAF (paroxysmal atrial fibrillation) Spinal stenosis Thyroid activity decreased Family History Family History Other Diabetes Social History Social History Household Members: Spouse and Family Housing: House Do you presently have visiting nurse or other home services: Yes Alcohol intake: former Patient Tobacco Use Status: Never used Tobacco Smoked in Last 30 Days: No Second Hand Smoke Exposure: No Use of substances other than those prescribed or required for medical reasons: No Advance Directives: Yes Advance Directives on File: Yes Advance Directives Date on File: 12/16/22 service: No Current occupational status: retired Physical Exam ED Vital Signs: Vital Signs - 24 hr 03/03/23 13:23 03/03/23 16:13 03/03/23 17:11 Temperature 97.7 F 97.6 F Pulse Rate 75 68 75 Respiratory Rate 18 15 16 Blood Pressure 105/41 L 90/48 L 93/41 L Pulse Oximetry 98 96 98 Oxygen Delivery Method Room Air Room Air Room Air BMI result Body Mass Index 30.8 Const Other: Appearance: Alert. Oriented X3. Seems weak Eyes: Pupils equal, round and reactive to light. ENT: Pharynx normal. Neck: Normal inspection. Neck supple. No lymph nodes noted. No crepitus CVS: Normal heart rate and rhythm. Pulses normal. Normal S1 and S2, blood pressure 105/41 Respiratory: No respiratory distress. Breath sounds normal. No Wheezing. No rales Abdomen: Soft and nontender. No rigidity. No distention. On digital rectal exam, brown stool present Skin: Skin warm and dry. Normal skin color. Normal skin turgor. Extremities: +3 pitting edema, worse on the left leg, No Lacerations. No Rash Neuro: Oriented X 3. No motor deficit. No sensory deficit. Moving all extremities. No slurred speech. CN 2 through 12 grossly intact Psych: calm, cooperative, normal affect Course Course Course Narrative: -patient got out of rehab yesterday, does not seem to be doing well at home. Complaining of weakness and shortness of breath with exertion which started even before she was discharged from rehab. -patient complaining of chest pressure, no chest pain. -of patient's labs and imaging pending Medications Administered Discontinued Medications Generic Name Dose Route Start Last Admin Trade Name Herrera PRN Reason Stop Dose Admin Sodium Chloride 1,000 mls @ 999 mls/hr 03/03/23 13:15 03/03/23 15:26 Ns IV 03/03/23 14:15 Infused .Q1H1M YADY Infusion Medical Decision Making Medical Decision Making [facility] Narrative: -my interpretation of labs: Creatinine 2.2, chronic. Patient's hemoglobin hematocrit 7.9 and 25.7 respectively. Patient's hemoglobin has been gradually dropping since September of 2022. Patient is on Eliquis for atrial fibrillation. -guaiac stool test: Positive, likely secondary from Eliquis -I discussed with the patient that she would benefit from a blood transfusion. Discussed risks versus benefits, patient decided to go ahead with the blood transfusion. We will have to go very slowly due to risk of TACO, patient has tree of CHF. -patient's current blood pressure 110 systolic. -I discussed the patient with Dr. Jim, patient being admitted Differential Diagnosis Differential Diagnoses: The differential diagnosis associated with the presentation includes (Anemia, GI bleed, CHF, deconditioning, orthostatic hypotension) Admission/Observation Consideration of admission/observation: Escalation of care including admission/observation considered Consult Healthcare Provider Management of the patient was discussed with: Hospitalist Lab Data [facility] Lab Attestation statement: I reviewed the patient's lab results. 03/03/23 13:50 03/03/23 15:02 Labs: Lab Results 03/03/23 03/03/23 03/03/23 Range/Units 13:50 13:50 13:50 WBC 5.5 (4.8-10.8) X10*3/uL RBC 3.04 L (4.20-5.50) X10*6/uL Hgb 7.9 L (12.0-16.0) g/dl Hct 25.7 L (37.0-47.0) % MCV 84.5 (80.0-98.0) fL MCH 26.0 L (27.0-33.0) pg MCHC 30.7 L (31.0-35.0) g/dl RDW 20.1 H (11.0-16.0) % Plt Count 373 (160-400) X10*3/uL MPV 10.7 (9.4-12.3) fL Immature Gran % (Auto) 0.2 (0.0-0.4) % Neut % (Auto) 75.5 H (45-73) % Lymph % (Auto) 15.3 L (20-40) % Carolina % (Auto) 8.4 (2-11) % Eos % (Auto) 0.2 (0-4) % Baso % (Auto) 0.4 (0-2) % Lymph # (Auto) 0.8 L (1.2-4.9) X10*3/uL Carolina # (Auto) 0.5 (0.1-1.2) X10*3/uL Eos # (Auto) 0.0 (0.0-0.4) X10*3/uL Baso # (Auto) 0.0 (0.0-0.2) X10*3/uL Abs Immat Gran (auto) 0.01 (0.00-0.03) X10*3/uL Absolute Neuts (auto) 4.2 (2.0-8.3) x10*3/uL Absolute Nucleated RBC 0.000 (0.0-0.012) X10*3/uL Nucleated RBC % (auto) 0.0 (0.0-0.2) /100WBC Sodium (135-145) mmol/L Potassium (3.3-5.1) mmol/L Chloride (96-108) mmol/L Carbon Dioxide (22-29) mmol/L Anion Gap (12-20) BUN (9-16) mg/dL Creatinine (0.5-1.4) mg/dL Estim Creat Clear Calc Estimated GFR Random Glucose (60-115) mg/dL Lactic Acid 1.8 (0.5-2.0) mmol/L Calcium (8.4-10.2) mg/dL Magnesium (1.6-2.6) mg/dL Total Bilirubin (0.0-1.0) mg/dL AST (5-31) U/L ALT (0-31) U/L Alkaline Phosphatase (39-117) U/L Troponin I High Sens (<3.5-17.0) ng/L B-Natriuretic Peptide 125 H (<100) pg/mL Total Protein (6.5-8.0) g/dL Albumin (3.5-5.0) g/dL TSH (0.32-4.0) uIU/mL Stool Occult Blood (NEGATIVE) Blood Type Antibody Screen Crossmatch 03/03/23 03/03/23 03/03/23 Range/Units 15:02 15:02 16:22 WBC (4.8-10.8) X10*3/uL RBC (4.20-5.50) X10*6/uL Hgb (12.0-16.0) g/dl Hct (37.0-47.0) % MCV (80.0-98.0) fL MCH (27.0-33.0) pg MCHC (31.0-35.0) g/dl RDW (11.0-16.0) % Plt Count (160-400) X10*3/uL MPV (9.4-12.3) fL Immature Gran % (Auto) (0.0-0.4) % Neut % (Auto) (45-73) % Lymph % (Auto) (20-40) % Carolina % (Auto) (2-11) % Eos % (Auto) (0-4) % Baso % (Auto) (0-2) % Lymph # (Auto) (1.2-4.9) X10*3/uL Carolina # (Auto) (0.1-1.2) X10*3/uL Eos # (Auto) (0.0-0.4) X10*3/uL Baso # (Auto) (0.0-0.2) X10*3/uL Abs Immat Gran (auto) (0.00-0.03) X10*3/uL Absolute Neuts (auto) (2.0-8.3) x10*3/uL Absolute Nucleated RBC (0.0-0.012) X10*3/uL Nucleated RBC % (auto) (0.0-0.2) /100WBC Sodium 137 (135-145) mmol/L Potassium 4.4 (3.3-5.1) mmol/L Chloride 108 (96-108) mmol/L Carbon Dioxide 23 (22-29) mmol/L Anion Gap 10 L (12-20) BUN 59 H (9-16) mg/dL Creatinine 2.20 H (0.5-1.4) mg/dL Estim Creat Clear Calc 21.9 Estimated GFR 22 Random Glucose 148 H (60-115) mg/dL Lactic Acid (0.5-2.0) mmol/L Calcium 7.2 L (8.4-10.2) mg/dL Magnesium 1.7 (1.6-2.6) mg/dL Total Bilirubin 0.2 (0.0-1.0) mg/dL AST 10 (5-31) U/L ALT 16 (0-31) U/L Alkaline Phosphatase 67 (39-117) U/L Troponin I High Sens 33.5 H (<3.5-17.0) ng/L B-Natriuretic Peptide (<100) pg/mL Total Protein 3.9 L (6.5-8.0) g/dL Albumin 2.0 L (3.5-5.0) g/dL TSH 2.17 (0.32-4.0) uIU/mL Stool Occult Blood (NEGATIVE) Blood Type O Positive Antibody Screen NEGATIVE Crossmatch See Detail 03/03/23 Range/Units 16:22 WBC (4.8-10.8) X10*3/uL RBC (4.20-5.50) X10*6/uL Hgb (12.0-16.0) g/dl Hct (37.0-47.0) % MCV (80.0-98.0) fL MCH (27.0-33.0) pg MCHC (31.0-35.0) g/dl RDW (11.0-16.0) % Plt Count (160-400) X10*3/uL MPV (9.4-12.3) fL Immature Gran % (Auto) (0.0-0.4) % Neut % (Auto) (45-73) % Lymph % (Auto) (20-40) % Carolina % (Auto) (2-11) % Eos % (Auto) (0-4) % Baso % (Auto) (0-2) % Lymph # (Auto) (1.2-4.9) X10*3/uL Carolina # (Auto) (0.1-1.2) X10*3/uL Eos # (Auto) (0.0-0.4) X10*3/uL Baso # (Auto) (0.0-0.2) X10*3/uL Abs Immat Gran (auto) (0.00-0.03) X10*3/uL Absolute Neuts (auto) (2.0-8.3) x10*3/uL Absolute Nucleated RBC (0.0-0.012) X10*3/uL Nucleated RBC % (auto) (0.0-0.2) /100WBC Sodium (135-145) mmol/L Potassium (3.3-5.1) mmol/L Chloride (96-108) mmol/L Carbon Dioxide (22-29) mmol/L Anion Gap (12-20) BUN (9-16) mg/dL Creatinine (0.5-1.4) mg/dL Estim Creat Clear Calc Estimated GFR Random Glucose (60-115) mg/dL Lactic Acid (0.5-2.0) mmol/L Calcium (8.4-10.2) mg/dL Magnesium (1.6-2.6) mg/dL Total Bilirubin (0.0-1.0) mg/dL AST (5-31) U/L ALT (0-31) U/L Alkaline Phosphatase (39-117) U/L Troponin I High Sens (<3.5-17.0) ng/L B-Natriuretic Peptide (<100) pg/mL Total Protein (6.5-8.0) g/dL Albumin (3.5-5.0) g/dL TSH (0.32-4.0) uIU/mL Stool Occult Blood POSITIVE (NEGATIVE) Blood Type Antibody Screen Crossmatch Independent Interpretation I performed an independent interpretation of an: EKG and Plain X-Ray (My interpretation of chest x-ray, no pulmonary edema) Interpretation: Interpretation of EKG, left bundle-branch block, heart rate 71, no ST segment depression or elevation, nonspecific T-wave abnormalities, QTC 510 Radiology Impression Discussion of test interpretation with radiology: I have reviewed the radiologist's reading. Radiologist Impression: Cardiac silhouette is normal in size. The lungs are well aerated. There is no lobar consolidation. No pleural effusion or pneumothorax. Degenerative changes of the spine. XR/XR chest 1V IMPRESSION: No acute pulmonary pathology. Independent Historian Clinical information obtained from an independent historian. History obtained from or confirmed by: Spouse Critical Care Time Critical Care Time Critical Care Time: Yes Total Critical Care Time: 75 Attestation: I have personally provided critical care time. Time includes review of lab data, radiology results, discussion with consultants, and monitoring for potential decompensation. Intervention performed as documented. Discharge Plan Discharge Clinical Impression: Anemia, Hypotension, GI bleed Patient Disposition: Admitted As Inpatient Prescriptions: No Action amiodarone 200 mg tablet 200 mg PO DAILY 30 Days Qty: 90 1RF isosorbide mononitrate 60 mg tablet extended release 24 hr 60 mg PO DAILY 30 Days Qty: 90 1RF Protocol: Hold for SBP< HOLD for SBP < : 90 diphenhydramine HCl [Benadryl] 25 mg Capsule 25 mg DAILY PRN (Reason: Allergic Symptoms) Eliquis 5 mg Tablet 5 mg PO BID 30 Days Qty: 60 0RF amlodipine 5 mg Tablet 5 mg PO DAILY 30 Days Qty: 30 0RF Protocol: Hold for SBP< HOLD for SBP < : 90 insulin lispro [Humalog U-100 Insulin] 100 unit/mL Solution See Protocol subcut QIDACHS Qty: 10 0RF Protocol: Insulin Correction Scale Less than or equal to 110 ---- Give (units): 0 111 to 150 Give (units): 0 151 to 200 Give (units): 2 201 to 250 Give (units): 4 251 to 300 Give (units): 6 301 to 350 Give (units): 8 Greater than 350 Give (units): 10 Call MD if Blood Glucose > : 350 sucralfate 1 gram tablet 1 g PO QID oxycodone 10 mg tablet 10 mg PO QID PRN (Reason: Pain) acetaminophen [Tylenol] 325 mg Tablet 650 mg PO Q6H PRN (Reason: Pain) potassium chloride 10 mEq tablet extended release 10 meq PO BID furosemide [Lasix] 40 mg tablet 40 mg PO DAILY oxycodone 10 mg tablet 10 mg PO QID PRN (Reason: pain) Qty: 30 0RF Rx Instructions: Partial Fill upon patient request. levothyroxine 50 mcg tablet 50 mcg PO DAILY@0600 mecobalamin (vitamin B12) 1,000 mcg lozenge 1,000 mcg PO DAILY Rx Instructions: allow to dissolve in mouth OR may chew lightly before swallowing ferrous sulfate [Iron (ferrous sulfate)] 325 mg (65 mg iron) tablet 325 mg PO DAILY ondansetron HCl 4 mg tablet 4 mg PO Q8H trazodone 50 mg tablet 50 - 150 mg PO BEDTIME PRN buspirone 5 mg tablet 5 mg PO TID docusate sodium [Colace] 100 mg capsule 100 mg PO DAILY PRN (Reason: Constipation)
[2023-03-03] MEDS: 0.9 % Sodium Chloride 1,000 ML 999 ML IV (13:54)
[2023-03-03 13:57] LABS: MANUAL DIFF FLAG NO
[2023-03-03 13:59] LABS: Basophils Percent Auto 0.4 % (0-2); Eosinophils Percent Auto 0.2 % (0-4); Hematocrit 25.7 % (37.0-47.0); Hemoglobin 7.9 g/dl (12.0-16.0); Imm Gran Abs Auto 0.01 X10*3/uL (0.00-0.03); Imm Gran Pct Auto 0.2 % (0.0-0.4); Lymphocytes Absolute Auto 0.8 X10*3/uL (1.2-4.9); Lymphocytes Percent Auto 15.3 % (20-40); Mean Corpuscular HGB Conc 30.7 g/dl (31.0-35.0); Mean Corpuscular Volume 84.5 fL (80.0-98.0); Mean Platelet Volume 10.7 fL (9.4-12.3); Monocytes Absolute Auto 0.5 X10*3/uL (0.1-1.2); Monocytes Percent Auto 8.4 % (2-11); Neutrophils Absolute Auto 4.2 x10*3/uL (2.0-8.3); Neutrophils Percent Auto 75.5 % (45-73); Platelet Count 373 X10*3/uL (160-400); Red Blood Count 3.04 X10*6/uL (4.20-5.50); Red Cell Distribution Width 20.1 % (11.0-16.0); White Blood Count 5.5 X10*3/uL (4.8-10.8)
[2023-03-03 14:35] LABS: Lactic Acid 1.8 mmol/L (0.5-2.0)
[2023-03-03 14:42] LABS: B Type Natriuretic Peptide 125 pg/mL (<100)
[2023-03-03 15:47] LABS: Alanine Aminotransferase 16 U/L (0-31); Alkaline Phosphatase 67 U/L (39-117); Anion Gap 10 (12-20); Aspartate Amino Transferase 10 U/L (5-31); Bilirubin Total 0.2 mg/dL (0.0-1.0); Blood Urea Nitrogen 59 mg/dL (9-16); Calcium 7.2 mg/dL (8.4-10.2); Carbon Dioxide 23 mmol/L (22-29); Chloride 108 mmol/L (96-108); Creatinine Clr Calc Pharmacy 21.9; Estimated Glomerular Filt Rate 22; Glucose Random 148 mg/dL (60-115); Magnesium 1.7 mg/dL (1.6-2.6); Potassium 4.4 mmol/L (3.3-5.1); Sodium 137 mmol/L (135-145); Total Protein 3.9 g/dL (6.5-8.0)
[2023-03-03 15:48] LABS: Troponin-I High Sensitivity 33.5 ng/L (<3.5-17.0)
[2023-03-03 16:02] LABS: TSH reflex Free T4 2.17 uIU/mL (0.32-4.0)
[2023-03-03 16:31] LABS: OBS Int Ctl Valid YES; OBS1 POSITIVE (NEGATIVE)
--- NOTE | 2023-03-03 16:33 | MHC.EDTECH ---
THIS PCT ASSUMED CARE OF PATIENT AT 1500 ,VITALS SIGN TAKEN ,TYPE AND SCREEN DRAWN AND SENT TO LAB ,PT WAS BUCKLE SEWER INTO HOSPITAL ATTIRE ,PT RESTING QUIETLY IN BED .
--- NOTE | 2023-03-03 17:23 | PHA.MEDREC ---
Pharmacy Consult ? Medication Reconciliation Pharmacy has completed the medication reconciliation. Patient just discharged from [facility] on 03/02/23. Contacted them for discharge medication list. Inga Mason, LokiD
--- NOTE | 2023-03-03 17:50 | PM.IMHP ---
History of Present Illness Date of Service: 03/03/23 Attending physician on admission: Roger Jim Chief Complaint: hypotension, ramirez, lightheadedness 77 year old female with history pulmonary hypertension, heart failure with preserved ejection fraction, paroxysmal atrial fibrillation anticoagulated with Eliquis, CKD stage 4, insulin-dependent type 2 diabetes, spinal stenosis, and depression presented to the ED earlier today from her cardiology office due to an episode of hypotension with blood pressure 72/42. The patient tells me that for the last few weeks, she has been symptomatic with dyspnea on exertion, chest pain on exertion, and positional lightheadedness. Reports symptoms resolved with rest. Denies any syncopal events. She is also reporting abdominal pain and inability to initiate micturition. She states that this happens occasionally at home as well. Denies any dysuria, hematuria, increased frequency or urgency. On arrival, vital stable but blood pressure is soft with systolic pressure ranging 90-105. There is no leukocytosis. H/H 7.9/25.7%, MCV 84.5. On review of chart, it appears there has been a gradual decrease in H/H since September. At that time, hemoglobin 11.1/hematocrit 34.3%. She does endorse nausea and dry heaves on a near daily basis. She is somewhat of a vague historian announced about melena or hematochezia. Does tell me she had a single episode of bright red blood per rectum but tells my colleague, has had maroon-colored stool. She did have EGD in 08/2020 which shows severe erosive esophagitis and gastritis and colonoscopy at that time as unremarkable except for inflammatory polyp. Renal function baseline. Electrolyte levels normal. Albumin 2.0. Troponin 33.5. BNP 125. EKG shows atrial fibrillation, rate 71 with left bundle branch block (present on prior EKGs) and no acute ST or depressions. Chest x-ray negative for any acute pulmonary abnormality. In the ed given 1 L IVF and will be transfused 1 unit PRBC. Pt also noted to be anxious stating that she is going to and tearful. Reassurance offered. Denies SI/HI. Review of Systems Review of Systems: General: No fevers, malaise, unintentional weight loss HEENT: No blurred vision, diplopia. No sore throat, nasal congestion, rhinorrhea, sinus pain, ear pain Cardiovascular: +cp, +lightheadedness. No palpitations, or leg edema Respiratory: +RAMIREZ. No shortness of breath at rest, wheezing, cough GI: +abd pain, +nausea, +vomiting. No diarrhea, constipation, melena, hematochezia : +urinary retention. No dysuria, hematuria, increased urinary frequency, decreased urinary output MSK: No myalgia, back pain Neuro: No headaches, weakness, paresthesias Psych: No SI/HI Skin: No rashes or lesions [facility] Medical History CKD (chronic kidney disease), stage IV Congestive heart failure Depressive disorder Diabetes Diastolic CHF HTN (hypertension) PAF (paroxysmal atrial fibrillation) Spinal stenosis Thyroid activity decreased Family History Other Diabetes Social History Household Members: Spouse and Family Housing: House Do you presently have visiting nurse or other home services: Yes Alcohol intake: former Patient Tobacco Use Status: Never used Tobacco Smoked in Last 30 Days: No Second Hand Smoke Exposure: No Use of substances other than those prescribed or required for medical reasons: No Advance Directives: Yes Advance Directives on File: Yes Advance Directives Date on File: 12/16/22 service: No Current occupational status: retired [employer] Allergies Allergy/AdvReac Type Severity Reaction Status Date / Time levofloxacin [From LEVAQUIN] AdvReac Mild flushed Verified 03/03/23 12:34 Active Medications: Current Medications Acetaminophen (Acetaminophen 325 Mg Tablet) 650 mg PO Q6H PRN PRN Reason: Pain, Mild (Pain Scale 1-3) Docusate Sodium (Docusate Sodium 100 Mg Capsule) 100 mg PO DAILY PRN PRN Reason: Constipation Ondansetron HCl (Ondansetron Hcl 4 Mg/2 Ml Vial) 4 mg IVPUSH Q8H PRN PRN Reason: Nausea and Vomiting Sodium Chloride (0.9 % Sodium Chloride Flush 3 Ml Syringe) 3 ml IVFLUSH [facility] Medications Medication Instructions Recorded Confirmed Last Taken Type levothyroxine 50 mcg tablet 50 mcg PO DAILY@0600 10/11/22 03/03/23 12/16/22 06:00 History diphenhydramine HCl 25 mg capsule 25 mg DAILY PRN Allergic Symptoms 10/17/22 03/03/23 Unknown History (Benadryl) docusate sodium 100 mg capsule 100 mg PO DAILY PRN Constipation 11/27/22 03/03/23 Unknown History (Colace) acetaminophen 325 mg tablet 650 mg PO Q6H PRN Pain 12/16/22 03/03/23 Unknown History (Tylenol) sucralfate 1 gram tablet 1 g PO QID 12/16/22 03/03/23 12/16/22 09:00 History furosemide 40 mg tablet (Lasix) 40 mg PO DAILY 02/13/23 03/03/23 Unknown History potassium chloride 10 mEq 10 meq PO BID 02/13/23 03/03/23 Unknown History tablet,extended release buspirone 5 mg tablet 5 mg PO TID 03/03/23 03/03/23 Unknown History calcium carbonate 500 mg calcium 1,000 mg PO Q4H PRN Indigestion 03/03/23 03/03/23 Unknown History (1,250 mg) chewable tablet cyanocobalamin (vitamin B-12) 1,000 mcg PO DAILY 03/03/23 03/03/23 Unknown History 1,000 mcg tablet ferrous sulfate 325 mg (65 mg 325 mg PO DAILY 03/03/23 03/03/23 Unknown History iron) tablet (Iron (ferrous sulfate)) omeprazole 20 mg capsule,delayed 20 mg PO BID 03/03/23 03/03/23 Unknown History release ondansetron HCl 4 mg tablet 4 mg PO Q8H 03/03/23 03/03/23 Unknown History trazodone 50 mg tablet 25 mg PO Q12H PRN Anxiety 03/03/23 03/03/23 Unknown History Physical Exam Vital Signs and Narrative: Vital Signs: Last Vital Signs Temp 97.6 F 03/03/23 17:11 Pulse 75 03/03/23 17:11 Resp 16 03/03/23 17:11 BP 93/41 L 03/03/23 17:11 Pulse Ox 98 03/03/23 17:11 O2 Del Method Room Air 03/03/23 17:11 BMI result Body Mass Index 30.8 Constitutional - Awake and Alert, No apparent distress Eyes - PERRLA, EOMI Cardiovascular - S1S2, RRR, No edema Respiratory - Normal lung expansion, Normal respiratory effort, No respiratory distress, CTA bilaterally Gastrointestinal - mild distended with diffuse mild ttp; +BS; No rebound or guarding Extremities - no calf tenderness bilaterally, no swelling Skin - Warm/Dry Neurological - Alert & oriented x3 Psychological - depressed mood, tearful, anxious appearing Results Labs 03/03/23 13:50 03/03/23 15:02 Labs: Laboratory Results - last 24 hr 03/03/23 03/03/23 03/03/23 13:50 13:50 13:50 MCV 84.5 MCH 26.0 L MCHC 30.7 L RDW 20.1 H Plt Count 373 MPV 10.7 Immature Gran % (Auto) 0.2 Neut % (Auto) 75.5 H Lymph % (Auto) 15.3 L [place] % (Auto) 8.4 Eos % (Auto) 0.2 Baso % (Auto) 0.4 Lymph # (Auto) 0.8 L [place] # (Auto) 0.5 Eos # (Auto) 0.0 Baso # (Auto) 0.0 Abs Immat Gran (auto) 0.01 Absolute Neuts (auto) 4.2 Absolute Nucleated RBC 0.000 Nucleated RBC % (auto) 0.0 Anion Gap Estim Creat Clear Calc Estimated GFR Random Glucose Lactic Acid 1.8 Calcium Magnesium Total Bilirubin AST ALT Alkaline Phosphatase B-Natriuretic Peptide 125 H Total Protein Albumin TSH Stool Occult Blood Blood Type Antibody Screen Crossmatch 03/03/23 03/03/23 03/03/23 15:02 16:22 16:22 MCV MCH MCHC RDW Plt Count MPV Immature Gran % (Auto) Neut % (Auto) Lymph % (Auto) [place] % (Auto) Eos % (Auto) Baso % (Auto) Lymph # (Auto) [place] # (Auto) Eos # (Auto) Baso # (Auto) Abs Immat Gran (auto) Absolute Neuts (auto) Absolute Nucleated RBC Nucleated RBC % (auto) Anion Gap 10 L Estim Creat Clear Calc 21.9 Estimated GFR 22 Random Glucose 148 H Lactic Acid Calcium 7.2 L Magnesium 1.7 Total Bilirubin 0.2 AST 10 ALT 16 Alkaline Phosphatase 67 B-Natriuretic Peptide Total Protein 3.9 L Albumin 2.0 L TSH 2.17 Stool Occult Blood POSITIVE Blood Type O Positive Antibody Screen NEGATIVE Crossmatch See Detail Imaging Radiologist's Impressions: Impressions Chest X-Ray 03/03/23 14:10 IMPRESSION: No acute pulmonary pathology. Assessment and Plan (1) Anemia: Status: Acute (2) Hypotension: Status: Acute (3) GI bleed: Status: Acute (4) Urinary retention: Status: Acute Plan 77 year old female with history pulmonary hypertension, heart failure with preserved ejection fraction, paroxysmal atrial fibrillation anticoagulated with Eliquis, CKD stage 4, insulin-dependent type 2 diabetes, spinal stenosis, and depression admitted for symptomatic anemia with GI bleed. #Acute on chronic symptomatic anemia- due to chronic blood loss -H/H 7.9/25.7. Gradually decreasing since September -transfused 1 unit packed red blood cells in the ED -stool occult blood positive. History of severe erosive esophagitis and gastritis on EGD -IV PPI -gastroenterology consult. Reassess GI bleeding and CBC a.m., possible EGD evening or Thursday morning per GI -follow CBC -monitor on telemetry -hold Eliquis # hypotension -due to hypovolemia -improved with IV fluids. Receiving 1 unit packed red blood cells in the ED -closely monitor blood pressures and hold p.o. antihypertensives except for Lasix as patient is at risk for fluid overload. Resume as appropriate -monitor on telemetry #Urinary retention -pt reports difficulty with initiating micturition -bladder scan in ED revealed 415 mL urine. Straight catheter ordered -bladder scan Q shift. If truly retaining, consider urology # paroxysmal atrial fibrillation-rate controlled -hold Eliquis due to above -continue amiodarone -not on rate control drugs # heart failure with preserved ejection fraction -euvolemic on exam -continue Lasix # CKD stage 4 -renal function baseline # insulin-dependent type 2 diabetes -POC glucose -diabetic diet -Humalog on sliding scale #Depression -uncontrolled. No SI but fixated on the thought of -Psych consult -Continue home meds DVT prophylaxis- SCPs DNI Patient requires inpatient stay of at least 2 midnights for management of acute on chronic symptomatic blood-loss anemia with hypotension requiring blood transfusion, cardiac monitoring, close monitoring of blood counts, and expert consultation Time Spent With Patient Time: Total time managing care of this patient today ____ minutes. Quality Stroke Does the patient have a stroke diagnosis?: No VTE Prior VTE?: No VTE Risk Level:: Medical - moderate - high VTE Device Contraindication: N/A - Device Ordered VTE Drug Contraindication: Treatment Not Indicated
--- NOTE | 2023-03-03 18:02 | PC.NURSE ---
bladder scan re-checked- 415mls- provider notified
[2023-03-03 18:34] LABS: Appearance Urine Clear; Color Urine Yellow; Glucose Urine UA Negative (Negative); Leukocyte Esterase Urine Negative (Negative); Nitrite Urine Positive (Negative); UMIC TRIGGER UACC YES; Urine Blood Negative (Negative); Urine Ketones Negative (Negative); Urine Protein Negative (Neg-Trace)
[2023-03-03 19:03] LABS: Glucose, Whole Blood 156 mg/dL (60-115)
--- NOTE | 2023-03-03 19:07 | PC.NURSE ---
blood transfusion running per order, temp 97.5. No sob noted.
[2023-03-03 20:17] LABS: Bacteria Urine 4+ (None Seen); RBC Urine 0-2 /HPF (0-2); Squamous Epithelial Cell Urine 0-2 /HPF (0-2); UACC Culture Trigger YES; WBC Urine 0-5 /HPF (0-5)
[2023-03-03 20:37] LABS: Glucose, Whole Blood 150 mg/dL (60-115)
[2023-03-03] MEDS: Potassium Chloride ER 10 MEQ TABLET.ER PO (20:38)
[2023-03-03] MEDS: oxyCODONE HCl Immed Release 5 MG TABLET 10 MG PO (20:38)
[2023-03-03] MEDS: traZODone HCL 25 MG HALFTAB PO (20:39)
[2023-03-03] MEDS: busPIRone HCl 5 MG TABLET PO (20:39)
[2023-03-03] MEDS: Pantoprazole Sodium 40 MG/10 ML VIAL IVPUSH (20:40)
[2023-03-03] MEDS: Sucralfate 1 GM TABLET PO (20:40)
[2023-03-04] VITALS (7 sets, daily range): BP systolic 103–126; BP diastolic 57–67; PULSE 54–73; RESP 15–20; TEMP 36.1–36.8; O2SAT 92–97; BMI 30.8
--- NOTE | 2023-03-04 01:41 | PC.NURSE ---
patient arrived to floor at approximately 20:15 via stretcher from the ED with blood running. At that time patient reported feeling anxious and tried crawling out of bed. camera was put in patients room for safety. patient stated i want to go Home. and asked if she was going to . patient reassured numerous times that she is here to receive care for her anemia and given PRN Trazadone. patient reported 10/10 back pain and was medicated with oxycodone for pain. a new IV was started in the patients left forearm that is working well. patient sleeping comfortably in bed with call panda in reach and bed alarm on.
[2023-03-04] MEDS: oxyCODONE HCl Immed Release 5 MG TABLET 10 MG PO ×3 (04:44→18:56)
[2023-03-04] MEDS: Pantoprazole Sodium 40 MG/10 ML VIAL IVPUSH ×2 (06:02→17:01)
[2023-03-04] MEDS: Levothyroxine Sodium 50 MCG TABLET PO (06:02)
[2023-03-04 07:32] LABS: MANUAL DIFF FLAG NO
[2023-03-04 07:35] LABS: Glucose, Whole Blood 101 mg/dL (60-115)
[2023-03-04 07:35] LABS: Basophils Percent Auto 0.6 % (0-2); Eosinophils Percent Auto 0.6 % (0-4); Hematocrit 29.4 % (37.0-47.0); Hemoglobin 9.2 g/dl (12.0-16.0); Imm Gran Abs Auto 0.01 X10*3/uL (0.00-0.03); Imm Gran Pct Auto 0.2 % (0.0-0.4); Mean Corpuscular HGB Conc 31.3 g/dl (31.0-35.0); Mean Corpuscular Hemoglobin 26.7 pg (27.0-33.0); Mean Corpuscular Volume 85.5 fL (80.0-98.0); Mean Platelet Volume 10.8 fL (9.4-12.3); Monocytes Absolute Auto 0.5 X10*3/uL (0.1-1.2); Monocytes Percent Auto 9.1 % (2-11); Neutrophils Absolute Auto 3.5 x10*3/uL (2.0-8.3); Neutrophils Percent Auto 69.5 % (45-73); Platelet Count 319 X10*3/uL (160-400); Red Blood Count 3.44 X10*6/uL (4.20-5.50); Red Cell Distribution Width 20.8 % (11.0-16.0)
[2023-03-04 07:48] LABS: Anion Gap 13 (12-20); Blood Urea Nitrogen 50 mg/dL (9-16); Calcium 7.4 mg/dL (8.4-10.2); Carbon Dioxide 24 mmol/L (22-29); Chloride 109 mmol/L (96-108); Creatinine Clr Calc Pharmacy 26.4; Estimated Glomerular Filt Rate 27; Glucose Random 108 mg/dL (60-115); Potassium 4.4 mmol/L (3.3-5.1); Sodium 142 mmol/L (135-145)
--- NOTE | 2023-03-04 08:40 | MHC.CM.PN ---
IMM 03/04. Pt admitted with symptomatic anemia. Pt lives at home with her and 2 sisters. Pt reports she was at rehab for the past few weeks and returned home for only 1 day prior to coming to the hospital. Pt very emotional about this and stated I'll never be able to go home. Pt states she was active with [facility] for PT/OT/SN and [facility] services. Pt uses a rollater walker. HCP on file and verified. D/C plan is to return home with resumption of previous services. Pts can transport her home. PCP: [place] Raymundo
[2023-03-04] MEDS: Sucralfate 1 GM TABLET PO ×4 (08:52→20:56)
[2023-03-04] MEDS: Amiodarone HCL 200 MG TABLET PO (08:52)
[2023-03-04] MEDS: Cyanocobalamin (Vitamin B-12) 1,000 MCG TABLET 1000 MCG PO (08:52)
[2023-03-04] MEDS: busPIRone HCl 5 MG TABLET PO ×3 (08:52→20:56)
[2023-03-04] MEDS: traZODone HCL 25 MG HALFTAB PO ×2 (08:52→21:02)
[2023-03-04] MEDS: Potassium Chloride ER 10 MEQ TABLET.ER PO ×2 (08:52→20:56)
[2023-03-04] MEDS: Furosemide 40 MG TABLET PO (08:52)
[2023-03-04] MEDS: Ferrous Sulfate 324 MG TABLET.DR PO (08:52)
[2023-03-04] MEDS: 0.9 % Sodium Chloride Flush 3 ML SYRINGE IVFLUSH ×2 (08:53→15:55)
--- NOTE | 2023-03-04 11:01 | HO.PM.IMPN ---
Subjective Subjective Date of Service: 03/04/23 Interval History: Feels she is not getting better, although offers no acute complaints of chest pain, no palpitation, no lightheadedness, no dizziness, talking in full sentences, eating breakfast no nausea no vomiting no abdominal pain Chan catheter placed last night due to urinary retention with high postvoid residuals. Review of Systems All other system reviewed and negative. Physical Exam Vital Signs: Vital Signs: Last Vital Signs Temp 97.3 F 03/04/23 07:25 Pulse 67 03/04/23 07:25 Resp 18 03/04/23 07:25 BP 103/66 03/04/23 07:25 Pulse Ox 95 03/04/23 07:25 O2 Del Method Room Air 03/04/23 07:25 BMI result Body Mass Index 30.8 Const: Other: General awake alert x3 talking in full sentences, resting comfortably in no acute distress. Neck supple no JVD. CVS regular rate rhythm, Respiratory lungs clear to auscultation, no respiratory distress, no wheeze, no rhonchi. Gastrointestinal abdomen soft, nontender, bowel sounds audible, no guarding , no rigidity. Extremities no edema. Neuro nonfocal , speech clear. Skin no rash Psych depressed mood Objective Data Active Medications Acetaminophen (Acetaminophen 325 Mg Tablet) 650 mg PO Q6H PRN PRN Reason: Pain, Mild (Pain Scale 1-3) Amiodarone HCl (Amiodarone Hcl 200 Mg Tablet) 200 mg PO DAILY [facility] Last Admin: 03/04/23 08:52 Dose: 200 mg Documented By: SERVANDO Buspirone HCl (Buspirone Hcl 5 Mg Tablet) 5 mg PO TID [facility] Last Admin: 03/04/23 08:52 Dose: 5 mg Documented By: SERVANDO Calcium Carbonate (Calcium Carbonate 750 Mg Tab.Chew) 750 mg PO Q4H PRN PRN Reason: Indigestion Cyanocobalamin (Cyanocobalamin (Vitamin B-12) 1,000 Mcg Tablet) 1,000 mcg PO DAILY [facility] Last Admin: 03/04/23 08:52 Dose: 1,000 mcg Documented By: SERVANDO Dextrose (Dextrose 50 % 25 Gm/50 Ml Syringe) 25 gm IVPUSH Q15M PRN; Protocol PRN Reason: per Hypoglycemia Standing Ord. Diphenhydramine HCl (Diphenhydramine Hcl 25 Mg Capsule) 25 mg PO DAILY PRN PRN Reason: Allergic Symptoms Docusate Sodium (Docusate Sodium 100 Mg Capsule) 100 mg PO DAILY PRN PRN Reason: Constipation Ferrous Sulfate (Ferrous Sulfate 324 Mg Tablet.Dr) 324 mg PO DAILY [facility] Last Admin: 03/04/23 08:52 Dose: 324 mg Documented By: SERVANDO Furosemide (Furosemide 40 Mg Tablet) 40 mg PO DAILY [facility]; Protocol Last Admin: 03/04/23 08:52 Dose: 40 mg Documented By: SERVANDO Glucose (Glucose Gel 15 Gm Gel..Gram.) 15 gm PO Q15M PRN; Protocol PRN Reason: per Hypoglycemia Standing Ord. Insulin Human Lispro (Insulin Lispro 100 Unit/Ml 3 Ml Vial) 0 unit SUBCUT QIDACHS [facility]; Protocol Last Admin: 03/04/23 08:46 Dose: Not Given Documented By: SERVANDO Non-Admin Reason: No Insulin Coverage Levothyroxine Sodium (Levothyroxine Sodium 50 Mcg Tablet) 50 mcg PO DAILY@0600 [facility] Last Admin: 03/04/23 06:02 Dose: 50 mcg Documented By: MAYELIN Ondansetron HCl (Ondansetron Hcl 4 Mg/2 Ml Vial) 4 mg IVPUSH Q8H PRN PRN Reason: Nausea and Vomiting Oxycodone HCl (Oxycodone Hcl Immed Release 5 Mg Tablet) 10 mg PO QID PRN PRN Reason: Pain, Severe (Pain Scale 7-10) Last Admin: 03/04/23 04:44 Dose: 10 mg Documented By: MAYELIN Pantoprazole Sodium (Pantoprazole Sodium 40 Mg/10 Ml Vial) 40 mg IVPUSH BID@0630,1630 [facility] Last Admin: 03/04/23 06:02 Dose: 40 mg Documented By: MAYELIN Potassium Chloride (Potassium Chloride Er 10 Meq Tablet.Er) 10 meq PO BID [facility] Last Admin: 03/04/23 08:52 Dose: 10 meq Documented By: SERVANDO Sodium Chloride (0.9 % Sodium Chloride Flush 3 Ml Syringe) 3 ml IVFLUSH QSHIFT [facility] Last Admin: 03/04/23 08:53 Dose: 3 ml Documented By: SERVANDO Sucralfate (Sucralfate 1 Gm Tablet) 1 gm PO QID [facility] Last Admin: 03/04/23 08:52 Dose: 1 gm Documented By: SERVANDO Trazodone HCl (Trazodone Hcl 25 Mg Halftab) 25 mg PO Q12H PRN PRN Reason: Anxiety Last Admin: 03/04/23 08:52 Dose: 25 mg Documented By: SERVANDO Labs 03/04/23 07:28 03/04/23 07:28 Labs: Laboratory Results - last 24 hr 03/03/23 03/03/23 03/03/23 13:50 13:50 13:50 MCV 84.5 MCH 26.0 L MCHC 30.7 L RDW 20.1 H Plt Count 373 MPV 10.7 Immature Gran % (Auto) 0.2 Neut % (Auto) 75.5 H Lymph % (Auto) 15.3 L [place] % (Auto) 8.4 Eos % (Auto) 0.2 Baso % (Auto) 0.4 Lymph # (Auto) 0.8 L [place] # (Auto) 0.5 Eos # (Auto) 0.0 Baso # (Auto) 0.0 Abs Immat Gran (auto) 0.01 Absolute Neuts (auto) 4.2 Absolute Nucleated RBC 0.000 Nucleated RBC % (auto) 0.0 Anion Gap Estim Creat Clear Calc Estimated GFR POC Glucose Random Glucose Lactic Acid 1.8 Calcium Magnesium Total Bilirubin AST ALT Alkaline Phosphatase B-Natriuretic Peptide 125 H Total Protein Albumin TSH Urine Color Urine Appearance Urine pH Ur Specific [place] Urine Protein Urine Glucose (UA) Urine Ketones Urine Blood Urine Nitrite Ur Leukocyte Esterase Urine RBC Urine WBC Ur Squamous Epith Cells Urine Bacteria Hyaline Casts Stool Occult Blood Blood Type Antibody Screen Crossmatch 03/03/23 03/03/23 03/03/23 15:02 16:22 16:22 MCV MCH MCHC RDW Plt Count MPV Immature Gran % (Auto) Neut % (Auto) Lymph % (Auto) [place] % (Auto) Eos % (Auto) Baso % (Auto) Lymph # (Auto) [place] # (Auto) Eos # (Auto) Baso # (Auto) Abs Immat Gran (auto) Absolute Neuts (auto) Absolute Nucleated RBC Nucleated RBC % (auto) Anion Gap 10 L Estim Creat Clear Calc 21.9 Estimated GFR 22 POC Glucose Random Glucose 148 H Lactic Acid Calcium 7.2 L Magnesium 1.7 Total Bilirubin 0.2 AST 10 ALT 16 Alkaline Phosphatase 67 B-Natriuretic Peptide Total Protein 3.9 L Albumin 2.0 L TSH 2.17 Urine Color Urine Appearance Urine pH Ur Specific [place] Urine Protein Urine Glucose (UA) Urine Ketones Urine Blood Urine Nitrite Ur Leukocyte Esterase Urine RBC Urine WBC Ur Squamous Epith Cells Urine Bacteria Hyaline Casts Stool Occult Blood POSITIVE Blood Type O Positive Antibody Screen NEGATIVE Crossmatch See Detail 03/03/23 03/03/23 03/03/23 18:15 18:59 20:33 MCV MCH MCHC RDW Plt Count MPV Immature Gran % (Auto) Neut % (Auto) Lymph % (Auto) [place] % (Auto) Eos % (Auto) Baso % (Auto) Lymph # (Auto) [place] # (Auto) Eos # (Auto) Baso # (Auto) Abs Immat Gran (auto) Absolute Neuts (auto) Absolute Nucleated RBC Nucleated RBC % (auto) Anion Gap Estim Creat Clear Calc Estimated GFR POC Glucose 156 H 150 H Random Glucose Lactic Acid Calcium Magnesium Total Bilirubin AST ALT Alkaline Phosphatase B-Natriuretic Peptide Total Protein Albumin TSH Urine Color Yellow Urine Appearance Clear Urine pH 5.0 Ur Specific [place] 1.010 Urine Protein Negative Urine Glucose (UA) Negative Urine Ketones Negative Urine Blood Negative Urine Nitrite Positive H Ur Leukocyte Esterase Negative Urine RBC 0-2 Urine WBC 0-5 Ur Squamous Epith Cells 0-2 Urine Bacteria 4+ Hyaline Casts 3-5 Stool Occult Blood Blood Type Antibody Screen Crossmatch 03/04/23 03/04/23 03/04/23 07:14 07:28 07:28 MCV 85.5 MCH 26.7 L MCHC 31.3 RDW 20.8 H Plt Count 319 MPV 10.8 Immature Gran % (Auto) 0.2 Neut % (Auto) 69.5 Lymph % (Auto) 20.0 [place] % (Auto) 9.1 Eos % (Auto) 0.6 Baso % (Auto) 0.6 Lymph # (Auto) 1.0 L [place] # (Auto) 0.5 Eos # (Auto) 0.0 Baso # (Auto) 0.0 Abs Immat Gran (auto) 0.01 Absolute Neuts (auto) 3.5 Absolute Nucleated RBC 0.000 Nucleated RBC % (auto) 0.0 Anion Gap 13 Estim Creat Clear Calc 26.4 Estimated GFR 27 POC Glucose 101 Random Glucose 108 Lactic Acid Calcium 7.4 L Magnesium Total Bilirubin AST ALT Alkaline Phosphatase B-Natriuretic Peptide Total Protein Albumin TSH Urine Color Urine Appearance Urine pH Ur Specific [place] Urine Protein Urine Glucose (UA) Urine Ketones Urine Blood Urine Nitrite Ur Leukocyte Esterase Urine RBC Urine WBC Ur Squamous Epith Cells Urine Bacteria Hyaline Casts Stool Occult Blood Blood Type Antibody Screen Crossmatch Assessment and Plan (1) Anemia: Status: Acute (2) Hypotension: Status: Acute Plan 77 year old female with history pulmonary hypertension, heart failure with preserved ejection fraction, paroxysmal atrial fibrillation anticoagulated with Eliquis, CKD stage 4, insulin-dependent type 2 diabetes, spinal stenosis, and depression admitted for symptomatic anemia with GI bleed. #Acute on chronic symptomatic anemia- due to chronic blood loss -H/H 7.9/25.7.? Gradually decreasing since September, status post 1 unit of packed hematocrit improved to 29.4 -stool occult blood positive.? History of severe erosive esophagitis and gastritis on EGD -continue IV PPI, carafate ,regular diet hold Eliquis, possible EGD evening or Thursday morning per GI -follow CBC # hypotension -due to multiple antihypertensive medication will hold isosorbide and Norvasc, BP improved but remains soft, will hold Lasix BP remains low #Urinary retention, UA 4+ bacteria positive nitrate no pyuria, will follow urine culture, noted to have high bladder scan, Chan catheter placed last night, will add Flomax and outpatient follow-up with Urology. # paroxysmal atrial fibrillation-rate controlled -hold Eliquis due to above,continue amiodarone # heart failure with preserved ejection fraction -euvolemic on exam,continue Lasix # CKD stage 4 -renal function baseline # insulin-dependent type 2 diabetes - stable blood sugars continue diabetic diet and insulin sliding scale. #Depression -uncontrolled. No SI but fixated on the thought of , recently seen by Psychiatry and started on sertraline [address] Minor recommend outpatient therapy. DVT prophylaxis- SCPs DNI Obtained PT eval for safe disposition. Patient requires continue inpatient stay for management of acute on chronic symptomatic blood-loss anemia with hypotension requiring blood transfusion, cardiac monitoring, close monitoring of blood counts, and expert consultation. Time Spent With Patient Time: Total time managing care of this patient today ____ minutes. Quality Stroke Does the patient have a stroke diagnosis?: No VTE Prior VTE?: No VTE Risk Level:: Medical - moderate - high VTE Device Contraindication: N/A - Device Ordered VTE Drug Contraindication: Treatment Not Indicated
[2023-03-04 11:29] LABS: Glucose, Whole Blood 160 mg/dL (60-115)
[2023-03-04] MEDS: Sertraline HCL 25 MG TABLET PO (11:41)
[2023-03-04] MEDS: Insulin Lispro 100 UNIT/ML 3 ML VIAL SUBCUT ×3 (11:41→20:58)
--- NOTE | 2023-03-04 15:21 | PM.PSYCN ---
History of Present Illness Date of Service: 03/04/2023 Chief Complaint: symptomatic anemia Reason for Consult: depression, preoccupation with dying. Requesting physician: Aleida Ugalde Sources of Information: patient interviewed, chart reviewed and crisis/core team assessment reviewed Additional Sources of Information: Spoke with . HPI Narrative: Patient is a 77 year old female with history pulmonary hypertension, heart failure with preserved ejection fraction, paroxysmal atrial fibrillation anticoagulated with Eliquis, CKD stage 4, insulin-dependent type 2 diabetes, spinal stenosis, and depression admitted for symptomatic anemia with GI bleed. Consult to psychiatry was placed for depression and restart of medications. During assessment, patient presents as calm and cooperative; Patient was tearful during conversation. She reports feeling anxious about my breathing . Pt stated, I got home from rehab for one day and came back to the hospital. I don't want to keep coming here. I'm afraid of dying. I'm afraid I won't be with my again . During her last hospital admission, it was recommended for patient to be started on a trial of Zoloft 25mg PO daily; Patient does not recall the last time she took Zoloft, however she is open to restarting this medication. Patient stated, the medication won't change my circumstances . Patient reports she would like to have a therapist to speak to weekly. Past Psychiatric History: hosp: none SA: none SIB: h/o slamming her hand int he door prior to teenage years after parental criticism. none since. trauma: denies outpt care: denies Review of Systems Constitutional: Reports as per HPI Eyes: Reports as per HPI Reports as per HPI Cardiovascular: Reports as per HPI Respiratory: Reports as per HPI Gastrointestinal: Reports as per HPI Genitourinary: Reports as per HPI Musculoskeletal: Reports as per HPI Skin/Breast: Reports as per HPI Reports as per HPI Psychiatric: Reports as per HPI Endocrine: Reports as per HPI Hematologic/Lymphatic: Reports as per HPI Allergic/Immunologic: Reports as per HPI [facility] Medical History CKD (chronic kidney disease), stage IV Congestive heart failure Depressive disorder Diabetes Diastolic CHF HTN (hypertension) PAF (paroxysmal atrial fibrillation) Spinal stenosis Thyroid activity decreased Family History: son - alcohol use disorder Social History: . Trauma History: denies Diagnostics Vital Signs (24Hr): Vital Signs - 24 hr 03/03/23 16:13 03/03/23 17:11 03/03/23 18:00 Temperature 97.7 F 97.6 F 97.4 F Pulse Rate 68 75 56 Respiratory Rate 15 16 16 Blood Pressure 90/48 L 93/41 L 112/37 L Pulse Oximetry 96 98 94 Oxygen Delivery Method Room Air Room Air Room Air 03/03/23 18:33 03/03/23 18:43 03/03/23 19:06 Temperature 97.6 F 97.7 F 97.5 F Pulse Rate 61 58 62 Respiratory Rate 18 18 18 Blood Pressure 125/44 L 120/40 L 115/40 L Pulse Oximetry 95 Oxygen Delivery Method Room Air 03/03/23 20:00 03/03/23 22:01 03/03/23 23:46 Temperature 98.6 F 97.4 F 98.7 F Pulse Rate 67 57 52 Respiratory Rate 18 19 18 Blood Pressure 137/61 109/55 L 120/58 L Pulse Oximetry 96 98 Oxygen Delivery Method Room Air Room Air 03/04/23 04:51 03/04/23 07:25 03/04/23 11:11 Temperature 98.2 F 97.3 F 97 F Pulse Rate 54 67 58 Respiratory Rate 20 18 20 Blood Pressure 126/59 L 103/66 122/60 Pulse Oximetry 96 95 95 Oxygen Delivery Method Room Air Room Air Room Air 03/04/23 14:03 03/04/23 15:07 Temperature 98.1 F Pulse Rate 58 65 Respiratory Rate 16 Blood Pressure 122/60 116/57 L Pulse Oximetry 95 97 Oxygen Delivery Method Room Air BMI result Body Mass Index 30.8 Labs 03/04/23 07:28 03/04/23 07:28 Labs: Laboratory Results - last 48 hr 03/03/23 03/03/23 03/03/23 13:50 13:50 13:50 WBC 5.5 RBC 3.04 L Hgb 7.9 L Hct 25.7 L MCV 84.5 MCH 26.0 L MCHC 30.7 L RDW 20.1 H Plt Count 373 MPV 10.7 Immature Gran % (Auto) 0.2 Neut % (Auto) 75.5 H Lymph % (Auto) 15.3 L Adams % (Auto) 8.4 Eos % (Auto) 0.2 Baso % (Auto) 0.4 Lymph # (Auto) 0.8 L Adams # (Auto) 0.5 Eos # (Auto) 0.0 Baso # (Auto) 0.0 Abs Immat Gran (auto) 0.01 Absolute Neuts (auto) 4.2 Absolute Nucleated RBC 0.000 Nucleated RBC % (auto) 0.0 Sodium Potassium Chloride Carbon Dioxide Anion Gap BUN Creatinine Estim Creat Clear Calc Estimated GFR POC Glucose Random Glucose Lactic Acid 1.8 Calcium Magnesium Total Bilirubin AST ALT Alkaline Phosphatase Troponin I High Sens B-Natriuretic Peptide 125 H Total Protein Albumin TSH Urine Color Urine Appearance Urine pH Ur Specific [place] Urine Protein Urine Glucose (UA) Urine Ketones Urine Blood Urine Nitrite Ur Leukocyte Esterase Urine RBC Urine WBC Ur Squamous Epith Cells Urine Bacteria Hyaline Casts Stool Occult Blood Blood Type Antibody Screen Crossmatch 03/03/23 03/03/23 03/03/23 15:02 15:02 16:22 WBC RBC Hgb Hct MCV MCH MCHC RDW Plt Count MPV Immature Gran % (Auto) Neut % (Auto) Lymph % (Auto) Adams % (Auto) Eos % (Auto) Baso % (Auto) Lymph # (Auto) Adams # (Auto) Eos # (Auto) Baso # (Auto) Abs Immat Gran (auto) Absolute Neuts (auto) Absolute Nucleated RBC Nucleated RBC % (auto) Sodium 137 Potassium 4.4 Chloride 108 Carbon Dioxide 23 Anion Gap 10 L BUN 59 H Creatinine 2.20 H Estim Creat Clear Calc 21.9 Estimated GFR 22 POC Glucose Random Glucose 148 H Lactic Acid Calcium 7.2 L Magnesium 1.7 Total Bilirubin 0.2 AST 10 ALT 16 Alkaline Phosphatase 67 Troponin I High Sens 33.5 H B-Natriuretic Peptide Total Protein 3.9 L Albumin 2.0 L TSH 2.17 Urine Color Urine Appearance Urine pH Ur Specific [place] Urine Protein Urine Glucose (UA) Urine Ketones Urine Blood Urine Nitrite Ur Leukocyte Esterase Urine RBC Urine WBC Ur Squamous Epith Cells Urine Bacteria Hyaline Casts Stool Occult Blood Blood Type O Positive Antibody Screen NEGATIVE Crossmatch See Detail 03/03/23 03/03/23 03/03/23 16:22 18:15 18:59 WBC RBC Hgb Hct MCV MCH MCHC RDW Plt Count MPV Immature Gran % (Auto) Neut % (Auto) Lymph % (Auto) Adams % (Auto) Eos % (Auto) Baso % (Auto) Lymph # (Auto) Adams # (Auto) Eos # (Auto) Baso # (Auto) Abs Immat Gran (auto) Absolute Neuts (auto) Absolute Nucleated RBC Nucleated RBC % (auto) Sodium Potassium Chloride Carbon Dioxide Anion Gap BUN Creatinine Estim Creat Clear Calc Estimated GFR POC Glucose 156 H Random Glucose Lactic Acid Calcium Magnesium Total Bilirubin AST ALT Alkaline Phosphatase Troponin I High Sens B-Natriuretic Peptide Total Protein Albumin TSH Urine Color Yellow Urine Appearance Clear Urine pH 5.0 Ur Specific [place] 1.010 Urine Protein Negative Urine Glucose (UA) Negative Urine Ketones Negative Urine Blood Negative Urine Nitrite Positive H Ur Leukocyte Esterase Negative Urine RBC 0-2 Urine WBC 0-5 Ur Squamous Epith Cells 0-2 Urine Bacteria 4+ Hyaline Casts 3-5 Stool Occult Blood POSITIVE Blood Type Antibody Screen Crossmatch 03/03/23 03/04/23 03/04/23 20:33 07:14 07:28 WBC 5.0 RBC 3.44 L Hgb 9.2 L Hct 29.4 L MCV 85.5 MCH 26.7 L MCHC 31.3 RDW 20.8 H Plt Count 319 MPV 10.8 Immature Gran % (Auto) 0.2 Neut % (Auto) 69.5 Lymph % (Auto) 20.0 Adams % (Auto) 9.1 Eos % (Auto) 0.6 Baso % (Auto) 0.6 Lymph # (Auto) 1.0 L Adams # (Auto) 0.5 Eos # (Auto) 0.0 Baso # (Auto) 0.0 Abs Immat Gran (auto) 0.01 Absolute Neuts (auto) 3.5 Absolute Nucleated RBC 0.000 Nucleated RBC % (auto) 0.0 Sodium Potassium Chloride Carbon Dioxide Anion Gap BUN Creatinine Estim Creat Clear Calc Estimated GFR POC Glucose 150 H 101 Random Glucose Lactic Acid Calcium Magnesium Total Bilirubin AST ALT Alkaline Phosphatase Troponin I High Sens B-Natriuretic Peptide Total Protein Albumin TSH Urine Color Urine Appearance Urine pH Ur Specific [place] Urine Protein Urine Glucose (UA) Urine Ketones Urine Blood Urine Nitrite Ur Leukocyte Esterase Urine RBC Urine WBC Ur Squamous Epith Cells Urine Bacteria Hyaline Casts Stool Occult Blood Blood Type Antibody Screen Crossmatch 03/04/23 03/04/23 07:28 11:21 WBC RBC Hgb Hct MCV MCH MCHC RDW Plt Count MPV Immature Gran % (Auto) Neut % (Auto) Lymph % (Auto) Adams % (Auto) Eos % (Auto) Baso % (Auto) Lymph # (Auto) Adams # (Auto) Eos # (Auto) Baso # (Auto) Abs Immat Gran (auto) Absolute Neuts (auto) Absolute Nucleated RBC Nucleated RBC % (auto) Sodium 142 Potassium 4.4 Chloride 109 H Carbon Dioxide 24 Anion Gap 13 BUN 50 H Creatinine 1.83 H Estim Creat Clear Calc 26.4 Estimated GFR 27 POC Glucose 160 H Random Glucose 108 Lactic Acid Calcium 7.4 L Magnesium Total Bilirubin AST ALT Alkaline Phosphatase Troponin I High Sens B-Natriuretic Peptide Total Protein Albumin TSH Urine Color Urine Appearance Urine pH Ur Specific [place] Urine Protein Urine Glucose (UA) Urine Ketones Urine Blood Urine Nitrite Ur Leukocyte Esterase Urine RBC Urine WBC Ur Squamous Epith Cells Urine Bacteria Hyaline Casts Stool Occult Blood Blood Type Antibody Screen Crossmatch Imaging Radiology Impressions: ITS Impressions Chest X-Ray 03/03/23 14:10 IMPRESSION: No acute pulmonary pathology. Mental Status Exam Mental Status Exam Narrative: Pt is alert and oriented; behavior is cooperative, friendly and calm; dressed in casual attire; mood is described as anxious ; eye contact appropriate; Speech is normal rate, volume and prosody and not pressured; no psychomotor agitation/retardation present; thought process is organized and goal directed; Thought content is on tx; otherwise pertinent to relevant topics and without any delusional content, paranoid ideations or grandiosity; denies SI/HI. There is no evidence of perceptual disturbance. Patients insight and judgment are fair. Medications Medications Current Medications Acetaminophen (Acetaminophen 325 Mg Tablet) 650 mg PO Q6H PRN PRN Reason: Pain, Mild (Pain Scale 1-3) Amiodarone HCl (Amiodarone Hcl 200 Mg Tablet) 200 mg PO DAILY [facility] Last Admin: 03/04/23 08:52 Dose: 200 mg Buspirone HCl (Buspirone Hcl 5 Mg Tablet) 5 mg PO TID [facility] Last Admin: 03/04/23 08:52 Dose: 5 mg Calcium Carbonate (Calcium Carbonate 750 Mg Tab.Chew) 750 mg PO Q4H PRN PRN Reason: Indigestion Cyanocobalamin (Cyanocobalamin (Vitamin B-12) 1,000 Mcg Tablet) 1,000 mcg PO DAILY [facility] Last Admin: 03/04/23 08:52 Dose: 1,000 mcg Dextrose (Dextrose 50 % 25 Gm/50 Ml Syringe) 25 gm IVPUSH Q15M PRN; Protocol PRN Reason: per Hypoglycemia Standing Ord. Diphenhydramine HCl (Diphenhydramine Hcl 25 Mg Capsule) 25 mg PO DAILY PRN PRN Reason: Allergic Symptoms Docusate Sodium (Docusate Sodium 100 Mg Capsule) 100 mg PO DAILY PRN PRN Reason: Constipation Ferrous Sulfate (Ferrous Sulfate 324 Mg Tablet.Dr) 324 mg PO DAILY [facility] Last Admin: 03/04/23 08:52 Dose: 324 mg Furosemide (Furosemide 40 Mg Tablet) 40 mg PO DAILY [facility]; Protocol Last Admin: 03/04/23 08:52 Dose: 40 mg Glucose (Glucose Gel 15 Gm Gel..Gram.) 15 gm PO Q15M PRN; Protocol PRN Reason: per Hypoglycemia Standing Ord. Insulin Human Lispro (Insulin Lispro 100 Unit/Ml 3 Ml Vial) 0 unit SUBCUT QIDACHS [facility]; Protocol Last Admin: 03/04/23 11:41 Dose: 2 unit Levothyroxine Sodium (Levothyroxine Sodium 50 Mcg Tablet) 50 mcg PO DAILY@0600 [facility] Last Admin: 03/04/23 06:02 Dose: 50 mcg Ondansetron HCl (Ondansetron Hcl 4 Mg/2 Ml Vial) 4 mg IVPUSH Q8H PRN PRN Reason: Nausea and Vomiting Oxycodone HCl (Oxycodone Hcl Immed Release 5 Mg Tablet) 10 mg PO QID PRN PRN Reason: Pain, Severe (Pain Scale 7-10) Last Admin: 03/04/23 11:41 Dose: 10 mg Pantoprazole Sodium (Pantoprazole Sodium 40 Mg/10 Ml Vial) 40 mg IVPUSH BID@0630,1630 [facility] Last Admin: 03/04/23 06:02 Dose: 40 mg Potassium Chloride (Potassium Chloride Er 10 Meq Tablet.Er) 10 meq PO BID [facility] Last Admin: 03/04/23 08:52 Dose: 10 meq Sertraline HCl (Sertraline Hcl 25 Mg Tablet) 25 mg PO DAILY [facility] Last Admin: 03/04/23 11:41 Dose: 25 mg Sodium Chloride (0.9 % Sodium Chloride Flush 3 Ml Syringe) 3 ml IVFLUSH QSHIFT [facility] Last Admin: 03/04/23 08:53 Dose: 3 ml Sucralfate (Sucralfate 1 Gm Tablet) 1 gm PO QID [facility] Last Admin: 03/04/23 12:41 Dose: 1 gm Tamsulosin HCl (Tamsulosin Hcl 0.4 Mg Capsule) 0.4 mg PO BEDTIME YADY Trazodone HCl (Trazodone Hcl 25 Mg Halftab) 25 mg PO BEDTIME PRN PRN Reason: Anxiety Allergies Allergies Allergy/AdvReac Type Severity Reaction Status Date / Time levofloxacin [From LEVAQUIN] AdvReac Mild flushed Verified 03/03/23 12:34 Assessment & Plan Assessment & Plan (1) MDD (major depressive disorder), recurrent episode: Status: Acute Code(s): F33.9 - Major depressive disorder, recurrent, unspecified (2) GRACE (generalized anxiety disorder): Status: Acute Code(s): F41.1 - Generalized anxiety disorder Plan Patient is a 77 year old female with history pulmonary hypertension, heart failure with preserved ejection fraction, paroxysmal atrial fibrillation anticoagulated with Eliquis, CKD stage 4, insulin-dependent type 2 diabetes, spinal stenosis, and depression admitted for symptomatic anemia with GI bleed. Consult to psychiatry was placed for possible depression and restart of medications. Recommendation: Restart Zoloft 25mg PO daily. Provide education on Zoloft. Referral to outpatient psychotherapy. Total time managing care of this patient today _30___ minutes. Patient educated on: diagnosis, medication risk/benefits and therapeutic strategies Informed Consent: understands
[2023-03-04] MEDS: ondansetron HCL 4 MG/2 ML VIAL IVPUSH (15:54)
[2023-03-04 16:19] LABS: Glucose, Whole Blood 223 mg/dL (60-115)
[2023-03-04] MEDS: Docusate Sodium 100 MG CAPSULE PO (18:57)
--- NOTE | 2023-03-04 19:31 | PM.EVENT ---
Event Note Date of Service: 03/04/23 Event Note: GI Consult-Full note dictated. History via patient, her RN, and the EMR. Imp: Chronic anemia with slight worsening and Heme + stool in a 77 yo female with multiple medical problems including CRF, Afib on Eliquis, CHF, sleep apnea, pulmonary HTN, and DM, . There has been no active bleeding and she denies any particular GI sx other than constipation. She had an EGD/Colonoscopy in 2020 that were not particularly revealing. I suspect her anemia is multifactorial in relation to some slow chronic GI blood loss on Eliquis, renal insufficiency, and her other medical issues. Rec: I would hold off on endoscopic intervention given her increased anesthesia risk, unless she has obvious signs of significant GI blood loss. Given the findings in 2020, I suspect the yield on a repeat endoscopy would be low. Hold Eliquis, if no major contraindication, for a couple of weeks. Continue supportive care with oral PPI, Iron, trial of Procrit, and transfusion prn. D/W patient and she is comfortable with that plan. Thanks Time Spent With Patient Time: Total time managing care of this patient today ____ minutes.
[2023-03-04 19:58] LABS: Glucose, Whole Blood 195 mg/dL (60-115)
[2023-03-04] MEDS: Tamsulosin HCL 0.4 MG CAPSULE PO (20:56)
[2023-03-04] MEDS: polyethylene glycoL 3350 17 GM POWD.PACK PO (20:57)
[2023-03-05] MEDS: 0.9 % Sodium Chloride Flush 3 ML SYRINGE IVFLUSH ×2 (00:09→08:02)
--- NOTE | 2023-03-05 01:38 | CONS_ITS ---
DATE OF SERVICE: 03/04/2023 REASON FOR CONSULTATION: Anemia and heme-positive stool. HISTORY OF PRESENT ILLNESS: This has been obtained from the patient, her nurse, and the medical record. The patient is a 77-year-old female with multiple medical problems, admitted here yesterday with some hypotension, worsening anemia, and the finding of heme-positive stool. I last saw the patient when she was hospitalized here in September. At that time, she was having some issues with abdominal pain. She had a previous history of an upper endoscopy and colonoscopy in August 2020. Her colonoscopy was unremarkable other than a small inflammatory polyp. The upper endoscopy had revealed a hiatal hernia and some mild gastritis, but with biopsies negative for H pylori. There was no ulcer disease. When she was here in earlier this year, she was having issues with shortness of breath as well as her abdominal pain. She has had some issues with constipation. Since that hospitalization, she has had intermittent stays at a rehab facility. She describes that she was actually just discharged from rehab recently and was only home for a couple of days before having to go to the ER for evaluation of some hypotension. When she went to the ER, she was found to have some heme-positive stool as well as a somewhat lower hemoglobin from her baseline. She did receive 1 unit of blood. Since admission, she does report that she is feeling somewhat better. She describes her appetite is fair. She denies any dysphagia, nausea, nor vomiting. She has had some constipation, but there has been no report of any melena nor hematochezia. She presently denies any abdominal pain. She does use Eliquis daily. Her blood count on arrival was 7.9 compared to 7.8 on February 13. Her hemoglobin today was 9.2 after a transfusion. CURRENT MEDICATIONS: Include acetaminophen, amiodarone, BuSpar, calcium carbonate, vitamin B12, Benadryl p.r.n., Colace p.r.n., iron 325 mg daily, Lasix, insulin, levothyroxine, Zofran, oxycodone, pantoprazole 40 mg IV b.i.d., potassium, sertraline, sucralfate, Flomax, and trazodone. PAST MEDICAL HISTORY: Diabetes mellitus. Hypertension. Sleep apnea. Kidney stones. Renal insufficiency. Neuropathy. Gastroesophageal reflux. Gastritis. Hypothyroidism. Choledocholithiasis, status post ERCP in 2019. Negative MRCP in 2020. Pulmonary hypertension, CHF, atrial fibrillation, spinal stenosis, depression. SURGICAL HISTORY: Includes cholecystectomy, tubal ligation, and lower back surgery. FAMILY HISTORY: Negative for any history of colon cancer, inflammatory bowel disease, nor celiac disease. SOCIAL HISTORY: She is . She lives with her . She does not smoke nor use any significant amounts of alcohol. REVIEW OF SYSTEMS: CONSTITUTIONAL: She has been feeling weak and somewhat depressed. Appetite is fair. SKIN: No rash, no pruritus. CARDIAC: No chest pain. PULMONARY: No coughing or hemoptysis. GI: As above. NEUROLOGIC: No headache or seizures. PHYSICAL EXAMINATION: GENERAL: The patient is a pleasant, alert, comfortable-appearing female. She is pale. SKIN: Warm and dry. HEENT: Anicteric sclerae. Moist mucous membranes. NECK: Supple. There is no palpable lymphadenopathy. CHEST: Reveals bilateral rhonchi. CARDIAC: Normal S1, S2. ABDOMEN: Soft. Normal bowel sounds. Nondistended and nontender. There is no palpable mass. EXTREMITIES: Reveal some pitting pretibial edema. NEUROLOGICAL: She seems to be alert and oriented and answers questions appropriately. LABORATORY DATA: As above. White blood cell count 5.0, hemoglobin 9.2, MCV 85, platelets 319,000. Sodium 142, potassium 4.4, chloride 109, CO2 of 24, BUN 50, creatinine 1.8. Calcium 7.4. Stool was heme positive. Chest x-ray describes no acute pulmonary pathology. IMPRESSION: The patient is a 77-year-old female with multiple medical problems who appears to have a chronic anemia. This worsened slightly and that may have been a cause of her hypotension at the time of admission. However, she has not had any signs of active GI bleeding nor does she have any specific GI complaints at the present time. She had an upper endoscopy and colonoscopy in 2020, both of which were not particularly revealing. Given her clinical history with renal failure, multiple other medical problems, chronic use of Eliquis, and heme-positive stool, I suspect her anemia is multifactorial, both in relation to some chronic slow blood loss and other issues including that of her renal failure. At this point, given no signs of active bleeding and her overall condition, I would hold off on upper endoscopy given the somewhat increased risk in regard to her anesthesia from a cardiopulmonary standpoint. At this point, I would continue basically supportive care with some probable holding of her Eliquis for a relatively short time, continuing of her PPI, continuing iron, adding a trial of Procrit in regard to the renal failure, and transfuse p.r.n. I would reserve endoscopy for active bleeding. Again, given her overall condition and an increased risk of anesthesia from a cardiopulmonary standpoint, I would hold off on endoscopy for the time being since I think the yield at this point is relatively low. I would also not recommend a colonoscopy. I would also adjust her bowel regimen to include a daily stool softener such as MiraLax rather than p.r.n. I did review this with the patient and she is comfortable with that plan. Thank you for the consultation. MD BRYAN Worthington/VANESSA / [phone] MTDD
[2023-03-05 03:38] VITALS: BP 133/60; PULSE 59; RESP 15; TEMP 36.4; O2SAT 94
[2023-03-05] MEDS: oxyCODONE HCl Immed Release 5 MG TABLET 10 MG PO ×2 (04:10→11:14)
[2023-03-05] MEDS: Levothyroxine Sodium 50 MCG TABLET PO (06:49)
[2023-03-05] MEDS: Omeprazole 20 MG CAPSULE.DR PO (06:49)
[2023-03-05 07:19] VITALS: BP 122/60; PULSE 58; RESP 18; TEMP 36.3; O2SAT 97
[2023-03-05 07:21] LABS: Glucose, Whole Blood 109 mg/dL (60-115)
[2023-03-05 07:27] LABS: Hematocrit 29.2 % (37.0-47.0); Hemoglobin 9.2 g/dl (12.0-16.0); Mean Corpuscular HGB Conc 31.5 g/dl (31.0-35.0); Mean Corpuscular Hemoglobin 27.2 pg (27.0-33.0); Mean Corpuscular Volume 86.4 fL (80.0-98.0); Mean Platelet Volume 10.7 fL (9.4-12.3); Platelet Count 324 X10*3/uL (160-400); Red Blood Count 3.38 X10*6/uL (4.20-5.50); Red Cell Distribution Width 21.7 % (11.0-16.0); White Blood Count 4.6 X10*3/uL (4.8-10.8)
[2023-03-05 07:29] LABS: Anion Gap 9 (12-20); Blood Urea Nitrogen 43 mg/dL (9-16); Calcium 7.6 mg/dL (8.4-10.2); Carbon Dioxide 27 mmol/L (22-29); Chloride 108 mmol/L (96-108); Creatinine Clr Calc Pharmacy 28.7; Estimated Glomerular Filt Rate 30; Glucose Random 106 mg/dL (60-115); Potassium 4.7 mmol/L (3.3-5.1); Sodium 139 mmol/L (135-145)
[2023-03-05] MEDS: polyethylene glycoL 3350 17 GM POWD.PACK PO (08:02)
[2023-03-05] MEDS: Ferrous Sulfate 324 MG TABLET.DR PO (08:02)
[2023-03-05] MEDS: busPIRone HCl 5 MG TABLET PO ×2 (08:02→14:29)
[2023-03-05] MEDS: Cyanocobalamin (Vitamin B-12) 1,000 MCG TABLET 1000 MCG PO (08:02)
[2023-03-05] MEDS: Sertraline HCL 25 MG TABLET PO (08:02)
[2023-03-05] MEDS: Sucralfate 1 GM TABLET PO ×2 (08:02→11:50)
[2023-03-05] MEDS: Amiodarone HCL 200 MG TABLET PO (08:02)
[2023-03-05] MEDS: Potassium Chloride ER 10 MEQ TABLET.ER PO (08:02)
[2023-03-05] MEDS: Docusate Sodium 100 MG CAPSULE PO (08:02)
[2023-03-05 11:12] VITALS: BP 135/63; PULSE 84; RESP 17; TEMP 36.1; O2SAT 95
[2023-03-05 11:32] LABS: Glucose, Whole Blood 214 mg/dL (60-115)
[2023-03-05] MEDS: Insulin Lispro 100 UNIT/ML 3 ML VIAL SUBCUT (11:49)
--- NOTE | 2023-03-05 12:20 | MHC.CM.PN ---
Pt is medically cleared for D/C home today with resumption of [facility]. Pts will transport her home.
--- NOTE | 2023-03-05 13:14 | PM.DS ---
DS: Providers Provider Date of Service: 03/05/23 Date of admission: 03/03/23 17:37 Primary care physician: [place] Raymundo MD Consults: 03/03/23 18:15 Consult to Gastroenterology Routine Consulting Provider: Kolby Davison Reason for consultation: acute on chronic blood loss anemia 03/03/23 18:21 Consult to Psychiatry Routine Consulting Provider: Psych Covering Reason for consultation: depression, preoccupation with dying DS: Diagnosis Discharge Diagnosis (1) MDD (major depressive disorder), recurrent episode: Status: Acute (2) GRACE (generalized anxiety disorder): Status: Acute DS: Summary Hospital Course Hospital Course: Date of Service: 03/03/23 Attending physician on admission: Roger Jim Chief Complaint: hypotension, nunez, lightheadedness 77 year old female with history pulmonary hypertension, heart failure with preserved ejection fraction, paroxysmal atrial fibrillation anticoagulated with Eliquis, CKD stage 4, insulin-dependent type 2 diabetes, spinal stenosis, and depression presented to the ED earlier today from her cardiology office due to an episode of hypotension with blood pressure 72/42. The patient tells me that for the last few weeks, she has been symptomatic with dyspnea on exertion, chest pain on exertion, and positional lightheadedness. Reports symptoms resolved with rest. Denies any syncopal events. She is also reporting abdominal pain and inability to initiate micturition. She states that this happens occasionally at home as well. Denies any dysuria, hematuria, increased frequency or urgency. On arrival, vital stable but blood pressure is soft with systolic pressure ranging 90-105. There is no leukocytosis. H/H 7.9/25.7%, MCV 84.5. On review of chart, it appears there has been a gradual decrease in H/H since September. At that time, hemoglobin 11.1/hematocrit 34.3%. She does endorse nausea and dry heaves on a near daily basis. She is somewhat of a vague historian announced about melena or hematochezia. Does tell me she had a single episode of bright red blood per rectum but tells my colleague, has had maroon-colored stool. She did have EGD in 08/2020 which shows severe erosive esophagitis and gastritis and colonoscopy at that time as unremarkable except for inflammatory polyp. Renal function baseline. Electrolyte levels normal. Albumin 2.0. Troponin 33.5. BNP 125. EKG shows atrial fibrillation, rate 71 with left bundle branch block (present on prior EKGs) and no acute ST or depressions. Chest x-ray negative for any acute pulmonary abnormality. In the ed given 1 L IVF and will be transfused 1 unit PRBC. Pt. also noted to be anxious stating that she is going to and tearful. Reassurance offered. Denies SI/HI. Hospital Course: 77 year old female with history pulmonary hypertension, heart failure with preserved ejection fraction, paroxysmal atrial fibrillation anticoagulated with Eliquis, CKD stage 4, insulin-dependent type 2 diabetes, spinal stenosis, and depression admitted for symptomatic anemia with GI bleed and hypotension patient admitted to medical floor with a diagnosis of Acute on chronic symptomatic anemia- H/H 7.9/25.7 on admission patient treated with 1 unit of packed RBC hematocrit improved to 29.4,stool occult blood positive, likely multifactorial anemia due to chronic blood loss on Eliquis, due to renal insufficiency and other medical issues, status post EGD/colonoscopy in 2020,history of erosive esophagitis and gastritis , patient evaluated by Dr. Da Silva from Gastroenterology since no active bleed was noted he recommended to continue oral PPI, iron and Procrit , since patient hematocrit remained stable and she is tolerating diet with no active bleeding therefore she is being discharged home, in regard to hypotension it was likely due to multiple antihypertensive medications, Norvasc and isosorbide have been discontinued patient blood pressure improved and remains stable. Patient noted to have urinary retention required Chan catheter, UA 4+ bacteria, positive nitrate, no pyuria, urine culture grew Klebsiella pneumonia will treat with Ceftin 250 mg b.i.d. Chan catheter discontinued patient voided Post Chan removal. In regard to paroxysmal atrial fibrillation-recommend to continue amiodarone, Eliquis will be on hold for 2 weeks , patient has chronic kidney disease stage 4 kidney function at baseline, in regard to insulin-dependent diabetes mellitus she is recommended to continue diabetic diet and insulin sliding scale, she was seen in consultation by psychiatrist for underlying anxiety and depression and has been started on Zoloft 25 mg daily and recommended outpatient therapy. Time Spent with Patient Time attestation: Total time managing care of this patient today ____ minutes. Discharge coordination time: Greater than 30 minutes Quality: Safe Use of Opioids Does Pt have an Active Cancer Diagnosis on the Problem List?: No Quality: Stroke Does the patient have a stroke diagnosis?: No Physical Exam Vital Signs: Vital Signs: Last Vital Signs Temp 97 F 03/05/23 11:12 Pulse 84 03/05/23 11:12 Resp 17 03/05/23 11:12 BP 135/63 03/05/23 11:12 Pulse Ox 95 03/05/23 11:12 O2 Del Method Room Air 03/05/23 11:12 BMI result Body Mass Index 30.8 Const: Other: General awake alert x3 , resting comfortably in no acute distress. Neck supple no JVD. CVS regular rate rhythm, Respiratory lungs clear to auscultation, no respiratory distress, no wheeze, no rhonchi. Gastrointestinal abdomen soft, non tender, bowel sounds audible, no guarding , no rigidity. Extremities no edema. Neuro nonfocal , speech clear. Skin no rash Psych depressed/anxious mood DS: Data Data Completed and Pending Completed studies during hospitalization [Text1]: Procedures Assistance with Respiratory Ventilation, Less than 24 Consecutive Hours, Continuous Positive Airway Pressure (10/17/22) Labs on day of discharge: Laboratory Results - last 24 hr 03/04/23 03/04/23 03/05/23 16:15 19:53 07:00 WBC 4.6 L RBC 3.38 L Hgb 9.2 L Hct 29.2 L MCV 86.4 MCH 27.2 MCHC 31.5 RDW 21.7 H Plt Count 324 MPV 10.7 Absolute Nucleated RBC 0.000 Nucleated RBC % (auto) 0.0 Sodium 139 Potassium 4.7 Chloride 108 Carbon Dioxide 27 Anion Gap 9 L BUN 43 H Creatinine 1.68 H Estim Creat Clear Calc 28.7 Estimated GFR 30 POC Glucose 223 H 195 H Random Glucose 106 Calcium 7.6 L 03/05/23 03/05/23 07:18 11:28 WBC RBC Hgb Hct MCV MCH MCHC RDW Plt Count MPV Absolute Nucleated RBC Nucleated RBC % (auto) Sodium Potassium Chloride Carbon Dioxide Anion Gap BUN Creatinine Estim Creat Clear Calc Estimated GFR POC Glucose 109 214 H Random Glucose Calcium Preliminary micro results at discharge 03/03/23 13:50 Blood Culture - Preliminary Blood - Venous No growth after 24 hours. 03/03/23 13:50 Blood Culture - Preliminary Blood - Venous No growth after 24 hours. Discharge Plan Discharge Anticipated Discharge Date/Time: 03/05/23 13:05 Patient Disposition: Home Health Service Discharge Diagnosis: Acute on chronic symptomatic anemia Hypotension UTI Paroxysmal atrial fibrillation Referrals: Keena YEE [Outside] - 1 Week [place] Raymundo MD [Primary Care Provider] - 1 Week Discharge Medications: New sertraline 25 mg Tablet 25 mg PO DAILY Qty: 30 0RF cefuroxime axetil 250 mg Tablet 250 mg PO Q12H Qty: 10 0RF Continued amiodarone 200 mg tablet 200 mg PO DAILY 30 Days Qty: 90 1RF diphenhydramine HCl [Benadryl] 25 mg Capsule 25 mg DAILY PRN (Reason: Allergic Symptoms) insulin lispro [Humalog U-100 Insulin] 100 unit/mL Solution See Protocol subcut QIDACHS Qty: 10 0RF Protocol: Insulin Correction Scale Less than or equal to 110 ---- Give (units): 0 111 to 150 Give (units): 0 151 to 200 Give (units): 2 201 to 250 Give (units): 4 251 to 300 Give (units): 6 301 to 350 Give (units): 8 Greater than 350 Give (units): 10 Call MD if Blood Glucose > : 350 sucralfate 1 gram tablet 1 g PO QID acetaminophen [Tylenol] 325 mg Tablet 650 mg PO Q6H PRN (Reason: Pain) potassium chloride 10 mEq tablet extended release 10 meq PO BID furosemide [Lasix] 40 mg tablet 40 mg PO DAILY oxycodone 10 mg tablet 10 mg PO QID PRN (Reason: pain) Qty: 30 0RF Rx Instructions: Partial Fill upon patient request. cyanocobalamin (vitamin B-12) 1,000 mcg Tablet 1,000 mcg PO DAILY omeprazole 20 mg Capsule,Delayed Release(Dr/Ec) 20 mg PO BID calcium carbonate 500 mg calcium (1,250 mg) Tablet,Chewable 1,000 mg PO Q4H PRN (Reason: Indigestion) levothyroxine 50 mcg tablet 50 mcg PO DAILY@0600 ferrous sulfate [Iron (ferrous sulfate)] 325 mg (65 mg iron) tablet 325 mg PO DAILY ondansetron HCl 4 mg tablet 4 mg PO Q8H trazodone 50 mg tablet 25 mg PO Q12H PRN (Reason: Anxiety) buspirone 5 mg tablet 5 mg PO TID docusate sodium [Colace] 100 mg capsule 100 mg PO DAILY PRN (Reason: Constipation) Held Eliquis 5 mg Tablet 5 mg PO BID 30 Days Qty: 60 0RF Hold Instructions: Resume on 03/18/23. Discontinued isosorbide mononitrate 60 mg tablet extended release 24 hr 60 mg PO DAILY 30 Days Qty: 90 1RF Protocol: Hold for SBP< HOLD for SBP < : 90 amlodipine 5 mg Tablet 5 mg PO DAILY 30 Days Qty: 30 0RF Protocol: Hold for SBP< HOLD for SBP < : 90 Discharge Orders: Discharge Order (Routine); Ordered 03/05/23 Ordered By: Roger Jim Diet: Diabetic diet Activity on Discharge: As tolerated Stand Alone Forms: Patient Portal Discharge page Care Plan Goals: Hypotension resolved discontinue amlodipine and isosorbide Anemia improved hold Eliquis for 2 weeks Continue Prilosec and Carafate UTI take Ceftin 1 tablet twice daily started on Zoloft 25 mg daily for anxiety and depression Health Concerns: Continue all home medications as above Plan of Treatment: Outpatient follow-up with primary care physician call for appointment, outpatient follow-up with corporate account executive Dr. Barber Assessment: as above Patient Instructions: Cefuroxime (By mouth), Sertraline (By mouth) Discharge Date/Time: 03/05/23 15:55
--- NOTE | 2023-03-05 14:46 | PC.NURSE ---
Chan removed at 1120 per MD request. Voiding trial initated. Patient incontinent of urine at 1245, bladder scanned for 000ml. Dr. Jim made aware. No new orders.
== END 2023-03-05 15:55 | disposition home health service (06) | DRG 812 ==
LOC: HO.ED 17:14 → HO.EDOVER 17:46 → HO.IMC 18:13
PROVIDERS: Physician Assistant; Admitting Provider Physician Assistant; Emergency Provider Emergency Medicine; PCP Internal Medicine; Visit Provider Hospitalist
DX: D62 Acute posthemorrhagic anemia (principal); N18.4 Chronic kidney disease, stage 4 (severe); I50.32 Chronic diastolic (congestive) heart failure; F33.9 Major depressive disorder, recurrent, unspecified; N39.0 Urinary tract infection, site not specified; D63.1 Anemia in chronic kidney disease; T45.515A Adverse effect of anticoagulants, initial encounter; I27.20 Pulmonary hypertension, unspecified; F41.1 Generalized anxiety disorder; R33.9 Retention of urine, unspecified; E86.1 Hypovolemia; I95.2 Hypotension due to drugs; T46.5X5A Adverse effect of other antihypertensive drugs, initial encounter; I48.0 Paroxysmal atrial fibrillation; B96.1 Klebsiella pneumoniae [K. pneumoniae] as the cause of diseases classified elsewhere; Z79.4 Long term (current) use of insulin; Z79.01 Long term (current) use of anticoagulants; Z79.890 Hormone replacement therapy; Z79.899 Other long term (current) drug therapy
CPT/HCPCS: 36415; 71045; 80048; 80053; 81001; 82272; 82947; 83605; 83735; 83880; 84443; 84484; 85025; 85027; 86850; 86900; 86901; 86923; 87040; 87086; 87088; 87186; 93005; 97162; 99285; C1758; J2405; P9016

== ENCOUNTER → 2023-03-03 17:37 | Outpatient (BNV) | payer MEDICARE, SELFPAY | PROVIDERS: Admitting Provider Physician Assistant; Emergency Provider Emergency Medicine; PCP Internal Medicine; Visit Provider Registered Nurse | DX: F33.0 Major depressive disorder, recurrent, mild (principal); F41.1 Generalized anxiety disorder | CPT/HCPCS: 99222 ==

== ENCOUNTER → 2023-03-03 17:37 | Outpatient (BNV) | payer MEDICARE, SELFPAY | PROVIDERS: Admitting Provider Physician Assistant; Emergency Provider Emergency Medicine; PCP Internal Medicine; Visit Provider Physician Assistant | DX: F33.9 Major depressive disorder, recurrent, unspecified (principal); F41.1 Generalized anxiety disorder | CPT/HCPCS: 99223; 99233; 99239 ==

== ENCOUNTER 2023-05-27 12:52 | Outpatient (REF) | payer MEDICARE, SELFPAY ==
[2023-05-27 16:36] LABS: Estimated Average Glucose 126 mg/dL
[2023-05-27 16:40] LABS: Albumin Level 2.9 g/dL (3.5-5.0); Anion Gap 12 (12-20); Blood Urea Nitrogen 40 mg/dL (9-16); Carbon Dioxide 30 mmol/L (22-29); Chloride 102 mmol/L (96-108); Estimated Glomerular Filt Rate 33; Potassium 4.6 mmol/L (3.3-5.1); Sodium 139 mmol/L (135-145)
[2023-05-31 22:19] LABS: NT-proBNP 1975 pg/mL (<450)
== END 2023-05-27 12:53 | disposition home or self-care (01) ==
LOC: HO.HMGCLDS 12:52
PROVIDERS: PCP Internal Medicine; Visit Provider Internal Medicine
DX: I13.0 Hypertensive heart and chronic kidney disease with heart failure and stage 1 through stage 4 chronic kidney disease, or unspecified chronic kidney disease (principal); E11.22 Type 2 diabetes mellitus with diabetic chronic kidney disease; N18.4 Chronic kidney disease, stage 4 (severe); I50.32 Chronic diastolic (congestive) heart failure
CPT/HCPCS: 36415; 80051; 82040; 82565; 83036; 83880; 84134; 84520

== ENCOUNTER 2023-05-28 02:50 | Outpatient (REF) | payer MEDICARE, SELFPAY ==
[2023-05-29 13:51] LABS: Appearance Urine Clear; Color Urine Yellow; Glucose Urine UA Negative (Negative); Leukocyte Esterase Urine Trace (Negative); Nitrite Urine Negative (Negative); UMIC TRIGGER UACC YES; Urine Blood Negative (Negative); Urine Ketones Negative (Negative); Urine Protein Negative (Neg-Trace)
[2023-05-29 14:13] LABS: Bacteria Urine 1+ (None Seen); Hyaline Casts Urine 0-2 /LPF (0-2); RBC Urine 0-2 /HPF (0-2); Squamous Epithelial Cell Urine 0-2 /HPF (0-2); WBC Urine 0-5 /HPF (0-5)
== END 2023-05-28 02:51 | disposition home or self-care (01) ==
LOC: HO.HMGCLNP 02:50
PROVIDERS: PCP Physician Assistant; Visit Provider Physician Assistant
DX: Z13.89 Encounter for screening for other disorder (principal)
CPT/HCPCS: 81001; 87086; 87088; 87186

== ENCOUNTER 2023-08-25 09:39 | Emergency (ER) | payer MEDICARE, SELFPAY ==
--- NOTE | ~2023-08-25 | XR_ITS ---
STUDY: Left shoulder, left elbow, left wrist INDICATION: Left shoulder, left elbow and left wrist pain TECHNIQUE: 3 view left shoulder, 3 view left elbow, 3 view left wrist FINDINGS: Left shoulder: Diffuse demineralization. Acromioclavicular and glenohumeral degenerative type changes. No fracture or dislocation. Visualized left lung and ribs are unremarkable. Left elbow: No fracture or dislocation. Alignment and articulations are maintained. Likely continuous glucose monitoring device left upper arm. Left wrist: Diffuse demineralization. Prominence about the ulnar aspect of the left wrist soft tissues. Tiny bony density adjacent to the greater multangular on one of 3 views without definite fracture. Well-corticated bony density adjacent to the ulna styloid seen previously. Vascular calcifications. XR/XR hand wrist LT IMPRESSION: Diffuse demineralization. Degenerative type changes left shoulder. No acute bony pathology left shoulder, left elbow and left wrist.
--- NOTE | ~2023-08-25 | XR_ITS ---
STUDY: Left shoulder, left elbow, left wrist INDICATION: Left shoulder, left elbow and left wrist pain TECHNIQUE: 3 view left shoulder, 3 view left elbow, 3 view left wrist FINDINGS: Left shoulder: Diffuse demineralization. Acromioclavicular and glenohumeral degenerative type changes. No fracture or dislocation. Visualized left lung and ribs are unremarkable. Left elbow: No fracture or dislocation. Alignment and articulations are maintained. Likely continuous glucose monitoring device left upper arm. Left wrist: Diffuse demineralization. Prominence about the ulnar aspect of the left wrist soft tissues. Tiny bony density adjacent to the greater multangular on one of 3 views without definite fracture. Well-corticated bony density adjacent to the ulna styloid seen previously. Vascular calcifications. XR/XR shoulder LT min 2V IMPRESSION: Diffuse demineralization. Degenerative type changes left shoulder. No acute bony pathology left shoulder, left elbow and left wrist.
--- NOTE | ~2023-08-25 | US_ITS ---
EXAMINATION: US TRIPLEX UPPER EXTREMITY, LEFT CLINICAL INFORMATION: Left arm pain Patient on Eliquis COMPARISON: None available. TECHNIQUE: Color-flow triplex imaging with spectral analysis and compression Doppler was performed on the left upper extremity. FINDINGS: The left internal jugular, subclavian, and axillary veins are patent and free of thrombus. Spectral doppler waveforms are normal. The brachial, basilic, cephalic, radial, and ulnar veins are patent and compressible. US/US venous duplex LE LT IMPRESSION: No evidence of deep venous thrombosis involving the left upper extremity.
--- NOTE | ~2023-08-25 | XR_ITS ---
STUDY: Left shoulder, left elbow, left wrist INDICATION: Left shoulder, left elbow and left wrist pain TECHNIQUE: 3 view left shoulder, 3 view left elbow, 3 view left wrist FINDINGS: Left shoulder: Diffuse demineralization. Acromioclavicular and glenohumeral degenerative type changes. No fracture or dislocation. Visualized left lung and ribs are unremarkable. Left elbow: No fracture or dislocation. Alignment and articulations are maintained. Likely continuous glucose monitoring device left upper arm. Left wrist: Diffuse demineralization. Prominence about the ulnar aspect of the left wrist soft tissues. Tiny bony density adjacent to the greater multangular on one of 3 views without definite fracture. Well-corticated bony density adjacent to the ulna styloid seen previously. Vascular calcifications. XR/XR elbow LT min 3V IMPRESSION: Diffuse demineralization. Degenerative type changes left shoulder. No acute bony pathology left shoulder, left elbow and left wrist.
[2023-08-25 09:47] VITALS: BP 119/77; PULSE 77; O2SAT 94
[2023-08-25 09:49] VITALS: BP 132/45; PULSE 69; RESP 17; TEMP 36.6; O2SAT 98; BMI 33.6
--- NOTE | 2023-08-25 09:50 | ECG_ITS ---
Test Reason : arm pain Blood Pressure : / mmHG Vent. Rate : 061 BPM Atrial Rate : 061 BPM P-R Int : 212 ms QRS Dur : 138 ms QT Int : 462 ms P-R-T Axes : 030 -02 112 degrees QTc Int : 465 ms Sinus rhythm with 1st degree A-V block Left bundle branch block Abnormal ECG When compared with ECG of 03-MAR-2023 14:34, Previous ECG has undetermined rhythm, needs review Referred By: Uyen Wilson Electronically Signed By:SOPHIE BERNARD
--- NOTE | 2023-08-25 09:56 | ED.GENADULT ---
HPI - General Adult General Chief complaint: General Medical Stated complaint: ARM PAIN X1 MONTH PER EMS Time Seen by Provider: 08/25/23 09:49 Source: patient and EMS Mode of arrival: EMS Limitations: no limitations History of Present Illness HPI narrative: This is a 78-year-old female history of heart failure, CKD, paroxysmal atrial fibrillation on Eliquis, presenting to the emergency department complaints of atraumatic left-sided upper extremity pain for the past month worsening over the past few days. Patient reports she was seen by her PCP who did not really do much about the pain. Patient tells me her left arm pains making her activities of daily living it difficult to complete. Patient reports severe 10/10 pain worse with movement better at rest. Reports pain to her left shoulder, elbow hand and wrist. Denies recent falls. Patient is on Eliquis. No history of DVT to upper extremities. Denies fevers, chills, chest pain, shortness of breath, nausea, vomiting, abdominal pain, headache, vision changes, dizziness and weakness peer Related Data Home Medications Medication Instructions Recorded Confirmed levothyroxine 50 mcg tablet 50 mcg PO DAILY@0600 10/11/22 03/03/23 diphenhydramine HCl 25 mg capsule 25 mg DAILY PRN Allergic Symptoms 10/17/22 03/03/23 (Benadryl) docusate sodium 100 mg capsule 100 mg PO DAILY PRN Constipation 11/27/22 03/03/23 (Colace) acetaminophen 325 mg tablet 650 mg PO Q6H PRN Pain 12/16/22 03/03/23 (Tylenol) sucralfate 1 gram tablet 1 g PO QID 12/16/22 03/03/23 furosemide 40 mg tablet (Lasix) 40 mg PO DAILY 02/13/23 03/03/23 potassium chloride 10 mEq 10 meq PO BID 02/13/23 03/03/23 tablet,extended release buspirone 5 mg tablet 5 mg PO TID 03/03/23 03/03/23 calcium carbonate 500 mg calcium 1,000 mg PO Q4H PRN Indigestion 03/03/23 03/03/23 (1,250 mg) chewable tablet cyanocobalamin (vitamin B-12) 1,000 mcg PO DAILY 03/03/23 03/03/23 1,000 mcg tablet ferrous sulfate 325 mg (65 mg 325 mg PO DAILY 03/03/23 03/03/23 iron) tablet (Iron (ferrous sulfate)) omeprazole 20 mg capsule,delayed 20 mg PO BID 03/03/23 03/03/23 release ondansetron HCl 4 mg tablet 4 mg PO Q8H 03/03/23 03/03/23 trazodone 50 mg tablet 25 mg PO Q12H PRN Anxiety 03/03/23 03/03/23 Previous Rx's Medication Instructions Recorded apixaban 5 mg tablet (Eliquis) 5 mg PO BID 30 days #60 tabs 11/07/22 insulin lispro 100 unit/mL See Protocol subcut QIDACHS #10 mL 11/07/22 subcutaneous solution (Humalog U-100 Insulin) oxycodone 10 mg tablet 10 mg PO QID PRN pain #30 tabs 02/13/23 sertraline 25 mg tablet 25 mg PO DAILY #30 tabs 03/05/23 amiodarone 200 mg tablet 200 mg PO DAILY #90 tabs 03/23/23 cefuroxime axetil 250 mg tablet 250 mg PO Q12H #10 tabs 06/01/23 Allergies Allergy/AdvReac Type Severity Reaction Status Date / Time levofloxacin [From LEVAQUIN] AdvReac Mild flushed Verified 03/03/23 12:34 Review of Systems Review of Systems: Yes all other systems are reviewed and are negative PMFSH Past Medical History Attestation statement: The following information was validated with the patient. Source: old records reviewed and nursing notes reviewed Medical History GRACE (generalized anxiety disorder) MDD (major depressive disorder), recurrent episode GI bleed Anemia Congestive heart failure Depressive disorder PAF (paroxysmal atrial fibrillation) Spinal stenosis CKD (chronic kidney disease), stage IV Diastolic CHF Thyroid activity decreased HTN (hypertension) Diabetes Family History Family History Other Diabetes Social History Social History Household Members: Spouse Housing: House Do you presently have visiting nurse or other home services: Yes Alcohol intake: never Patient Tobacco Use Status: Never used Tobacco Smoked in Last 30 Days: No Second Hand Smoke Exposure: No Any prior treatment program specific to substance use: No Advance Directives: Yes Advance Directives on File: Yes Advance Directives Date on File: 12/16/22 service: No Current occupational status: retired Physical Exam ED Vital Signs: Vital Signs - 24 hr 08/25/23 09:49 08/25/23 11:19 08/25/23 11:42 Temperature 98 F Pulse Rate 69 60 62 Respiratory Rate 17 19 13 Blood Pressure 132/45 L 135/82 139/44 L Pulse Oximetry 98 98 94 Oxygen Delivery Method Room Air Room Air BMI result Body Mass Index 33.6 Vital signs stable Appearance: Alert.? Oriented X3.? No acute distress.? Head: Normocephalic, atraumatic, no step-offs or deformities Eyes: Pupils equal, round and reactive to light.? ENT: Pharynx normal.? Neck: Normal inspection.? Neck supple.? CVS: Normal heart rate and rhythm.? Pulses normal.? Respiratory: No respiratory distress.? Breath sounds normal.? Abdomen: Soft and nontender.? Skin: Skin warm and dry.? Normal skin color.? Normal skin turgor.? Extremities: No lower extremity edema.? No calf ttp. Global weakness 2+ radial pulses and brachial pulses equal bilateral. Left upper extremity is noted to have 2+ nonpitting edema from the shoulder down, 1+ pitting edema from the right shoulder down. Normal sensation distally. Discomfort with palpation of entire left arm. No overlying skin changes. Capillary refill less than 2 seconds to bilateral upper extremities. Painful range of motion to left shoulder, elbow, hand and wrist. Normal range of motion to right upper extremity. Neuro: Oriented X 3.? No motor deficit.? No sensory deficit. CN 2-12 intact Course Reevaluation(s) Reevaluation #1: CBC appears to be around patient's baseline she has a macrocytic anemia. Chemistry with a baseline KEILA, no significant change. Troponin negative, EKG nonischemic. There does seem to be a new first-degree AV block. Made patient aware of this will give Cardiology follow-up. X-ray of left shoulder diffuse demineralization. Degenerative changes to left shoulder. No acute bony pathology to left shoulder, left elbow and left wrist. No fractures or dislocation. DVT study of left upper extremity no evidence of DVT. Time: 12:43 Reevaluation #2: Will place patient to physician observation to allow more time to be evaluated by physical therapy and case management. At time observation started common cooperative no acute distress will continue to monitor. Time: 12:43 Medications Administered Discontinued Medications Generic Name Dose Route Start Last Admin Trade Name Herrera PRN Reason Stop Dose Admin Morphine Sulfate 15 mg 08/25/23 10:32 08/25/23 11:15 Morphine Sulfate Immed Release 15 Mg Tablet PO 08/25/23 10:33 15 mg ONCE ONE Administration Medical Decision Making Medical Decision Making [facility] Narrative: 78-year-old female presents with atraumatic left upper extremity Physical exam significant No lower extremity edema.? No calf ttp. Global weakness 2+ radial pulses and brachial pulses equal bilateral. Left upper extremity is noted to have 2+ nonpitting edema from the shoulder down, 1+ pitting edema from the right shoulder down. Normal sensation distally. Discomfort with palpation of entire left arm. No overlying skin changes. Capillary refill less than 2 seconds to bilateral upper extremities. Painful range of motion to left shoulder, elbow, hand and wrist. Normal range of motion to right upper extremity. Concerns for possible gout versus pseudogout versus DVT. Unlikely arterial occlusion palpable pulses radial and brachial bilaterally. Unlikely fracture dislocation due to atraumatic nature. Could also be nerve pain. Unlikely neurovascular compromise or threat to limb. Unlikely atypical presentation of ACS. Edema could be secondary to CHF. I Do not suspect stroke there is no associated weakness left upper extremity. Plan labs, imaging. Differential Diagnosis Differential Diagnoses: The differential diagnosis associated with the presentation includes Concerns for possible gout versus pseudogout versus DVT. Unlikely arterial occlusion palpable pulses radial and brachial bilaterally. Unlikely fracture dislocation due to atraumatic nature. Could also be nerve pain. Unlikely neurovascular compromise or threat to limb. Unlikely atypical presentation of ACS. Edema could be secondary to CHF. I Do not suspect stroke there is no associated weakness left upper extremity. Admission/Observation Consideration of admission/observation: Escalation of care including admission/observation considered Lab Data [facility] Lab Attestation statement: I reviewed the patient's lab results. 08/25/23 10:21 08/25/23 10:21 Labs: Lab Results 08/25/23 Range/Units 10:21 WBC 8.0 (4.8-10.8) X10*3/uL RBC 2.95 L (4.20-5.50) X10*6/uL Hgb 9.6 L (12.0-16.0) g/dl Hct 29.5 L (37.0-47.0) % MCV 100.0 H (80.0-98.0) fL MCH 32.5 (27.0-33.0) pg MCHC 32.5 (31.0-35.0) g/dl RDW 12.9 (11.0-16.0) % Plt Count 199 D (160-400) X10*3/uL MPV 10.8 (9.4-12.3) fL Immature Gran % (Auto) 0.2 (0.0-0.4) % Neut % (Auto) 75.3 H (45-73) % Lymph % (Auto) 14.5 L (20-40) % [place] % (Auto) 8.1 (2-11) % Eos % (Auto) 1.4 (0-4) % Baso % (Auto) 0.5 (0-2) % Lymph # (Auto) 1.2 (1.2-4.9) X10*3/uL [place] # (Auto) 0.7 (0.1-1.2) X10*3/uL Eos # (Auto) 0.1 (0.0-0.4) X10*3/uL Baso # (Auto) 0.0 (0.0-0.2) X10*3/uL Abs Immat Gran (auto) 0.02 (0.00-0.03) X10*3/uL Absolute Neuts (auto) 6.0 (2.0-8.3) x10*3/uL Absolute Nucleated RBC 0.000 (0.0-0.012) X10*3/uL Nucleated RBC % (auto) 0.0 (0.0-0.2) /100WBC PT 18.6 H (11.1-13.3) SEC INR 1.5 H (0.9-1.1) Sodium 138 (135-145) mmol/L Potassium 4.4 (3.3-5.1) mmol/L Chloride 106 (96-108) mmol/L Carbon Dioxide 28 (22-29) mmol/L Anion Gap 8 L (12-20) BUN 49 H (9-16) mg/dL Creatinine 1.79 H (0.5-1.4) mg/dL Estim Creat Clear Calc 24.7 Estimated GFR 28 Random Glucose 139 H (60-115) mg/dL Calcium 7.8 L (8.4-10.2) mg/dL Magnesium 1.7 (1.6-2.6) mg/dL Total Bilirubin 0.2 (0.0-1.0) mg/dL AST 7 (5-31) U/L ALT 9 (0-31) U/L Alkaline Phosphatase 53 (39-117) U/L Troponin I High Sens 4.7 D (<3.5-17.0) ng/L Total Protein 4.6 L (6.5-8.0) g/dL Albumin 2.5 L (3.5-5.0) g/dL Independent Interpretation I performed an independent interpretation of an: EKG (Ventricular rate of 61 RI prolonged, QT/QTC normal. EKG sinus rhythm with first-degree AV block. Left bundle-branch block present. No ST elevations or inversions concerning for acute ischemia.), Plain X-Ray (FINDINGS: Left shoulder: Diffuse demineralization. Acromioclavicular and glenohumeral degenerative type changes. No fracture or dislocation. Visualized left lung and ribs are unremarkable. Left elbow: No fracture or dislocation. Alignment and articulations are maintained. Likely continuous glucose m) and Ultrasound (US/US venous duplex LE LT IMPRESSION: No evidence of deep venous thrombosis involving the left upper extremity.) Radiology Impression Discussion of test interpretation with radiology: I have reviewed the radiologist's reading. External Record Review External record reviewed: Inpatient record, Office record, Outpatient record, Prior outpatient labs, Prior outpatient radiology, Primary care record and Outside ED record Prescription Management I considered prescription management with: Pain Medication Chronic Conditions Patient?s care impacted by: Other (Heart failure, atrial fibrillation on diarrhea, hypertension) Discharge Plan Discharge Clinical Impression: Arm pain, left, First degree AV block Patient Disposition: Home, Self-Care Instructions: Arm Pain (ED) Additional Instructions: Take your medications as prescribed. If you were prescribed antibiotics today, it is important that you take your medication to their entirety, do not skip any doses, do not finish them early. Follow-up with your primary care provider this week. Return to the emergency department with new or worsening symptoms. Such as fevers, chills, chest pain, shortness of breath, nausea, vomiting, dizziness, headache, vision changes, lethargy In case of emergency call 911 Your EKG showed a new first-degree AV block, he can follow up with PCP and/or Cardiology. Nothing to be done about this acutely. Prescriptions: No Action amiodarone 200 mg tablet 200 mg PO DAILY Qty: 90 2RF cefuroxime axetil 250 mg tablet 250 mg PO Q12H Qty: 10 0RF diphenhydramine HCl [Benadryl] 25 mg Capsule 25 mg DAILY PRN (Reason: Allergic Symptoms) Eliquis 5 mg Tablet 5 mg PO BID 30 Days Qty: 60 0RF Hold Instructions: Resume on 03/18/23. insulin lispro [Humalog U-100 Insulin] 100 unit/mL Solution See Protocol subcut QIDACHS Qty: 10 0RF Protocol: Insulin Correction Scale Less than or equal to 110 ---- Give (units): 0 111 to 150 Give (units): 0 151 to 200 Give (units): 2 201 to 250 Give (units): 4 251 to 300 Give (units): 6 301 to 350 Give (units): 8 Greater than 350 Give (units): 10 Call MD if Blood Glucose > : 350 sucralfate 1 gram tablet 1 g PO QID acetaminophen [Tylenol] 325 mg Tablet 650 mg PO Q6H PRN (Reason: Pain) potassium chloride 10 mEq tablet extended release 10 meq PO BID furosemide [Lasix] 40 mg tablet 40 mg PO DAILY oxycodone 10 mg tablet 10 mg PO QID PRN (Reason: pain) Qty: 30 0RF Rx Instructions: Partial Fill upon patient request. cyanocobalamin (vitamin B-12) 1,000 mcg Tablet 1,000 mcg PO DAILY omeprazole 20 mg Capsule,Delayed Release(Dr/Ec) 20 mg PO BID calcium carbonate 500 mg calcium (1,250 mg) Tablet,Chewable 1,000 mg PO Q4H PRN (Reason: Indigestion) sertraline 25 mg Tablet 25 mg PO DAILY Qty: 30 0RF levothyroxine 50 mcg tablet 50 mcg PO DAILY@0600 ferrous sulfate [Iron (ferrous sulfate)] 325 mg (65 mg iron) tablet 325 mg PO DAILY ondansetron HCl 4 mg tablet 4 mg PO Q8H trazodone 50 mg tablet 25 mg PO Q12H PRN (Reason: Anxiety) buspirone 5 mg tablet 5 mg PO TID docusate sodium [Colace] 100 mg capsule 100 mg PO DAILY PRN (Reason: Constipation) Referrals: [facility] [Provider Group] - 2 days
[2023-08-25 10:27] LABS: Basophils Percent Auto 0.5 % (0-2); Eosinophils Absolute Auto 0.1 X10*3/uL (0.0-0.4); Eosinophils Percent Auto 1.4 % (0-4); Hematocrit 29.5 % (37.0-47.0); Hemoglobin 9.6 g/dl (12.0-16.0); Imm Gran Abs Auto 0.02 X10*3/uL (0.00-0.03); Imm Gran Pct Auto 0.2 % (0.0-0.4); Lymphocytes Absolute Auto 1.2 X10*3/uL (1.2-4.9); Lymphocytes Percent Auto 14.5 % (20-40); MANUAL DIFF FLAG NO; Mean Corpuscular HGB Conc 32.5 g/dl (31.0-35.0); Mean Corpuscular Hemoglobin 32.5 pg (27.0-33.0); Mean Platelet Volume 10.8 fL (9.4-12.3); Monocytes Absolute Auto 0.7 X10*3/uL (0.1-1.2); Monocytes Percent Auto 8.1 % (2-11); Neutrophils Percent Auto 75.3 % (45-73); Platelet Count 199 X10*3/uL (160-400); Red Blood Count 2.95 X10*6/uL (4.20-5.50); Red Cell Distribution Width 12.9 % (11.0-16.0)
[2023-08-25 10:34] LABS: INTERNATIONAL NORM RATIO 1.5 (0.9-1.1); Prothrombin Time 18.6 SEC (11.1-13.3)
[2023-08-25 10:42] LABS: Alanine Aminotransferase 9 U/L (0-31); Albumin Level 2.5 g/dL (3.5-5.0); Alkaline Phosphatase 53 U/L (39-117); Anion Gap 8 (12-20); Aspartate Amino Transferase 7 U/L (5-31); Bilirubin Total 0.2 mg/dL (0.0-1.0); Blood Urea Nitrogen 49 mg/dL (9-16); Calcium 7.8 mg/dL (8.4-10.2); Carbon Dioxide 28 mmol/L (22-29); Chloride 106 mmol/L (96-108); Creatinine Clr Calc Pharmacy 24.7; Estimated Glomerular Filt Rate 28; Glucose Random 139 mg/dL (60-115); Magnesium 1.7 mg/dL (1.6-2.6); Potassium 4.4 mmol/L (3.3-5.1); Sodium 138 mmol/L (135-145); Total Protein 4.6 g/dL (6.5-8.0)
[2023-08-25 10:50] LABS: Troponin-I High Sensitivity 4.7 ng/L (<3.5-17.0)
[2023-08-25] MEDS: Morphine Sulfate Immed Release 15 MG TABLET PO (11:15)
[2023-08-25 11:19] VITALS: BP 135/82; PULSE 60; RESP 19; O2SAT 98
[2023-08-25 11:42] VITALS: BP 139/44; PULSE 62; RESP 13; O2SAT 94
[2023-08-25 13:34] VITALS: BP 139/44; PULSE 62; O2SAT 94
--- NOTE | 2023-08-25 14:46 | MHC.CM.ED ---
Received case management consult from Jeannie CROCKETT. Patient came to the ER due to arm pain. Physical therapy eval is completed. Short term rehab is recommended. Referral sent to [facility] at patient's request. [facility] is unable to offer a bed. Met with patient in regards to discharge planning. Patient lives with her and sister, ambulates with a walker and has a home health aide twice week from [facility]. PCP verified. Copy of HCP verified to be on file. Patient has not received any Covid vaccines. Patient made aware that [facility] is unable to offer a bed. Patient started crying stating her has been at [facility] for a month and she hasn't seen him. Patient also stated that no one will be able to visit her if she is in another facility. Emotional support provided. Explained it wasn't safe for patient to return home at this time. Patient aware referral has been broadcasted in [facility] to all facilities within 15 miles that are contracted with [facility]. Bed offers will be discussed with her. Patient verbalized understanding. Attempted to contact patient's sister, Hilda, via telephone at [phone]. Left message requesting return telephone call. Patient's was actually transferred to [facility] at [facility] on 08/10. Continue to monitor for d/c needs.
[2023-08-25 15:19] LABS: COVID-19 Test Negative (Negative); IDNOW Serial# 152EDE1D
--- NOTE | 2023-08-25 16:09 | MHC.CM.ED ---
Pt had several bed offers. Reviewed offers with patient. Pt teary. Unsure of where to go. Requested that CM speak with her sister, Hilda Arnold ([phone]). CM reviewed STR choices. with patients sister. She chose [facility]. Pt agreeable. Bed offer accepted in [facility]. Awaiting auth. Patient has HNE. Pt is aware that insurance authorization will probably be tomorrow and patient will stay overnight. Beatriz CROCKETT aware. Will order dinner. Clinical coordinator Ashanti aware that patient could move to overflow if bed available. Aware that D/C may be tomorrow.
--- NOTE | 2023-08-25 19:26 | PC.NURSE ---
Pharmacy with pt for med recon. Plan of care ongoing.
--- NOTE | 2023-08-25 19:26 | PC.NURSE ---
Pt sitting in bed watching TV. Plan of care ongoing.
[2023-08-25 19:47] LABS: Glucose, Whole Blood 205 mg/dL (60-115)
[2023-08-25 19:52] VITALS: BP 123/54; PULSE 61; RESP 12; TEMP 36.7; O2SAT 97
--- NOTE | 2023-08-25 21:46 | PHA.MEDREC ---
Addendum entered by Ashanti Haider 08/25/23 22:11: Went back and questioned patient about Eliquis, She reports that she is getting samples from her Dr. Addendum entered by Ashanti Haider 08/25/23 21:57: Patient reports taking Eliquis but it is not listed in claim history. Original Note: Pharmacy Consult ? Medication Reconciliation Pharmacy has completed the medication reconciliation. Confirmed medication through claim history and patient. Patient is a poor historian. She was able to recognize some of the medications but otherwise i used claim history to confirm. She does report that she is taking Trazadone QID instead of q12h for at least the last week as she has a lot of anxiety. She reports not taking buspirone 5mg because she is taking Trazadone. She also reports that she thinks she is taking metaclopramide TID instead of QID. Also reports that she took 4 units of insulin last night and no Oxycodone today.
[2023-08-26] VITALS: BP 150/67; PULSE 57; RESP 16; TEMP 36.6; O2SAT 92
[2023-08-26] MEDS: Acetaminophen 325 MG TABLET 975 MG PO (03:41)
--- NOTE | 2023-08-26 04:32 | PC.NURSE ---
pt axox4 c/o left arm pain at 340 am she received tylenol po used commode void 200 ml of yellow urine , and she also ambulated with walker around the nurses station and now resting comfortably in bed.
[2023-08-26 06:39] VITALS: BP 134/58; PULSE 63; RESP 14; TEMP 36.6; O2SAT 94
[2023-08-26 07:23] LABS: Glucose, Whole Blood 183 mg/dL (60-115)
--- NOTE | 2023-08-26 10:30 | MHC.CM.ED ---
Patient remains in ER overflow. Tori Price has obtained insurance auth. Patient can leave at 1230pm. MAYRA SCANLON booked. Med nec with chart. Patient, Debi RN and Jeannie CROCKETT aware. Patient's sister, Deepali, made aware via telephone at [phone]. Continue to monitor for d/c needs.
== END 2023-08-26 12:45 ==
PROVIDERS: Physician Assistant; Emergency Provider Emergency Medicine; PCP Internal Medicine
DX: M79.622 Pain in left upper arm (principal); I44.0 Atrioventricular block, first degree; R26.2 Difficulty in walking, not elsewhere classified; R60.0 Localized edema; M79.602 Pain in left arm; I48.91 Unspecified atrial fibrillation; Z11.52 Encounter for screening for COVID-19; Z79.899 Other long term (current) drug therapy; Z79.01 Long term (current) use of anticoagulants
CPT/HCPCS: 36415; 73030; 73080; 73110; 73130; 80053; 82947; 83735; 84484; 85025; 85610; 87635; 93005; 93971; 97162; 99285

== ENCOUNTER → 2023-08-25 09:50 | Outpatient (BNV) | payer MEDICARE, SELFPAY | PROVIDERS: Emergency Provider Emergency Medicine; PCP Internal Medicine; Visit Provider Internal Medicine | DX: I44.0 Atrioventricular block, first degree (principal); R94.31 Abnormal electrocardiogram [ECG] [EKG] | CPT/HCPCS: 93010 ==

== ENCOUNTER 2023-12-11 13:58 | Outpatient (REF) | payer MEDICARE, SELFPAY ==
--- NOTE | ~2023-12-11 | CT_ITS ---
EXAMINATION: CT HEAD WITHOUT CONTRAST CLINICAL INFORMATION: Parkinsonism secondary. COMPARISON: None. TECHNIQUE: Contiguous axial imaging was performed from the skullbase to vertex without intravenous administration of contrast. This CT examination was performed using dose optimization techniques as appropriate, variously including the following: *Automated exposure control *Adjustment of mA and/or kV according to patient size (this includes techniques or standardized protocols for targeted exams where dose is matched to indication/reason for exam; i.e. extremities or head) *Use of iterative reconstruction technique DLP: 680 mGy-cm. FINDINGS: There is no evidence of acute intracranial hemorrhage or territorial infarction. No abnormal mass effect or midline shift is seen. No extra-axial fluid collections are identified. Moderate to severe chronic white matter microangiopathic changes are present with generalized brain parenchymal volume loss and commensurate ex vacuo prominence of the ventricles. The osseous structures and soft tissues are normal. The mastoid air cells and visualized portions of the paranasal sinuses are well aerated. CT/CT head/brain wo IV con IMPRESSION: No acute intracranial hemorrhage or territorial infarction. Moderate to severe chronic white matter microangiopathy and generalized brain parenchymal volume loss.
== END 2023-12-11 13:59 | disposition home or self-care (01) ==
LOC: HO.CT 13:58
PROVIDERS: PCP Internal Medicine; Visit Provider Psychiatry & Neurology Neurology
DX: G21.9 Secondary parkinsonism, unspecified (principal)
CPT/HCPCS: 70450

== ENCOUNTER 2023-12-29 11:13 | Emergency (ER) | payer MEDICARE, SELFPAY ==
[2023-12-29] VITALS (10 sets, daily range): BP systolic 142–204; BP diastolic 42–71; PULSE 59–71; RESP 13–16; TEMP 36.7–37.1; O2SAT 94–96; BMI 29.0
--- NOTE | ~2023-12-29 | CT_ITS ---
EXAMINATION: CT HEAD WITHOUT CONTRAST CT FACIAL BONES WITHOUT CONTRAST CT CERVICAL SPINE WITHOUT CONTRAST CLINICAL INFORMATION: 78-year-old female status post fall, on Eliquist COMPARISON: CT head from 12/11/2023 TECHNIQUE: Imaging was performed from the skull base to vertex without intravenous administration of contrast. In addition, helical noncontrast CT imaging was acquired through the cervical spine and facial bones and source images were reviewed along with axial reconstructions and sagittal and coronal MPRs. This CT examination was performed using dose optimization techniques as appropriate, variously including the following: *Automated exposure control. *Adjustment of mA and/or kV according to patient size (this includes techniques or standardized protocols for targeted exams where dose is matched to indication/reason for exam; i.e. extremities or head). *Use of iterative reconstruction technique. DLP: 1218 mGy-cm FINDINGS: Head: When compared to the previous examination there is no significant interval change in appearance of moderate to severe chronic white matter microangiopathy changes with generalized brain parenchymal volume loss with prominence of ventricles and sulci. Dystrophic calcifications seen in basal ganglia. No evidence of intracranial hemorrhage masses or mass effect. There is no evidence of skull fracture or evidence of extra-axial fluid or masses. Maxillofacial Bones: No evidence of maxillofacial bone fractures. The zygomatic arches remain intact. No nasal bone fracture. The nasal septum remains midline. No evidence of mandibular or maxillary fracture. The mandibular condyles remain well-seated in their respective temporal articular grooves. Normal appearance of the intraconal and extraconal fat. No evidence of traumatic injury to the extraocular musculature or globes. The mastoid air cells and visualized paranasal sinuses are clear. No layering fluid collections. Cervical Spine: The atlantooccipital and atlantoaxial articulations remain well aligned. Straightening of the normal cervical lordosis with mild reversal lordosis at the level of C3-C4 and narrowing of C4-C5, C5-C6 intervertebral disc spaces and vacuum phenomenon at the level of C4-C5. There is marginal spurring. There is possible posterior disc bulge at the level of C3-C4, correlate clinically if necessary followed by MRI. There is narrowing of the canal at the level of C5-6 and narrowing of neuroforamina on the right. The thyroid gland revealed calcifications on the right and remaining cervical soft tissues are within normal limits. The lung apices demonstrate no abnormalities. CT/CT cervical spine wo IV con IMPRESSION: 1. No acute intracranial, maxillofacial bone, or cervical abnormalities. 2. Degenerative changes in the cervical spine with possible posterior disc bulge at the level of C3-C4 and narrowing of the canal and neuroforamina on the right at the level of C5-C6. 3. Sequela of microangiopathy and global volume loss
--- NOTE | ~2023-12-29 | CT_ITS ---
EXAMINATION: CT CHEST, ABDOMEN AND PELVIS WITHOUT CONTRAST CLINICAL INFORMATION: fall on eliquis, LLQ pain COMPARISON: No pertinent prior studies are available for comparison. TECHNIQUE: Multidetector volumetric imaging was performed from the thoracic inlet through the pubic symphysis without IV contrast. Sagittal and coronal reformatted images were obtained on the technologist's workstation. This CT examination was performed using dose optimization techniques as appropriate, variously including the following: *Automated exposure control *Adjustment of mA and/or kV according to patient size (this includes techniques or standardized protocols for targeted exams where dose is matched to indication/reason for exam; i.e. extremities or head) *Use of iterative reconstruction technique DLP: 695 mGy-cm FINDINGS: CHEST: Lung: The lungs are clear without concerning focal opacity or nodule. A calcified granuloma is present at the left apex as well as more inferiorly in the left upper lobe. An additional single punctate granuloma is seen in the right lower lobe. Mediastinum: The mediastinum is normal. Punctate calcium is seen in the right lobe of the thyroid The central vascular structures are unremarkable. No hilar or mediastinal lymphadenopathy. There is extensive coronary calcium Pericardium/Pleura: No significant effusion. No pleural mass or thickening. Chest Wall/Axilla: Unremarkable ABDOMEN/PELVIS: Peritoneal Space: No significant free air or free fluid identified. Liver, Gallbladder, Biliary Tree: The liver is normal in size, shape, and attenuation. No focal hepatic lesion or biliary ductal dilatation is present. Gallbladder is not seen. Pancreas: Unremarkable Spleen: Unremarkable Adrenal Glands: Unremarkable Kidneys and Ureters: The kidneys are normal in size, shape, and attenuation. No hydronephrosis or calculi seen. Left ureter is dilated measuring almost 1.5 cm in greatest diameter. No calculi or caliectasis is seen. No perinephric stranding. Bladder: Air is present in the bladder. Please correlate with catheterization Gastrointestinal Tract: There are colonic diverticula present without evidence of diverticulitis The small and large bowel are unremarkable. The appendix is not seen but there is no evidence of appendicitis. Abdominal Wall: No significant hernia is appreciated. Tiny periumbilical hernia seen containing only fat. No abdominal wall hematomas Lymph Nodes: No lymphadenopathy. No retroperitoneal hematomas. Vascular: Calcific atherosclerotic changes are present in the aorta and iliofemoral vessels. There is no evidence of an abdominal aortic aneurysm.. The IVC appears unremarkable. PELVIC VISCERA: The uterus and adnexa are unremarkable. OSSEUS STRUCTURES: Degenerative changes are present spine from L3 through S1. There is posterior fixation between the posterior spinous processes at L4-L5. CT/CT abdomen pelvis wo IV con IMPRESSION: 1. No evidence of a traumatic injury in the chest, abdomen or pelvis. 2. Calcified granulomas in the lungs. 3. Dilated left ureter without calculi or caliectasis. 4. Air in the bladder. Please correlate with catheterization. 5. Colonic diverticulosis without diverticulitis. 6. Degenerative changes in the spine with posterior fixation at L4-L5. Fleischner guidelines were followed.
--- NOTE | ~2023-12-29 | XR_ITS ---
EXAMINATION: XR KNEE, LEFT CLINICAL INFORMATION: Fall. Hematoma. Positive thinners. COMPARISON: None available. TECHNIQUE: AP, lateral, and both oblique views of the left knee. FINDINGS: Bones are osteopenic. No fracture or malalignment. There is soft tissue irregularity in the prepatellar and superficial infrapatellar region, potentially corresponding to a wound. Increased soft tissue attenuation in this region likely corresponds to a hematoma. Trace joint effusion. No subcutaneous gas at a calcification is present in the popliteal and runoff arteries. Joint spaces appear relatively well-preserved. XR/XR knee LT 4V IMPRESSION: 1. No acute fracture or malalignment. 2. Soft tissue swelling. Focal soft tissue prominence at the prepatellar and superficial infrapatellar region likely corresponds to a hematoma. No subcutaneous gas.
--- NOTE | 2023-12-29 11:26 | ECG_ITS ---
Test Reason : fall Blood Pressure : / mmHG Vent. Rate : 060 BPM Atrial Rate : 060 BPM P-R Int : 212 ms QRS Dur : 140 ms QT Int : 468 ms P-R-T Axes : 059 000 126 degrees QTc Int : 468 ms Sinus rhythm with 1st degree A-V block Left bundle branch block Abnormal ECG When compared with ECG of 25-AUG-2023 10:45, No significant change was found Referred By: Mari Her Electronically Signed By:SOPHIE BERNARD
[2023-12-29 11:50] LABS: MANUAL DIFF FLAG NO
[2023-12-29 11:55] LABS: Basophils Percent Auto 0.6 % (0-2); Eosinophils Absolute Auto 0.1 X10*3/uL (0.0-0.4); Eosinophils Percent Auto 1.5 % (0-4); Hematocrit 29.4 % (37.0-47.0); Hemoglobin 9.3 g/dl (12.0-16.0); Imm Gran Abs Auto 0.02 X10*3/uL (0.00-0.03); Imm Gran Pct Auto 0.3 % (0.0-0.4); Lymphocytes Absolute Auto 0.9 X10*3/uL (1.2-4.9); Lymphocytes Percent Auto 12.5 % (20-40); Mean Corpuscular HGB Conc 31.6 g/dl (31.0-35.0); Mean Corpuscular Hemoglobin 31.5 pg (27.0-33.0); Mean Corpuscular Volume 99.7 fL (80.0-98.0); Mean Platelet Volume 11.1 fL (9.4-12.3); Monocytes Absolute Auto 0.6 X10*3/uL (0.1-1.2); Neutrophils Absolute Auto 5.6 x10*3/uL (2.0-8.3); Neutrophils Percent Auto 77.1 % (45-73); Platelet Count 201 X10*3/uL (160-400); Red Blood Count 2.95 X10*6/uL (4.20-5.50); Red Cell Distribution Width 14.1 % (11.0-16.0); White Blood Count 7.2 X10*3/uL (4.8-10.8)
--- NOTE | 2023-12-29 11:55 | ED_ITS ---
HPI - Fall General Chief Complaint: Fall Stated Complaint: FALL ON SAT,KNEE PAIN,FOREHEAD BRUISE,+THINNERS Time Seen by Provider: 12/29/23 11:15 Source: patient, EMS, RN notes reviewed and old records reviewed Mode of arrival: EMS History of Present Illness ED Provider: Mari Her PA-C HPI Narrative: 78-year-old female with a past medical history of anxiety, GI bleed, anemia, CHF, proximal AFib on Eliquis, CKD, HTN, diabetes, presenting to the ED via EMS complaining of left knee pain, mild headache, and ecchymosis to right eyebrow s/p mechanical fall on Thursday. Patient states she was getting up from the toilet when lost her balance falling onto knee. Poor historian, unsure why she really fell. Also reports some lower abdominal discomfort. Has been minimally ambulatory with pain. Denies CP/SOB, nausea/vomiting. Lives with and sister, ambulates at baseline with walker Related Data Home Medications ?Medication ?Instructions ?Recorded ?Confirmed levothyroxine 50 mcg tablet 50 mcg PO DAILY@0600 10/11/22 08/25/23 docusate sodium 100 mg capsule 100 mg PO DAILY PRN Constipation 11/27/22 08/25/23 (Colace) acetaminophen 325 mg tablet 650 mg PO Q6H PRN Pain 12/16/22 08/25/23 (Tylenol) sucralfate 1 gram tablet 1 g PO QID 12/16/22 08/25/23 furosemide 40 mg tablet (Lasix) 40 mg PO DAILY 02/13/23 08/25/23 potassium chloride 10 mEq 10 meq PO BID 02/13/23 08/25/23 tablet,extended release calcium carbonate 1,000 mg PO Q4H PRN Indigestion 03/03/23 08/25/23 cyanocobalamin (vitamin B-12) 1,000 mcg PO DAILY 03/03/23 08/25/23 1,000 mcg tablet ferrous sulfate 325 mg (65 mg 325 mg PO DAILY 03/03/23 08/25/23 iron) tablet (Iron (ferrous sulfate)) omeprazole 20 mg capsule,delayed 20 mg PO BID 03/03/23 08/25/23 release trazodone 50 mg tablet 50 mg PO QID PRN Anxiety 03/03/23 08/25/23 amlodipine 5 mg tablet 5 mg PO DAILY 08/25/23 08/25/23 gabapentin 100 mg capsule 100 mg PO TID 08/25/23 08/25/23 metoclopramide HCl 5 mg tablet 5 mg PO QID 08/25/23 08/25/23 Previous Rx's ?Medication ?Instructions ?Recorded apixaban 5 mg tablet (Eliquis) 5 mg PO BID 30 days #60 tabs 11/07/22 insulin lispro 100 unit/mL See Protocol subcut QIDACHS #10 mL 11/07/22 subcutaneous solution (Humalog U-100 Insulin) oxycodone 10 mg tablet 10 mg PO QID PRN pain #30 tabs 02/13/23 amiodarone 200 mg tablet 200 mg PO DAILY #90 tabs 03/23/23 morphine 15 mg immediate release 15 mg PO Q6H PRN pain 5 days #10 08/26/23 tablet tabs Allergies Allergy/AdvReac Type Severity Reaction Status Date / Time [facility]ofl[facility] [[facility] AdvReac Mild flushed Verified 12/29/23 11:29 Review of Systems 2 Review of Systems: Constitutional: No Fever, No Chills,No Fatigue, No Malaise ENT/Mouth: No Ear Pain, No Nasal Congestion, No sore throat, No Rhinorrhea, No Swallowing Difficulty Eyes: No Eye Pain, No Swelling, No Redness, No Vision Changes Cardiovascular: No Chest Pain, No SOB, No Edema, No Palpitations Respiratory: No Cough, No Sputum, No Dyspnea Gastrointestinal: No Nausea, No Vomiting, No Diarrhea, No Constipation, No Abdominal pain Genitourinary: No irregular bleeding, No Dysuria, No Urinary Frequency, No Hematuria, No Urinary Incontinence/retention, No Urgency, No Flank Pain Musculoskeletal: + joint pain, No Myalgias, + Joint Swelling Skin: + Skin Lesions, No rash Neuro: No Weakness, No Numbness, No Paresthesias, No Loss of Consciousness, No Dizziness, +Headache Yes all other systems are reviewed and are negative Constitutional: Constitutional: Reports as per [facility] Past Medical History Attestation statement: The following information was validated with the patient. Source: old records reviewed Medical History GRACE (generalized anxiety disorder) MDD (major depressive disorder), recurrent episode GI bleed Anemia Congestive heart failure Depressive disorder PAF (paroxysmal atrial fibrillation) Spinal stenosis CKD (chronic kidney disease), stage IV Diastolic CHF Thyroid activity decreased HTN (hypertension) Diabetes Family History Family History Other Diabetes Social History Social History Household Members: Spouse Housing: House Do you presently have visiting nurse or other home services: Yes Alcohol intake: never Patient Tobacco Use Status: Never used Tobacco Smoked in Last 30 Days: No Second Hand Smoke Exposure: No Use of substances other than those prescribed or required for medical reasons: No Advance Directives: Yes Advance Directives on File: Yes Advance Directives Date on File: 12/16/22 service: No Current occupational status: retired Physical Exam 2 Vital Signs: Vital Signs: Last Vital Signs Temp 98.1 F 12/29/23 12:00 Pulse 59 12/29/23 16:00 Resp 16 12/29/23 16:00 BP 170/58 H 12/29/23 16:00 Pulse Ox 94 12/29/23 16:00 O2 Del Method Room Air 12/29/23 16:00 BMI result Body Mass Index 29.0 Const: General: cooperative, healthy appearing and no acute distress O rientation/consciousness: patient oriented x3 Limitations: no limitations HEENT: Other: + ecchymosis noted to right eyebrow with mild tenderness Head: Yes normal to inspection, No Sandy's sign and No raccoon eyes E ars: hearing grossly normal bilaterally General nose exam: Normal external nose present Throat: Yes posterior oropharynx normal Eyes: General: appearance normal, both eyes and all related structures P upils: Equal, round and reactive pupils present EOM: EOMs intact bilaterally Neck: Neck: Yes normal visual inspection and Yes no meningeal signs Chest: Chest palpation & inspection: normal inspection of the chest, no crepitus and no tenderness Resp: Effort & Inspection: normal respiratory effort and no respiratory distress Cardio: Rate: regular rate Heart sounds: S1 normal heart sound present and S2 normal heart sound present GI: Inspection: Yes normal to inspection Palpation (GI): Soft to palpation, Tenderness to palpation present (GI) in the LLQ; with no rebound tenderness, no guarding and not rigid : General: Yes no CVA tenderness Back/Spine/Pelvis: Other: No midline cervical/thoracic/lumbar spinous tenderness/step-off or deformity Back: no CVA tenderness Skin: Rashes: no rashes Wounds: no wounds Neuro: General: patient oriented x3, tone normal, moves all extremities, no meningeal signs, no focal motor deficits and CN's II-XI intact bilaterally C ranial nerves: Yes CN's II-XII intact bilaterally and Yes Equal, round and reactive pupils present Extrem: Other: Please refer to image above. Ecchymotic and swollen left knee with appreciable hematoma. Exquisitely tender. No fluctuance. Decreased ROM secondary to pain. Neurovascular intact distally. Noncircumferential Course Course Course Narrative: -1246--H&H at patient's baseline. Chronic CKD. Initial troponin 12.5 > will obtain 3 hour repeat XR knee LT 4V IMPRESSION: 1. No acute fracture or malalignment. 2. Soft tissue swelling. Focal soft tissue prominence at the prepatellar and superficial infrapatellar region likely corresponds to a hematoma. No subcutaneous gas. > dressing applied and Tc wrap for compression -orthos negative CT head/brain wo IV con/CT facial bones wo IV con/CT cervical spine wo IV con IMPRESSION: 1. No acute intracranial, maxillofacial bone, or cervical abnormalities. 2. Degenerative changes in the cervical spine with possible posterior disc bulge at the level of C3-C4 and narrowing of the canal and neuroforamina on the right at the level of C5-C6. 3. Sequela of microangiopathy and global volume loss CT chest wo IV con/CT abdomen pelvis wo IV con IMPRESSION: 1. No evidence of a traumatic injury in the chest, abdomen or pelvis. 2. Calcified granulomas in the lungs. 3. Dilated left ureter without calculi or caliectasis. 4. Air in the bladder. Please correlate with catheterization. 5. Colonic diverticulosis without diverticulitis. 6. Degenerative changes in the spine with posterior fixation at L4-L5. Fleischner guidelines were followed. > patient was straight cathed in the ED > will obtain PT/case management consult in the ED. Physician observation initiated at 15:00 -1630--ED care transferred to [facility] pending PT/case management Medications Administered Generic Name Dose Route Start Last Admin Trade Name Freq PRN Reason Stop Dose Admin Acetaminophen/Codeine Phosphate 1 tab 12/29/23 16:23 12/29/23 16:37 Acetaminophen/Codeine 300-30mg Tablet PO 1 tab Q6H PRN Administration Pain, Severe (Pain Scale 7-10) Discontinued Medications Generic Name Dose Route Start Last Admin Trade Name Juveq PRN Reason Stop Dose Admin Morphine Sulfate 2 mg 12/29/23 13:42 12/29/23 13:52 Morphine Sulfate 2 Mg/Ml Cartridge IVPUSH 12/29/23 13:43 2 mg ONCE ONE Administration Protocol Medical Decision Making Medical Decision Making MDM Narrative: 78-year-old female with a past medical history of anxiety, GI bleed, anemia, CHF, proximal AFib on Eliquis, CKD, HTN, diabetes, presenting to the ED via EMS complaining of left knee pain, mild headache, and ecchymosis to right eyebrow s/p mechanical fall on Thursday. On exam vital signs stable, NAD, nontoxic appearing, no focal neuro deficits, no midline spinous tenderness throughout, ecchymosis noted to right eyebrow and left knee, please refer to image. Abdomen soft with left lower quadrant tenderness, no rebound or guarding. Concern for ICH vs fractures vs intra-abdominal injury vs colitis/diverticulitis. Lower suspicion for infection. Rule out metabolic infectious etiologies. Low suspicion for severe sepsis Plan: EKG, labs, UA, CTs, x-ray, re-evaluate Please refer to course for remaining clinical decision making, interpretation of labs/imaging results, and discussions with consultants and/or family members. Differential Diagnosis Differential Diagnoses: The differential diagnosis associated with the presentation includes As above Admission/Observation Consideration of admission/observation: Escalation of care including admission/observation considered Lab Data [facility] Lab Attestation statement: I reviewed the patient's lab results. 12/29/23 11:45 12/29/23 11:45 Labs: Lab Results 12/29/23 12/29/23 12/29/23 Range/Units 11:45 14:09 15:05 WBC 7.2 (4.8-10.8) X10*3/uL RBC 2.95 L (4.20-5.50) X10*6/uL Hgb 9.3 L (12.0-16.0) g/dl Hct 29.4 L (37.0-47.0) % MCV 99.7 H (80.0-98.0) fL MCH 31.5 (27.0-33.0) pg MCHC 31.6 (31.0-35.0) g/dl RDW 14.1 (11.0-16.0) % Plt Count 201 (160-400) X10*3/uL MPV 11.1 (9.4-12.3) fL Immature Gran % (Auto) 0.3 (0.0-0.4) % Neut % (Auto) 77.1 H (45-73) % Lymph % (Auto) 12.5 L (20-40) % [place] % (Auto) 8.0 (2-11) % Eos % (Auto) 1.5 (0-4) % Baso % (Auto) 0.6 (0-2) % Lymph # (Auto) 0.9 L (1.2-4.9) X10*3/uL [place] # (Auto) 0.6 (0.1-1.2) X10*3/uL Eos # (Auto) 0.1 (0.0-0.4) X10*3/uL Baso # (Auto) 0.0 (0.0-0.2) X10*3/uL Abs Immat Gran (auto) 0.02 (0.00-0.03) X10*3/uL Absolute Neuts (auto) 5.6 (2.0-8.3) x10*3/uL Absolute Nucleated RBC 0.000 (0.0-0.012) X10*3/uL Nucleated RBC % (auto) 0.0 (0.0-0.2) /100WBC PT 18.2 H (11.1-13.3) SEC INR 1.5 H (0.9-1.1) Sodium 138 (135-145) mmol/L Potassium 4.5 (3.3-5.1) mmol/L Chloride 107 (96-108) mmol/L Carbon Dioxide 24 (22-29) mmol/L Anion Gap 12 (12-20) BUN 49 H (9-16) mg/dL Creatinine 1.71 H (0.5-1.4) mg/dL Estim Creat Clear Calc 25.9 Estimated GFR 29 Random Glucose 186 H (60-115) mg/dL Calcium 7.9 L (8.4-10.2) mg/dL Magnesium 1.8 (1.6-2.6) mg/dL Total Bilirubin 0.3 (0.0-1.0) mg/dL Direct Bilirubin 0.1 (0.0-0.5) mg/dL AST 8 (5-31) U/L ALT < 5 (0-31) U/L Alkaline Phosphatase 86 (39-117) U/L Troponin I High Sens 12.5 D 12.2 (<3.5-17.0) ng/L Total Protein 5.8 L (6.5-8.0) g/dL Albumin 3.2 L (3.5-5.0) g/dL Lipase 11 (8-78) U/L Urine Color Yellow Urine Appearance Clear Urine pH 5.5 (5.0-9.0) Ur Specific [place] 1.010 (1.005-1.025) Urine Protein Negative (Neg-Trace) mg/dL Urine Glucose (UA) Negative (Negative) mg/dL Urine Ketones Negative (Negative) mg/dL Urine Blood Negative (Negative) Urine Nitrite Negative (Negative) Ur Leukocyte Esterase Trace H (Negative) Urine RBC 0-2 (0-2) /HPF Urine WBC 6-10 H (0-5) /HPF Ur Squamous Epith Cells 0-2 (0-2) /HPF Urine Bacteria 4+ (None Seen) Hyaline Casts 0-2 (0-2) /LPF COVID-19 (IBRAHIMA) (Negative) COVID-19 Clin Com 12/29/23 Range/Units 15:11 WBC (4.8-10.8) X10*3/uL RBC (4.20-5.50) X10*6/uL Hgb (12.0-16.0) g/dl Hct (37.0-47.0) % MCV (80.0-98.0) fL MCH (27.0-33.0) pg MCHC (31.0-35.0) g/dl RDW (11.0-16.0) % Plt Count (160-400) X10*3/uL MPV (9.4-12.3) fL Immature Gran % (Auto) (0.0-0.4) % Neut % (Auto) (45-73) % Lymph % (Auto) (20-40) % [place] % (Auto) (2-11) % Eos % (Auto) (0-4) % Baso % (Auto) (0-2) % Lymph # (Auto) (1.2-4.9) X10*3/uL [place] # (Auto) (0.1-1.2) X10*3/uL Eos # (Auto) (0.0-0.4) X10*3/uL Baso # (Auto) (0.0-0.2) X10*3/uL Abs Immat Gran (auto) (0.00-0.03) X10*3/uL Absolute Neuts (auto) (2.0-8.3) x10*3/uL Absolute Nucleated RBC (0.0-0.012) X10*3/uL Nucleated RBC % (auto) (0.0-0.2) /100WBC PT (11.1-13.3) SEC INR (0.9-1.1) Sodium (135-145) mmol/L Potassium (3.3-5.1) mmol/L Chloride (96-108) mmol/L Carbon Dioxide (22-29) mmol/L Anion Gap (12-20) BUN (9-16) mg/dL Creatinine (0.5-1.4) mg/dL Estim Creat Clear Calc Estimated GFR Random Glucose (60-115) mg/dL Calcium (8.4-10.2) mg/dL Magnesium (1.6-2.6) mg/dL Total Bilirubin (0.0-1.0) mg/dL Direct Bilirubin (0.0-0.5) mg/dL AST (5-31) U/L ALT (0-31) U/L Alkaline Phosphatase (39-117) U/L Troponin I High Sens (<3.5-17.0) ng/L Total Protein (6.5-8.0) g/dL Albumin (3.5-5.0) g/dL Lipase (8-78) U/L Urine Color Urine Appearance Urine pH (5.0-9.0) Ur Specific [place] (1.005-1.025) Urine Protein (Neg-Trace) mg/dL Urine Glucose (UA) (Negative) mg/dL Urine Ketones (Negative) mg/dL Urine Blood (Negative) Urine Nitrite (Negative) Ur Leukocyte Esterase (Negative) Urine RBC (0-2) /HPF Urine WBC (0-5) /HPF Ur Squamous Epith Cells (0-2) /HPF Urine Bacteria (None Seen) Hyaline Casts (0-2) /LPF COVID-19 (IBRAHIMA) Negative (Negative) COVID-19 Clin Com See Note Independent Interpretation I performed an independent interpretation of an: EKG (My interpretation EKG sinus rhythm with first-degree AV block with left bundle-branch. Rate of 60. No STEMI), Plain X-Ray and CT Scan Radiology Impression Discussion of test interpretation with radiology: I have reviewed the radiologist's reading. Independent Historian Clinical information obtained from an independent historian. History obtained from or confirmed by: EMS External Record Review External record reviewed: Inpatient record, Office record, Outpatient record, Prior outpatient labs, Prior outpatient radiology, Primary care record and Outside ED record Tests considered The following testing was considered but not selected: As above Prescription Management I considered prescription management with: Pain Medication Chronic Conditions Patient?s care impacted by: Other Discharge Plan Discharge Clinical Impression: Traumatic hematoma of left knee, Fall Patient Disposition: Still a Patient Prescriptions: No Action amiodarone 200 mg tablet 200 mg PO DAILY Qty: 90 2RF amlodipine 5 mg tablet 5 mg PO DAILY metoclopramide HCl 5 mg tablet 5 mg PO QID gabapentin 100 mg capsule 100 mg PO TID morphine 15 mg tablet 15 mg PO Q6H PRN (Reason: pain) 5 Days Qty: 10 0RF Rx Instructions: Partial Fill upon patient request. Eliquis 5 mg Tablet 5 mg PO BID 30 Days Qty: 60 0RF Hold Instructions: Resume on 03/18/23. insulin lispro [Humalog U-100 Insulin] 100 unit/mL Solution See Protocol subcut QIDACHS Qty: 10 0RF Protocol: Insulin Correction Scale Less than or equal to 110 ---- Give (units): 0 111 to 150 Give (units): 0 151 to 200 Give (units): 2 201 to 250 Give (units): 4 251 to 300 Give (units): 6 301 to 350 Give (units): 8 Greater than 350 Give (units): 10 Call MD if Blood Glucose > : 350 sucralfate 1 gram tablet 1 g PO QID acetaminophen [Tylenol] 325 mg Tablet 650 mg PO Q6H PRN (Reason: Pain) potassium chloride 10 mEq tablet extended release 10 meq PO BID furosemide [Lasix] 40 mg tablet 40 mg PO DAILY oxycodone 10 mg tablet 10 mg PO QID PRN (Reason: pain) Qty: 30 0RF Rx Instructions: Partial Fill upon patient request. cyanocobalamin (vitamin B-12) 1,000 mcg Tablet 1,000 mcg PO DAILY omeprazole 20 mg Capsule,Delayed Release(Dr/Ec) 20 mg PO BID calcium carbonate 500 mg calcium (1,250 mg) Tablet,Chewable 1,000 mg PO Q4H PRN (Reason: Indigestion) levothyroxine 50 mcg tablet 50 mcg PO DAILY@0600 ferrous sulfate [Iron (ferrous sulfate)] 325 mg (65 mg iron) tablet 325 mg PO DAILY trazodone 50 mg tablet 50 mg PO QID PRN (Reason: Anxiety) docusate sodium [Colace] 100 mg capsule 100 mg PO DAILY PRN (Reason: Constipation) Print Language: Setswana
[2023-12-29 12:02] LABS: INTERNATIONAL NORM RATIO 1.5 (0.9-1.1); Prothrombin Time 18.2 SEC (11.1-13.3)
[2023-12-29 12:15] LABS: Alanine Aminotransferase < 5 U/L (0-31); Albumin Level 3.2 g/dL (3.5-5.0); Alkaline Phosphatase 86 U/L (39-117); Anion Gap 12 (12-20); Aspartate Amino Transferase 8 U/L (5-31); Bilirubin Direct 0.1 mg/dL (0.0-0.5); Bilirubin Total 0.3 mg/dL (0.0-1.0); Blood Urea Nitrogen 49 mg/dL (9-16); Calcium 7.9 mg/dL (8.4-10.2); Carbon Dioxide 24 mmol/L (22-29); Chloride 107 mmol/L (96-108); Creatinine Clr Calc Pharmacy 25.9; Estimated Glomerular Filt Rate 29; Glucose Random 186 mg/dL (60-115); Lipase 11 U/L (8-78); Magnesium 1.8 mg/dL (1.6-2.6); Potassium 4.5 mmol/L (3.3-5.1); Sodium 138 mmol/L (135-145); Total Protein 5.8 g/dL (6.5-8.0)
[2023-12-29 12:21] LABS: Troponin-I High Sensitivity 12.5 ng/L (<3.5-17.0)
--- NOTE | 2023-12-29 12:43 | MHC.EDTECH ---
Significant delay in obtaining EKG as EKG machine was in use for another patient and then this patient was taken to CT. Ekg completed at [address] Wylie and given to provider Mari CROCKETT
--- NOTE | 2023-12-29 13:44 | MHC.EDTECH ---
pt turned manager application development panda, when entering she said she had the sensation of a full bladder but could not urinate, told RN and bladder scanned the pt. pt tolerated the scan well.
[2023-12-29] MEDS: Morphine Sulfate 2 MG/ML CARTRIDGE IVPUSH (13:52)
[2023-12-29 14:15] LABS: Appearance Urine Clear; Color Urine Yellow; Glucose Urine UA Negative (Negative); Leukocyte Esterase Urine Trace (Negative); Nitrite Urine Negative (Negative); PH 5.5 (5.0-9.0); UMIC TRIGGER UACC YES; Urine Blood Negative (Negative); Urine Ketones Negative (Negative); Urine Protein Negative (Neg-Trace)
[2023-12-29 14:18] LABS: Bacteria Urine 4+ (None Seen); Hyaline Casts Urine 0-2 /LPF (0-2); RBC Urine 0-2 /HPF (0-2); Squamous Epithelial Cell Urine 0-2 /HPF (0-2); UACC Culture Trigger YES
[2023-12-29 15:38] LABS: COVID-19 Test Negative (Negative); IDNOW Serial# 152EDE1D
[2023-12-29 15:50] LABS: Troponin-I High Sensitivity 12.2 ng/L (<3.5-17.0)
[2023-12-29] MEDS: Acetaminophen/Codeine 300-30mg Tablet 1 TAB PO (16:37)
--- NOTE | 2023-12-29 18:20 | PC.NURSE ---
REPORT GIVEN TO LALITHA MONSALVE. PHARMACY CONTACTED TO COMPLETE MED REC. TRANSPORT CONTACTED.
--- NOTE | 2023-12-29 19:07 | MHC.EDTECH ---
pt changed over to the overflow, placed in room 4 on a hospital bed, pt was seen by the RN and placed back on a pure-wick at this time. Needed verbal reassurance r/t anxiety.
--- NOTE | 2023-12-29 19:30 | PHA.MEDREC ---
Pharmacy Consult ? Medication Reconciliation Pharmacy has completed the medication reconciliation.Med rec complete, patient is not a good historian and also does not know her medications. Patient had a written list and there is pharmacy claim history. Carbidopa/levodopa and sertaline were recently prescribed but unclear if she has started taking these. She also has apixaban on her home list but no claim history for past year that shows she has filled this medication.
--- NOTE | 2023-12-29 19:44 | PC.NURSE ---
Addendum entered by Cece Virgen RN 12/30/23 04:17: patient anxious and weepy. c/o pain, already medicated for pain PRN. call panda in reach. Addendum entered by Cece Virgen RN 12/30/23 02:34: patient sleeping, did not disturb. call panda at bedside. Addendum entered by Cece Virgen RN 12/30/23 01:23: incontinent care provided, bed changed, purewick changed, medicated for pain with PRN, see MAR. call panda in reach. Addendum entered by Cece Virgen RN 12/30/23 00:15: patient asleep, RN did not administer pain medication when finding patient sleeping. call panda in reach. Addendum entered by Cece Virgen RN 12/29/23 21:27: pt requesting something for pain, pain medication not due for another hour. patient notified. see head to toe assessment. call amarilys in reach. Original Note: pt admitted to ED overflow around 19:20. transferred to ED overflow bed with the assistance of transport. patient a&ox3, tearful and guarded. patient states I'm scared. RN reassuring patient that they are safe. patient has bruising to right eyebrow, left knee is wrapped with alejandra wrap, CDI - where hematoma is located. patient states pain is decreased at this time, reports 2/10. LSCTA, s1 s2 heard upon auscultation. patient abdomen is large obese, soft, bowel sounds in all four quadrants, normoactive. patient is unable to move or ambulate at this time, but is independent with a walker at baseline. patient watching television in bed, bed alarm on and activated for patient safety. purewick in place for hygiene and prevention of skin breakdown. all needs met, call panda in reach. safety and comfort maintained.
--- NOTE | 2023-12-29 20:50 | MHC.EDTECH ---
assisted pt to bedpan at this time, removed pure-wick while pt attempts to have a BM
--- NOTE | 2023-12-29 21:10 | MHC.EDTECH ---
at this time assisted the pt off the bedpan and replaced the purewick w/ a fresh one, repositioned pt and gave verbal reassurance prior to leaving room, call panda within reach
--- NOTE | 2023-12-29 21:56 | MHC.CM.ED ---
Addendum entered by Madelin Carbajal 12/29/23 23:12: F2F completed and uploaded. Original Note: CM met with this patient at the request of Mari CROCKETT. Pt lives at home with her and sister in law. Uses a wheeled walker and a cane. Bathroom is handicapped accessible. Pt has a UPHOLSTERY SEWER twice a week and MOW from [facility]. Pt has weekly telephone therapy sessions on with [facility] provider. Pt and cannot remember therapist's name. Pt has a hx of GRACE and MDD. Pt fell last Thursday and was refusing to come to ED. Pt feels she has been in and out of the hospital lately. Pt is agreeable to PT in the morning and STR only at [facility]. Pt states she will not go anywhere else. If [facility] does not have a bed, patient is agreeable to home PT with [facility], as she has had them in the past. CM spoke to , Hesham, who tells CM that he would like her to agree to STR. He is concerned about her depression. Verifies that patient speaks weekly with a therapist, but he cannot remember the name. PCP is [facility]. HCP is on file. CM will place referral to [facility] and to [facility]. Will not yet complete F2F pending bed offer from [facility]. CM will follow for discharge planning.
--- NOTE | 2023-12-29 22:20 | MHC.EDTECH ---
at this time the pt refused 2200 VS and requested a warm blanket which she was given, made comfortable, given call button and given verbal reassurance prior to exiting room
--- NOTE | 2023-12-29 23:59 | MHC.EDTECH ---
This tech took over care of patient at 2300,hourly rounds complete,patient is sleeping at this time,call panda in reach
--- NOTE | 2023-12-30 00:13 | MHC.EDTECH ---
Patient has a pure-wick in place,patient is clean and dry at this time
[2023-12-30] MEDS: Acetaminophen/Codeine 300-30mg Tablet 1 TAB PO (01:22)
--- NOTE | 2023-12-30 03:42 | MHC.EDTECH ---
Hourly rounds completed,patient was incont,RN changed patient and replaced pure-wick,pt is clean and dry at this time,call panda in reach and bed alarm on for safety.
[2023-12-30 04:11] VITALS: BP 167/57; PULSE 72; RESP 18; TEMP 37.2; O2SAT 96
--- NOTE | 2023-12-30 04:17 | MHC.EDTECH ---
Patient rang the call panda for some water, patient drank 120MLS,vitals taken,BP is slightly elevated RN was made aware, patient is tearful, she states she wants to go home, gave pt a back rub and gave her reassurance .
--- NOTE | 2023-12-30 05:31 | MHC.EDTECH ---
Patient was incont. of a large amount of urine,patient rolled on side and pure wick came out,patient was cleaned and susan-care given,cream to bottom and patient placed on right side with pillows a new pure-wick placed and is draining at this time 100MLS of clear yellow urine in canister.
--- NOTE | 2023-12-30 06:02 | PC.NURSE ---
pt a&ox3, weepy. crying to go home, repositioned to left side for comfort. patient c/o alejandra wrap being wrapped around the back of the knee, educated on the reasoning for the alejandra wrap. patient given incontinence care - and purewick changed. patient reassured that they are safe. all needs met, call panda within reach.
--- NOTE | 2023-12-30 08:07 | MHC.EDTECH ---
brekfast given. patient not hungry at this time. patient only requested orange juice.
[2023-12-30] MEDS: Cyanocobalamin (Vitamin B-12) 1,000 MCG TABLET 1000 MCG PO (09:40)
[2023-12-30] MEDS: Furosemide 40 MG TABLET PO (09:40)
[2023-12-30] MEDS: Amiodarone HCL 200 MG TABLET PO (09:40)
[2023-12-30] MEDS: busPIRone HCl 5 MG TABLET PO (09:40)
[2023-12-30] MEDS: Apixaban 5 MG TABLET PO (09:40)
[2023-12-30] MEDS: Ferrous Sulfate 324 MG TABLET.DR PO (09:45)
[2023-12-30] MEDS: Gabapentin 100 MG CAPSULE PO (09:45)
[2023-12-30] MEDS: Omeprazole 20 MG CAPSULE.DR PO (09:45)
[2023-12-30] MEDS: Sucralfate 1 GM TABLET PO (09:45)
[2023-12-30] MEDS: Levothyroxine Sodium 50 MCG TABLET PO (09:45)
[2023-12-30] MEDS: Potassium Chloride ER 10 MEQ TABLET.ER PO (09:45)
[2023-12-30] MEDS: Acetaminophen 325 MG TABLET 650 MG PO (09:51)
--- NOTE | 2023-12-30 10:26 | MHC.CM.ED ---
Addendum entered by Arleen Trejo 12/30/23 12:53: [facility] is not able to accept patient. Patient has [employer]. Referral broadcasted in [employer]. [facility] is the only agency that is able to accept patient. Original Note: Patient remains in ER overflow. Physical therapy eval completed. Home with services recommended. Patient will d/c home with [facility]. Patient's , [facility] will transport patient home at 11am. Patient, Patience ANYLOR and Mari CROCKETT aware. Continue to monitor for d/c needs.
[2023-12-30 11:16] VITALS: BP 169/56; PULSE 69; RESP 18; TEMP 37.4; O2SAT 95
== END 2023-12-30 11:17 | disposition home or self-care (01) ==
PROVIDERS: Physician Assistant; Emergency Provider Emergency Medicine; PCP Internal Medicine
DX: S80.02XA Contusion of left knee, initial encounter (principal); W18.30XA Fall on same level, unspecified, initial encounter; Y93.9 Activity, unspecified; Y92.9 Unspecified place or not applicable; Y99.9 Unspecified external cause status; R51.9 Headache, unspecified; M25.562 Pain in left knee; I48.0 Paroxysmal atrial fibrillation; Z79.01 Long term (current) use of anticoagulants; E11.22 Type 2 diabetes mellitus with diabetic chronic kidney disease; I13.0 Hypertensive heart and chronic kidney disease with heart failure and stage 1 through stage 4 chronic kidney disease, or unspecified chronic kidney disease; N18.4 Chronic kidney disease, stage 4 (severe); I50.30 Unspecified diastolic (congestive) heart failure; R10.30 Lower abdominal pain, unspecified
CPT/HCPCS: 36415; 70450; 70486; 71250; 72125; 73564; 74176; 80048; 80076; 81001; 83690; 83735; 84484; 85025; 85610; 87086; 87088; 87186; 87635; 93005; 97162; 99285; J2270

== ENCOUNTER → 2023-12-29 11:26 | Outpatient (BNV) | payer MEDICARE, SELFPAY | PROVIDERS: Emergency Provider Emergency Medicine; PCP Internal Medicine; Visit Provider Internal Medicine | DX: I44.0 Atrioventricular block, first degree (principal) | CPT/HCPCS: 93010 ==

== ENCOUNTER 2024-01-27 18:34 | Emergency (ER) | payer MEDICARE, SELFPAY ==
--- NOTE | ~2024-01-27 | XR_ITS ---
EXAMINATION: XR tibia fibula RT 2V, XR knee RT 2V INDICATION: fall, pain COMPARISON: No pertinent prior studies are currently available for comparison. TECHNIQUE: 2 views of the right knee and 2 views of the right tibia and fibula FINDINGS: No significant knee joint effusion. Diffuse osteopenia about the knee but no acute fracture or dislocation. No bony destructive lesions or periosteal reaction. No acute fracture or dislocation in the visualized tibia or fibula. Diffuse osteopenia about the ankle and visualized foot. Extensive vascular calcification present. XR/XR tibia fibula RT 2V IMPRESSION: Chronic appearing and degenerative changes but no acute fracture or dislocation seen.
--- NOTE | ~2024-01-27 | CT_ITS ---
EXAMINATION: CT HEAD WITHOUT CONTRAST CT CERVICAL SPINE WITHOUT CONTRAST CLINICAL INFORMATION: Fall. On blood thinners. COMPARISON: CT head December 29, 2023. CT cervical spine December 29, 2023 TECHNIQUE: Imaging was performed from the skull base to vertex without intravenous administration of contrast. In addition, helical noncontrast CT imaging was acquired through the cervical spine and source images were reviewed along with axial reconstructions and sagittal and coronal MPRs. [This CT examination was performed using dose optimization techniques as appropriate, variously including the following: *Automated exposure control *Adjustment of mA and/or kV according to patient size (this includes techniques or standardized protocols for targeted exams where dose is matched to indication/reason for exam; i.e. extremities or head) *Use of iterative reconstruction technique] DLP: 908 mGy-cm FINDINGS: HEAD: No intracranial mass, hemorrhage, or midline shift is visualized. There is generalized global volume loss. There is moderate prominence of the ventricles and the sulci . There is mild hypodensity of the periventricular white matter due to chronic small vessel ischemic disease. There are vascular calcifications of the internal carotid arteries bilaterally. No extra-axial collections are identified. The paranasal sinuses and mastoid air cells are well aerated. CERVICAL SPINE: There is no evidence of acute cervical spine fracture. Vertebral bodies remain normal in height. Cervical vertebrae have normal alignment. There is multilevel degenerative spondylosis of the cervical spine with disc height narrowing and endplate spurs and facet joint arthrosis No pre- or paravertebral soft tissue abnormality is identified. Limited assessment of the lung apices is unremarkable. CT/CT cervical spine wo IV con IMPRESSION: 1. No acute intracranial pathology. 2. No CT evidence of acute cervical spine fracture or traumatic subluxation
--- NOTE | ~2024-01-27 | XR_ITS ---
EXAMINATION: XR tibia fibula RT 2V, XR knee RT 2V INDICATION: fall, pain COMPARISON: No pertinent prior studies are currently available for comparison. TECHNIQUE: 2 views of the right knee and 2 views of the right tibia and fibula FINDINGS: No significant knee joint effusion. Diffuse osteopenia about the knee but no acute fracture or dislocation. No bony destructive lesions or periosteal reaction. No acute fracture or dislocation in the visualized tibia or fibula. Diffuse osteopenia about the ankle and visualized foot. Extensive vascular calcification present. XR/XR knee RT 2V IMPRESSION: Chronic appearing and degenerative changes but no acute fracture or dislocation seen.
[2024-01-27 19:01] VITALS: BP 107/40; PULSE 70; O2SAT 95
[2024-01-27 19:13] VITALS: BP 114/46; PULSE 57; RESP 16; TEMP 36.1; O2SAT 94; BMI 28.3
[2024-01-27 19:43] LABS: MANUAL DIFF FLAG NO
[2024-01-27 19:53] LABS: Basophils Absolute Auto 0.1 X10*3/uL (0.0-0.2); Basophils Percent Auto 1.1 % (0-2); Eosinophils Absolute Auto 0.2 X10*3/uL (0.0-0.4); Hemoglobin 9.5 g/dl (12.0-16.0); Imm Gran Abs Auto 0.02 X10*3/uL (0.00-0.03); Imm Gran Pct Auto 0.4 % (0.0-0.4); Lymphocytes Percent Auto 17.2 % (20-40); Mean Corpuscular HGB Conc 31.7 g/dl (31.0-35.0); Mean Corpuscular Hemoglobin 32.6 pg (27.0-33.0); Mean Corpuscular Volume 103.1 fL (80.0-98.0); Mean Platelet Volume 11.6 fL (9.4-12.3); Monocytes Absolute Auto 0.6 X10*3/uL (0.1-1.2); Monocytes Percent Auto 10.2 % (2-11); Neutrophils Absolute Auto 3.9 x10*3/uL (2.0-8.3); Neutrophils Percent Auto 68.1 % (45-73); Platelet Count 191 X10*3/uL (160-400); Red Blood Count 2.91 X10*6/uL (4.20-5.50); Red Cell Distribution Width 13.4 % (11.0-16.0); White Blood Count 5.7 X10*3/uL (4.8-10.8)
--- NOTE | 2024-01-27 19:56 | ED_ITS ---
HPI - Fall General Chief Complaint: Fall Stated Complaint: WEAK W/FALL, NO C/O INJURY PER EMS Time Seen by Provider: 01/27/24 18:41 Source: patient and EMS Mode of arrival: EMS Limitations: no limitations History of Present Illness ED Provider: Dr. Rachel Gillespie HPI Narrative: Patient comes to the emergency room from home. Patient states that she has been having multiple falls at home, states that she feels that her knees keeping giving out. Today, patient was walking with a walker, her knee buckled and she landed on her right side. Patient denies hitting her head or losing consciousness, patient takes Eliquis for atrial fibrillation. Patient states that she does not believe that she can return home, lives with her sister. Related Data Home Medications ?Medication ?Instructions ?Recorded ?Confirmed levothyroxine 50 mcg tablet 50 mcg PO DAILY@0600 10/11/22 12/29/23 docusate sodium 100 mg capsule 100 mg PO DAILY PRN Constipation 11/27/22 12/29/23 (Colace) acetaminophen 325 mg tablet 650 mg PO Q6H PRN Pain 12/16/22 12/29/23 (Tylenol) sucralfate 1 gram tablet 1 g PO QID 12/16/22 12/29/23 furosemide 40 mg tablet (Lasix) 40 mg PO DAILY 02/13/23 12/29/23 potassium chloride 10 mEq 10 meq PO BID 02/13/23 12/29/23 tablet,extended release cyanocobalamin (vitamin B-12) 1,000 mcg PO DAILY 03/03/23 12/29/23 1,000 mcg tablet ferrous sulfate 325 mg (65 mg 325 mg PO DAILY 03/03/23 12/29/23 iron) tablet (Iron (ferrous sulfate)) omeprazole 20 mg capsule,delayed 20 mg PO DAILY 03/03/23 12/29/23 release trazodone 50 mg tablet 50 mg PO TID PRN Anxiety 03/03/23 12/29/23 gabapentin 100 mg capsule 100 mg PO TID 08/25/23 12/29/23 metoclopramide HCl 5 mg tablet 5 mg PO QID 08/25/23 12/29/23 apixaban 5 mg tablet 5 mg PO BID 12/29/23 buspirone 5 mg tablet 5 mg PO TID 12/29/23 12/29/23 carbidopa 25 mg-levodopa 100 mg 1 tab PO BID 12/29/23 tablet oxycodone 10 mg tablet 10 mg PO TID PRN pain 12/29/23 12/29/23 sertraline 50 mg tablet 50 mg PO DAILY 12/29/23 Previous Rx's ?Medication ?Instructions ?Recorded apixaban 5 mg tablet (Eliquis) 5 mg PO BID 30 days #60 tabs 11/07/22 insulin lispro 100 unit/mL See Protocol subcut QIDACHS #10 mL 11/07/22 subcutaneous solution (Humalog U-100 Insulin) amiodarone 200 mg tablet 200 mg PO DAILY #90 tabs 03/23/23 cefuroxime axetil 250 mg tablet 250 mg PO Q12H 7 days #14 tabs 01/03/24 Allergies Allergy/AdvReac Type Severity Reaction Status Date / Time levofloxacin [From LEVAQUIN] AdvReac Mild flushed Verified 01/27/24 19:17 Review of Systems 2 Review of Systems: Constitutional : No Weight loss, No Fever, No Chills, No Night Sweats, No Fatigue, No Malaise ENT/Mouth : No Hearing loss, No Ear Pain, No Nasal Congestion, No Sinus Pain, No Hoarseness, No sore throat, No Rhinorrhea, No Swallowing Difficulty Eyes: No Eye Pain, No Swelling, No Redness, No Foreign Body, No Discharge, No Vision Changes Cardiovascular : No Chest Pain, No SOB, No Dyspnea on Exertion, No Orthopnea, No Edema, No Palpitations Respiratory : No Cough, No Sputum, No Wheezing, No Smoke Exposure, No Dyspnea Gastrointestinal : No Nausea, No Vomiting, No Diarrhea, No Constipation, No abdominal Pain, No Hematochezia, No Melena Genitourinary : no irregular bleeding, No Dysuria, No Urinary Frequency, No Hematuria, No Urinary Incontinence, No Urgency, No Flank Pain, No Urinary Flow Changes, No Hesitancy Musculoskeletal : Complaining of mild right knee pain and grier pain, complaining of bilateral leg weakness gradually getting worse, No Myalgias, No Joint Swelling Skin : No Skin Lesions, No rash Neuro : No Weakness, No Numbness, No Paresthesias, No Loss of Consciousness, No Dizziness, No Headache Psych : No Anxiety/Panic, No Depression, No SI/HI/AH/VH, No Social Issues, Heme/Lymph: No Bruising, No Bleeding,No Lymphadenopathy Endocrine : No Polyuria, No Polydipsia, No Temperature Intolerance [facility] Past Medical History Medical History GRACE (generalized anxiety disorder) MDD (major depressive disorder), recurrent episode GI bleed Anemia Congestive heart failure Depressive disorder PAF (paroxysmal atrial fibrillation) Spinal stenosis CKD (chronic kidney disease), stage IV Diastolic CHF Thyroid activity decreased HTN (hypertension) Diabetes Family History Family History Other Diabetes Social History Social History Household Members: Spouse Housing: House Do you presently have visiting nurse or other home services: Yes Alcohol intake: never Patient Tobacco Use Status: Never used Tobacco Second Hand Smoke Exposure: No Advance Directives: Yes Advance Directives on File: Yes Advance Directives Date on File: 12/16/22 Do you have a plan to hurt others: No Plan service: No Current occupational status: retired Physical Exam 2 Vital Signs: Vital Signs: Last Vital Signs Temp 97.0 F 01/27/24 19:13 Pulse 57 01/27/24 19:13 Resp 16 01/27/24 19:13 BP 114/46 L 01/27/24 19:13 Pulse Ox 91 L 01/27/24 21:50 O2 Del Method Room Air 01/27/24 19:13 BMI result Body Mass Index 28.3 Const: Other: Appearance: Alert. Oriented X3. No acute distress. Eyes: Pupils equal, round and reactive to light. ENT: Pharynx normal. Neck: Normal inspection. Neck supple. No lymph nodes noted. No crepitus CVS: Normal heart rate and rhythm. Pulses normal. Normal S1 and S2 Respiratory: No respiratory distress. Breath sounds normal. No Wheezing. No rales Abdomen: Soft and nontender. No rigidity. No distention. Skin: Skin warm and dry. Normal skin color. Normal skin turgor. Extremities: No lower extremity edema. Pain to palpation over the right knee and right upper grier Neuro: Oriented X 3. No motor deficit. No sensory deficit. Moving all extremities. No slurred speech. CN 2 through 12 grossly intact Psych: calm, cooperative, normal affect Course Course Course Narrative: All of patient's labs and imaging pending -patient feels too weak to go home, PT and case management consult pending -physician observation started at 20:00 (01/27/2024) Medical Decision Making Medical Decision Making [facility] Narrative: -my interpretation of head CT: No intracranial bleed -patient's hematology and chemistry at baseline, chronically elevated creatinine at 1.8 -urinalysis pending -our complex case manager Krystal spoke to the patient's sister. They can not take care of her at home, patient too weak on her lower extremities. Requesting placement. -patient states that her recent was scheduled for TAVR at [facility]. However, the surgery could not be completed or started. Seems that the patient's will be taken to a fpc and patient is requesting to go with him to the same fpc. -physical therapy and case management pending -physician observation started at 20:00 Differential Diagnosis Differential Diagnoses: The differential diagnosis associated with the presentation includes (Generalized weakness, deconditioning, UTI) Admission/Observation Consideration of admission/observation: Escalation of care including admission/observation considered (Patient is under physician observation waiting for PT and case management) Lab Data [facility] Lab Attestation statement: I reviewed the patient's lab results. 01/27/24 19:40 01/27/24 19:40 Labs: Lab Results 01/27/24 Range/Units 19:40 WBC 5.7 (4.8-10.8) X10*3/uL RBC 2.91 L (4.20-5.50) X10*6/uL Hgb 9.5 L (12.0-16.0) g/dl Hct 30.0 L (37.0-47.0) % MCV 103.1 H (80.0-98.0) fL MCH 32.6 (27.0-33.0) pg MCHC 31.7 (31.0-35.0) g/dl RDW 13.4 (11.0-16.0) % Plt Count 191 (160-400) X10*3/uL MPV 11.6 (9.4-12.3) fL Immature Gran % (Auto) 0.4 (0.0-0.4) % Neut % (Auto) 68.1 (45-73) % Lymph % (Auto) 17.2 L (20-40) % Throckmorton % (Auto) 10.2 (2-11) % Eos % (Auto) 3.0 (0-4) % Baso % (Auto) 1.1 (0-2) % Lymph # (Auto) 1.0 L (1.2-4.9) X10*3/uL Throckmorton # (Auto) 0.6 (0.1-1.2) X10*3/uL Eos # (Auto) 0.2 (0.0-0.4) X10*3/uL Baso # (Auto) 0.1 (0.0-0.2) X10*3/uL Abs Immat Gran (auto) 0.02 (0.00-0.03) X10*3/uL Absolute Neuts (auto) 3.9 (2.0-8.3) x10*3/uL Absolute Nucleated RBC 0.000 (0.0-0.012) X10*3/uL Nucleated RBC % (auto) 0.0 (0.0-0.2) /100WBC Sodium 140 (135-145) mmol/L Potassium 5.0 (3.3-5.1) mmol/L Chloride 106 (96-108) mmol/L Carbon Dioxide 28 (22-29) mmol/L Anion Gap 11 L (12-20) BUN 41 H (9-16) mg/dL Creatinine 1.87 H (0.5-1.4) mg/dL Estim Creat Clear Calc 21.6 Estimated GFR 26 Random Glucose 133 H (60-115) mg/dL Calcium 7.8 L (8.4-10.2) mg/dL Independent Interpretation I performed an independent interpretation of an: Plain X-Ray and CT Scan Radiology Impression Discussion of test interpretation with radiology: I have reviewed the radiologist's reading. Radiologist Impression: HEAD: No intracranial mass, hemorrhage, or midline shift is visualized. There is generalized global volume loss. There is moderate prominence of the ventricles and the sulci . There is mild hypodensity of the periventricular white matter due to chronic small vessel ischemic disease. There are vascular calcifications of the internal carotid arteries bilaterally. No extra-axial collections are identified. The paranasal sinuses and mastoid air cells are well aerated. CERVICAL SPINE: There is no evidence of acute cervical spine fracture. Vertebral bodies remain normal in height. Cervical vertebrae have normal alignment. There is multilevel degenerative spondylosis of the cervical spine with disc height narrowing and endplate spurs and facet joint arthrosis No pre- or paravertebral soft tissue abnormality is identified. Limited assessment of the lung apices is unremarkable. CT/CT cervical spine wo IV con IMPRESSION: 1. No acute intracranial pathology. 2. No CT evidence of acute cervical spine fracture or traumatic subluxation No significant knee joint effusion. Diffuse osteopenia about the knee but no acute fracture or dislocation. No bony destructive lesions or periosteal reaction. No acute fracture or dislocation in the visualized tibia or fibula. Diffuse osteopenia about the ankle and visualized foot. Extensive vascular calcification present. Critical Care Time Critical Care Time Critical Care Time: Yes Total Critical Care Time: 30 Attestation: I have personally provided critical care time. Time includes review of lab data, radiology results, discussion with consultants, and monitoring for potential decompensation. Intervention performed as documented. Discharge Plan Discharge Clinical Impression: Weakness, Fall Patient Disposition: Still a Patient Prescriptions: No Action amiodarone 200 mg tablet 200 mg PO DAILY Qty: 90 2RF metoclopramide HCl 5 mg tablet 5 mg PO QID gabapentin 100 mg capsule 100 mg PO TID carbidopa-levodopa 25-100 mg tablet 1 tab PO BID sertraline 50 mg tablet 50 mg PO DAILY buspirone 5 mg Tablet 5 mg PO TID oxycodone 10 mg tablet 10 mg PO TID PRN (Reason: pain) Rx Instructions: Partial Fill upon patient request. apixaban 5 mg Tablet 5 mg PO BID cefuroxime axetil 250 mg tablet 250 mg PO Q12H 7 Days Qty: 14 0RF Eliquis 5 mg Tablet 5 mg PO BID 30 Days Qty: 60 0RF Hold Instructions: Resume on 03/18/23. insulin lispro [Humalog U-100 Insulin] 100 unit/mL Solution See Protocol subcut QIDACHS Qty: 10 0RF Protocol: Insulin Correction Scale Less than or equal to 110 ---- Give (units): 0 111 to 150 Give (units): 0 151 to 200 Give (units): 2 201 to 250 Give (units): 4 251 to 300 Give (units): 6 301 to 350 Give (units): 8 Greater than 350 Give (units): 10 Call MD if Blood Glucose > : 350 sucralfate 1 gram tablet 1 g PO QID acetaminophen [Tylenol] 325 mg Tablet 650 mg PO Q6H PRN (Reason: Pain) potassium chloride 10 mEq tablet extended release 10 meq PO BID furosemide [Lasix] 40 mg tablet 40 mg PO DAILY cyanocobalamin (vitamin B-12) 1,000 mcg Tablet 1,000 mcg PO DAILY omeprazole 20 mg Capsule,Delayed Release(Dr/Ec) 20 mg PO DAILY levothyroxine 50 mcg tablet 50 mcg PO DAILY@0600 ferrous sulfate [Iron (ferrous sulfate)] 325 mg (65 mg iron) tablet 325 mg PO DAILY trazodone 50 mg tablet 50 mg PO TID PRN (Reason: Anxiety) docusate sodium [Colace] 100 mg capsule 100 mg PO DAILY PRN (Reason: Constipation) Print Language: Italian
[2024-01-27 20:09] LABS: Anion Gap 11 (12-20); Blood Urea Nitrogen 41 mg/dL (9-16); Calcium 7.8 mg/dL (8.4-10.2); Carbon Dioxide 28 mmol/L (22-29); Chloride 106 mmol/L (96-108); Creatinine Clr Calc Pharmacy 21.6; Estimated Glomerular Filt Rate 26; Glucose Random 133 mg/dL (60-115); Sodium 140 mmol/L (135-145)
[2024-01-27 21:50] VITALS: O2SAT 91
[2024-01-27 22:21] VITALS: BP 178/63; PULSE 65; RESP 20; TEMP 36.9; O2SAT 93
--- NOTE | 2024-01-27 22:29 | MHC.CM.ED ---
CM met with patient at the request of Dr. Gillespie. Pt is A&Ox3. Pt is very sad and teary. States she misses her of 57 years. He is at [facility]. Was supposed to have TAVR on Thursday, but it was postponed. According to sister in law, Hilda Arnold ([phone]) he may need back surgery and might have an infection. Hilda believes he needs STR, but she does not believe he has a bed yet. Patient tells CM that she is upset because her husbands TAVR was postponed and she is worried he will and she will never see him again. CM listened to patient and allow her to vent her feelings. Encouraged patient to focus on her needs now, as her is being cared for now at [facility]. Patient would like to go to the same rehab as her . CM will need to call [facility] tomorrow to see where her will be going to rehab. Pt lives with her and sister. Pt uses a walker. She has shelter and PT with [facility]. She has MOW and [facility] from [facility]. She has assistance from her sister. PCP is [facility]. HCP is on file. CM will alert [facility] via [facility] of patient being in ED. Referrals placed to acute rehab. Waiting on further referrals pending determination of where her will be going. Pt is aware that CM will try to place them together, but there is no guarantee. Pt will have PT assessment in the morning.. CM will follow for discharge planning.
[2024-01-27 22:36] LABS: Appearance Urine Cloudy; Color Urine Yellow; Glucose Urine UA Negative (Negative); Leukocyte Esterase Urine Moderate (2+) (Negative); Nitrite Urine Positive (Negative); Specific Gravity - Urine 1.015 (1.005-1.025); UMIC TRIGGER UACC YES; Urine Blood Negative (Negative); Urine Ketones Negative (Negative); Urine Protein Trace mg/dL (Neg-Trace)
[2024-01-27 22:42] LABS: Bacteria Urine 4+ (None Seen); RBC Urine 0-2 /HPF (0-2); UACC Culture Trigger YES; WBC Urine 21-50 /HPF (0-5)
[2024-01-28] VITALS (10 sets, daily range): BP systolic 140–193; BP diastolic 44–87; PULSE 60–97; RESP 15–20; TEMP 36.7–37.3; O2SAT 95–98
--- NOTE | 2024-01-28 00:22 | PC.NURSE ---
Patient is alert and oriented x3. She complains of mild pain in right knee s/p fall, 09/05 at present. Ambulation trial with pulse oximeter completed, patient requires 1 assist and a walker for ambulation, O2 Sat 91% RA with exertion. Urine specimen collected and sent to lab. Patient is calm, cooperative with care. Call panda in reach, plan of care ongoing.
[2024-01-28] MEDS: oxyCODONE HCl Immed Release 5 MG TABLET PO (01:08)
[2024-01-28] MEDS: Acetaminophen 325 MG TABLET 650 MG PO ×2 (01:08→10:38)
[2024-01-28] MEDS: Apixaban 5 MG TABLET PO ×3 (02:17→20:41)
[2024-01-28] MEDS: busPIRone HCl 5 MG TABLET PO ×4 (02:17→20:43)
[2024-01-28] MEDS: traZODone HCL 50 MG TABLET PO ×2 (02:17→18:47)
[2024-01-28] MEDS: Sucralfate 1 GM TABLET PO ×5 (02:18→20:41)
[2024-01-28] MEDS: Metoclopramide HCl 5 MG TABLET PO ×5 (02:18→20:43)
[2024-01-28] MEDS: Gabapentin 100 MG CAPSULE PO ×4 (02:18→20:43)
[2024-01-28] MEDS: Carbidopa/Levodopa 25/100 TABLET 1 TAB PO ×3 (02:18→20:42)
--- NOTE | 2024-01-28 03:18 | PC.NURSE ---
Patient's O2 Sat 89-90% on RA while patient asleep. Patient placed on supplemental O2 at 1 LPM NC with improvement noted, O2 Sat 90-94%. Dr. Basurto notified.
[2024-01-28] MEDS: cephALEXin 250 MG CAPSULE PO ×3 (05:09→20:41)
[2024-01-28] MEDS: Levothyroxine Sodium 50 MCG TABLET PO (05:09)
[2024-01-28 07:28] LABS: Glucose, Whole Blood 130 mg/dL (60-115)
[2024-01-28 08:56] LABS: IDNOW Serial# 152EDE1D
[2024-01-28 08:57] LABS: COVID-19 Test Negative (Negative)
[2024-01-28] MEDS: Furosemide 40 MG TABLET PO (09:04)
[2024-01-28] MEDS: Omeprazole 20 MG CAPSULE.DR PO (09:04)
[2024-01-28] MEDS: Potassium Chloride ER 10 MEQ TABLET.ER PO ×2 (09:05→20:43)
[2024-01-28] MEDS: Sertraline HCL 50 MG TABLET PO (09:05)
[2024-01-28] MEDS: Amiodarone HCL 200 MG TABLET PO (09:05)
[2024-01-28] MEDS: Ferrous Sulfate 324 MG TABLET.DR PO (09:05)
--- NOTE | 2024-01-28 09:12 | MHC.CM.ED ---
Patient remains in ER. Physical therapy eval completed. Short term rehab is recommended. Patient is hoping to go to the same SNF as her who is currently in [facility]. T/W spoke with [facility] shelter case manager at [facility], Bette. Patient will be returning home with services. Referral broadcasted to all facilities within 15 miles that are contracted with [facility]. [facility] choice. Continue to monitor for d/c needs.
--- NOTE | 2024-01-28 11:23 | MHC.CM.ED ---
[facility], [facility], [facility], [facility], [facility], [facility], [facility], [facility], and [facility] are able to offer a bed. Attempted to meet with patient to discuss facility options. Patient is currently sleeping. Spoke with patient's sister, Hilda, via telephone at [phone]. Hilda aware [facility] is not able to offer a bed. Other facility options discussed. Hilda feels [facility] is appropriate. Patient has been there before and it's the closest to their home. [facility] made aware and is in the process of obtaining insurance auth. Continue to monitor for d/c needs.
[2024-01-28 12:39] LABS: Glucose, Whole Blood 147 mg/dL (60-115)
--- NOTE | 2024-01-28 15:05 | MHC.CM.ED ---
[facility] has obtained insurance auth. Patient can leave tomorrow. [facility] booked tomorrow 01/28 at 9am. [facility] with chart. Patient, Riki NAYLOR and Pau CROCKETT aware. Patient's sister, Hilda, made aware via telephone at [phone]. Continue to monitor for d/c needs.
[2024-01-28 16:08] LABS: Glucose, Whole Blood 205 mg/dL (60-115)
[2024-01-28] MEDS: Insulin Lispro 100 UNIT/ML 3 ML VIAL SUBCUT (16:31)
--- NOTE | 2024-01-28 16:42 | MHC.CM.ED ---
CM met with patient to discuss plan of care. Pt weepy, constantly crying. Explained that CM spoke with CM at [facility] and her is being discharged, passed PT and will have VNA. Pt continues to cry; worried about when her will get his TAVR now,. CM explained that her was okay and that she needs to focus on increasing her strength so she can go home. Explained to her that she cannot help her if she cannot walk. Pt aware that she will go to [facility] tomorrow at 9am, because the acute rehabs have not offered her a bed. Pt is crying that her clothes will be stolen. CM stressed to patient the importance of her trying to relax, stop crying and focus on improving her strength. CM gave an update to primary RN.
--- NOTE | 2024-01-28 17:24 | PHA.MEDREC ---
Addendum entered by Jeff Kilpatrick [facility] 01/28/24 19:05: MED REC DOUBLE CHECKED BY [facility] Original Note: Pharmacy Consult ? Medication Reconciliation Pharmacy has completed the medication reconciliation. Went down to speak with patient about her Eliquis. Patient gave me a list from her bag of what medications shes taking and she explained she is currently taking Eliquis 5mg and she states she is getting it from Dr. Raymundo when she gets seen by him.
[2024-01-28 20:22] LABS: Glucose, Whole Blood 145 mg/dL (60-115)
--- NOTE | 2024-01-28 21:23 | PC.NURSE ---
Patient medicated per AUG. Pericare provided, barrier cream applied to coccyx, inner buttocks for protection. Call placed within patient's reach, plan of care ongoing.
[2024-01-29 04:00] VITALS: BP 186/69; PULSE 62; RESP 20; TEMP 37.4; O2SAT 98
[2024-01-29] MEDS: Levothyroxine Sodium 50 MCG TABLET PO (05:43)
[2024-01-29] MEDS: cephALEXin 250 MG CAPSULE PO (05:43)
[2024-01-29 07:25] LABS: Glucose, Whole Blood 131 mg/dL (60-115)
--- NOTE | 2024-01-29 07:48 | MHC.EDTECH ---
pt was assisted with oral hygiene.
[2024-01-29] MEDS: Sucralfate 1 GM TABLET PO (07:56)
[2024-01-29 08:22] VITALS: BP 159/59; PULSE 67; RESP 15; TEMP 37.3; O2SAT 94
[2024-01-29 08:31] VITALS: BP 159/59
[2024-01-29] MEDS: Furosemide 40 MG TABLET PO (08:31)
[2024-01-29] MEDS: Ferrous Sulfate 324 MG TABLET.DR PO (08:31)
[2024-01-29] MEDS: Metoclopramide HCl 5 MG TABLET PO (08:31)
[2024-01-29] MEDS: Gabapentin 100 MG CAPSULE PO (08:32)
[2024-01-29] MEDS: busPIRone HCl 5 MG TABLET PO (08:32)
[2024-01-29] MEDS: Sertraline HCL 50 MG TABLET PO (08:32)
[2024-01-29] MEDS: Carbidopa/Levodopa 25/100 TABLET 1 TAB PO (08:32)
[2024-01-29] MEDS: Apixaban 5 MG TABLET PO (08:32)
[2024-01-29] MEDS: Potassium Chloride ER 10 MEQ TABLET.ER PO (08:33)
[2024-01-29] MEDS: Omeprazole 20 MG CAPSULE.DR PO (08:33)
--- NOTE | 2024-01-29 08:36 | PC.NURSE ---
Per Arleen DICKINSON, pt. going to [facility] via [facility]
--- NOTE | 2024-01-29 09:37 | PC.NURSE ---
[facility] here to transport pt.
--- NOTE | 2024-01-29 09:42 | MHC.EDTECH ---
pt was washed up with complete bed change and was assisted to the commode and had 1 void and a small bowel movement
[2024-01-29 10:43] VITALS: BP 159/59; PULSE 67; RESP 15; TEMP 37.3; O2SAT 94
== END 2024-01-29 10:46 ==
PROVIDERS: Physician Assistant; Emergency Provider Emergency Medicine
DX: S09.8XXA Other specified injuries of head, initial encounter (principal); S09.90XA Unspecified injury of head, initial encounter; S89.91XA Unspecified injury of right lower leg, initial encounter; I48.91 Unspecified atrial fibrillation; I10 Essential (primary) hypertension; E11.9 Type 2 diabetes mellitus without complications; R26.2 Difficulty in walking, not elsewhere classified; R53.83 Other fatigue; M54.2 Cervicalgia; R51.9 Headache, unspecified; W01.10XA Fall on same level from slipping, tripping and stumbling with subsequent striking against unspecified object, initial encounter; Y93.89 Activity, other specified; Y92.098 Other place in other non-institutional residence as the place of occurrence of the external cause; Y99.8 Other external cause status; Z79.01 Long term (current) use of anticoagulants; Z11.52 Encounter for screening for COVID-19; Z79.899 Other long term (current) drug therapy; Z79.4 Long term (current) use of insulin
CPT/HCPCS: 36415; 70450; 72125; 73560; 73590; 80048; 81001; 82947; 85025; 87086; 87088; 87186; 87635; 97162; 99284; 99285

== ENCOUNTER 2024-02-25 19:43 | Emergency (ER) | payer MEDICARE, SELFPAY ==
--- NOTE | 2024-02-25 | ECG_ITS ---
Test Reason : syncope Blood Pressure : / mmHG Vent. Rate : 066 BPM Atrial Rate : 066 BPM P-R Int : 206 ms QRS Dur : 138 ms QT Int : 458 ms P-R-T Axes : 064 008 095 degrees QTc Int : 480 ms Normal sinus rhythm Left bundle branch block Abnormal ECG When compared with ECG of 29-DEC-2023 12:33, No significant change was found Referred By: Generic ED Physician Electronically Signed By:JIN NUNEZ
--- NOTE | ~2024-02-25 | CT_ITS ---
EXAMINATION: CT ABDOMEN AND PELVIS WITHOUT CONTRAST CLINICAL INFORMATION: abd pain. COMPARISON: 12/29/2023. TECHNIQUE: Multidetector volumetric imaging was performed from the superior aspect of the liver through the pubic symphysis without contrast per request. Sagittal and coronal reformatted images were obtained on the technologist workstation. This CT examination was performed using dose optimization techniques as appropriate, variously including the following: *Automated exposure control *Adjustment of mA and/or kV according to patient size (this includes techniques or standardized protocols for targeted exams where dose is matched to indication/reason for exam; i.e. extremities or head) *Use of iterative reconstruction technique DLP: 740 mGy-cm. FINDINGS: LUNG BASES: The visualized lung bases are unremarkable. LIVER, GALLBLADDER, BILIARY TREE: The non-contrast liver is normal in size, shape, and attenuation. No focal hepatic lesion or biliary ductal dilatation is present. The gallbladder is presumably surgically absent. PANCREAS: Unremarkable. SPLEEN: Unremarkable. ADRENAL GLANDS: Mild fullness to the left adrenal gland unchanged in the prior study. Contralateral right adrenal gland unremarkable. KIDNEYS AND URETERS: Subtle 2.2 cm hyperdense region in the anterior midpole of the right kidney not able to be defined further on this noncontrast study the also grossly appears similar to recent prior examination. No obvious abnormality was seen in this location on the 08/28/2020 MRI. Otherwise the kidneys are normal in size, shape, and attenuation. No hydronephrosis, hydroureter, or perinephric stranding. No calculi. BLADDER: Unremarkable GASTROINTESTINAL TRACT: Extensive diverticulosis within the redundant colon. I do not appreciate any obvious colonic wall thickening or pericolonic inflammatory change. /Small bowel are unremarkable. Appendix not visualized and may be surgically absent. ABDOMINAL WALL: No significant hernia is appreciated. LYMPHOVASCULAR STRUCTURES: Extensive vascular calcification within the aortoiliac system.. PELVIC VISCERA: Unremarkable. OSSEUS STRUCTURES: Multilevel degenerative changes in the spine. Degenerative changes in the hips CT/CT abdomen pelvis wo IV con IMPRESSION: Chronic appearing changes similar to the prior study. There is extensive diverticulosis but no obvious diverticulitis. 2 cm hyperdense abnormality seen in the anterior right kidney of uncertain significance and unable to define further on this noncontrast study. Further evaluation with renal ultrasound or dynamic renal MRI may be helpful to evaluate this finding further further Electronically signed by: Jack Scott MD 02/25/2024 10:38 PM EDT RP
--- NOTE | ~2024-02-25 | XR_ITS ---
EXAMINATION: XR CHEST CLINICAL INFORMATION: Shortness of breath. Concern for pneumonia COMPARISON: March 03, 2023. TECHNIQUE: Frontal view of the chest was obtained. FINDINGS: The cardiomediastinal silhouette is stable. There is no focal consolidation or pleural effusion. Bony structures and soft tissues are unremarkable. XR/XR chest 1V IMPRESSION: No acute cardiopulmonary disease. Electronically signed by: Santino Zavaleta MD 02/26/2024 04:58 AM EDT
[2024-02-25 19:54] VITALS: BP 90/50; PULSE 62; O2SAT 97
[2024-02-25 20:00] VITALS: BP 110/30; PULSE 60; RESP 16; TEMP 36.6; O2SAT 94; BMI 29.7
[2024-02-25 21:00] VITALS: BP 117/30; PULSE 62; RESP 16; TEMP 36.3; O2SAT 95
[2024-02-25 21:14] LABS: Hematocrit 32.3 % (37.0-47.0); Hemoglobin 10.1 g/dl (12.0-16.0); Mean Corpuscular HGB Conc 31.3 g/dl (31.0-35.0); Mean Corpuscular Hemoglobin 31.4 pg (27.0-33.0); Mean Corpuscular Volume 100.3 fL (80.0-98.0); Mean Platelet Volume 11.2 fL (9.4-12.3); Platelet Count 201 X10*3/uL (160-400); Red Blood Count 3.22 X10*6/uL (4.20-5.50); Red Cell Distribution Width 13.5 % (11.0-16.0); White Blood Count 9.9 X10*3/uL (4.8-10.8)
[2024-02-25 21:37] LABS: Alanine Aminotransferase 5 U/L (0-31); Albumin Level 3.1 g/dL (3.5-5.0); Alkaline Phosphatase 130 U/L (39-117); Anion Gap 11 (12-20); Aspartate Amino Transferase 11 U/L (5-31); Bilirubin Direct < 0.2 mg/dL (0.0-0.5); Bilirubin Total 0.2 mg/dL (0.0-1.0); Blood Urea Nitrogen 52 mg/dL (9-16); Calcium 8.2 mg/dL (8.4-10.2); Carbon Dioxide 27 mmol/L (22-29); Chloride 107 mmol/L (96-108); Creatinine Clr Calc Pharmacy 21.3; Estimated Glomerular Filt Rate 25; Glucose Random 179 mg/dL (60-115); Lipase 17 U/L (8-78); Sodium 140 mmol/L (135-145); Total Protein 5.7 g/dL (6.5-8.0)
[2024-02-25 21:59] LABS: Band Neutrophils Percent 8 % (3-5); Eosinophils Absolute Manual 0.1 X10*3/uL (0.0-0.4); Eosinophils Percent Manual 1 % (0-4); Lymphocytes Absolute Manual 0.2 X10*3/uL (1.2-4.9); Lymphocytes Percent Manual 2 % (20-40); Neutrophils Absolute Manual 9.6 X10*3/uL (2.0-8.3); Neutrophils Percent Manual 89 % (45-73)
[2024-02-25 22:00] LABS: RBC Morphology NOTED; Schistocytes 1+ (0-2) /OIF
[2024-02-25 22:01] LABS: Platelet Estimate NORMAL (NORMAL); Platelet Morphology Comment NORMAL
[2024-02-25 22:32] LABS: Lactic Acid 0.8 mmol/L (0.5-2.0)
[2024-02-25 22:52] LABS: Troponin-I High Sensitivity 10.6 ng/L (<3.5-17.0)
[2024-02-25 23:00] VITALS: BP 127/46; PULSE 61; RESP 18; TEMP 36.6; O2SAT 91
--- NOTE | 2024-02-25 23:44 | PC.NURSE ---
Report received from Temitope NAYLOR, assume care of pt at this time
[2024-02-26 00:32] VITALS: BP 122/43; PULSE 61; RESP 16; O2SAT 93
--- NOTE | 2024-02-26 01:39 | ED.GENADULT ---
HPI - General Adult General Chief complaint: Weakness Stated complaint: SYNCOPAL EPISODE Time Seen by Provider: 02/25/24 21:39 Source: patient History of Present Illness ED Provider: Catrachito JIMENEZ narrative: 78-year-old female hx of HTN, HFpEF, afib on eliquis, CKD, DM presenting for abd pain, diarrhea and syncope. Patient states that she had an episode of diarrhea earlier in the day and shortly after she began experiencing abdominal pain and that she had a syncopal episode. She was already lying in bed when she syncopized so there was no fall or head strike. She is not sure how long she was out for but just recalls being found by her sister who subsequently called 911. Patient had 1 episode of nonbloody nonbilious emesis in transport with EMS. Patient is now complaining of diffuse weakness and is still experiencing diffuse nonlocalized abdominal pain. Related Data Home Medications ?Medication ?Instructions ?Recorded ?Confirmed levothyroxine 50 mcg tablet 50 mcg PO DAILY@0600 10/11/22 01/28/24 docusate sodium 100 mg capsule 100 mg PO DAILY PRN Constipation 11/27/22 01/28/24 (Colace) sucralfate 1 gram tablet 1 g PO QID 12/16/22 01/28/24 furosemide 40 mg tablet (Lasix) 40 mg PO DAILY 02/13/23 01/28/24 potassium chloride 10 mEq 10 meq PO BID 02/13/23 01/28/24 tablet,extended release cyanocobalamin (vitamin B-12) 1,000 mcg PO DAILY 03/03/23 01/28/24 1,000 mcg tablet ferrous sulfate 325 mg (65 mg 325 mg PO DAILY 03/03/23 01/28/24 iron) tablet (Iron (ferrous sulfate)) omeprazole 20 mg capsule,delayed 20 mg PO DAILY 03/03/23 01/28/24 release trazodone 50 mg tablet 50 mg PO TID PRN Anxiety 03/03/23 01/28/24 gabapentin 100 mg capsule 100 mg PO TID 08/25/23 01/28/24 metoclopramide HCl 5 mg tablet 5 mg PO QID 08/25/23 01/28/24 apixaban 5 mg tablet 5 mg PO BID 12/29/23 01/28/24 buspirone 5 mg tablet 5 mg PO TID 12/29/23 01/28/24 carbidopa 25 mg-levodopa 100 mg 1 tab PO BID 12/29/23 01/28/24 tablet oxycodone 10 mg tablet 10 mg PO TID PRN pain 12/29/23 01/28/24 sertraline 50 mg tablet 50 mg PO DAILY 12/29/23 01/28/24 Previous Rx's ?Medication ?Instructions ?Recorded insulin lispro 100 unit/mL See Protocol subcut QIDACHS #10 mL 11/07/22 subcutaneous solution (Humalog U-100 Insulin) amiodarone 200 mg tablet 200 mg PO DAILY #90 tabs 03/23/23 cefuroxime axetil 250 mg tablet 250 mg PO BID 7 days #14 tabs 02/01/24 Allergies Allergy/AdvReac Type Severity Reaction Status Date / Time levofloxacin [From LEVAQUIN] AdvReac Mild flushed Verified 02/25/24 20:08 Review of Systems Review of Systems: Patient endorses abdominal pain, diarrhea, weakness She denies chest pain, head pain, shortness of breath, fevers, chills [facility] Past Medical History Attestation statement: The following information was validated with the patient. [facility] Narrative: Hypertension, heart failure with preserved ejection fraction, AFib, CKD, diabetes Source: old records reviewed Medical History GRACE (generalized anxiety disorder) MDD (major depressive disorder), recurrent episode GI bleed Anemia Congestive heart failure Depressive disorder PAF (paroxysmal atrial fibrillation) Spinal stenosis CKD (chronic kidney disease), stage IV Diastolic CHF Thyroid activity decreased HTN (hypertension) Diabetes Family History Family History Other Diabetes Social History Social History Household Members: Spouse Housing: House Do you presently have visiting nurse or other home services: Yes Alcohol intake: never Patient Tobacco Use Status: Never used Tobacco Smoked in Last 30 Days: No Second Hand Smoke Exposure: No Use of substances other than those prescribed or required for medical reasons: No Advance Directives: Yes Advance Directives on File: Yes Advance Directives Date on File: 12/16/22 Do you have a plan to hurt others: No Plan service: No Current occupational status: retired Physical Exam ED Vital Signs: Vital Signs - 24 hr 02/25/24 20:00 02/25/24 21:00 02/25/24 23:00 Temperature 97.9 F 97.3 F 97.8 F Pulse Rate 60 62 61 Respiratory Rate 16 16 18 Blood Pressure 110/30 L 117/30 L 127/46 L Pulse Oximetry 94 95 91 L Oxygen Delivery Method Room Air Room Air Room Air 02/26/24 00:32 Temperature Pulse Rate 61 Respiratory Rate 16 Blood Pressure 122/43 L Pulse Oximetry 93 Oxygen Delivery Method Room Air BMI result Body Mass Index 29.7 Anterior lung salgado clear to auscultation, normal S1-S2 regular rate and rhythm, abdomen is soft nondistended with mild diffuse tenderness to palpation, bilateral lower extremity edema appreciated, head normocephalic atraumatic Medical Decision Making Medical Decision Making [facility] Narrative: This is a 78-year-old female sent in for diarrhea, abdominal pain syncope. She has history of C diff however I do not suspect that she currently has C diff as she only had 1 episode of diarrhea. I am concerned for the following; syncope, cardiac arrhythmia, underlying infection/UTI, electrolyte/metabolic disturbance, COVID, flu, biliary disease, gastroenteritis Less likely ACS/PE given HPI and consistent with these diagnoses however should the patient's clinical status deteriorates or her workup become concerning for these diagnoses I will reconsider Patient should be admitted due to concerns of syncope with weakness Spoke with hospitalist who accepted the patient for admission. I notified him that UA is pending Differential Diagnosis Differential Diagnoses: The differential diagnosis associated with the presentation includes syncope, cardiac arrhythmia, underlying infection/UTI, electrolyte/metabolic disturbance, COVID, flu, biliary disease, gastroenteritis Consult Healthcare Provider Management of the patient was discussed with: Hospitalist Dr. Hauser Lab Data [facility] Lab Attestation statement: I reviewed the patient's lab results. Stable H&H, baseline creatinine, elevated alk-phos 02/25/24 21:05 02/25/24 21:05 Labs: Lab Results 02/25/24 02/25/24 Range/Units 21:05 22:10 WBC 9.9 (4.8-10.8) X10*3/uL RBC 3.22 L (4.20-5.50) X10*6/uL Hgb 10.1 L (12.0-16.0) g/dl Hct 32.3 L (37.0-47.0) % MCV 100.3 H (80.0-98.0) fL MCH 31.4 (27.0-33.0) pg MCHC 31.3 (31.0-35.0) g/dl RDW 13.5 (11.0-16.0) % Plt Count 201 (160-400) X10*3/uL MPV 11.2 (9.4-12.3) fL Immature Gran % (Auto) Cancelled Neut % (Auto) Cancelled Lymph % (Auto) Cancelled [place] % (Auto) Cancelled Eos % (Auto) Cancelled Baso % (Auto) Cancelled Lymph # (Auto) Cancelled [place] # (Auto) Cancelled Eos # (Auto) Cancelled Baso # (Auto) Cancelled Abs Immat Gran (auto) Cancelled Absolute Neuts (auto) Cancelled Absolute Nucleated RBC 0.000 (0.0-0.012) X10*3/uL Nucleated RBC % (auto) 0.0 (0.0-0.2) /100WBC Neutrophils % (Manual) 89 H (45-73) % Band Neutrophils % 8 H (3-5) % Lymphocytes % (Manual) 2 L (20-40) % Eosinophils % (Manual) 1 (0-4) % Abs Neuts (Manual) 9.6 H (2.0-8.3) X10*3/uL Lymphocytes # (Manual) 0.2 L (1.2-4.9) X10*3/uL Eosinophils # (Manual) 0.1 (0.0-0.4) X10*3/uL Platelet Estimate NORMAL (NORMAL) Plt Morphology Comment NORMAL RBC Morphology NOTED Schistocytes 1+ (0-2) /OIF Sodium 140 (135-145) mmol/L Potassium 5.0 (3.3-5.1) mmol/L Serum Potassium 5.0 (3.3-5.1) mmol/L Chloride 107 (96-108) mmol/L Carbon Dioxide 27 (22-29) mmol/L Anion Gap 11 L (12-20) BUN 52 H (9-16) mg/dL Creatinine 1.95 H (0.5-1.4) mg/dL Estim Creat Clear Calc 21.3 Estimated GFR 25 Random Glucose 179 H (60-115) mg/dL Lactic Acid 0.8 (0.5-2.0) mmol/L Calcium 8.2 L (8.4-10.2) mg/dL Total Bilirubin 0.2 (0.0-1.0) mg/dL Direct Bilirubin < 0.2 (0.0-0.5) mg/dL AST 11 (5-31) U/L ALT 5 (0-31) U/L Alkaline Phosphatase 130 H (39-117) U/L Troponin I High Sens 10.6 (<3.5-17.0) ng/L Total Protein 5.7 L (6.5-8.0) g/dL Albumin 3.1 L (3.5-5.0) g/dL Lipase 17 (8-78) U/L Discharge Plan Discharge Clinical Impression: Weakness, Syncope Patient Disposition: Admitted As Inpatient Print Language: Welsh
[2024-02-26 02:05] LABS: Appearance Urine Clear; Color Urine Yellow; Glucose Urine UA Negative (Negative); Leukocyte Esterase Urine Trace (Negative); Nitrite Urine Negative (Negative); UMIC TRIGGER UACC YES; Urine Blood Negative (Negative); Urine Ketones Negative (Negative); Urine Protein 30 (1+) mg/dL (Neg-Trace)
--- NOTE | 2024-02-26 02:07 | PC.NURSE ---
pt was straight cath, using technical operations specialist, pt had 250 cc clear dark yellow urine, samples sent to lab. Pt tolerated well
[2024-02-26 02:16] LABS: Magnesium 1.8 mg/dL (1.6-2.6)
[2024-02-26 02:23] LABS: B Type Natriuretic Peptide 156 pg/mL (<100)
[2024-02-26 02:33] LABS: Troponin-I High Sensitivity 10.9 ng/L (<3.5-17.0)
[2024-02-26 02:39] LABS: Influenza A PCR NEGATIVE (Negative); Influenza B PCR NEGATIVE (Negative); Resp Syncy Virus RNA Qual PCR NEGATIVE (Negative); SARS COV2 PCR INHOUSE NEGATIVE (Negative)
[2024-02-26 02:43] VITALS: BP 117/39; PULSE 57; RESP 13; TEMP 36.6; O2SAT 94
[2024-02-26 03:16] LABS: Bacteria Urine 3+ (None Seen); Hyaline Casts Urine 0-2 /LPF (0-2); RBC Urine 0-2 /HPF (0-2); Squamous Epithelial Cell Urine 0-2 /HPF (0-2); WBC Urine 0-5 /HPF (0-5)
[2024-02-26 03:17] LABS: UACC Culture Trigger YES
--- NOTE | 2024-02-26 03:30 | PM.EVENT ---
Event Note Date of Service: 02/26/24 Event Note: Was asked to evaluate the patient for possible admission for syncope. Patient states she had 1 episode of loose stool and while she was at the toilet seat, she passed out. Did not hit her head. No dizziness or lightheadedness prior to the syncopal episode. Was nauseous. No chest pain or palpitations. No rhythmic jerking movement of extremities. Syncope is situational syncope (type of reflex syncope) in the setting of defecation. Denies abdominal pain. Is complaining of acid reflux symptoms. Will give IV Protonix and increase her home PPI dosage. No indication for admission. Imaging and labs reviewed. No fever or leukocytosis (bands <10%). Conveyed to ER provider. Patient is agreeable. Asked to come back to the ER in case of new or worsening complaints. Time Spent With Patient Time: Total time managing care of this patient today ____ minutes.
[2024-02-26] MEDS: Pantoprazole Sodium 40 MG/10 ML VIAL IVPUSH (03:52)
--- NOTE | 2024-02-26 05:32 | PC.NURSE ---
called pt's sister for ride home, she will be here around 6am
[2024-02-26 05:40] VITALS: BP 147/41; PULSE 57; RESP 12; TEMP 36.4; O2SAT 96
[2024-02-26 06:07] VITALS: BP 147/41; PULSE 57; RESP 12; TEMP 36.4; O2SAT 96
== END 2024-02-26 06:08 | disposition home or self-care (01) ==
PROVIDERS: Emergency Provider Student in an Organized Health Care Education/Training Program
DX: R55 Syncope and collapse (principal); R53.1 Weakness; R06.02 Shortness of breath; I44.7 Left bundle-branch block, unspecified; R10.9 Unspecified abdominal pain; R94.31 Abnormal electrocardiogram [ECG] [EKG]; Z03.818 Encounter for observation for suspected exposure to other biological agents ruled out; Z79.899 Other long term (current) drug therapy
CPT/HCPCS: 0241U; 36415; 71045; 74176; 80048; 80076; 81001; 83605; 83690; 83735; 83880; 84132; 84484; 85007; 85027; 92950; 93005; 99284; 99285; J2470

== ENCOUNTER 2024-09-30 13:23 | Outpatient (REF) | payer MEDICARE, SELFPAY ==
[2024-09-30 15:24] LABS: Hematocrit 34.6 % (37.0-47.0); Hemoglobin 10.8 g/dl (12.0-16.0); Mean Corpuscular HGB Conc 31.2 g/dl (31.0-35.0); Mean Corpuscular Hemoglobin 30.4 pg (27.0-33.0); Mean Corpuscular Volume 97.5 fL (80.0-98.0); Mean Platelet Volume 11.3 fL (9.4-12.3); Platelet Count 198 X10*3/uL (160-400); Red Blood Count 3.55 X10*6/uL (4.20-5.50); Red Cell Distribution Width 12.6 % (11.0-16.0); White Blood Count 4.3 X10*3/uL (4.8-10.8)
[2024-09-30 15:44] LABS: Anion Gap 13 (12-20); Blood Urea Nitrogen 44 mg/dL (9-16); Calcium 8.3 mg/dL (8.4-10.2); Carbon Dioxide 30 mmol/L (22-29); Chloride 101 mmol/L (96-108); Estimated Glomerular Filt Rate 31; Glucose Random 121 mg/dL (60-115); Potassium 4.2 mmol/L (3.3-5.1); Sodium 140 mmol/L (135-145)
--- OUTSIDE RECORDS SUMMARY | 2024-09-30 16:04 | XMS_ITS | Clinical Summary ---
Author Organization [facility] Address [address] [place] [address] Phone Care Team Providers Care Tour Leader Name Role Phone Berlin Raymundo MD Primary Care Provider [phone] Allergies Active Allergy Reactions Criticality Noted Date [...] 2.30(A) 0.50 - 1.10 mg/dL eGFR Non-Afr Fijian 22 Hemoglobin A1C 7.5(A) 4.0 - 6.0 Microalbumin Urine Random (External Result Entry) 24.5 Microalb/Creat Ratio, Ur 31.5 06/11/2022 Historical Provider LAB BLOOD ORDERABLES Kristen l Result from Last 3 Months or Most Recently Relevant to Health Maintenance Insurance [facility] Care Teams Tour Leader Relationship Specialty Start Date End Date Berlin Raymundo MD [address] [place] [address] PCP - General 07/09/20
== END 2024-09-30 13:24 | disposition home or self-care (01) ==
LOC: HO.LAB 13:23
PROVIDERS: PCP Internal Medicine
DX: I48.0 Paroxysmal atrial fibrillation (principal); I50.32 Chronic diastolic (congestive) heart failure; I27.20 Pulmonary hypertension, unspecified
CPT/HCPCS: 36415; 80048; 85027; 93005; 99212

== ENCOUNTER 2024-09-30 13:23 | Outpatient (AMB) | payer MEDICARE, SELFPAY ==
--- NOTE | 2024-09-30 13:27 | MHC.OFFVIS ---
Vital Signs 09/30/24 13:31 Height 5 ft Weight 132 lb 11.492 oz BMI 25.9 BP 130/56 L Blood Pressure Location Rt brachial Position Sitting Pulse 74 Pulse Source Monitor Intake Visit Reasons: overdue for fu (hs) (NOmore refills) Intake Note: overdue f/up-med refills Roll Tension Tester Required: No Accompanied by: Self / Same As Patient Allergies levofloxacin [From LEVAQUIN] Adverse Reaction (Mild, Verified 02/25/24 20:08) flushed Medication List - Last Reconciled 09/30/24 by Osbaldo Arora NP amiodarone 200 mg PO DAILY apixaban 5 mg PO BID buspirone 5 mg PO TID carbidopa-levodopa 25-100 mg 1 tab PO BID cyanocobalamin (vitamin B-12) 1,000 mcg PO DAILY docusate sodium (Colace) 100 mg PO DAILY PRN ferrous sulfate (Iron (ferrous sulfate)) 325 mg PO DAILY furosemide (Lasix) 40 mg PO DAILY gabapentin 100 mg PO TID insulin lispro (Humalog U-100 Insulin) See Protocol units subcut QIDACHS levothyroxine 50 mcg PO DAILY@0600 metoclopramide HCl 5 mg PO QID omeprazole 20 mg PO DAILY omeprazole 20 mg PO DAILY oxycodone 10 mg PO TID PRN potassium chloride ER 10 mEq PO BID sertraline 50 mg PO DAILY sucralfate 1 g PO QID trazodone 50 mg PO TID PRN HPI Comments Details: This is a 79-year-old female patient presenting for an overdue follow-up visit. Patient with a history of diastolic heart failure, pulmonary hypertension, hypertension, paroxysmal AFib, and diabetes. Patient reports feeling well overall with no current cardiac symptoms including exertional shortness of breath, chest pain, palpitations, dizziness, orthopnea, PND, leg edema, presyncope, or syncope. However, patient frail looking and does mention that she gets fatigued easily and using a walker to get around, leading to sedentary lifestyle. The patient states that she has been compliant with her medications until about a month ago when she could not get her amiodarone and was asked to come in for an office visit before resuming it. She also stopped taking her Eliquis due to the cause. There seems to be some noncompliance with her medication regimen and is not fully aware of what she is taking currently. The patient has a home health aide who comes to help her for an hour during the day, but manages the rest of her care independently. [facility] Medical History GRACE (generalized anxiety disorder) MDD (major depressive disorder), recurrent episode GI bleed Anemia Congestive heart failure Depressive disorder PAF (paroxysmal atrial fibrillation) Spinal stenosis CKD (chronic kidney disease), stage IV Diastolic CHF Thyroid activity decreased HTN (hypertension) Diabetes Family History Other Diabetes Social History Household Members: Spouse Housing: House Do you presently have visiting nurse or other home services: Yes Alcohol intake: never Patient Tobacco Use Status: Never used Tobacco Second Hand Smoke Exposure: No Advance Directives Date on File: 12/16/22 service: No Current occupational status: retired Review of Systems Const Denies chills, Denies fatigue, Denies fever(s), Denies frequent falls, Denies weakness, Denies weight gain and Denies weight loss ENT Denies dizziness Card Denies chest pain, Denies leg edema, Denies lightheadedness, Denies palpitations, Denies dyspnea and Denies dyspnea on exertion Resp Denies cough, Denies dyspnea and Denies dyspnea on exertion GI Denies hematochezia Musc Denies abnormal gait, Denies muscle weakness, Denies numbness, Denies radiating pain into limb and Denies tingling Neuro Denies abnormal gait, Denies dizziness, Denies frequent falls, Denies numbness, Denies tingling and Denies weakness Endo Denies fatigue and Denies palpitations Physical Exam Vital Signs: Last Vital Signs Pulse 74 09/30/24 13:31 BP 130/56 L 09/30/24 13:31 BMI result Body Mass Index 25.9 Const General: cooperative, healthy appearing, comfortable and no acute distress Orientation/consciousness: patient oriented x3 HEENT Head: Yes normal to inspection Neck Neck: Yes normal visual inspection, Yes trachea midline and Yes supple Chest Chest palpation & inspection: normal inspection of the chest Resp Effort & Inspection: normal respiratory effort Auscultation: clear to auscultation bilaterally, no crackles, no rales, no rhonchi and no wheezes Cardio Jugular venous distension: no JVD Palpation: normal PMI Rate: regular rate Rhythm: regular rhythm Heart sounds: S1 normal heart sound present, S2 normal heart sound present, no click, no gallops, no murmurs and no rubs Peripheral pulses: Peripheral pulses 2+ throughout GI Inspection: Yes normal to inspection Palpation (GI): Soft to palpation Auscultation: normal bowel sounds Skin General skin exam: no rashes or lesions noted Neuro General: patient oriented x3 Extrem General: Yes normal to inspection, No no pedal edema and No calf tenderness Psych Appearance: grossly normal Mental Status: mental status grossly normal Speech and movement: Normal speech and movement present Office Procedures EKG Details: EKG today shows normal sinus rhythm, rate 74 beats per minute, rightward axis, left bundle branch block with LVH, with T-wave inversion inferiorly and anterolaterally, normal [place], [place]. [id number], Complete Assessment & Plan Assessment & Plan (1) Chronic heart failure with preserved ejection fraction (HFpEF): Code(s): I50.32 - Chronic diastolic (congestive) heart failure Category: Medical Plan: 10/20/2022-echo study showed normal EF between 60-65%, moderately increased LV wall thickness, elevated filling pressures, mildly increased RV cavity size, mildly dilated left atrium and right atrium, mild aortic valve stenosis, [id number] mitral valve regurgitation, moderate tricuspid regurgitation, severe pulmonary hypertension and significantly elevated right atrial pressure. Clinically euvolemic today. Continue Lasix therapy. We will repeat echo. Further treatment based on findings. (2) PAF (paroxysmal atrial fibrillation): Code(s): I48.0 - Paroxysmal atrial fibrillation Category: Medical Plan: Patient has been off Eliquis for over a month. Reiterated the high risk for stroke and provided her with a 30 day coupon to help with the medication cause for now. We will attempt to work with insurance for a prior authorization for Eliquis in the meantime. If the cost continues to be an issue, we may need to consider switching to warfarin which is cheaper, though noncompliant complicated decision making at this time. We will repeat labs to monitor her condition. Patient denies any falls or signs of bleeding. Given her noncompliance, we will discontinue amiodarone therapy and switch her to a beta neva for rate control approach. Today's EKGs showed a normal sinus rhythm. If she experiences prolonged episodes of palpitations and atrial fibrillation, we may need to consider antiarrhythmic therapy in the future. For the T-wave inversions, we will hold currently on ischemic workup due to patient's frailty. Reviewed this with Dr. Barber. (3) Pulmonary hypertension: Code(s): I27.20 - Pulmonary hypertension, unspecified Category: Medical Plan: As above. We will follow up in a month. In the interim, advised patient to call the office in case of any concerns or change in symptoms. This note was generated using voice recognition software. While every effort has been made to ensure accuracy and proper raker buffing wheel, there may be occasional errors that could affect the content or meaning of the described symptoms. Orders: Orders Basic Metabolic Panel Today Osbaldo Arora NP I48.0 - Paroxysmal atrial fibrillation Complete Blood Count no Diff Today Osbaldo Arora NP I48.0 - Paroxysmal atrial fibrillation AMB EKG-In Office Today Osbaldo Arora NP I48.0 - Paroxysmal atrial fibrillation CA echo transthoracic complete Today Osbaldo Arora NP I48.0 - Paroxysmal atrial fibrillation Medications: New metoprolol succinate ER 25 mg PO DAILY 90 tabs 3RF Osbaldo Arora NP apixaban 5 mg PO BID 60 tabs 5RF Osbaldo Arora NP Changed From omeprazole 40 mg PO DAILY 30 caps 0RF To omeprazole 20 mg PO DAILY Rachel Gillespie MD Discontinued amiodarone Discontinued Reason: Doctor's Order 200 mg PO DAILY 30 tabs 5RF Coding Level of Care Code Est Pt Level 4 (64033) Complex EM visit Add On G2211 Diagnoses Chronic heart failure with preserved ejection fraction (HFpEF) I50.32 PAF (paroxysmal atrial fibrillation) I48.0 Pulmonary hypertension I27.20 CPT Codes EKG - CPT: 10527-[id number], Complete ([id number]) Time Spent (min) 38 Comment Time spent in reviewing the chart, test results, assessment, counseling and documentation.
[2024-09-30 13:31] VITALS: BP 130/56; PULSE 74; BMI 25.9
--- OUTSIDE RECORDS SUMMARY | 2024-09-30 15:15 | XMS_ITS | Patient Health Record ---
Author Organization [facility] Address [address] [place] [id number] Care Team Providers Care Clinic Specialist Name Role Phone Berlin Raymundo MD Primary Care Provider Unavaila Carlo Liu Unavailable [phone] PATRICIA RANGEL Unavailable Unavailable Reason For Referral No Information Medications Medication SIG (Take, Route, Frequency, Duration) Notes Start Date End Date Status Metoprolol Succinate ER 25 MG Oral for 30 Active Glimepiride 4 MG Oral for 30 A ctive Omeprazole 20 MG TAKE 1 CAPSULE BY [facility] TWICE DAILY IN THE MORNING BEFORE BREAKFAST & IN THE EVENING BEFORE DINNER for 30 Active Levothyroxine Sodium 50 MCG Oral for 30 Active amLODIPine Besylate 10 MG Oral for 90 Active Melatonin 300 MCG 2 tablet at bedtime as needed with food Orally Once a day Active Acidophilus Plus Pectin Active Acetaminophen 500 MG 1 capsule as needed Orally every 6 hrs Active Anti-Diarrheal 2 MG 1 tablet as needed Orally Four times a day Active Metamucil 28.3 % as directed Orally Active Gabapentin 400 MG Oral for 30 Active oxyCODONE-Acetaminophen 5-325 MG (Schedule II Drug) Oral for 28 Active Artificial Tear Acti ve Pioglitazone HCl 30 MG Oral for 30 Active Immunizations Vaccine Route Administration Date Status Comme nts Influenza Unknown 12/23/2018 Refused Social History Tobacco Use: Social History Observation Description Date Details (start date - stop date) Never Smoker NA - NA Tobacco Use/Smoking Question Answer Notes Patient is a nonsmoker Alcohol Screen Question Answer Notes Did you have a drink containing alcohol in the p ast year? No Points 0 Interpretation Negative Section Notes: Nonsmoker; no sig alcohol Nonsmoker; no sig alcohol Problems Problem Type SNOMED Code ICD Code Onset Dates Problem Status W/U Status Risk Notes Problem Epigastric pain (17687778) Epigastric abdominal pain (R10.13) Active confirmed Problem Cholangiectasis (454288680) Dilated bile duct (K83.8) Active confirmed Problem Screening for malignant neoplasm of colon (994464178) Encounter for screening for malignant neoplasm of colon (Z12.11) Active confirmed Problem Constipation (60853659) Constipation (K59.00) Active confirmed Problem 046172519 Gastroesophageal reflux disease, esophagitis presence not specified (K21.9) Active confirmed Problem 37829387 Pharyngoesophage al dysphagia (R13.14) Active confirmed Problem 945051947 Irregular bowel habits (R19.8) Active confirmed Problem 10714827 Diarrhea, unspecified type (R19.7) Active confirmed Problem Anemia due to blood loss (567697771) Anemia due to blood loss (D50.0) Active confirmed Plan Of Treatment Pending Test Test Name Order Date MRI ABD NO CONTRAST (MRCP) 08/23/2020 Future Test Test Name Order Date UPPER GI ENDOSCOPY 12/23/2018 COLONOSCOPY 12/23/2018 UPPER GI ENDOSCOPY 09/18/2020 COLONOSCOPY 09/18/2020 Insurance Providers Payer Name Payer Address Payer Phone Subscriber Number Group Number Insured Name Patient Relationship to Insured Coverage Start Date Coverage End Date [facility] [address] [place] [phone] [id number] ALEX ALMEIDA Self - patient is the insured Medical (General) History Medical History History ICD Code NIDDM Hypertension Sleep apnea--not using a CPAP Kidney stones Colonoscopy [address] Chacon [id number] from colon and TI were normal EGD in 2012-gastritis, no Hpylori--kamaljit l duodenal biopsies Denies CA,CVA,Lung disease Renal insufficiency Neuropathy GERD Hypothyroidism Unsteady gait CBD stone removed by ERCP in 11/[address] Kingston Negative MRCP in 07/2020 Surgical History Surgery Date(Month/Year) Lower back 2016 Cholecystectomy 1970 Tubal ligation 1975
--- OUTSIDE RECORDS SUMMARY | 2024-09-30 15:15 | XMS_ITS | Clinical Summary ---
Author Organization [facility] Address [address] [place] [address] Phone Care Team Providers Care Forepart Rasper Name Role Phone Berlin Raymundo MD Primary Care Provider [phone] Allergies Active Allergy Reactions Criticality Noted Date Comments Adhesive Tape 06/25/2022 Other reaction(s): tape-rash Levofloxacin Other (see comments) 06/25/2022 Medications amLODIPine (NORVASC) 5 MG tablet Take 10 mg by mouth 1 (one) time each day 12/19/2015 Active gabapentin (NEURONTIN) 400 MG capsule Take 1 capsule by mouth in the morning and 1 capsule in the evening and 1 capsule before bedtime. 05/29/2016 Active glimepiride (AMARYL) 4 MG tablet Take 1 tablet by mouth 1 (one) time each day 03/20/2015 Active levothyroxine (SYNTHROID, LEVOTHROID) 50 MCG tablet Take 1 tablet by mouth 1 (one) time each day 12/31/2021 Active linaGLIPtin 5 MG tablet Take 1 tablet by mouth 1 (one) time each day 11/02/2015 Active melatonin 3 MG tablet Take 2 tablets by mouth every night Active metoprolol succinate XL (TOPROL XL) 25 MG 24 hr tablet Take 1 tablet by mouth 1 (one) time each day 12/31/2021 Active omeprazole (PriLOSEC) [address] capsule Take 1 capsule by mouth 1 (one) time each day 01/01/2022 Active oxyCODONE-aceta minophen (PERCOCET) 5-325 MG per tablet Take 1 tablet by mouth in the morning and 1 tablet in the evening. Active pioglitazone (ACTOS) 30 MG tablet Take 1 tablet by mouth 1 (one) time each day 12/31/2021 Active torsemide (DEMADEX) 20 MG tablet TAKE 2 TABLET (40MG DOSE) BY MOUTH TWICE DAILY 120 tablet 5 10/06/2022 Active Active Problems Problem Noted Date Diagnosed Date Proteinuria 06/25/2022 Renal disorder due to type 2 diabetes mellitus 1 08/26/2021 Chronic kidney disease stage 4 06/25/2022 Chronic kidney disease stage 3 01/27/2022 Hypertensive disorder 01/27/2022 Hypertensive renal disease 01/27/2022 Resolved Problems Problem Noted Date Diagnosed Date Resolved Date Hypothyroidism 06/25/2022 06/25/2022 Spinal stenosis of lumbar region 06/25/2022 06/25/2022 Cholangiectasis 01/27/2022 06/25/2022 Chronic low back pain 01/27/20222021 Diarrhea 01/27/2022 06/25/2022 Diabetes mellitus 01/27/2022 06/25/2022 Dysphagia 01/27/2022 06/25/2022 Epigastric pain 01/27/2022 06/25/2022 Gastroesophageal reflux disease 01/27/2022 06/25/2022 Family History Medical History Relation Comments Diabetes Father Heart disease Father [place] Diabetes Mother grandmother Diabetes Sibling sister Relation Status Comments Father Mother Sibling Social History Tobacco Use Types Packs/Day Years Used Date Smoking Tobacco: Never Smokeless Tobacco: Never Tobacco Cessation:Counseling Given: Not Answered Alcohol Use Standard Drinks/Week Comments No 0 (1 standard drink = 0.6 oz pur e alcohol) Comments Unknown Sex and Gender Information Value Date Recorded Sex Assigned at Not on file Legal Sex Female 5:03 PM EST Gender Identity Not on file Sexual Orientation Not on file Last Filed Vital Signs Vital Sign Reading Time Taken Comments Blood Pressure 134/56 06/25/2022 2:32 PM EST Pulse 56 06/25/2022 2:32 PM EST Temperature - - Respiratory Rate - - Oxygen Saturation 94% 06/25/2022 2:32 PM EST Inhaled Oxygen Concentration - - Weight 91.4 kg (201 lb 9.6 oz) 06/25/2022 2:32 P M EST Height 152.4 cm (5') 06/25/2022 2:32 PM EST Body Mass Index 39.37 06/25/2022 2:32 PM EST Plan of Treatment Health Maintenance Due Date Last Done Comments Pneumococcal Vaccine: 65+ Ye ars (1 of 2 - PCV) 1951 Diabetes: Ophthalmology Exam 07/29/2020 Diabetes: Pedal Pulse Checked 07/29/2020 Diabetes: Sensory Foot Exam 07/29/2020 Diabetes: Visual Foot Exam 07/29/2020 Diabetes: Hemoglobin A1C 09/09/2022 06/11/2022 Influenza Vaccine (#1) 2024 Hepatitis B Vaccine Aged Out No longe r eligible based on patient's age to complete this topic Procedures Procedure Name Priority Date/Time Associated Diagnosis Comments EXT RESULT ENTRY Routine 06/11/2022 from Last 3 Months or Most Recently Relevant to Health Maintenance Results * (ABNORMAL) EXT RESULT ENTRY (06/11/2022) Sodium 143 137 - 147 Potassium 4.4 3.4 - 5.5 Chloride 100.0 99.0 - 108.0 Carbon Dioxide 30 mmol/L Anion Gap 13 <=30 MMOL/L BUN 29(A) 4 - 21 mg/dL Creatinine 2.30(A) 0.50 - 1.10 mg/dL eGFR Non-Afr Bermudian 22 Hemoglobin A1C 7.5(A) 4.0 - 6.0 Microalbumin Urine Random (External Result Entry) 24.5 Microalb/Creat Ratio, Ur 31.5 06/11/2022 Historical Provider LAB BLOOD ORDERABLES Kristen l Result from Last 3 Months or Most Recently Relevant to Health Maintenance Insurance [facility] Care Teams Forepart Rasper Relationship Specialty Start Date End Date Berlin Raymundo MD [address] [place] [address] PCP - General 07/09/20
== END 2024-09-30 14:17 | disposition home or self-care (01) ==
LOC: HO.HCS 13:24
DX: I50.32 Chronic diastolic (congestive) heart failure (principal); I48.0 Paroxysmal atrial fibrillation; I27.20 Pulmonary hypertension, unspecified
CPT/HCPCS: 93010; 99214; G2211

== ENCOUNTER → 2024-11-03 10:54 | Outpatient (REF) | payer MEDICARE, SELFPAY ==
--- NOTE | 2024-11-03 10:59 | CA_ITS ---
Transthoracic Echocardiogram Patient (Last, First, Middle): Hannah Alexis, Gender: Female Date of : 1945 Age: 79 Procedure Date: 11/03/2024 Procedure Type: Transthoracic Echocardiogram Location: OP Height: 152.4 cm Weight: 59.88 kg BSA: 1.56 m2 Heart Rate: bpm BP: 130 / 56 mmHg Water Systems Engineer: CURTIS Referring MD: Osbaldo Arora NP Symptoms: I48.0 - Paroxysmal atrial fibrillation Study Quality: Adequate ECG Rhythm: Sinus Conclusions: - The left ventricular systolic function is normal. The calculated ejection fraction is 63% by biplane method. - Evidence suggests grade II (moderate) diastolic dysfunction. - The left atrium is moderately dilated. - There is moderate mitral annular calcification. Findings Left Ventricle Normal left ventricular cavity size. The left ventricular systolic function is normal. The calculated ejection fraction is 63% by biplane method. There is no evidence of regional wall motion abnormalities. Evidence suggests grade II (moderate) diastolic dysfunction. Focal basal septal hypertrophy. Right Ventricle Normal right ventricular cavity size and systolic function. Atria The left atrium is moderately dilated. The right atrium is normal in size. Aortic Valve There is a normal trileaflet aortic valve. There is no aortic valve stenosis. There is trace (trivial) aortic valve regurgitation. Mitral Valve There is moderate mitral annular calcification. There is mild mitral valve regurgitation. There is no mitral valve stenosis. Pulmonic Valve The pulmonic valve is likely normal. Tricuspid Valve There is mild tricuspid valve regurgitation. There is no evidence of pulmonary hypertension. Great Vessels The asc aorta is normal in size. Small plaque is seen in the sino tubular ridge. Venous The inferior vena cava is normal in size and collapses greater than 50% with inspiration. Pericardium/Pleural There is no evidence of pericardial effusion. Prior Study Comparison Changes noted compared to prior study dated: 10/20/2022. Improved pulmonary hypertension. Measurements 2D Linear Measurements IVSd: 0.76 0.6-0.9/0.6-1.0 cm LVIDd: 4.83 3.9-5.3/4.2-5.9 cm LVIDd Index: 3.10 2.4-3.2/2.2-3.1 cm/m2 LVIDs: 3.37 2.0-3.6 cm LVPWd: 0.87 0.7-1.1 cm LA Diam: 4.00 2.7-3.8/3.0-4.0 cm LAIDs Index: 2.56 1.5-2.3 cm/m2 LV Mass: 162.66 67-162/88-224 g LV Mass Index: 104.27 43-95/49-115 g/m2 LVOT Diam: 1.80 3.0+(-)1.3 cm 2D Systolic Function EF 4C: 55.40 >55% EF 2C: 67.90 >55% EF BiP: 62.80 >55% Mitral Valve MV Pk E: 1.19 MV PK A: 1.20 MV Decel Time: 195.00 E/A: 1.00 E'Lateral: 4.13 E'Medial: 3.48 E/E' Med: 34.20 E/E' Lat: 28.80 PHT: 57.00 MVA PHT: 3.[address] [place]: 6.08 Aortic Valve AoV Pk Gordon: 1.85 AoV Mn Gordon: 1.31 AoV VTI: 0.51 AoV Pk Grad: 14.00 Aov Mn Grad: 8.00 [place] Cont.VTI: 1.43 LVOT LVOT Pk Gordon: 1.02 LVOT Mn Gordon: 0.74 LVOT VTI: 0.29 LVOT Pk Grad: 4.00 LVOT Mn Grad: 2.00 LVOT Diam: 1.80 LVOT Area: 2.54 Diastolic Function MV Pk E: 1.19 MV Pk A: 1.20 E/A: 1.00 E'Medial: 3.48 E/E' Med: 34.20 E' Laterial: 4.13 E/E' Lat: 28.80 Right Ventricle TAPSE (mm): 23.20 TVS' Gordon: 11.20 Tricuspid Valve TR Pk Gordon: 2.45 TR Pk Grad: 24.00 RA Press: 3.00 RVSP: 27.00 Great Vessels Aorta Sinus of Valsalva: 3.16 2.0-3.5 cm Ao Asc: 3.20 2.1-3.4 cm Updated in Other Vendor System with Status of Final Jeremie Barber MD electronically signed on 11/05/2024 10:25:26 AM with status of Final
--- OUTSIDE RECORDS SUMMARY | 2024-11-03 12:28 | XMS_ITS | Clinical Summary ---
Author Organization [facility] Address [address] [place] [address] Phone Care Team Providers Care Almond Paste Molder Name Role Phone Berlin Raymundo MD Primary Care Provider [phone] Allergies Active Allergy Reactions Criticality Noted Date [...] Relation Comments Diabetes Father Heart disease Father [place] Diabetes Mother grandmother Diabetes Sibling sister Relation [...] Due Date Last Done Comments Pneumococcal Vaccine: 50+ Ye ars (1 of 2 - PCV) 1964 Diabetes: Ophthalmology Exam 07/29/2020 Diabetes: Pedal Pulse Checked 07/29/2020 Diabetes: Sensory Foot Exam 07/29/2020 Diabetes: Visual Foot Exam 07/29/2020 Diabetes: Hemoglobin A1C 09/09/2022 06/11/2022 Influenza Vaccine (Season Ended) 2025 Hepatitis B Vaccine Aged Out No longe [...] 2.30(A) 0.50 - 1.10 mg/dL eGFR Non-Afr Mexican 22 Hemoglobin A1C 7.5(A) 4.0 - 6.0 Microalbumin Urine Random (External Result Entry) 24.5 Microalb/Creat Ratio, Ur 31.5 06/11/2022 Historical Provider LAB BLOOD ORDERABLES Kristen l Result from Last 3 Months or Most Recently Relevant to Health Maintenance Insurance [facility] Care Teams Almond Paste Molder Relationship Specialty Start Date End Date Berlin Raymundo MD [address] [place] [address] PCP - General 07/09/20
== END ==
LOC: HO.CARD 10:54
PROVIDERS: PCP Internal Medicine
DX: I48.0 Paroxysmal atrial fibrillation (principal)
CPT/HCPCS: 93306

== ENCOUNTER → 2024-11-03 10:59 | Outpatient (BNV) | payer MEDICARE, SELFPAY | PROVIDERS: PCP Internal Medicine; Visit Provider Internal Medicine | DX: I42.2 Other hypertrophic cardiomyopathy (principal); I42.8 Other cardiomyopathies; I34.0 Nonrheumatic mitral (valve) insufficiency; I51.7 Cardiomegaly | CPT/HCPCS: 93306 ==

== ENCOUNTER 2024-11-12 19:33 | Inpatient (IN) | payer MEDICARE, SELFPAY ==
[2024-11-12] VITALS (10 sets, daily range): BP systolic 110–172; BP diastolic 37–68; PULSE 56–77; RESP 11–16; TEMP 36.7–36.9; O2SAT 92–99; BMI 26.6
--- NOTE | ~2024-11-12 | CT_ITS ---
CLINICAL HISTORY: fall CT head without contrast Comparison: 01/27/2024 Findings: No intra-axial mass, midline shift, hydrocephalus, or acute hemorrhage. There is atrophy. There are nonspecific bilateral supratentorial white matter hypodensities most suggestive of chronic small-vessel ischemic changes. Atherosclerotic vascular disease. Minimal bilateral basal ganglia calcifications. The visualized paranasal sinuses and mastoid air cells are clear. The orbits are unremarkable. There is no acute skull fracture. IMPRESSION: 1. No acute intracranial findings. This document has been electronically signed by: Loly Gillespie MD on 11/12/2024 22:42:33
--- NOTE | ~2024-11-12 | CT_ITS ---
CLINICAL HISTORY: fall CT cervical spine without contrast Comparison: CT/SR - CT CERVICAL SPINE WO IV CON - 01/27/24 19:50 EDT Findings: There is straightening of the lordosis and mild grade 1 anterolisthesis at C3-4. Otherwise alignment is maintained. Vertebral body height is maintained. No acute fracture in the cervical spine. Craniocervical junction is intact. Degenerative disc disease and spondylotic changes especially at C4-5 and C5-6 levels with uncovertebral hypertrophy and mild foraminal stenosis. Prevertebral soft tissues within normal limits. No cervical fluid collections or masses. Atherosclerotic vascular disease in the neck bilaterally. No consolidation or effusion at the lung apices. Left apical calcified nodule likely a granuloma. IMPRESSION: 1. No acute findings in the cervical spine. 2. Stable nonacute findings as described. This document has been electronically signed by: Loly Gillespie MD on 11/12/2024 22:20:22
--- NOTE | 2024-11-12 19:43 | ECG_ITS ---
Test Reason : WEAKNESS Blood Pressure : */* mmHG Vent. Rate : 77 BPM Atrial Rate : * BPM P-R Int : * ms QRS Dur : 132 ms QT Int : 442 ms P-R-T Axes : * -2 151 degrees QTcB Int : 500 ms Normal sinus rhythm with frequent Premature atrial complexes Left bundle branch block Abnormal ECG When compared with ECG of 25-Feb-2024 20:18, Premature atrial complexes are now Present Referred By: Generic ED Physician Electronically Signed By: COLUMBA ASIF MD
[2024-11-12 20:06] LABS: MANUAL DIFF FLAG NO
[2024-11-12 20:13] LABS: INTERNATIONAL NORM RATIO 1.4 (0.9-1.1); Prothrombin Time 15.6 SEC (10.9-12.4)
[2024-11-12 20:18] LABS: Glucose, Whole Blood 292 mg/dL (60-115)
[2024-11-12 20:21] LABS: Basophils Percent Auto 0.9 % (0-2); Eosinophils Percent Auto 1.2 % (0-4); Imm Gran Abs Auto 0.02 X10*3/uL (0.00-0.03); Imm Gran Pct Auto 0.6 % (0.0-0.4); Lymphocytes Absolute Auto 0.5 X10*3/uL (1.2-4.9); Lymphocytes Percent Auto 15.6 % (20-40); Mean Corpuscular HGB Conc 29.8 g/dl (31.0-35.0); Mean Corpuscular Hemoglobin 27.5 pg (27.0-33.0); Mean Corpuscular Volume 92.3 fL (80.0-98.0); Mean Platelet Volume 10.5 fL (9.4-12.3); Monocytes Absolute Auto 0.5 X10*3/uL (0.1-1.2); Monocytes Percent Auto 15.3 % (2-11); Neutrophils Absolute Auto 2.3 x10*3/uL (2.0-8.3); Neutrophils Percent Auto 66.4 % (45-73); Platelet Count 282 X10*3/uL (160-400); Red Blood Count 2.07 X10*6/uL (4.20-5.50); Red Cell Distribution Width 13.8 % (11.0-16.0); White Blood Count 3.4 X10*3/uL (4.8-10.8)
[2024-11-12 20:25] LABS: Anion Gap 16 (12-20); Blood Urea Nitrogen 47 mg/dL (9-16); Calcium 7.6 mg/dL (8.4-10.2); Carbon Dioxide 25 mmol/L (22-29); Chloride 102 mmol/L (96-108); Cholesterol 136 mg/dL (<200); Creatinine Clr Calc Pharmacy 25.6; Estimated Glomerular Filt Rate 33; Glucose Random 293 mg/dL (60-115); HDL Cholesterol 41 mg/dL (>40); LDL Cholesterol Calculated 61 mg/dL (<100); Potassium 4.5 mmol/L (3.3-5.1); Sodium 138 mmol/L (135-145); Triglycerides 171 mg/dL (<150)
[2024-11-12 20:30] LABS: Hematocrit 19.1 % (37.0-47.0); Hemoglobin 5.7 g/dl (12.0-16.0)
--- NOTE | 2024-11-12 20:30 | ED.GENADULT ---
HPI - General Adult General Chief complaint: Weakness Stated complaint: fall, general weakness, hypotension, dizzy Time Seen by Provider: 11/12/24 20:30 History of Present Illness ED Provider: Sb JIMENEZ narrative: The patient is a 79-year-old woman with a history of paroxysmal atrial fibrillation on apixaban. Today she had a fall in her kitchen at home. She was in her kitchen planning to sit on a kitchen chair when her legs felt wobbly and she fell to the floor. She did not hit her head. She had no loss of consciousness. She does not have a headache or any neck pain. She seemed very weak. An ambulance was called and she was brought to the hospital. The patient says that she has had dark brown stools. She denies having had any black stools. She says she has had dark brown stools for a long time. No chest pain or shortness of breath. Related Data Home Medications ?Medication ?Instructions ?Recorded ?Confirmed levothyroxine 50 mcg tablet 50 mcg PO DAILY@0600 10/11/22 09/30/24 docusate sodium 100 mg capsule 100 mg PO DAILY PRN Constipation 11/27/22 09/30/24 (Colace) sucralfate 1 gram tablet 1 g PO QID 12/16/22 09/30/24 furosemide 40 mg tablet (Lasix) 40 mg PO DAILY 02/13/23 09/30/24 potassium chloride 10 mEq 10 meq PO BID 02/13/23 09/30/24 tablet,extended release cyanocobalamin (vitamin B-12) 1,000 mcg PO DAILY 03/03/23 09/30/24 1,000 mcg tablet ferrous sulfate 325 mg (65 mg 325 mg PO DAILY 03/03/23 09/30/24 iron) tablet (Iron (ferrous sulfate)) trazodone 50 mg tablet 50 mg PO TID PRN Anxiety 03/03/23 09/30/24 gabapentin 100 mg capsule 100 mg PO TID 08/25/23 09/30/24 metoclopramide HCl 5 mg tablet 5 mg PO QID 08/25/23 09/30/24 buspirone 5 mg tablet 5 mg PO TID 12/29/23 09/30/24 carbidopa 25 mg-levodopa 100 mg 1 tab PO BID 12/29/23 09/30/24 tablet oxycodone 10 mg tablet 10 mg PO TID PRN pain 12/29/23 09/30/24 sertraline 50 mg tablet 50 mg PO DAILY 12/29/23 09/30/24 omeprazole 40 mg capsule,delayed 20 mg PO DAILY 09/30/24 09/30/24 release Previous Rx's ?Medication ?Instructions ?Recorded insulin lispro 100 unit/mL See Protocol subcut QIDACHS #10 mL 11/07/22 subcutaneous solution (Humalog U-100 Insulin) apixaban 5 mg tablet 5 mg PO BID #60 tabs 09/30/24 metoprolol succinate 25 mg 25 mg PO DAILY #90 tabs 09/30/24 tablet,extended release 24 hr Allergies Allergy/AdvReac Type Severity Reaction Status Date / Time levofloxacin [From [facility]] AdvReac Mild flushed Verified 11/12/24 19:41 Review of Systems Review of Systems: Yes all other systems are reviewed and are negative PMFSH Past Medical History Medical History GRACE (generalized anxiety disorder) MDD (major depressive disorder), recurrent episode GI bleed Anemia Congestive heart failure Depressive disorder PAF (paroxysmal atrial fibrillation) Spinal stenosis CKD (chronic kidney disease), stage IV Diastolic CHF Thyroid activity decreased HTN (hypertension) Diabetes Family History Family History Other Diabetes Social History Social History Household Members: Spouse Housing: House Do you presently have visiting nurse or other home services: Yes Unable to assess alcohol history related to: Unable to respond Alcohol intake: never Patient Tobacco Use Status: Never used Tobacco Smoked in Last 30 Days: No Second Hand Smoke Exposure: No Use of substances other than those prescribed or required for medical reasons: No Advance Directives: Yes Advance Directives on File: Yes Advance Directives Date on File: 12/16/22 service: No Current occupational status: retired Physical Exam ED Vital Signs: Vital Signs - 24 hr 11/12/24 19:40 11/12/24 19:47 11/12/24 20:27 Temperature 98.1 F 98.1 F Pulse Rate 77 77 56 Respiratory Rate 16 16 14 Blood Pressure 116/47 L 116/47 L 126/37 L Pulse Oximetry 96 96 92 Oxygen Delivery Method Room Air Room Air Room Air 11/12/24 21:24 11/12/24 22:44 11/12/24 22:48 Temperature 98.2 F 98.2 F Pulse Rate 64 60 59 Respiratory Rate 11 L 16 13 Blood Pressure 139/42 L 131/41 L 131/41 L Pulse Oximetry 94 94 Oxygen Delivery Method Room Air Room Air BMI result Body Mass Index 26.6 Const Other: The patient is a very pale looking, frail 79-year-old who was awake and alert with a normal mental status. She looks weak but not acutely toxic. HENMT Other: Face is symmetrical, mucous membranes moist Eyes General: appearance normal, both eyes and all related structures Neck Other: No posterior midline C-spine tenderness. No pain with range of motion of the neck. The C-spine is clinically clear. No JVD. Resp Effort & Inspection: normal respiratory effort Auscultation: clear to auscultation bilaterally Cardio Other: The patient has an irregular rate and rhythm. I do not appreciate any murmur. GI Other: Abdomen is soft and nontender Stool is dark brown and Hemoccult positive. The stool is not melenic. Skin Other: Skin is pale and dry Neuro Other: The patient is awake and alert with a normal mental status. Cranial nerves are grossly intact. She moves her extremities symmetrically and appropriately. Extrem Other: No peripheral edema. Medications Administered Discontinued Medications Generic Name Dose Route Start Last Admin Trade Name Freq PRN Reason Stop Dose Admin Pantoprazole Sodium 80 mg 11/12/24 21:01 11/12/24 21:25 Pantoprazole Sodium 40 Mg/10 Ml Vial IVPUSH 11/12/24 21:02 80 mg ONCE ONE Administration Medical Decision Making Medical Decision Making [facility] Narrative: The patient is a 79-year-old female who was on apixaban because of paroxysmal atrial fibrillation. She presents after fall at home today when her legs felt very weak. There was no loss of consciousness. On arrival here she is very anemic with a hemoglobin of 5.7. This is a significant drop from a hemoglobin that was checked on September 30, 6 weeks ago, when it was 10.8. Her stool is dark brown (non melenic) but distinctly heme-positive. I suspect she has been having slow GI blood losses. The patient consented for blood transfusion. She has been hemodynamically stable. She was given IV pantoprazole. We have started blood transfusions in the emergency room and will admit the patient to the hospitalist service. Lab Data 11/12/24 19:58 11/12/24 19:58 Labs: Lab Results 11/12/24 11/12/24 11/12/24 Range/Units 19:58 20:16 20:45 WBC 3.4 L (4.8-10.8) X10*3/uL RBC 2.07 L D (4.20-5.50) X10*6/uL Hgb 5.7 L* D (12.0-16.0) g/dl Hct 19.1 L* D (37.0-47.0) % MCV 92.3 (80.0-98.0) fL MCH 27.5 (27.0-33.0) pg MCHC 29.8 L (31.0-35.0) g/dl RDW 13.8 (11.0-16.0) % Plt Count 282 D (160-400) X10*3/uL MPV 10.5 (9.4-12.3) fL Immature Gran % (Auto) 0.6 H (0.0-0.4) % Neut % (Auto) 66.4 (45-73) % Lymph % (Auto) 15.6 L (20-40) % [place] % (Auto) 15.3 H (2-11) % Eos % (Auto) 1.2 (0-4) % Baso % (Auto) 0.9 (0-2) % Lymph # (Auto) 0.5 L (1.2-4.9) X10*3/uL [place] # (Auto) 0.5 (0.1-1.2) X10*3/uL Eos # (Auto) 0.0 (0.0-0.4) X10*3/uL Baso # (Auto) 0.0 (0.0-0.2) X10*3/uL Abs Immat Gran (auto) 0.02 (0.00-0.03) X10*3/uL Absolute Neuts (auto) 2.3 (2.0-8.3) x10*3/uL Absolute Nucleated RBC 0.000 (0.0-0.012) X10*3/uL Nucleated RBC % (auto) 0.0 (0.0-0.2) /100WBC PT 15.6 H (10.9-12.4) SEC INR 1.4 H (0.9-1.1) APTT 40.0 H (26.0-36.8) SEC Sodium 138 (135-145) mmol/L Potassium 4.5 (3.3-5.1) mmol/L Chloride 102 (96-108) mmol/L Carbon Dioxide 25 (22-29) mmol/L Anion Gap 16 (12-20) BUN 47 H (9-16) mg/dL Creatinine 1.51 H (0.5-1.4) mg/dL Estim Creat Clear Calc 25.6 Estimated GFR 33 POC Glucose 292 H (60-115) mg/dL Random Glucose 293 H (60-115) mg/dL Calcium 7.6 L D (8.4-10.2) mg/dL Troponin I High Sens 10.0 (<3.5-17.0) ng/L Triglycerides 171 H (<150) mg/dL Cholesterol 136 (<200) mg/dL LDL Cholesterol, Calc 61 (<100) mg/dL HDL Cholesterol 41 (>40) mg/dL Stool Occult Blood POSITIVE (NEGATIVE) Blood Type Antibody Screen Crossmatch 11/12/24 Range/Units 20:54 WBC (4.8-10.8) X10*3/uL RBC (4.20-5.50) X10*6/uL Hgb (12.0-16.0) g/dl Hct (37.0-47.0) % MCV (80.0-98.0) fL MCH (27.0-33.0) pg MCHC (31.0-35.0) g/dl RDW (11.0-16.0) % Plt Count (160-400) X10*3/uL MPV (9.4-12.3) fL Immature Gran % (Auto) (0.0-0.4) % Neut % (Auto) (45-73) % Lymph % (Auto) (20-40) % [place] % (Auto) (2-11) % Eos % (Auto) (0-4) % Baso % (Auto) (0-2) % Lymph # (Auto) (1.2-4.9) X10*3/uL [place] # (Auto) (0.1-1.2) X10*3/uL Eos # (Auto) (0.0-0.4) X10*3/uL Baso # (Auto) (0.0-0.2) X10*3/uL Abs Immat Gran (auto) (0.00-0.03) X10*3/uL Absolute Neuts (auto) (2.0-8.3) x10*3/uL Absolute Nucleated RBC (0.0-0.012) X10*3/uL Nucleated RBC % (auto) (0.0-0.2) /100WBC PT (10.9-12.4) SEC INR (0.9-1.1) APTT (26.0-36.8) SEC Sodium (135-145) mmol/L Potassium (3.3-5.1) mmol/L Chloride (96-108) mmol/L Carbon Dioxide (22-29) mmol/L Anion Gap (12-20) BUN (9-16) mg/dL Creatinine (0.5-1.4) mg/dL Estim Creat Clear Calc Estimated GFR POC Glucose (60-115) mg/dL Random Glucose (60-115) mg/dL Calcium (8.4-10.2) mg/dL Troponin I High Sens (<3.5-17.0) ng/L Triglycerides (<150) mg/dL Cholesterol (<200) mg/dL LDL Cholesterol, Calc (<100) mg/dL HDL Cholesterol (>40) mg/dL Stool Occult Blood (NEGATIVE) Blood Type O Positive Antibody Screen NEGATIVE Crossmatch See Detail Independent Interpretation I performed an independent interpretation of an: EKG Interpretation: EKG at 19:56 shows atrial fibrillation with a ventricular response rate of 77 beats per minute. There is a left bundle branch block. Left bundle branch block is old. Critical Care Time Critical Care Time Critical Care Time: Yes Total Critical Care Time: 35 Attestation: The patient was critically ill with a high probability of imminent or life-threatening deterioration. ?I spent greater than 30 minutes of discontinuous time evaluating the patient, delivering critical care at the bedside, discussing evaluating data with consultants. ?Critical care time does not include time spent performing separately billable procedures or teaching. ?Time spent performing critical care with 35 minutes. Discharge Plan Discharge Clinical Impression: GI bleed, Severe anemia Patient Disposition: Admitted As Inpatient Print Language: [place] Islander
[2024-11-12 20:48] LABS: OBS Int Ctl Valid YES
[2024-11-12 20:50] LABS: OBS1 POSITIVE (NEGATIVE)
[2024-11-12] MEDS: Pantoprazole Sodium 40 MG/10 ML VIAL 80 MG IVPUSH (21:25)
--- NOTE | 2024-11-12 22:28 | P.HPHOSP_ITS ---
History of Present Illness Date of Service: 11/12/24 Chief Complaint: Weakness This is a 79-year-old female with pertinent history of congestive heart failure with preserved ejection fraction, paroxysmal atrial fibrillation on Eliquis, CKD stage 4, insulin-dependent type 2 diabetes mellitus, spinal stenosis, mood disorder, pulmonary hypertension, hypothyroidism who presents to the emergency department for evaluation of weakness. Patient states she has been feeling weak for the last few days. Endorses easy fatigability. Patient states while she was coming back from her kitchen, she felt weak and lowered herself to the floor. Patient did not hit her head or pass out. Denies light-headedness but may have had dizziness. No chest pain or palpitations. Patient states she noticed dark brown stools but has not noticed black stools or blood in stools. No nausea or vomiting. No hematuria. Denies fever, chills, abdominal pain, changes in urinary habits In the emergency department, hemoglobin found to be 5.7 and 2 unit PRBC ordered. Stool occult blood positive in the ER Review of Systems 2 Constitutional: Constitutional: Reports fatigue, Reports lethargy, Reports malaise and Reports weakness Cardiovascular: Cardiovascular: Reports no additional cardiovascular complaints Respiratory: Respiratory: Reports no additional respiratory complaints Genitourinary: Genitourinary: Reports no additional female genitourinary complaints Neurologic: Reports weakness Endocrine: Endocrine: Reports fatigue [facility] Medical History GRACE (generalized anxiety disorder) MDD (major depressive disorder), recurrent episode GI bleed Anemia Congestive heart failure Depressive disorder PAF (paroxysmal atrial fibrillation) Spinal stenosis CKD (chronic kidney disease), stage IV Diastolic CHF Thyroid activity decreased HTN (hypertension) Diabetes Family History Other Diabetes Social History Household Members: Spouse Housing: House Do you presently have visiting nurse or other home services: Yes Unable to assess alcohol history related to: Unable to respond Alcohol intake: never Patient Tobacco Use Status: Never used Tobacco Smoked in Last 30 Days: No Second Hand Smoke Exposure: No Use of substances other than those prescribed or required for medical reasons: No Advance Directives: Yes Advance Directives on File: Yes Advance Directives Date on File: 12/16/22 service: No Current occupational status: retired Meds Allergies Allergy/AdvReac Type Severity Reaction Status Date / Time levofloxacin [From [facility]] AdvReac Mild flushed Verified 11/12/24 19:41 Home Medications ?Medication ?Instructions ?Recorded ?Confirmed ?Last Taken ?Type levothyroxine 50 mcg tablet 50 mcg PO DAILY@0600 10/11/22 09/30/24 01/27/24 History docusate sodium 100 mg capsule 100 mg PO DAILY PRN Constipation 11/27/22 09/30/24 01/27/24 History (Colace) sucralfate 1 gram tablet 1 g PO QID 12/16/22 09/30/24 01/27/24 History furosemide 40 mg tablet (Lasix) 40 mg PO DAILY 02/13/23 09/30/24 01/27/24 History potassium chloride 10 mEq 10 meq PO BID 02/13/23 09/30/24 01/27/24 History tablet,extended release cyanocobalamin (vitamin B-12) 1,000 mcg PO DAILY 03/03/23 09/30/24 01/27/24 History 1,000 mcg tablet ferrous sulfate 325 mg (65 mg 325 mg PO DAILY 03/03/23 09/30/24 01/27/24 History iron) tablet (Iron (ferrous sulfate)) trazodone 50 mg tablet 50 mg PO TID PRN Anxiety 03/03/23 09/30/24 01/27/24 History gabapentin 100 mg capsule 100 mg PO TID 08/25/23 09/30/24 01/27/24 History metoclopramide HCl 5 mg tablet 5 mg PO QID 08/25/23 09/30/24 01/27/24 History buspirone 5 mg tablet 5 mg PO TID 12/29/23 09/30/24 01/27/24 History carbidopa 25 mg-levodopa 100 mg 1 tab PO BID 12/29/23 09/30/24 01/27/24 History tablet oxycodone 10 mg tablet 10 mg PO TID PRN pain 12/29/23 09/30/24 01/27/24 History sertraline 50 mg tablet 50 mg PO DAILY 12/29/23 09/30/24 01/27/24 History omeprazole 40 mg capsule,delayed 20 mg PO DAILY 09/30/24 09/30/24 Unknown History release Physical Exam 2 Vital Signs and Narrative: Vital Signs: Last Vital Signs Temp 98.1 F 11/12/24 19:47 Pulse 64 11/12/24 21:24 Resp 11 L 11/12/24 21:24 BP 139/42 L 11/12/24 21:24 Pulse Ox 94 11/12/24 21:24 O2 Del Method Room Air 11/12/24 21:24 BMI result Body Mass Index 26.6 Elderly female lying in bed in no distress Neck supple, no JVD, conjunctival pallor present Regular rate and rhythm, S1-S2 heard Regular breath sounds bilaterally, no wheezing or crackles appreciated Abdomen soft nontender, no guarding, no rigidity Patient is awake, alert and oriented x3 ; no focal motor deficit Psych: Normal mood No pedal edema Results Labs 11/12/24 19:58 11/12/24 19:58 Labs: Laboratory Results - last 24 hr 11/12/24 11/12/24 11/12/24 19:58 20:16 20:45 MCV 92.3 MCH 27.5 MCHC 29.8 L RDW 13.8 Plt Count 282 D MPV 10.5 Immature Gran % (Auto) 0.6 H Neut % (Auto) 66.4 Lymph % (Auto) 15.6 L [place] % (Auto) 15.3 H Eos % (Auto) 1.2 Baso % (Auto) 0.9 Lymph # (Auto) 0.5 L [place] # (Auto) 0.5 Eos # (Auto) 0.0 Baso # (Auto) 0.0 Abs Immat Gran (auto) 0.02 Absolute Neuts (auto) 2.3 Absolute Nucleated RBC 0.000 Nucleated RBC % (auto) 0.0 PT 15.6 H INR 1.4 H APTT 40.0 H Anion Gap 16 Estim Creat Clear Calc 25.6 Estimated GFR 33 POC Glucose 292 H Random Glucose 293 H Calcium 7.6 L D Triglycerides 171 H Cholesterol 136 LDL Cholesterol, Calc 61 HDL Cholesterol 41 Stool Occult Blood POSITIVE Blood Type Antibody Screen Crossmatch 11/12/24 20:54 MCV MCH MCHC RDW Plt Count MPV Immature Gran % (Auto) Neut % (Auto) Lymph % (Auto) [place] % (Auto) Eos % (Auto) Baso % (Auto) Lymph # (Auto) [place] # (Auto) Eos # (Auto) Baso # (Auto) Abs Immat Gran (auto) Absolute Neuts (auto) Absolute Nucleated RBC Nucleated RBC % (auto) PT INR APTT Anion Gap Estim Creat Clear Calc Estimated GFR POC Glucose Random Glucose Calcium Triglycerides Cholesterol LDL Cholesterol, Calc HDL Cholesterol Stool Occult Blood Blood Type O Positive Antibody Screen NEGATIVE Crossmatch See Detail Assessment and Plan (1) Acute GI bleeding: Status: Acute (2) Blood loss anemia: Status: Acute Plan This is a 79-year-old female with pertinent history of congestive heart failure with preserved ejection fraction, paroxysmal atrial fibrillation on Eliquis, CKD stage 4, insulin-dependent type 2 diabetes mellitus, spinal stenosis, mood disorder, pulmonary hypertension, hypothyroidism who presents to the emergency department for evaluation of weakness #. Acute symptomatic blood loss anemia due to GI bleed: Will admit patient with cardiac monitoring. Stool occult blood positive in the ER. Initiated IV Protonix. Hold Eliquis. Consulted Gastroenterology, appreciate assistance. Transfusing 2 unit PRBC in the ER #. Congestive heart failure with preserved ejection fraction: Hold Lasix in the setting of GI bleed #. Paroxysmal atrial fibrillation: Rate controlled in the ER. Hold anticoagulation as above #. CKD stage 4: Creatinine baseline #. Insulin-dependent type 2 diabetes mellitus with hyperglycemia: Initiating Accu-Cheks with sliding scale insulin every 6 hours #. Mood disorder: Resume home mood stabilizers once no longer NPO #. Hypothyroidism: On Synthroid Med rec pending DVT prophylaxis: Mechanical Full code. Discussed with patient at bedside. Tried to call spouse via phone but no answer Admit as inpatient and will require two night minimum hospital stay for PRBC transfusion, close monitoring of H&H and hemodynamics (as above), which is not possible in a lesser acute setting. GI consult pending Quality Stroke Does the patient have a stroke diagnosis?: No VTE Prior VTE?: No VTE Risk Level:: Medical - moderate - high VTE Device Contraindication: N/A - Device Ordered VTE Drug Contraindication: Treatment Not Indicated
[2024-11-12 22:50] LABS: Glucose, Whole Blood 355 mg/dL (60-115)
[2024-11-12] MEDS: Insulin Regular, Human 100 UNIT/ML 10 ML VIAL IVPUSH (23:00)
[2024-11-12] MEDS: 0.9 % Sodium Chloride Flush 3 ML SYRINGE IVFLUSH (23:59)
[2024-11-12] MEDS: diazePAM 10 MG/2 ML CARTRIDGE 5 MG IVPUSH (23:59)
[2024-11-13] VITALS (16 sets, daily range): BP systolic 156–187; BP diastolic 51–74; PULSE 60–86; RESP 12–18; TEMP 36.8–37.3; O2SAT 92–97; BMI 26.6
[2024-11-13 00:29] LABS: Glucose, Whole Blood 204 mg/dL (60-115)
[2024-11-13] MEDS: Insulin Lispro 100 UNIT/ML 3 ML VIAL SUBCUT ×2 (00:31→19:27)
[2024-11-13] MEDS: Dextrose 50 % 25 GM/50 ML SYRINGE IVPUSH (05:24)
[2024-11-13] MEDS: Pantoprazole Sodium 40 MG/10 ML VIAL IVPUSH ×2 (05:41→15:44)
[2024-11-13 05:49] LABS: Glucose, Whole Blood 52 mg/dL (60-115)
[2024-11-13 05:50] LABS: Appearance Urine Clear; Color Urine Yellow; Glucose Urine UA Negative (Negative); Leukocyte Esterase Urine Trace (Negative); Nitrite Urine Negative (Negative); PH 5.5 (5.0-9.0); Specific Gravity - Urine 1.015 (1.005-1.025); UMIC TRIGGER UA YES; Urine Blood Negative (Negative); Urine Ketones Negative (Negative); Urine Protein 30 (1+) mg/dL (Neg-Trace)
[2024-11-13 05:56] LABS: MANUAL DIFF FLAG NO
[2024-11-13 05:57] LABS: Basophils Percent Auto 0.5 % (0-2); Eosinophils Absolute Auto 0.1 X10*3/uL (0.0-0.4); Eosinophils Percent Auto 1.6 % (0-4); Hematocrit 25.5 % (37.0-47.0); Hemoglobin 8.2 g/dl (12.0-16.0); Imm Gran Abs Auto 0.03 X10*3/uL (0.00-0.03); Imm Gran Pct Auto 0.5 % (0.0-0.4); Mean Corpuscular HGB Conc 32.2 g/dl (31.0-35.0); Mean Corpuscular Hemoglobin 28.9 pg (27.0-33.0); Mean Corpuscular Volume 89.8 fL (80.0-98.0); Mean Platelet Volume 10.1 fL (9.4-12.3); Monocytes Absolute Auto 0.8 X10*3/uL (0.1-1.2); Neutrophils Absolute Auto 3.8 x10*3/uL (2.0-8.3); Neutrophils Percent Auto 66.4 % (45-73); Platelet Count 250 X10*3/uL (160-400); Red Blood Count 2.84 X10*6/uL (4.20-5.50); Red Cell Distribution Width 13.7 % (11.0-16.0); White Blood Count 5.7 X10*3/uL (4.8-10.8)
[2024-11-13 06:05] LABS: Bacteria Urine 4+ (None Seen); RBC Urine 0-2 /HPF (0-2); Squamous Epithelial Cell Urine 0-2 /HPF (0-2); WBC Urine 0-5 /HPF (0-5)
[2024-11-13 06:10] LABS: Anion Gap 14 (12-20); Blood Urea Nitrogen 46 mg/dL (9-16); Calcium 7.5 mg/dL (8.4-10.2); Carbon Dioxide 27 mmol/L (22-29); Chloride 105 mmol/L (96-108); Creatinine Clr Calc Pharmacy 26.9; Estimated Glomerular Filt Rate 35; Glucose Random 175 mg/dL (60-115); Potassium 4.3 mmol/L (3.3-5.1); Sodium 142 mmol/L (135-145)
[2024-11-13 06:27] LABS: Glucose, Whole Blood 145 mg/dL (60-115)
--- NOTE | 2024-11-13 09:58 | PHA.MEDREC ---
Addendum entered by Tung Begum RPh 11/13/24 17:07: Reviewed by [facility] Original Note: Pharmacy Consult ? Medication Reconciliation Pharmacy has completed the medication reconciliation. Spoke to pt to confirm meds.
--- NOTE | 2024-11-13 11:10 | MHC.CM.PN ---
IMM 11/13/24, Pt lives with her sister and , her PCP is: Fito Raymundo, she has [facility] services 2 x a week, to help with her shower and cleaning. For DME, she uses a walker. She is able to [facility]. HCP is on file and confirmed: [facility]. DCP: home with services, CM to follow for DC needs.
[2024-11-13] MEDS: traZODone HCL 50 MG TABLET PO (11:42)
[2024-11-13] MEDS: Levothyroxine Sodium 50 MCG TABLET PO (11:42)
[2024-11-13] MEDS: oxyCODONE HCl Immed Release 5 MG TABLET 10 MG PO ×2 (11:43→23:30)
[2024-11-13] MEDS: 0.9 % Sodium Chloride Flush 3 ML SYRINGE IVFLUSH ×3 (11:43→19:59)
[2024-11-13] MEDS: Metoprolol Succinate ER 25 MG TAB.ER.24H PO (11:43)
--- NOTE | 2024-11-13 12:00 | MHC.SHP ---
Pre-Procedural Eval Section A - 24 Hr Update-Section A only Date of Service: 11/13/24 The patient is an INPATIENT: Yes Changes since office visit: No Cold of Flu in the past 2 weeks, No New Medical Problems, No Changes in Medication and No Patient answered all questions The patient has been examined within 24 hours of the surgical procedure. The History & Physical has been completed within 30 days and I have reviewed it.: Yes Section B - Complete if H&P > 30 days Chief Complaint: weakness Allergies: Allergies Allergy/AdvReac Type Severity Reaction Status Date / Time levofloxacin [From LEVAQUIN] AdvReac Mild flushed Verified 11/12/24 19:41 Plan I have reviewed the history and physical and performed a pertinent physical examination on my patient. No changes have occurred unless specified. Time Spent With Patient Time: Total time managing care of this patient today ____ minutes.
--- NOTE | 2024-11-13 12:16 | PC.NURSE ---
Pt unable to void, per night RN pt required straight cath to void. Bladder scan showed 626mls- MD Salcido notified. 16fr singh placed, output 750mls clear/yellow urine. Call panda within reach, all needs met at this time.
--- NOTE | 2024-11-13 12:20 | PC.NURSE ---
Pt cleaned up and repositioned in bed. New linens placed, redness noted to coccyx area- pillow placed under left hip to offload. Chan draining clear/yellow urine. Call panda within reach, all needs met at this time.
[2024-11-13 12:35] LABS: Glucose, Whole Blood 146 mg/dL (60-115)
--- NOTE | 2024-11-13 13:47 | P.PNIM_ITS ---
Subjective Subjective Date of Service: 11/13/24 Interval History: Seen and evaluated this morning Anxious about her current situation no bleeding reported Hb improved Review of Systems Review of Systems: Yes all other systems are reviewed and are negative Physical Exam 2 Vital Signs: Vital Signs: Last Vital Signs Temp 98.3 F 11/13/24 11:55 Pulse 84 11/13/24 11:55 Resp 15 11/13/24 11:55 BP 185/68 H 11/13/24 11:55 Pulse Ox 92 11/13/24 11:55 O2 Del Method Room Air 11/13/24 11:55 BMI result Body Mass Index 26.6 Const: Other: Constitutional : interactive, not in distress Cardiovascular : no JVP, no lower extremity edema Respiratory : bilateral chest movement, not in resp distress Gastrointestinal: soft, lax, Non tender Skin : Warm, Dry Neurological : Alert & oriented , No focal deficit Objective Data Active Medications Acetaminophen (Acetaminophen 325 Mg Tablet) 650 mg PO Q6H PRN PRN Reason: Pain, Mild 1-3,fever,headache Buspirone HCl (Buspirone Hcl 5 Mg Tablet) 5 mg PO TID YADY Calcium Carbonate (Calcium Carbonate 750 Mg Tab.Chew) 750 mg PO Q4H PRN PRN Reason: Heartburn Carbidopa/Levodopa (Carbidopa/Levodopa 25/100 Tablet) 1 tab PO TID YADY Dextrose (Dextrose 50 % 25 Gm/50 Ml Syringe) 25 gm IVPUSH Q15M PRN; Protocol PRN Reason: per Hypoglycemia Standing Ord. Last Admin: 11/13/24 05:24 Dose: 25 gm Documented By: BRENNA Gabapentin (Gabapentin 100 Mg Capsule) 100 mg PO TID [facility] Glucose (Glucose Gel 15 Gm Gel..Gram.) 15 gm PO Q15M PRN; Protocol PRN Reason: per Hypoglycemia Standing Ord. Insulin Human Lispro (Insulin Lispro 100 Unit/Ml 3 Ml Vial) 0 unit SUBCUT Q6H [facility]; Protocol Last Admin: 11/13/24 13:21 Dose: Not Given Documented By: SD Non-Admin Reason: No Insulin Coverage Comments: POC 146 no insulin needed. Levothyroxine Sodium (Levothyroxine Sodium 50 Mcg Tablet) 50 mcg PO DAILY@0600 [facility] Last Admin: 11/13/24 11:42 Dose: 50 mcg Documented By: SD Magnesium Hydroxide (Milk Of Magnesia 30 Ml Oral.Susp) 30 ml PO DAILY PRN PRN Reason: Constipation Melatonin (Melatonin 3 Mg Tablet) 6 mg PO BEDTIME PRN PRN Reason: Insomnia Metoprolol Succinate (Metoprolol Succinate Er 25 Mg Tab.Er.24h) 25 mg PO DAILY [facility]; Protocol Last Admin: 11/13/24 11:43 Dose: 25 mg Documented By: SD Ondansetron HCl (Ondansetron Hcl 4 Mg/2 Ml Vial) 4 mg IVPUSH Q8H PRN PRN Reason: Nausea and Vomiting Oxycodone HCl (Oxycodone Hcl Immed Release 5 Mg Tablet) 10 mg PO QID PRN PRN Reason: Pain, Severe (Pain Scale 7-10) Last Admin: 11/13/24 11:43 Dose: 10 mg Documented By: SD Pantoprazole Sodium (Pantoprazole Sodium 40 Mg/10 Ml Vial) 40 mg IVPUSH BID@0630,1630 [facility] Last Admin: 11/13/24 05:41 Dose: 40 mg Documented By: BRENNA Sertraline HCl (Sertraline Hcl 50 Mg Tablet) 50 mg PO DAILY [facility] Sodium Chloride (0.9 % Sodium Chloride Flush 3 Ml Syringe) 3 ml IVFLUSH QSHIFT [facility] Last Admin: 11/13/24 11:43 Dose: 3 ml Documented By: SD Trazodone HCl (Trazodone Hcl 50 Mg Tablet) 50 mg PO TID PRN PRN Reason: Anxiety Last Admin: 11/13/24 11:42 Dose: 50 mg Documented By: SD Labs 11/13/24 05:51 11/13/24 05:51 Labs: Laboratory Results - last 24 hr 11/12/24 11/12/24 11/12/24 19:58 20:16 20:45 MCV 92.3 MCH 27.5 MCHC 29.8 L RDW 13.8 Plt Count 282 D MPV 10.5 Immature Gran % (Auto) 0.6 H Neut % (Auto) 66.4 Lymph % (Auto) 15.6 L [place] % (Auto) 15.3 H Eos % (Auto) 1.2 Baso % (Auto) 0.9 Lymph # (Auto) 0.5 L [place] # (Auto) 0.5 Eos # (Auto) 0.0 Baso # (Auto) 0.0 Abs Immat Gran (auto) 0.02 Absolute Neuts (auto) 2.3 Absolute Nucleated RBC 0.000 Nucleated RBC % (auto) 0.0 PT 15.6 H INR 1.4 H APTT 40.0 H Anion Gap 16 Estim Creat Clear Calc 25.6 Estimated GFR 33 POC Glucose 292 H Random Glucose 293 H Calcium 7.6 L D Triglycerides 171 H Cholesterol 136 LDL Cholesterol, Calc 61 HDL Cholesterol 41 Urine Color Urine Appearance Urine pH Ur Specific [place] Urine Protein Urine Glucose (UA) Urine Ketones Urine Blood Urine Nitrite Ur Leukocyte Esterase Urine RBC Urine WBC Ur Squamous Epith Cells Urine Bacteria Hyaline Casts Stool Occult Blood POSITIVE Blood Type Antibody Screen Crossmatch 11/12/24 11/12/24 11/13/24 20:54 22:41 00:20 MCV MCH MCHC RDW Plt Count MPV Immature Gran % (Auto) Neut % (Auto) Lymph % (Auto) [place] % (Auto) Eos % (Auto) Baso % (Auto) Lymph # (Auto) [place] # (Auto) Eos # (Auto) Baso # (Auto) Abs Immat Gran (auto) Absolute Neuts (auto) Absolute Nucleated RBC Nucleated RBC % (auto) PT INR APTT Anion Gap Estim Creat Clear Calc Estimated GFR POC Glucose 355 H* 204 H Random Glucose Calcium Triglycerides Cholesterol LDL Cholesterol, Calc HDL Cholesterol Urine Color Urine Appearance Urine pH Ur Specific [place] Urine Protein Urine Glucose (UA) Urine Ketones Urine Blood Urine Nitrite Ur Leukocyte Esterase Urine RBC Urine WBC Ur Squamous Epith Cells Urine Bacteria Hyaline Casts Stool Occult Blood Blood Type O Positive Antibody Screen NEGATIVE Crossmatch See Detail 11/13/24 11/13/24 11/13/24 05:20 05:43 05:51 MCV 89.8 MCH 28.9 MCHC 32.2 RDW 13.7 Plt Count 250 MPV 10.1 Immature Gran % (Auto) 0.5 H Neut % (Auto) 66.4 Lymph % (Auto) 17.0 L [place] % (Auto) 14.0 H Eos % (Auto) 1.6 Baso % (Auto) 0.5 Lymph # (Auto) 1.0 L [place] # (Auto) 0.8 Eos # (Auto) 0.1 Baso # (Auto) 0.0 Abs Immat Gran (auto) 0.03 Absolute Neuts (auto) 3.8 Absolute Nucleated RBC 0.000 Nucleated RBC % (auto) 0.0 PT INR APTT Anion Gap 14 Estim Creat Clear Calc 26.9 Estimated GFR 35 POC Glucose 52 L* Random Glucose 175 H Calcium 7.5 L Triglycerides Cholesterol LDL Cholesterol, Calc HDL Cholesterol Urine Color Yellow Urine Appearance Clear Urine pH 5.5 Ur Specific [place] 1.015 Urine Protein 30 (1+) H Urine Glucose (UA) Negative Urine Ketones Negative Urine Blood Negative Urine Nitrite Negative Ur Leukocyte Esterase Trace H Urine RBC 0-2 Urine WBC 0-5 Ur Squamous Epith Cells 0-2 Urine Bacteria 4+ Hyaline Casts 3-5 Stool Occult Blood Blood Type Antibody Screen Crossmatch 11/13/24 11/13/24 06:22 12:28 MCV MCH MCHC RDW Plt Count MPV Immature Gran % (Auto) Neut % (Auto) Lymph % (Auto) [place] % (Auto) Eos % (Auto) Baso % (Auto) Lymph # (Auto) [place] # (Auto) Eos # (Auto) Baso # (Auto) Abs Immat Gran (auto) Absolute Neuts (auto) Absolute Nucleated RBC Nucleated RBC % (auto) PT INR APTT Anion Gap Estim Creat Clear Calc Estimated GFR POC Glucose 145 H 146 H Random Glucose Calcium Triglycerides Cholesterol LDL Cholesterol, Calc HDL Cholesterol Urine Color Urine Appearance Urine pH Ur Specific [place] Urine Protein Urine Glucose (UA) Urine Ketones Urine Blood Urine Nitrite Ur Leukocyte Esterase Urine RBC Urine WBC Ur Squamous Epith Cells Urine Bacteria Hyaline Casts Stool Occult Blood Blood Type Antibody Screen Crossmatch Assessment and Plan (1) Severe anemia: Status: Acute (2) GI bleed: Status: Acute (3) Blood loss anemia: Status: Acute (4) Acute blood loss anemia: Status: Acute (5) Acute GI bleeding: Status: Acute (6) Urinary retention: Status: Acute Plan This is a 79-year-old female with pertinent history of congestive heart failure with preserved ejection fraction, paroxysmal atrial fibrillation on Eliquis, CKD stage 4, insulin-dependent type 2 diabetes mellitus, spinal stenosis, mood disorder, pulmonary hypertension, hypothyroidism who presents to the emergency department for evaluation of weakness # Acute symptomatic blood loss anemia due to GI bleed Hb improved >8 after 2 units PRBCs cardiac monitoring Stool occult blood positive IV Protonix Hold Eliquis Gastroenterology to do EGD tomorrow NPO post midnight follow H&H # Acute urine retention Straight cath multiple times overnight Place Chan and monitor Start Tamsulosin if needed # Hx Congestive heart failure with preserved ejection fraction not in exacerbation. Hold Lasix in the setting of GI bleed # Paroxysmal atrial fibrillation Rate controlled. Continue Metoprolol # Elevated BP Add Amlodipine 2.5mg daily and monitor # CKD stage 4 Creatinine baseline # Insulin-dependent type 2 diabetes mellitus with hyperglycemia Accu-Cheks with sliding scale insulin # Mood disorder home mood stabilizers # Hypothyroidism On Synthroid DVT prophylaxis: Mechanical Full code Admit as inpatient and will require overnight hospital stay for PRBC transfusion, monitoring of H&H and GI procedure, which is not possible in a lesser acute setting. GI consult pending Quality Stroke Does the patient have a stroke diagnosis?: No VTE Prior VTE?: No VTE Risk Level:: Medical - moderate - high VTE Device Contraindication: N/A - Device Ordered VTE Drug Contraindication: Treatment Not Indicated
--- NOTE | 2024-11-13 13:55 | CONS_ITS ---
DATE OF SERVICE: 11/13/2024 REFERRING PHYSICIAN: Tequila Hauser MD REASON FOR CONSULTATION: Anemia and Hemoccult-positive stools. HISTORY OF PRESENT ILLNESS: Patient is a pleasant 79-year-old woman, who was admitted to the hospital after presenting to the emergency room yesterday with complaints of weakness and a fall at home. Symptoms began the day of admission. There was no loss of consciousness or trauma. She was able to lower herself to the floor when she felt weak. She was evaluated in the emergency department where laboratory studies were obtained showing a hematocrit of 19, down from 34 in September of this year over 6 weeks. She received transfusion of 2 units of packed red blood cells. She has had no reported bleeding. Stools have been dark brown and Hemoccult positive. She has a history of gastroesophageal reflux disease and gastritis and has been on a proton pump inhibitor, which she states compliance with at home. Endoscopy in 2020 showed gastritis, but no H pylori. Colonoscopy at the same time showed an inflammatory polyp. She is on Eliquis for atrial fibrillation. PAST MEDICAL HISTORY: 1. EGD and colonoscopy as above. 2. Congestive heart failure with preserved ejection fraction. 3. Atrial fibrillation. 4. Chronic kidney disease. 5. Diabetes mellitus. 6. Mood disorder. 7. Pulmonary hypertension. 8. Spinal stenosis. 9. Hypothyroidism. 10. Anxiety/depression. CURRENT MEDICATIONS: Her current medication list is reviewed in the chart. She last took her Eliquis yesterday morning. ALLERGIES: LEVOFLOXACIN. FAMILY HISTORY: This is reviewed with the patient and is noncontributory. SOCIAL HISTORY: There is no current tobacco, alcohol, or substance abuse. REVIEW OF SYSTEMS: SKIN: No pruritus. HEENT: Negative. CARDIOPULMONARY: No shortness of breath or chest pain. GASTROINTESTINAL: As above. GENITOURINARY: Negative. NEUROPSYCHIATRIC: Negative. PHYSICAL EXAMINATION: GENERAL: Shows a pleasant female, lying comfortably in bed. VITAL SIGNS: Reviewed in the electronic medical record and are stable. SKIN: Anicteric. HEENT: Shows no scleral icterus. NECK: Without lymphadenopathy. LUNGS: Clear. HEART: Shows regular rate and rhythm. S1, S2. No murmur. ABDOMEN: Soft without focal masses or tenderness. Bowel sounds are present. No organomegaly is noted. EXTREMITIES: Without edema. LABORATORY DATA AND IMAGING STUDIES: Reviewed. IMPRESSION: Anemia with Hemoccult-positive stools. At this time, I have discussed with her undergoing endoscopy for further evaluation of her drop in her hematocrit between September 30 and November 12. She is aware of risks and benefits, and agrees to proceed. This will be scheduled for tomorrow. In the meantime, she can have a clear liquid diet. I agree treating her with a proton pump inhibitor. She is aware of risks and benefits of endoscopy and agrees to proceed. MD BRADLEY Antoine/VANESSA / [phone]
--- NOTE | 2024-11-13 13:57 | PC.NURSE ---
Pt BP 180s/60s, MD Salcido notified. Pt asymptomatic- denies blurry vision/lightheadedness/dizziness. No new orders at this time.
[2024-11-13] MEDS: amLODIPine Besylate 2.5 MG TABLET PO (15:44)
[2024-11-13] MEDS: Gabapentin 100 MG CAPSULE PO ×2 (15:44→19:58)
[2024-11-13] MEDS: Carbidopa/Levodopa 25/100 TABLET 1 TAB PO ×2 (15:44→19:58)
[2024-11-13] MEDS: busPIRone HCl 5 MG TABLET PO ×2 (15:44→19:58)
[2024-11-13 19:22] LABS: Glucose, Whole Blood 181 mg/dL (60-115)
[2024-11-13 23:50] LABS: Glucose, Whole Blood 103 mg/dL (60-115)
[2024-11-14] VITALS (7 sets, daily range): BP systolic 126–180; BP diastolic 62–86; PULSE 51–94; RESP 14–18; TEMP 36.1–37.2; O2SAT 92–95; BMI 26.6
[2024-11-14] MEDS: Pantoprazole Sodium 40 MG/10 ML VIAL IVPUSH ×2 (06:10→16:09)
[2024-11-14 07:03] LABS: Glucose, Whole Blood 96 mg/dL (60-115)
[2024-11-14 07:08] LABS: Basophils Percent Auto 0.8 % (0-2); Eosinophils Absolute Auto 0.1 X10*3/uL (0.0-0.4); Eosinophils Percent Auto 2.6 % (0-4); Hematocrit 28.2 % (37.0-47.0); Hemoglobin 8.6 g/dl (12.0-16.0); Imm Gran Abs Auto 0.02 X10*3/uL (0.00-0.03); Imm Gran Pct Auto 0.4 % (0.0-0.4); Lymphocytes Absolute Auto 0.9 X10*3/uL (1.2-4.9); Lymphocytes Percent Auto 18.2 % (20-40); MANUAL DIFF FLAG SCAN; Mean Corpuscular HGB Conc 30.5 g/dl (31.0-35.0); Mean Corpuscular Volume 91.9 fL (80.0-98.0); Mean Platelet Volume 10.6 fL (9.4-12.3); Monocytes Percent Auto 20.2 % (2-11); Neutrophils Absolute Auto 2.9 x10*3/uL (2.0-8.3); Neutrophils Percent Auto 57.8 % (45-73); Platelet Count 248 X10*3/uL (160-400); Red Blood Count 3.07 X10*6/uL (4.20-5.50); Red Cell Distribution Width 14.1 % (11.0-16.0); SCAN SMEAR FLAG 1
[2024-11-14 07:27] LABS: Anion Gap 10 (12-20); Blood Urea Nitrogen 31 mg/dL (9-16); Calcium 7.7 mg/dL (8.4-10.2); Carbon Dioxide 29 mmol/L (22-29); Chloride 105 mmol/L (96-108); Creatinine Clr Calc Pharmacy 37.1; Estimated Glomerular Filt Rate 51; Glucose Random 102 mg/dL (60-115); Potassium 4.2 mmol/L (3.3-5.1); Sodium 140 mmol/L (135-145)
[2024-11-14 08:53] LABS: SLIDE REVIEW VERIFIED
[2024-11-14] MEDS: Metoprolol Succinate ER 25 MG TAB.ER.24H PO (09:08)
[2024-11-14] MEDS: Gabapentin 100 MG CAPSULE PO ×3 (09:08→20:34)
[2024-11-14] MEDS: oxyCODONE HCl Immed Release 5 MG TABLET 10 MG PO ×2 (09:08→16:06)
[2024-11-14] MEDS: Carbidopa/Levodopa 25/100 TABLET 1 TAB PO ×3 (09:09→20:34)
[2024-11-14] MEDS: amLODIPine Besylate 2.5 MG TABLET PO (09:09)
[2024-11-14] MEDS: Sertraline HCL 50 MG TABLET PO (09:09)
[2024-11-14] MEDS: busPIRone HCl 5 MG TABLET PO ×3 (09:09→20:34)
[2024-11-14] MEDS: 0.9 % Sodium Chloride Flush 3 ML SYRINGE IVFLUSH ×3 (09:13→20:35)
[2024-11-14 11:53] LABS: Glucose, Whole Blood 117 mg/dL (60-115)
[2024-11-14] MEDS: ondansetron HCL 4 MG/2 ML VIAL IVPUSH (12:57)
--- NOTE | 2024-11-14 14:16 | MHC.CLN ---
CONSULT HT 5' WT 50.6KG (11/11/24) BMI 21.8-WNL PT IS 111% IBW RANGE INDICATES SLIGHTLY OVER WT FOR HT PREVIOUS WTS: 83KG (11/11/24) 36.4KG (11/10/24) PREVIOUS WTS WERE IN ERROR DISCUSSED WITH PT'S FAMILY AND PT TYPICALLY WEIGHS BETWEEN 110-120# NOTED PREVIOUS WT HX 52.3KG (05/20/23) WITHIN RANGE PER PT AND FAMILY PT WITHOUT S/S MALNUTRITION , HOWEVER PT IS OF ADVANCED AGE EATS SMALL PORTIONS-LIKES EGG SALAAD CARDIAC DIET CONTINUE CURRENT CARE PLAN RD TO FOLLOW WEEKLY
--- NOTE | 2024-11-14 14:39 | MHC.CLN ---
NUTRITION CONSULT-ROUTINE. CURRENTLY NPO FOR UPPER ENDOSCOPY TODAY. WEIGHT LOSS X 10 MONTHS -14% WITH WEIGHT STABLE X 30 DAYS. PER STONE UNLOADER, SKIN WITH OPEN AREA TO COCCYX. RECOMMEND ADD NUTRITIONAL SUPPLEMENT WHEN DIET ADVANCED TO PROMOTE SKIN INTEGRITY. FOLLOW FOR DIET ADVANCEMENT AND SKIN INTEGRITY. SEE CLINICAL NUTRITION ASSESSMENT 11/14/24.
--- NOTE | 2024-11-14 15:11 | MHC.CM.PN ---
EMR reviewed and per MD rounds, pt is not medically cleared for discharge at this time, GI consult pending.
--- NOTE | 2024-11-14 15:56 | HO.PM.IMPN ---
Subjective Subjective Date of Service: 11/14/24 Interval History: Seen and evaluated this morning stable H&H no bleeding reported Hb improved Review of Systems Review of Systems: Yes all other systems are reviewed and are negative Physical Exam Vital Signs: Vital Signs: Last Vital Signs Temp 98.2 F 11/14/24 12:00 Pulse 77 11/14/24 12:00 Resp 14 11/14/24 12:00 BP 142/84 H 11/14/24 12:00 Pulse Ox 95 11/14/24 12:00 O2 Del Method Room Air 11/14/24 12:00 BMI result Body Mass Index 26.6 Const: Other: Constitutional : interactive, not in distress Cardiovascular : no JVP, no lower extremity edema Respiratory : bilateral chest movement, not in resp distress Gastrointestinal: soft, lax, Non tender Skin : Warm, Dry Neurological : Alert & oriented , No focal deficit , mildly anxious Objective Data Active Medications Acetaminophen (Acetaminophen 325 Mg Tablet) 650 mg PO Q6H PRN PRN Reason: Pain, Mild 1-3,fever,headache Amlodipine Besylate (Amlodipine Besylate 2.5 Mg Tablet) 2.5 mg PO DAILY [facility]; Protocol Last Admin: 11/14/24 09:09 Dose: 2.5 mg Documented By: GWYN Buspirone HCl (Buspirone Hcl 5 Mg Tablet) 5 mg PO TID [facility] Last Admin: 11/14/24 09:09 Dose: 5 mg Documented By: GWYN Calcium Carbonate (Calcium Carbonate 750 Mg Tab.Chew) 750 mg PO Q4H PRN PRN Reason: Heartburn Carbidopa/Levodopa (Carbidopa/Levodopa 25/100 Tablet) 1 tab PO TID [facility] Last Admin: 11/14/24 09:09 Dose: 1 tab Documented By: GWYN Dextrose (Dextrose 50 % 25 Gm/50 Ml Syringe) 25 gm IVPUSH Q15M PRN; Protocol PRN Reason: per Hypoglycemia Standing Ord. Last Admin: 11/13/24 05:24 Dose: 25 gm Documented By: BRENNA Gabapentin (Gabapentin 100 Mg Capsule) 100 mg PO TID [facility] Last Admin: 11/14/24 09:08 Dose: 100 mg Documented By: GWYN Glucose (Glucose Gel 15 Gm Gel..Gram.) 15 gm PO Q15M PRN; Protocol PRN Reason: per Hypoglycemia Standing Ord. Insulin Human Lispro (Insulin Lispro 100 Unit/Ml 3 Ml Vial) 0 unit SUBCUT Q6H [facility]; Protocol Last Admin: 11/14/24 11:54 Dose: Not Given Documented By: GWYN Non-Admin Reason: No Insulin Coverage Levothyroxine Sodium (Levothyroxine Sodium 50 Mcg Tablet) 50 mcg PO DAILY@0600 [facility] Last Admin: 11/14/24 04:25 Dose: Not Given Documented By: FAREED Non-Admin Reason: NPO Magnesium Hydroxide (Milk Of Magnesia 30 Ml Oral.Susp) 30 ml PO DAILY PRN PRN Reason: Constipation Melatonin (Melatonin 3 Mg Tablet) 6 mg PO BEDTIME PRN PRN Reason: Insomnia Metoprolol Succinate (Metoprolol Succinate Er 25 Mg Tab.Er.24h) 25 mg PO DAILY [facility]; Protocol Last Admin: 11/14/24 09:08 Dose: 25 mg Documented By: GWYN Ondansetron HCl (Ondansetron Hcl 4 Mg/2 Ml Vial) 4 mg IVPUSH Q8H PRN PRN Reason: Nausea and Vomiting Last Admin: 11/14/24 12:57 Dose: 4 mg Documented By: GWYN Oxycodone HCl (Oxycodone Hcl Immed Release 5 Mg Tablet) 10 mg PO QID PRN PRN Reason: Pain, Severe (Pain Scale 7-10) Last Admin: 11/14/24 09:08 Dose: 10 mg Documented By: GWYN Pantoprazole Sodium (Pantoprazole Sodium 40 Mg/10 Ml Vial) 40 mg IVPUSH BID@0630,1630 [facility] Last Admin: 11/14/24 06:10 Dose: 40 mg Documented By: FAREED Sertraline HCl (Sertraline Hcl 50 Mg Tablet) 50 mg PO DAILY [facility] Last Admin: 11/14/24 09:09 Dose: 50 mg Documented By: GWYN Sodium Chloride (0.9 % Sodium Chloride Flush 3 Ml Syringe) 3 ml IVFLUSH QSHIFT [facility] Last Admin: 11/14/24 09:13 Dose: 3 ml Documented By: GWYN Trazodone HCl (Trazodone Hcl 50 Mg Tablet) 50 mg PO TID PRN PRN Reason: Anxiety Last Admin: 11/13/24 11:42 Dose: 50 mg Documented By: SD Labs 11/14/24 06:49 11/14/24 06:49 Labs: Laboratory Results - last 24 hr 11/13/24 11/13/24 11/14/24 18:25 23:40 06:49 MCV 91.9 MCH 28.0 MCHC 30.5 L RDW 14.1 Plt Count 248 MPV 10.6 Immature Gran % (Auto) 0.4 Neut % (Auto) 57.8 Lymph % (Auto) 18.2 L [place] % (Auto) 20.2 H Eos % (Auto) 2.6 Baso % (Auto) 0.8 Lymph # (Auto) 0.9 L [place] # (Auto) 1.0 Eos # (Auto) 0.1 Baso # (Auto) 0.0 Abs Immat Gran (auto) 0.02 Absolute Neuts (auto) 2.9 Absolute Nucleated RBC 0.000 Nucleated RBC % (auto) 0.0 Smear Tech's Comments VERIFIED Anion Gap 10 L Estim Creat Clear Calc 37.1 Estimated GFR 51 POC Glucose 181 H 103 Random Glucose 102 Calcium 7.7 L 11/14/24 11/14/24 06:59 11:48 MCV MCH MCHC RDW Plt Count MPV Immature Gran % (Auto) Neut % (Auto) Lymph % (Auto) [place] % (Auto) Eos % (Auto) Baso % (Auto) Lymph # (Auto) [place] # (Auto) Eos # (Auto) Baso # (Auto) Abs Immat Gran (auto) Absolute Neuts (auto) Absolute Nucleated RBC Nucleated RBC % (auto) Smear Tech's Comments Anion Gap Estim Creat Clear Calc Estimated GFR POC Glucose 96 117 H Random Glucose Calcium Assessment and Plan (1) Severe anemia: Status: Acute (2) GI bleed: Status: Acute (3) Blood loss anemia: Status: Acute (4) Acute blood loss anemia: Status: Acute (5) Acute GI bleeding: Status: Acute (6) Urinary retention: Status: Acute Plan This is a 79-year-old female with pertinent history of congestive heart failure with preserved ejection fraction, paroxysmal atrial fibrillation on Eliquis, CKD stage 4, insulin-dependent type 2 diabetes mellitus, spinal stenosis, mood disorder, pulmonary hypertension, hypothyroidism who presents to the emergency department for evaluation of weakness # Acute symptomatic blood loss anemia due to GI bleed Hb improved >8 after 2 units PRBCs cardiac monitoring Stool occult blood positive IV Protonix IVF [facility] to do EGD today NPO for now follow H&H # Acute urine retention Straight cath multiple times overnight Place Chan and monitor Start Tamsulosin if needed # Hx Congestive heart failure with preserved ejection fraction not in exacerbation. Hold Lasix in the setting of GI bleed # Paroxysmal atrial fibrillation Rate controlled. Continue Metoprolol # Elevated BP Add Amlodipine 2.5mg daily and monitor # CKD stage 4 Creatinine baseline # Insulin-dependent type 2 diabetes mellitus with hyperglycemia Accu-Cheks with sliding scale insulin # Mood disorder home mood stabilizers # Hypothyroidism On Synthroid DVT prophylaxis: Mechanical Full code Admit as inpatient and will require overnight hospital stay for PRBC transfusion, monitoring of H&H and GI procedure, which is not possible in a lesser acute setting. GI consult pending Quality Stroke Does the patient have a stroke diagnosis?: No VTE Prior VTE?: No VTE Risk Level:: Medical - moderate - high VTE Device Contraindication: N/A - Device Ordered VTE Drug Contraindication: Treatment Not Indicated
[2024-11-14] MEDS: Lactated Ringers 1,000 ML 80 ML IVCONT (16:09)
[2024-11-14 17:33] LABS: Glucose, Whole Blood 110 mg/dL (60-115)
--- NOTE | 2024-11-14 17:55 | PM.EVENT ---
Event Note Date of Service: 11/14/24 Event Note: GI-Patient's EGD will have to unfortunately be bumped to tomorrow, 11/15/24, due to no time in the OR until much later this evening. Patient has been stable over the course of today. Orders have been placed for this change in plans and I advised her nurse of this as well. Please call me if problems tonight. Thanks Time Spent With Patient Time: Total time managing care of this patient today ____ minutes.
[2024-11-14 23:26] LABS: Glucose, Whole Blood 144 mg/dL (60-115)
[2024-11-15] VITALS (12 sets, daily range): BP systolic 110–186; BP diastolic 55–76; PULSE 38–95; RESP 12–20; TEMP 36.1–36.7; O2SAT 94–100
[2024-11-15] MEDS: oxyCODONE HCl Immed Release 5 MG TABLET 10 MG PO ×3 (02:34→23:04)
[2024-11-15 05:05] LABS: Glucose, Whole Blood 117 mg/dL (60-115)
[2024-11-15] MEDS: Lactated Ringers 1,000 ML 80 ML IVCONT ×2 (05:47→15:59)
[2024-11-15] MEDS: Pantoprazole Sodium 40 MG/10 ML VIAL IVPUSH (05:53)
[2024-11-15 07:59] LABS: MANUAL DIFF FLAG NO
[2024-11-15 08:01] LABS: Basophils Percent Auto 0.7 % (0-2); Eosinophils Absolute Auto 0.1 X10*3/uL (0.0-0.4); Hematocrit 28.2 % (37.0-47.0); Hemoglobin 8.8 g/dl (12.0-16.0); Imm Gran Abs Auto 0.02 X10*3/uL (0.00-0.03); Imm Gran Pct Auto 0.4 % (0.0-0.4); Lymphocytes Absolute Auto 0.9 X10*3/uL (1.2-4.9); Lymphocytes Percent Auto 20.4 % (20-40); Mean Corpuscular HGB Conc 31.2 g/dl (31.0-35.0); Mean Corpuscular Hemoglobin 28.6 pg (27.0-33.0); Mean Corpuscular Volume 91.6 fL (80.0-98.0); Mean Platelet Volume 10.5 fL (9.4-12.3); Monocytes Absolute Auto 0.7 X10*3/uL (0.1-1.2); Monocytes Percent Auto 14.3 % (2-11); Neutrophils Absolute Auto 2.8 x10*3/uL (2.0-8.3); Neutrophils Percent Auto 61.2 % (45-73); Platelet Count 254 X10*3/uL (160-400); Red Blood Count 3.08 X10*6/uL (4.20-5.50); Red Cell Distribution Width 13.8 % (11.0-16.0); White Blood Count 4.6 X10*3/uL (4.8-10.8)
[2024-11-15 08:19] LABS: Anion Gap 11 (12-20); Blood Urea Nitrogen 23 mg/dL (9-16); Calcium 7.6 mg/dL (8.4-10.2); Carbon Dioxide 27 mmol/L (22-29); Chloride 105 mmol/L (96-108); Estimated Glomerular Filt Rate 54; Glucose Fasting 113 mg/dL (60-99); Potassium 4.1 mmol/L (3.3-5.1); Sodium 139 mmol/L (135-145)
[2024-11-15] MEDS: amLODIPine Besylate 2.5 MG TABLET PO (08:45)
[2024-11-15] MEDS: Carbidopa/Levodopa 25/100 TABLET 1 TAB PO ×3 (08:45→21:52)
[2024-11-15] MEDS: Metoprolol Succinate ER 25 MG TAB.ER.24H PO (08:45)
[2024-11-15] MEDS: 0.9 % Sodium Chloride Flush 3 ML SYRINGE IVFLUSH ×2 (08:45→14:46)
[2024-11-15] MEDS: Gabapentin 100 MG CAPSULE PO ×2 (08:45→14:45)
[2024-11-15] MEDS: traZODone HCL 50 MG TABLET PO ×2 (08:45→15:58)
[2024-11-15] MEDS: busPIRone HCl 5 MG TABLET PO ×3 (08:45→21:52)
[2024-11-15] MEDS: Sertraline HCL 50 MG TABLET PO (08:46)
[2024-11-15] MEDS: Acetaminophen 325 MG TABLET 650 MG PO ×2 (08:46→14:45)
[2024-11-15 09:51] LABS: Glucose, Whole Blood 112 mg/dL (60-115)
--- NOTE | 2024-11-15 10:41 | HO.ANESPROP2 ---
HPI - Anesthesia Eval Consult details Narrative: upper endo PMFSH Active Problems Active Problems: All Active Problems Severe anemia (Acute) GI bleed (Acute) Blood loss anemia (Acute) Acute blood loss anemia (Acute) Acute GI bleeding (Acute) Urinary retention (Acute) Hypotension (Acute) Acute on chronic heart failure with preserved ejection fraction (HFpEF) (Acute) Chronic kidney disease (CKD) (Acute) Pulmonary hypertension (Acute) PAF (paroxysmal atrial fibrillation) (Acute) Chronic heart failure with preserved ejection fraction (HFpEF) (Acute) Diarrhea (Acute) Allergic reaction (Acute) Past Medical History Medical History GRACE (generalized anxiety disorder) MDD (major depressive disorder), recurrent episode GI bleed Anemia Congestive heart failure Depressive disorder PAF (paroxysmal atrial fibrillation) Spinal stenosis CKD (chronic kidney disease), stage IV Diastolic CHF Thyroid activity decreased HTN (hypertension) Diabetes Family History Family History Other Diabetes Family history of problems with anesthesia: No Surgical History History of Problems with Anesthesia: No Social History Social History Household Members: Spouse and Family Housing: House Do you presently have visiting nurse or other home services: Yes Unable to assess alcohol history related to: Unable to respond Alcohol intake: never Patient Tobacco Use Status: Never used Tobacco Second Hand Smoke Exposure: No Advance Directives Date on File: 12/16/22 service: No Current occupational status: retired Meds Allergies Allergy/AdvReac Type Severity Reaction Status Date / Time levofloxacin [From LEVAQUIN] AdvReac Mild flushed Verified 11/12/24 19:41 Active Medications: Current Medications Acetaminophen (Acetaminophen 325 Mg Tablet) 650 mg PO Q6H PRN PRN Reason: Pain, Mild 1-3,fever,headache Last Admin: 11/15/24 08:46 Dose: 650 mg Amlodipine Besylate (Amlodipine Besylate 2.5 Mg Tablet) 2.5 mg PO DAILY [facility]; Protocol Last Admin: 11/15/24 08:45 Dose: 2.5 mg Buspirone HCl (Buspirone Hcl 5 Mg Tablet) 5 mg PO TID [facility] Last Admin: 11/15/24 08:45 Dose: 5 mg Calcium Carbonate (Calcium Carbonate 750 Mg Tab.Chew) 750 mg PO Q4H PRN PRN Reason: Heartburn Carbidopa/Levodopa (Carbidopa/Levodopa 25/100 Tablet) 1 tab PO TID [facility] Last Admin: 11/15/24 08:45 Dose: 1 tab Dextrose (Dextrose 50 % 25 Gm/50 Ml Syringe) 25 gm IVPUSH Q15M PRN; Protocol PRN Reason: per Hypoglycemia Standing Ord. Last Admin: 11/13/24 05:24 Dose: 25 gm Gabapentin (Gabapentin 100 Mg Capsule) 100 mg PO TID [facility] Last Admin: 11/15/24 08:45 Dose: 100 mg Glucose (Glucose Gel 15 Gm Gel..Gram.) 15 gm PO Q15M PRN; Protocol PRN Reason: per Hypoglycemia Standing Ord. Lactated Ringer's (Lr) 1,000 mls @ 80 mls/hr IVCONT .[id number] [facility] Last Admin: 11/15/24 05:47 Dose: 80 mls/hr Insulin Human Lispro (Insulin Lispro 100 Unit/Ml 3 Ml Vial) 0 unit SUBCUT Q6H [facility]; Protocol Last Admin: 11/15/24 05:39 Dose: Not Given Levothyroxine Sodium (Levothyroxine Sodium 50 Mcg Tablet) 50 mcg PO DAILY@0600 [facility] Last Admin: 11/15/24 05:39 Dose: Not Given Magnesium Hydroxide (Milk Of Magnesia 30 Ml Oral.Susp) 30 ml PO DAILY PRN PRN Reason: Constipation Melatonin (Melatonin 3 Mg Tablet) 6 mg PO BEDTIME PRN PRN Reason: Insomnia Metoprolol Succinate (Metoprolol Succinate Er 25 Mg Tab.Er.24h) 25 mg PO DAILY [facility]; Protocol Last Admin: 11/15/24 08:45 Dose: 25 mg Ondansetron HCl (Ondansetron Hcl 4 Mg/2 Ml Vial) 4 mg IVPUSH Q8H PRN PRN Reason: Nausea and Vomiting Last Admin: 11/14/24 12:57 Dose: 4 mg Oxycodone HCl (Oxycodone Hcl Immed Release 5 Mg Tablet) 10 mg PO QID PRN PRN Reason: Pain, Severe (Pain Scale 7-10) Last Admin: 11/15/24 02:34 Dose: 10 mg Pantoprazole Sodium (Pantoprazole Sodium 40 Mg/10 Ml Vial) 40 mg IVPUSH BID@0630,1630 [facility] Last Admin: 11/15/24 05:53 Dose: 40 mg Sertraline HCl (Sertraline Hcl 50 Mg Tablet) 50 mg PO DAILY [facility] Last Admin: 11/15/24 08:46 Dose: 50 mg Sodium Chloride (0.9 % Sodium Chloride Flush 3 Ml Syringe) 3 ml IVFLUSH QSHIFT [facility] Last Admin: 11/15/24 08:45 Dose: 3 ml Trazodone HCl (Trazodone Hcl 50 Mg Tablet) 50 mg PO TID PRN PRN Reason: Anxiety Last Admin: 11/15/24 08:45 Dose: 50 mg Home Medications ?Medication ?Instructions ?Recorded ?Confirmed ?Last Taken ?Type levothyroxine 50 mcg tablet 50 mcg PO DAILY@0600 10/11/22 11/13/24 11/12/24 History docusate sodium 100 mg capsule 100 mg PO DAILY PRN Constipation 11/27/22 11/13/24 01/27/24 History (Colace) sucralfate 1 gram tablet 1 g PO QID 12/16/22 11/13/24 11/12/24 History furosemide 40 mg tablet (Lasix) 40 mg PO DAILY 02/13/23 11/13/24 11/12/24 History potassium chloride 10 mEq 10 meq PO BID 02/13/23 11/13/24 11/12/24 History tablet,extended release trazodone 50 mg tablet 50 mg PO TID PRN Anxiety 03/03/23 11/13/24 01/27/24 History gabapentin 100 mg capsule 100 mg PO TID 08/25/23 11/13/24 11/12/24 History metoclopramide HCl 5 mg tablet 5 mg PO QID 08/25/23 11/13/24 11/12/24 History buspirone 5 mg tablet 5 mg PO TID 12/29/23 11/13/24 11/12/24 History carbidopa 25 mg-levodopa 100 mg 1 tab PO TID 12/29/23 11/13/24 11/12/24 History tablet oxycodone 10 mg tablet 10 mg PO QID PRN pain 12/29/23 11/13/24 01/27/24 History sertraline 50 mg tablet 50 mg PO DAILY 12/29/23 11/13/24 11/12/24 History omeprazole 20 mg capsule,delayed 20 mg PO DAILY@0630 11/13/24 11/13/24 11/12/24 History release Exam Height,Weight and Vital Signs: Height 5 ft Weight 61.8 kg Last Vital Signs Temp 97.5 F 11/15/24 10:01 Pulse 66 11/15/24 10:01 Resp 20 11/15/24 10:01 BP 153/59 H 11/15/24 10:01 Pulse Ox 94 11/15/24 10:01 O2 Del Method Room Air 11/15/24 10:01 Pertinent Lab Results Pertinent Lab Results: Laboratory Tests 11/12/24 11/12/24 11/12/24 19:58 20:16 20:45 WBC 3.4 L RBC 2.07 L D Hgb 5.7 L* D Hct 19.1 L* D MCV 92.3 MCH 27.5 MCHC 29.8 L RDW 13.8 Plt Count 282 D MPV 10.5 Immature Gran % (Auto) 0.6 H Neut % (Auto) 66.4 Lymph % (Auto) 15.6 L [place] % (Auto) 15.3 H Eos % (Auto) 1.2 Baso % (Auto) 0.9 Lymph # (Auto) 0.5 L [place] # (Auto) 0.5 Eos # (Auto) 0.0 Baso # (Auto) 0.0 Abs Immat Gran (auto) 0.02 Absolute Neuts (auto) 2.3 Absolute Nucleated RBC 0.000 Nucleated RBC % (auto) 0.0 Smear Tech's Comments PT 15.6 H INR 1.4 H APTT 40.0 H Sodium 138 Potassium 4.5 Chloride 102 Carbon Dioxide 25 Anion Gap 16 BUN 47 H Creatinine 1.51 H Estim Creat Clear Calc 25.6 Estimated GFR 33 POC Glucose 292 H Random Glucose 293 H Fasting Glucose Calcium 7.6 L D Troponin I High Sens 10.0 Triglycerides 171 H Cholesterol 136 LDL Cholesterol, Calc 61 HDL Cholesterol 41 Urine Color Urine Appearance Urine pH Ur Specific [place] Urine Protein Urine Glucose (UA) Urine Ketones Urine Blood Urine Nitrite Ur Leukocyte Esterase Urine RBC Urine WBC Ur Squamous Epith Cells Urine Bacteria Hyaline Casts Stool Occult Blood POSITIVE Blood Type Antibody Screen Crossmatch 11/12/24 11/12/24 11/13/24 20:54 22:41 00:20 WBC RBC Hgb Hct MCV MCH MCHC RDW Plt Count MPV Immature Gran % (Auto) Neut % (Auto) Lymph % (Auto) [place] % (Auto) Eos % (Auto) Baso % (Auto) Lymph # (Auto) [place] # (Auto) Eos # (Auto) Baso # (Auto) Abs Immat Gran (auto) Absolute Neuts (auto) Absolute Nucleated RBC Nucleated RBC % (auto) Smear Tech's Comments PT INR APTT Sodium Potassium Chloride Carbon Dioxide Anion Gap BUN Creatinine Estim Creat Clear Calc Estimated GFR POC Glucose 355 H* 204 H Random Glucose Fasting Glucose Calcium Troponin I High Sens Triglycerides Cholesterol LDL Cholesterol, Calc HDL Cholesterol Urine Color Urine Appearance Urine pH Ur Specific [place] Urine Protein Urine Glucose (UA) Urine Ketones Urine Blood Urine Nitrite Ur Leukocyte Esterase Urine RBC Urine WBC Ur Squamous Epith Cells Urine Bacteria Hyaline Casts Stool Occult Blood Blood Type O Positive Antibody Screen NEGATIVE Crossmatch See Detail 11/13/24 11/13/24 11/13/24 05:20 05:43 05:51 WBC 5.7 RBC 2.84 L D Hgb 8.2 L D Hct 25.5 L D MCV 89.8 MCH 28.9 MCHC 32.2 RDW 13.7 Plt Count 250 MPV 10.1 Immature Gran % (Auto) 0.5 H Neut % (Auto) 66.4 Lymph % (Auto) 17.0 L [place] % (Auto) 14.0 H Eos % (Auto) 1.6 Baso % (Auto) 0.5 Lymph # (Auto) 1.0 L [place] # (Auto) 0.8 Eos # (Auto) 0.1 Baso # (Auto) 0.0 Abs Immat Gran (auto) 0.03 Absolute Neuts (auto) 3.8 Absolute Nucleated RBC 0.000 Nucleated RBC % (auto) 0.0 Smear Tech's Comments PT INR APTT Sodium 142 Potassium 4.3 Chloride 105 Carbon Dioxide 27 Anion Gap 14 BUN 46 H Creatinine 1.44 H Estim Creat Clear Calc 26.9 Estimated GFR 35 POC Glucose 52 L* Random Glucose 175 H Fasting Glucose Calcium 7.5 L Troponin I High Sens Triglycerides Cholesterol LDL Cholesterol, Calc HDL Cholesterol Urine Color Yellow Urine Appearance Clear Urine pH 5.5 Ur Specific [place] 1.015 Urine Protein 30 (1+) H Urine Glucose (UA) Negative Urine Ketones Negative Urine Blood Negative Urine Nitrite Negative Ur Leukocyte Esterase Trace H Urine RBC 0-2 Urine WBC 0-5 Ur Squamous Epith Cells 0-2 Urine Bacteria 4+ Hyaline Casts 3-5 Stool Occult Blood Blood Type Antibody Screen Crossmatch 11/13/24 11/13/24 11/13/24 06:22 12:28 18:25 WBC RBC Hgb Hct MCV MCH MCHC RDW Plt Count MPV Immature Gran % (Auto) Neut % (Auto) Lymph % (Auto) [place] % (Auto) Eos % (Auto) Baso % (Auto) Lymph # (Auto) [place] # (Auto) Eos # (Auto) Baso # (Auto) Abs Immat Gran (auto) Absolute Neuts (auto) Absolute Nucleated RBC Nucleated RBC % (auto) Smear Tech's Comments PT INR APTT Sodium Potassium Chloride Carbon Dioxide Anion Gap BUN Creatinine Estim Creat Clear Calc Estimated GFR POC Glucose 145 H 146 H 181 H Random Glucose Fasting Glucose Calcium Troponin I High Sens Triglycerides Cholesterol LDL Cholesterol, Calc HDL Cholesterol Urine Color Urine Appearance Urine pH Ur Specific [place] Urine Protein Urine Glucose (UA) Urine Ketones Urine Blood Urine Nitrite Ur Leukocyte Esterase Urine RBC Urine WBC Ur Squamous Epith Cells Urine Bacteria Hyaline Casts Stool Occult Blood Blood Type Antibody Screen Crossmatch 11/13/24 11/14/24 11/14/24 23:40 06:49 06:59 WBC 5.0 RBC 3.07 L Hgb 8.6 L Hct 28.2 L MCV 91.9 MCH 28.0 MCHC 30.5 L RDW 14.1 Plt Count 248 MPV 10.6 Immature Gran % (Auto) 0.4 Neut % (Auto) 57.8 Lymph % (Auto) 18.2 L [place] % (Auto) 20.2 H Eos % (Auto) 2.6 Baso % (Auto) 0.8 Lymph # (Auto) 0.9 L [place] # (Auto) 1.0 Eos # (Auto) 0.1 Baso # (Auto) 0.0 Abs Immat Gran (auto) 0.02 Absolute Neuts (auto) 2.9 Absolute Nucleated RBC 0.000 Nucleated RBC % (auto) 0.0 Smear Tech's Comments VERIFIED PT INR APTT Sodium 140 Potassium 4.2 Chloride 105 Carbon Dioxide 29 Anion Gap 10 L BUN 31 H Creatinine 1.04 Estim Creat Clear Calc 37.1 Estimated GFR 51 POC Glucose 103 96 Random Glucose 102 Fasting Glucose Calcium 7.7 L Troponin I High Sens Triglycerides Cholesterol LDL Cholesterol, Calc HDL Cholesterol Urine Color Urine Appearance Urine pH Ur Specific [place] Urine Protein Urine Glucose (UA) Urine Ketones Urine Blood Urine Nitrite Ur Leukocyte Esterase Urine RBC Urine WBC Ur Squamous Epith Cells Urine Bacteria Hyaline Casts Stool Occult Blood Blood Type Antibody Screen Crossmatch 11/14/24 11/14/24 11/14/24 11:48 17:29 23:11 WBC RBC Hgb Hct MCV MCH MCHC RDW Plt Count MPV Immature Gran % (Auto) Neut % (Auto) Lymph % (Auto) [place] % (Auto) Eos % (Auto) Baso % (Auto) Lymph # (Auto) [place] # (Auto) Eos # (Auto) Baso # (Auto) Abs Immat Gran (auto) Absolute Neuts (auto) Absolute Nucleated RBC Nucleated RBC % (auto) Smear Tech's Comments PT INR APTT Sodium Potassium Chloride Carbon Dioxide Anion Gap BUN Creatinine Estim Creat Clear Calc Estimated GFR POC Glucose 117 H 110 144 H Random Glucose Fasting Glucose Calcium Troponin I High Sens Triglycerides Cholesterol LDL Cholesterol, Calc HDL Cholesterol Urine Color Urine Appearance Urine pH Ur Specific [place] Urine Protein Urine Glucose (UA) Urine Ketones Urine Blood Urine Nitrite Ur Leukocyte Esterase Urine RBC Urine WBC Ur Squamous Epith Cells Urine Bacteria Hyaline Casts Stool Occult Blood Blood Type Antibody Screen Crossmatch 11/15/24 11/15/24 11/15/24 05:00 07:38 09:47 WBC 4.6 L RBC 3.08 L Hgb 8.8 L Hct 28.2 L MCV 91.6 MCH 28.6 MCHC 31.2 RDW 13.8 Plt Count 254 MPV 10.5 Immature Gran % (Auto) 0.4 Neut % (Auto) 61.2 Lymph % (Auto) 20.4 [place] % (Auto) 14.3 H Eos % (Auto) 3.0 Baso % (Auto) 0.7 Lymph # (Auto) 0.9 L [place] # (Auto) 0.7 Eos # (Auto) 0.1 Baso # (Auto) 0.0 Abs Immat Gran (auto) 0.02 Absolute Neuts (auto) 2.8 Absolute Nucleated RBC 0.000 Nucleated RBC % (auto) 0.0 Smear Tech's Comments PT INR APTT Sodium 139 Potassium 4.1 Chloride 105 Carbon Dioxide 27 Anion Gap 11 L BUN 23 H Creatinine 0.99 Estim Creat Clear Calc 39.0 Estimated GFR 54 POC Glucose 117 H 112 Random Glucose Fasting Glucose 113 H Calcium 7.6 L Troponin I High Sens Triglycerides Cholesterol LDL Cholesterol, Calc HDL Cholesterol Urine Color Urine Appearance Urine pH Ur Specific [place] Urine Protein Urine Glucose (UA) Urine Ketones Urine Blood Urine Nitrite Ur Leukocyte Esterase Urine RBC Urine WBC Ur Squamous Epith Cells Urine Bacteria Hyaline Casts Stool Occult Blood Blood Type Antibody Screen Crossmatch Airway Mallampati Class: III TM Dist: >3cm Neck ROM: Full Heart: rrr Lungs: cta Assessment and Plan Assessment Anesthesia Assessment: Anesthesia Plan Discussed and Chart Reviewed Final Anesthetic Review Family History of Problems with Anesthesia: No History of Problems with Anesthesia: No NPO: Yes ASA Class: III Final Preanesthetic Review: No Changes in Pt Med Stat, Meds/Allgs Chart Reviewed, Consent Obtained/Reviewed and Anes Risks/Benef Reviewed Patient Risk: Intermediate Procedure Risk: Low Anesthetic Plan Anesthetic Plan: MAC: Disposition: Standard PACU
--- NOTE | 2024-11-15 11:17 | P.BOP_ITS ---
Brief Operative Note Date of Service: 11/15/24 Pre-op diagnosis: GI bleed Post-op diagnosis: same Procedure: EGD Surgeon: Andrew Kingston MD Anesthesia: MAC Was an Vp Director Of Finance used for this Procedure?: No Estimated blood loss (mL): 2 Pathology: other Condition: stable Disposition: PACU
--- NOTE | 2024-11-15 11:18 | PM.EVENT ---
Event Note Date of Service: 11/15/24 Event Note: EGD dictated 10 mm ulcerated antral polyp, snared thickened gastric folds, biopsied body and antrum. Rec: oral ppi omeprazole 40 mg daily advance diet hold eliquis x1week flu bx results Time Spent With Patient Time: Total time managing care of this patient today ____ minutes.
[2024-11-15 12:09] LABS: Glucose, Whole Blood 107 mg/dL (60-115)
--- NOTE | 2024-11-15 12:09 | PC.NURSE ---
Patient back from EGD. Chan removed per MD verbal order at 12:00, 11/15/24. Due to void at 18:00 11/15/24.
--- NOTE | 2024-11-15 15:17 | HO.PM.IMPN ---
Subjective Subjective Date of Service: 11/15/24 Interval History: Seen and evaluated this morning stable H&H no bleeding reported planning EGD this afternoon Bradycardia 30-40s Review of Systems Review of Systems: Yes all other systems are reviewed and are negative Physical Exam Vital Signs: Vital Signs: Last Vital Signs Temp 97.1 F 11/15/24 11:47 Pulse 38 L 11/15/24 13:37 Resp 12 11/15/24 11:47 BP 166/55 H 11/15/24 11:52 Pulse Ox 96 11/15/24 11:33 O2 Del Method Room Air 11/15/24 11:33 BMI result Body Mass Index 26.6 Const: Other: Constitutional : interactive, not in distress Cardiovascular : no JVP, no lower extremity edema Respiratory : bilateral chest movement, not in resp distress Gastrointestinal: soft, lax, Non tender Skin : Warm, Dry Neurological : Alert & oriented , No focal deficit , mildly anxious Objective Data Active Medications Acetaminophen (Acetaminophen 325 Mg Tablet) 650 mg PO Q6H PRN PRN Reason: Pain, Mild 1-3,fever,headache Last Admin: 11/15/24 14:45 Dose: 650 mg Documented By: CECE Amlodipine Besylate (Amlodipine Besylate 2.5 Mg Tablet) 2.5 mg PO DAILY [facility]; Protocol Last Admin: 11/15/24 08:45 Dose: 2.5 mg Documented By: CECE Buspirone HCl (Buspirone Hcl 5 Mg Tablet) 5 mg PO TID [facility] Last Admin: 11/15/24 14:45 Dose: 5 mg Documented By: CECE Calcium Carbonate (Calcium Carbonate 750 Mg Tab.Chew) 750 mg PO Q4H PRN PRN Reason: Heartburn Carbidopa/Levodopa (Carbidopa/Levodopa 25/100 Tablet) 1 tab PO TID [facility] Last Admin: 11/15/24 14:45 Dose: 1 tab Documented By: CECE Dextrose (Dextrose 50 % 25 Gm/50 Ml Syringe) 25 gm IVPUSH Q15M PRN; Protocol PRN Reason: per Hypoglycemia Standing Ord. Last Admin: 11/13/24 05:24 Dose: 25 gm Documented By: BRENNA Gabapentin (Gabapentin 100 Mg Capsule) 100 mg PO TID [facility] Last Admin: 11/15/24 14:45 Dose: 100 mg Documented By: CECE Glucose (Glucose Gel 15 Gm Gel..Gram.) 15 gm PO Q15M PRN; Protocol PRN Reason: per Hypoglycemia Standing Ord. Lactated Ringer's (Lr) 1,000 mls @ 80 mls/hr IVCONT .[id number] [facility] Last Admin: 11/15/24 05:47 Dose: 80 mls/hr Documented By: FAREED Insulin Human Lispro (Insulin Lispro 100 Unit/Ml 3 Ml Vial) 0 unit SUBCUT Q6H [facility]; Protocol Last Admin: 11/15/24 11:56 Dose: Not Given Documented By: CECE Non-Admin Reason: No Insulin Coverage Comments: POC 107 Levothyroxine Sodium (Levothyroxine Sodium 50 Mcg Tablet) 50 mcg PO DAILY@0600 [facility] Last Admin: 11/15/24 05:39 Dose: Not Given Documented By: FAREED Non-Admin Reason: NPO Magnesium Hydroxide (Milk Of Magnesia 30 Ml Oral.Susp) 30 ml PO DAILY PRN PRN Reason: Constipation Melatonin (Melatonin 3 Mg Tablet) 6 mg PO BEDTIME PRN PRN Reason: Insomnia Metoprolol Succinate (Metoprolol Succinate Er 25 Mg Tab.Er.24h) 25 mg PO DAILY [facility]; Protocol Last Admin: 11/15/24 08:45 Dose: 25 mg Documented By: CECE Naloxone HCl (Naloxone Hcl 0.4 Mg/Ml Vial) 0.04 mg IVPUSH Q5M PRN PRN Reason: Excessive sedation or RR < 8 Omeprazole (Omeprazole 40 Mg Capsule.Dr) 40 mg PO DAILY@0630 [facility] Ondansetron HCl (Ondansetron Hcl 4 Mg/2 Ml Vial) 4 mg IVPUSH Q8H PRN PRN Reason: Nausea and Vomiting Last Admin: 11/14/24 12:57 Dose: 4 mg Documented By: GWYN Oxycodone HCl (Oxycodone Hcl Immed Release 5 Mg Tablet) 10 mg PO QID PRN PRN Reason: Pain, Severe (Pain Scale 7-10) Last Admin: 11/15/24 02:34 Dose: 10 mg Documented By: FAREED Sertraline HCl (Sertraline Hcl 50 Mg Tablet) 50 mg PO DAILY [facility] Last Admin: 11/15/24 08:46 Dose: 50 mg Documented By: CECE Sodium Chloride (0.9 % Sodium Chloride Flush 3 Ml Syringe) 3 ml IVFLUSH QSHIFT [facility] Last Admin: 11/15/24 14:46 Dose: 3 ml Documented By: CECE Trazodone HCl (Trazodone Hcl 50 Mg Tablet) 50 mg PO TID PRN PRN Reason: Anxiety Last Admin: 11/15/24 08:45 Dose: 50 mg Documented By: CECE Labs 11/15/24 07:38 11/15/24 07:38 Labs: Laboratory Results - last 24 hr 11/14/24 11/14/24 11/15/24 17:29 23:11 05:00 MCV MCH MCHC RDW Plt Count MPV Immature Gran % (Auto) Neut % (Auto) Lymph % (Auto) [place] % (Auto) Eos % (Auto) Baso % (Auto) Lymph # (Auto) [place] # (Auto) Eos # (Auto) Baso # (Auto) Abs Immat Gran (auto) Absolute Neuts (auto) Absolute Nucleated RBC Nucleated RBC % (auto) Anion Gap Estim Creat Clear Calc Estimated GFR POC Glucose 110 144 H 117 H Fasting Glucose Calcium 11/15/24 11/15/24 11/15/24 07:38 09:47 11:55 MCV 91.6 MCH 28.6 MCHC 31.2 RDW 13.8 Plt Count 254 MPV 10.5 Immature Gran % (Auto) 0.4 Neut % (Auto) 61.2 Lymph % (Auto) 20.4 [place] % (Auto) 14.3 H Eos % (Auto) 3.0 Baso % (Auto) 0.7 Lymph # (Auto) 0.9 L [place] # (Auto) 0.7 Eos # (Auto) 0.1 Baso # (Auto) 0.0 Abs Immat Gran (auto) 0.02 Absolute Neuts (auto) 2.8 Absolute Nucleated RBC 0.000 Nucleated RBC % (auto) 0.0 Anion Gap 11 L Estim Creat Clear Calc 39.0 Estimated GFR 54 POC Glucose 112 107 Fasting Glucose 113 H Calcium 7.6 L Assessment and Plan (1) Severe anemia: Status: Acute (2) GI bleed: Status: Acute (3) Blood loss anemia: Status: Acute (4) Acute GI bleeding: Status: Acute (5) Urinary retention: Status: Acute Plan This is a 79-year-old female with pertinent history of congestive heart failure with preserved ejection fraction, paroxysmal atrial fibrillation on Eliquis, CKD stage 4, insulin-dependent type 2 diabetes mellitus, spinal stenosis, mood disorder, pulmonary hypertension, hypothyroidism who presents to the emergency department for evaluation of weakness # Acute symptomatic blood loss anemia due to GI bleed Hb improved >8 after 2 units PRBCs cardiac monitoring Stool occult blood positive Continue IV Protonix DC IVF Hold Eliquis Gastroenterology to do EGD today NPO for now follow H&H get PT Eval # Acute urine retention Straight cath multiple times overnight Placed Chan and monitor Start Tamsulosin if needed # Hx Congestive heart failure with preserved ejection fraction not in exacerbation. Hold Lasix in the setting of GI bleed # Paroxysmal atrial fibrillation Rate controlled. Continue Metoprolol # Elevated BP Add Amlodipine 2.5mg daily and monitor # CKD stage 4 Creatinine baseline # Insulin-dependent type 2 diabetes mellitus with hyperglycemia Accu-Cheks with sliding scale insulin # Mood disorder home mood stabilizers # Hypothyroidism On Synthroid DVT prophylaxis: Mechanical Full code Admit as inpatient and will require overnight hospital stay for PRBC transfusion, monitoring of H&H and GI procedure, which is not possible in a lesser acute setting. GI consult pending Quality Stroke Does the patient have a stroke diagnosis?: No VTE Prior VTE?: No VTE Risk Level:: Medical - moderate - high VTE Device Contraindication: N/A - Device Ordered VTE Drug Contraindication: Treatment Not Indicated
[2024-11-15 16:47] LABS: Glucose, Whole Blood 188 mg/dL (60-115)
[2024-11-15] MEDS: Insulin Lispro 100 UNIT/ML 3 ML VIAL SUBCUT ×2 (17:14→23:24)
--- NOTE | 2024-11-15 21:49 | OP_ITS ---
DATE OF SERVICE: 11/15/2024 SURGEON: Andrew Kingston MD INDICATIONS: GI bleeding. PREOPERATIVE DIAGNOSIS: POSTOPERATIVE DIAGNOSIS: PROCEDURE PERFORMED: Upper endoscopy with snare polypectomy and biopsy. ESTIMATED BLOOD LOSS: COMPLICATIONS: ANESTHESIA: ASSISTANTS: SPECIMENS: MEDICATIONS: Monitored anesthesia care. DESCRIPTION OF PROCEDURE: A history and physical was performed. The risks and benefits of the procedure were explained to the patient. Informed consent was obtained. The patient was placed in the left lateral decubitus position. The Olympus video gastroscope was introduced into the esophagus, stomach, and duodenum. Examination was performed and the scope was removed. She tolerated the procedure well and was returned to recovery area in stable condition. FINDINGS: Esophagus: The esophagus was normal. Stomach: The stomach showed thickened gastric folds with erythema consistent with gastritis. In the antrum, was a 10 mm polyp, which appeared to be an inflammatory polyp with some surface ulceration. This was removed with a hot snare and recovered with a Moreau Net. Antral biopsies were obtained. Duodenum: The bulb and second portion were normal. IMPRESSION: 1. Gastric polyp. 2. Gastritis. RECOMMENDATION: 1. Advance diet. 2. Switch to oral proton pump inhibitor, omeprazole 40 mg daily. 3. Hold Eliquis. 4. Monitor hematocrit. MD BRADLEY Antoine/MODL / [id number]
[2024-11-15 23:12] LABS: Glucose, Whole Blood 169 mg/dL (60-115)
[2024-11-16] VITALS (7 sets, daily range): BP systolic 142–180; BP diastolic 64–84; PULSE 54–80; RESP 14–20; TEMP 36.2–36.8; O2SAT 95–98
[2024-11-16] MEDS: oxyCODONE HCl Immed Release 5 MG TABLET 10 MG PO ×3 (05:56→23:53)
[2024-11-16] MEDS: Levothyroxine Sodium 50 MCG TABLET PO (05:56)
[2024-11-16] MEDS: Omeprazole 40 MG CAPSULE.DR PO (05:56)
[2024-11-16 05:57] LABS: Glucose, Whole Blood 98 mg/dL (60-115)
[2024-11-16 06:35] LABS: MANUAL DIFF FLAG NO
[2024-11-16 06:53] LABS: Anion Gap 11 (12-20); Blood Urea Nitrogen 22 mg/dL (9-16); Calcium 7.6 mg/dL (8.4-10.2); Carbon Dioxide 28 mmol/L (22-29); Chloride 103 mmol/L (96-108); Estimated Glomerular Filt Rate > 60; Glucose Random 105 mg/dL (60-115); Sodium 138 mmol/L (135-145)
[2024-11-16 07:29] LABS: Basophils Percent Auto 0.5 % (0-2); Eosinophils Absolute Auto 0.2 X10*3/uL (0.0-0.4); Eosinophils Percent Auto 3.7 % (0-4); Hematocrit 26.5 % (37.0-47.0); Hemoglobin 8.3 g/dl (12.0-16.0); Imm Gran Abs Auto 0.02 X10*3/uL (0.00-0.03); Imm Gran Pct Auto 0.5 % (0.0-0.4); Lymphocytes Absolute Auto 0.6 X10*3/uL (1.2-4.9); Lymphocytes Percent Auto 14.4 % (20-40); Mean Corpuscular HGB Conc 31.3 g/dl (31.0-35.0); Mean Corpuscular Hemoglobin 28.5 pg (27.0-33.0); Mean Corpuscular Volume 91.1 fL (80.0-98.0); Mean Platelet Volume 10.8 fL (9.4-12.3); Monocytes Absolute Auto 0.6 X10*3/uL (0.1-1.2); Monocytes Percent Auto 14.4 % (2-11); Neutrophils Absolute Auto 2.9 x10*3/uL (2.0-8.3); Neutrophils Percent Auto 66.5 % (45-73); Platelet Count 233 X10*3/uL (160-400); Red Blood Count 2.91 X10*6/uL (4.20-5.50); Red Cell Distribution Width 13.7 % (11.0-16.0); White Blood Count 4.4 X10*3/uL (4.8-10.8)
[2024-11-16] MEDS: traZODone HCL 50 MG TABLET PO ×3 (08:22→23:52)
[2024-11-16] MEDS: amLODIPine Besylate 2.5 MG TABLET PO (08:22)
[2024-11-16] MEDS: Carbidopa/Levodopa 25/100 TABLET 1 TAB PO ×3 (08:22→21:40)
[2024-11-16] MEDS: Sertraline HCL 50 MG TABLET PO (08:22)
[2024-11-16] MEDS: 0.9 % Sodium Chloride Flush 3 ML SYRINGE IVFLUSH ×3 (08:22→21:43)
[2024-11-16] MEDS: busPIRone HCl 5 MG TABLET PO ×3 (08:22→21:40)
[2024-11-16] MEDS: Gabapentin 100 MG CAPSULE PO ×3 (08:22→21:40)
--- NOTE | 2024-11-16 09:57 | HO.POSTANES ---
Post Anesthesia Evaluation Post Anesthesia Evaluation Date of Service: 11/16/24 Vital Signs: Vital Signs Temp Pulse Resp BP Pulse Ox O2 Del Method 11/16/24 09:22 75 170/64 H 96 11/16/24 07:51 97.4 F 75 20 170/64 H 96 Room Air 11/16/24 03:41 97.5 F 54 18 165/69 H 96 Room Air 11/15/24 23:05 98.1 F 71 18 150/69 H 96 Room Air Anesthesia: Monitored Mental Status: Awake Pain Control: Satisfactory Nausea/Vomiting: None Hydration: Adequate Anesthesia-Related Issues: No Anes. Related Issues
--- NOTE | 2024-11-16 11:17 | MHC.CLN ---
F/U PO INTAKE FOLLOWS: 0%, 0%, 0%, 75% WEIGHT LOSS X 10 MONTHS -14% WITH WEIGHT STABLE X 30 DAYS DIET ADVANCED TO REGULAR HOWEVER PT WITH DM AND CHF/CKD RECOMMEND 1500DM 2GM NA DIET SKIN STAGE 1 COCCYX WILL ADD GELATEIN D/T POOR PO AND FRAGILE SKIN SUPP TO PROVIDE 320KCALS, 40G PROTEIN RD TO FOLLOW WEEKLY
[2024-11-16 11:25] LABS: Glucose, Whole Blood 168 mg/dL (60-115)
--- NOTE | 2024-11-16 12:18 | HO.PM.IMPN ---
Subjective Subjective Date of Service: 11/16/24 Interval History: weakness Physical Exam Vital Signs: Vital Signs: Last Vital Signs Temp 97.1 F 11/16/24 11:51 Pulse 70 11/16/24 11:51 Resp 16 11/16/24 11:51 BP 142/84 H 11/16/24 11:51 Pulse Ox 96 11/16/24 09:22 O2 Del Method Room Air 11/16/24 11:51 BMI result Body Mass Index 26.6 Const: Other: Constitutional : interactive, not in distress Cardiovascular : no JVP, no lower extremity edema Respiratory : bilateral chest movement, not in resp distress Gastrointestinal: soft, lax, Non tender Skin : Warm, Dry Neurological : Alert & oriented , No focal deficit , mildly anxious Objective Data Active Medications Acetaminophen (Acetaminophen 325 Mg Tablet) 650 mg PO Q6H PRN PRN Reason: Pain, Mild 1-3,fever,headache Last Admin: 11/15/24 14:45 Dose: 650 mg Documented By: CECE Amlodipine Besylate (Amlodipine Besylate 2.5 Mg Tablet) 2.5 mg PO DAILY [facility]; Protocol Last Admin: 11/16/24 08:22 Dose: 2.5 mg Documented By: CECE Buspirone HCl (Buspirone Hcl 5 Mg Tablet) 5 mg PO TID [facility] Last Admin: 11/16/24 08:22 Dose: 5 mg Documented By: CECE Calcium Carbonate (Calcium Carbonate 750 Mg Tab.Chew) 750 mg PO Q4H PRN PRN Reason: Heartburn Carbidopa/Levodopa (Carbidopa/Levodopa 25/100 Tablet) 1 tab PO TID [facility] Last Admin: 11/16/24 08:22 Dose: 1 tab Documented By: CECE Dextrose (Dextrose 50 % 25 Gm/50 Ml Syringe) 25 gm IVPUSH Q15M PRN; Protocol PRN Reason: per Hypoglycemia Standing Ord. Last Admin: 11/13/24 05:24 Dose: 25 gm Documented By: BRENNA Gabapentin (Gabapentin 100 Mg Capsule) 100 mg PO TID [facility] Last Admin: 11/16/24 08:22 Dose: 100 mg Documented By: CECE Glucose (Glucose Gel 15 Gm Gel..Gram.) 15 gm PO Q15M PRN; Protocol PRN Reason: per Hypoglycemia Standing Ord. Insulin Human Lispro (Insulin Lispro 100 Unit/Ml 3 Ml Vial) 0 unit SUBCUT Q6H [facility]; Protocol Last Admin: 11/16/24 07:00 Dose: Not Given Documented By: CECE Non-Admin Reason: No Insulin Coverage Levothyroxine Sodium (Levothyroxine Sodium 50 Mcg Tablet) 50 mcg PO DAILY@0600 [facility] Last Admin: 11/16/24 05:56 Dose: 50 mcg Documented By: FAREED Magnesium Hydroxide (Milk Of Magnesia 30 Ml Oral.Susp) 30 ml PO DAILY PRN PRN Reason: Constipation Melatonin (Melatonin 3 Mg Tablet) 6 mg PO BEDTIME PRN PRN Reason: Insomnia Metoprolol Succinate (Metoprolol Succinate Er 25 Mg Tab.Er.24h) 25 mg PO DAILY [facility]; Protocol Last Admin: 11/15/24 08:45 Dose: 25 mg Documented By: CECE Naloxone HCl (Naloxone Hcl 0.4 Mg/Ml Vial) 0.04 mg IVPUSH Q5M PRN PRN Reason: Excessive sedation or RR < 8 Omeprazole (Omeprazole 40 Mg Capsule.Dr) 40 mg PO DAILY@0630 [facility] Last Admin: 11/16/24 05:56 Dose: 40 mg Documented By: FAREED Ondansetron HCl (Ondansetron Hcl 4 Mg/2 Ml Vial) 4 mg IVPUSH Q8H PRN PRN Reason: Nausea and Vomiting Last Admin: 11/14/24 12:57 Dose: 4 mg Documented By: GWYN Oxycodone HCl (Oxycodone Hcl Immed Release 5 Mg Tablet) 10 mg PO QID PRN PRN Reason: Pain, Severe (Pain Scale 7-10) Last Admin: 11/16/24 05:56 Dose: 10 mg Documented By: FAREED Sertraline HCl (Sertraline Hcl 50 Mg Tablet) 50 mg PO DAILY [facility] Last Admin: 11/16/24 08:22 Dose: 50 mg Documented By: CECE Sodium Chloride (0.9 % Sodium Chloride Flush 3 Ml Syringe) 3 ml IVFLUSH QSHIFT [facility] Last Admin: 11/16/24 08:22 Dose: 3 ml Documented By: CECE Trazodone HCl (Trazodone Hcl 50 Mg Tablet) 50 mg PO TID PRN PRN Reason: Anxiety Last Admin: 11/16/24 08:22 Dose: 50 mg Documented By: CECE Labs 11/16/24 06:02 11/16/24 06:02 Labs: Laboratory Results - last 24 hr 11/15/24 11/15/24 11/16/24 16:42 23:07 05:53 MCV MCH MCHC RDW Plt Count MPV Immature Gran % (Auto) Neut % (Auto) Lymph % (Auto) [place] % (Auto) Eos % (Auto) Baso % (Auto) Lymph # (Auto) [place] # (Auto) Eos # (Auto) Baso # (Auto) Abs Immat Gran (auto) Absolute Neuts (auto) Absolute Nucleated RBC Nucleated RBC % (auto) Anion Gap Estim Creat Clear Calc Estimated GFR POC Glucose 188 H 169 H 98 Random Glucose Calcium 11/16/24 11/16/24 06:02 11:18 MCV 91.1 MCH 28.5 MCHC 31.3 RDW 13.7 Plt Count 233 MPV 10.8 Immature Gran % (Auto) 0.5 H Neut % (Auto) 66.5 Lymph % (Auto) 14.4 L [place] % (Auto) 14.4 H Eos % (Auto) 3.7 Baso % (Auto) 0.5 Lymph # (Auto) 0.6 L [place] # (Auto) 0.6 Eos # (Auto) 0.2 Baso # (Auto) 0.0 Abs Immat Gran (auto) 0.02 Absolute Neuts (auto) 2.9 Absolute Nucleated RBC 0.000 Nucleated RBC % (auto) 0.0 Anion Gap 11 L Estim Creat Clear Calc 45.0 Estimated GFR > 60 POC Glucose 168 H Random Glucose 105 Calcium 7.6 L Assessment and Plan (1) PAF (paroxysmal atrial fibrillation): Status: Acute Plan 79F PMH hfpef, pafib, dm, mood disorder, pulm htn, hypothryoid presented with weakness Acute blood loss anemia Hemoglobin improved and stable after 2 units PRBC EGD with gastritis and gastric polyp which was biopsied, continue PPI and hold Eliquis 1 week Monitor CBC Acute urinary retention Continue Chan hfpef Holding Lasix Paroxysmal AFib with bradycardia Holding metoprolol, Eliquis on hold as mentioned Monitored on tele Hypertension Amlodipine Diabetes with hyperglycemia Insulin Hypothyroid Levothyroxine Mood disorder Buspirone, sertraline DVT prophylaxis-mechanical due to GI bleed Full Code reason for continued hospitalization: Monitoring bradycardia Quality Stroke Does the patient have a stroke diagnosis?: No VTE Prior VTE?: No VTE Risk Level:: Medical - moderate - high VTE Device Contraindication: N/A - Device Ordered VTE Drug Contraindication: Treatment Not Indicated
--- NOTE | 2024-11-16 14:30 | HO.WOUND ---
Wound Consult: Initial 79yr old? admitted to [facility] on 11/12/24 - See progress notes and H&P for detailed history.? Wound consult placed for sacrum buttock area.? Patient agreeable to assessment and photo documentation.? Patient reports she has the the area to her coccyx for years she reports it is never open and she treats with desitin at home. She reports she has never had to seek treatment for the area in the past. Sacrum and Paerianal Buttock Etiology: MASD - Chronic Wound Bed: Intact dark hyperpigmented tissue - pink intact blanchable tissue - central coccyx area there is a area that appears to be from a previous injury and is scar tissue Drainage / Odor: None Edges: ? mirrored Selina wound: intact ? No Induration, Fluctuance or Warmth noted Pain: denies Goals of Treatment: ? Foam dressing to aid in pressure redistribution and barrier cream to perianal tissue Recommendations: 1. Turn and Reposition every 2 hours and as needed for patient comfort.? Use pillows or wedges to support off loading positions. 2. Off Load all bony prominences with use of pillows and heel boots if needed.? Apply Preventative foams where needed. ? 3. Monitor for incontinence and moisture control, use barrier creams when needed for prevention and treatment. 4. Provide adequate and supplemental nutrition.? 5. Order low air loss mattress. 6. When applicable maintain blood glucose levels per Providers order. Sacrum / Coccyx - Apply skin prep and allow to dry. Apply sacral foam dressing. Peel back and assess Q shift and change every 5 days. Perianal - Off Load Pressure with Q2 hr turns and use of pillows - Cleanse with PH balance spray or wipes, pat dry. ?Apply thin layer of barrier cream to affected area.? Apply twice daily and Reapply thin layer PRN after each episode of incontinence. Re-consult wound care Nurse for wound deterioration or wound changes.
[2024-11-16 16:17] LABS: Glucose, Whole Blood 187 mg/dL (60-115)
[2024-11-16] MEDS: Insulin Lispro 100 UNIT/ML 3 ML VIAL SUBCUT (16:36)
[2024-11-16 20:38] LABS: Glucose, Whole Blood 136 mg/dL (60-115)
[2024-11-17 00:22] VITALS: BP 202/76; PULSE 66; RESP 20; O2SAT 96
[2024-11-17] MEDS: hydrALAZINE HCl 20 MG/ML VIAL 10 MG IVPUSH (01:14)
[2024-11-17 03:32] VITALS: BP 176/72; PULSE 68; RESP 18; TEMP 36.5; O2SAT 95
[2024-11-17] MEDS: oxyCODONE HCl Immed Release 5 MG TABLET 10 MG PO (06:27)
[2024-11-17] MEDS: traZODone HCL 50 MG TABLET PO (06:27)
[2024-11-17] MEDS: Levothyroxine Sodium 50 MCG TABLET PO (06:28)
[2024-11-17] MEDS: Omeprazole 40 MG CAPSULE.DR PO (06:28)
[2024-11-17 06:32] LABS: Hematocrit 26.1 % (37.0-47.0); Hemoglobin 8.5 g/dl (12.0-16.0); Mean Corpuscular HGB Conc 32.6 g/dl (31.0-35.0); Mean Corpuscular Hemoglobin 28.8 pg (27.0-33.0); Mean Corpuscular Volume 88.5 fL (80.0-98.0); Mean Platelet Volume 10.4 fL (9.4-12.3); Platelet Count 212 X10*3/uL (160-400); Red Blood Count 2.95 X10*6/uL (4.20-5.50); Red Cell Distribution Width 13.4 % (11.0-16.0); White Blood Count 5.1 X10*3/uL (4.8-10.8)
[2024-11-17 06:48] LABS: Anion Gap 11 (12-20); Blood Urea Nitrogen 21 mg/dL (9-16); Calcium 7.8 mg/dL (8.4-10.2); Carbon Dioxide 28 mmol/L (22-29); Chloride 103 mmol/L (96-108); Estimated Glomerular Filt Rate 54; Glucose Random 141 mg/dL (60-115); Potassium 4.2 mmol/L (3.3-5.1); Sodium 138 mmol/L (135-145)
[2024-11-17 07:49] LABS: Glucose, Whole Blood 135 mg/dL (60-115)
[2024-11-17 07:51] VITALS: BP 178/66; PULSE 83; RESP 20; TEMP 37.1; O2SAT 97
[2024-11-17] MEDS: Carbidopa/Levodopa 25/100 TABLET 1 TAB PO (08:05)
[2024-11-17] MEDS: Sertraline HCL 50 MG TABLET PO (08:05)
[2024-11-17] MEDS: Gabapentin 100 MG CAPSULE PO (08:05)
[2024-11-17] MEDS: amLODIPine Besylate 2.5 MG TABLET PO (08:05)
[2024-11-17] MEDS: busPIRone HCl 5 MG TABLET PO (08:05)
[2024-11-17 08:09] VITALS: BP 178/66; PULSE 83; O2SAT 97
--- NOTE | 2024-11-17 09:54 | HO.PM.IMPN ---
Subjective Subjective Date of Service: 11/17/24 Interval History: weakness Physical Exam Vital Signs: Vital Signs: Last Vital Signs Temp 98.7 F 11/17/24 07:51 Pulse 83 11/17/24 08:09 Resp 20 11/17/24 07:51 BP 178/66 H 11/17/24 08:09 Pulse Ox 97 11/17/24 08:09 O2 Del Method Room Air 11/17/24 07:51 BMI result Body Mass Index 26.6 Const: Other: Constitutional : interactive, not in distress Cardiovascular : no JVP, no lower extremity edema Respiratory : bilateral chest movement, not in resp distress Gastrointestinal: soft, lax, Non tender Skin : Warm, Dry Neurological : Alert & oriented , No focal deficit , mildly anxious Objective Data Active Medications Acetaminophen (Acetaminophen 325 Mg Tablet) 650 mg PO Q6H PRN PRN Reason: Pain, Mild 1-3,fever,headache Last Admin: 11/15/24 14:45 Dose: 650 mg Documented By: CECE Amlodipine Besylate (Amlodipine Besylate 2.5 Mg Tablet) 2.5 mg PO DAILY [facility]; Protocol Last Admin: 11/17/24 08:05 Dose: 2.5 mg Documented By: BRIE Buspirone HCl (Buspirone Hcl 5 Mg Tablet) 5 mg PO TID [facility] Last Admin: 11/17/24 08:05 Dose: 5 mg Documented By: BRIE Calcium Carbonate (Calcium Carbonate 750 Mg Tab.Chew) 750 mg PO Q4H PRN PRN Reason: Heartburn Carbidopa/Levodopa (Carbidopa/Levodopa 25/100 Tablet) 1 tab PO TID [facility] Last Admin: 11/17/24 08:05 Dose: 1 tab Documented By: BRIE Dextrose (Dextrose 50 % 25 Gm/50 Ml Syringe) 25 gm IVPUSH Q15M PRN; Protocol PRN Reason: per Hypoglycemia Standing Ord. Last Admin: 11/13/24 05:24 Dose: 25 gm Documented By: BRENNA Gabapentin (Gabapentin 100 Mg Capsule) 100 mg PO TID [facility] Last Admin: 11/17/24 08:05 Dose: 100 mg Documented By: BRIE Glucose (Glucose Gel 15 Gm Gel..Gram.) 15 gm PO Q15M PRN; Protocol PRN Reason: per Hypoglycemia Standing Ord. Insulin Human Lispro (Insulin Lispro 100 Unit/Ml 3 Ml Vial) 0 unit SUBCUT Q6H [facility]; Protocol Last Admin: 11/17/24 07:25 Dose: Not Given Documented By: JOCE Non-Admin Reason: pt. has poc tid ac and HS- Levothyroxine Sodium (Levothyroxine Sodium 50 Mcg Tablet) 50 mcg PO DAILY@0600 [facility] Last Admin: 11/17/24 06:28 Dose: 50 mcg Documented By: JOCE Magnesium Hydroxide (Milk Of Magnesia 30 Ml Oral.Susp) 30 ml PO DAILY PRN PRN Reason: Constipation Melatonin (Melatonin 3 Mg Tablet) 6 mg PO BEDTIME PRN PRN Reason: Insomnia Metoprolol Succinate (Metoprolol Succinate Er 25 Mg Tab.Er.24h) 25 mg PO DAILY [facility]; Protocol Last Admin: 11/15/24 08:45 Dose: 25 mg Documented By: CECE Naloxone HCl (Naloxone Hcl 0.4 Mg/Ml Vial) 0.04 mg IVPUSH Q5M PRN PRN Reason: Excessive sedation or RR < 8 Omeprazole (Omeprazole 40 Mg Capsule.Dr) 40 mg PO DAILY@0630 [facility] Last Admin: 11/17/24 06:28 Dose: 40 mg Documented By: JOCE Ondansetron HCl (Ondansetron Hcl 4 Mg/2 Ml Vial) 4 mg IVPUSH Q8H PRN PRN Reason: Nausea and Vomiting Last Admin: 11/14/24 12:57 Dose: 4 mg Documented By: GWYN Oxycodone HCl (Oxycodone Hcl Immed Release 5 Mg Tablet) 10 mg PO QID PRN PRN Reason: Pain, Severe (Pain Scale 7-10) Last Admin: 11/17/24 06:27 Dose: 10 mg Documented By: JOCE Sertraline HCl (Sertraline Hcl 50 Mg Tablet) 50 mg PO DAILY [facility] Last Admin: 11/17/24 08:05 Dose: 50 mg Documented By: BRIE Sodium Chloride (0.9 % Sodium Chloride Flush 3 Ml Syringe) 3 ml IVFLUSH QSHIFT [facility] Last Admin: 11/17/24 08:07 Dose: Not Given Documented By: BRIE Non-Admin Reason: No Access Trazodone HCl (Trazodone Hcl 50 Mg Tablet) 50 mg PO TID PRN PRN Reason: Anxiety Last Admin: 11/17/24 06:27 Dose: 50 mg Documented By: JOCE Comments: per dr. wallace can give early/now. Labs 11/17/24 06:16 11/17/24 06:16 Labs: Laboratory Results - last 24 hr 11/16/24 11/16/24 11/16/24 11:18 16:13 20:34 MCV MCH MCHC RDW Plt Count MPV Absolute Nucleated RBC Nucleated RBC % (auto) Anion Gap Estim Creat Clear Calc Estimated GFR POC Glucose 168 H 187 H 136 H Random Glucose Calcium 11/17/24 11/17/24 06:16 07:44 MCV 88.5 MCH 28.8 MCHC 32.6 RDW 13.4 Plt Count 212 MPV 10.4 Absolute Nucleated RBC 0.000 Nucleated RBC % (auto) 0.0 Anion Gap 11 L Estim Creat Clear Calc 39.0 Estimated GFR 54 POC Glucose 135 H Random Glucose 141 H Calcium 7.8 L Assessment and Plan (1) PAF (paroxysmal atrial fibrillation): Status: Acute Plan 79F PMH hfpef, pafib, dm, mood disorder, pulm htn, hypothryoid presented with weakness Acute blood loss anemia Hemoglobin improved and stable after 2 units PRBC EGD with gastritis and gastric polyp which was biopsied, continue PPI and hold Eliquis 1 week Monitor CBC Acute urinary retention voiding trial hfpef Holding Lasix Paroxysmal AFib with bradycardia Holding metoprolol, Eliquis on hold as mentioned Monitored on tele - resolved Hypertension Amlodipine Diabetes with hyperglycemia Insulin Hypothyroid Levothyroxine Mood disorder Buspirone, sertraline DVT prophylaxis-mechanical due to GI bleed Full Code reason for continued hospitalization: dispo planning Quality Stroke Does the patient have a stroke diagnosis?: No VTE Prior VTE?: No VTE Risk Level:: Medical - moderate - high VTE Device Contraindication: N/A - Device Ordered VTE Drug Contraindication: Treatment Not Indicated
--- NOTE | 2024-11-17 10:25 | PM.DS ---
DS: Providers Provider Date of Service: 11/17/24 Date of admission: 11/12/24 22:26 Date of discharge: 11/17/24 Primary care physician: [place] Raymundo MD Consults: 11/12/24 22:31 Consult to Gastroenterology Routine Consulting Provider: Andrew Kingston Reason for consultation: GI bleed 11/14/24 11:52 Consult to Wound Care Routine Reason for consultation: open area coccyx DS: Diagnosis Discharge Diagnosis (1) PAF (paroxysmal atrial fibrillation): Status: Acute DS: Summary Hospital Course Hospital Course: from initial hpi: 79-year-old female with pertinent history of congestive heart failure with preserved ejection fraction, paroxysmal atrial fibrillation on Eliquis, CKD stage 4, insulin-dependent type 2 diabetes mellitus, spinal stenosis, mood disorder, pulmonary hypertension, hypothyroidism who presents to the emergency department for evaluation of weakness. Patient states she has been feeling weak for the last few days. Endorses easy fatigability. Patient states while she was coming back from her kitchen, she felt weak and lowered herself to the floor. Patient did not hit her head or pass out. Denies light-headedness but may have had dizziness. No chest pain or palpitations. Patient states she noticed dark brown stools but has not noticed black stools or blood in stools. No nausea or vomiting. No hematuria. Denies fever, chills, abdominal pain, changes in urinary habits In the emergency department, hemoglobin found to be 5.7 and 2 unit PRBC ordered. Stool occult blood positive in the ER hospital course: Patient was admitted for acute blood loss anemia. Received 2 units of PRBC and hemoglobin improved appropriately remained stable. EGD showed gastritis and gastric polyp which was biopsied. Recommendations were to continue PPI and hold Eliquis for 1 week. For acute urinary retention required Chan catheter but then passed a voiding trial. For chronic diastolic CHF Lasix was held for possible bleed but can be restarted on discharge. For paroxysmal AFib with bradycardia metoprolol was discontinued. Eliquis will be held as mentioned and then restarted after 1 week. Bradycardia episodes resolved. For hypertension was continued on amlodipine. For diabetes with hyperglycemia was continued on insulin. For hypothyroid was continued on levothyroxine. For mood disorder continued on buspirone and sertraline. Time Attestation Discharge Coordination Time (in mins): 35 Quality: Safe Use of Opioids Does Pt have an Active Cancer Diagnosis on the Problem List?: No Quality: Stroke Does the patient have a stroke diagnosis?: No Physical Exam Vital Signs: Vital Signs: Last Vital Signs Temp 98.7 F 11/17/24 07:51 Pulse 83 11/17/24 08:09 Resp 20 11/17/24 07:51 BP 178/66 H 11/17/24 08:09 Pulse Ox 97 11/17/24 08:09 O2 Del Method Room Air 11/17/24 07:51 BMI result Body Mass Index 26.6 Const: Other: Constitutional : interactive, not in distress Cardiovascular : no JVP, no lower extremity edema Respiratory : bilateral chest movement, not in resp distress Gastrointestinal: soft, lax, Non tender Skin : Warm, Dry Neurological : Alert & oriented , No focal deficit , mildly anxious DS: Data Data Completed and Pending Completed studies during hospitalization [Text1]: Procedures Assistance with Respiratory Ventilation, Less than 24 Consecutive Hours, Continuous Positive Airway Pressure (10/17/22) Transfusion of Nonautologous Red Blood Cells into Peripheral Vein, Percutaneous Approach (03/03/23) Pending studies at discharge: Pending at discharge 11/15/24 11:09 Surgical [PTH] Routine Labs on day of discharge: Laboratory Results - last 24 hr 11/16/24 11/16/24 11/16/24 11:18 16:13 20:34 WBC RBC Hgb Hct MCV MCH MCHC RDW Plt Count MPV Absolute Nucleated RBC Nucleated RBC % (auto) Sodium Potassium Chloride Carbon Dioxide Anion Gap BUN Creatinine Estim Creat Clear Calc Estimated GFR POC Glucose 168 H 187 H 136 H Random Glucose Calcium 11/17/24 11/17/24 06:16 07:44 WBC 5.1 RBC 2.95 L Hgb 8.5 L Hct 26.1 L MCV 88.5 MCH 28.8 MCHC 32.6 RDW 13.4 Plt Count 212 MPV 10.4 Absolute Nucleated RBC 0.000 Nucleated RBC % (auto) 0.0 Sodium 138 Potassium 4.2 Chloride 103 Carbon Dioxide 28 Anion Gap 11 L BUN 21 H Creatinine 0.99 Estim Creat Clear Calc 39.0 Estimated GFR 54 POC Glucose 135 H Random Glucose 141 H Calcium 7.8 L Discharge Plan Discharge Anticipated Discharge Date/Time: 11/17/24 10:15 Patient Disposition: Home Health Service Discharge Diagnosis: anemia Referrals: Andrew Kingston MD [Physician] - 1 Week [place] Raymundo MD [Primary Care Provider] - 1 Week Discharge Medications: New amlodipine 2.5 mg Tablet 2.5 mg PO DAILY Qty: 90 0RF Protocol: Hold for SBP< HOLD for SBP < : 90 omeprazole 40 mg Capsule,Delayed Release(Dr/Ec) 40 mg PO DAILY@0630 Qty: 90 0RF Continued metoclopramide HCl 5 mg tablet 5 mg PO QID gabapentin 100 mg capsule 100 mg PO TID carbidopa-levodopa 25-100 mg tablet 1 tab PO TID sertraline 50 mg tablet 50 mg PO DAILY buspirone 5 mg Tablet 5 mg PO TID oxycodone 10 mg tablet 10 mg PO QID PRN (Reason: pain) Rx Instructions: Partial Fill upon patient request. insulin lispro [Humalog U-100 Insulin] 100 unit/mL Solution See Protocol subcut QIDACHS Qty: 10 0RF Protocol: Insulin Correction Scale Less than or equal to 110 ---- Give (units): 0 111 to 150 Give (units): 0 151 to 200 Give (units): 2 201 to 250 Give (units): 4 251 to 300 Give (units): 6 301 to 350 Give (units): 8 Greater than 350 Give (units): 10 Call MD if Blood Glucose > : 350 sucralfate 1 gram tablet 1 g PO QID potassium chloride 10 mEq tablet extended release 10 meq PO BID furosemide [Lasix] 40 mg tablet 40 mg PO DAILY levothyroxine 50 mcg tablet 50 mcg PO DAILY@0600 trazodone 50 mg tablet 50 mg PO TID PRN (Reason: Anxiety) docusate sodium [Colace] 100 mg capsule 100 mg PO DAILY PRN (Reason: Constipation) Held apixaban 5 mg tablet 5 mg PO BID Qty: 60 5RF Hold Instructions: Resume on 11/22/24. Discontinued omeprazole 20 mg capsule,delayed release(DR/EC) 20 mg PO DAILY@0630 metoprolol succinate 25 mg tablet extended release 24 hr 25 mg PO DAILY Qty: 90 3RF Discharge Orders: Discharge Order (Routine); Ordered 11/17/24 Ordered By: Sher Pink Diet: Advance to usual diet Activity on Discharge: As tolerated Stand Alone Forms: Patient Portal Discharge page Print Language: Albanian Care Plan Goals: recovery Health Concerns: gi bleed, htn Plan of Treatment: started amlodipine becuase of high blood pressure stopped metoprolol because of slow heart rate hold eliquis for 1 week, then restart start omeprazole 40mg daily follow up with GI Assessment: see above
--- NOTE | 2024-11-17 11:02 | MHC.CM.PN ---
Second IMM 11/17/24, Pt. has been medically cleared for DC, she will go home via private transportation and resume her home care services from [facility].
[2024-11-17 11:08] LABS: Glucose, Whole Blood 158 mg/dL (60-115)
[2024-11-17 11:37] VITALS: BP 178/64; PULSE 80; RESP 18; TEMP 36.4; O2SAT 97
[2024-11-17] MEDS: Insulin Lispro 100 UNIT/ML 3 ML VIAL SUBCUT (11:44)
== END 2024-11-17 12:32 | disposition home health service (06) | DRG 378 ==
LOC: HO.ED 22:48 → HO.EDOVER 22:57 → HO.IMC 11-13 17:05
PROVIDERS: Internal Medicine; Student in an Organized Health Care Education/Training Program; Admitting Provider Internal Medicine Gastroenterology; Emergency Provider Emergency Medicine; PCP Internal Medicine; Visit Provider Internal Medicine
PROC: 0DJ08ZZ Inspection of Upper Intestinal Tract, Via Natural or Artificial Opening Endoscopic (ICD-10-PCS; CPT 43235; principal; 2024-11-15 10:30)
DX: K29.71 Gastritis, unspecified, with bleeding (principal); D62 Acute posthemorrhagic anemia; I13.0 Hypertensive heart and chronic kidney disease with heart failure and stage 1 through stage 4 chronic kidney disease, or unspecified chronic kidney disease; I50.32 Chronic diastolic (congestive) heart failure; N18.4 Chronic kidney disease, stage 4 (severe); F39 Unspecified mood [affective] disorder; E11.65 Type 2 diabetes mellitus with hyperglycemia; R33.9 Retention of urine, unspecified; K31.7 Polyp of stomach and duodenum; E03.9 Hypothyroidism, unspecified; I48.0 Paroxysmal atrial fibrillation; E11.22 Type 2 diabetes mellitus with diabetic chronic kidney disease; Z79.4 Long term (current) use of insulin; Z79.01 Long term (current) use of anticoagulants; Z79.890 Hormone replacement therapy; Z79.899 Other long term (current) drug therapy
CPT/HCPCS: 36415; 70450; 72125; 80048; 80061; 81001; 82272; 82947; 84484; 85025; 85027; 85610; 85730; 86850; 86900; 86901; 86923; 88305; 88313; 88342; 93005; 97116; 97162; 99285; J0360; J2003; J2405; J2470; J2704; J3360; J7120; P9016

== ENCOUNTER → 2024-11-12 19:43 | Outpatient (BNV) | payer MEDICARE, SELFPAY | PROVIDERS: Admitting Provider Student in an Organized Health Care Education/Training Program; Emergency Provider Emergency Medicine; Visit Provider Internal Medicine Cardiovascular Disease | DX: I49.1 Atrial premature depolarization (principal); I44.7 Left bundle-branch block, unspecified | CPT/HCPCS: 93010 ==

== ENCOUNTER → 2024-11-12 20:08 | Outpatient (BNV) | payer MEDICARE, SELFPAY | PROVIDERS: Admitting Provider Student in an Organized Health Care Education/Training Program; Emergency Provider Emergency Medicine; Visit Provider Specialist | DX: I95.9 Hypotension, unspecified (principal); R53.1 Weakness; R42 Dizziness and giddiness | CPT/HCPCS: 70450; 72125 ==

== ENCOUNTER → 2024-11-12 20:15 | Outpatient (BNV) | payer MEDICARE, SELFPAY | PROVIDERS: Emergency Provider Emergency Medicine; Visit Provider Student in an Organized Health Care Education/Training Program | DX: K92.2 Gastrointestinal hemorrhage, unspecified (principal); D50.0 Iron deficiency anemia secondary to blood loss (chronic) | CPT/HCPCS: 99222; 99232; 99233; 99239; 99499 ==

== ENCOUNTER 2024-12-01 13:25 | Outpatient (AMB) | payer MEDICARE, SELFPAY ==
--- NOTE | 2024-12-01 13:27 | MHC.OFFVIS ---
Vital Signs 12/01/24 13:30 Height 5 ft Weight 131 lb 6.328 oz BMI 25.7 BP 122/56 L Blood Pressure Location Lt brachial Position Sitting Pulse 63 Pulse Source Monitor Intake Visit Reasons: 1m follow up after testing r/s 11/17/24 Intake Note: 1 mth f/up Electronic Video Games Servicer Required: No Accompanied by: Self / Same As Patient Allergies levofloxacin [From LEVAQUIN] Adverse Reaction (Mild, Verified 11/12/24 19:41) flushed Medication List - Last Reconciled 12/01/24 by Osbaldo Arora NP amiodarone 200 mg PO DAILY amlodipine 2.5 mg See Protocol PO DAILY apixaban 5 mg PO BID buspirone 5 mg PO TID carbidopa-levodopa 25-100 mg 1 tab PO TID docusate sodium (Colace) 100 mg PO DAILY PRN furosemide (Lasix) 40 mg PO DAILY gabapentin 100 mg PO TID insulin lispro (Humalog U-100 Insulin) See Protocol units subcut QIDACHS levothyroxine 50 mcg PO DAILY@0600 metoclopramide HCl 5 mg PO QID omeprazole 20 mg PO BID oxycodone 10 mg PO QID PRN potassium chloride ER 10 mEq PO BID sertraline 50 mg PO DAILY sucralfate 1 g PO QID trazodone 50 mg PO TID PRN HPI Comments Details: This is a 79-year-old female patient coming in for a follow-up visit. Patient with a history of diastolic heart failure, pulmonary hypertension, hypertension, paroxysmal AFib, and diabetes. At her previous visit, patient stated that she had not been taking all her cardiac medications for over a month due to the cost of Eliquis and inability to refill her amiodarone as she was not following up with the office over a year. Patient was switched from amiodarone to metoprolol at her last visit due to questions of noncompliance. Since then, patient has had a fall and led to a hospital admission where they found that patient was severely anemic with a hemoglobin at 5.7. Patient underwent an EGD at that time that showed gastritis and gastric polyp and was treated with 2 unit PRBC. Patient's Eliquis was held for a week. Patient's metoprolol will also stopped due to bradycardia episodes during the hospital stay. Today, patient states that she has been back on her regimen and is reports feeling well overall. Patient denies any cardiac symptoms including exertional chest pain, shortness of breath, palpitations, dizziness, orthopnea, PND, leg edema, presyncope, or syncope. Patient is very frail and gets fatigued easily and uses a walker to get around and admits to a sedentary lifestyle. Patient affirms her compliance with all her prescribed medications. [facility] Medical History GRACE (generalized anxiety disorder) MDD (major depressive disorder), recurrent episode GI bleed Anemia Congestive heart failure Depressive disorder PAF (paroxysmal atrial fibrillation) Spinal stenosis CKD (chronic kidney disease), stage IV Diastolic CHF Thyroid activity decreased HTN (hypertension) Diabetes Family History Other Diabetes Social History Household Members: Spouse and Family Housing: House Do you presently have visiting nurse or other home services: Yes Unable to assess alcohol history related to: Unable to respond Alcohol intake: never Patient Tobacco Use Status: Never used Tobacco Second Hand Smoke Exposure: No Advance Directives Date on File: 12/16/22 service: No Current occupational status: retired Review of Systems Const Denies chills, Denies fatigue, Denies fever(s), Denies frequent falls, Denies weakness, Denies weight gain and Denies weight loss ENT Denies dizziness Card Denies chest pain, Denies leg edema, Denies lightheadedness, Denies palpitations, Denies dyspnea and Denies dyspnea on exertion Resp Denies cough, Denies dyspnea and Denies dyspnea on exertion GI Denies hematochezia Musc Denies abnormal gait, Denies muscle weakness, Denies numbness, Denies radiating pain into limb and Denies tingling Neuro Denies abnormal gait, Denies dizziness, Denies frequent falls, Denies numbness, Denies tingling and Denies weakness Endo Denies fatigue and Denies palpitations Physical Exam Vital Signs: Last Vital Signs Pulse 63 12/01/24 13:30 BP 140/66 H 12/01/24 13:30 BMI result Body Mass Index 25.7 Const General: cooperative, healthy appearing, comfortable and no acute distress Orientation/consciousness: patient oriented x3 HEENT Head: Yes normal to inspection Neck Neck: Yes normal visual inspection, Yes trachea midline and Yes supple Chest Chest palpation & inspection: normal inspection of the chest Resp Effort & Inspection: normal respiratory effort Auscultation: clear to auscultation bilaterally, no crackles, no rales, no rhonchi and no wheezes Cardio Jugular venous distension: no JVD Palpation: normal PMI Rate: regular rate Rhythm: regular rhythm Heart sounds: S1 normal heart sound present, S2 normal heart sound present, no click, no gallops, no murmurs and no rubs Peripheral pulses: Peripheral pulses 2+ throughout GI Inspection: Yes normal to inspection Palpation (GI): Soft to palpation Auscultation: normal bowel sounds Skin General skin exam: no rashes or lesions noted Neuro General: patient oriented x3 Extrem General: Yes normal to inspection, No no pedal edema and No calf tenderness Psych Appearance: grossly normal Mental Status: mental status grossly normal Speech and movement: Normal speech and movement present Office Procedures EKG Details: EKG today shows normal sinus rhythm, rate 63 beats per minute, rightward axis, left bundle branch block, T-wave inversion inferiorly and anterolaterally, [place], [place] [id number], Complete Assessment & Plan Assessment & Plan (1) PAF (paroxysmal atrial fibrillation): Code(s): I48.0 - Paroxysmal atrial fibrillation Category: Medical Plan: EKG today shows normal sinus rhythm. Patient's Eliquis was held for a week during hospital visit for acute GI blood loss and received 2 packs of RBCs. Denies any falls or signs of bleeding since hospital discharge. Continue Eliquis therapy for full anticoagulation. Previously, amiodarone therapy was stopped due to her noncompliance with office visits and was switched to a low-dose beta neva however this was discontinued in the hospital due to her episodes of bradycardia. If she experiences prolonged episodes of palpitations and atrial fibrillation, we may need to consider antiarrhythmic therapy in the future. Discussed her EKG abnormality again in detail and recommended ischemic workup. Patient is very frail and continues to refuse further testings at this time. If patient continues to have blood loss related anemia, we may have to discuss Watchman procedure but patient may continue to show resistance for any further procedures. We will repeat a CBC. (2) Chronic heart failure with preserved ejection fraction (HFpEF): Code(s): I50.32 - Chronic diastolic (congestive) heart failure Category: Medical Plan: 11/03/2024-echo study showed a normal LV systolic function with an ejection fraction at 63%, with grade 2 diastolic dysfunction, moderately dilated left atrium and moderate mitral annular calcification. Clinically stable and euvolemic. Continue Lasix therapy. Discussed in detail signs and symptoms to look for with heart failure. (3) Pulmonary hypertension: Code(s): I27.20 - Pulmonary hypertension, unspecified Category: Medical Plan: Echo showed improved pulmonary hypertension and as above. (4) Hospital discharge follow-up: Code(s): Z09 - Encounter for follow-up examination after completed treatment for conditions other than malignant neoplasm Plan: As above. Advised heart healthy diet, exercise as tolerated, med compliance, and management of vascular risk factors. We will follow up in 6 months. In the interim, advised patient to call the office in case of any concerns or change in symptoms. This note was generated using voice recognition software. While every effort has been made to ensure accuracy and proper athletic equipment manager, there may be occasional errors that could affect the content or meaning of the described symptoms. Orders: Orders AMB EKG-In Office Today Osbaldo Arora NP I48.0 - Paroxysmal atrial fibrillation Complete Blood Count no Diff Today Osbaldo Arora NP I48.0 - Paroxysmal atrial fibrillation Medications: Changed From omeprazole 40 mg PO DAILY@0630 90 caps 0RF To omeprazole 20 mg PO BID Sher Pink MD Resumed apixaban 5 mg PO BID 60 tabs 5RF Osbaldo Arora NP Coding Level of Care Code Est Pt Level 4 (72998) Complex EM visit Add On G2211 Diagnoses PAF (paroxysmal atrial fibrillation) I48.0 Chronic heart failure with preserved ejection fraction (HFpEF) I50.32 Pulmonary hypertension I27.20 Hospital discharge follow-up Z09 CPT Codes EKG - CPT: 70358-[id number], Complete ([id number]) Time Spent (min) 32 Comment Time spent in reviewing the chart, test results, assessment, counseling and documentation.
[2024-12-01 13:30] VITALS: BP 122/56; PULSE 63; BMI 25.7
--- OUTSIDE RECORDS SUMMARY | 2024-12-01 15:50 | XMS_ITS | Clinical Summary ---
Author Organization [facility] Address [address] [place] [address] Phone Care Team Providers Care Editing Internship Name Role Phone [place] Raymundo MD Primary Care Provider [phone] Allergies Active Allergy Reactions Criticality Noted Date [...] Relation Comments Diabetes Father Heart disease Father [place] Diabetes Mother grandmother Diabetes Sibling sister Relation [...] 2.30(A) 0.50 - 1.10 mg/dL eGFR Non-Afr Albanian 22 Hemoglobin A1C 7.5(A) 4.0 - 6.0 Microalbumin Urine Random (External Result Entry) 24.5 Microalb/Creat Ratio, Ur 31.5 06/11/2022 Historical Provider LAB BLOOD ORDERABLES Kristen l Result from Last 3 Months or Most Recently Relevant to Health Maintenance Insurance [facility] Care Teams Editing Internship Relationship Specialty Start Date End Date [place] Raymundo MD [address] [place] [address] PCP - General 07/09/20
== END 2024-12-01 13:55 | disposition home or self-care (01) ==
LOC: HO.HCS 13:26
PROVIDERS: PCP Internal Medicine
DX: I48.0 Paroxysmal atrial fibrillation (principal); I50.32 Chronic diastolic (congestive) heart failure; I27.20 Pulmonary hypertension, unspecified; Z09 Encounter for follow-up examination after completed treatment for conditions other than malignant neoplasm
CPT/HCPCS: 93010; 99214; G2211

== ENCOUNTER → 2024-12-01 13:25 | Outpatient (BNVA) | payer MEDICARE, SELFPAY | PROVIDERS: PCP Internal Medicine | DX: I48.0 Paroxysmal atrial fibrillation (principal); I11.0 Hypertensive heart disease with heart failure; I50.32 Chronic diastolic (congestive) heart failure; I27.20 Pulmonary hypertension, unspecified; E11.9 Type 2 diabetes mellitus without complications; Z09 Encounter for follow-up examination after completed treatment for conditions other than malignant neoplasm | CPT/HCPCS: 93005; 99212 ==

== ENCOUNTER 2025-01-19 14:16 | Emergency (ER) | payer MEDICARE, SELFPAY ==
--- NOTE | ~2025-01-19 | XR_ITS ---
EXAMINATION: XR CHEST CLINICAL INFORMATION: weakness COMPARISON: 02/26/2024. TECHNIQUE: Frontal view of the chest was obtained. FINDINGS: Borderline cardiac enlargement. Mediastinal and hilar contours appear normal. The lungs are clear bilaterally. No pneumothorax or effusion. No focal osseous or soft tissue abnormality. XR/XR chest 1V IMPRESSION: No active pulmonary disease. Electronically signed by: Leandro Jain MD 01/19/2025 03:53 PM EDT
--- NOTE | ~2025-01-19 | CT_ITS ---
CLINICAL HISTORY: abd pain, hx of bleed CT abdomen and pelvis with and without contrast Comparison: CT/FL/SR - CT ABDOMEN PELVIS WITHOUT IV CONTRAST - 02/25/24 21:52 EDT Findings: No consolidation or effusion. Gallbladder is not seen. Pneumobilia is present, new since the prior examination. Mucosal enhancement involves the extrahepatic biliary tree. Common bile duct measures 10 mm, Which is increased mild wfcj-djkueqz-csfo-right hydronephrosis is present. Solid organs are otherwise within normal limits. Mild ojja-hovyupc-zuij-right ureteral dilatation. No bowel obstruction, pneumoperitoneum, or pneumatosis. There is moderate right colonic thickening. No evidence of contrast extravasation into the bowel lumen to indicate active hemorrhage. Moderate urinary bladder dilatation.Appendix is not seen. The bones are intact. IMPRESSION: 1. No evidence of active gastrointestinal hemorrhage. 2. Pneumobilia with an associated mural enhancement of the biliary tree and biliary ductal dilatation. Findings may indicate cholangitis. ERCP is recommended to assess for distal common bile duct obstruction. 3. Right colonic thickening. Further assessment with endoscopy is recommended to assess for underlying neoplasm. 4. Urinary bladder dilatation. This document has been electronically signed by: Daria Hadley MD on 01/19/2025 18:45:00
--- NOTE | 2025-01-19 14:22 | ECG_ITS ---
Test Reason : Syncope Blood Pressure : */* mmHG Vent. Rate : 78 BPM Atrial Rate : * BPM P-R Int : * ms QRS Dur : 128 ms QT Int : 424 ms P-R-T Axes : * 6 156 degrees QTcB Int : 483 ms NSR with PACs Left bundle branch block Abnormal ECG When compared with ECG of 12-Nov-2024 19:56, No significant change was found Referred By: Generic ED Physician Electronically Signed By: Taye Florez
[2025-01-19 14:25] VITALS: BP 96/48; PULSE 47; O2SAT 98
[2025-01-19 14:29] VITALS: BP 141/59; PULSE 82; RESP 15; TEMP 37.1; O2SAT 97
[2025-01-19 14:31] VITALS: BP 141/59; PULSE 84; RESP 16; TEMP 37.1; BMI 24.4
[2025-01-19 14:38] VITALS: PULSE 80; O2SAT 98
[2025-01-19 15:04] LABS: Hematocrit 24.6 % (37.0-47.0); Hemoglobin 7.3 g/dl (12.0-16.0); Imm Gran Abs Auto 0.03 X10*3/uL (0.00-0.03); Imm Gran Pct Auto 1.3 % (0.0-0.4); Lymphocytes Absolute Auto 0.3 X10*3/uL (1.2-4.9); MANUAL DIFF FLAG SCAN; Mean Corpuscular HGB Conc 29.7 g/dl (31.0-35.0); Mean Corpuscular Hemoglobin 25.3 pg (27.0-33.0); Mean Corpuscular Volume 85.4 fL (80.0-98.0); NRBC Abs Auto 0.000 X10*3/uL (0.0-0.012); NRBC Pct Auto 0.0 /100WBC (0.0-0.2); Platelet Count 185 X10*3/uL (160-400); Red Blood Count 2.88 X10*6/uL (4.20-5.50); SCAN SMEAR FLAG 1
[2025-01-19 15:08] LABS: White Blood Count 2.3 X10*3/uL (4.8-10.8)
[2025-01-19 15:11] LABS: INTERNATIONAL NORM RATIO 1.7 (0.9-1.1); Prothrombin Time 19.8 SEC (10.9-12.4)
--- NOTE | 2025-01-19 15:18 | ED.GENADULT ---
HPI - General Adult General Chief complaint: Syncope Stated complaint: WEAK,NAUSEA,DIARRHEA,ABD PAIN Time Seen by Provider: 01/19/25 15:15 Source: patient Mode of arrival: EMS Limitations: no limitations History of Present Illness ED Provider: Valerie Mobley PA-C HPI narrative: 79-year-old female with medical history of CAD, MDD, anemia, CKD, CHF, HTN, T2DM, AFib on apixaban, presents to ED by EMS due to weakness, and near syncopal episode. Patient states she had diarrhea when using the restroom this morning upon waking up, and had trouble getting off the toilet due to weakness in her legs she could not stand up. Patient reports while on the toilet with episode of diarrhea, she was experiencing some nausea, and lower abdominal cramping pain. Patient reports stool was soft, liquidy and light brown in color. Patient also states she has had increased urinary frequency without dysuria. Patient lives at home with her sister who was able to find her in the bathroom and called EMS. Patient denies injury, fall, loss of consciousness, head strike. Patient denies recent illness or antibiotic use. Patient denies chest pain, shortness of breath, vomiting, black/tarry stool, dizziness, headache, visual changes MD complaint: weakness Related Data Home Medications ?Medication ?Instructions ?Recorded ?Confirmed levothyroxine 50 mcg tablet 50 mcg PO DAILY@0600 10/11/22 12/01/24 docusate sodium 100 mg capsule 100 mg PO DAILY PRN Constipation 11/27/22 12/01/24 (Colace) sucralfate 1 gram tablet 1 g PO QID 12/16/22 12/01/24 furosemide 40 mg tablet (Lasix) 40 mg PO DAILY 02/13/23 12/01/24 potassium chloride 10 mEq 10 meq PO BID 02/13/23 12/01/24 tablet,extended release trazodone 50 mg tablet 50 mg PO TID PRN Anxiety 03/03/23 12/01/24 gabapentin 100 mg capsule 100 mg PO TID 08/25/23 12/01/24 metoclopramide HCl 5 mg tablet 5 mg PO QID 08/25/23 12/01/24 buspirone 5 mg tablet 5 mg PO TID 12/29/23 12/01/24 carbidopa 25 mg-levodopa 100 mg 1 tab PO TID 12/29/23 12/01/24 tablet oxycodone 10 mg tablet 10 mg PO QID PRN pain 12/29/23 12/01/24 sertraline 50 mg tablet 50 mg PO DAILY 12/29/23 12/01/24 omeprazole 40 mg capsule,delayed 20 mg PO BID 12/01/24 12/01/24 release Previous Rx's ?Medication ?Instructions ?Recorded insulin lispro 100 unit/mL See Protocol subcut QIDACHS #10 mL 11/07/22 subcutaneous solution (Humalog U-100 Insulin) apixaban 5 mg tablet 5 mg PO BID #60 tabs 09/30/24 amlodipine 2.5 mg tablet 2.5 mg PO DAILY #90 tabs 11/17/24 nitrofurantoin 100 mg PO BID 5 days #10 caps 01/19/25 monohydrate/macrocrystals 100 mg capsule (Macrobid) Allergies Allergy/AdvReac Type Severity Reaction Status Date / Time levofloxacin (From [place]) AdvReac Mild flushed Verified 01/19/25 14:37 Review of Systems Review of Systems: CONST: Negative for fever, body aches and chills. HENT: Negative for neck pain/stiffness, headache, congestion, sore throat, swelling. EYES: Negative for discharge/pain or vision changes. RESP: Negative for cough/hemoptysis and shortness of breath. CV: Negative chest pain, difficulty breathing, palpitations. ABD: vomiting. POS diarrhea, diffuse abd pain, nausea : Negative increase frequency, dysuria, blood in urine or stool. POS increased urinary frequency MUSC: Negative for muscle aches, edema. SKIN: Negative rash, lesions/sores. NEURO: Negative headache, dizziness. POS weakness Yes all other systems are reviewed and are negative PMFSH Past Medical History Attestation statement: The following information was validated with the patient. Source: old records reviewed and nursing notes reviewed Medical History GRACE (generalized anxiety disorder) MDD (major depressive disorder), recurrent episode GI bleed Anemia Congestive heart failure Depressive disorder PAF (paroxysmal atrial fibrillation) Spinal stenosis CKD (chronic kidney disease), stage IV Diastolic CHF Thyroid activity decreased HTN (hypertension) Diabetes Family History Family History Other Diabetes Social History Social History Household Members: Spouse and Family Housing: House Do you presently have visiting nurse or other home services: Yes Unable to assess alcohol history related to: Unable to respond Alcohol intake: never Patient Tobacco Use Status: Never used Tobacco Smoked in Last 30 Days: No Second Hand Smoke Exposure: No Advance Directives: Yes Advance Directives on File: Yes Advance Directives Date on File: 12/16/22 service: No Current occupational status: retired Physical Exam ED Vital Signs: Vital Signs - 24 hr 01/19/25 14:29 01/19/25 14:31 01/19/25 14:38 Temperature 98.7 F 98.7 F Pulse Rate 82 84 Respiratory Rate 15 16 Blood Pressure 141/59 H 141/59 H Pulse Oximetry 97 98 Oxygen Delivery Method Room Air Room Air Room Air 01/19/25 18:16 Temperature 98.7 F Pulse Rate 81 Respiratory Rate 15 Blood Pressure 135/73 Pulse Oximetry 93 Oxygen Delivery Method Room Air BMI result Body Mass Index 24.4 GENERAL APPEARANCE: ?AxOx4, no acute distress, non-toxic appearing. HEENT: ?NC, AT. Dry oral MM. EOMI, clear conjunctiva, oropharynx clear. NECK: ?Supple without lymphadenopathy.? No stiffness or restricted ROM. HEART:? irregular rate and rhythm, no m/r/g LUNGS:? CTAB, moving air well. No crackles or wheezes are heard. ABDOMEN: ?Soft, non-distended, diffusely tender TTP. BACK: No CVAT, no obvious deformity. EXTREMITIES: ?Without cyanosis, clubbing or edema. NEUROLOGICAL: ?Grossly nonfocal. Alert and oriented, moving all 4 extremities. Skin: ?Warm and dry without any rash. Medications Administered Discontinued Medications Generic Name Dose Route Start Last Admin Trade Name Freq PRN Reason Stop Dose Admin Iohexol 100 ml 01/19/25 17:34 01/19/25 17:35 Iohexol 350 Mg/Ml 100 Ml Infus..Btl IV 01/19/25 17:35 80 ml ONCE ONE Administration Trazodone HCl 50 mg 01/19/25 19:18 01/19/25 20:03 Trazodone Hcl 50 Mg Tablet PO 01/19/25 19:19 50 mg ONCE ONE Administration Medical Decision Making Medical Decision Making MDM Narrative: 79-year-old female with medical history of CAD, MDD, anemia, CKD, CHF, HTN, T2DM, AFib on apixaban, presents to ED by EMS due to weakness, and near syncopal episode. Patient states she had diarrhea when using the restroom this morning upon waking up, and had trouble getting off the toilet due to weakness in her legs she could not stand up. Patient reports while on the toilet with episode of diarrhea, she was experiencing some nausea, and lower abdominal cramping pain. Patient reports stool was soft, liquidy and light brown in color. Patient states she has had increased urinary frequency without dysuria. Patient lives at home with her sister who was able to find her in the bathroom and called EMS. Patient denies injury, fall, loss of consciousness, head strike. Patient denies recent illness or antibiotic use. VSS, frail and pale looking 79-year-old, no acute distress, nontoxic appearing. Physical exam reveals irregular rate and rhythm without murmurs/rubs or gallops, and diffuse abdominal pain to palpation. Upon obtaining occult stool blood, patient had stool leaking from rectum, stool dark in color. EKG reveals atrial fibrillation. Course 16:12- labs reveal low H&H- Hgb:7.3/Hct: 24.6. Upon chart review patient with a chronically low H&H, will evaluate for potential GI bleed. I have obtained a type and screen at this time for potential transfusion. CXR reveals cardiomegaly, without pneumothorax or effusion. Awaiting CT abdomen and pelvis GI bleed protocol for abdominal evaluation. Initial troponin 11.7, will obtain 2nd to evaluate for delta change. 21:00- repeat lab work shows increase of H&H- Hgb:7.8/Hct:25.0, UA reveals positive nitrites, trace leukocyte esterases, 4+ bacteria, and 0-2 squamous epithelial cells-indicative of UTI. Initial troponin 11.7, 2nd troponin 12.3; troponins flat, without positive delta, patient without chest pain, EKG does not reveal any ST elevation/depression- less likely ACS. BNP mildly elevated at 310, no evidence of fluid overload such as JVD, lower extremity edema, lungs clear to auscultation bilaterally on physical exam- less likely CHF exacerbation. Occult blood stool positive for heme. CT abdomen and pelvis GI bleed protocol reveals pneumobilia, mucosal enhancement of the extrahepatic biliary tree, bile duct measures 10 mm. Mild left greater than right hydronephrosis, mild left greater than right ureteral dilation. Moderate right colonic thickening. Radiologist's reading suggests possible cholangitis with recommended ERCP, further assessment of right colonic thickening with endoscopy to observe for possible neoplasm. And urinary bladder dilation. I reached out to hospitalist Dr. Hauser who spoke with the patient, patient would like to go home for self-care with . Upon discussing case with Dr. Hauser, he recommended I reached out to GI Dr. Montelongo who suggested EGD can be done outpatient if patient is stable. I spoke with Dr. Hauser who recomended patient to discontinue eliquis untill follow up with GI. Patient hemodynamically stable, feels comfortable for home self-care and able to present outpatient for GI workup. I discussed strict return precautions including worsening dizziness, worsening lightheadedness, worsening abdominal pain, fevers shortness of breath and chest pain. Patient is understanding and agreeable to plan. I will treat patient's UTI with 5 day course of b.i.d. 100 mg MicroBid. Differential Diagnosis Differential Diagnoses: The differential diagnosis associated with the presentation includes GI bleed Electrolyte abnormality Anemia UTI Admission/Observation Consideration of admission/observation: Escalation of care including admission/observation considered Consult Healthcare Provider Management of the patient was discussed with: Hospitalist (Dr. Hauser) Consider admission to this patient, patient does not want admission at this time, wants to go home for self-care and outpatient follow up. Discussed case with Dr. Montelongo who agreed patient can follow up outpatient if stable. Patient hemodynamically stable and would like to follow up as outpatient. Lab Data MDM Lab Attestation statement: I reviewed the patient's lab results. 01/19/25 18:13 01/19/25 14:51 Labs: Lab Results 01/19/25 01/19/25 01/19/25 Range/Units 14:50 14:51 14:52 WBC 2.3 L (4.8-10.8) X10*3/uL RBC 2.88 L (4.20-5.50) X10*6/uL Hgb 7.3 L (12.0-16.0) g/dl Hct 24.6 L (37.0-47.0) % MCV 85.4 (80.0-98.0) fL MCH 25.3 L (27.0-33.0) pg MCHC 29.7 L (31.0-35.0) g/dl RDW 17.3 H (11.0-16.0) % Plt Count 185 (160-400) X10*3/uL MPV 11.2 (9.4-12.3) fL Immature Gran % (Auto) 1.3 H (0.0-0.4) % Neut % (Auto) 77.3 H (45-73) % Lymph % (Auto) 13.5 L (20-40) % [place] % (Auto) 6.6 (2-11) % Eos % (Auto) 0.4 (0-4) % Baso % (Auto) 0.9 (0-2) % Lymph # (Auto) 0.3 L (1.2-4.9) X10*3/uL [place] # (Auto) 0.2 (0.1-1.2) X10*3/uL Eos # (Auto) 0.0 (0.0-0.4) X10*3/uL Baso # (Auto) 0.0 (0.0-0.2) X10*3/uL Abs Immat Gran (auto) 0.03 (0.00-0.03) X10*3/uL Absolute Neuts (auto) 1.8 L (2.0-8.3) x10*3/uL Absolute Nucleated RBC 0.000 (0.0-0.012) X10*3/uL Nucleated RBC % (auto) 0.0 (0.0-0.2) /100WBC Smear Tech's Comments VERIFIED Hold Purple Top SEE NOTE PT 19.8 H D (10.9-12.4) SEC INR 1.7 H (0.9-1.1) Sodium 140 (135-145) mmol/L Potassium 4.5 (3.3-5.1) mmol/L Chloride 107 (96-108) mmol/L Carbon Dioxide 26 (22-29) mmol/L Anion Gap 12 (12-20) BUN 53 H (9-16) mg/dL Creatinine 1.38 (0.5-1.4) mg/dL Estim Creat Clear Calc 26.9 Estimated GFR 37 Random Glucose 140 H (60-115) mg/dL Lactic Acid 1.0 (0.5-2.0) mmol/L Calcium 7.7 L (8.4-10.2) mg/dL Total Bilirubin 0.2 (0.0-1.0) mg/dL Direct Bilirubin < 0.2 (0.0-0.5) mg/dL AST 13 (5-31) U/L ALT < 6 (0-31) U/L Alkaline Phosphatase 229 H (39-117) U/L Troponin I High Sens 11.7 (<3.5-17.0) ng/L B-Natriuretic Peptide (<100) pg/mL Total Protein 5.6 L (6.5-8.0) g/dL Albumin 3.1 L (3.5-5.0) g/dL Lipase 12 (8-78) U/L Urine Color Urine Appearance Urine pH (5.0-9.0) Ur Specific [place] (1.005-1.025) Urine Protein (Neg-Trace) mg/dL Urine Glucose (UA) (Negative) mg/dL Urine Ketones (Negative) mg/dL Urine Blood (Negative) Urine Nitrite (Negative) Ur Leukocyte Esterase (Negative) Urine RBC (0-2) /HPF Urine WBC (0-5) /HPF Ur Squamous Epith Cells (0-2) /HPF Urine Bacteria (None Seen) Hyaline Casts (0-2) /LPF Stool Occult Blood (NEGATIVE) Influenza Type A (PCR) NEGATIVE (Negative) Influenza Type B (PCR) NEGATIVE (Negative) RSV RNA Qual (PCR) NEGATIVE (Negative) SARS-CoV-2 RNA (RT-PCR) NEGATIVE (Negative) Blood Type O Positive Antibody Screen NEGATIVE 01/19/25 01/19/25 01/19/25 Range/Units 16:33 16:34 18:13 WBC 4.1 L (4.8-10.8) X10*3/uL RBC 2.96 L (4.20-5.50) X10*6/uL Hgb 7.8 L (12.0-16.0) g/dl Hct 25.0 L (37.0-47.0) % MCV 84.5 (80.0-98.0) fL MCH 26.4 L (27.0-33.0) pg MCHC 31.2 (31.0-35.0) g/dl RDW 17.2 H (11.0-16.0) % Plt Count 186 (160-400) X10*3/uL MPV 10.2 (9.4-12.3) fL Immature Gran % (Auto) (0.0-0.4) % Neut % (Auto) (45-73) % Lymph % (Auto) (20-40) % [place] % (Auto) (2-11) % Eos % (Auto) (0-4) % Baso % (Auto) (0-2) % Lymph # (Auto) (1.2-4.9) X10*3/uL [place] # (Auto) (0.1-1.2) X10*3/uL Eos # (Auto) (0.0-0.4) X10*3/uL Baso # (Auto) (0.0-0.2) X10*3/uL Abs Immat Gran (auto) (0.00-0.03) X10*3/uL Absolute Neuts (auto) (2.0-8.3) x10*3/uL Absolute Nucleated RBC 0.000 (0.0-0.012) X10*3/uL Nucleated RBC % (auto) 0.0 (0.0-0.2) /100WBC Smear Tech's Comments Hold Purple Top PT (10.9-12.4) SEC INR (0.9-1.1) Sodium (135-145) mmol/L Potassium (3.3-5.1) mmol/L Chloride (96-108) mmol/L Carbon Dioxide (22-29) mmol/L Anion Gap (12-20) BUN (9-16) mg/dL Creatinine (0.5-1.4) mg/dL Estim Creat Clear Calc Estimated GFR Random Glucose (60-115) mg/dL Lactic Acid (0.5-2.0) mmol/L Calcium (8.4-10.2) mg/dL Total Bilirubin (0.0-1.0) mg/dL Direct Bilirubin (0.0-0.5) mg/dL AST (5-31) U/L ALT (0-31) U/L Alkaline Phosphatase (39-117) U/L Troponin I High Sens 12.3 (<3.5-17.0) ng/L B-Natriuretic Peptide 310 H (<100) pg/mL Total Protein (6.5-8.0) g/dL Albumin (3.5-5.0) g/dL Lipase (8-78) U/L Urine Color Urine Appearance Urine pH (5.0-9.0) Ur Specific [place] (1.005-1.025) Urine Protein (Neg-Trace) mg/dL Urine Glucose (UA) (Negative) mg/dL Urine Ketones (Negative) mg/dL Urine Blood (Negative) Urine Nitrite (Negative) Ur Leukocyte Esterase (Negative) Urine RBC (0-2) /HPF Urine WBC (0-5) /HPF Ur Squamous Epith Cells (0-2) /HPF Urine Bacteria (None Seen) Hyaline Casts (0-2) /LPF Stool Occult Blood POSITIVE (NEGATIVE) Influenza Type A (PCR) (Negative) Influenza Type B (PCR) (Negative) RSV RNA Qual (PCR) (Negative) SARS-CoV-2 RNA (RT-PCR) (Negative) Blood Type Antibody Screen 01/19/25 Range/Units 18:55 WBC (4.8-10.8) X10*3/uL RBC (4.20-5.50) X10*6/uL Hgb (12.0-16.0) g/dl Hct (37.0-47.0) % MCV (80.0-98.0) fL MCH (27.0-33.0) pg MCHC (31.0-35.0) g/dl RDW (11.0-16.0) % Plt Count (160-400) X10*3/uL MPV (9.4-12.3) fL Immature Gran % (Auto) (0.0-0.4) % Neut % (Auto) (45-73) % Lymph % (Auto) (20-40) % [place] % (Auto) (2-11) % Eos % (Auto) (0-4) % Baso % (Auto) (0-2) % Lymph # (Auto) (1.2-4.9) X10*3/uL [place] # (Auto) (0.1-1.2) X10*3/uL Eos # (Auto) (0.0-0.4) X10*3/uL Baso # (Auto) (0.0-0.2) X10*3/uL Abs Immat Gran (auto) (0.00-0.03) X10*3/uL Absolute Neuts (auto) (2.0-8.3) x10*3/uL Absolute Nucleated RBC (0.0-0.012) X10*3/uL Nucleated RBC % (auto) (0.0-0.2) /100WBC Smear Tech's Comments Hold Purple Top PT (10.9-12.4) SEC INR (0.9-1.1) Sodium (135-145) mmol/L Potassium (3.3-5.1) mmol/L Chloride (96-108) mmol/L Carbon Dioxide (22-29) mmol/L Anion Gap (12-20) BUN (9-16) mg/dL Creatinine (0.5-1.4) mg/dL Estim Creat Clear Calc Estimated GFR Random Glucose (60-115) mg/dL Lactic Acid (0.5-2.0) mmol/L Calcium (8.4-10.2) mg/dL Total Bilirubin (0.0-1.0) mg/dL Direct Bilirubin (0.0-0.5) mg/dL AST (5-31) U/L ALT (0-31) U/L Alkaline Phosphatase (39-117) U/L Troponin I High Sens (<3.5-17.0) ng/L B-Natriuretic Peptide (<100) pg/mL Total Protein (6.5-8.0) g/dL Albumin (3.5-5.0) g/dL Lipase (8-78) U/L Urine Color Yellow Urine Appearance Clear Urine pH 5.5 (5.0-9.0) Ur Specific [place] 1.015 (1.005-1.025) Urine Protein Negative (Neg-Trace) mg/dL Urine Glucose (UA) Negative (Negative) mg/dL Urine Ketones Negative (Negative) mg/dL Urine Blood Negative (Negative) Urine Nitrite Positive H (Negative) Ur Leukocyte Esterase Trace H (Negative) Urine RBC 0-2 (0-2) /HPF Urine WBC 0-5 (0-5) /HPF Ur Squamous Epith Cells 0-2 (0-2) /HPF Urine Bacteria 4+ (None Seen) Hyaline Casts 0-2 (0-2) /LPF Stool Occult Blood (NEGATIVE) Influenza Type A (PCR) (Negative) Influenza Type B (PCR) (Negative) RSV RNA Qual (PCR) (Negative) SARS-CoV-2 RNA (RT-PCR) (Negative) Blood Type Antibody Screen Independent Interpretation I performed an independent interpretation of an: EKG Interpretation: I independently interpreted the EKG: Vent. Rate : 78 BPM Atrial Rate : * BPM P-R Int : * ms QRS Dur : 128 ms QT Int : 424 ms P-R-T Axes : * 6 156 degrees QTcB Int : 483 ms Atrial fibrillation Left bundle branch block Abnormal ECG When compared with ECG of 12-Nov-2024 19:56, No significant change was found No ST elevation/depression CXR-cardiomegaly, without pneumothorax, without pleural effusion, and without infiltrates or opacities Radiology Impression Discussion of test interpretation with radiology: I have reviewed the radiologist's reading. Radiologist Impression: CXR FINDINGS: Borderline cardiac enlargement. Mediastinal and hilar contours appear normal. The lungs are clear bilaterally. No pneumothorax or effusion. No focal osseous or soft tissue abnormality. XR/XR chest 1V IMPRESSION: No active pulmonary disease. Electronically signed by: Leandro Jain MD 01/19/2025 03:53 PM EDT Dictated By: Leandro Jain MD Signed By: <Electronically signed by Leandro Jain MD in [place]> 01/19/[address] abdomen/pelvis GI bleed protocol Findings: No consolidation or effusion. Gallbladder is not seen. Pneumobilia is present, new since the prior examination. Mucosal enhancement involves the extrahepatic biliary tree. Common bile duct measures 10 mm, Which is increased mild ytvt-dqxzhzl-[id number]-right hydronephrosis is present. Solid organs are otherwise within normal limits. Mild xtjb-uorireg-diov-right ureteral dilatation. No bowel obstruction, pneumoperitoneum, or pneumatosis. There is moderate right colonic thickening. No evidence of contrast extravasation into the bowel lumen to indicate active hemorrhage. Moderate urinary bladder dilatation.Appendix is not seen. The bones are intact. IMPRESSION: 1. No evidence of active gastrointestinal hemorrhage. 2. Pneumobilia with an associated mural enhancement of the biliary tree and biliary ductal dilatation. Findings may indicate cholangitis. ERCP is recommended to assess for distal common bile duct obstruction. 3. Right colonic thickening. Further assessment with endoscopy is recommended to assess for underlying neoplasm. 4. Urinary bladder dilatation. This document has been electronically signed by: Daria Hadley MD on 01/19/2025 18:45:00 Dictated By: Daria Hadley MD Signed By: <Electronically signed by Daria Hadley MD in [place]> 01/19/25 1846 External Record Review External record reviewed: Inpatient record, Office record and Outpatient record Discharge Plan Discharge Clinical Impression: Abdominal pain, Acute UTI Patient Disposition: Home, Self-Care Instructions: Abdominal Pain (ED), Urinary Tract Infection in Older Adults (ED) Additional Instructions: You were evaluated in the ED today due to weakness and abdominal pain. Your lab work revealed a low hemoglobin and hematocrit which are markers that show anemia. Your hemoglobin was 7.3 your hematocrit was 24.6, upon re-evaluation these numbers increased to 7.8 and 25.0. Your urine was positive for infection- you will be treated with an antibiotic called Macrobid. You will take 100 mg twice a day for 5 days. The stool exam was positive for blood. The CT of your abdomen and pelvis revealed dilation of the biliary duct within your gallbladder, and right colonic thickening. You need further evaluation with an ERCP and endoscopy which will be done by the quality engineering manager. I spoke with hospitalist Dr. Hauser who recommended to stop taking eliquis untill you follow up with GI doctors. You need to call the GI doctors tomorrow to make an appointment. THEY WILL NOT CALL YOU. Please return to the emergency department if you experience worsening abdominal pain, worsening diarrhea, vomiting, chest pain, shortness of breath, fevers, increased weakness, difficulty walking, or any other new/concerning/worsening symptoms. Prescriptions: New nitrofurantoin monohyd/m-cryst [Macrobid] 100 mg capsule 100 mg PO BID 5 Days Qty: 10 0RF Rx Instructions: must administer with a meal/food No Action metoclopramide HCl 5 mg tablet 5 mg PO QID gabapentin 100 mg capsule 100 mg PO TID carbidopa-levodopa 25-100 mg tablet 1 tab PO TID sertraline 50 mg tablet 50 mg PO DAILY buspirone 5 mg Tablet 5 mg PO TID oxycodone 10 mg tablet 10 mg PO QID PRN (Reason: pain) Rx Instructions: Partial Fill upon patient request. amlodipine 2.5 mg Tablet 2.5 mg PO DAILY Qty: 90 0RF Protocol: Hold for SBP< HOLD for SBP < : 90 insulin lispro [Humalog U-100 Insulin] 100 unit/mL Solution See Protocol subcut QIDACHS Qty: 10 0RF Protocol: Insulin Correction Scale Less than or equal to 110 ---- Give (units): 0 111 to 150 Give (units): 0 151 to 200 Give (units): 2 201 to 250 Give (units): 4 251 to 300 Give (units): 6 301 to 350 Give (units): 8 Greater than 350 Give (units): 10 Call MD if Blood Glucose > : 350 sucralfate 1 gram tablet 1 g PO QID potassium chloride 10 mEq tablet extended release 10 meq PO BID furosemide [Lasix] 40 mg tablet 40 mg PO DAILY levothyroxine 50 mcg tablet 50 mcg PO DAILY@0600 trazodone 50 mg tablet 50 mg PO TID PRN (Reason: Anxiety) docusate sodium [Colace] 100 mg capsule 100 mg PO DAILY PRN (Reason: Constipation) apixaban 5 mg tablet 5 mg PO BID Qty: 60 5RF omeprazole 40 mg capsule,delayed release(DR/EC) 20 mg PO BID Ref[place]: [facility] [Provider Group, Gastroenterology] Print Language: Congolese
--- OUTSIDE RECORDS SUMMARY | 2025-01-19 15:20 | XMS_ITS | Clinical Summary ---
Author Organization [facility] Address [address] [place] [address] Phone Care Team Providers Care Blow Mold Machine Operator Name Role Phone [place] Raymundo MD Primary Care Provider [phone] Allergies Active Allergy Reactions Criticality Noted Date [...] Relation Comments Diabetes Father Heart disease Father [place] Diabetes Mother grandmother Diabetes Sibling sister Relation [...] Hemoglobin A1C 09/09/2022 06/11/2022 Influenza Vaccine (#1) 2025 Hepatitis B Vaccine Aged Out No [...] 2.30(A) 0.50 - 1.10 mg/dL eGFR Non-Afr [place] 22 Hemoglobin A1C 7.5(A) 4.0 - 6.0 Microalbumin Urine Random (External Result Entry) 24.5 Microalb/Creat Ratio, Ur 31.5 06/11/2022 Historical Provider LAB BLOOD ORDERABLES Kristen l Result from Last 3 Months or Most Recently Relevant to Health Maintenance Insurance [facility] Care Teams Blow Mold Machine Operator Relationship Specialty Start Date End Date [place] Raymundo MD [address] [place] [address] PCP - General 07/09/20
[2025-01-19 15:21] LABS: Alanine Aminotransferase < 6 U/L (0-31); Albumin Level 3.1 g/dL (3.5-5.0); Alkaline Phosphatase 229 U/L (39-117); Anion Gap 12 (12-20); Aspartate Amino Transferase 13 U/L (5-31); Blood Urea Nitrogen 53 mg/dL (9-16); Calcium 7.7 mg/dL (8.4-10.2); Carbon Dioxide 26 mmol/L (22-29); Chloride 107 mmol/L (96-108); Creatinine Clr Calc Pharmacy 26.9; Estimated Glomerular Filt Rate 37; Lipase 12 U/L (8-78); Potassium 4.5 mmol/L (3.3-5.1); Sodium 140 mmol/L (135-145); Total Protein 5.6 g/dL (6.5-8.0)
[2025-01-19 15:27] LABS: Troponin-I High Sensitivity 11.7 ng/L (<3.5-17.0)
[2025-01-19 15:41] LABS: Resp Syncy Virus RNA Qual PCR NEGATIVE (Negative); SARS COV2 PCR INHOUSE NEGATIVE (Negative)
[2025-01-19 16:56] LABS: B Type Natriuretic Peptide 310 pg/mL (<100)
[2025-01-19] MEDS: iohexoL 350 MG/ML 100 ML INFUS..BTL IV (17:35)
[2025-01-19 17:44] LABS: OBS Int Ctl Valid YES; OBS1 POSITIVE (NEGATIVE)
[2025-01-19 18:16] VITALS: BP 135/73; PULSE 81; RESP 15; TEMP 37.1; O2SAT 93
[2025-01-19 18:18] LABS: Hematocrit 25.0 % (37.0-47.0); Hemoglobin 7.8 g/dl (12.0-16.0); Mean Corpuscular HGB Conc 31.2 g/dl (31.0-35.0); Mean Corpuscular Hemoglobin 26.4 pg (27.0-33.0); Mean Corpuscular Volume 84.5 fL (80.0-98.0); NRBC Abs Auto 0.000 X10*3/uL (0.0-0.012); NRBC Pct Auto 0.0 /100WBC (0.0-0.2); Platelet Count 186 X10*3/uL (160-400); Red Blood Count 2.96 X10*6/uL (4.20-5.50); White Blood Count 4.1 X10*3/uL (4.8-10.8)
[2025-01-19 18:41] LABS: Troponin-I High Sensitivity 12.3 ng/L (<3.5-17.0)
[2025-01-19 19:05] LABS: Appearance Urine Clear; Glucose Urine UA Negative (Negative); PH 5.5 (5.0-9.0); Specific Gravity - Urine 1.015 (1.005-1.025); UMIC TRIGGER UACC YES
[2025-01-19 19:18] LABS: UACC Culture Trigger YES
--- NOTE | 2025-01-20 | PC.NURSE ---
pt resting in bed awaiting transfer.
--- NOTE | 2025-01-20 00:18 | PC.NURSE ---
Took over to [facility] at 23:00, pt is awaiting transport back home, 01/20/25 at 2pm
--- NOTE | 2025-01-20 00:53 | PC.NURSE ---
Pt oob with walker, pt able to ambulate walker. pt transported back home by [facility]
[2025-01-20 00:55] VITALS: BP 135/73; PULSE 81; RESP 15; TEMP 37.1; O2SAT 93
== END 2025-01-20 00:57 | disposition home or self-care (01) ==
PROVIDERS: Emergency Provider Emergency Medicine; PCP Internal Medicine
DX: N39.0 Urinary tract infection, site not specified (principal); R53.1 Weakness; I13.0 Hypertensive heart and chronic kidney disease with heart failure and stage 1 through stage 4 chronic kidney disease, or unspecified chronic kidney disease; I50.32 Chronic diastolic (congestive) heart failure; N18.4 Chronic kidney disease, stage 4 (severe); E11.22 Type 2 diabetes mellitus with diabetic chronic kidney disease; Z79.899 Other long term (current) drug therapy
CPT/HCPCS: 36415; 71045; 74178; 80048; 80076; 81001; 82272; 83605; 83690; 83880; 84484; 85025; 85027; 85610; 86850; 86900; 86901; 87086; 87637; 93005; 99284; 99285; Q9967

== ENCOUNTER → 2025-01-19 14:22 | Outpatient (BNV) | payer MEDICARE, SELFPAY | PROVIDERS: Emergency Provider Emergency Medicine; PCP Internal Medicine; Visit Provider Internal Medicine Cardiovascular Disease | DX: I44.7 Left bundle-branch block, unspecified (principal) | CPT/HCPCS: 93010 ==

== ENCOUNTER → 2025-01-19 15:35 | Outpatient (BNV) | payer MEDICARE, SELFPAY | PROVIDERS: Emergency Provider Emergency Medicine; PCP Internal Medicine; Visit Provider Radiology Diagnostic Radiology | DX: R10.9 Unspecified abdominal pain (principal); R53.1 Weakness | CPT/HCPCS: 71045; 74178 ==

== ENCOUNTER 2025-03-22 13:35 | Outpatient (AMB) | payer MEDICARE, SELFPAY ==
--- NOTE | 2025-03-22 13:38 | A.OFFVIS_ITS ---
Intake Visit Reasons: 6 Months PD Allergies levofloxacin (From LEVAQUIN) Adverse Reaction (Mild, Verified 01/19/25 14:37) flushed HPI Comments Details: 79 yo woman with HTN, CKD, atrial fibb, and difficulty walking for a year with mild parkinsonism. She is presenting with concerns regarding depression, visual impairment, and urinary frequency. She reports experiencing symptoms of depression characterized by feeling a little depressed, without specified history of psychiatric care or medication adherence for these symptoms. Significant visual impairment affects her ability to perform tasks, such as driving, as she clearly states she can?t see well. No past evaluations or treatments for her eyesight issues are noted. Furthermore, she reports urinary frequency, waking every two hours due to the need to urinate, attributed to a urinating pill. There is no indication of the duration, prior evaluations, or treatment adjustments regarding this concern. Her mobility is already assisted due to underlying issues, potentially affecting her overall quality of life. [facility] Medical History (Updated 03/22/25 @ 13:39 by Zeny Gayle MD) Parkinsonism, secondary Multifactorial gait disorder Cerebral atrophy TIA (transient ischemic attack) GRACE (generalized anxiety disorder) MDD (major depressive disorder), recurrent episode GI bleed Anemia Congestive heart failure Depressive disorder PAF (paroxysmal atrial fibrillation) Spinal stenosis CKD (chronic kidney disease), stage IV Diastolic CHF Thyroid activity decreased HTN (hypertension) Diabetes Family History Other Diabetes Social History Household Members: Spouse and Family Housing: House Do you presently have visiting nurse or other home services: Yes Unable to assess alcohol history related to: Unable to respond Alcohol intake: never Patient Tobacco Use Status: Never used Tobacco Second Hand Smoke Exposure: No Advance Directives Date on File: 12/16/22 service: No Current occupational status: retired Review of Systems Const Details: - Neurological: Reports depression - Eyes: Reports visual impairment - Genitourinary: Reports urinary frequency Physical Exam Neuro Other: She is alert and awake with normal spontaneity of speech fluency comprehension and affect. No significant tremor or dyskinesia noted. Hand movements and arm movements were normal. She is in a wheelchair stating that she was using a walker for ambulation. Assessment & Plan Assessment & Plan (1) Parkinsonism: Comment: CT brain WO at [facility] in November 2023: Mod atrophy, no sign of NPH, mild MVD Code(s): G20.C - Parkinsonism, unspecified Category: Medical Qualifiers: Parkinsonism type: unspecified Qualified Code(s): G20.C - Parkinsonism, unspecified Plan Impression: Mild Parkinsonism Rec: Carbidopa/levodopa 25/100 tid Medications: New carbidopa-levodopa 25-100 mg 1 tab PO TID 270 tabs 1RF Coding Level of Care Code Est Pt Level 4 (39292) Diagnoses Parkinsonism, unspecified Parkinsonism type G20.C Parkinsonism type: unspecified
== END 2025-03-22 13:48 | disposition home or self-care (01) ==
LOC: HO.HSM 13:36
PROVIDERS: PCP Internal Medicine; Visit Provider Psychiatry & Neurology Neurology
DX: G20.C Parkinsonism, unspecified (principal)
CPT/HCPCS: 99214

== ENCOUNTER → 2025-03-22 13:35 | Outpatient (BNVA) | payer MEDICARE, SELFPAY | PROVIDERS: PCP Internal Medicine; Visit Provider Psychiatry & Neurology Neurology | DX: G20.C Parkinsonism, unspecified (principal) | CPT/HCPCS: 99212 ==